=== PATIENT | male | born 1965 | race Caucasian/White ===

== ENCOUNTER → 2020-04-15 09:39 | Outpatient (BNVA) | payer MEDICARE, MEDICAID, SELFPAY | PROVIDERS: PCP Internal Medicine; Visit Provider Surgery | DX: K40.20 Bilateral inguinal hernia, without obstruction or gangrene, not specified as recurrent (principal) | CPT/HCPCS: 99203; 99214 ==

== ENCOUNTER → 2020-04-29 09:38 | Outpatient (BNVA) | payer MEDICARE, MEDICAID, SELFPAY | PROVIDERS: PCP Internal Medicine; Referring Provider Internal Medicine; Visit Provider Internal Medicine Endocrinology, Diabetes & Metabolism | DX: K90.0 Celiac disease (principal); E11.21 Type 2 diabetes mellitus with diabetic nephropathy; E11.40 Type 2 diabetes mellitus with diabetic neuropathy, unspecified; E11.65 Type 2 diabetes mellitus with hyperglycemia; E11.3299 Type 2 diabetes mellitus with mild nonproliferative diabetic retinopathy without macular edema, unspecified eye; E11.22 Type 2 diabetes mellitus with diabetic chronic kidney disease; I12.9 Hypertensive chronic kidney disease with stage 1 through stage 4 chronic kidney disease, or unspecified chronic kidney disease; N18.30 Chronic kidney disease, stage 3 unspecified; K31.84 Gastroparesis; E66.01 Morbid (severe) obesity due to excess calories; E78.00 Pure hypercholesterolemia, unspecified; E04.2 Nontoxic multinodular goiter; Z88.1 Allergy status to other antibiotic agents; Z89.519 Acquired absence of unspecified leg below knee; Z79.4 Long term (current) use of insulin; Z79.899 Other long term (current) drug therapy | CPT/HCPCS: 99212 ==

== ENCOUNTER 2020-05-31 11:29 | Emergency (ER) | payer MEDICARE, MEDICAID, SELFPAY ==
[2020-05-31 11:45] VITALS: BP 180/93; PULSE 115; RESP 22; TEMP 39.1; O2SAT 97; BMI 49.3
[2020-05-31 11:50] VITALS: PULSE 115; RESP 22
[2020-05-31 12:26] VITALS: BP 185/95; PULSE 114; RESP 26; O2SAT 96
--- NOTE | 2020-05-31 12:30 | ECG_ITS ---
Test Reason : [id number] Blood Pressure : / mmHG Vent. Rate : 105 BPM Atrial Rate : 105 BPM P-R Int : 194 ms QRS Dur : 086 ms QT Int : 342 ms P-R-T Axes : 036 -26 045 degrees QTc Int : 452 ms Sinus tachycardia Minimal voltage criteria for LVH, may be normal variant Borderline ECG When compared with ECG of 25-MAR-2020 04:51, No significant change was found Referred By: Emerald Ricardo Electronically Signed By:FRANCISCA MOSS MD
--- NOTE | 2020-05-31 12:30 | XR_ITS ---
EXAMINATION: XR CHEST CLINICAL INFORMATION: Shortness of breath COMPARISON: Chest x-ray 03/16/2018 TECHNIQUE: Frontal view of the chest was obtained. FINDINGS: Cardiac silhouette is normal in size. The lungs are well aerated. There is no lobar consolidation. No pleural effusion or pneumothorax. XR/XR chest 1V IMPRESSION: No acute pulmonary pathology.
--- NOTE | 2020-05-31 12:45 | ED.GENADULT ---
HPI - General Adult General Chief complaint: General Medical Stated complaint: fever Time Seen by Provider: 05/31/20 12:02 Source: patient Mode of arrival: ambulatory Limitations: no limitations History of Present Illness HPI narrative: 55-year-old male with a past medical history of insulin-dependent diabetes, diabetic gastroparesis, morbid obesity, , hyperlipidemia, peripheral vascular disease, renal calculi, celiac disease, left BKA here with complaints of fevers, chills, generalized weakness, nausea, vomiting, nonproductive cough, body ache and shortness of breath since yesterday. No chest pain, abdominal pain, diarrhea. Onset (ago): day(s) Radiation: non-radiation Severity: mild Pain Consistency: intermittent Relieving factors: none Exacerbating factors: none Associated symptoms: cough, fever/chills, headaches, malaise, nausea/vomiting, shortness of breath and weakness Treatments prior to arrival: none Related Data Home Medications Medication Instructions Recorded Confirmed cholecalciferol (vitamin D3) 50 50 mcg PO DAILY 04/15/20 04/29/20 mcg (2,000 unit) capsule gabapentin 600 mg tablet 1,200 mg PO BID 04/15/20 04/29/20 lisinopril 10 mg tablet 15 mg PO BEDTIME 04/15/20 04/29/20 allopurinol 100 mg tablet 100 mg PO DAILY 04/29/20 04/29/20 blood sugar diagnostic #10 ea 04/29/20 04/29/20 metoclopramide HCl 5 mg tablet 5 mg PO QIDACHS 04/30/20 Previous Rx's Medication Instructions Recorded insulin regular hum U-500 conc See Rx Instructions SUBCUT .3 04/29/20 times a day 30 Days #9 ml metoclopramide HCl 5 mg tablet 5 mg PO BID PRN #60 tab 04/30/20 amlodipine 10 mg tablet 10 mg PO DAILY #30 tab 05/26/20 omeprazole 40 mg capsule,delayed 40 mg PO QAM #30 cap 05/26/20 release Allergies Allergy/AdvReac Type Severity Reaction Status Date / Time cephalexin [CEPHALEXIN] Allergy Intermediate UNABLE TO Verified 05/31/20 11:45 MOVE ENTIRE BODY, chills and fever, nausea, chills, fever, and nausea vancomycin [VANCOMYCIN] Allergy Intermediate ITCHY,HIVES, Verified 05/31/20 11:45 nausea and vomiting metformin [METFORMIN] AdvReac Intermediate ADVISED Verified 05/31/20 11:45 NOT TO TAKE ANYMORE,SHAKEY,STOMACH PAINS, stomach upset, stomach upset Review of Systems Review of Systems: Yes all other systems are reviewed and are negative Constitutional: Constitutional: Reports no additional constitutional complaints, Reports body ache(s), Denies chills, Reports fatigue, Reports fever(s), Reports headache(s), Reports malaise and Reports weakness Eyes: Eyes: Reports no additional eye complaints and Denies change in vision ENT: Reports system reviewed and no additional complaints, except as documented, Denies dizziness, Reports headache(s), Denies nasal congestion, Denies nasal discharge and Denies neck pain Cardiovascular: Cardiovascular: Reports no additional cardiovascular complaints, Denies chest pain, Denies leg edema and Reports dyspnea Respiratory: Respiratory: Reports no additional respiratory complaints, Reports cough and Reports dyspnea Gastrointestinal: Gastrointestinal: Reports no additional gastrointestinal complaints, Denies abdominal pain, Denies diarrhea, Reports nausea and Reports vomiting Genitourinary: Genitourinary: Denies urinary incontinence Musculoskeletal: Musculoskeletal: Reports no additional musculoskeletal complaints, Denies back pain, Denies arthralgias, Denies joint swelling, Denies neck pain, Denies numbness and Denies tingling Integumentary/Breasts: Skin/Breast: Reports system reviewed and no additional complaints, except as docu and Denies rash Neurologic: Reports system reviewed and no additional complaints, except as documented, Denies Abnormal speech present, Denies dizziness, Reports headache(s), Denies numbness, Denies tingling and Reports weakness Endocrine: Endocrine: Reports fatigue PMFSH Past Medical History Attestation statement: The following information was validated with the patient. 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 Social History Social History Alcohol intake: never Smoking Status: Never smoker Use of substances other than those prescribed or required for medical reasons: No Advance Directives: No Advance Directives Information Provided: No Physical Exam Vital Signs: Vital Signs: Last Vital Signs Temp 99.5 F 05/31/20 16:00 Pulse 101 H 05/31/20 16:00 Resp 18 05/31/20 16:00 BP 152/83 H 05/31/20 16:00 Pulse Ox 98 05/31/20 16:00 Body Mass Index 49.3 Const: General: cooperative, healthy appearing, comfortable and no acute distress Orientation/consciousness: patient oriented x3 Limitations: no limitations HENMT: Head: Yes normal to inspection Ears: hearing grossly normal bilaterally General nose exam: Normal external nose present Face and sinus: Yes normal facial exam Mouth: Normal oral and palatal mucosa present Throat: Yes posterior oropharynx normal Eyes: General: appearance normal, both eyes and all related structures Pupils: Equal, round and reactive pupils present Neck: Neck: Yes normal visual inspection Chest: Chest palpation & inspection: normal inspection of the chest Resp: Effort & Inspection: normal respiratory effort Auscultation: clear to auscultation bilaterally Cardio: Rate: regular rate Rhythm: regular rhythm Peripheral pulses: Peripheral pulses 2+ throughout GI: Inspection: Yes normal to inspection Palpation (GI): Soft to palpation and nontender Auscultation: normal bowel sounds Back/Spine/Pelvis: Thoracic/Lumbar Spine: thoracic and lumbar spine normal to inspection Skin: General skin exam: no rashes or lesions noted Neuro: General: patient oriented x3, no focal motor deficits and normal sensation to monofilament Cranial nerves: Yes Equal, round and reactive pupils present Cognition (Neuro): normal cognition Speech: No Abnormal speech present Gait exam (Neuro): Normal gait present Motor exam (neuro): 5/5 motor strength present throughout Extrem: General: Yes normal to inspection Course Course Course Narrative: 55-year-old male here with complaints of fevers, chills, nausea, vomiting, myalgias, fatigue, headache, cough, shortness of breath since yesterday. On arrival the patient is febrile and tachycardic. Will need labs including blood cultures and lactic acid, chest x-ray, EKG, COVID testing. Will place PIV and give normal saline bolus and antipyretic. 1521-patient has a leukocytosis. Acute on chronic renal failure. He has some mild hyponatremia. This may be from GI losses. Elevated LDH and ferritin likely secondary to inflammatory response with COVID and flu negative here which is surprising. CXR unremarkable. UA negative. At this time fever and leukocytosis from viral source. Additional imaging pending. 1750-CT abd/pelvis, Ct chest negative. UA negative. I discussed with the patient that at this time I cannot rule out an underlying bacterial process or additional viral processes. I would like to give him broad spectrum antibiotics and admit into the hospital for additional testing and evaluation. I would also like to treat his VERONICA and hyponatremia with IV fluids. Patient declined this. I would also like to trend the patient's troponin and repeat his EKG. He refused this. I did explain to him that I do not know the source for his fever and that additional testing would be warranted. I explained him that if he goes home he could get much worse and end up with bacteremia. He was also made aware that worsening hyponatremia could lead to neurologic changes, seizure and . Worsening renal function may cause additional damage to his kidneys if left untreated. Also elevated troponin may be indicative of a nstemi and should be trended. Patient is aware of this. He chose to sign out against medical advice. He deferred antibiotics. He was welcomed to return at any time. Medical Decision Making MDM Narrative Medical decision making narrative: COVID-19 infection, viral infection, underlying pneumonia, UTI Medical Records Medical records reviewed: Yes I reviewed the patient's medical records. Lab Data Lab results reviewed: Yes I reviewed the patient's lab results. Result diagrams: 05/31/20 12:40 05/31/20 12:40 Labs: Lab Results 05/31/20 05/31/20 05/31/20 Range/Units 12:40 12:40 12:40 WBC 23.4 H (4.8-10.8) X10*3/uL RBC 4.16 L (4.60-5.80) X10*6/uL Hgb 12.1 L (14.0-18.0) g/dl Hct 35.5 L (42-52) % MCV 85.3 (80-98) fL MCH 29.1 (27.0-33.0) pg MCHC 34.1 (31.0-36.0) g/dl RDW 13.9 (11.0-16.0) % Plt Count 215 (160-400) X10*3/uL MPV 11.2 (9.4-12.4) fL Immature Gran % (Auto) 0.9 H (0.0-0.4) % Neut % (Auto) 93.2 H (45-73) % Lymph % (Auto) 1.8 L (20-40) % [place] % (Auto) 3.9 (2-11) % Eos % (Auto) 0.0 (0-4) % Baso % (Auto) 0.2 (0-2) % Lymph # (Auto) 0.4 L (1.2-4.9) X10*3/uL [place]eline # (Auto) 0.9 (0.1-1.2) X10*3/uL Eos # (Auto) 0.0 (0.0-0.4) X10*3/uL Baso # (Auto) 0.0 (0.0-0.2) X10*3/uL Abs Immat Gran (auto) 0.22 H (0.00-0.03) X10*3/uL Absolute Neuts (auto) 21.8 H (2.0-8.3) X10*3/uL Absolute Nucleated RBC 0.000 (0.0-0.012) X10*3/uL Nucleated RBC % (auto) 0.0 (0.0-0.2) /100WBC Smear Tech's Comments VERIFIED PT 14.1 H (10.8-13.0) SEC INR 1.2 H (0.9-1.1) Sodium 126 L (135-145) mmol/L Potassium 5.0 (3.3-5.1) mmol/l Chloride 96 (96-108) mmol/L Carbon Dioxide 17 L (22-29) mmol/L Anion Gap 18 (12-20) BUN 36 H (9-16) mg/dL Creatinine 2.22 H (0.5-1.4) mg/dL Estim Creat Clear Calc 59.5 Estimated GFR 31 Random Glucose 313 H (60-115) mg/dL Lactic Acid (0.5-2.0) mmol/L Calcium 8.7 (8.4-10.2) mg/dL Magnesium 1.6 (1.6-2.6) mg/dL Ferritin 802 H (20-250) ng/mL Total Bilirubin 0.7 (0.0-1.0) mg/dL Direct Bilirubin 0.2 (0.0-0.5) mg/dL AST 23 (5-37) U/L ALT 33 (0-40) U/L Alkaline Phosphatase 105 (39-117) U/L Lactate Dehydrogenase 416 H (118-273) U/L Troponin I High Sens (<3.5-35.0) ng/L Total Protein 7.8 (6.5-8.0) g/dL Albumin 3.8 (3.5-5.0) g/dL Procalcitonin ng/mL Urine Color Urine Appearance Urine pH (5.0-8.0) Ur Specific [place] (1.005-1.025) Urine Protein (NEG-TRACE) MG/DL Urine Glucose (UA) (NEG) MG/DL Urine Ketones (NEG) MG/DL Urine Blood (NEG) Urine Nitrite (NEG) Ur Leukocyte Esterase (NEG) Urine RBC (0) /HPF Urine WBC (0-4) /HPF Ur Squamous Epith Cells /LPF Urine Bacteria /LPF Coronavirus (PCR) (Negative) Influenza Type A (PCR) (Negative) Influenza Type B (PCR) (Negative) RSV RNA Qual (PCR) (Negative) 05/31/20 05/31/20 05/31/20 Range/Units 12:40 12:40 12:40 WBC (4.8-10.8) X10*3/uL RBC (4.60-5.80) X10*6/uL Hgb (14.0-18.0) g/dl Hct (42-52) % MCV (80-98) fL MCH (27.0-33.0) pg MCHC (31.0-36.0) g/dl RDW (11.0-16.0) % Plt Count (160-400) X10*3/uL MPV (9.4-12.4) fL Immature Gran % (Auto) (0.0-0.4) % Neut % (Auto) (45-73) % Lymph % (Auto) (20-40) % Ev[place]eline % (Auto) (2-11) % Eos % (Auto) (0-4) % Baso % (Auto) (0-2) % Lymph # (Auto) (1.2-4.9) X10*3/uL [place] # (Auto) (0.1-1.2) X10*3/uL Eos # (Auto) (0.0-0.4) X10*3/uL Baso # (Auto) (0.0-0.2) X10*3/uL Abs Immat Gran (auto) (0.00-0.03) X10*3/uL Absolute Neuts (auto) (2.0-8.3) X10*3/uL Absolute Nucleated RBC (0.0-0.012) X10*3/uL Nucleated RBC % (auto) (0.0-0.2) /100WBC Smear Tech's Comments PT (10.8-13.0) SEC INR (0.9-1.1) Sodium (135-145) mmol/L Potassium (3.3-5.1) mmol/l Chloride (96-108) mmol/L Carbon Dioxide (22-29) mmol/L Anion Gap (12-20) BUN (9-16) mg/dL Creatinine (0.5-1.4) mg/dL Estim Creat Clear Calc Estimated GFR Random Glucose (60-115) mg/dL Lactic Acid 1.3 (0.5-2.0) mmol/L Calcium (8.4-10.2) mg/dL Magnesium (1.6-2.6) mg/dL Ferritin (20-250) ng/mL Total Bilirubin (0.0-1.0) mg/dL Direct Bilirubin (0.0-0.5) mg/dL AST (5-37) U/L ALT (0-40) U/L Alkaline Phosphatase (39-117) U/L Lactate Dehydrogenase (118-273) U/L Troponin I High Sens 18.1 (<3.5-35.0) ng/L Total Protein (6.5-8.0) g/dL Albumin (3.5-5.0) g/dL Procalcitonin 0.80 ng/mL Urine Color Urine Appearance Urine pH (5.0-8.0) Ur Specific [place] (1.005-1.025) Urine Protein (NEG-TRACE) MG/DL Urine Glucose (UA) (NEG) MG/DL Urine Ketones (NEG) MG/DL Urine Blood (NEG) Urine Nitrite (NEG) Ur Leukocyte Esterase (NEG) Urine RBC (0) /HPF Urine WBC (0-4) /HPF Ur Squamous Epith Cells /LPF Urine Bacteria /LPF Coronavirus (PCR) (Negative) Influenza Type A (PCR) (Negative) Influenza Type B (PCR) (Negative) RSV RNA Qual (PCR) (Negative) 05/31/20 05/31/20 Range/Units 12:44 15:46 WBC (4.8-10.8) X10*3/uL RBC (4.60-5.80) X10*6/uL Hgb (14.0-18.0) g/dl Hct (42-52) % MCV (80-98) fL MCH (27.0-33.0) pg MCHC (31.0-36.0) g/dl RDW (11.0-16.0) % Plt Count (160-400) X10*3/uL MPV (9.4-12.4) fL Immature Gran % (Auto) (0.0-0.4) % Neut % (Auto) (45-73) % Lymph % (Auto) (20-40) % Evangeline % (Auto) (2-11) % Eos % (Auto) (0-4) % Baso % (Auto) (0-2) % Lymph # (Auto) (1.2-4.9) X10*3/uL [place] # (Auto) (0.1-1.2) X10*3/uL Eos # (Auto) (0.0-0.4) X10*3/uL Baso # (Auto) (0.0-0.2) X10*3/uL Abs Immat Gran (auto) (0.00-0.03) X10*3/uL Absolute Neuts (auto) (2.0-8.3) X10*3/uL Absolute Nucleated RBC (0.0-0.012) X10*3/uL Nucleated RBC % (auto) (0.0-0.2) /100WBC Smear Tech's Comments PT (10.8-13.0) SEC INR (0.9-1.1) Sodium (135-145) mmol/L Potassium (3.3-5.1) mmol/l Chloride (96-108) mmol/L Carbon Dioxide (22-29) mmol/L Anion Gap (12-20) BUN (9-16) mg/dL Creatinine (0.5-1.4) mg/dL Estim Creat Clear Calc Estimated GFR Random Glucose (60-115) mg/dL Lactic Acid (0.5-2.0) mmol/L Calcium (8.4-10.2) mg/dL Magnesium (1.6-2.6) mg/dL Ferritin (20-250) ng/mL Total Bilirubin (0.0-1.0) mg/dL Direct Bilirubin (0.0-0.5) mg/dL AST (5-37) U/L ALT (0-40) U/L Alkaline Phosphatase (39-117) U/L Lactate Dehydrogenase (118-273) U/L Troponin I High Sens (<3.5-35.0) ng/L Total Protein (6.5-8.0) g/dL Albumin (3.5-5.0) g/dL Procalcitonin ng/mL Urine Color YELLOW Urine Appearance CLEAR Urine pH 6.0 (5.0-8.0) Ur Specific [place] 1.020 (1.005-1.025) Urine Protein 3+ H (NEG-TRACE) MG/DL Urine Glucose (UA) 250 H (NEG) MG/DL Urine Ketones NEG (NEG) MG/DL Urine Blood 2+ H (NEG) Urine Nitrite NEG (NEG) Ur Leukocyte Esterase NEG (NEG) Urine RBC 15-29 H (0) /HPF Urine WBC 0-2 (0-4) /HPF Ur Squamous Epith Cells TRACE /LPF Urine Bacteria NONE /LPF Coronavirus (PCR) NEGATIVE (Negative) Influenza Type A (PCR) NEGATIVE (Negative) Influenza Type B (PCR) NEGATIVE (Negative) RSV RNA Qual (PCR) NEGATIVE (Negative) Imaging Data Ct scan/chest/abdomen: Attestation: I personally reviewed and interpreted this imaging study as follows: Radiologist's impression: CT/CT chest wo con IMPRESSION: 1. Mildly to moderately prominent right inguinal and iliac chain lymphadenopathy has increased compared to 03/25/2020. Otherwise, no demonstrated acute infectious process within the chest, abdomen, or pelvis. Moderate cutaneous thickening and mild subcutaneous edema within the lower anterior abdominal wall and visualized portions of the bilateral upper extremities. 2. Hepatomegaly with hepatic steatosis. Nonspecific splenomegaly. Chest x-ray: Attestation: I personally reviewed and interpreted this imaging study as follows: Radiologist's impression: EXAMINATION: XR CHEST CLINICAL INFORMATION: Shortness of breath COMPARISON: Chest x-ray 03/16/2018 TECHNIQUE: Frontal view of the chest was obtained. FINDINGS: Cardiac silhouette is normal in size. The lungs are well aerated. There is no lobar consolidation. No pleural effusion or pneumothorax. XR/XR chest 1V IMPRESSION: No acute pulmonary pathology. Discharge Plan Discharge Clinical Impression: Fever of unknown origin, Acute hyponatremia, Leukocytosis, VERONICA (acute kidney injury), Elevated troponin Patient Disposition: Left Against Medical Advice Instructions: Against Medical Advice (ED) Additional Instructions: You have a fever and we do not know the cause of it. It was recommended that you stay in the hospital for additional testing and to receive IV antibiotics. You declined this. You are welcome to return at any time. Prescriptions: No Action metoclopramide HCl [Reglan] 5 mg tablet 5 mg PO QIDACHS RF: 0 metoclopramide HCl 5 mg tablet 5 mg PO BID PRN (Reason: nausea and vomiting) Qty: 60 RF: 0 amlodipine 10 mg tablet 10 mg PO DAILY Qty: 30 RF: 5 omeprazole 40 mg capsule,delayed release(DR/EC) 40 mg PO QAM Qty: 30 RF: 4 gabapentin 600 mg tablet 1,200 mg PO BID RF: 0 cholecalciferol (vitamin D3) 50 mcg (2,000 unit) capsule 50 mcg PO DAILY RF: 0 lisinopril 10 mg tablet 15 mg PO BEDTIME RF: 0 allopurinol 100 mg tablet 100 mg PO DAILY RF: 0 (DME) FreeStyle Lite Strips Strip See Rx Instructions ea Not Applicable .MEDSUPPLY Qty: 10 RF: 0 insulin regular hum U-500 conc 500 unit/mL (3 mL) insulin pen See Rx Instructions subcut .3 times a day 30 Days Qty: 9 RF: 6 Referrals: Shereen Cortes MD [Primary Care Provider] - 2 days Interventions: ED Discharge Assessment Last Done: 05/31/20 17:57 Discharge Date/Time: 05/31/20 17:59
[2020-05-31] MEDS: Acetaminophen 325 MG TABLET 975 MG PO (12:56)
[2020-05-31] MEDS: 0.9 % Sodium Chloride 1,000 ML 999 ML IV (12:57)
--- NOTE | 2020-05-31 12:59 | PC.NURSE ---
iv inserted, labs, drawn, criminal researcher applied sinus tach 115, medicated per order, covid swab performed, will continue to monitor.
[2020-05-31 13:07] LABS: Basophils Percent Auto 0.2 % (0-2); Hematocrit 35.5 % (42-52); Hemoglobin 12.1 g/dl (14.0-18.0); Imm Gran Abs Auto 0.22 X10*3/uL (0.00-0.03); Imm Gran Pct Auto 0.9 % (0.0-0.4); Lymphocytes Absolute Auto 0.4 X10*3/uL (1.2-4.9); Lymphocytes Percent Auto 1.8 % (20-40); MANUAL DIFF FLAG SCAN; Mean Corpuscular HGB Conc 34.1 g/dl (31.0-36.0); Mean Corpuscular Hemoglobin 29.1 pg (27.0-33.0); Mean Corpuscular Volume 85.3 fL (80-98); Mean Platelet Volume 11.2 fL (9.4-12.4); Monocytes Absolute Auto 0.9 X10*3/uL (0.1-1.2); Monocytes Percent Auto 3.9 % (2-11); Neutrophils Absolute Auto 21.8 X10*3/uL (2.0-8.3); Neutrophils Percent Auto 93.2 % (45-73); Platelet Count 215 X10*3/uL (160-400); Red Blood Count 4.16 X10*6/uL (4.60-5.80); Red Cell Distribution Width 13.9 % (11.0-16.0); SCAN SMEAR FLAG 1; White Blood Count 23.4 X10*3/uL (4.8-10.8)
[2020-05-31 13:13] LABS: INTERNATIONAL NORM RATIO 1.2 (0.9-1.1); Prothrombin Time 14.1 SEC (10.8-13.0)
[2020-05-31 13:27] LABS: SLIDE REVIEW VERIFIED
[2020-05-31 13:36] LABS: Troponin-I High Sensitivity 18.1 ng/L (<3.5-35.0)
[2020-05-31 13:37] LABS: Alanine Aminotransferase 33 U/L (0-40); Albumin Level 3.8 g/dL (3.5-5.0); Alkaline Phosphatase 105 U/L (39-117); Anion Gap 18 (12-20); Aspartate Amino Transferase 23 U/L (5-37); Bilirubin Direct 0.2 mg/dL (0.0-0.5); Bilirubin Total 0.7 mg/dL (0.0-1.0); Blood Urea Nitrogen 36 mg/dL (9-16); Calcium 8.7 mg/dL (8.4-10.2); Carbon Dioxide 17 mmol/L (22-29); Chloride 96 mmol/L (96-108); Creatinine Clr Calc Pharmacy 59.5; Estimated Glomerular Filt Rate 31; Glucose Random 313 mg/dL (60-115); Lactate Dehydrogenase 416 U/L (118-273); Magnesium 1.6 mg/dL (1.6-2.6); Sodium 126 mmol/L (135-145); Total Protein 7.8 g/dL (6.5-8.0)
[2020-05-31 13:42] LABS: Lactic Acid 1.3 mmol/L (0.5-2.0)
[2020-05-31 13:54] LABS: Ferritin 802 ng/mL (20-250)
[2020-05-31 14:04] VITALS: BP 124/66; PULSE 109; RESP 20; TEMP 37.7; O2SAT 94
--- NOTE | 2020-05-31 14:07 | PC.NURSE ---
patient a&ox2, cardiac technician sinus tach 108, vss, will continue to monitor.
[2020-05-31 14:25] LABS: Influenza A PCR NEGATIVE (Negative); Influenza B PCR NEGATIVE (Negative); Resp Syncy Virus RNA Qual PCR NEGATIVE (Negative); SARS COV2 PCR INHOUSE NEGATIVE (Negative)
[2020-05-31 14:45] VITALS: BP 129/83; PULSE 104; RESP 14; TEMP 38; O2SAT 96
--- NOTE | 2020-05-31 15:21 | CT_ITS ---
EXAMINATION: CT CHEST, ABDOMEN, AND PELVIS WITHOUT CONTRAST CLINICAL INFORMATION: Fever, cough. Shortness of breath. Vomiting. Elevated white blood cell count. COMPARISON: Chest radiograph from 05/31/2020. CT abdomen and pelvis from 03/25/2020. CTA chest from 06/22/2016. TECHNIQUE: Multidetector volumetric imaging was performed from the thoracic inlet to the pubic symphysis without intravenous contrast. Sagittal and coronal reformatted images were obtained on the technologist workstation. This CT examination was performed using dose optimization techniques as appropriate, variously including the following: *Automated exposure control. *Adjustment of mA and/or kV according to patient size (this includes techniques or standardized protocols for targeted exams where dose is matched to indication/reason for exam; i.e. extremities or head). *Use of iterative reconstruction technique. DLP: 2258 mGy-cm FINDINGS: CHEST: Lungs: Scattered 0.2 to 0.3 cm calcified granulomas throughout the lungs. Mild bilateral dependent atelectasis. Otherwise, no diffuse or focal lung parenchymal abnormalities. No pleural effusion or pneumothorax. The airways remain patent. Mediastinum: Coronary artery calcifications. The cardiac structures are normal in appearance. No mediastinal free fluid or gas. No pericardial effusion. No hilar, mediastinal, or axillary lymphadenopathy. ABDOMEN/PELVIS: Liver, Biliary Ducts, and Gallbladder: The liver is enlarged (21 cm in sagittal dimension) and decrease in attenuation (-14 Hounsfield units). No demonstrated focal hepatic lesions. No biliary ductal dilatation. The gallbladder is decompressed without radiopaque gallstones. No pericholecystic fluid. Pancreas: The pancreas is normal in appearance. Adrenal Glands: The adrenal glands are normal in appearance. Spleen: The spleen is enlarged measuring up to 14 cm in long axis. No focal splenic lesions demonstrated. Kidneys and Ureters: The kidneys demonstrate symmetric nephrograms without evidence of nephrolithiasis or hydronephrosis. No ureterolithiasis or hydroureter. Mild bilateral perinephric fat stranding without discrete fluid collection. Urinary Bladder: The urinary bladder is partially distended without focal wall thickening. No bladder calculi are demonstrated. Gastrointestinal System: The stomach is decompressed and therefore not well evaluated on this exam. The small bowel is of normal caliber without regions of abnormal wall enhancement. The colon is normal in appearance without focal wall thickening or pericolonic inflammatory change. Normal appendix. Genitourinary: The prostate gland and seminal vesicles are normal in appearance. Intra-abdominal and Retroperitoneal Spaces: No intra-abdominal free fluid collections or gas. Right inguinal and iliac chain lymphadenopathy has mildly increased in prominence compared to 03/25/2020, measuring up to 1.7 cm in short axis. No mesenteric or additional retroperitoneal lymphadenopathy. VASCULATURE: The aorta is of normal contour and caliber. MUSCULOSKELETAL: Moderate multilevel degenerative changes of the spine. Chronic healed fracture of the posterior right 6th rib. No lytic or sclerotic osseous lesions demonstrated. No soft tissue masses demonstrated. Moderate bilateral fat-containing inguinal hernias. Mild to moderate subcutaneous edema of the lower abdomen and visualized upper extremities. Moderate cutaneous thickening of the anterior abdominal wall. CT/CT abdomen pelvis wo con IMPRESSION: 1. Mildly to moderately prominent right inguinal and iliac chain lymphadenopathy has increased compared to 03/25/2020. Otherwise, no demonstrated acute infectious process within the chest, abdomen, or pelvis. Moderate cutaneous thickening and mild subcutaneous edema within the lower anterior abdominal wall and visualized portions of the bilateral upper extremities. 2. Hepatomegaly with hepatic steatosis. Nonspecific splenomegaly.
[2020-05-31 16:00] VITALS: BP 152/83; PULSE 101; RESP 18; TEMP 37.5; O2SAT 98
[2020-05-31 16:21] LABS: Glucose Urine UA 250 MG/DL (NEG); Leukocyte Esterase Urine NEG (NEG); Nitrite Urine NEG (NEG); Urine Blood 2+ (NEG); Urine Ketones NEG (NEG); Urine Protein 3+ MG/DL (NEG-TRACE)
[2020-05-31 16:23] LABS: Appearance Urine CLEAR; Color Urine YELLOW
[2020-05-31 16:28] LABS: Squamous Epithelial Cell Urine TRACE /LPF; WBC Urine 0-2 /HPF (0-4)
== END 2020-05-31 17:59 | disposition left against medical advice (07) ==
PROVIDERS: Nurse Practitioner Family; Emergency Provider Emergency Medicine Emergency Medical Services; PCP Internal Medicine
DX: R50.9 Fever, unspecified (principal); Z20.828 Contact with and (suspected) exposure to other viral communicable diseases; E87.1 Hypo-osmolality and hyponatremia; D72.829 Elevated white blood cell count, unspecified; N17.9 Acute kidney failure, unspecified; R77.8 Other specified abnormalities of plasma proteins; E11.9 Type 2 diabetes mellitus without complications; I10 Essential (primary) hypertension; E78.00 Pure hypercholesterolemia, unspecified; Z79.4 Long term (current) use of insulin; Z89.519 Acquired absence of unspecified leg below knee
CPT/HCPCS: 0241U; 36415; 71045; 71250; 74176; 80048; 80076; 81001; 82728; 83605; 83615; 83735; 84145; 84484; 85025; 85610; 87040; 93005; 96360; 99284

== ENCOUNTER 2020-06-17 10:18 | Emergency (ER) | payer MEDICARE, MEDICAID, SELFPAY ==
[2020-06-17 10:35] VITALS: BP 148/87; PULSE 97; RESP 16; TEMP 36.7; O2SAT 97; BMI 47.1
--- NOTE | 2020-06-17 10:45 | US_ITS ---
EXAMINATION: US VENOUS ULTRASOUND WITH DOPPLER LOWER EXTREMITY, RIGHT CLINICAL INFORMATION: Swelling and pain. COMPARISON: None TECHNIQUE: Ultrasound of the deep veins is performed from the hip to the calf with compression sonography and color and pulse Doppler assessment. Spectral analysis with color-flow imaging is performed. FINDINGS: There is normal venous compression and respiratory variation and augmented flow. The visualized common femoral vein, superficial femoral vein, profunda femoral vein, popliteal vein, and the trifurcation region shows no evidence of deep venous thrombosis. There is no significant popliteal fossa cyst. There is small lobulated lymph node in the right groin measuring 2.6 cm in short axis. If the patient's symptoms persist, followup ultrasound in 5 days 7 days might be of value to exclude proximal propagation from a non-visualized calf vein. US/US venous duplex LE RT IMPRESSION: No DVT demonstrated in the right lower extremity. Small right groin lymph node with a short axis measurements of 3.6 cm. Echogenic medulla is not visualized.
--- NOTE | 2020-06-17 10:52 | ECG_ITS ---
Test Reason : LEG PAIN Blood Pressure : / mmHG Vent. Rate : 091 BPM Atrial Rate : 091 BPM P-R Int : 204 ms QRS Dur : 084 ms QT Int : 356 ms P-R-T Axes : 038 -26 025 degrees QTc Int : 437 ms Normal sinus rhythm Moderate voltage criteria for LVH, may be normal variant Borderline ECG When compared with ECG of 31-MAY-2020 14:49, No significant change was found Referred By: Sharri Faith Electronically Signed By:FRANCISCA MOSS MD
--- NOTE | 2020-06-17 10:52 | PC.NURSE ---
+pp via doppler, ,mlp (avery) aware.
--- NOTE | 2020-06-17 10:54 | ED_ITS ---
HPI - General Adult General Chief complaint: General Medical Stated complaint: swollen rt leg Time Seen by Provider: 06/17/20 10:40 Source: patient Mode of arrival: ambulatory Limitations: no limitations History of Present Illness HPI narrative: 55 y/o male with history of poorly controlled DM on insulin, PVD s/p left BKA, morbid obesity, celiac disease who presents with worsening right lower leg pain swelling and pain for the last 2-3 weeks. He states it is very positional and cramp like. He reports his leg is warm. Pain can be worse with walking and movement. No fever or chills. Episode of chest pain last night at rest that lasted a few minutes which was not alarming to him because it happens from time to time. MD complaint: right leg pain Onset (ago): week(s) (3) Location: right and lower extremity Radiation: non-radiation Severity scale (1-10): 6 Quality: aching and sharp Pain Consistency: constant Relieving factors: immobilization Exacerbating factors: movement Associated symptoms: chest pain Treatments prior to arrival: none Related Data Home Medications Medication Instructions Recorded Confirmed cholecalciferol (vitamin D3) 50 50 mcg PO DAILY 04/15/20 04/29/20 mcg (2,000 unit) capsule gabapentin 600 mg tablet 1,200 mg PO BID 04/15/20 04/29/20 lisinopril 10 mg tablet 15 mg PO BEDTIME 04/15/20 04/29/20 allopurinol 100 mg tablet 100 mg PO DAILY 04/29/20 04/29/20 blood sugar diagnostic #10 ea 04/29/20 04/29/20 metoclopramide HCl 5 mg tablet 5 mg PO QIDACHS 04/30/20 Previous Rx's Medication Instructions Recorded insulin regular hum U-500 conc See Rx Instructions SUBCUT .3 04/29/20 times a day 30 Days #9 ml amlodipine 10 mg tablet 10 mg PO DAILY #30 tab 05/26/20 omeprazole 40 mg capsule,delayed 40 mg PO QAM #30 cap 05/26/20 release metoclopramide HCl 5 mg tablet 5 mg PO BID PRN #60 tab 06/02/20 power wheellchair #1 ea 06/11/20 doxycycline monohydrate 100 mg PO BID #14 cap 06/17/20 Allergies Allergy/AdvReac Type Severity Reaction Status Date / Time cephalexin [CEPHALEXIN] Allergy Intermediate UNABLE TO Verified 05/31/20 11:45 MOVE ENTIRE BODY, chills and fever, nausea, chills, fever, and nausea vancomycin [VANCOMYCIN] Allergy Intermediate ITCHY,HIVES, Verified 05/31/20 11:45 nausea and vomiting metformin [METFORMIN] AdvReac Intermediate ADVISED Verified 05/31/20 11:45 NOT TO TAKE ANYMORE,SHAKEY,STOMACH PAINS, stomach upset, stomach upset Review of Systems Review of Systems: Constitutional: No Fever, No Chills ENT/Mouth: No sore throat, No Rhinorrhea, No Swallowing Difficulty Eyes: No Eye Pain, No Swelling, No Redness Cardiovascular: + Chest Pain, No SOB, No Orthopnea, + Edema Respiratory: No Cough, No Sputum, No Wheezing, No dyspnea Gastrointestinal: No Nausea, No Vomiting, No Diarrhea, No abdominal Pain Genitourinary: No Dysuria, No Urinary Frequency, No Hematuria Musculoskeletal: + joint pain, + Myalgias Skin: No Skin Lesions, No rash Neuro: No Weakness, No Numbness, No Dizziness, No Headache Psych: No Anxiety/Panic, No Depression Heme/Lymph: No Bruising, No Lymphadenopathy Endocrine: No Polyuria, No Polydipsia PMFSH Past Medical History Attestation statement: The following information was validated with the patient. Medical History Celiac disease Diabetes mellitus Diabetes type 2, uncontrolled Diabetic gastroparesis associated with type 2 diabetes mellitus Diabetic nephropathy associated with type 2 diabetes mellitus Diabetic neuropathy associated with type 2 diabetes mellitus Gastroparesis Hypercholesterolemia Hypertension residential (current) use of insulin Morbid obesity Non-proliferative diabetic retinopathy Non-toxic multinodular goiter Peripheral vascular disease Renal calculi Surgical History (Updated 06/17/20 @ 10:00 by Monique Gil NP) History of below-knee amputation (~06/28/17) History of esophagogastroduodenoscopy (EGD) (~09/26/13) History of lobectomy of thyroid (~03/25/15) History of repair of ACL (~2004) History of skin graft (~1993) S/P BKA (below knee amputation) bilateral Family History Family History Father Hypertension Diabetes Mother No problems noted. Social History Social History Alcohol intake: never Smoking Status: Never smoker Physical Exam Vital Signs: Vital Signs: Last Vital Signs Temp 98.0 F 06/17/20 10:35 Pulse 92 06/17/20 12:00 Resp 18 06/17/20 12:00 BP 148/87 H 06/17/20 10:35 Pulse Ox 95 06/17/20 12:00 Body Mass Index 47.1 Appearance: Alert. Oriented X3. No acute distress. HEENT: normal inspection CVS: Normal heart rate and rhythm. Pulses normal. Respiratory: No respiratory distress. Skin: Skin warm and dry. Normal skin color. Normal skin turgor. No rashes. Extremities: s/p left BKA, right lower extremity warm with chronic venous stasis changes, mild blistering, 2+ edema. 1+ dp pulse palpable and dopplerable Neuro: Oriented X 3. No motor deficit. No sensory deficit. Course Course Course Narrative: 55 y/o male with poorly controlled DM, PVD s/p BKA presenting with painful swollen RLE. Doubt arterial occlusion given leg is warm and palpable pulse. Concern for DVT, LE U/S pending. He wears a compression stocking but does not sit with his leg elevated. Possible venous insufficiency. Reevaluation(s) Reevaluation #1: US negative for DVT. No leukocytosis. Edema and pain likely related to venous insufficiency - recommend f/u with Dr. Ahmadi. Will treat for possible mild superimposed cellulitis with plan to f/u with PCP to ensure resolution. Stable for d/c. Medical Decision Making Lab Data Result diagrams: 06/17/20 12:54 06/17/20 11:03 Labs: Lab Results 06/17/20 06/17/20 06/17/20 Range/Units 11:03 11:03 11:03 WBC (4.8-10.8) X10*3/uL RBC (4.60-5.80) X10*6/uL Hgb (14.0-18.0) g/dl Hct (42-52) % MCV (80-98) fL MCH (27.0-33.0) pg MCHC (31.0-36.0) g/dl RDW (11.0-16.0) % Plt Count (160-400) X10*3/uL MPV (9.4-12.4) fL Immature Gran % (Auto) (0.0-0.4) % Neut % (Auto) (45-73) % Lymph % (Auto) (20-40) % [place] % (Auto) (2-11) % Eos % (Auto) (0-4) % Baso % (Auto) (0-2) % Lymph # (Auto) (1.2-4.9) X10*3/uL [place] # (Auto) (0.1-1.2) X10*3/uL Eos # (Auto) (0.0-0.4) X10*3/uL Baso # (Auto) (0.0-0.2) X10*3/uL Abs Immat Gran (auto) (0.00-0.03) X10*3/uL Absolute Neuts (auto) (2.0-8.3) X10*3/uL Absolute Nucleated RBC (0.0-0.012) X10*3/uL Nucleated RBC % (auto) (0.0-0.2) /100WBC PT 13.0 (10.8-13.0) SEC INR 1.1 (0.9-1.1) APTT 36.3 (24.1-38.0) SEC Sodium 131 L (135-145) mmol/L Potassium 5.3 H (3.3-5.1) mmol/l Chloride 101 (96-108) mmol/L Carbon Dioxide 23 (22-29) mmol/L Anion Gap 12 (12-20) BUN 41 H (9-16) mg/dL Creatinine 2.08 H (0.5-1.4) mg/dL Estim Creat Clear Calc 61.8 Estimated GFR 34 Random Glucose 383 H* (60-115) mg/dL Calcium 8.4 (8.4-10.2) mg/dL B-Natriuretic Peptide 29 (<100) pg/mL 06/17/20 Range/Units 12:54 WBC 8.3 (4.8-10.8) X10*3/uL RBC 3.79 L (4.60-5.80) X10*6/uL Hgb 10.9 L (14.0-18.0) g/dl Hct 32.7 L (42-52) % MCV 86.3 (80-98) fL MCH 28.8 (27.0-33.0) pg MCHC 33.3 (31.0-36.0) g/dl RDW 13.7 (11.0-16.0) % Plt Count 297 D (160-400) X10*3/uL MPV 10.0 (9.4-12.4) fL Immature Gran % (Auto) 0.7 H (0.0-0.4) % Neut % (Auto) 72.4 (45-73) % Lymph % (Auto) 18.2 L (20-40) % [place] % (Auto) 7.8 (2-11) % Eos % (Auto) 0.5 (0-4) % Baso % (Auto) 0.4 (0-2) % Lymph # (Auto) 1.5 (1.2-4.9) X10*3/uL [place] # (Auto) 0.7 (0.1-1.2) X10*3/uL Eos # (Auto) 0.0 (0.0-0.4) X10*3/uL Baso # (Auto) 0.0 (0.0-0.2) X10*3/uL Abs Immat Gran (auto) 0.06 H (0.00-0.03) X10*3/uL Absolute Neuts (auto) 6.0 (2.0-8.3) X10*3/uL Absolute Nucleated RBC 0.000 (0.0-0.012) X10*3/uL Nucleated RBC % (auto) 0.0 (0.0-0.2) /100WBC PT (10.8-13.0) SEC INR (0.9-1.1) APTT (24.1-38.0) SEC Sodium (135-145) mmol/L Potassium (3.3-5.1) mmol/l Chloride (96-108) mmol/L Carbon Dioxide (22-29) mmol/L Anion Gap (12-20) BUN (9-16) mg/dL Creatinine (0.5-1.4) mg/dL Estim Creat Clear Calc Estimated GFR Random Glucose (60-115) mg/dL Calcium (8.4-10.2) mg/dL B-Natriuretic Peptide (<100) pg/mL ECG Data Attestation: I personally reviewed and interpreted this ECG as follows: Interpretation: normal sinus rhythm, HR 91, normal QTc, increased voltage consistent with LVH. no ischemic changes. Scores Wells DVT Unilateral pitting edema: 1 Score: 1 2-tier Risk: unlikely risk (5%) 3-tier Risk: moderate risk (17%) Critical Care Time Critical Care Time Critical Care Time: No Discharge Plan Discharge Clinical Impression: Chronic venous insufficiency Cellulitis Qualifiers: Site of cellulitis: extremity Site of cellulitis of extremity: lower extremity Laterality: right Qualified Code(s): L03.115 - Cellulitis of right lower limb Patient Disposition: Home, Self-Care Instructions: Cellulitis (ED), Leg Edema (ED), Venous Insufficiency (DC) Additional Instructions: Your ultrasound today did not show any evidence of blood clot. Your swelling and pain is likely due to poor vein function in your leg. Recommend following up with Vascular - Dr. Ahmadi. Elevate your leg whenever possible. Recommend changing to a thigh-high compression stocking. There is very mild skin infection of the lower leg so you are being started on antibiotics for this. Recommend follow up with your doctor in 2 days for re-evaluation. If you develop worsening pain, fevers, or worsening redness of the leg come back to the ER for further evaluation. Prescriptions: New doxycycline monohydrate 100 mg capsule 100 mg PO BID Qty: 14 RF: 0 No Action metoclopramide HCl [Reglan] 5 mg tablet 5 mg PO QIDACHS RF: 0 amlodipine 10 mg tablet 10 mg PO DAILY Qty: 30 RF: 5 omeprazole 40 mg capsule,delayed release(DR/EC) 40 mg PO QAM Qty: 30 RF: 4 metoclopramide HCl 5 mg tablet 5 mg PO BID PRN (Reason: for nausea/vomiting) Qty: 60 RF: 0 (DME) power wheellchair See Rx Instructions .Route .MEDSUPPLY Qty: 1 RF: 0 gabapentin 600 mg tablet 1,200 mg PO BID RF: 0 cholecalciferol (vitamin D3) 50 mcg (2,000 unit) capsule 50 mcg PO DAILY RF: 0 lisinopril 10 mg tablet 15 mg PO BEDTIME RF: 0 allopurinol 100 mg tablet 100 mg PO DAILY RF: 0 (DME) FreeStyle Lite Strips Strip See Rx Instructions ea Not Applicable .MEDSUPPLY Qty: 10 RF: 0 insulin regular hum U-500 conc 500 unit/mL (3 mL) insulin pen See Rx Instructions subcut .3 times a day 30 Days Qty: 9 RF: 6 Referrals: Geremias Ahmadi MD [Physician] - 2 days (PVD) Yuni Aguilar MD [Physician] - 2 days Interventions: ED Discharge Assessment Last Done: 06/17/20 13:31 Discharge Date/Time: 06/17/20 13:32
[2020-06-17 11:24] LABS: INTERNATIONAL NORM RATIO 1.1 (0.9-1.1)
[2020-06-17 11:27] LABS: Partial Thromboplastin Time 36.3 SEC (24.1-38.0)
[2020-06-17 11:43] LABS: B Type Natriuretic Peptide 29 pg/mL (<100)
[2020-06-17 11:55] LABS: Anion Gap 12 (12-20); Blood Urea Nitrogen 41 mg/dL (9-16); Calcium 8.4 mg/dL (8.4-10.2); Carbon Dioxide 23 mmol/L (22-29); Chloride 101 mmol/L (96-108); Creatinine Clr Calc Pharmacy 61.8; Estimated Glomerular Filt Rate 34; Glucose Random 383 mg/dL (60-115); Potassium 5.3 mmol/l (3.3-5.1); Sodium 131 mmol/L (135-145)
[2020-06-17 12:00] VITALS: PULSE 92; RESP 18; O2SAT 95
[2020-06-17 13:08] LABS: Basophils Percent Auto 0.4 % (0-2); Eosinophils Percent Auto 0.5 % (0-4); Hematocrit 32.7 % (42-52); Hemoglobin 10.9 g/dl (14.0-18.0); Imm Gran Abs Auto 0.06 X10*3/uL (0.00-0.03); Imm Gran Pct Auto 0.7 % (0.0-0.4); Lymphocytes Absolute Auto 1.5 X10*3/uL (1.2-4.9); Lymphocytes Percent Auto 18.2 % (20-40); MANUAL DIFF FLAG NO; Mean Corpuscular HGB Conc 33.3 g/dl (31.0-36.0); Mean Corpuscular Hemoglobin 28.8 pg (27.0-33.0); Mean Corpuscular Volume 86.3 fL (80-98); Monocytes Absolute Auto 0.7 X10*3/uL (0.1-1.2); Monocytes Percent Auto 7.8 % (2-11); Neutrophils Percent Auto 72.4 % (45-73); Platelet Count 297 X10*3/uL (160-400); Red Blood Count 3.79 X10*6/uL (4.60-5.80); Red Cell Distribution Width 13.7 % (11.0-16.0); White Blood Count 8.3 X10*3/uL (4.8-10.8)
== END 2020-06-17 13:32 | disposition home or self-care (01) ==
PROVIDERS: Physician Assistant; Emergency Provider Emergency Medicine; PCP Internal Medicine
DX: L03.115 Cellulitis of right lower limb (principal); I87.2 Venous insufficiency (chronic) (peripheral); R60.0 Localized edema; M79.661 Pain in right lower leg; I10 Essential (primary) hypertension; Z79.899 Other long term (current) drug therapy
CPT/HCPCS: 36415; 80048; 83880; 85025; 85610; 85730; 93005; 93971; 96374; 99284

== ENCOUNTER → 2020-06-19 13:48 | Outpatient (BNVA) | payer MEDICARE, MEDICAID, SELFPAY | PROVIDERS: PCP Internal Medicine; Visit Provider Surgery Vascular Surgery | DX: I73.9 Peripheral vascular disease, unspecified (principal) | CPT/HCPCS: 99212 ==

== ENCOUNTER 2020-07-08 09:50 | Outpatient (REF) | payer MEDICARE, MEDICAID, SELFPAY ==
--- NOTE | 2020-07-08 | US_ITS ---
EXAMINATION: COLOR-FLOW DUPLEX IMAGING OF THE UNILATERAL RIGHT LOWER EXTREMITY ARTERIAL SYSTEM. VELOCITY MEASUREMENTS THROUGHOUT THE FEMORAL ARTERIES WITH ANKLE-BRACHIAL INDICES. CLINICAL INFORMATION: This is a 55-year-old male with right leg peripheral arterial disease. Interventional Radiologist: Jayme Dalal M.D., F.S.I.R., F.A.C.R. RIGHT FEMORAL RUNOFF VELOCITIES: The right common femoral artery measures 108 cm/s and triphasic. The right profunda femoral artery is 59 cm/s and is biphasic. Right proximal superficial femoral artery measures 117 cm/s and triphasic. Mid superficial femoral artery is 102 cm/s and triphasic. Distal right superficial femoral artery measures 139 cm/s and is triphasic. Right popliteal velocity measures 116 cm/s and is monophasic. The posterior tibial artery velocity measures 52 cm/s and was monophasic. The right ankle brachial index is 1.25. US/US MIESHA complete IMPRESSION: 1. Although there is scattered mild atherosclerotic disease present, there is no hemodynamically significant stenosis within the right lower extremity runoff
--- NOTE | 2020-07-08 09:56 | US_ITS ---
EXAMINATION: COLOR-FLOW DUPLEX IMAGING OF THE UNILATERAL RIGHT LOWER EXTREMITY ARTERIAL SYSTEM. VELOCITY MEASUREMENTS THROUGHOUT THE FEMORAL ARTERIES WITH ANKLE-BRACHIAL INDICES. CLINICAL INFORMATION: This is a 55-year-old male with right leg peripheral arterial disease. Interventional Radiologist: Jayme Dalal M.D., F.S.I.R., F.A.C.R. RIGHT FEMORAL RUNOFF VELOCITIES: The right common femoral artery measures 108 cm/s and triphasic. The right profunda femoral artery is 59 cm/s and is biphasic. Right proximal superficial femoral artery measures 117 cm/s and triphasic. Mid superficial femoral artery is 102 cm/s and triphasic. Distal right superficial femoral artery measures 139 cm/s and is triphasic. Right popliteal velocity measures 116 cm/s and is monophasic. The posterior tibial artery velocity measures 52 cm/s and was monophasic. The right ankle brachial index is 1.25. US/US arterial duplex LE RT IMPRESSION: 1. Although there is scattered mild atherosclerotic disease present, there is no hemodynamically significant stenosis within the right lower extremity runoff
== END 2020-07-08 09:51 | disposition home or self-care (01) ==
LOC: HO.US 09:50
PROVIDERS: Visit Provider Surgery Vascular Surgery
DX: I73.9 Peripheral vascular disease, unspecified (principal)
CPT/HCPCS: 93923; 93926

== ENCOUNTER 2020-07-15 10:10 | Outpatient (REF) | payer MEDICARE, MEDICAID, SELFPAY ==
[2020-07-15 15:26] LABS: Anion Gap 16 (12-20); Blood Urea Nitrogen 47 mg/dL (9-16); Calcium 8.4 mg/dL (8.4-10.2); Carbon Dioxide 18 mmol/L (22-29); Chloride 101 mmol/L (96-108); Estimated Glomerular Filt Rate 30; Glucose Random 490 mg/dL (60-115); Phosphorus 3.2 mg/dL (2.7-4.5); Sodium 129 mmol/L (135-145)
[2020-07-15 16:15] LABS: Renal w Reflex Lab Use Only Order verified
== END 2020-07-15 10:11 | disposition home or self-care (01) ==
LOC: HO.HMGCLDS 10:10
PROVIDERS: PCP Internal Medicine; Visit Provider Internal Medicine Nephrology
DX: I12.9 Hypertensive chronic kidney disease with stage 1 through stage 4 chronic kidney disease, or unspecified chronic kidney disease (principal); N18.30 Chronic kidney disease, stage 3 unspecified; N20.0 Calculus of kidney
CPT/HCPCS: 36415; 80051; 82310; 82550; 82565; 82947; 84100; 84520

== ENCOUNTER → 2020-07-22 14:32 | Outpatient (BNVA) | payer MEDICARE, MEDICAID, SELFPAY | PROVIDERS: PCP Internal Medicine; Visit Provider Surgery Vascular Surgery | DX: I89.0 Lymphedema, not elsewhere classified (principal) | CPT/HCPCS: 99212 ==

== ENCOUNTER 2020-09-30 13:26 | Outpatient (REF) | payer MEDICARE, MEDICAID, SELFPAY ==
[2020-09-30 16:54] LABS: Alanine Aminotransferase 30 U/L (0-40); Albumin Level 3.4 g/dL (3.5-5.0); Alkaline Phosphatase 96 U/L (39-117); Anion Gap 15 (12-20); Aspartate Amino Transferase 16 U/L (5-37); Bilirubin Total 0.4 mg/dL (0.0-1.0); Blood Urea Nitrogen 47 mg/dL (9-16); Calcium 8.4 mg/dL (8.4-10.2); Carbon Dioxide 23 mmol/L (22-29); Chloride 106 mmol/L (96-108); Estimated Glomerular Filt Rate 35; Glucose Random 158 mg/dL (60-115); Potassium 4.7 mmol/L (3.3-5.1); Sodium 139 mmol/L (135-145); Total Protein 6.5 g/dL (6.5-8.0)
== END 2020-09-30 13:27 | disposition home or self-care (01) ==
LOC: CF 13:26
PROVIDERS: PCP Internal Medicine; Visit Provider Internal Medicine Endocrinology, Diabetes & Metabolism
DX: I89.0 Lymphedema, not elsewhere classified (principal); E11.21 Type 2 diabetes mellitus with diabetic nephropathy; E11.65 Type 2 diabetes mellitus with hyperglycemia; E11.40 Type 2 diabetes mellitus with diabetic neuropathy, unspecified; K31.84 Gastroparesis; E11.3299 Type 2 diabetes mellitus with mild nonproliferative diabetic retinopathy without macular edema, unspecified eye; E11.43 Type 2 diabetes mellitus with diabetic autonomic (poly)neuropathy; M79.89 Other specified soft tissue disorders; E78.00 Pure hypercholesterolemia, unspecified; I10 Essential (primary) hypertension; E04.2 Nontoxic multinodular goiter; E66.01 Morbid (severe) obesity due to excess calories; Z89.512 Acquired absence of left leg below knee; Z79.4 Long term (current) use of insulin
CPT/HCPCS: 36415; 80053; 82947; 99212

== ENCOUNTER 2020-09-30 14:18 | Outpatient (REF) | payer MEDICARE, MEDICAID, SELFPAY | END 2020-09-30 14:19 | disposition home or self-care (01) | LOC: HO.HMGCLDS 14:18 | PROVIDERS: PCP Internal Medicine; Visit Provider Internal Medicine Endocrinology, Diabetes & Metabolism | DX: Z13.89 Encounter for screening for other disorder (principal) ==

== ENCOUNTER 2020-10-24 09:39 | Outpatient (REF) | payer MEDICARE, MEDICAID, SELFPAY ==
[2020-10-24 11:46] LABS: Hematocrit 38.2 % (42-52); Hemoglobin 12.9 g/dl (14.0-18.0); Mean Corpuscular HGB Conc 33.8 g/dl (31.0-36.0); Mean Corpuscular Hemoglobin 28.7 pg (27.0-33.0); Mean Corpuscular Volume 84.9 fL (80-98); Mean Platelet Volume 11.7 fL (9.4-12.4); Platelet Count 259 X10*3/uL (160-400); Red Cell Distribution Width 14.6 % (11.0-16.0); White Blood Count 11.3 X10*3/uL (4.8-10.8)
[2020-10-24 12:51] LABS: Anion Gap 16 (12-20); Blood Urea Nitrogen 36 mg/dL (9-16); Calcium 8.5 mg/dL (8.4-10.2); Carbon Dioxide 19 mmol/L (22-29); Chloride 108 mmol/L (96-108); Estimated Glomerular Filt Rate 34; Potassium 4.8 mmol/L (3.3-5.1); Sodium 138 mmol/L (135-145)
== END 2020-10-24 09:40 | disposition home or self-care (01) ==
LOC: HO.HMGCLDS 09:39
PROVIDERS: PCP Internal Medicine; Visit Provider Internal Medicine Nephrology
DX: I12.9 Hypertensive chronic kidney disease with stage 1 through stage 4 chronic kidney disease, or unspecified chronic kidney disease (principal); N20.0 Calculus of kidney; E87.5 Hyperkalemia; N18.31 Chronic kidney disease, stage 3a
CPT/HCPCS: 36415; 80051; 82310; 82565; 84520; 85027

== ENCOUNTER 2020-11-14 10:20 | Outpatient (REF) | payer MEDICARE, MEDICAID, SELFPAY ==
--- NOTE | ~2020-11-14 | XR_ITS ---
EXAMINATION: XR HIP, LEFT CLINICAL INFORMATION: Unilateral primary osteoarthritis left hip. COMPARISON: None TECHNIQUE: Two views of the left hip. FINDINGS: There is minimal loss of left hip joint space. No bony erosive changes, fracture or dislocation. The soft tissues are normal. XR/XR hip LT min 2V IMPRESSION: Loss of left hip joint space likely early degenerative changes. No acute fracture or dislocation seen.
== END 2020-11-14 10:21 | disposition home or self-care (01) ==
LOC: HO.HMGCX 10:20
PROVIDERS: PCP Internal Medicine; Visit Provider Internal Medicine
DX: M16.12 Unilateral primary osteoarthritis, left hip (principal)
CPT/HCPCS: 73502

== ENCOUNTER 2020-12-23 10:15 | Outpatient (REF) | payer MEDICARE, MEDICAID, SELFPAY ==
--- NOTE | ~2020-12-23 | XR_ITS ---
EXAMINATION: XR KNEE, LEFT CLINICAL INFORMATION: Infection of the amputation stump COMPARISON: None TECHNIQUE: Four views of the left knee. FINDINGS: There is a below knee amputation. No bone destruction or periosteal reaction or osteopenia suggest osteomyelitis is seen. There is overlying soft tissue swelling. No air in the soft tissues is seen. There is evidence of atherosclerotic disease. The joint spaces are unremarkable. There is a small joint effusion. XR/XR knee LT 4V IMPRESSION: Below knee amputation. No x-ray evidence of osteomyelitis.
== END 2020-12-23 10:16 | disposition home or self-care (01) ==
LOC: HO.HMGCX 10:15
PROVIDERS: PCP Internal Medicine; Visit Provider Nurse Practitioner Family
DX: T87.44 Infection of amputation stump, left lower extremity (principal)
CPT/HCPCS: 73564

== ENCOUNTER → 2020-12-30 13:22 | Outpatient (BNVA) | payer MEDICARE, MEDICAID, SELFPAY | PROVIDERS: PCP Internal Medicine; Visit Provider Internal Medicine Endocrinology, Diabetes & Metabolism | DX: E11.65 Type 2 diabetes mellitus with hyperglycemia (principal); E11.21 Type 2 diabetes mellitus with diabetic nephropathy; E11.42 Type 2 diabetes mellitus with diabetic polyneuropathy; E11.3299 Type 2 diabetes mellitus with mild nonproliferative diabetic retinopathy without macular edema, unspecified eye; E11.43 Type 2 diabetes mellitus with diabetic autonomic (poly)neuropathy; E04.2 Nontoxic multinodular goiter; E66.01 Morbid (severe) obesity due to excess calories; K31.84 Gastroparesis; Z79.4 Long term (current) use of insulin; Z68.42 Body mass index [BMI] 45.0-49.9, adult | CPT/HCPCS: 82947; 99212 ==

== ENCOUNTER 2021-01-07 08:42 | Outpatient (REF) | payer MEDICARE, MEDICAID, SELFPAY ==
[2021-01-07 12:20] LABS: Alanine Aminotransferase 16 U/L (0-40); Aspartate Amino Transferase 15 U/L (5-37); Cholesterol 154 mg/dL; HDL Cholesterol 42 mg/dL; LDL Cholesterol Calculated 86 mg/dl; Triglycerides 130 mg/dL
[2021-01-07 12:23] LABS: Free T4 (Free Thyroxine) 0.88 ng/dL (0.71-1.85)
[2021-01-07 12:28] LABS: Thyroid Stimulating Hormone 2.56 uIU/mL (0.32-4.0)
== END 2021-01-07 08:43 | disposition home or self-care (01) ==
LOC: HO.HMGCLDS 08:42
PROVIDERS: PCP Internal Medicine; Visit Provider Internal Medicine Endocrinology, Diabetes & Metabolism
DX: E78.5 Hyperlipidemia, unspecified (principal); E04.2 Nontoxic multinodular goiter
CPT/HCPCS: 36415; 80061; 84439; 84443; 84450; 84460

== ENCOUNTER 2021-02-14 09:30 | Outpatient (REF) | payer MEDICARE, MEDICAID, SELFPAY ==
[2021-02-14 11:11] LABS: MANUAL DIFF FLAG NO
[2021-02-14 11:32] LABS: Basophils Percent Auto 0.3 % (0-2); Eosinophils Absolute Auto 0.1 X10*3/uL (0.0-0.4); Hematocrit 38.7 % (42-52); Hemoglobin 12.8 g/dl (14.0-18.0); Imm Gran Abs Auto 0.03 X10*3/uL (0.00-0.03); Imm Gran Pct Auto 0.4 % (0.0-0.4); Lymphocytes Absolute Auto 1.4 X10*3/uL (1.2-4.9); Lymphocytes Percent Auto 19.9 % (20-40); Mean Corpuscular HGB Conc 33.1 g/dl (31.0-36.0); Mean Corpuscular Volume 84.7 fL (80-98); Mean Platelet Volume 12.3 fL (9.4-12.4); Monocytes Absolute Auto 0.7 X10*3/uL (0.1-1.2); Monocytes Percent Auto 9.7 % (2-11); Neutrophils Absolute Auto 4.7 X10*3/uL (2.0-8.3); Neutrophils Percent Auto 67.7 % (45-73); Platelet Count 228 X10*3/uL (160-400); Red Blood Count 4.57 X10*6/uL (4.60-5.80)
[2021-02-14 12:08] LABS: Alanine Aminotransferase 28 U/L (0-40); Anion Gap 18 (12-20); Aspartate Amino Transferase 13 U/L (5-37); Blood Urea Nitrogen 40 mg/dL (9-16); Calcium 9.2 mg/dL (8.4-10.2); Carbon Dioxide 25 mmol/L (22-29); Chloride 104 mmol/L (96-108); Cholesterol 142 mg/dL; Estimated Glomerular Filt Rate 24; Glucose Fasting 246 mg/dL (60-99); HDL Cholesterol 38 mg/dL; LDL Cholesterol Calculated 76 mg/dl; Potassium 4.5 mmol/L (3.3-5.1); Sodium 142 mmol/L (135-145); Triglycerides 141 mg/dL
[2021-02-14 12:09] LABS: Estimated Average Glucose 154 mg/dL
== END 2021-02-14 09:31 | disposition home or self-care (01) ==
LOC: HO.HMGCLDS 09:30
PROVIDERS: PCP Internal Medicine; Visit Provider Internal Medicine
DX: E11.21 Type 2 diabetes mellitus with diabetic nephropathy (principal); E11.43 Type 2 diabetes mellitus with diabetic autonomic (poly)neuropathy; K31.84 Gastroparesis; Z79.4 Long term (current) use of insulin; E78.5 Hyperlipidemia, unspecified; E66.01 Morbid (severe) obesity due to excess calories; I10 Essential (primary) hypertension
CPT/HCPCS: 36415; 80048; 80061; 83036; 84450; 84460; 85025

== ENCOUNTER → 2021-04-27 08:47 | Outpatient (BNVA) | payer MEDICARE, MEDICAID, SELFPAY | PROVIDERS: PCP Internal Medicine; Visit Provider Orthopaedic Surgery | DX: M54.16 Radiculopathy, lumbar region (principal); E66.01 Morbid (severe) obesity due to excess calories; Z89.512 Acquired absence of left leg below knee | CPT/HCPCS: 99202 ==

== ENCOUNTER 2021-05-06 13:00 | Outpatient (RCR) | payer MEDICARE, MEDICAID, SELFPAY ==
--- NOTE | 2021-04-30 19:37 | MHC.PT.EP ---
[facility] [place] [facility] [place] [facility] [place] Office [address] Dennis Hadley [address] [phone] F: [phone] F: [phone] F: [phone] F: [phone] Physical Therapy Plan of Care Date of Evaluation: Date of Surgery: Diagnosis: Radiculopathy, lumbar. Assessment: Pt is a 56 y/o male with L BKA referred to PT for lumbar radiculopathy resulting in decreased tolerance for lifting objects from the ground, ambulating, sitting even for short duration, negotiating stairs, and performing heavy HH chores secondary to decreased L LE strength, decreased core strength, L sided lumbar radicular symptoms, body habitus, and pain. Pt is deemed an appropriate candidate to receive skilled PT in order to address his physical limitations to improve his functional ability. Frequency and Duration: The patient will be seen 2 x / wk x 5 wks. Short Term Goals: In 3 weeks: abolish LE radicular Sx. initiate HEP. Usp Goals: I with HEP. In 5 weeks: Pt will report his pain is mild and comes and goes; initial: the pain is severe and comes and goes (Alec). In 5 weeks: Pt will be able to sit as long as he'd like with managed Sx; initial: < 30 min. Treatment Plan: Modalities to reduce pain, spasms and effusion. Manual therapy to restore motion and function. Therapeutic exercise to improve strength and flexibility. Neuromuscular re-education for posture and balance. Therapeutic activities to return to functional activities of daily living. Electronically signed by: Virgil Santillan PT. Please sign and return to therapist. Thank you for your referral.
--- NOTE | 2021-11-02 11:59 | MHC.PT.DC ---
[facility] [place] [facility] [place] Office [address] Dennis [place] [address] [phone] F: [phone] F: [phone] F: [phone] F: [phone] Physical Therapy Discharge Report Diagnosis: Radiculopathy, lumbar. Date of Surgery: Date of Evaluation: 04/30/21 Date of Discharge: 06/11/21 Treatments to Date: 4 Cancellations to Date: No Shows to Date: 1 Discharge Status: Patient Elected to Stop Visit Non-compliance Discharge Summary: 06/01: no showed Good overall tanner for activities. no adverse effects. progressed to squatting and core strengthening. Pt will modify sitting on sofa to decrease sacral sitting. Electronically signed by: Moustapha Ewing, PT Please sign and return to therapist. Thank you for your referral.
== END 2021-11-02 12:00 | disposition home or self-care (01) ==
LOC: HO.PTCHIC 13:00
PROVIDERS: PCP Internal Medicine; Visit Provider Orthopaedic Surgery
DX: M54.16 Radiculopathy, lumbar region (principal); E66.01 Morbid (severe) obesity due to excess calories; Z89.512 Acquired absence of left leg below knee
CPT/HCPCS: 97014; 97110; 97140; 97162

== ENCOUNTER → 2021-06-12 14:40 | Outpatient (BNVA) | payer MEDICARE, MEDICAID, SELFPAY | PROVIDERS: PCP Internal Medicine; Visit Provider Nurse Practitioner Family | DX: M54.16 Radiculopathy, lumbar region (principal); M25.562 Pain in left knee; M16.12 Unilateral primary osteoarthritis, left hip; M53.3 Sacrococcygeal disorders, not elsewhere classified; G54.6 Phantom limb syndrome with pain; Z89.512 Acquired absence of left leg below knee | CPT/HCPCS: 99202 ==

== ENCOUNTER 2021-06-22 10:02 | Outpatient (REF) | payer MEDICARE, MEDICAID, SELFPAY ==
--- NOTE | ~2021-06-22 | MR_ITS ---
MR LUMBAR SPINE WITHOUT CONTRAST CLINICAL INFORMATION: Lumbar region radiculopathy. Low back pain. COMPARISON: None available. TECHNIQUE: MRI of the lumbar spine was obtained using routine sequences without contrast. FINDINGS: There are T2 signal changes involving the L2 and L3 vertebral bodies as well as the L2-L3 intervertebral disc eccentric to the right side with associated opposing endplate erosion, findings most concerning for L2-L3 osteomyelitis discitis. There is myositis within the adjacent right psoas muscle without a definite discrete drainable abscess. No epidural abscess. Grade 1 retrolisthesis of L2 on L3. Multilevel endplate osteophytes. Conus terminates at the L1-L2 level. Small left renal cysts. T12-L1: There is a right paracentral disc protrusion that mildly indents the ventral thecal sac. L1-L2: Far right lateral disc bulging disc osteophyte complex. There is a small superiorly migrating left paracentral disc extrusion that mildly indents the left ventral thecal sac. L2-L3: There is a inferiorly migrating central disc extrusion that compresses the traversing L3 nerve roots within the L3 lateral recesses bilaterally. There is moderate bilateral facet arthropathy and ligamentum flavum thickening. Findings in concert result in moderate to severe central canal stenosis. Large right lateral disc osteophyte protrusion compresses the extraforaminal right L2 nerve root. L3-L4: Diffuse annular disc bulge and severe bilateral facet arthropathy and ligamentum flavum thickening. Prominent dorsal epidural fat. Moderate central canal stenosis. Moderate bilateral foraminal stenosis with mild mass effect on the exiting L3 nerve roots bilaterally L4-L5: Diffuse annular disc bulges in part disc osteophyte and bilateral hypertrophic facet arthropathy and ligamentum flavum thickening. Moderate bilateral foraminal stenosis with mass effect on the exiting L4 nerve roots bilaterally. No central canal stenosis. L5-S1: Diffuse annular disc bulge and severe bilateral facet arthropathy. Disc osteophyte and facet arthropathy result in mild bilateral foraminal encroachment. MR/MR lumbar spine wo con IMPRESSION: - There are T2 signal changes involving the L2 and L3 vertebral bodies as well as the L2-L3 intervertebral disc eccentric to the right side with associated opposing endplate erosion, findings most concerning for L2-L3 osteomyelitis discitis. There is myositis within the adjacent right psoas muscle without a definite discrete drainable abscess. No definite significant epidural abscess on this noncontrast study. - At L2-L3, an inferiorly migrating central disc extrusion the traversing L3 nerve roots within the L3 lateral recesses bilaterally and along with additional multifactorial degenerative changes result in moderate to severe central canal stenosis. A right lateral disc osteophyte protrusion at L2-L3 compresses the extra foraminal right L2 nerve root. - At L3-L4, multifactorial degenerative changes result in moderate central canal stenosis and moderate bilateral foraminal stenosis with mild mass effect on the exiting L3 nerve roots bilaterally. - At L4-L5, multifactorial degenerative changes result in moderate bilateral foraminal stenosis with mass effect on the exiting L4 nerve roots bilaterally. Covering provider paged with these findings at 3:31 PM on 06/29/2021.
== END 2021-06-22 10:03 | disposition home or self-care (01) ==
LOC: HO.MRI 10:02
PROVIDERS: Visit Provider Nurse Practitioner Family
DX: M54.16 Radiculopathy, lumbar region (principal)
CPT/HCPCS: 72148

== ENCOUNTER 2021-06-30 06:09 | Outpatient (REF) | payer MEDICARE, MEDICAID, SELFPAY | END 2021-06-30 06:10 | disposition home or self-care (01) | LOC: HO.RADIR 06:09 | PROVIDERS: Visit Provider Anesthesiology | DX: Z13.89 Encounter for screening for other disorder (principal) | CPT/HCPCS: J3300 ==

== ENCOUNTER → 2021-07-03 14:55 | Outpatient (BNVA) | payer MEDICARE, MEDICAID, SELFPAY | PROVIDERS: PCP Internal Medicine; Visit Provider Internal Medicine | DX: Z13.89 Encounter for screening for other disorder (principal) | CPT/HCPCS: 99202 ==

== ENCOUNTER 2021-07-06 08:17 | Inpatient (IN) | payer MEDICARE, MEDICAID, SELFPAY ==
--- NOTE | ~2021-07-06 | IR_ITS ---
PROCEDURE: IR INSERTION OF TUNNEL CATHETER IR ULTRASOUND-GUIDED VENOUS ACCESS CLINICAL INFORMATION: Needs Pro-Line central venous catheter for IV antibiotics. COMPARISON: None TECHNIQUE: Ultrasound and fluoroscopic-guided placement of right internal jugular central venous catheter which is a tunneled Pro-Line. All elements of maximal sterile barrier technique followed including use of cap, mask, sterile gown, sterile gloves, a sterile full body drape and hand hygiene. Also followed skin preparation with 2% chlorhexidine for cutaneous antisepsis, and sterile ultrasound preparation with sterile gel and probe cover when applicable. FINDINGS: Ultrasound of the neck was performed demonstrating that the right jugular vein is patent for access. Informed consent was obtained from the patient prior to the procedure. During this process, the procedure and potential alternatives were explained, along with the intended outcome and benefits. The risks of the procedure, as well as the risk of not doing the procedure, were discussed. The patient was given the opportunity to ask questions regarding the procedure and appeared competent to make medical decisions. A signed consent form which documents this discussion was placed in the medical record. Using sterile technique and ultrasound guidance, a needle was placed into the right jugular vein and 0.018 inch guidewire directed down into the right atrium. Over the wire, a 5-[place] introducer was placed. Attention was then made to creating a tunnel about the superior anterior right chest wall up to the puncture site. A 5-[place] Pro-Line catheter was then tunneled to the internal jugular puncture site. A peel-away sheath was placed over the wire and through the peel-away sheath, the 5-[place] catheter was placed with its tip at the cavoatrial junction. The internal jugular skin puncture site was then closed with tissue adhesive. A StatLock was placed about the right upper chest wall with an antimicrobial disc placed at the exit site. Patient tolerated procedure without difficulty. IR/IR cvc insert central tunnel IMPRESSION: Placement of tunneled Pro-Line central venous catheter via the right internal jugular approach. Catheter is 31 cm in length. Fluoroscopy time: 0.9 minutes.
--- NOTE | ~2021-07-06 | CT_ITS ---
EXAMINATION: CT LUMBAR SPINE WITHOUT CONTRAST CLINICAL INFORMATION: Osteomyelitis on MRI. COMPARISON: None TECHNIQUE: 2 mm thin axial and reformatted 2 mm thin sagittal and coronal images of lumbar spine were obtained. This CT examination was performed using dose optimization techniques as appropriate, variously including the following: *Automated exposure control *Adjustment of mA and/or kV according to patient size (this includes techniques or standardized protocols for targeted exams where dose is matched to indication/reason for exam; i.e. extremities or head) *Use of iterative reconstruction technique DLP; 1194 mGy-cm FINDINGS: There is normal lumbar lordosis. The vertebral alignment is normal. There is loss of L2-L3, L1-L2, T12/L1 and T11-T12 disc heights with moderate ventral spondylosis. There is no visible acute fracture, dislocation or subluxation seen. There is no evidence of disc bulge, herniation or spinal stenosis at any of the disc levels. There is posterior spondylosis/bulge complex at T12-L1 disc level without spinal canal stenosis. The neural foramina are patent bilaterally. The L1-L2, L2-L3, L3-L4 disc levels appear unremarkable. There is no spinal canal stenosis. Mild narrowing of L2-L3 and L3-L4 neural foramina is noted from facet joint and ligament flavum hypertrophy. At L4-L5 disc level there is minimal bulge without spinal canal stenosis. The neural foramina are patent bilaterally. At L5-S1 disc level there is no significant disc bulge, herniation or spinal canal stenosis. There is partial ankylosis of the right SI joint.. The prevertebral and paravertebral soft tissues appear unremarkable. CT/CT lumbar spine wo con IMPRESSION: There are endplate sclerosis at L2-L3 disc level. There are subchondral cystic changes along the endplates of L2 and L3 vertebra. There is no lytic process seen to suspect any active osteomyelitis at this time. There is no abnormal paravertebral soft tissue swelling seen. There are degenerative disc changes with vacuum disc phenomena at L3-L4 and L4-L5 disc levels with mild bilateral narrowing of neural foramina.
--- NOTE | ~2021-07-06 | IR_ITS ---
PROCEDURE: IR INSERTION OF TUNNEL CATHETER IR ULTRASOUND-GUIDED VENOUS ACCESS CLINICAL INFORMATION: Needs Pro-Line central venous catheter for IV antibiotics. COMPARISON: None TECHNIQUE: Ultrasound and fluoroscopic-guided placement of right internal jugular central venous catheter which is a tunneled Pro-Line. All elements of maximal sterile barrier technique followed including use of cap, mask, sterile gown, sterile gloves, a sterile full body drape and hand hygiene. Also followed skin preparation with 2% chlorhexidine for cutaneous antisepsis, and sterile ultrasound preparation with sterile gel and probe cover when applicable. FINDINGS: Ultrasound of the neck was performed demonstrating that the right jugular vein is patent for access. Informed consent was obtained from the patient prior to the procedure. During this process, the procedure and potential alternatives were explained, along with the intended outcome and benefits. The risks of the procedure, as well as the risk of not doing the procedure, were discussed. The patient was given the opportunity to ask questions regarding the procedure and appeared competent to make medical decisions. A signed consent form which documents this discussion was placed in the medical record. Using sterile technique and ultrasound guidance, a needle was placed into the right jugular vein and 0.018 inch guidewire directed down into the right atrium. Over the wire, a 5-[place] introducer was placed. Attention was then made to creating a tunnel about the superior anterior right chest wall up to the puncture site. A 5-[place] Pro-Line catheter was then tunneled to the internal jugular puncture site. A peel-away sheath was placed over the wire and through the peel-away sheath, the 5-[place] catheter was placed with its tip at the cavoatrial junction. The internal jugular skin puncture site was then closed with tissue adhesive. A StatLock was placed about the right upper chest wall with an antimicrobial disc placed at the exit site. Patient tolerated procedure without difficulty. IR/IR us guide venous access IMPRESSION: Placement of tunneled Pro-Line central venous catheter via the right internal jugular approach. Catheter is 31 cm in length. Fluoroscopy time: 0.9 minutes.
--- NOTE | ~2021-07-06 | MR_ITS ---
MR LUMBAR SPINE WITHOUT AND WITH CONTRAST CLINICAL INFORMATION: Osteomyelitis. COMPARISON: Lumbar spine MRI 06/22/[address] 07/06/2021. TECHNIQUE: MRI of the lumbar spine was obtained using routine sequences with and without contrast. Intravenous contrast: Gadavist 10 mL FINDINGS: Redemonstrated T2 signal changes and enhancement throughout the L2 and L3 vertebral bodies and the L2-L3 intervertebral disc in keeping with known ostium myelitis discitis at this level. The pattern of marrow signal abnormality is similar to the previous examination. Combination of disc herniation and enhancing epidural phlegmon anteriorly at L2-L3 results in similar moderate to severe central canal stenosis and compression of the traversing L3 nerve roots bilaterally at the L2-L3 level. Similar enhancing T2 signal changes within the right paraspinal musculature at and below the L2-L3 level suggesting myositis. No discrete drainable psoas abscess is identified. Opposing endplate erosion at L2-L3 is again noted. The conus terminates at the L1 level. Bilateral perinephric stranding. T12-L1: There is a right paracentral disc protrusion that mildly indents the ventral thecal sac. Findings unchanged L1-L2: Far right lateral disc bulging disc osteophyte complex. There is a small superiorly migrating left paracentral disc extrusion that mildly indents the left ventral thecal sac. Findings unchanged. L2-L3: There is a similar inferiorly migrating disc extrusion at L2-L3 that along with enhancing epidural phlegmon results in unchanged moderate to severe central canal stenosis and compression of the traversing L3 nerve roots bilaterally at L2-L3. Also at L2-L3, a right lateral disc osteophyte protrusion results in similar compression of the extraforaminal right L2 nerve root. L3-L4: Diffuse annular disc bulge and severe bilateral facet arthropathy and ligamentum flavum thickening. Prominent dorsal epidural fat. Moderate central canal stenosis. Moderate bilateral foraminal stenosis with mild mass effect on the exiting L3 nerve roots bilaterally. Findings unchanged. L4-L5: Diffuse annular disc bulges in part disc osteophyte and bilateral hypertrophic facet arthropathy and ligamentum flavum thickening. Moderate bilateral foraminal stenosis with mass effect on the exiting L4 nerve roots bilaterally. No central canal stenosis. Findings unchanged. L5-S1: Diffuse annular disc bulge and severe bilateral facet arthropathy. Disc osteophyte and facet arthropathy result in mild bilateral foraminal encroachment. Findings unchanged. MR/MR lumbar spine wo/w con IMPRESSION: - Redemonstrated osteomyelitis discitis at L2-L3 that appears similar to the 07/07/2021 lumbar spine MRI. There is a similar inferiorly migrating disc extrusion at L2-L3 that along with enhancing epidural phlegmon results in unchanged moderate to severe central canal stenosis and compression of the traversing L3 nerve roots bilaterally at L2-L3. Similar enhancing T2 signal changes within the right paraspinal musculature at and below the L2-L3 level suggesting myositis. No discrete drainable psoas abscess is identified. - Also at L2-L3, a right lateral disc osteophyte protrusion results in similar compression of the extraforaminal right L2 nerve root. Additional stable spondylitic changes throughout the lumbar spine as described.
[2021-07-06 08:33] VITALS: BP 167/94; PULSE 88; RESP 19; TEMP 36.6; O2SAT 99; BMI 39.7
[2021-07-06 12:56] LABS: COVID-19 Test Negative (Negative)
[2021-07-06 13:07] LABS: MANUAL DIFF FLAG NO
[2021-07-06 13:09] LABS: Basophils Percent Auto 0.4 % (0-2); Eosinophils Absolute Auto 0.2 X10*3/uL (0.0-0.4); Eosinophils Percent Auto 2.2 % (0-4); Hematocrit 35.8 % (42.0-52.0); Imm Gran Abs Auto 0.03 X10*3/uL (0.00-0.03); Imm Gran Pct Auto 0.3 % (0.0-0.4); Lymphocytes Absolute Auto 1.9 X10*3/uL (1.2-4.9); Mean Corpuscular HGB Conc 33.5 g/dl (31.0-36.0); Mean Corpuscular Hemoglobin 29.5 pg (27.0-33.0); Mean Platelet Volume 10.2 fL (9.4-12.4); Monocytes Absolute Auto 0.8 X10*3/uL (0.1-1.2); Monocytes Percent Auto 9.1 % (2-11); Neutrophils Absolute Auto 6.3 x10*3/uL (2.0-8.3); Platelet Count 261 X10*3/uL (160-400); Red Blood Count 4.07 X10*6/uL (4.60-5.80); Red Cell Distribution Width 14.4 % (11.0-16.0); White Blood Count 9.3 X10*3/uL (4.8-10.8)
[2021-07-06 13:27] LABS: Lactic Acid 1.5 mmol/L (0.5-2.0)
[2021-07-06 13:32] LABS: Alanine Aminotransferase 13 U/L (0-40); Albumin Level 3.8 g/dL (3.5-5.0); Alkaline Phosphatase 94 U/L (39-117); Anion Gap 12 (12-20); Aspartate Amino Transferase 10 U/L (5-37); Bilirubin Direct 0.2 mg/dL (0.0-0.5); Bilirubin Total 0.5 mg/dL (0.0-1.0); Blood Urea Nitrogen 53 mg/dL (9-16); C Reactive Protein 2.08 mg/dL (< or = 0.50); Calcium 9.4 mg/dL (8.4-10.2); Carbon Dioxide 24 mmol/L (22-29); Chloride 107 mmol/L (96-108); Creatinine Clr Calc Pharmacy 44.3; Estimated Glomerular Filt Rate 26; Glucose Random 86 mg/dL (60-115); Potassium 4.5 mmol/L (3.3-5.1); Sodium 138 mmol/L (135-145); Total Protein 7.1 g/dL (6.5-8.0)
[2021-07-06 14:00] LABS: Erythrocyte Sedimentation Rate 87 MM/HR (0-15)
[2021-07-06 19:57] VITALS: BP 169/89; PULSE 95; RESP 20; TEMP 35.9; O2SAT 99
[2021-07-06 20:00] VITALS: BP 188/111; PULSE 96; RESP 18; TEMP 36.5; O2SAT 98
--- NOTE | 2021-07-06 20:38 | ED_ITS ---
HPI - General Adult General Chief complaint: General Medical Stated complaint: back infection PCP referral Time Seen by Provider: 07/06/21 11:06 Source: patient Mode of arrival: ambulatory Limitations: no limitations History of Present Illness HPI narrative: 56-year-old male presents for osteomyelitis of the spine which was discovered on MRI. MRI was taken on 06/22/2021. Presents to the emergency department per Dr. Garrido referral. Onset (ago): week(s) Location: back Radiation: non-radiation Severity: moderate Quality: aching Pain Consistency: constant Relieving factors: none Exacerbating factors: movement Associated symptoms: denies other symptoms Treatments prior to arrival: none Related Data Home Medications Medication Instructions Recorded Confirmed allopurinol 100 mg tablet 100 mg PO DAILY 04/29/20 06/14/21 blood sugar diagnostic #10 ea 04/29/20 06/14/21 ferrous sulfate 324 mg (65 mg 324 mg PO DAILY 10/08/20 06/14/21 iron) tablet,delayed release cholecalciferol (vitamin D3) 50 50 mcg PO DAILY 02/16/21 06/14/21 mcg (2,000 unit) capsule insulin lispro 200 unit/mL (3 mL) unit SUBCUT 04/16/21 06/14/21 subcutaneous pen (Humalog KwikPen U-200 Insulin) Previous Rx's Medication Instructions Recorded power wheellchair #1 ea 06/11/20 gabapentin 600 mg tablet 1,200 mg PO BID #60 tab 07/08/20 amlodipine 10 mg tablet 10 mg PO DAILY #30 tab 01/26/21 atorvastatin 10 mg tablet 10 mg PO DAILY #30 tab 01/26/21 omeprazole 40 mg capsule,delayed 40 mg PO QAM #30 cap 01/26/21 release sildenafil 100 mg tablet 100 mg PO DAILY PRN #10 tab 03/03/21 flash glucose sensor (FreeStyle #2 ea 04/24/21 Juanito 14 Day Sensor) oxycodone-acetaminophen 5 mg-325 1 tab PO .q12 PRN #20 tab 05/29/21 mg tablet (Percocet) tizanidine 2 mg tablet 2 mg PO TID PRN #90 tab 06/12/21 metoclopramide HCl 5 mg tablet 5 mg PO DAILY #30 tab 06/22/21 Allergies Allergy/AdvReac Type Severity Reaction Status Date / Time cephalexin [CEPHALEXIN] Allergy Intermediate UNABLE TO Verified 06/14/21 19:56 MOVE ENTIRE BODY, chills and fever, nausea, chills, fever, and nausea vancomycin [VANCOMYCIN] Allergy Intermediate ITCHY,HIVES, Verified 06/14/21 19: 56 nausea and vomiting metformin [METFORMIN] AdvReac Intermediate ADVISED Verified 06/14/21 19:56 NOT TO TAKE ANYMORE,SHAKEY,STOMACH PAINS, stomach upset, stomach upset Review of Systems Review of Systems: Constitutional: No Fever, No Chills ENT/Mouth: No Ear Pain, No Hoarseness, No sore throat Eyes: No Eye Pain, No Swelling, No Redness, No Foreign Body Cardiovascular: No Chest Pain, No SOB Respiratory: No Cough, No Dyspnea Gastrointestinal: No Nausea, No Vomiting, No Diarrhea, No abdominal Pain Genitourinary: No Dysuria, No Hematuria Musculoskeletal: positive back pain, No Myalgias, No Joint Swelling Skin: No Skin lacerations, No rash Neuro: No Weakness, No Numbness, No Paresthesias, No Loss of Consciousness, No Dizziness, No Headache Psych: No Anxiety/Panic, No Depression Heme/Lymph: no easy bruising, no Lymphadenopathy Endocrine: No Polyuria, No Polydipsia Yes all other systems are reviewed and are negative PMFSH Past Medical History Attestation statement: The following information was validated with the patient. Source: old records reviewed Medical History Celiac disease Diabetes mellitus with diabetic nephropathy, with long-term current use of insulin Diabetes mellitus with retinopathy Diabetic gastroparesis associated with type 2 diabetes mellitus Diabetic neuropathy associated with type 2 diabetes mellitus Dyslipidemia Gastroparesis Hypercholesterolemia Hypertension Major depressive disorder Morbid obesity Non-toxic multinodular goiter Peripheral vascular disease Renal calculi Surgical History History of below-knee amputation (~06/28/17) History of esophagogastroduodenoscopy (EGD) (~09/26/13) History of lobectomy of thyroid (~03/25/15) History of repair of ACL (~2004) History of skin graft (~1993) Hx of colonoscopy S/P laparoscopic sleeve gastrectomy Family History Family History Father Hypertension Diabetes Mother No problems noted. Sister Mental health disorder Social History Social History Housing: House Alcohol intake: never Patient Tobacco Use Status: Never used Tobacco Use of substances other than those prescribed or required for medical reasons: No Advance Directives: No Advance Directives Information Provided: No service: No Current occupational status: disabled Physical Exam Vital Signs: Vital Signs: Last Vital Signs Temp 97.7 F 07/06/21 22:00 Pulse 94 07/06/21 22:00 Resp 18 07/06/21 22:00 BP 145/90 H 07/06/21 22:00 Pulse Ox 94 07/06/21 22:00 BMI result Body Mass Index 39.7 Appearance: Alert. Oriented X3. No acute distress. Eyes: Pupils equal, round and reactive to light. EOMI. Sclera nonicteric. ENT: Pharynx normal. Moist mucous membranes. Neck: Normal inspection. Neck supple. No JVD. CVS: Normal heart rate and rhythm. Pulses normal. Respiratory: No respiratory distress. Breath sounds normal. Abdomen: Soft and nontender. Skin: Skin warm and dry. Normal skin color. Normal skin turgor. Extremities: Left BKA with prosthesis. Gait balanced and coordinated. Neuro: No motor deficit. No sensory deficit. Cranial nerves 2-12 intact. Course Course Course Narrative: 56-year-old male presents from Dr Maldonado office for MRI that indicated osteomyelitis of the spine on 06/22/2021. Presents for IV antibiotics and admission. He does not report any fevers, chills, dizziness, loss of sensation to lower extremities, bowel and bladder incontinence, or any other concerning symptoms. He is neurovascularly intact, gait well-balanced well coordinated, no indication of cauda equina. Patient appears stable and nontoxic. Vital signs indicate hypertension however afebrile with a normal heart rate even unlabored respirations and O2 sat 99% on room air. Patient has been in the waiting room for 12 hours. Labs were drawn while he was in the waiting room. H&H indicates levels of 12.0/35.8 which is consistent with prior values, BUN elevated at 53 which is at least 10 points higher than prior values, creatinine is 2.61 which is consistent with prior values. COVID test is neg ative. Will resuscitate with 1 L of fluid at this time for VERONICA. Morphine and oxycodone for pain management. 8:50 p.m. I did discuss this case in detail with Dr. Garrido, plan is for daptomycin and Levaquin with plan for admission with MRI for tomorrow. Discussion with hospitalist, would like CT scan to rule out abscess. 10:30 p.m. discussion with hospitalist, plan of care is to admit for oste omyelitis and VERONICA Consultations Consultation #1: Radhika Time: 20:50 Consultation #2: Justina Time: 21:00 Medical Decision Making Differential Diagnosis Differential Diagnosis: Osteomyelitis, abscess, sepsis Medical Records Medical records reviewed: Yes I reviewed the patient's medical records. Lab Data Lab results reviewed: Yes I reviewed the patient's lab results. Result diagrams: 07/06/21 12:57 07/06/21 12:56 Labs: Lab Results 07/06/21 07/06/21 07/06/21 Range/Units 12:30 12:56 12:57 WBC 9.3 (4.8-10.8) X10*3/uL RBC 4.07 L (4.60-5.80) X10*6/uL Hgb 12.0 L (14.0-18.0) g/dl Hct 35.8 L (42.0-52.0) % MCV 88.0 (80.0-98.0) fL MCH 29.5 (27.0-33.0) pg MCHC 33.5 (31.0-36.0) g/dl RDW 14.4 (11.0-16.0) % Plt Count 261 (160-400) X10*3/uL MPV 10.2 (9.4-12.4) fL Immature Gran % (Auto) 0.3 (0.0-0.4) % Neut % (Auto) 68.0 (45-73) % Lymph % (Auto) 20.0 (20-40) % Jefferson % (Auto) 9.1 (2-11) % Eos % (Auto) 2.2 (0-4) % Baso % (Auto) 0.4 (0-2) % Lymph # (Auto) 1.9 (1.2-4.9) X10*3/uL Jefferson # (Auto) 0.8 (0.1-1.2) X10*3/uL Eos # (Auto) 0.2 (0.0-0.4) X10*3/uL Baso # (Auto) 0.0 (0.0-0.2) X10*3/uL Abs Immat Gran (auto) 0.03 (0.00-0.03) X10*3/uL Absolute Neuts (auto) 6.3 (2.0-8.3) x10*3/uL Absolute Nucleated RBC 0.000 (0.0-0.012) X10*3/uL Nucleated RBC % (auto) 0.0 (0.0-0.2) /100WBC ESR (0-15) MM/HR Sodium 138 (135-145) mmol/L Potassium 4.5 (3.3-5.1) mmol/L Chloride 107 (96-108) mmol/L Carbon Dioxide 24 (22-29) mmol/L Anion Gap 12 (12-20) BUN 53 H (9-16) mg/dL Creatinine 2.61 H (0.5-1.4) mg/dL Estim Creat Clear Calc 44.3 Estimated GFR 26 Random Glucose 86 D (60-115) mg/dL Lactic Acid (0.5-2.0) mmol/L Calcium 9.4 (8.4-10.2) mg/dL Magnesium 2.0 (1.6-2.6) mg/dL Total Bilirubin 0.5 (0.0-1.0) mg/dL Direct Bilirubin 0.2 (0.0-0.5) mg/dL AST 10 (5-37) U/L ALT 13 (0-40) U/L Alkaline Phosphatase 94 (39-117) U/L C-Reactive Protein 2.08 H (< or = 0.50) mg/dL Total Protein 7.1 (6.5-8.0) g/dL Albumin 3.8 (3.5-5.0) g/dL COVID-19 (JOSHUA) Negative (Negative) COVID-19 Clin Com See Note 07/06/21 07/06/21 Range/Units 12:57 12:57 WBC (4.8-10.8) X10*3/uL RBC (4.60-5.80) X10*6/uL Hgb (14.0-18.0) g/dl Hct (42.0-52.0) % MCV (80.0-98.0) fL MCH (27.0-33.0) pg MCHC (31.0-36.0) g/dl RDW (11.0-16.0) % Plt Count (160-400) X10*3/uL MPV (9.4-12.4) fL Immature Gran % (Auto) (0.0-0.4) % Neut % (Auto) (45-73) % Lymph % (Auto) (20-40) % Jefferson % (Auto) (2-11) % Eos % (Auto) (0-4) % Baso % (Auto) (0-2) % Lymph # (Auto) (1.2-4.9) X10*3/uL Jefferson # (Auto) (0.1-1.2) X10*3/uL Eos # (Auto) (0.0-0.4) X10*3/uL Baso # (Auto) (0.0-0.2) X10*3/uL Abs Immat Gran (auto) (0.00-0.03) X10*3/uL Absolute Neuts (auto) (2.0-8.3) x10*3/uL Absolute Nucleated RBC (0.0-0.012) X10*3/uL Nucleated RBC % (auto) (0.0-0.2) /100WBC ESR 87 H (0-15) MM/HR Sodium (135-145) mmol/L Potassium (3.3-5.1) mmol/L Chloride (96-108) mmol/L Carbon Dioxide (22-29) mmol/L Anion Gap (12-20) BUN (9-16) mg/dL Creatinine (0.5-1.4) mg/dL Estim Creat Clear Calc Estimated GFR Random Glucose (60-115) mg/dL Lactic Acid 1.5 (0.5-2.0) mmol/L Calcium (8.4-10.2) mg/dL Magnesium (1.6-2.6) mg/dL Total Bilirubin (0.0-1.0) mg/dL Direct Bilirubin (0.0-0.5) mg/dL AST (5-37) U/L ALT (0-40) U/L Alkaline Phosphatase (39-117) U/L C-Reactive Protein (< or = 0.50) mg/dL Total Protein (6.5-8.0) g/dL Albumin (3.5-5.0) g/dL COVID-19 (JOSHUA) (Negative) COVID-19 Clin Com Imaging Data CT lumbar spine: Attestation: I personally reviewed and interpreted this imaging study as follows: Radiologist's impression: EXAMINATION: CT LUMBAR SPINE WITHOUT CONTRAST CLINICAL INFORMATION: Osteomyelitis on MRI.? COMPARISON: None? TECHNIQUE: 2 mm thin axial and reformatted 2 mm thin sagittal and coronal images of lumbar spine were obtained. This CT examination was performed using dose optimization techniques as appropriate, variously including the following: *Automated exposure control *Adjustment of mA and/or kV according to patient size (this includes techniques or standardized protocols for targeted exams where dose is matched to indication/reason for exam; i.e. extremities or head) *Use of iterative reconstruction technique DLP; 1194 mGy-cm FINDINGS: There is normal lumbar lordosis. The vertebral alignment is normal. There is loss of L2-L3, L1-L2, T12/L1 and T11-T12 disc heights with moderate ventral spondylosis. There is no visible acute fracture, dislocation or subluxation seen. There is no evidence of disc bulge, herniation or spinal stenosis at any of the disc levels. There is posterior spondylosis/bulge complex at T12-L1 disc level without spinal canal stenosis. The neural foramina are patent bilaterally. The L1-L2, L2-L3, L3-L4 disc levels appear unremarkable. There is no spinal canal stenosis. Mild narrowing of L2-L3 and L3-L4 neural foramina is noted from facet joint and ligament flavum hypertrophy. At L4-L5 disc level there is minimal bulge without spinal canal stenosis. The neural foramina are patent bilaterally. At L5-S1 disc level there is no significant disc bulge, herniation or spinal canal stenosis. There is partial ankylosis of the right SI joint.. The prevertebral and paravertebral soft tissues appear unremarkable. CT/CT lumbar spine wo con IMPRESSION: There are endplate sclerosis at L2-L3 disc level. There are subchondral cystic changes along the endplates of L2 and L3 vertebra. There is no lytic process seen to suspect any active osteomyelitis at this time. There is no abnormal paravertebral soft tissue swelling? seen. ? There are degenerative disc changes with vacuum disc phenomena at L3-L4 and L4-L5 disc levels with mild bilateral narrowing of neural foramina. MRI lumbar spine 06/22/2021: Attestation: I personally reviewed and interpreted this imaging study as follows: Radiologist's impression: MR LUMBAR SPINE WITHOUT CONTRAST CLINICAL INFORMATION: Lumbar region radiculopathy. Low back pain. COMPARISON: None available. TECHNIQUE: MRI of the lumbar spine was obtained using routine sequences without contrast. FINDINGS: There are T2 signal changes involving the L2 and L3 vertebral bodies as well as the L2-L3 intervertebral disc eccentric to the right side with associated opposing endplate erosion, findings most concerning for L2-L3 osteomyelitis discitis. There is myositis within the adjacent right psoas muscle without a definite discrete drainable abscess. No epidural abscess. Grade 1 retrolisthesis of L2 on L3. Multilevel endplate osteophytes. Conus terminates at the L1-L2 level. Small left renal cysts. T12-L1: There is a right paracentral disc protrusion that mildly indents the ventral thecal sac. L1-L2: Far right lateral disc bulging disc osteophyte complex. There is a small superiorly migrating left paracentral disc extrusion that mildly indents the left ventral thecal sac. L2-L3: There is a inferiorly migrating central disc extrusion that compresses the traversing L3 nerve roots within the L3 lateral recesses bilaterally. There is moderate bilateral facet arthropathy and ligamentum flavum thickening. Findings in concert result in moderate to severe central canal stenosis. Large right lateral disc osteophyte protrusion compresses the extraforaminal right L2 nerve root. L3-L4: Diffuse annular disc bulge and severe bilateral facet arthropathy and ligamentum flavum thickening. Prominent dorsal epidural fat. Moderate central canal stenosis. Moderate bilateral foraminal stenosis with mild mass effect on the exiting L3 nerve roots bilaterally L4-L5: Diffuse annular disc bulges in part disc osteophyte and bilateral hypertrophic facet arthropathy and ligamentum flavum thickening. Moderate bilateral foraminal stenosis with mass effect on the exiting L4 nerve roots bilaterally. No central canal stenosis. L5-S1: Diffuse annular disc bulge and severe bilateral facet arthropathy. Disc osteophyte and facet arthropathy result in mild bilateral foraminal encroachment. MR/MR lumbar spine wo con IMPRESSION: - There are T2 signal changes involving the L2 and L3 vertebral bodies as well as the L2-L3 intervertebral disc eccentric to the right side with associated opposing endplate erosion, findings most concerning for L2-L3 osteomyelitis discitis. There is myositis within the adjacent right psoas muscle without a definite discrete drainable abscess. No definite significant epidural abscess on this noncontrast study. ? - At L2-L3, an inferiorly migrating central disc extrusion the traversing L3 nerve roots within the L3 lateral recesses bilaterally and along with additional multifactorial degenerative changes result in moderate to severe central canal stenosis. A right lateral disc osteophyte protrusion at L2-L3 compresses the extra foraminal right L2 nerve root. ? - At L3-L4, multifactorial degenerative changes result in moderate central canal stenosis and moderate bilateral foraminal stenosis with mild mass effect on the exiting L3 nerve roots bilaterally. ? - At L4-L5, multifactorial degenerative changes result in moderate bilateral foraminal stenosis with mass effect on the exiting L4 nerve roots bilaterally. ? Covering provider paged with these findings at 3:31 PM on 06/29/2021. Critical Care Time Critical Care Time Critical Care Time: Yes Total Critical Care Time: 45 Attestation: I have personally provided critical care time exclusive of time spent on separately billable procedures. Time includes review of laboratory data, radiology results, discussion with consultants, and monitoring for potential decompensation. Interventions were performed as documented. Discharge Plan Discharge Clinical Impression: Osteomyelitis of lumbar spine, VERONICA (acute kidney injury) Patient Disposition: Admitted As Inpatient
--- NOTE | 2021-07-06 20:42 | PC.NURSE ---
patient a&ox3, pt c/o low back pain radiating down left leg. pt also noted to be hypertensive on vitals 188/111- pt states he does take bp meds and took them today. pt awaiting to be seen by provider, will continue to monitor.
[2021-07-06 21:02] VITALS: BP 137/96; PULSE 88; RESP 18; TEMP 36.4; O2SAT 97
--- NOTE | 2021-07-06 21:54 | HE.PHANOTE ---
Addendum entered by Robyn Daly [facility] 07/06/21 22:06: DOse changed to reflect adjusted bw: 96.89kg x 10mg/kg = 968.[address] Garrido approved, dose change okay per Ana [employer] Original Note: RE DAPTOMYCIN Approved by Dr Garrido at 10mg/kg for oseto
[2021-07-06] MEDS: oxyCODONE HCl Immed Release 5 MG TABLET PO (21:55)
[2021-07-06] MEDS: Morphine Sulfate 4 MG/ML CARTRIDGE IVPUSH (21:55)
[2021-07-06 22:00] VITALS: BP 145/90; PULSE 94; RESP 18; TEMP 36.5; O2SAT 94
[2021-07-06] MEDS: 0.9 % Sodium Chloride 1,000 ML 999 ML IVCONT (22:00)
[2021-07-06] MEDS: levoFLOXacin/D5W 750 MG/150 ML PIGGYBACK 100 MG IV (22:19)
--- NOTE | 2021-07-06 22:19 | PC.NURSE ---
iv inserted by ultrasound, pt medicated for pain, iv antibiotics and iv fluids running per order, will continue to monitor
--- NOTE | 2021-07-06 22:55 | PM.IMHP ---
History of Present Illness Date of Service: 07/06/21 Chief Complaint: spine osteomyelitis 56-year-old male with past medical history of diabetes, celiac disease, CKD, hyperlipidemia, gastroparesis, history of osteomyelitis with below-knee amputation, hypertension, depression, morbid obesity, peripheral vascular disease, presents to the hospital after being sent by ID for IV antibiotics. Patient was diagnosed with osteomyelitis of the lumbar spine in May, he was seen by infectious disease last week and was asked to come to the hospital for IV antibiotic but patient had a wedding to attend and therefore did not, until today. Patient reports back pain, radiating to the left leg, he denies any numbness or tingling, he is having difficulty ambulating due to the pain but denies any weakness. He reports no fever or chills, no chest pain, no shortness of breath, no abdominal pain nausea or vomiting, no diarrhea constipation, no urinary symptoms no lower extremity edema. On arrival to the ED patient hemodynamically stable with no significant abnormal vitals except for a slightly elevated blood pressure Labs are significant for WBC count of 9.3, hemoglobin of 12, ESR of 87, BUN of 53, creatinine of 2.6 with a baseline around 2.04, CRP of 2.08, lumbar spine CT shows no evidence of epidural abscess, it shows endplate sclerosis at L3-L4 disc level, there are subchondral cystic changes along the endplate of L2-L3 vertebrae, no lytic process seen to suspect any active osteomyelitis at this time. Dr. Garrido would like pt admitted and treated with Dapto and levoquin with assessment in AM Review of Systems Review of Systems: Yes all other systems are reviewed and are negative [facility] Medical History Celiac disease Diabetes mellitus with diabetic nephropathy, with long-term current use of insulin Diabetes mellitus with retinopathy Diabetic gastroparesis associated with type 2 diabetes mellitus Diabetic neuropathy associated with type 2 diabetes mellitus Dyslipidemia Gastroparesis Hypercholesterolemia Hypertension Major depressive disorder Morbid obesity Non-toxic multinodular goiter Peripheral vascular disease Renal calculi Family History Father Hypertension Diabetes Mother No problems noted. Sister Mental health disorder Surgical History History of below-knee amputation (~06/28/17) History of esophagogastroduodenoscopy (EGD) (~09/26/13) History of lobectomy of thyroid (~03/25/15) History of repair of ACL (~2004) History of skin graft (~1993) Hx of colonoscopy S/P laparoscopic sleeve gastrectomy Social History Housing: House Alcohol intake: never Patient Tobacco Use Status: Never used Tobacco Use of substances other than those prescribed or required for medical reasons: No Advance Directives: No Advance Directives Information Provided: No service: No Current occupational status: disabled Meds Allergies Allergy/AdvReac Type Severity Reaction Status Date / Time cephalexin [CEPHALEXIN] Allergy Intermediate UNABLE TO Verified 06/14/21 19:56 MOVE ENTIRE BODY, chills and fever, nausea, chills, fever, and nausea vancomycin [VANCOMYCIN] Allergy Intermediate ITCHY,HIVES, Verified 06/14/21 19:56 nausea and vomiting metformin [METFORMIN] AdvReac Intermediate ADVISED Verified 06/14/21 19:56 NOT TO TAKE ANYMORE,SHAKEY,STOMACH PAINS, stomach upset, stomach upset Active Medications: Current Medications Levofloxacin (Levaquin) 750 mg in 150 mls @ 100 mls/hr IV Q48H SUSANNA Last Admin: 07/06/21 22:19 Dose: 100 mls/hr Documented by: Home Medications Medication Instructions Recorded Confirmed Last Taken Type allopurinol 100 mg tablet 100 mg PO DAILY 04/29/20 06/14/21 Unknown History blood sugar diagnostic #10 ea 04/29/20 06/14/21 Unknown History ferrous sulfate 324 mg (65 mg 324 mg PO DAILY 10/08/20 06/14/21 Unknown History iron) tablet,delayed release cholecalciferol (vitamin D3) 50 50 mcg PO DAILY 02/16/21 06/14/21 Unknown History mcg (2,000 unit) capsule insulin lispro 200 unit/mL (3 mL) unit SUBCUT 04/16/21 06/14/21 Unknown History subcutaneous pen (Humalog KwikPen U-200 Insulin) Physical Exam Vital Signs and Narrative: Vital Signs: Last Vital Signs Temp 97.7 F 07/06/21 22:00 Pulse 94 07/06/21 22:00 Resp 18 07/06/21 22:00 BP 145/90 H 07/06/21 22:00 Pulse Ox 94 07/06/21 22:00 BMI result Body Mass Index 39.7 Const: General: cooperative and no acute distress Orientation/consciousness: patient oriented x3 Eyes: General: appearance normal, both eyes and all related structures Resp: Effort & Inspection: normal respiratory effort Auscultation: clear to auscultation bilaterally Cardio: Rate: regular rate Rhythm: regular rhythm GI: Palpation (GI): Soft to palpation Auscultation: normal bowel sounds Skin: General skin exam: no rashes or lesions noted Neuro: General: patient oriented x3 Cognition (Neuro): normal cognition Extrem: Other: right below-knee amputation General: Yes normal to inspection and Yes no pedal edema Results Labs CBC and Chem 7: 07/06/21 12:57 07/06/21 12:56 Labs: Laboratory Results - last 24 hr 07/06/21 07/06/21 07/06/21 12:30 12:56 12:57 MCV 88.0 MCH 29.5 MCHC 33.5 RDW 14.4 Plt Count 261 MPV 10.2 Immature Gran % (Auto) 0.3 Neut % (Auto) 68.0 Lymph % (Auto) 20.0 [place] % (Auto) 9.1 Eos % (Auto) 2.2 Baso % (Auto) 0.4 Lymph # (Auto) 1.9 [place] # (Auto) 0.8 Eos # (Auto) 0.2 Baso # (Auto) 0.0 Abs Immat Gran (auto) 0.03 Absolute Neuts (auto) 6.3 Absolute Nucleated RBC 0.000 Nucleated RBC % (auto) 0.0 ESR Anion Gap 12 Estim Creat Clear Calc 44.3 Estimated GFR 26 Random Glucose 86 D Lactic Acid Calcium 9.4 Magnesium 2.0 Total Bilirubin 0.5 Direct Bilirubin 0.2 AST 10 ALT 13 Alkaline Phosphatase 94 C-Reactive Protein 2.08 H Total Protein 7.1 Albumin 3.8 COVID-19 (JOSHUA) Negative COVID-19 Clin Com See Note 07/06/21 07/06/21 12:57 12:57 MCV MCH MCHC RDW Plt Count MPV Immature Gran % (Auto) Neut % (Auto) Lymph % (Auto) [place] % (Auto) Eos % (Auto) Baso % (Auto) Lymph # (Auto) [place] # (Auto) Eos # (Auto) Baso # (Auto) Abs Immat Gran (auto) Absolute Neuts (auto) Absolute Nucleated RBC Nucleated RBC % (auto) ESR 87 H Anion Gap Estim Creat Clear Calc Estimated GFR Random Glucose Lactic Acid 1.5 Calcium Magnesium Total Bilirubin Direct Bilirubin AST ALT Alkaline Phosphatase C-Reactive Protein Total Protein Albumin COVID-19 (JOSHUA) COVID-19 Clin Com Imaging Radiologist's Impressions: Impressions Lumbar Spine CT 07/06/21 21:52 IMPRESSION: There are endplate sclerosis at L2-L3 disc level. There are subchondral cystic changes along the endplates of L2 and L3 vertebra. There is no lytic process seen to suspect any active osteomyelitis at this time. There is no abnormal paravertebral soft tissue swelling seen. There are degenerative disc changes with vacuum disc phenomena at L3-L4 and L4-L5 disc levels with mild bilateral narrowing of neural foramina. Assessment and Plan (1) Osteomyelitis of lumbar spine: Status: Acute (2) Acute kidney injury superimposed on CKD: Status: Acute 56-year-old male with multiple past medical history is including diabetes who presents to the hospital with osteomyelitis of the lumbar spine sent by Infectious to # lumbar spine osteomyelitis - acute versus chronic - seen by infectious disease last week with MRI showing osteomyelitis of the lumbar spine, recommended to be admitted for IV antibiotics by Infectious disease - daptomycin and levofloxacin ordered - infectious disease consulted - follow culture - no evidence of neurological deficit # VERONICA and CKD - last creatinine was 2.8 from January but 2.02 prior, today's creatinine is 2.6 - will start him on mild fluid - follow BMP # diabetes - low-dose sliding scale insulin, continue home insulin, diabetic diet # Htn - elevated - continue home medication # hyperlipidemia - continue statin DVT prophylaxis: Heparin subQ Quality Stroke Does the patient have a stroke diagnosis?: No VTE Prior VTE?: No VTE Risk Level:: Medical - moderate - high VTE Device Contraindication: Treatment Not Indicated VTE Drug Contraindication: N/A - Med Ordered
[2021-07-07] VITALS (7 sets, daily range): BP systolic 155–177; BP diastolic 92–104; PULSE 79–98; RESP 16–20; TEMP 36.2–37.1; O2SAT 96–99
[2021-07-07] MEDS: Heparin Sodium,Porcine 5,000 UNIT/ML VIAL 5000 UNIT SUBCUT ×3 (00:13→22:18)
--- NOTE | 2021-07-07 03:57 | PC.NURSE ---
Pt resting on stretcher in NAD, breathing with ease on RA, VSS. Pt aaox4, reports L thigh/groin pain, states I think it's from the back but it's the pain I always have. It's like an aching pain. Pt agreeable to tylenol for pain control at this time. This RN will medicate with PRN tylenol per AUG. Pt offers no additional complaints/concerns. Pt aware of need for urine sample, provided urinal to use and aware to notify staff when sample is available. Stretcher in low locked position, rail raised, call nolen within reach.
[2021-07-07] MEDS: Acetaminophen 325 MG TABLET 650 MG PO (04:06)
[2021-07-07 06:37] LABS: MANUAL DIFF FLAG NO
[2021-07-07 06:41] LABS: Basophils Percent Auto 0.4 % (0-2); Eosinophils Absolute Auto 0.2 X10*3/uL (0.0-0.4); Eosinophils Percent Auto 3.1 % (0-4); Hematocrit 37.7 % (42.0-52.0); Hemoglobin 12.4 g/dl (14.0-18.0); Imm Gran Abs Auto 0.03 X10*3/uL (0.00-0.03); Imm Gran Pct Auto 0.4 % (0.0-0.4); Lymphocytes Absolute Auto 1.4 X10*3/uL (1.2-4.9); Lymphocytes Percent Auto 18.6 % (20-40); Mean Corpuscular HGB Conc 32.9 g/dl (31.0-36.0); Mean Corpuscular Hemoglobin 29.1 pg (27.0-33.0); Mean Corpuscular Volume 88.5 fL (80.0-98.0); Monocytes Absolute Auto 0.6 X10*3/uL (0.1-1.2); Monocytes Percent Auto 7.7 % (2-11); Neutrophils Absolute Auto 5.3 x10*3/uL (2.0-8.3); Neutrophils Percent Auto 69.8 % (45-73); Platelet Count 196 X10*3/uL (160-400); Red Blood Count 4.26 X10*6/uL (4.60-5.80); Red Cell Distribution Width 14.6 % (11.0-16.0); White Blood Count 7.5 X10*3/uL (4.8-10.8)
[2021-07-07 06:57] LABS: Anion Gap 13 (12-20); Blood Urea Nitrogen 41 mg/dL (9-16); Calcium 8.9 mg/dL (8.4-10.2); Carbon Dioxide 20 mmol/L (22-29); Chloride 109 mmol/L (96-108); Creatinine Clr Calc Pharmacy 56.4; Estimated Glomerular Filt Rate 34; Glucose Random 160 mg/dL (60-115); Potassium 4.3 mmol/L (3.3-5.1); Sodium 138 mmol/L (135-145)
[2021-07-07 07:26] LABS: Glucose, Whole Blood 153 mg/dL (60-115)
[2021-07-07 07:54] LABS: Appearance Urine CLEAR; Color Urine STRAW; Glucose Urine UA 100 MG/DL (NEG); Leukocyte Esterase Urine NEG (NEG); Nitrite Urine NEG (NEG); PH 5.5 (5.0-8.0); UACC Culture Trigger NO; Urine Blood TRACE (NEG); Urine Ketones NEG (NEG); Urine Protein 2+ MG/DL (NEG-TRACE)
[2021-07-07 08:02] LABS: Amorphous Sediment Urine TRACE /LPF; RBC Urine 0 /HPF (0); WBC Urine 0-2 /HPF (0-4)
--- NOTE | 2021-07-07 09:00 | PC.NURSE ---
late entry 7am. pt resting comfortably. aware of plan for MRI.
[2021-07-07] MEDS: Insulin Lispro 100 UNIT/ML 3 ML VIAL SUBCUT ×2 (09:08→21:22)
[2021-07-07] MEDS: Morphine Sulfate 4 MG/ML CARTRIDGE IVPUSH (09:13)
--- NOTE | 2021-07-07 09:46 | PC.NURSE ---
RN to RN with Sasha on med surg.
--- NOTE | 2021-07-07 09:54 | PHA.MEDREC ---
Pharmacy Consult ? Medication Reconciliation Pharmacy has completed the medication reconciliation. There are no remarkable issues for provider's attention. Renay Graff, BenD
--- NOTE | 2021-07-07 10:10 | MHC.CM.PN ---
CM ATTEMPTED TO MEET WITH PT IN ED07. PT APPEARS TO BE OFF UNIT. CM WILL REVISIT
[2021-07-07 11:58] LABS: Glucose, Whole Blood 190 mg/dL (60-115)
--- NOTE | 2021-07-07 16:00 | P.CNID_ITS ---
History of Present Illness Data of Consult Service Date: 07/07/21 Requesting physician: Lisa Hoskins Primary Care Provider: Shereen Cortes MD [facility] Reason for consult: osteomyelitis spine He presents with back pain,02/03. He has had this for several months and had worsening with fever and came to ER last month,but persisted somewhat. He has seen PT with not much improvement. He came to attention of Nurse Practitioner,Zahida Romo, and she ordered MRI The MRI showed L2-L3 osteomyelitis and he saw me in office. He continued to feel ill and had bilateral leg pain,01/03 as well He was advised to come to ER since he likely would need further workup NANCY for osteomyelitis Review of Systems Verdana 4l Review of Systems: Yes all other systems are reviewed and Verdana 4d are negative PMFSH Past Medical History Medical History Celiac disease Diabetes mellitus with diabetic nephropathy, with long-term current use of insulin Diabetes mellitus with retinopathy Diabetic gastroparesis associated with type 2 diabetes mellitus Diabetic neuropathy associated with type 2 diabetes mellitus Dyslipidemia Gastroparesis Hypercholesterolemia Hypertension Major depressive disorder Morbid obesity Non-toxic multinodular goiter Peripheral vascular disease Renal calculi Family History Family History Father Hypertension Diabetes Mother No problems noted. Sister Mental health disorder Family history: reviewed and not pertinent Surgical History Surgical History History of below-knee amputation (~06/28/17) History of esophagogastroduodenoscopy (EGD) (~09/26/13) History of lobectomy of thyroid (~03/25/15) History of repair of ACL (~2004) History of skin graft (~1993) Hx of colonoscopy S/P laparoscopic sleeve gastrectomy Social History Social History Household Members: Spouse Housing: Apartment Do you presently have visiting nurse or other home services: No Alcohol intake: never Patient Tobacco Use Status: Never used Tobacco e-Cigarette/Vaping Use: Never Used service: No Current occupational status: disabled Meds Allergies Allergy/AdvReac Type Severity Reaction Status Date / Time cephalexin Allergy Intermediate UNABLE TO Verified 07/14/21 11:37 [CEPHALEXIN] MOVE ENTIRE BODY, chills and fever, nausea, chills, fever, and nausea vancomycin Allergy Intermediate ITCHY,HIVES, Verified 07/14/21 11:37 [VANCOMYCIN] nausea and vomiting metformin AdvReac Intermediate ADVISED Verified 07/14/21 11:37 [METFORMIN] NOT TO TAKE ANYMORE,SHAKEY ,STOMACH PAINS, stomach upset, stomach upset Active Medications: Current Medications Acetaminophen (Acetaminophen 325 Mg Tablet) 650 mg PO Q6H PRN PRN Reason: Pain, Mild (Pain Scale 1-3) Last Admin: 07/07/21 04:06 Dose: 650 mg Documented by: Dextrose (Dextrose 50 % 25 Gm/50 Ml Vial) 25 gm IVPUSH Q15M PRN; Protocol PRN Reason: per Hypoglycemia Standing Ord. Docusate Sodium (Docusate Sodium 100 Mg Capsule) 100 mg PO DAILY PRN PRN Reason: Constipation Glucose (Glucose Gel 15 Gm Gel..Gram.) 15 gm PO Q15M PRN; Protocol PRN Reason: per Hypoglycemia Standing Ord. Heparin Sodium (Porcine) (Heparin Sodium,Porcine 5,000 Unit/Ml Vial) 5,000 unit SUBCUT Q12H [facility] Last Admin: 07/07/21 13:18 Dose: 5,000 unit Documented by: Levofloxacin (Levaquin) 750 mg in 150 mls @ 100 mls/hr IV Q48H [facility] Last Infusion: 07/07/21 00:06 Dose: Infused Documented by: Daptomycin 970 mg/ Sodium (Chloride) 69.4 mls @ 100 mls/hr IV Q24H [facility] Insulin Human Lispro (Insulin Lispro 100 Unit/Ml 3 Ml Vial) 0 unit SUBCUT QIDACHS [facility]; Protocol Last Admin: 07/07/21 12:51 Dose: Not Given Documented by: Morphine Sulfate (Morphine Sulfate 4 Mg/Ml Cartridge) 4 mg IVPUSH Q4H PRN; Protocol PRN Reason: Pain, Severe (Pain Scale 7-10) Last Admin: 07/07/21 09:13 Dose: 4 mg Documented by: Ondansetron HCl (Ondansetron Hcl 4 Mg/2 Ml Vial) 4 mg IVPUSH Q8H PRN PRN Reason: Nausea and Vomiting Sodium Chloride (0.9 % Sodium Chloride Flush 3 Ml Syringe) 3 ml IVFLUSH QSHIFT [facility] Last Admin: 07/07/21 09:01 Dose: Not Given Documented by: Home Medications Medication Instructions Recorded Confirmed Last Taken Type allopurinol 100 100 mg PO DAILY 04/29/20 07/07/21 Unknown History mg tablet blood sugar #10 ea 04/29/20 06/14/21 Unknown History diagnostic ferrous sulfate 324 mg PO DAILY 10/08/20 07/07/21 Unknown History 324 mg (65 mg iron) tablet,delayed release cholecalciferol 50 mcg PO DAILY 02/16/21 07/07/21 Unknown History (vitamin D3) 50 mcg (2,000 unit) capsule insulin lispro See Protocol 04/16/21 07/07/21 Unknown History 200 unit/mL (3 SUBCUT TIDAC mL) subcutaneous pen (Humalog KwikPen U-200 Insulin) Physical Exam Verdana 4l Vital Signs: Verdana 4d Verdana 4d Vital Signs: Verdana 4d Verdana 4Bd Last Vital Signs Verdana 4d Operations Leader New 4d Operations Leader New 4d Temp 98.6 F 07/07/21 15:21 Operations Leader New 4d Pulse 81 07/07/21 15:21 Operations Leader New 4d Resp 17 07/07/21 15:21 BP 171/99 H 07/07/21 15:21 Pulse Ox 97 07/07/21 15:21 BMI result Body Mass Index 39.7 Const: General: cooperative Orientation/consciousness: patient oriented x3 Eyes: General: appearance normal, both eyes and all related structures Pupils: Equal, round and reactive pupils present Resp: Effort & Inspection: normal respiratory effort Cardio: Rate: regular rate Rhythm: regular rhythm GI: Palpation (GI): Soft to palpation and nontender Back/Spine/Pelvis: Cervical Spine: normal cervical lordosis Pelvis: no pain with lateral compression Sacroiliac joints: bilaterally Neuro: Other: pain lower back General: patient oriented x3 and CN's II-XI intact bilaterally Cranial nerves: Yes Equal, round and reactive pupils present Results Labs CBC & Chem 7: 07/09/21 09:42 07/10/21 14:44 Labs: Short CBC 07/07/21 Range/Units 06:13 WBC 7.5 (4.8-10.8) X10*3/uL Hgb 12.4 L (14.0-18.0) g/dl Hct 37.7 L (42.0-52.0) % Plt Count 196 (160-400) X10*3/uL BMP 07/07/21 06:13 Sodium 138 Potassium 4.3 Chloride 109 H Carbon Dioxide 20 L BUN 41 H Creatinine 2.05 H Calcium 8.9 Urine 07/07/21 Range/Units 07:23 Urine Color STRAW Urine Appearance CLEAR Urine pH 5.5 (5.0-8.0) Ur Specific [place] 1.020 (1.005-1.025) Urine Protein 2+ H (NEG-TRACE) MG/DL Urine Glucose (UA) 100 H (NEG) MG/DL Microbiology Microbiology Results: Microbiology 07/06/21 12:56 Blood - Venous Blood Culture - Preliminary No growth after 24 hours. 07/06/21 12:56 Blood - Venous Blood Culture - Preliminary No growth after 24 hours. Assessment and Plan (1) Osteomyelitis of lumbar spine: Status: Acute The organism is unknown He may have staph or strep (2) Acute kidney injury superimposed on CKD: Status: Resolved Plan Would give Daptomycin and possible po Levaquin as well due to allergies Needs line,6 week IV Weekly CPK,creatinine,cbc
[2021-07-07 16:03] LABS: Glucose, Whole Blood 149 mg/dL (60-115)
[2021-07-07] MEDS: 0.9 % Sodium Chloride Flush 3 ML SYRINGE IVFLUSH (16:42)
--- NOTE | 2021-07-07 16:56 | P.PNIM_ITS ---
Subjective Subjective Date of Service: 07/07/21 Interval History: spinal osteomyelitis Review of Systems says still has back pain but slightly better than yesterday. Denies any new leg weakness or numbness feel generally weak Physical Exam Vital Signs: Vital Signs: Last Vital Signs Temp 98.6 F 07/07/21 15:21 Pulse 81 07/07/21 15:21 Resp 17 07/07/21 15:21 BP 171/99 H 07/07/21 15:21 Pulse Ox 97 07/07/21 15:21 BMI result Body Mass Index 39.7 physical exam: Appearance: Alert.? Oriented X3.? not in distress.? Eyes: Pupils equal, round and reactive to light.? Sclera nonicteric.? cvs: rrr, [id number] , no murmur res: clear to auscultation ,no rhonchii or wheezing abd: no rebound or guarding ,nt, bs present. ext pulses present , no cyanosis , right bka . neuro: axo3 , nonfocal. Objective Data Active Medications Acetaminophen (Acetaminophen 325 Mg Tablet) 650 mg PO Q6H PRN PRN Reason: Pain, Mild (Pain Scale 1-3) Last Admin: 07/07/21 04:06 Dose: 650 mg Documented by: SCARLET Dextrose (Dextrose 50 % 25 Gm/50 Ml Vial) 25 gm IVPUSH Q15M PRN; Protocol PRN Reason: per Hypoglycemia Standing Ord. Docusate Sodium (Docusate Sodium 100 Mg Capsule) 100 mg PO DAILY PRN PRN Reason: Constipation Glucose (Glucose Gel 15 Gm Gel..Gram.) 15 gm PO Q15M PRN; Protocol PRN Reason: per Hypoglycemia Standing Ord. Heparin Sodium (Porcine) (Heparin Sodium,Porcine 5,000 Unit/Ml Vial) 5,000 unit SUBCUT Q12H [facility] Last Admin: 07/07/21 13:18 Dose: 5,000 unit Documented by: BRUNA Levofloxacin (Levaquin) 750 mg in 150 mls @ 100 mls/hr IV Q48H [facility] Last Infusion: 07/07/21 00:06 Dose: 0 mls/hr Documented by: FEROZ Daptomycin 970 mg/ Sodium (Chloride) 69.4 mls @ 100 mls/hr IV Q24H [facility] Insulin Human Lispro (Insulin Lispro 100 Unit/Ml 3 Ml Vial) 0 unit SUBCUT QIDACHS [facility]; Protocol Last Admin: 07/07/21 16:38 Dose: Not Given Documented by: TATYANA Non-Admin Reason: No Insulin Coverage Morphine Sulfate (Morphine Sulfate 4 Mg/Ml Cartridge) 4 mg IVPUSH Q4H PRN; Protocol PRN Reason: Pain, Severe (Pain Scale 7-10) Last Admin: 07/07/21 09:13 Dose: 4 mg Documented by: RICARDA Ondansetron HCl (Ondansetron Hcl 4 Mg/2 Ml Vial) 4 mg IVPUSH Q8H PRN PRN Reason: Nausea and Vomiting Sodium Chloride (0.9 % Sodium Chloride Flush 3 Ml Syringe) 3 ml IVFLUSH [facility] Last Admin: 07/07/21 16:42 Dose: 3 ml Documented by: TATYANA Labs CBC & Chem 7: 07/07/21 06:13 07/07/21 06:13 Labs: Laboratory Results - last 24 hr 07/07/21 07/07/21 07/07/21 06:13 06:13 07:15 MCV 88.5 MCH 29.1 MCHC 32.9 RDW 14.6 Plt Count 196 MPV 11.0 Immature Gran % (Auto) 0.4 Neut % (Auto) 69.8 Lymph % (Auto) 18.6 L [place] % (Auto) 7.7 Eos % (Auto) 3.1 Baso % (Auto) 0.4 Lymph # (Auto) 1.4 [place] # (Auto) 0.6 Eos # (Auto) 0.2 Baso # (Auto) 0.0 Abs Immat Gran (auto) 0.03 Absolute Neuts (auto) 5.3 Absolute Nucleated RBC 0.000 Nucleated RBC % (auto) 0.0 Anion Gap 13 Estim Creat Clear Calc 56.4 Estimated GFR 34 POC Glucose 153 H Random Glucose 160 H D Calcium 8.9 Urine Color Urine Appearance Urine pH Ur Specific [place] Urine Protein Urine Glucose (UA) Urine Ketones Urine Blood Urine Nitrite Ur Leukocyte Esterase Urine RBC Urine WBC Ur Squamous Epith Cells Amorphous Sediment Urine Bacteria 07/07/21 07/07/21 07/07/21 07:23 11:43 15:29 MCV MCH MCHC RDW Plt Count MPV Immature Gran % (Auto) Neut % (Auto) Lymph % (Auto) [place] % (Auto) Eos % (Auto) Baso % (Auto) Lymph # (Auto) [place] # (Auto) Eos # (Auto) Baso # (Auto) Abs Immat Gran (auto) Absolute Neuts (auto) Absolute Nucleated RBC Nucleated RBC % (auto) Anion Gap Estim Creat Clear Calc Estimated GFR POC Glucose 190 H 149 H Random Glucose Calcium Urine Color STRAW Urine Appearance CLEAR Urine pH 5.5 Ur Specific [place] 1.020 Urine Protein 2+ H Urine Glucose (UA) 100 H Urine Ketones NEG Urine Blood TRACE Urine Nitrite NEG Ur Leukocyte Esterase NEG Urine RBC 0 Urine WBC 0-2 Ur Squamous Epith Cells NONE Amorphous Sediment TRACE Urine Bacteria NONE Microbiology Microbiology Results: Microbiology 07/06/21 12:56 Blood Culture - Preliminary Blood - Venous No growth after 24 hours. 07/06/21 12:56 Blood Culture - Preliminary Blood - Venous No growth after 24 hours. Assessment and Plan (1) Acute kidney injury superimposed on CKD: Status: Acute (2) Osteomyelitis of lumbar spine: Status: Acute Assessment and Plan: 56-year-old male with multiple? past medical history is including diabetes who presents to the hospital with osteomyelitis of the lumbar spine sent by Infectious to 1.lumbar spine osteomyelitis-? acute versus chronic: ? seen by infectious disease last week with MRI showing osteomyelitis of the lumbar spine, recommended to be admitted for IV antibiotics by Infectious? disease. no evidence of neurological deficit continue ? daptomycin and levofloxacin ordered, culture pending 2. VREONICA and CKD:- ? last? creatinine was 2.8 from January but 2.02 prior, today's creatinine is 2.6 -? will start him on mild fluid -? follow BMP 3.? diabetes: fs flactauating -? low-dose? sliding scale insulin, continue home? insulin, diabetic diet 4. Htn -? elevated started home medication 5. hyperlipidemia -? continue statin ?DVT prophylaxis:? Heparin subQ Quality Stroke Does the patient have a stroke diagnosis?: No VTE Prior VTE?: No VTE Risk Level:: Medical - moderate - high VTE Device Contraindication: Treatment Not Indicated VTE Drug Contraindication: N/A - Med Ordered
[2021-07-07] MEDS: Ferrous Sulfate 324 MG TABLET.DR PO (18:40)
[2021-07-07] MEDS: Cholecalciferol (Vitamin D3) 25 MCG TABLET 50 MCG PO (18:40)
[2021-07-07] MEDS: amLODIPine Besylate 10 MG TABLET PO (18:40)
[2021-07-07] MEDS: Atorvastatin Calcium 10 MG TABLET PO (18:41)
[2021-07-07 19:31] LABS: Glucose, Whole Blood 205 mg/dL (60-115)
[2021-07-07] MEDS: Gabapentin 600 MG TABLET 1200 MG PO (21:22)
[2021-07-08] VITALS (7 sets, daily range): BP systolic 144–182; BP diastolic 86–96; PULSE 86–97; RESP 16–20; TEMP 36.3–37.5; O2SAT 94–100
[2021-07-08] MEDS: 0.9 % Sodium Chloride Flush 3 ML SYRINGE IVFLUSH ×4 (00:11→23:50)
[2021-07-08] MEDS: Morphine Sulfate 4 MG/ML CARTRIDGE IVPUSH ×2 (05:37→20:53)
[2021-07-08] MEDS: Omeprazole 40 MG CAPSULE.DR PO (05:37)
[2021-07-08 07:25] LABS: Glucose, Whole Blood 160 mg/dL (60-115)
[2021-07-08] MEDS: Insulin Lispro 100 UNIT/ML 3 ML VIAL SUBCUT ×4 (07:30→20:55)
[2021-07-08] MEDS: amLODIPine Besylate 10 MG TABLET PO (07:30)
[2021-07-08] MEDS: Gabapentin 600 MG TABLET 1200 MG PO ×2 (07:33→20:55)
[2021-07-08] MEDS: Cholecalciferol (Vitamin D3) 25 MCG TABLET 50 MCG PO (07:33)
[2021-07-08] MEDS: Ferrous Sulfate 324 MG TABLET.DR PO (07:33)
[2021-07-08] MEDS: Atorvastatin Calcium 10 MG TABLET PO (07:33)
[2021-07-08] MEDS: allopurinoL 100 MG TABLET PO (07:33)
--- NOTE | 2021-07-08 08:13 | HO.PM.IMPN ---
Subjective Subjective Date of Service: 07/09/21 Interval History: spinal osteomyelitis Review of Systems patient said back pain is improving, denies any new symptoms. Denies any chest pain or shortness of breath. Physical Exam Vital Signs: Vital Signs: Last Vital Signs Temp 98.0 F 07/08/21 07:21 Pulse 87 07/08/21 07:21 Resp 16 07/08/21 07:21 BP 182/92 H 07/08/21 07:21 Pulse Ox 97 07/08/21 07:21 BMI result Body Mass Index 39.7 Appearance: Alert.? Oriented X3.? not in distress.? Eyes: Pupils equal, round and reactive to light.? Sclera nonicteric.? cvs: rrr, [id number] , no murmur res: clear to auscultation ,no rhonchii or wheezing abd: no rebound or guarding ,nt, bs present. ext pulses present , no cyanosis , right bka . back pain seems improving significantly neuro: axo3 , nonfocal Objective Data Active Medications Acetaminophen (Acetaminophen 325 Mg Tablet) 650 mg PO Q6H PRN PRN Reason: Pain, Mild (Pain Scale 1-3) Last Admin: 07/07/21 04:06 Dose: 650 mg Documented by: SCARLET Allopurinol (Allopurinol 100 Mg Tablet) 100 mg PO DAILY [facility] Last Admin: 07/08/21 07:33 Dose: 100 mg Documented by: ALBERT Amlodipine Besylate (Amlodipine Besylate 10 Mg Tablet) 10 mg PO DAILY [facility]; Protocol Last Admin: 07/07/21 18:40 Dose: 10 mg Documented by: TATYANA Atorvastatin Calcium (Atorvastatin Calcium 10 Mg Tablet) 10 mg PO DAILY [facility] Last Admin: 07/08/21 07:33 Dose: 10 mg Documented by: ALBERT Cyclobenzaprine HCl (Cyclobenzaprine Hcl 5 Mg Tablet) 5 mg PO BID PRN PRN Reason: back pain Dextrose (Dextrose 50 % 25 Gm/50 Ml Vial) 25 gm IVPUSH Q15M PRN; Protocol PRN Reason: per Hypoglycemia Standing Ord. Docusate Sodium (Docusate Sodium 100 Mg Capsule) 100 mg PO DAILY PRN PRN Reason: Constipation Ferrous Sulfate (Ferrous Sulfate 324 Mg Tablet.) 324 mg PO DAILY [facility] Last Admin: 07/08/21 07:33 Dose: 324 mg Documented by: ALBERT Gabapentin (Gabapentin 600 Mg Tablet) 1,200 mg PO BID [facility] Last Admin: 07/08/21 07:33 Dose: 1,200 mg Documented by: ALBERT Glucose (Glucose Gel 15 Gm Gel..Gram.) 15 gm PO Q15M PRN; Protocol PRN Reason: per Hypoglycemia Standing Ord. Heparin Sodium (Porcine) (Heparin Sodium,Porcine 5,000 Unit/Ml Vial) 5,000 unit SUBCUT Q12H [facility] Last Admin: 07/07/21 22:18 Dose: 5,000 unit Documented by: TATYANA Levofloxacin (Levaquin) 750 mg in 150 mls @ 100 mls/hr IV Q48H [facility] Last Infusion: 07/07/21 00:06 Dose: 0 mls/hr Documented by: FEROZ Daptomycin 970 mg/ Sodium (Chloride) 69.4 mls @ 100 mls/hr IV Q24H [facility] Last Infusion: 07/07/21 22:08 Dose: 0 mls/hr Documented by: TATYANA Insulin Human Lispro (Insulin Lispro 100 Unit/Ml 3 Ml Vial) 0 unit SUBCUT QIDACHS [facility]; Protocol Last Admin: 07/07/21 21:22 Dose: 4 unit Documented by: TATYANA Morphine Sulfate (Morphine Sulfate 4 Mg/Ml Cartridge) 4 mg IVPUSH Q4H PRN; Protocol PRN Reason: Pain, Severe (Pain Scale 7-10) Last Admin: 07/08/21 05:37 Dose: 4 mg Documented by: SILVIA Omeprazole (Omeprazole 40 Mg John.) 40 mg PO DAILY@0630 [facility] Last Admin: 07/08/21 05:37 Dose: 40 mg Documented by: SILVIA Ondansetron HCl (Ondansetron Hcl 4 Mg/2 Ml Vial) 4 mg IVPUSH Q8H PRN PRN Reason: Nausea and Vomiting Sodium Chloride (0.9 % Sodium Chloride Flush 3 Ml Syringe) 3 ml IVFLUSH QSHIFT [facility] Last Admin: 07/08/21 00:11 Dose: 3 ml Documented by: SILVIA Tizanidine HCl (Tizanidine Hcl 4 Mg Tablet) 2 mg PO TID PRN PRN Reason: muscle spasticity Vitamin D (Cholecalciferol (Vitamin D3) 25 Mcg Tablet) 50 mcg PO DAILY [facility] Last Admin: 07/08/21 07:33 Dose: 50 mcg Documented by: ALBERT Labs CBC & Chem 7: 07/09/21 09:42 07/09/21 09:42 Labs: Laboratory Results - last 24 hr 07/07/21 07/07/21 07/07/21 11:43 15:29 19:25 POC Glucose 190 H 149 H 205 H 07/08/21 07:19 POC Glucose 160 H Microbiology Microbiology Results: Microbiology 07/06/21 12:56 Blood Culture - Preliminary Blood - Venous No growth after 24 hours. 07/06/21 12:56 Blood Culture - Preliminary Blood - Venous No growth after 24 hours. Assessment and Plan (1) VERONICA (acute kidney injury): Status: Acute (2) Osteomyelitis of lumbar spine: Status: Acute Assessment and Plan: 56-year-old male with multiple? past medical history is including diabetes who presents to the hospital with osteomyelitis of the lumbar spine sent by Infectious to 1.lumbar spine osteomyelitis-? acute versus chronic: ? seen by infectious disease last week with MRI showing osteomyelitis of the lumbar spine, recommended to be admitted for IV antibiotics by Infectious? disease. no evidence of neurological deficit continue ? daptomycin and levofloxacin ordered, culture pending discussed with ID blood culture preliminary negative at 24 hours, id recommended 6 weeks of IV daptomycin/Levaquin, IR consult was placed for PICC line placement which required Nephro clearance so Nephro evaluation added. 2. VERONICA on ckd stage 3. improved to baseline. Off IV fluids 3.? diabetes: fs flactauating -? low-dose? sliding scale insulin, continue home? insulin, diabetic diet 4. Htn -? elevated started home? medication 5. hyperlipidemia -? continue statin ?DVT prophylaxis:? Heparin subQ Quality Stroke Does the patient have a stroke diagnosis?: No VTE Prior VTE?: No VTE Risk Level:: Medical - moderate - high VTE Device Contraindication: Treatment Not Indicated VTE Drug Contraindication: N/A - Med Ordered
[2021-07-08 10:17] LABS: INTERNATIONAL NORM RATIO 1.1 (0.9-1.1); Prothrombin Time 12.5 SEC (9.9-13.0)
[2021-07-08 10:19] LABS: Partial Thromboplastin Time 40.6 SEC (24.1-38.0)
--- NOTE | 2021-07-08 11:11 | MHC.CLN ---
NUTRITION PATIENT REPORTS GOOD APPETITE. ADDING HIGH ENSURE MAX PROTEIN BID DUE TO GASTRIC SLEEVE SURGERY 01/14. STATED THAT MISDIAGNOSED WITH CELIAC DISEASE YEARS AGO AND DOES NOT FOLLOW A GLUTEN FREE DIET.
[2021-07-08 11:25] LABS: Glucose, Whole Blood 173 mg/dL (60-115)
[2021-07-08] MEDS: Heparin Sodium,Porcine 5,000 UNIT/ML VIAL 5000 UNIT SUBCUT ×2 (11:31→22:59)
--- NOTE | 2021-07-08 12:20 | P.CDIC_ITS ---
CDI Concurrent Query Documentation Clarification: PHYSICIAN'S DOCUMENTATION REQUEST Date of Query: 07/08/21 1220 Patient Name: Moustapha Ruiz Admit Date: 07/06/21 Dear Doctor, A review of the medical record indicates additional documentation may be needed. Please review below and update the documentation accordingly. Clinical Indicators: The following clinical information was noted in the record: Risk Factors/Clinical Indicators/Treatments MD progress note 07/07/21: VERONICA and CKD:- ? last? creatinine was 2.8 from January but 2.02 prior, today's creatinine is 2.6 -? will start him on mild fluid -? follow BMP Please clarify which of the following accurately represents the patient's renal status: * CKD, please provide stage - see criteria * Other (please specify) * Unable to determine Criteria for VERONICA* Stages of Chronic Kidney Disease* 1. Increase in serum creatinine by ? 0.3 mg/dL Level Description GFR (?26.5 micromol/L) within 48 hours, or G1 Normal or High > 90 2. Increase in serum creatinine to ?1.5 times baseline, G2 Mildly decreased 60 ? 89 which is known or presumed to have occurred within 7 days, or G3a Mildly to moderately decreased 45 ? 59 3. Urine volume <0.5 mL/kg/hour for six hours G3b Moderately to severely decreased 30 - 44 G4 Severely decreased 15 ? 29 G5 Kidney failure < 15 *Source: Kidney Disease: Improving Global Outcomes (KDIGO) 2012 Use of terms such as suspected, likely, concern for, or probable (associated with a specific diagnosis that is being evaluated, monitored, or treated as if it exists) are acceptable and can be coded in the inpatient setting, when documented at the time of discharge. Thank you, Kya Goldman RN Extension: [phone] Please use your independent medical judgment in providing your response. THIS QUERY IS PART OF THE PERMANENT MEDICAL RECORD Provider Response: Other Other Diagnosis: veronica on ckd stage3.
--- NOTE | 2021-07-08 15:48 | PM.PNNEP ---
Subjective Subjective Date of Service: 07/10/21 Interval history: spinal osteomyelitis Physical Exam Vital Signs: Vital Signs: Last Vital Signs Temp 98 F 07/08/21 11:20 Pulse 86 07/08/21 15:40 Resp 18 07/08/21 15:40 BP 144/86 H 07/08/21 15:40 Pulse Ox 99 07/08/21 15:40 BMI result Body Mass Index 39.7 Objective Data Labs CBC & Chem 7: 07/09/21 09:42 07/09/21 09:42 Labs: Laboratory Results - last 24 hr 07/07/21 07/07/21 07/08/21 15:29 19:25 07:19 PT INR APTT POC Glucose 149 H 205 H 160 H Total Creatine Kinase 07/08/21 07/08/21 07/08/21 09:33 09:33 11:17 PT 12.5 INR 1.1 APTT 40.6 H POC Glucose 173 H Total Creatine Kinase 89 D Microbiology Microbiology Results: Microbiology 07/06/21 12:56 Blood - Venous Blood Culture - Preliminary No growth after 48 hours. 07/06/21 12:56 Blood - Venous Blood Culture - Preliminary No growth after 48 hours. Procedures Date of Service Date of Service: 07/08/21 Assessment & Plan Assessment and plan (1) VERONICA (acute kidney injury): Status: Acute Assessment and Plan: Chart reviewed. 56 yo man with CKD3 with superimposed VERONICA At risk for progression to ESRD Prefer to avoid PICC line unless it is a life saving measure Consider alternatives like Alexander etc Full consult to follow Time Spent With Patient Time: Total time spent is greater than 50% in coordination of care (as documented) at patient's floor/unit and/or counseling patient: Time with patient: 15 - 24 minutes Progress Note: Quality Stroke Does the patient have a stroke diagnosis?: No
[2021-07-08 16:38] LABS: Glucose, Whole Blood 167 mg/dL (60-115)
[2021-07-08 20:38] LABS: Glucose, Whole Blood 208 mg/dL (60-115)
[2021-07-08] MEDS: levoFLOXacin/D5W 750 MG/150 ML PIGGYBACK 100 MG IV (20:57)
[2021-07-09] VITALS (9 sets, daily range): BP systolic 135–176; BP diastolic 83–98; PULSE 81–97; RESP 16–18; TEMP 36.1–36.8; O2SAT 94–99
[2021-07-09] MEDS: Omeprazole 40 MG CAPSULE.DR PO (06:19)
[2021-07-09 07:35] LABS: Glucose, Whole Blood 153 mg/dL (60-115)
[2021-07-09] MEDS: 0.9 % Sodium Chloride Flush 3 ML SYRINGE IVFLUSH ×3 (07:37→20:29)
[2021-07-09] MEDS: Atorvastatin Calcium 10 MG TABLET PO (07:37)
[2021-07-09] MEDS: Insulin Lispro 100 UNIT/ML 3 ML VIAL SUBCUT ×2 (07:37→20:35)
[2021-07-09] MEDS: amLODIPine Besylate 10 MG TABLET PO (07:37)
[2021-07-09] MEDS: Cholecalciferol (Vitamin D3) 25 MCG TABLET 50 MCG PO (07:37)
[2021-07-09] MEDS: allopurinoL 100 MG TABLET PO (07:37)
[2021-07-09] MEDS: Gabapentin 600 MG TABLET 1200 MG PO ×2 (07:38→20:29)
[2021-07-09] MEDS: Ferrous Sulfate 324 MG TABLET.DR PO (07:38)
[2021-07-09 09:55] LABS: Hematocrit 36.4 % (42.0-52.0); Hemoglobin 12.1 g/dl (14.0-18.0); Mean Corpuscular HGB Conc 33.2 g/dl (31.0-36.0); Mean Corpuscular Hemoglobin 29.6 pg (27.0-33.0); Platelet Count 256 X10*3/uL (160-400); Red Blood Count 4.09 X10*6/uL (4.60-5.80); Red Cell Distribution Width 14.4 % (11.0-16.0); White Blood Count 9.1 X10*3/uL (4.8-10.8)
--- NOTE | 2021-07-09 10:01 | MHC.CM.PN ---
PER REVIEW OF NOTES, [facility] IS RECOMMENDING A DENSON AND NOT A PICC. NO DC TODAY [facility] UPDATED
[2021-07-09 10:09] LABS: Anion Gap 13 (12-20); Blood Urea Nitrogen 40 mg/dL (9-16); Calcium 9.3 mg/dL (8.4-10.2); Carbon Dioxide 23 mmol/L (22-29); Chloride 106 mmol/L (96-108); Creatinine Clr Calc Pharmacy 47.8; Estimated Glomerular Filt Rate 28; Glucose Random 216 mg/dL (60-115); Potassium 4.9 mmol/L (3.3-5.1); Sodium 137 mmol/L (135-145)
--- NOTE | 2021-07-09 10:19 | P.CONNP_ITS ---
History of Present Illness Reason for Consult Consult date: 07/09/21 Chief Complaint Chief complaint: Osteomyelitis History of Present Illness Narrative: ?56-year-old male with a history of? diabetes, celiac disease, CKD, hyperlipidemia, gastroparesis, history of osteomyelitis with below-knee amputation, hypertension, depression, morbid obesity, peripheral vascular disease, presents to the hospital after being sent by ID for IV antibiotics.? Patient was diagnosed with osteomyelitis of the lumbar spine in May, he was seen by infectious disease last week? and was asked to come to the hospital for IV antibiotic but patient had a wedding ? to attend and therefore did not, until today.? Patient reports back pain, radiating to the left leg, he denies any numbness or tingling, he is having difficulty ambulating due to the pain but denies any weakness.? He reports no fever or chills, no chest pain, no shortness of breath, no abdominal pain nausea or vomiting, no diarrhea constipation, no urinary symptoms no lower extremity edema. Cr 2.9 on admission Down to 2.4 Baseline of 2.4 ? Review of Systems Review of Systems Yes all other systems are reviewed and are negative PMFSH Past Medical History Medical History Celiac disease Diabetes mellitus with diabetic nephropathy, with long-term current use of insulin Diabetes mellitus with retinopathy Diabetic gastroparesis associated with type 2 diabetes mellitus Diabetic neuropathy associated with type 2 diabetes mellitus Dyslipidemia Gastroparesis Hypercholesterolemia Hypertension Major depressive disorder Morbid obesity Non-toxic multinodular goiter Peripheral vascular disease Renal calculi Family History Family History Father Hypertension Diabetes Mother No problems noted. Sister Mental health disorder Family history: reviewed and not pertinent Surgical History Surgical History History of below-knee amputation (~06/28/17) History of esophagogastroduodenoscopy (EGD) (~09/26/13) History of lobectomy of thyroid (~03/25/15) History of repair of ACL (~2004) History of skin graft (~1993) Hx of colonoscopy S/P laparoscopic sleeve gastrectomy Social History Social History Household Members: Spouse Housing: Apartment Do you presently have visiting nurse or other home services: No Alcohol intake: never Patient Tobacco Use Status: Never used Tobacco service: No Current occupational status: disabled Meds Allergies Allergy/AdvReac Type Severity Reaction Status Date / Time cephalexin [CEPHALEXIN] Allergy Intermediate UNABLE TO Verified 06/14/21 19:56 MOVE ENTIRE BODY, chills and fever, nausea, chills, fever, and nausea vancomycin [VANCOMYCIN] Allergy Intermediate ITCHY,HIVES, Verified 06/14/21 19:56 nausea and vomiting metformin [METFORMIN] AdvReac Intermediate ADVISED Verified 06/14/21 19:56 NOT TO TAKE ANYMORE,SHAKEY,STOMACH PAINS, stomach upset, stomach upset Active Medications: Current Medications Acetaminophen (Acetaminophen 325 Mg Tablet) 650 mg PO Q6H PRN PRN Reason: Pain, Mild (Pain Scale 1-3) Last Admin: 07/07/21 04:06 Dose: 650 mg Documented by: Allopurinol (Allopurinol 100 Mg Tablet) 100 mg PO DAILY [facility] Last Admin: 07/09/21 07:37 Dose: 100 mg Documented by: Amlodipine Besylate (Amlodipine Besylate 10 Mg Tablet) 10 mg PO DAILY [facility]; Protocol Last Admin: 07/09/21 07:37 Dose: 10 mg Documented by: Atorvastatin Calcium (Atorvastatin Calcium 10 Mg Tablet) 10 mg PO DAILY [facility] Last Admin: 07/09/21 07:37 Dose: 10 mg Documented by: Cyclobenzaprine HCl (Cyclobenzaprine Hcl 5 Mg Tablet) 5 mg PO BID PRN PRN Reason: back pain Dextrose (Dextrose 50 % 25 Gm/50 Ml Vial) 25 gm IVPUSH Q15M PRN; Protocol PRN Reason: per Hypoglycemia Standing Ord. Docusate Sodium (Docusate Sodium 100 Mg Capsule) 100 mg PO DAILY PRN PRN Reason: Constipation Ferrous Sulfate (Ferrous Sulfate 324 Mg Tablet.) 324 mg PO DAILY [facility] Last Admin: 07/09/21 07:38 Dose: 324 mg Documented by: Gabapentin (Gabapentin 600 Mg Tablet) 1,200 mg PO BID [facility] Last Admin: 07/09/21 07:38 Dose: 1,200 mg Documented by: Glucose (Glucose Gel 15 Gm Gel..Gram.) 15 gm PO Q15M PRN; Protocol PRN Reason: per Hypoglycemia Standing Ord. Heparin Sodium (Porcine) (Heparin Sodium,Porcine 5,000 Unit/Ml Vial) 5,000 unit SUBCUT Q12H [facility] Last Admin: 07/08/21 22:59 Dose: 5,000 unit Documented by: Levofloxacin (Levaquin) 750 mg in 150 mls @ 100 mls/hr IV Q48H [facility] Last Infusion: 07/08/21 22:59 Dose: Infused Documented by: Daptomycin 970 mg/ Sodium (Chloride) 69.4 mls @ 100 mls/hr IV Q24H [facility] Last Infusion: 07/08/21 23:52 Dose: Infused Documented by: Insulin Human Lispro (Insulin Lispro 100 Unit/Ml 3 Ml Vial) 0 unit SUBCUT QIDACHS [facility]; Protocol Last Admin: 07/09/21 07:37 Dose: 2 unit Documented by: Morphine Sulfate (Morphine Sulfate 4 Mg/Ml Cartridge) 4 mg IVPUSH Q4H PRN; Protocol PRN Reason: Pain, Severe (Pain Scale 7-10) Last Admin: 07/08/21 20:53 Dose: 4 mg Documented by: Omeprazole (Omeprazole 40 Mg Capsule.Dr) 40 mg PO DAILY@0630 [facility] Last Admin: 07/09/21 06:19 Dose: 40 mg Documented by: Ondansetron HCl (Ondansetron Hcl 4 Mg/2 Ml Vial) 4 mg IVPUSH Q8H PRN PRN Reason: Nausea and Vomiting Sodium Chloride (0.9 % Sodium Chloride Flush 3 Ml Syringe) 3 ml IVFLUSH QSHIFT [facility] Last Admin: 07/09/21 07:37 Dose: 3 ml Documented by: Tizanidine HCl (Tizanidine Hcl 4 Mg Tablet) 2 mg PO TID PRN PRN Reason: muscle spasticity Vitamin D (Cholecalciferol (Vitamin D3) 25 Mcg Tablet) 50 mcg PO DAILY [facility] Last Admin: 07/09/21 07:37 Dose: 50 mcg Documented by: Home Medications Medication Instructions Recorded Confirmed Last Taken Type allopurinol 100 mg tablet 100 mg PO DAILY 04/29/20 07/07/21 Unknown History blood sugar diagnostic #10 ea 04/29/20 06/14/21 Unknown History ferrous sulfate 324 mg (65 mg 324 mg PO DAILY 10/08/20 07/07/21 Unknown History iron) tablet,delayed release cholecalciferol (vitamin D3) 50 50 mcg PO DAILY 02/16/21 07/07/21 Unknown History mcg (2,000 unit) capsule insulin lispro 200 unit/mL (3 mL) See Protocol SUBCUT TIDAC 04/16/21 07/07/21 Unknown History subcutaneous pen (Humalog KwikPen U-200 Insulin) Physical Exam Vital Signs: Last Vital Signs Temp 98.2 F 07/09/21 07:35 Pulse 81 07/09/21 07:35 Resp 17 07/09/21 07:35 BP 157/92 H 07/09/21 07:35 Pulse Ox 99 07/09/21 07:35 BMI result Body Mass Index 39.7 Const General: cooperative and no acute distress Orientation/consciousness: patient oriented x3 Eyes General: appearance normal, both eyes and all related structures Pupils: Equal, round and reactive pupils present Resp Effort & Inspection: normal respiratory effort Auscultation: clear to auscultation bilaterally Cardio Rate: regular rate Rhythm: regular rhythm GI Palpation (GI): Soft to palpation and nontender Auscultation: normal bowel sounds Back/Spine/Pelvis Cervical Spine: normal cervical lordosis Pelvis: no pain with lateral compression Sacroiliac joints: bilaterally Skin General skin exam: no rashes or lesions noted Neuro Other: pain lower back General: patient oriented x3 and CN's II-XI intact bilaterally Cranial nerves: Yes Equal, round and reactive pupils present Cognition (Neuro): normal cognition Extrem Other: right below-knee amputation General: Yes normal to inspection and Yes no pedal edema Results Lab Results Result Diagrams: 07/09/21 09:42 07/09/21 09:42 Lab results: Chemistry 07/06/21 07/07/21 07/09/21 12:56 06:13 09:42 Sodium 138 138 137 Potassium 4.5 4.3 4.9 Carbon Dioxide 24 20 L 23 BUN 53 H 41 H 40 H Creatinine 2.61 H 2.05 H 2.42 H Calcium 9.4 8.9 9.3 Hematology 07/06/21 07/07/21 07/09/21 12:57 06:13 09:42 WBC 9.3 7.5 9.1 Hgb 12.0 L 12.4 L 12.1 L Plt Count 261 196 256 D Urinalysis 07/07/21 07:23 Urine Color STRAW Urine Appearance CLEAR Urine pH 5.5 Ur Specific [place] 1.020 Urine Protein 2+ H Urine Glucose (UA) 100 H Urine Ketones NEG Urine Blood TRACE Urine Nitrite NEG Ur Leukocyte Esterase NEG Urine RBC 0 Urine WBC 0-2 Ur Squamous Epith Cells NONE Assessment and Plan (1) Acute kidney injury superimposed on CKD: Status: Acute (2) Osteomyelitis of lumbar spine: Status: Acute 56 yo man with CKD3 with superimposed VERONICA VERONICA has resolved Creatinine close to baseline At risk for progression to ESRD Prefer to avoid PICC line unless it is a life saving measure Consider alternatives like Alexander etc Optimize Blood Pressure Adjust all medications to GFR of 50 Avoid nephrotoxins Procedures Date of Service Date of Service: 07/09/21
[2021-07-09 11:29] LABS: Glucose, Whole Blood 166 mg/dL (60-115)
--- NOTE | 2021-07-09 13:01 | PM.DS ---
DS: Providers Provider Date of Service: 07/10/21 Date of admission: 07/06/21 22:53 Primary care physician: Shereen Cortes MD Consults: 07/06/21 21:13 Consult to Infectious Diseases Routine Consulting Provider: Leslie Garrido Reason for consultation: Osteomyelitis Has provider been notified: Yes 07/06/21 22:52 Consult to Infectious Diseases Routine Consulting Provider: Leslie Garrido Reason for consultation: osteomyelitis Has provider been notified: No 07/08/21 11:52 Consult to Nephrology Routine Consulting Provider: Felipe Jennings Reason for consultation: patient has ckd -need nephro clearnce for picc line for antibiotics Has provider been notified: No DS: Diagnosis Discharge Diagnosis (1) VERONICA (acute kidney injury): Status: Acute (2) Osteomyelitis of lumbar spine: Status: Acute DS: Summary Hospital Course Hospital Course: Date of service and discharge:07/10/21: 56-year-old male with past medical history of? diabetes, celiac disease, CKD, hyperlipidemia, gastroparesis, history of osteomyelitis with below-knee amputation, hypertension, depression, morbid obesity, peripheral vascular disease, presents to the hospital after being sent by ID for IV antibiotics.? Patient was diagnosed with osteomyelitis of the lumbar spine in May, he was seen by infectious disease last week? and was asked to come to the hospital for IV antibiotic but patient had a wedding ? to attend and therefore did not, until today.? Patient reports back pain, radiating to the left leg, he denies any numbness or tingling, he is having difficulty ambulating due to the pain but denies any weakness.? He reports no fever or chills, no chest pain, no shortness of breath, no abdominal pain nausea or vomiting, no diarrhea constipation, no urinary symptoms no lower extremity edema.? On arrival to the ED patient hemodynamically stable with no significant abnormal vitals except for a slightly elevated blood pressure Labs are significant for WBC count of 9.3, hemoglobin of 12, ESR of 87, BUN of 53, creatinine of 2.6 with a baseline? around 2.04, CRP of 2.08, ?lumbar spine CT shows no evidence of epidural abscess, it shows endplate sclerosis at L3-L4 disc level, there are subchondral cystic changes along the endplate of L2-L3 vertebrae, no lytic process seen to suspect any active osteomyelitis at this time. ? Dr. Garrido would like pt admitted and treated with Dapto and levoquin with assessment in AM. Hopsital course: Patient came to the hospital because of spinal osteomyelitis- MRI done and seen by infectious disease: Patient was started on IV antibiotics seems improving- says his back pain seems improving- infectious Disease recommended 6 weeks of IV antibiotics- further management outpatient as per PCP and ID. Patient is to follow-up CBC, CPK, renal function and electrolytes Q weekly while on antibiotics. patient had mild VERONICA on CKD stage 3 which improved with hydration. Patient was advised to hydrate well. ckd: His creatinine is fluctuating between 2-2.4 range- discussed with Nephrology monitor about patient BMP, also outpatient Nephro follow-up. Above management discussed with the patient in detail length he understand and in agreement with the above plan, time spent 50 minutes and 50% time spent on counseling. Significant findings: As above. Procedures performed: None. Treatment and response: As above. Complications: None. Time Spent with Patient Time attestation: Total time spent providing and/or coordinating discharge services: Discharge coordination time: Greater than 30 minutes Quality: Stroke Does the patient have a stroke diagnosis?: No Physical Exam Vital Signs: Vital Signs: Last Vital Signs Temp 97.8 F 07/09/21 11:25 Pulse 87 07/09/21 11:25 Resp 16 07/09/21 11:25 BP 138/88 07/09/21 11:25 Pulse Ox 95 07/09/21 11:25 BMI result Body Mass Index 39.7 ?Alert.? Oriented X3.? not in distress.? Eyes: Pupils equal, round and reactive to light.? Sclera nonicteric.? cvs: rrr, [id number] , no murmur res: clear to auscultation ,no rhonchii or wheezing abd: no rebound or guarding ,nt, bs present. ext pulses present , no cyanosis , right bka . back pain seems improved significantly neuro: axo3 , nonfoca DS: Data Data Completed and Pending Labs on day of discharge: Laboratory Results - last 24 hr 07/08/21 07/08/21 07/09/21 15:43 19:52 07:26 WBC RBC Hgb Hct MCV MCH MCHC RDW Plt Count MPV Absolute Nucleated RBC Nucleated RBC % (auto) Sodium Potassium Chloride Carbon Dioxide Anion Gap BUN Creatinine Estim Creat Clear Calc Estimated GFR POC Glucose 167 H 208 H 153 H Random Glucose Calcium 07/09/21 07/09/21 07/09/21 09:42 09:42 11:20 WBC 9.1 RBC 4.09 L Hgb 12.1 L Hct 36.4 L MCV 89.0 MCH 29.6 MCHC 33.2 RDW 14.4 Plt Count 256 D MPV 10.0 Absolute Nucleated RBC 0.000 Nucleated RBC % (auto) 0.0 Sodium 137 Potassium 4.9 Chloride 106 Carbon Dioxide 23 Anion Gap 13 BUN 40 H Creatinine 2.42 H Estim Creat Clear Calc 47.8 Estimated GFR 28 POC Glucose 166 H Random Glucose 216 H Calcium 9.3 Preliminary micro results at discharge 07/06/21 12:56 Blood Culture - Preliminary Blood - Venous No growth after 48 hours. 07/06/21 12:56 Blood Culture - Preliminary Blood - Venous No growth after 48 hours. Discharge Plan Discharge Patient Disposition: Home Health Service Discharge Diagnosis: Osteomyelitis of spine. Referrals: Shereen Cortes MD [Primary Care Provider] - 1 Week Leslie Garrido MD [Physician] - 1 Week (follow up Out patiently.) Felipe Jennings MD [Physician] - 1 Week ( Follow up outpatient.) Discharge Medications: New daptomycin 500 mg Recon Soln 970 mg IV Q24H Qty: 39 RF: 0 levofloxacin 750 mg tablet 750 mg PO Q48H Qty: 22 RF: 0 Continued (DME) power wheellchair See Rx Instructions .Route .MEDSUPPLY Qty: 1 RF: 0 gabapentin 600 mg tablet 1,200 mg PO BID Qty: 60 RF: 0 amlodipine 10 mg tablet 10 mg PO DAILY Qty: 30 RF: 3 omeprazole 40 mg capsule,delayed release(DR/EC) 40 mg PO QAM Qty: 30 RF: 4 atorvastatin 10 mg tablet 10 mg PO DAILY Qty: 30 RF: 5 (DME) FreeStyle Juanito 14 Day Sensor Kit See Rx Instructions .Route Qty: 2 RF: 0 ferrous sulfate 324 mg (65 mg iron) tablet,delayed release (DR/EC) 324 mg PO DAILY RF: 0 cholecalciferol (vitamin D3) 50 mcg (2,000 unit) capsule 50 mcg PO DAILY RF: 0 Humalog KwikPen Insulin 200 unit/mL (3 mL) insulin pen See Protocol unit subcut TIDAC RF: 0 allopurinol 100 mg tablet 100 mg PO DAILY RF: 0 (DME) FreeStyle Lite Strips Strip See Rx Instructions ea Not Applicable .MEDSUPPLY Qty: 10 RF: 0 tizanidine 2 mg tablet 2 mg PO TID PRN (Reason: muscle spasticity) Qty: 90 RF: 0 Discharge Orders: Discharge Order (Routine); Ordered 07/09/21 Ordered By: Lisa Hoskins Diet: advance to usual diet Activity on Discharge: As tolerated Stand Alone Forms: Patient Portal Discharge page Other Ambulatory Orders: Basic Metabolic Panel Fasting (Routine) Timeframe: 1 Week Facility: [facility] - Location: Laboratory Ordered By: Lisa Hoskins Complete Blood Count no Diff (Routine) Timeframe: 1 Week Facility: [facility] - Location: Laboratory Ordered By: Lisa Hoskins Creatine Kinase Total (Routine) Timeframe: 1 Week Facility: [facility] - Location: Laboratory Ordered By: Lisa Hoskins Care Plan Goals: Patient came to the hospital because of spinal osteomyelitis- MRI done and seen by infectious disease: Patient was started on IV antibiotics seems improving- says his back pain seems improving- infectious Disease recommended 6 weeks of IV antibiotics- further management outpatient as per PCP and ID. Patient is to follow-up CBC, CPK, renal function and electrolytes Q weekly while on antibiotics. patient had mild VERONICA on CKD stage 3 which improved with hydration. Patient was advised to hydrate well. Health Concerns: As above. Plan of Treatment: As above. Assessment: As above.
--- NOTE | 2021-07-09 13:06 | HO.PM.IMPN ---
Subjective Subjective Date of Service: 07/09/21 Interval History: spine osteomyelitis Review of Systems back pain seems to be improved significantly denies any chest pain or shortness breath or abdominal pain or chills or phlegm. Physical Exam Vital Signs: Vital Signs: Last Vital Signs Temp 97.8 F 07/09/21 11:25 Pulse 87 07/09/21 11:25 Resp 16 07/09/21 11:25 BP 138/88 07/09/21 11:25 Pulse Ox 95 07/09/21 11:25 BMI result Body Mass Index 39.7 Appearance: Alert.? Oriented X3.? not in distress.? Eyes: Pupils equal, round and reactive to light.? Sclera nonicteric.? cvs: rrr, [id number] , no murmur res: clear to auscultation ,no rhonchii or wheezing abd: no rebound or guarding ,nt, bs present. ext pulses present , no cyanosis , right bka . back pain seems improving significantly neuro: axo3 , nonfocal Objective Data Active Medications Acetaminophen (Acetaminophen 325 Mg Tablet) 650 mg PO Q6H PRN PRN Reason: Pain, Mild (Pain Scale 1-3) Last Admin: 07/07/21 04:06 Dose: 650 mg Documented by: SCARLET Allopurinol (Allopurinol 100 Mg Tablet) 100 mg PO DAILY [facility] Last Admin: 07/09/21 07:37 Dose: 100 mg Documented by: NICKY Amlodipine Besylate (Amlodipine Besylate 10 Mg Tablet) 10 mg PO DAILY [facility]; Protocol Last Admin: 07/09/21 07:37 Dose: 10 mg Documented by: NICKY Atorvastatin Calcium (Atorvastatin Calcium 10 Mg Tablet) 10 mg PO DAILY [facility] Last Admin: 07/09/21 07:37 Dose: 10 mg Documented by: NICKY Cyclobenzaprine HCl (Cyclobenzaprine Hcl 5 Mg Tablet) 5 mg PO BID PRN PRN Reason: back pain Dextrose (Dextrose 50 % 25 Gm/50 Ml Vial) 25 gm IVPUSH Q15M PRN; Protocol PRN Reason: per Hypoglycemia Standing Ord. Docusate Sodium (Docusate Sodium 100 Mg Capsule) 100 mg PO DAILY PRN PRN Reason: Constipation Ferrous Sulfate (Ferrous Sulfate 324 Mg Tablet.) 324 mg PO DAILY [facility] Last Admin: 07/09/21 07:38 Dose: 324 mg Documented by: NICKY Gabapentin (Gabapentin 600 Mg Tablet) 1,200 mg PO BID [facility] Last Admin: 07/09/21 07:38 Dose: 1,200 mg Documented by: NICKY Glucose (Glucose Gel 15 Gm Gel..Gram.) 15 gm PO Q15M PRN; Protocol PRN Reason: per Hypoglycemia Standing Ord. Heparin Sodium (Porcine) (Heparin Sodium,Porcine 5,000 Unit/Ml Vial) 5,000 unit SUBCUT Q12H [facility] Last Admin: 07/09/21 11:54 Dose: Not Given Documented by: NICKY Non-Admin Reason: Physician Held Med Levofloxacin (Levaquin) 750 mg in 150 mls @ 100 mls/hr IV Q48H [facility] Last Infusion: 07/08/21 22:59 Dose: 0 mls/hr Documented by: TATYANA Daptomycin 970 mg/ Sodium (Chloride) 69.4 mls @ 100 mls/hr IV Q24H [facility] Last Infusion: 07/08/21 23:52 Dose: 0 mls/hr Documented by: SILVIA Insulin Human Lispro (Insulin Lispro 100 Unit/Ml 3 Ml Vial) 0 unit SUBCUT QIDACHS [facility]; Protocol Last Admin: 07/09/21 11:55 Dose: Not Given Documented by: NICKY Non-Admin Reason: NPO Morphine Sulfate (Morphine Sulfate 4 Mg/Ml Cartridge) 4 mg IVPUSH Q4H PRN; Protocol PRN Reason: Pain, Severe (Pain Scale 7-10) Last Admin: 07/08/21 20:53 Dose: 4 mg Documented by: TATYANA Omeprazole (Omeprazole 40 Mg Capsule.Dr) 40 mg PO DAILY@0630 [facility] Last Admin: 07/09/21 06:19 Dose: 40 mg Documented by: SILVIA Ondansetron HCl (Ondansetron Hcl 4 Mg/2 Ml Vial) 4 mg IVPUSH Q8H PRN PRN Reason: Nausea and Vomiting Sodium Chloride (0.9 % Sodium Chloride Flush 3 Ml Syringe) 3 ml IVFLUSH QSHIFT [facility] Last Admin: 07/09/21 07:37 Dose: 3 ml Documented by: NICKY Tizanidine HCl (Tizanidine Hcl 4 Mg Tablet) 2 mg PO TID PRN PRN Reason: muscle spasticity Vitamin D (Cholecalciferol (Vitamin D3) 25 Mcg Tablet) 50 mcg PO DAILY [facility] Last Admin: 07/09/21 07:37 Dose: 50 mcg Documented by: NICKY Labs CBC & Chem 7: 07/09/21 09:42 07/09/21 09:42 Labs: Laboratory Results - last 24 hr 07/08/21 07/08/21 07/09/21 15:43 19:52 07:26 MCV MCH MCHC RDW Plt Count MPV Absolute Nucleated RBC Nucleated RBC % (auto) Anion Gap Estim Creat Clear Calc Estimated GFR POC Glucose 167 H 208 H 153 H Random Glucose Calcium 07/09/21 07/09/21 07/09/21 09:42 09:42 11:20 MCV 89.0 MCH 29.6 MCHC 33.2 RDW 14.4 Plt Count 256 D MPV 10.0 Absolute Nucleated RBC 0.000 Nucleated RBC % (auto) 0.0 Anion Gap 13 Estim Creat Clear Calc 47.8 Estimated GFR 28 POC Glucose 166 H Random Glucose 216 H Calcium 9.3 Microbiology Microbiology Results: Microbiology 07/06/21 12:56 Blood Culture - Preliminary Blood - Venous No growth after 48 hours. 07/06/21 12:56 Blood Culture - Preliminary Blood - Venous No growth after 48 hours. Assessment and Plan (1) VERONICA (acute kidney injury): Status: Acute (2) Osteomyelitis of lumbar spine: Status: Acute Assessment and Plan: 56-year-old male with multiple? past medical history is including diabetes who presents to the hospital with osteomyelitis of the lumbar spine sent by Infectious to 1.lumbar spine osteomyelitis-? acute versus chronic: ? seen by infectious disease last week with MRI showing osteomyelitis of the lumbar spine, recommended to be admitted for IV antibiotics by Infectious? disease. no evidence of neurological deficit continue ? daptomycin and levofloxacin ordered, culture pending ?discussed with ID blood culture preliminary negative at 24 hours, id recommended 6 weeks of IV? daptomycin/Levaquin, After discussion with the Nephro and IR - recommended for Alexander catheter, 2. VERONICA on ckd stage 3. ?improved to baseline. ? Off IV fluids 3.? diabetes: fs flactauating -? low-dose? sliding scale insulin, continue home? insulin, diabetic diet 4. Htn -? elevated started home? medication 5. hyperlipidemia -? continue statin patient's VNA / medication needs to be arranged for discharge is pending . ?DVT prophylaxis:? Heparin subQ Quality Stroke Does the patient have a stroke diagnosis?: No VTE Prior VTE?: No VTE Risk Level:: Medical - moderate - high VTE Device Contraindication: Treatment Not Indicated VTE Drug Contraindication: N/A - Med Ordered
--- NOTE | 2021-07-09 14:35 | MHC.CM.PN ---
[facility]ON ([phone]) AWARE OF DISCHARGE PLAN. [facility] WILL START SERVICE ON Tuesday07/11/2021 @ 1300. PATIENT'S MEDICATION WILL BE DELIVERED BY TUESDAY [facility].
[2021-07-09] MEDS: Lidocaine HCl 1 % 20 ML VIAL 5 ML INFILTRATI (15:00)
[2021-07-09 16:25] LABS: Glucose, Whole Blood 136 mg/dL (60-115)
[2021-07-09 20:00] LABS: Glucose, Whole Blood 208 mg/dL (60-115)
[2021-07-09] MEDS: Morphine Sulfate 4 MG/ML CARTRIDGE IVPUSH (20:28)
[2021-07-09] MEDS: Heparin Sodium,Porcine 5,000 UNIT/ML VIAL 5000 UNIT SUBCUT (22:51)
[2021-07-10] VITALS: BP 140/91; PULSE 82; RESP 17; TEMP 36.9; O2SAT 95
[2021-07-10 04:00] VITALS: BP 112/60; PULSE 85; RESP 17; TEMP 36.9; O2SAT 94
[2021-07-10] MEDS: Omeprazole 40 MG CAPSULE.DR PO (05:23)
[2021-07-10 07:54] LABS: Glucose, Whole Blood 147 mg/dL (60-115)
[2021-07-10 08:00] VITALS: BP 159/87; PULSE 82; RESP 20; TEMP 36.8; O2SAT 97
[2021-07-10] MEDS: Ferrous Sulfate 324 MG TABLET.DR PO (09:00)
[2021-07-10] MEDS: Cholecalciferol (Vitamin D3) 25 MCG TABLET 50 MCG PO (09:00)
[2021-07-10] MEDS: amLODIPine Besylate 10 MG TABLET PO (09:00)
[2021-07-10] MEDS: Gabapentin 600 MG TABLET 1200 MG PO (09:01)
[2021-07-10] MEDS: allopurinoL 100 MG TABLET PO (09:01)
[2021-07-10] MEDS: Atorvastatin Calcium 10 MG TABLET PO (09:01)
[2021-07-10] MEDS: 0.9 % Sodium Chloride Flush 3 ML SYRINGE IVFLUSH (09:02)
[2021-07-10] MEDS: Lactated Ringers 1,000 ML 100 ML IVCONT (09:02)
--- NOTE | 2021-07-10 11:15 | P.PNNP_ITS ---
Subjective Subjective Date of Service: 07/10/21 Interval history: s/p Alexander Physical Exam Vital Signs: Vital Signs: Last Vital Signs Temp 98.2 F 07/10/21 08:00 Pulse 82 07/10/21 08:00 Resp 20 07/10/21 08:00 BP 159/87 H 07/10/21 08:00 Pulse Ox 97 07/10/21 08:00 BMI result Body Mass Index 39.7 Const: General: cooperative and no acute distress Orientation/co nsciousness: patient oriented x3 Eyes: General: appearance normal, both eyes and all related structures Pupils: Equal, round and reactive pupils present Resp: Effort & Inspection: normal respiratory effort Auscultation: clear to auscultation bilaterally Cardio: Rate: regular rate Rhythm: regular rhythm GI: Palpation (GI): Soft to palpation and nontender Auscultation: normal bowel sounds Back/Spine/Pelvis: Cervical Spine: normal cervical lordosis Pelvis: no pain with lateral compression Sacroiliac joints: bilaterally Skin: General skin exam: no rashes or lesions noted Neuro: Other: pain lower back General: patient oriented x3 and CN's II-XI intact bilaterally Cranial nerves: Yes Equal, round and reactive pupils present Cognition (Neuro): normal cognition Extrem: Other: right below-knee amputation General: Yes normal to inspection and Yes no pedal edema Objective Data Labs CBC & Chem 7: 07/09/21 09:42 07/09/21 09:42 Labs: Laboratory Results - last 24 hr 07/09/21 07/09/21 07/09/21 11:20 16:19 19:55 POC Glucose 166 H 136 H 208 H 07/10/21 07:34 POC Glucose 147 H Microbiology Microbiology Results: Microbiology 07/06/21 12:56 Blood - Venous Blood Culture - Preliminary No growth after 48 hours. 07/06/21 12:56 Blood - Venous Blood Culture - Preliminary No growth after 48 hours. Procedures Date of Service Date of Service: 07/10/21 Assessment & Plan Assessment and plan (1) Acute kidney injury superimposed on CKD: Status: Acute (2) Osteomyelitis of lumbar spine: Status: Acute Assessment and Plan: 56 yo man with CKD3 with superimposed VERONICA VERONICA has resolved Creatinine fluctuates KeepI > O At risk for progression to ESRD avoid PICC line unless it is a life saving measure OK with Alexander Optimize Blood Pressure Adjust all medications to GFR of 50 Avoid nephrotoxins DC planning Will arange for f/u with Time Spent With Patient Time: Total time spent is greater than 50% in coordination of care (as documented) at patient's floor/unit and/or counseling patient: Time with patient: 15 - 24 minutes Progress Note: Quality Stroke Does the patient have a stroke diagnosis?: No
[2021-07-10 11:29] LABS: Glucose, Whole Blood 223 mg/dL (60-115)
--- NOTE | 2021-07-10 11:45 | W.MHC.F2F ---
Service Date Service Date: 07/10/21 Encounter Date of encounter: 07/10/21 Encounter: Spinal osteomyelitis, CKD Reasons for Services Signs and symptoms assessed: back pain, CKD Reason for halfway: administration of IV, SQ, or IM injection, medication management, medication treatment and teach disease management MD Overseeing Care: Shereen Cortes Homebound: Leaving the home is medically contraindicated at this time without the asist of a device and/or another person due th the listed conditions above and below. Reason homebound: weakness related to hospital stay Homebound supporting statement: patient has multiple comorbidities including CKD, also has spinal osteomyelitis - need help with IV infusion of antibiotic as well as labs monitoring. Certification: Based on the above findings, I certify that this patient is confined to the home and needs intermittent halfway care, physical therapy and/or speech therapy, or continues to need occupational therapy. The patient is under my care, and I have initiated the establishment of the plan of care. The patient will be followed by a physician who will periodically review the plan of care.
[2021-07-10] MEDS: Insulin Lispro 100 UNIT/ML 3 ML VIAL SUBCUT ×2 (11:46→16:52)
[2021-07-10] MEDS: Heparin Sodium,Porcine 5,000 UNIT/ML VIAL 5000 UNIT SUBCUT (11:49)
[2021-07-10 12:00] VITALS: BP 173/92; PULSE 93; RESP 20; TEMP 36.7; O2SAT 97
--- NOTE | 2021-07-10 12:39 | MHC.CM.PN ---
PATIENT TO RETURN HOME TONIGHT WITH [facility]. IMM 07/08 IN CHART TO PROVIDE TRANSPORT AFTER HIS ABX DOSE IS INFUSED
[2021-07-10 15:16] LABS: Anion Gap 16 (12-20); Blood Urea Nitrogen 44 mg/dL (9-16); Calcium 8.9 mg/dL (8.4-10.2); Carbon Dioxide 17 mmol/L (22-29); Chloride 109 mmol/L (96-108); Creatinine Clr Calc Pharmacy 47.6; Estimated Glomerular Filt Rate 28; Glucose Random 192 mg/dL (60-115); Potassium 4.8 mmol/L (3.3-5.1); Sodium 137 mmol/L (135-145)
[2021-07-10 15:45] VITALS: BP 179/95; PULSE 87; RESP 18; TEMP 37.1; O2SAT 99
[2021-07-10 16:36] LABS: Glucose, Whole Blood 166 mg/dL (60-115)
--- NOTE | 2021-07-11 15:09 | MHC.CM.PN ---
CM RECEIVED A CALL FROM PT'S SHON WHO REPORTED [facility] HADN'T SHOWN UP AND WERE CLAIMING THEY DID NOT HAVE A REFERRLA FOR PT, WHILE DARRYL WAS ON PHONE W/SHON SHE REPORTED [facility] WAS CALLING HER BACK AND HUNG UP TO SPEAK WITH THEM, CM SPOKE W/PREVIOUS CM WHO REPORTED PT WAS HELD AN ADDITIONAL DAY D/T [facility] NOT BEING ABLE TO SEE PT UNTIL 1PM TODAY, DARRYL CALLED PT'S BACK SHON [phone] AT 3:18PM AND PER A NURSE FROM [facility] DID WALK [facility] AND WILL BE ABLE TO DO SOC TOMORROW 07/12/21. SHON HAS CM CONTACT INFO IF THEY HAVE ANY OTHER ISSUES.
== END 2021-07-10 17:30 | disposition home health service (06) | DRG 638 ==
LOC: HO.ED 22:33 → HO.EDOVER 23:01 → HO.S3 07-07 08:53
PROVIDERS: Physician Assistant; Radiology Diagnostic Radiology; Admitting Provider Internal Medicine; Emergency Provider Internal Medicine; PCP Internal Medicine; Visit Provider Internal Medicine
PROC: 0JH63XZ Insertion of Tunneled Vascular Access Device into Chest Subcutaneous Tissue and Fascia, Percutaneous Approach (ICD-10-PCS; principal; 2021-07-09 14:00)
DX: E11.69 Type 2 diabetes mellitus with other specified complication (principal); M46.26 Osteomyelitis of vertebra, lumbar region; N17.9 Acute kidney failure, unspecified; K90.0 Celiac disease; I12.9 Hypertensive chronic kidney disease with stage 1 through stage 4 chronic kidney disease, or unspecified chronic kidney disease; E11.22 Type 2 diabetes mellitus with diabetic chronic kidney disease; E78.5 Hyperlipidemia, unspecified; N18.30 Chronic kidney disease, stage 3 unspecified; E11.40 Type 2 diabetes mellitus with diabetic neuropathy, unspecified; E66.01 Morbid (severe) obesity due to excess calories; Z68.39 Body mass index [BMI] 39.0-39.9, adult; Z20.822 Contact with and (suspected) exposure to COVID-19; Z79.4 Long term (current) use of insulin; Z79.899 Other long term (current) drug therapy
CPT/HCPCS: 36415; 36558; 72131; 72158; 76937; 80048; 80076; 81001; 82550; 82947; 83605; 83735; 85025; 85027; 85610; 85652; 85730; 86140; 87040; 87635; 99152; 99153; 99202; 99285; A9585; C1751; C1769; J0878; J1956; J2270

== ENCOUNTER → 2021-07-14 11:25 | Outpatient (BNVA) | payer MEDICARE, MEDICAID, SELFPAY | PROVIDERS: PCP Internal Medicine; Visit Provider Internal Medicine | DX: M46.26 Osteomyelitis of vertebra, lumbar region (principal) | CPT/HCPCS: 99212 ==

== ENCOUNTER 2021-07-21 12:46 | Outpatient (REF) | payer MEDICARE, MEDICAID, SELFPAY ==
--- NOTE | ~2021-07-21 | XR_ITS ---
EXAMINATION: XR HIP, LEFT CLINICAL INFORMATION: Fall COMPARISON: None TECHNIQUE: Two views of the left hip. FINDINGS: Bones and soft tissues are normal. No fracture. Alignment is anatomic. Hip joint space is maintained. XR/XR hip LT min 2V IMPRESSION: Normal left hip.
== END 2021-07-21 12:47 | disposition home or self-care (01) ==
LOC: HO.HMGCX 12:46
PROVIDERS: PCP Internal Medicine; Visit Provider Internal Medicine
DX: M25.552 Pain in left hip (principal); Z91.81 History of falling
CPT/HCPCS: 73502

== ENCOUNTER → 2021-08-04 11:56 | Outpatient (BNVA) | payer MEDICARE, MEDICAID, SELFPAY | PROVIDERS: PCP Internal Medicine; Visit Provider Internal Medicine | DX: M46.26 Osteomyelitis of vertebra, lumbar region (principal) | CPT/HCPCS: 99212 ==

== ENCOUNTER 2021-08-05 08:18 | Outpatient (REF) | payer MEDICARE, MEDICAID, SELFPAY ==
[2021-08-05 11:27] LABS: Hematocrit 37.8 % (42.0-52.0); Hemoglobin 12.5 g/dl (14.0-18.0); Mean Corpuscular HGB Conc 33.1 g/dl (31.0-36.0); Mean Corpuscular Hemoglobin 29.1 pg (27.0-33.0); Mean Corpuscular Volume 88.1 fL (80.0-98.0); Mean Platelet Volume 11.1 fL (9.4-12.4); Platelet Count 255 X10*3/uL (160-400); Red Blood Count 4.29 X10*6/uL (4.60-5.80); Red Cell Distribution Width 13.6 % (11.0-16.0); White Blood Count 9.5 X10*3/uL (4.8-10.8)
[2021-08-05 13:18] LABS: Anion Gap 14 (12-20); Carbon Dioxide 23 mmol/L (22-29); Chloride 107 mmol/L (96-108); Estimated Glomerular Filt Rate 23; Potassium 5.1 mmol/L (3.3-5.1); Sodium 139 mmol/L (135-145)
[2021-08-05 13:27] LABS: Alanine Aminotransferase 23 U/L (0-40); Anion Gap 15 (12-20); Aspartate Amino Transferase 33 U/L (5-37); Carbon Dioxide 22 mmol/L (22-29); Chloride 107 mmol/L (96-108); Cholesterol 279 mg/dL; Estimated Glomerular Filt Rate 23; Glucose Fasting 94 mg/dL (60-99); HDL Cholesterol 46 mg/dL; LDL Cholesterol Calculated 209 mg/dl; Sodium 139 mmol/L (135-145); Triglycerides 123 mg/dL
[2021-08-05 15:31] LABS: Blood Urea Nitrogen 56 mg/dL (9-16); Calcium 9.8 mg/dL (8.4-10.2)
[2021-08-05 15:33] LABS: Blood Urea Nitrogen 56 mg/dL (9-16); Calcium 9.7 mg/dL (8.4-10.2)
== END 2021-08-05 08:19 | disposition home or self-care (01) ==
LOC: HO.HMGCLDS 08:18
PROVIDERS: Internal Medicine; Absent Provider Internal Medicine; PCP Internal Medicine; Visit Provider Internal Medicine Nephrology
DX: N20.0 Calculus of kidney (principal); E78.5 Hyperlipidemia, unspecified; N17.9 Acute kidney failure, unspecified; N18.31 Chronic kidney disease, stage 3a; M46.26 Osteomyelitis of vertebra, lumbar region
CPT/HCPCS: 36415; 80048; 80051; 80061; 82310; 82550; 82565; 84450; 84460; 84520; 85027

== ENCOUNTER 2021-08-06 15:01 | Inpatient (IN) | payer MEDICARE, MEDICAID, SELFPAY ==
--- NOTE | ~2021-08-06 | CT_ITS ---
EXAMINATION: CT ABDOMEN AND PELVIS WITHOUT CONTRAST CLINICAL INFORMATION: New onset urinary retention COMPARISON: 05/31/2020 TECHNIQUE: Multidetector volumetric imaging was performed from the superior aspect of the liver through the pubic symphysis. Sagittal and coronal reformatted images were obtained on the technologist's workstation. This CT examination was performed using dose optimization techniques as appropriate, variously including the following: *Automated exposure control *Adjustment of mA and/or kV according to patient size (this includes techniques or standardized protocols for targeted exams where dose is matched to indication/reason for exam; i.e. extremities or head) *Use of iterative reconstruction technique DLP: 1184 mGy-cm FINDINGS: LUNG BASES: Mild bibasilar atelectasis. LIVER, GALLBLADDER, AND BILIARY TREE: The liver is normal in size, shape, and attenuation. No focal hepatic lesion or biliary ductal dilatation is present. The gallbladder is unremarkable with no evidence of radiopaque gallstones, gallbladder wall thickening, or obvious pericholecystic inflammatory changes. PANCREAS: Unremarkable. SPLEEN: Unremarkable. ADRENAL GLANDS: Unremarkable. KIDNEYS AND URETERS: No hydronephrosis or obstructing calculus bilaterally. Nonspecific bilateral perinephric stranding is similar to prior. Tiny hypodensity off the lower left kidney favors a cyst; no follow-up recommended. BLADDER: Decompressed with a Flores catheter. GASTROINTESTINAL TRACT: Suture line is present along the stomach. No evidence of bowel obstruction or significant wall thickening. The appendix is unremarkable. No free fluid or free air is seen. ABDOMINAL WALL: Bilateral fat-containing inguinal hernias. LYMPH NODES: Normal. VASCULAR: Mild scattered atherosclerotic calcifications. PELVIC VISCERA: Unremarkable. OSSEOUS STRUCTURES: Degenerative changes are noted in the spine. CT/CT abdomen pelvis wo con IMPRESSION: No acute findings identified in the abdomen/pelvis. Fleischner guidelines were followed.
--- NOTE | ~2021-08-06 | IR_ITS ---
PROCEDURE: IR INSERTION OF LEFT TUNNEL CATHETER REMOVAL OF RIGHT TUNNELED CATHETER CLINICAL INFORMATION: Osteomyelitis. Nonfunctioning right tunneled catheter. COMPARISON: None TECHNIQUE: Following explaining removal of right tunneled catheter and ultrasound and fluoroscopy-guided placement of new left tunneled catheter under fluoroscopy and ultrasound guidance procedure, benefits and risk, a written consent was obtained. Patient was placed supine on angiography table and preliminary ultrasound imaging was obtained to the left neck. An optimal site was selected and marked on the skin. The marked site including the entire left neck was cleaned and draped in usual sterile manner with 2% chlorhexidine solution. At the marked site 1% lidocaine was injected. Under sterile ultrasound guidance a single wall needle was advanced and right jugular vein was punctured. After obtaining venous return, a thin guidewire was advanced through the needle and needle withdrawn. A 5 Cymraes dilator sheath was placed over the guidewire and anchored to the drape. Approximately 1 gauze length from the left neck incision along the left anterior chest wall 1% lidocaine was infiltrated in the skin. A small skin incision was performed. A tunneler attached to the Alexander catheter was then tunneled from the anterior chest wall lesion to the left neck incision and the entire tunneler and the catheter were pulled. The cuff of the catheter now lies inside the tunnel. The catheter was sized. The guidewire and the dilator of the neck placement was removed and a 0.035 long J-wire was advanced from the neck incision and into the IVC under fluoroscopy guidance. The dilator was removed and a 6.6 Cymraes dilator sheath was advanced over the guidewire. The dilator and the guidewire were removed and pre sized tunnel catheter was then inserted through the peel-away sheath. The peel-away sheath was removed as the catheter was held in position. A single image was obtained documenting the position of the catheter following removal of the sheath. The catheter was flushed with saline followed by heparin. Dermabond and was placed on the suture sites for healing. The right anterior chest wall insertion site of the Alexander catheter was infiltrated 1% lidocaine following sterile cleaned and draped. Dissection was performed through this incision site and the cuff was loosened. The entire catheter with the cuff was then pulled out with no hemorrhage visualized. Dermabond was placed along the skin site for healing. All elements of maximal sterile barrier technique followed including use of cap, mask, sterile gown, sterile gloves, a sterile full body drape and hand hygiene. Also followed skin preparation with 2% chlorhexidine for cutaneous antisepsis, and sterile ultrasound preparation with sterile gel and probe cover when applicable. No conscious sedation was utilized due to the recent ingestion of food. The entire procedure was performed under copious amounts of 1% local Xylocaine. FINDINGS: On preliminary left neck ultrasound imaging, there is widely patent jugular vein. Approximately 37 cm long left tunneled Alexander catheter placement with its tip in distal SVC/caval junction. Successful removal of nonfunctioning right Alexander catheter. IR/IR cvc insert central tunnel IMPRESSION: Successful ultrasound fluoroscopy-guided 37 cm long tunneled Alexander/ProLine catheter with its tip at the atrial-caval junction. Successful removal of nonfunctioning right Alexander catheter. Fluoroscopy time: 1.7 minutes. Dose area product: 1072 cGy.cm2.
--- NOTE | ~2021-08-06 | MR_ITS ---
EXAMINATION: MR LUMBAR SPINE WITHOUT AND WITH CONTRAST CLINICAL INFORMATION: Lumbar osteomyelitis. Now with urinary retention. COMPARISON: Lumbar spine MRI 07/07/2021. TECHNIQUE: MRI of the lumbar spine was obtained using routine sequences without and with intravenous contrast. A total of 10 mL Gadavist was intravenously administered. FINDINGS: Evolving discitis osteomyelitis is again demonstrated at the L2-L3 level with subchondral erosive changes and diffuse marrow edema and enhancement seen throughout the L2 and L3 vertebral bodies. The destructive endplate changes appear similar compared with 07/07/2021. Epidural phlegmon is seen along the posterior aspect of the L3 vertebral body extending to the L2-L3 disc level without significant change from prior. The phlegmon deforms the ventral thecal sac causing moderate spinal canal stenosis with ventral thecal sac compression which appears stable compared with prior. No epidural abscess is seen. Edema within the right L2 and L3 pedicles stable from prior. Mild edema and enhancement about the facet joints is also stable. Edema and enhancement is seen within the right psoas muscle compatible with phlegmon/inflammation. No drainable psoas collection is seen. Spondylotic changes lumbar spine are again demonstrated without interval progression compared with the recent prior. Disc bulging at L2-L3 with inferiorly migrated extrusion component also contributes to the overall degree of spinal canal stenosis at this level. No further high-grade narrowing of the spinal canal is seen. MR/MR lumbar spine wo/w con IMPRESSION: Redemonstration of discitis osteomyelitis centered at the L2-L3 level. No definite progression compared with 07/07/2021. Epidural phlegmon at the L3 level appears stable from prior and results in moderate spinal canal stenosis with compression of the ventral thecal sac. No drainable epidural collection is seen. Edema and enhancement within the right psoas muscle is again demonstrated without drainable collection.
[2021-08-06 16:01] VITALS: BP 120/77; PULSE 84; RESP 18; TEMP 36.7; O2SAT 97; BMI 39.0
--- NOTE | 2021-08-06 16:22 | ED.GENADULT ---
HPI - General Adult General Chief complaint: Nausea/Vomiting/Diarrhea Stated complaint: dehydration,n +v Time Seen by Provider: 08/06/21 16:11 Source: patient Mode of arrival: ambulatory Limitations: no limitations History of Present Illness HPI narrative: 56-year-old male with past medical history of poorly controlled diabetes on inuling, PVD s/p left BKA ,celiac, morbid obesity, diabetic gastroparesis, HTN, HLD, presents to the emergency department with inability to flush port, urinary retention and nausea and vomiting since this AM. Patient is being treated for osteomyelitis of the spine by Dr. Garrido, he is receiving daptomycin and Levaquin . He tells me any time he tries to eat something or drink a protein shake that he immediately vomits. He reports diffuse abdominal discomfort. Patient denies fevers, chills, chest pain, shortness of breath, back pain, paresthesis, numbness, rash, back pain, IVDA. Onset (ago): day(s) (1) Location: chest, abdomen and right Radiation: non-radiation Severity: moderate Quality: constant Pain Consistency: constant Relieving factors: none Exacerbating factors: other (eating ) Associated symptoms: nausea/vomiting Treatments prior to arrival: none Related Data Home Medications Medication Instructions Recorded Confirmed allopurinol 100 mg tablet 100 mg PO DAILY 04/29/20 07/07/21 blood sugar diagnostic #10 ea 04/29/20 06/14/21 ferrous sulfate 324 mg (65 mg 324 mg PO DAILY 10/08/20 07/07/21 iron) tablet,delayed release cholecalciferol (vitamin D3) 50 50 mcg PO DAILY 02/16/21 07/07/21 mcg (2,000 unit) capsule insulin lispro 200 unit/mL (3 mL) See Protocol SUBCUT TIDAC 04/16/21 07/07/21 subcutaneous pen (Humalog KwikPen U-200 Insulin) Previous Rx's Medication Instructions Recorded gabapentin 600 mg tablet 1,200 mg PO BID #60 tab 07/08/20 amlodipine 10 mg tablet 10 mg PO DAILY #30 tab 01/26/21 flash glucose sensor (FreeStyle #2 ea 04/24/21 Juanito 14 Day Sensor) daptomycin 500 mg intravenous 970 mg IV Q24H #39 ea 07/09/21 solution levofloxacin 750 mg tablet 750 mg PO Q48H #22 tab 07/09/21 omeprazole 40 mg capsule,delayed 40 mg PO QAM #90 cap 07/21/21 release atorvastatin 10 mg tablet 10 mg PO DAILY #30 tab 07/28/21 oxycodone 5 mg tablet 5 mg PO BID PRN #14 tab 08/05/21 Allergies Allergy/AdvReac Type Severity Reaction Status Date / Time cephalexin [CEPHALEXIN] Allergy Intermediate UNABLE TO Verified 08/06/21 13:54 MOVE ENTIRE BODY, chills and fever, nausea, chills, fever, and nausea vancomycin [VANCOMYCIN] Allergy Intermediate ITCHY,HIVES, Verified 08/06/21 13:54 nausea and vomiting metformin [METFORMIN] AdvReac Intermediate ADVISED Verified 08/06/21 13:54 NOT TO TAKE ANYMORE,SHAKEY,STOMACH PAINS, stomach upset, stomach upset Review of Systems Review of Systems: Constitutional : No Weight loss, No Fever, No Chills, No Fatigue, No Malaise ENT/Mouth : No sore throat, No Rhinorrhea Eyes: No Eye Pain, No Swelling, No Redness Cardiovascular : No Chest Pain, No SOB, No Dyspnea on Exertion, No Orthopnea, No Edema, No Palpitations Respiratory : No Cough, No Sputum, No Wheezing Gastrointestinal : + Nausea, + Vomiting, No Diarrhea, No Constipation, + abdominal Pain, No Hematochezia, No Melena Genitourinary : No Dysuria, No Urinary Frequency, No Hematuria, + inability to void Musculoskeletal : No joint pain, No Myalgias, No Joint Swelling Skin : No Skin Lesions, No rash Neuro : No Weakness, No Numbness, No Dizziness, No Headache All other systems reviewed and are negative Yes all other systems are reviewed and are negative [facility] Past Medical History Attestation statement: The following information was validated with the patient. Source: old records reviewed and nursing notes reviewed Medical History Celiac disease Diabetes mellitus with diabetic nephropathy, with long-term current use of insulin Diabetes mellitus with retinopathy Diabetic gastroparesis associated with type 2 diabetes mellitus Diabetic neuropathy associated with type 2 diabetes mellitus Dyslipidemia Gastroparesis Hypercholesterolemia Hypertension Major depressive disorder Morbid obesity Non-toxic multinodular goiter Peripheral vascular disease Renal calculi Surgical History History of below-knee amputation (~06/28/17) History of esophagogastroduodenoscopy (EGD) (~09/26/13) History of lobectomy of thyroid (~03/25/15) History of repair of ACL (~2004) History of skin graft (~1993) Hx of colonoscopy S/P laparoscopic sleeve gastrectomy Family History Family History Father Hypertension Diabetes Mother No problems noted. Sister Mental health disorder Social History Social History Household Members: Spouse Housing: Apartment Do you presently have visiting nurse or other home services: No Alcohol intake: never Patient Tobacco Use Status: Never used Tobacco e-Cigarette/Vaping Use: Never Used Advance Directives: No Advance Directives Information Provided: No service: No Current occupational status: disabled Physical Exam Vital Signs: Vital Signs: Last Vital Signs Temp 97.5 F 08/06/21 19:40 Pulse 78 08/06/21 19:40 Resp 17 08/06/21 20:30 BP 136/81 08/06/21 19:40 Pulse Ox 97 08/06/21 19:40 BMI result Body Mass Index 39.0 VSS Appearance: Alert.? Oriented X3.? No acute distress.? Head: Normocephalic, atraumatic, no step-offs or deformities Eyes: Pupils equal, round and reactive to light.? ENT: Pharynx normal.? Neck: Normal inspection.? Neck supple.? CVS: Normal heart rate and rhythm.? Pulses normal.? Respiratory: No respiratory distress.? Breath sounds normal.? Abdomen: Soft and nontender.? Skin: Skin warm and dry.? Normal skin color.? Normal skin turgor.?+ Pro-line central venous cath in place, not working, leaking around sides. No erythema or warmth surrounding it. Extremities: No lower extremity edema.? No calf ttp. 5/5 strength to bilateral upper and lower extremities Back: No midline tenderness, no C-spine tenderness, full range of motion, no CVA tenderness bilaterally Neuro: Oriented X 3.? No motor deficit.? No sensory deficit. No saddle paresthesia. R patellar reflex 2+. Patient has a BKA on left cant access. Course Reevaluation(s) Reevaluation #1: Bladder scan 730- will put in a rob. 1000 drained from rob. Time: 18:49 Reevaluation #2: Delay in giving patient his antibiotics for osteomyelitis of the spine due to patient being very tough access. Initially I placed a 20 gauge IV in his left AC which infiltrated, I then placed a new 20 gauge IV in his left AC. now woking. Time: 21:56 Reevaluation #3: CBC at baseline. Patient noted to be in VERONICA. Patient's inflammatory markers appear to be at his baseline, no increase in inflammatory markers unlikely that this is cauda equina. Fluids have been given to the patient for his VERONICA. He will be admitted into the hospital for VERONICA, and for Interventional Radiology to see the patient tomorrow morning to address the issue with his port. Patient reports nausea and vomiting subsided. Time: 00:48 Additional Reevaluation(s): will admit patient. Medical Decision Making MDM Narrative Medical decision making narrative: 1630 56 yo M pmhx poorly controlled DM on in, PVD s/p left BKA ,celiac, morbid obesity, gastroparesis, HTN, HLD, presents w/ inability to flush port, urinary retention generlized abdominal pain and nausea and vomiting since this AM. Receiving Levaquin a daptomycin for osteomyeltis of the spine followed by Dr. Garrido. It appears as though patient has a tunneled pro-line central venous catheter via the right internal jugular approach, put in on 07/09/2021 here at [facility] by Dr. Abdirizak Reynaga. PE significant for distended abdomen, soft non tender w/ normoactive bowel sounds. L, BKA. Neuro nonfocal. Sensory and motor intact. No saddle paresthesias Hx and PE with low suspicion of epidural abscess and cauda equina. Plan- labs, bladder scan, UA. Will reach out to Dr. Garrido to see if its ok to give patient dose of atbx via peripheral line and reach out to Dr. Reynaga to see if he can take a look at CVC. IR can not come to evaluate port at this time. Medical Records Medical records reviewed: Yes I reviewed the patient's medical records. Lab Data Lab results reviewed: Yes I reviewed the patient's lab results. Result diagrams: 08/06/21 17:13 08/06/21 19:10 Labs: Lab Results 08/06/21 08/06/21 08/06/21 Range/Units 16:10 17:13 17:13 WBC 10.1 (4.8-10.8) X10*3/uL RBC 4.11 L (4.60-5.80) X10*6/uL Hgb 12.0 L (14.0-18.0) g/dl Hct 36.9 L (42.0-52.0) % MCV 89.8 (80.0-98.0) fL MCH 29.2 (27.0-33.0) pg MCHC 32.5 (31.0-36.0) g/dl RDW 13.9 (11.0-16.0) % Plt Count 247 (160-400) X10*3/uL MPV 10.2 (9.4-12.4) fL Immature Gran % (Auto) 0.5 H (0.0-0.4) % Neut % (Auto) 81.4 H (45-73) % Lymph % (Auto) 10.1 L (20-40) % Hampton % (Auto) 6.6 (2-11) % Eos % (Auto) 0.9 (0-4) % Baso % (Auto) 0.5 (0-2) % Lymph # (Auto) 1.0 L (1.2-4.9) X10*3/uL Hampton # (Auto) 0.7 (0.1-1.2) X10*3/uL Eos # (Auto) 0.1 (0.0-0.4) X10*3/uL Baso # (Auto) 0.1 (0.0-0.2) X10*3/uL Abs Immat Gran (auto) 0.05 H (0.00-0.03) X10*3/uL Absolute Neuts (auto) 8.3 (2.0-8.3) x10*3/uL Absolute Nucleated RBC 0.000 (0.0-0.012) X10*3/uL Nucleated RBC % (auto) 0.0 (0.0-0.2) /100WBC ESR (0-15) MM/HR Sodium Cancelled Potassium Cancelled Chloride Cancelled Carbon Dioxide Cancelled Anion Gap Cancelled BUN Cancelled Creatinine Cancelled Estim Creat Clear Calc Cancelled Estimated GFR Cancelled Random Glucose Cancelled Calcium Cancelled Magnesium Cancelled Total Bilirubin Cancelled AST Cancelled ALT Cancelled Alkaline Phosphatase Cancelled C-Reactive Protein Cancelled Total Protein Cancelled Albumin Cancelled COVID-19 (JOSHUA) Negative (Negative) COVID-19 Clin Com See Note 08/06/21 08/06/21 Range/Units 19:10 19:10 WBC (4.8-10.8) X10*3/uL RBC (4.60-5.80) X10*6/uL Hgb (14.0-18.0) g/dl Hct (42.0-52.0) % MCV (80.0-98.0) fL MCH (27.0-33.0) pg MCHC (31.0-36.0) g/dl RDW (11.0-16.0) % Plt Count (160-400) X10*3/uL MPV (9.4-12.4) fL Immature Gran % (Auto) (0.0-0.4) % Neut % (Auto) (45-73) % Lymph % (Auto) (20-40) % Hampton % (Auto) (2-11) % Eos % (Auto) (0-4) % Baso % (Auto) (0-2) % Lymph # (Auto) (1.2-4.9) X10*3/uL Hampton # (Auto) (0.1-1.2) X10*3/uL Eos # (Auto) (0.0-0.4) X10*3/uL Baso # (Auto) (0.0-0.2) X10*3/uL Abs Immat Gran (auto) (0.00-0.03) X10*3/uL Absolute Neuts (auto) (2.0-8.3) x10*3/uL Absolute Nucleated RBC (0.0-0.012) X10*3/uL Nucleated RBC % (auto) (0.0-0.2) /100WBC ESR 86 H (0-15) MM/HR Sodium 139 Potassium 5.0 Chloride 106 Carbon Dioxide 23 Anion Gap 15 BUN 53 H Creatinine 3.16 H Estim Creat Clear Calc 36.2 Estimated GFR 21 Random Glucose 132 H Calcium 9.4 Magnesium 2.1 Total Bilirubin 0.3 AST 28 ALT 23 Alkaline Phosphatase 86 C-Reactive Protein 1.74 H Total Protein 7.0 Albumin 3.7 COVID-19 (JOSHUA) (Negative) COVID-19 Clin Com Critical Care Time Critical Care Time Critical Care Time: Yes Total Critical Care Time: 45 Attestation: Obtaining history, physical examination, reviewing imaging, starting an ultrasound-guided line multiple times, reaching out to Interventional Radiology and Infectious Disease. Discharge Plan Discharge Clinical Impression: VERONICA (acute kidney injury), Nausea & vomiting Patient Disposition: Still a Patient Prescriptions: No Action gabapentin 600 mg tablet 1,200 mg PO BID Qty: 60 0RF amlodipine 10 mg tablet 10 mg PO DAILY Qty: 30 3RF (DME) FreeStyle Juanito 14 Day Sensor Kit See Rx Instructions .Route Qty: 2 0RF Rx Instructions: As directed omeprazole 40 mg capsule,delayed release(DR/EC) 40 mg PO QAM Qty: 90 1RF atorvastatin 10 mg tablet 10 mg PO DAILY Qty: 30 5RF oxycodone 5 mg tablet 5 mg PO BID PRN (Reason: pain) Qty: 14 0RF daptomycin 500 mg Recon Soln 970 mg IV Q24H Qty: 39 0RF levofloxacin 750 mg tablet 750 mg PO Q48H Qty: 22 0RF Rx Instructions: stop date 08/16/21. ferrous sulfate 324 mg (65 mg iron) tablet,delayed release (DR/EC) 324 mg PO DAILY 0RF cholecalciferol (vitamin D3) 50 mcg (2,000 unit) capsule 50 mcg PO DAILY 0RF Humalog KwikPen Insulin 200 unit/mL (3 mL) insulin pen See Protocol unit subcut TIDAC 0RF Protocol: Insulin Correction Scale Less than or equal to 110 ---- Give (units): 0 111 to 150 Give (units): 0 151 to 200 Give (units): 2 201 to 250 Give (units): 4 251 to 300 Give (units): 6 301 to 350 Give (units): 8 Greater than 350 Give (units): 10 Call MD if Blood Glucose > : 350 allopurinol 100 mg tablet 100 mg PO DAILY 0RF (DME) blood sugar diagnostic Strip See Rx Instructions ea Not Applicable .MEDSULY Qty: 10 0RF Rx Instructions: As directed
[2021-08-06 16:39] LABS: COVID-19 Test Negative (Negative); IDNOW Serial# 9DD0AD1C
[2021-08-06 17:18] LABS: MANUAL DIFF FLAG NO
[2021-08-06 17:24] LABS: Basophils Absolute Auto 0.1 X10*3/uL (0.0-0.2); Basophils Percent Auto 0.5 % (0-2); Eosinophils Absolute Auto 0.1 X10*3/uL (0.0-0.4); Eosinophils Percent Auto 0.9 % (0-4); Hematocrit 36.9 % (42.0-52.0); Imm Gran Abs Auto 0.05 X10*3/uL (0.00-0.03); Imm Gran Pct Auto 0.5 % (0.0-0.4); Lymphocytes Percent Auto 10.1 % (20-40); Mean Corpuscular HGB Conc 32.5 g/dl (31.0-36.0); Mean Corpuscular Hemoglobin 29.2 pg (27.0-33.0); Mean Corpuscular Volume 89.8 fL (80.0-98.0); Mean Platelet Volume 10.2 fL (9.4-12.4); Monocytes Absolute Auto 0.7 X10*3/uL (0.1-1.2); Monocytes Percent Auto 6.6 % (2-11); Neutrophils Absolute Auto 8.3 x10*3/uL (2.0-8.3); Neutrophils Percent Auto 81.4 % (45-73); Platelet Count 247 X10*3/uL (160-400); Red Blood Count 4.11 X10*6/uL (4.60-5.80); Red Cell Distribution Width 13.9 % (11.0-16.0); White Blood Count 10.1 X10*3/uL (4.8-10.8)
[2021-08-06 19:39] LABS: Alanine Aminotransferase 23 U/L (0-40); Albumin Level 3.7 g/dL (3.5-5.0); Alkaline Phosphatase 86 U/L (39-117); Anion Gap 15 (12-20); Aspartate Amino Transferase 28 U/L (5-37); Bilirubin Total 0.3 mg/dL (0.0-1.0); Blood Urea Nitrogen 53 mg/dL (9-16); C Reactive Protein 1.74 mg/dL (< or = 0.50); Calcium 9.4 mg/dL (8.4-10.2); Carbon Dioxide 23 mmol/L (22-29); Chloride 106 mmol/L (96-108); Creatinine Clr Calc Pharmacy 36.2; Estimated Glomerular Filt Rate 21; Glucose Random 132 mg/dL (60-115); Sodium 139 mmol/L (135-145)
[2021-08-06 19:40] VITALS: BP 136/81; PULSE 78; RESP 17; TEMP 36.4; O2SAT 97
[2021-08-06] MEDS: oxyCODONE HCl Immed Release 5 MG TABLET PO (19:42)
[2021-08-06] MEDS: ondansetron HCL 4 MG/2 ML VIAL IVPUSH (19:43)
[2021-08-06 19:51] LABS: Magnesium 2.1 mg/dL (1.6-2.6)
[2021-08-06 20:26] LABS: Erythrocyte Sedimentation Rate 86 MM/HR (0-15)
--- NOTE | 2021-08-06 20:27 | PC.NURSE ---
IV INFILTRATED AFTER [facility]. LENNIE BULLARD CAME BUT WAS UNABLE TO START NEW IV. RUFUS HINTON AWARE. WAITING FOR IV ACCESS.
[2021-08-06 20:30] VITALS: RESP 17
--- NOTE | 2021-08-06 21:07 | PC.NURSE ---
NO IV ACCESS. WAITING FOR ULTRASOUND GUIDE INSERTION BY RUFUS HINTON.
[2021-08-07] VITALS (7 sets, daily range): BP systolic 152–174; BP diastolic 86–95; PULSE 80–88; RESP 14–18; TEMP 36.5–37; O2SAT 93–99
[2021-08-07] MEDS: 0.9 % Sodium Chloride 1,000 ML 999 ML IV ×3 (00:13→02:56)
--- NOTE | 2021-08-07 01:16 | PC.NURSE ---
report given to siva wiley in over flow unit. pt waiting transport after admitted.
--- NOTE | 2021-08-07 01:17 | PC.NURSE ---
report given to mia wiley .
[2021-08-07 01:51] LABS: Appearance Urine HAZY; Color Urine STRAW; Glucose Urine UA 100 MG/DL (NEG); Leukocyte Esterase Urine NEG (NEG); Nitrite Urine NEG (NEG); UACC Culture Trigger NO; Urine Blood 3+ (NEG); Urine Ketones NEG (NEG); Urine Protein 3+ MG/DL (NEG-TRACE)
[2021-08-07 02:01] LABS: RBC Urine 30-49 /HPF (0)
[2021-08-07 02:02] LABS: Bacteria Urine TRACE /LPF; Mucus Urine TRACE /LPF
--- NOTE | 2021-08-07 02:30 | PC.NURSE ---
RECEIVED FROM MAIN ED.A+O.LUNGS DIM LEFT BASE.NO SOB,ST 96% ON ROOM AIR.DENIES PAIN.HAS F/C INTACT DRAINING YELLOW URINE.DENSON PORT PRESENT TO RIGHT CHEST.PT STATES UNABLE TO FLUSH.TO BE SEEN BY IR IN AM.RECEIVING FLUID BOLUSES ORDERED.IV PATENT TO LEFT AC.HAS LEFT BKA,PROSTHESIS IN PLACE.MADE COMF.
[2021-08-07] MEDS: Lactated Ringers 1,000 ML 100 ML IVCONT ×2 (06:04→20:51)
[2021-08-07] MEDS: Omeprazole 40 MG CAPSULE.DR PO (06:08)
[2021-08-07 06:19] LABS: MANUAL DIFF FLAG NO
[2021-08-07 06:21] LABS: Basophils Percent Auto 0.3 % (0-2); Eosinophils Absolute Auto 0.3 X10*3/uL (0.0-0.4); Eosinophils Percent Auto 3.6 % (0-4); Hematocrit 34.5 % (42.0-52.0); Hemoglobin 11.2 g/dl (14.0-18.0); Imm Gran Abs Auto 0.03 X10*3/uL (0.00-0.03); Imm Gran Pct Auto 0.3 % (0.0-0.4); Lymphocytes Absolute Auto 1.6 X10*3/uL (1.2-4.9); Lymphocytes Percent Auto 17.7 % (20-40); Mean Corpuscular HGB Conc 32.5 g/dl (31.0-36.0); Mean Corpuscular Hemoglobin 29.3 pg (27.0-33.0); Mean Corpuscular Volume 90.3 fL (80.0-98.0); Mean Platelet Volume 10.4 fL (9.4-12.4); Monocytes Absolute Auto 0.6 X10*3/uL (0.1-1.2); Monocytes Percent Auto 7.1 % (2-11); Neutrophils Absolute Auto 6.4 x10*3/uL (2.0-8.3); Platelet Count 212 X10*3/uL (160-400); Red Blood Count 3.82 X10*6/uL (4.60-5.80); Red Cell Distribution Width 13.8 % (11.0-16.0)
[2021-08-07] MEDS: levoFLOXacin 750 MG TABLET PO (06:22)
[2021-08-07 06:34] LABS: Anion Gap 12 (12-20); Blood Urea Nitrogen 47 mg/dL (9-16); Calcium 8.6 mg/dL (8.4-10.2); Carbon Dioxide 23 mmol/L (22-29); Chloride 109 mmol/L (96-108); Creatinine Clr Calc Pharmacy 43.7; Estimated Glomerular Filt Rate 26; Glucose Random 109 mg/dL (60-115); Potassium 4.8 mmol/L (3.3-5.1); Sodium 139 mmol/L (135-145)
[2021-08-07 06:35] LABS: Lipase 16 U/L (8-78)
--- NOTE | 2021-08-07 07:09 | P.HPHOSP_ITS ---
History of Present Illness Date of Service: 08/07/21 Chief Complaint: nausea and vomiting and urinary retention this is a 56-year-old male with past medical history of diabetes on insulin, peripheral vascular disease status post left BKA, celiac disease, morbid obesity, diabetic gastroparesis, hypertension, hyperlipidemia, osteomyelitis of the spine currently being treated with IV antibiotics as well as Levaquin p.o. by Dr. Marco weston presents to the hospital with complaints of nausea and vomiting as well as urinary retention. Patient reports his symptoms started this a.m., his for was working yesterday, he did not try it since but when the port was accessed in the ED it was leaking. He reports that his abdominal pain has now resolved, he has no nausea or vomiting at this time. He denies any fever or chills. He denies any urinary symptoms including no urinary frequency or urgency but reports that he was not able to pee and does had trickles. He denies any chest pain, no shortness of breath, no dizziness, headache or change in vision. denies any new numbness or tingling, no difficulty in ambulating. uses a prosthetic leg on the left. On arrival to the ED patient hemodynamically stable 10 significant abnormal vitals Labs are significant for WBC count of 9.0, BUN of 47, creatinine of 3.16 with a baseline around 2.05 from July 07 but seems to be worsening since. CRP of 1.74, lipase of 16, UA negative, abdominal pelvic CT shows No acute findings Review of Systems Review of Systems: Yes all other systems are reviewed and are negative [facility] Medical History Celiac disease Diabetes mellitus with diabetic nephropathy, with long-term current use of insulin Diabetes mellitus with retinopathy Diabetic gastroparesis associated with type 2 diabetes mellitus Diabetic neuropathy associated with type 2 diabetes mellitus Dyslipidemia Gastroparesis Hypercholesterolemia Hypertension Major depressive disorder Morbid obesity Non-toxic multinodular goiter Peripheral vascular disease Renal calculi Family History Father Hypertension Diabetes Mother No problems noted. Sister Mental health disorder Surgical History History of below-knee amputation (~06/28/17) History of esophagogastroduodenoscopy (EGD) (~09/26/13) History of lobectomy of thyroid (~03/25/15) History of repair of ACL (~2004) History of skin graft (~1993) Hx of colonoscopy S/P laparoscopic sleeve gastrectomy Social History Household Members: Spouse Housing: Apartment Do you presently have visiting nurse or other home services: No Alcohol intake: never Patient Tobacco Use Status: Never used Tobacco e-Cigarette/Vaping Use: Never Used Advance Directives: No Advance Directives Information Provided: No service: No Current occupational status: disabled Meds Allergies Allergy/AdvReac Type Severity Reaction Status Date / Time cephalexin [CEPHALEXIN] Allergy Intermediate UNABLE TO Verified 08/06/21 13:54 MOVE ENTIRE BODY, chills and fever, nausea, chills, fever, and nausea vancomycin [VANCOMYCIN] Allergy Intermediate ITCHY,HIVES, Verified 08/06/21 13:54 nausea and vomiting metformin [METFORMIN] AdvReac Intermediate ADVISED Verified 08/06/21 13:54 NOT TO TAKE ANYMORE,SHAKEY,STOMACH PAINS, stomach upset, stomach upset Active Medications: Current Medications Acetaminophen (Acetaminophen 325 Mg Tablet) 650 mg PO Q6H PRN PRN Reason: Pain, Mild (Pain Scale 1-3) Amlodipine Besylate (Amlodipine Besylate 10 Mg Tablet) 10 mg PO DAILY [facility]; Protocol Atorvastatin Calcium (Atorvastatin Calcium 10 Mg Tablet) 10 mg PO DAILY [facility] Dextrose (Dextrose 50 % 25 Gm/50 Ml Syringe) 25 gm IVPUSH Q15M PRN; Protocol PRN Reason: per Hypoglycemia Standing Ord. Ferrous Sulfate (Ferrous Sulfate 324 Mg Tablet.Dr) 324 mg PO DAILY [facility] Gabapentin (Gabapentin 600 Mg Tablet) 1,200 mg PO BID [facility] Glucose (Glucose Gel 15 Gm Gel..Gram.) 15 gm PO Q15M PRN; Protocol PRN Reason: per Hypoglycemia Standing Ord. Heparin Sodium (Porcine) (Heparin Sodium,Porcine 5,000 Unit/Ml Vial) 5,000 unit SUBCUT Q12H [facility] Lactated Ringer's (Lr) 1,000 mls @ 100 mls/hr IVCONT .Q10H [facility] Last Admin: 08/07/21 06:04 Dose: 100 mls/hr Documented by: Daptomycin 970 mg/ Sodium (Chloride) 69.4 mls @ 100 mls/hr IV Q24H [facility] Insulin Human Lispro (Insulin Lispro 100 Unit/Ml 3 Ml Vial) 0 unit SUBCUT QIDACHS [facility]; Protocol Last Admin: 08/07/21 07:04 Dose: Not Given Documented by: Levofloxacin (Levofloxacin 750 Mg Tablet) 750 mg PO Q48H [facility] Stop: 08/16/21 05:59 Last Admin: 08/07/21 06:22 Dose: 750 mg Documented by: Omeprazole (Omeprazole 40 Mg Capsule.) 40 mg PO DAILY@0630 [facility] Last Admin: 08/07/21 06:08 Dose: 40 mg Documented by: Ondansetron HCl (Ondansetron Hcl 4 Mg/2 Ml Vial) 4 mg IVPUSH Q8H PRN PRN Reason: Nausea and Vomiting Sodium Chloride (0.9 % Sodium Chloride Flush 3 Ml Syringe) 3 ml IVFLUSH QSHIFT [facility] Home Medications Medication Instructions Recorded Confirmed Last Taken Type allopurinol 100 mg tablet 100 mg PO DAILY 04/29/20 08/07/21 08/06/21 09:00 History blood sugar diagnostic #10 ea 04/29/20 06/14/21 Unknown History ferrous sulfate 324 mg (65 mg 324 mg PO DAILY 10/08/20 08/07/21 08/06/21 History iron) tablet,delayed release cholecalciferol (vitamin D3) 50 50 mcg PO DAILY 02/16/21 07/07/21 08/06/21 History mcg (2,000 unit) capsule insulin lispro 200 unit/mL (3 mL) See Protocol SUBCUT TIDAC 04/16/21 08/07/21 Unknown History subcutaneous pen (Humalog KwikPen U-200 Insulin) Physical Exam Vital Signs and Narrative: Vital Signs: Last Vital Signs Temp 98 F 08/07/21 04:00 Pulse 80 08/07/21 04:00 Resp 18 08/07/21 04:00 BP 174/94 H 08/07/21 04:00 Pulse Ox 96 08/07/21 04:00 BMI result Body Mass Index 39.0 Const: General: cooperative and no acute distress Orientation/consciousness: patient oriented x3 Eyes: General: appearance normal, both eyes and all related structures Pupils: Equal, round and reactive pupils present Resp: Effort & Inspection: normal respiratory effort Auscultation: clear to auscultation bilaterally Cardio: Rate: regular rate Rhythm: regular rhythm GI: Palpation (GI): Soft to palpation Auscultation: normal bowel sounds Skin: General skin exam: no rashes or lesions noted Neuro: General: patient oriented x3 Cranial nerves: Yes Equal, round and reactive pupils present Cognition (Neuro): normal cognition Results Labs CBC and Chem 7: 08/07/21 05:47 08/07/21 05:47 Labs: Laboratory Results - last 24 hr 08/06/21 08/06/21 08/06/21 16:10 17:13 17:13 MCV 89.8 MCH 29.2 MCHC 32.5 RDW 13.9 Plt Count 247 MPV 10.2 Immature Gran % (Auto) 0.5 H Neut % (Auto) 81.4 H Lymph % (Auto) 10.1 L [place] % (Auto) 6.6 Eos % (Auto) 0.9 Baso % (Auto) 0.5 Lymph # (Auto) 1.0 L [place] # (Auto) 0.7 Eos # (Auto) 0.1 Baso # (Auto) 0.1 Abs Immat Gran (auto) 0.05 H Absolute Neuts (auto) 8.3 Absolute Nucleated RBC 0.000 Nucleated RBC % (auto) 0.0 ESR Anion Gap Cancelled Estim Creat Clear Calc Cancelled Estimated GFR Cancelled Random Glucose Cancelled Calcium Cancelled Magnesium Cancelled Total Bilirubin Cancelled AST Cancelled ALT Cancelled Alkaline Phosphatase Cancelled C-Reactive Protein Cancelled Total Protein Cancelled Albumin Cancelled Lipase Urine Color Urine Appearance Urine pH Ur Specific [place] Urine Protein Urine Glucose (UA) Urine Ketones Urine Blood Urine Nitrite Ur Leukocyte Esterase Urine RBC Urine WBC Ur Squamous Epith Cells Urine Bacteria Urine Mucus COVID-19 ([facility]) Negative COVID-19 Clin Com See Note 08/06/21 08/06/21 08/07/21 19:10 19:10 01:42 MCV MCH MCHC RDW Plt Count MPV Immature Gran % (Auto) Neut % (Auto) Lymph % (Auto) [place] % (Auto) Eos % (Auto) Baso % (Auto) Lymph # (Auto) Placer # (Auto) Eos # (Auto) Baso # (Auto) Abs Immat Gran (auto) Absolute Neuts (auto) Absolute Nucleated RBC Nucleated RBC % (auto) ESR 86 H Anion Gap 15 Estim Creat Clear Calc 36.2 Estimated GFR 21 Random Glucose 132 H Calcium 9.4 Magnesium 2.1 Total Bilirubin 0.3 AST 28 ALT 23 Alkaline Phosphatase 86 C-Reactive Protein 1.74 H Total Protein 7.0 Albumin 3.7 Lipase Urine Color STRAW Urine Appearance HAZY Urine pH 6.0 Ur Specific [place] 1.020 Urine Protein 3+ H Urine Glucose (UA) 100 H Urine Ketones NEG Urine Blood 3+ H Urine Nitrite NEG Ur Leukocyte Esterase NEG Urine RBC 30-49 H Urine WBC 1-4 Ur Squamous Epith Cells NONE Urine Bacteria TRACE Urine Mucus TRACE COVID-19 ([facility]UA) COVID-19 [employer] Com 08/07/21 08/07/21 08/07/21 05:47 05:47 05:47 MCV 90.3 MCH 29.3 MCHC 32.5 RDW 13.8 Plt Count 212 MPV 10.4 Immature Gran % (Auto) 0.3 Neut % (Auto) 71.0 Lymph % (Auto) 17.7 L [place] % (Auto) 7.1 Eos % (Auto) 3.6 Baso % (Auto) 0.3 Lymph # (Auto) 1.6 Placer # (Auto) 0.6 Eos # (Auto) 0.3 Baso # (Auto) 0.0 Abs Immat Gran (auto) 0.03 Absolute Neuts (auto) 6.4 Absolute Nucleated RBC 0.000 Nucleated RBC % (auto) 0.0 ESR Anion Gap 12 Estim Creat Clear Calc 43.7 Estimated GFR 26 Random Glucose 109 Calcium 8.6 D Magnesium Total Bilirubin AST ALT Alkaline Phosphatase C-Reactive Protein Total Protein Albumin Lipase 16 Urine Color Urine Appearance Urine pH Ur Specific [place] Urine Protein Urine Glucose (UA) Urine Ketones Urine Blood Urine Nitrite Ur Leukocyte Esterase Urine RBC Urine WBC Ur Squamous Epith Cells Urine Bacteria Urine Mucus COVID-19 ([facility]UA) COVID-19 Clin Com Imaging Radiologist's Impressions: Impressions Abdomen/Pelvis CT 08/07/21 01:40 IMPRESSION: No acute findings identified in the abdomen/pelvis. Fleischner guidelines were followed. Assessment and Plan (1) VERONICA (acute kidney injury): Status: Acute (2) Nausea & vomiting: Status: Acute (3) Urinary retention: Status: Acute (4) Osteomyelitis of lumbar spine: Status: Acute (5) Diabetic gastroparesis associated with type 2 diabetes mellitus: Status: Acute Plan 56 year old male with past medical history of diabetes who presents to the hospital with nausea vomiting, abdominal pain, found to have VERONICA and nonfunctioning port # # N/v - likely 2/2 gastroparesis - conservative management, antiemetics, IV fluids # VERONICA - likely secondary to dehydration - start him on IV fluids - follow BMP # urinary retention - unclear etiology - possibly secondary to his lumbar osteomyelitis - will insert rob - obtain MRI of the lumbar region - no new neurological deficits # Osteomyelitis of the lumbar - Pt on dapto IV and Levoquin PO - tunneled port-a-cath leaking - will obtain IR consult for evaluation - continue medications - ID consulted # DM - will continue low-dose sliding scale insulin - diabetic diet DVT prophylaxis: Heparin subQ Quality Stroke Does the patient have a stroke diagnosis?: No VTE Prior VTE?: No VTE Risk Level:: Medical - moderate - high VTE Device Contraindication: Treatment Not Indicated VTE Drug Contraindication: N/A - Med Ordered
[2021-08-07 07:18] LABS: Glucose, Whole Blood 112 mg/dL (60-115)
[2021-08-07] MEDS: Gabapentin 600 MG TABLET 1200 MG PO ×2 (08:33→20:50)
[2021-08-07] MEDS: Ferrous Sulfate 324 MG TABLET.DR PO (08:33)
[2021-08-07] MEDS: amLODIPine Besylate 10 MG TABLET PO (08:33)
[2021-08-07] MEDS: Atorvastatin Calcium 10 MG TABLET PO (08:33)
--- NOTE | 2021-08-07 09:16 | PC.NURSE ---
PT AWAKE ATE BREAKFAST WAS MEDICATED CHARTED AWAITING MRI, SCREENING TOOL COMPLETED, OFFERS NO ACUTE COMPLAINTS
[2021-08-07 12:04] LABS: Glucose, Whole Blood 146 mg/dL (60-115)
--- NOTE | 2021-08-07 13:54 | PC.NURSE ---
PT HAD MRI AND OFFERS NO COMPLAINTS UPON RETURN. HE HAS IV FLUIDS INFUSING ATE LUNCH, REQUIRED NO INSULIN COVERAGE
--- NOTE | 2021-08-07 14:40 | MHC.CM.PN ---
PT REPORTS HE LIVES AT HOME WITH HIS AND IS INDEPENDENT WITH SELF CARE PT REPORTS HE USES A [facility] AND NO OTHER DME PT WAS DISCHARGED IN JUNE WITH [facility] AND [facility] FOR IV ABX, HE REPORTS HE IS STILL ACTIVE WITH BOTH. PT CONFIRMS HIS PCP IS BRITTNEY FROST PT BELIEVES HE HAS A HCP, COPY REQUESTED. IMM DELIVERED, ORIGINAL AT BEDSIDE, COPY SENT TO [facility] CURRENT DC PLAN IS HOME WITH RESUMPTION OF SERVICES TO TRANSPORT
--- NOTE | 2021-08-07 15:40 | PC.NURSE ---
TO IR FOR CENTRAL VENOUS CATH REPLACEMENT
--- NOTE | 2021-08-07 15:46 | PM.EVENT ---
Event Note Date of Service: 08/07/21 Event Note: Pt seen/examined. Chart reviewed; exam unchanged from am. Likely gastroengeritis that has improved. Complained of Alexander leaking with flush. Seen [place] IR...new Alexander to be done today. Will follow up in am
--- NOTE | 2021-08-07 16:55 | W.PM.IDCN ---
History of Present Illness Data of Consult Service Date: 08/07/21 Requesting physician: Eleuterio Lopez Primary Care Provider: Shereen Cortes MD HPI Reason for consult: osteomyelitis spine,L2-L3 He presents with inability to flush line or urinate over last day He has no nausea or vomiting or fever I had seen him earlier and he is receiving IV Daptomycin and po Levaquin to finish 08/17/2021 Review of Systems Review of Systems: Yes all other systems are reviewed and are negative PMFSH Past Medical History Medical History Celiac disease Diabetes mellitus with diabetic nephropathy, with long-term current use of insulin Diabetes mellitus with retinopathy Diabetic gastroparesis associated with type 2 diabetes mellitus Diabetic neuropathy associated with type 2 diabetes mellitus Dyslipidemia Gastroparesis Hypercholesterolemia Hypertension Major depressive disorder Morbid obesity Non-toxic multinodular goiter Peripheral vascular disease Renal calculi Family History Family History Father Hypertension Diabetes Mother No problems noted. Sister Mental health disorder Family history: reviewed and not pertinent Surgical History Surgical History History of below-knee amputation (~06/28/17) History of esophagogastroduodenoscopy (EGD) (~09/26/13) History of lobectomy of thyroid (~03/25/15) History of repair of ACL (~2004) History of skin graft (~1993) Hx of colonoscopy S/P laparoscopic sleeve gastrectomy Social History Social History Household Members: Spouse Housing: Apartment Do you presently have visiting nurse or other home services: No Alcohol intake: never Patient Tobacco Use Status: Never used Tobacco e-Cigarette/Vaping Use: Never Used service: No Current occupational status: disabled Meds Allergies Allergy/AdvReac Type Severity Reaction Status Date / Time cephalexin [CEPHALEXIN] Allergy Intermediate UNABLE TO Verified 08/09/21 18:44 MOVE ENTIRE BODY, chills and fever, nausea, chills, fever, and nausea vancomycin [VANCOMYCIN] Allergy Intermediate ITCHY,HIVES, Verified 08/09/21 18:44 nausea and vomiting metformin [METFORMIN] AdvReac Intermediate ADVISED Verified 08/09/21 18:44 NOT TO TAKE ANYMORE,SHAKEY,STOMACH PAINS, stomach upset, stomach upset Active Medications: Current Medications Acetaminophen (Acetaminophen 325 Mg Tablet) 650 mg PO Q6H PRN PRN Reason: Pain, Mild (Pain Scale 1-3) Amlodipine Besylate (Amlodipine Besylate 10 Mg Tablet) 10 mg PO DAILY [facility]; Protocol Last Admin: 08/07/21 08:33 Dose: 10 mg Documented by: Atorvastatin Calcium (Atorvastatin Calcium 10 Mg Tablet) 10 mg PO DAILY [facility] Last Admin: 08/07/21 08:33 Dose: 10 mg Documented by: Dextrose (Dextrose 50 % 25 Gm/50 Ml Syringe) 25 gm IVPUSH Q15M PRN; Protocol PRN Reason: per Hypoglycemia Standing Ord. Ferrous Sulfate (Ferrous Sulfate 324 Mg Tablet.) 324 mg PO DAILY [facility] Last Admin: 08/07/21 08:33 Dose: 324 mg Documented by: Gabapentin (Gabapentin 600 Mg Tablet) 1,200 mg PO BID [facility] Last Admin: 08/07/21 08:33 Dose: 1,200 mg Documented by: Glucose (Glucose Gel 15 Gm Gel..Gram.) 15 gm PO Q15M PRN; Protocol PRN Reason: per Hypoglycemia Standing Ord. Heparin Sodium (Porcine) (Heparin Sodium,Porcine 5,000 Unit/Ml Vial) 5,000 unit SUBCUT Q12H [facility] Lactated Ringer's (Lr) 1,000 mls @ 100 mls/hr IVCONT .Q10H [facility] Last Admin: 08/07/21 06:04 Dose: 100 mls/hr Documented by: Daptomycin 970 mg/ Sodium (Chloride) 69.4 mls @ 100 mls/hr IV Q24H [facility] Insulin Human Lispro (Insulin Lispro 100 Unit/Ml 3 Ml Vial) 0 unit SUBCUT QIDACHS [facility]; Protocol Last Admin: 08/07/21 12:06 Dose: Not Given Documented by: Levofloxacin (Levofloxacin 750 Mg Tablet) 750 mg PO Q48H [facility] Stop: 08/16/21 05:59 Last Admin: 08/07/21 06:22 Dose: 750 mg Documented by: Omeprazole (Omeprazole 40 Mg Capsule.) 40 mg PO DAILY@0630 [facility] Last Admin: 08/07/21 06:08 Dose: 40 mg Documented by: Ondansetron HCl (Ondansetron Hcl 4 Mg/2 Ml Vial) 4 mg IVPUSH Q8H PRN PRN Reason: Nausea and Vomiting Sodium Chloride (0.9 % Sodium Chloride Flush 3 Ml Syringe) 3 ml IVFLUSH QSHIFT [facility] Last Admin: 08/07/21 15:38 Dose: Not Given Documented by: Home Medications Medication Instructions Recorded Confirmed Last Taken Type allopurinol 100 mg tablet 100 mg PO DAILY 04/29/20 08/07/21 08/06/21 09:00 History blood sugar diagnostic #10 ea 04/29/20 06/14/21 Unknown History ferrous sulfate 324 mg (65 mg 324 mg PO DAILY 10/08/20 08/07/21 08/06/21 History iron) tablet,delayed release cholecalciferol (vitamin D3) 50 50 mcg PO DAILY 02/16/21 08/07/21 08/06/21 History mcg (2,000 unit) capsule insulin lispro 200 unit/mL (3 mL) See Protocol SUBCUT TIDAC 04/16/21 08/07/21 Unknown History subcutaneous pen (Humalog KwikPen U-200 Insulin) Physical Exam Vital Signs: Vital Signs: Last Vital Signs Temp 98 F 08/07/21 07:19 Pulse 88 08/07/21 12:03 Resp 16 08/07/21 12:03 BP 161/90 H 08/07/21 12:03 Pulse Ox 93 08/07/21 12:03 BMI result Body Mass Index 39.0 Const: General: cooperative Orientation/consciousness: patient oriented x3 Eyes: General: appearance normal, both eyes and all related structures Pupils: Equal, round and reactive pupils present Resp: Effort & Inspection: normal respiratory effort Cardio: Rate: regular rate Rhythm: regular rhythm GI: Palpation (GI): Soft to palpation and nontender Neuro: General: patient oriented x3, moves all extremities, no focal motor deficits and CN's II-XI intact bilaterally Cranial nerves: Yes Equal, round and reactive pupils present Results Labs CBC & Chem 7: 08/08/21 07:38 08/08/21 07:38 Labs: Short CBC 08/06/21 08/07/21 Range/Units 17:13 05:47 WBC 10.1 9.0 (4.8-10.8) X10*3/uL Hgb 12.0 L 11.2 L (14.0-18.0) g/dl Hct 36.9 L 34.5 L (42.0-52.0) % Plt Count 247 212 (160-400) X10*3/uL BMP 08/06/21 08/06/21 08/07/21 17:13 19:10 05:47 Sodium Cancelled 139 139 Potassium Cancelled 5.0 4.8 Chloride Cancelled 106 109 H Carbon Dioxide Cancelled 23 23 BUN Cancelled 53 H 47 H Creatinine Cancelled 3.16 H 2.62 H Calcium Cancelled 9.4 8.6 D Liver Function 08/06/21 08/06/21 Range/Units 17:13 19:10 Total Bilirubin Cancelled 0.3 AST Cancelled 28 ALT Cancelled 23 Alkaline Phosphatase Cancelled 86 Albumin Cancelled 3.7 Urine 08/07/21 Range/Units 01:42 Urine Color STRAW Urine Appearance HAZY Urine pH 6.0 (5.0-8.0) Ur Specific [place] 1.020 (1.005-1.025) Urine Protein 3+ H (NEG-TRACE) MG/DL Urine Glucose (UA) 100 H (NEG) MG/DL Assessment and Plan (1) Urinary retention: Status: Resolved (2) Osteomyelitis of lumbar spine: Status: Acute He has osteomyelitis and is due to finish therapy in ten days, on 08/17 He has no signs of neurologic compromise to explain urinary retention and has MRI similar These are unusual antibiotic effects Possibly he has UTI Plan Continue with [facility] and Urology evaluation Consider Neurology evaluation due to amount of pain in area and see if neurologic dysfunction related
[2021-08-07] MEDS: Lidocaine HCl 1 % MPF 5 ML VIAL INFILTRATI (17:14)
[2021-08-07 18:11] LABS: Glucose, Whole Blood 136 mg/dL (60-115)
[2021-08-07] MEDS: Acetaminophen 325 MG TABLET 650 MG PO (18:58)
[2021-08-07] MEDS: oxyCODONE HCl Immed Release 5 MG TABLET PO (18:59)
--- NOTE | 2021-08-07 19:44 | PC.NURSE ---
Report taken from Doug, pt resting in bed, reports minimal pain @ this time. IVFs restarted per AUG. Pt aware of plan for medication @ 2029. Continue to monitor.
[2021-08-07 20:47] LABS: Glucose, Whole Blood 192 mg/dL (60-115)
[2021-08-07] MEDS: Insulin Lispro 100 UNIT/ML 3 ML VIAL SUBCUT (20:51)
[2021-08-07] MEDS: Heparin Sodium,Porcine 5,000 UNIT/ML VIAL 5000 UNIT SUBCUT (20:51)
[2021-08-08 01:25] VITALS: RESP 16
[2021-08-08 01:32] VITALS: BP 148/80
[2021-08-08 05:42] VITALS: RESP 16
[2021-08-08] MEDS: Omeprazole 40 MG CAPSULE.DR PO (05:44)
[2021-08-08] MEDS: Lactated Ringers 1,000 ML 100 ML IVCONT (06:11)
[2021-08-08] MEDS: Atorvastatin Calcium 10 MG TABLET PO (07:50)
[2021-08-08] MEDS: Gabapentin 600 MG TABLET 1200 MG PO (07:50)
[2021-08-08] MEDS: amLODIPine Besylate 10 MG TABLET PO (07:50)
[2021-08-08] MEDS: Heparin Sodium,Porcine 5,000 UNIT/ML VIAL 5000 UNIT SUBCUT (07:51)
[2021-08-08] MEDS: Ferrous Sulfate 324 MG TABLET.DR PO (07:51)
[2021-08-08 07:58] LABS: Glucose, Whole Blood 128 mg/dL (60-115)
--- NOTE | 2021-08-08 07:58 | PC.NURSE ---
pt alert and oriented, vss. reports chronic 5/10 pain. fluids running and meds given as documented. no complaints. will continue to monitor.
[2021-08-08 08:09] LABS: MANUAL DIFF FLAG NO
[2021-08-08 08:23] LABS: Basophils Percent Auto 0.4 % (0-2); Eosinophils Absolute Auto 0.3 X10*3/uL (0.0-0.4); Eosinophils Percent Auto 3.2 % (0-4); Hematocrit 37.1 % (42.0-52.0); Hemoglobin 12.4 g/dl (14.0-18.0); Imm Gran Abs Auto 0.02 X10*3/uL (0.00-0.03); Imm Gran Pct Auto 0.2 % (0.0-0.4); Lymphocytes Absolute Auto 1.3 X10*3/uL (1.2-4.9); Lymphocytes Percent Auto 15.9 % (20-40); Mean Corpuscular HGB Conc 33.4 g/dl (31.0-36.0); Mean Corpuscular Hemoglobin 29.4 pg (27.0-33.0); Mean Corpuscular Volume 87.9 fL (80.0-98.0); Mean Platelet Volume 10.5 fL (9.4-12.4); Monocytes Absolute Auto 0.5 X10*3/uL (0.1-1.2); Monocytes Percent Auto 6.5 % (2-11); Neutrophils Percent Auto 73.8 % (45-73); Platelet Count 195 X10*3/uL (160-400); Red Blood Count 4.22 X10*6/uL (4.60-5.80); Red Cell Distribution Width 13.5 % (11.0-16.0); White Blood Count 8.1 X10*3/uL (4.8-10.8)
--- NOTE | 2021-08-08 08:29 | PC.NURSE ---
0900 meds given early due to pt's request.
[2021-08-08 08:40] LABS: Alanine Aminotransferase 18 U/L (0-40); Albumin Level 3.3 g/dL (3.5-5.0); Alkaline Phosphatase 86 U/L (39-117); Anion Gap 14 (12-20); Aspartate Amino Transferase 24 U/L (5-37); Bilirubin Total 0.4 mg/dL (0.0-1.0); Blood Urea Nitrogen 36 mg/dL (9-16); Carbon Dioxide 21 mmol/L (22-29); Chloride 108 mmol/L (96-108); Creatinine Clr Calc Pharmacy 48.1; Estimated Glomerular Filt Rate 29; Glucose Fasting 122 mg/dL (60-99); Potassium 4.7 mmol/L (3.3-5.1); Sodium 138 mmol/L (135-145); Total Protein 6.6 g/dL (6.5-8.0)
[2021-08-08 09:06] VITALS: BP 174/93; PULSE 82; RESP 16; TEMP 36.4; O2SAT 98
--- NOTE | 2021-08-08 12:13 | PM.DS ---
DS: Providers Provider Date of Service: 08/08/21 Date of admission: 08/07/21 05:08 Date of discharge: 08/08/21 Primary care physician: Shereen Cortes MD Consults: 08/06/21 17:26 Consult to Infectious Diseases Routine Consulting Provider: Leslie Garrido Reason for consultation: One time dose of ATBX 08/07/21 05:10 Consult to Infectious Diseases Routine Consulting Provider: Leslie Garrido Reason for consultation: Osteo, port not working Has provider been notified: No DS: Diagnosis Discharge Diagnosis (1) Urinary retention: Status: Acute (2) Osteomyelitis of lumbar spine: Status: Acute DS: Summary Hospital Course Hospital Course: 56-year-old male with past medical history of diabetes on insulin, peripheral vascular disease status post left BKA, celiac disease, morbid obesity, diabetic gastroparesis, hypertension, hyperlipidemia, osteomyelitis of the spine currently being treated with IV antibiotics as well as Levaquin p.o. by Dr. Marco weston presents to the hospital with complaints of nausea and vomiting as well as urinary retention.? Patient reports his symptoms started this a.m., his for was working yesterday, he did not try it since but when the port was accessed in the ED it was leaking.? He reports that his abdominal pain has now resolved, he has no nausea or vomiting at this time.? He denies any fever or chills.? He denies any urinary symptoms including no urinary frequency or urgency but reports that he was not able to pee and does had trickles.? He denies any chest pain, no shortness of breath, no dizziness, headache or change in vision. ? denies any new numbness or tingling, no difficulty in ambulating.? uses a prosthetic leg on the left. Hospital Course Admitted/IVF's; Alexander found to be leaking...Replaced by IR. Rob placed without issue; states has not taken Opiates for back pain for some time...recently started. Symptoms shortly there after. On the day of D/C, rob removed and pt able to void. Home to f/up with ID/PCP as scheduled Time Spent with Patient Time attestation: Total time spent providing and/or coordinating discharge services: Discharge coordination time: Greater than 30 minutes Quality: Stroke Does the patient have a stroke diagnosis?: No Physical Exam Vital Signs: Vital Signs: Last Vital Signs Temp 97.5 F 08/08/21 09:06 Pulse 82 08/08/21 09:06 Resp 16 08/08/21 09:06 BP 174/93 H 08/08/21 09:06 Pulse Ox 98 08/08/21 09:06 BMI result Body Mass Index 39.0 Const: Other: no acute distress Chest: Other: Alexander site C/D/I Resp: Other: clear A/P Cardio: Other: -S4 +S1/S2 -S3 MRG GI: Other: soft NT/ND +NABS x 4 quads Extrem: Other: no edema DS: Data Data Completed and Pending Completed studies during hospitalization [Text1]: Procedures Insertion of Infusion Device into Superior Vena Cava, Percutaneous Approach (07/06/21) Insertion of Tunneled Vascular Access Device into Chest Subcutaneous Tissue and Fascia, Percutaneous Approach (07/06/21) Labs on day of discharge: Laboratory Results - last 24 hr 08/07/21 08/07/21 08/08/21 17:46 20:43 07:33 WBC RBC Hgb Hct MCV MCH MCHC RDW Plt Count MPV Immature Gran % (Auto) Neut % (Auto) Lymph % (Auto) [place] % (Auto) Eos % (Auto) Baso % (Auto) Lymph # (Auto) [place] # (Auto) Eos # (Auto) Baso # (Auto) Abs Immat Gran (auto) Absolute Neuts (auto) Absolute Nucleated RBC Nucleated RBC % (auto) Sodium Potassium Chloride Carbon Dioxide Anion Gap BUN Creatinine Estim Creat Clear Calc Estimated GFR POC Glucose 136 H 192 H 128 H Fasting Glucose Calcium Total Bilirubin AST ALT Alkaline Phosphatase Total Protein Albumin 08/08/21 08/08/21 07:38 07:38 WBC 8.1 RBC 4.22 L Hgb 12.4 L Hct 37.1 L MCV 87.9 MCH 29.4 MCHC 33.4 RDW 13.5 Plt Count 195 MPV 10.5 Immature Gran % (Auto) 0.2 Neut % (Auto) 73.8 H Lymph % (Auto) 15.9 L [place] % (Auto) 6.5 Eos % (Auto) 3.2 Baso % (Auto) 0.4 Lymph # (Auto) 1.3 [place] # (Auto) 0.5 Eos # (Auto) 0.3 Baso # (Auto) 0.0 Abs Immat Gran (auto) 0.02 Absolute Neuts (auto) 6.0 Absolute Nucleated RBC 0.000 Nucleated RBC % (auto) 0.0 Sodium 138 Potassium 4.7 Chloride 108 Carbon Dioxide 21 L Anion Gap 14 BUN 36 H Creatinine 2.38 H Estim Creat Clear Calc 48.1 Estimated GFR 29 POC Glucose Fasting Glucose 122 H Calcium 9.0 Total Bilirubin 0.4 AST 24 ALT 18 Alkaline Phosphatase 86 Total Protein 6.6 Albumin 3.3 L Discharge Plan Discharge Patient Disposition: Home, Self-Care Discharge Diagnosis: Gastroenteritis Referrals: Shereen Cortes MD [Primary Care Provider] - 1 Week Discharge Medications: Continued gabapentin 600 mg tablet 1,200 mg PO BID Qty: 60 0RF amlodipine 10 mg tablet 10 mg PO DAILY Qty: 30 3RF (DME) FreeStyle Juanito 14 Day Sensor Kit See Rx Instructions .Route Qty: 2 0RF Rx Instructions: As directed omeprazole 40 mg capsule,delayed release(DR/EC) 40 mg PO QAM Qty: 90 1RF atorvastatin 10 mg tablet 10 mg PO DAILY Qty: 30 5RF oxycodone 5 mg tablet 5 mg PO BID PRN (Reason: pain) Qty: 14 0RF daptomycin 500 mg Recon Soln 970 mg IV Q24H Qty: 39 0RF levofloxacin 750 mg tablet 750 mg PO Q48H Qty: 22 0RF Rx Instructions: stop date 08/16/21. ferrous sulfate 324 mg (65 mg iron) tablet,delayed release (DR/EC) 324 mg PO DAILY 0RF cholecalciferol (vitamin D3) 50 mcg (2,000 unit) capsule 50 mcg PO DAILY 0RF Humalog KwikPen Insulin 200 unit/mL (3 mL) insulin pen See Protocol unit subcut TIDAC 0RF Protocol: Insulin Correction Scale Less than or equal to 110 ---- Give (units): 0 111 to 150 Give (units): 0 151 to 200 Give (units): 2 201 to 250 Give (units): 4 251 to 300 Give (units): 6 301 to 350 Give (units): 8 Greater than 350 Give (units): 10 Call MD if Blood Glucose > : 350 allopurinol 100 mg tablet 100 mg PO DAILY 0RF (DME) blood sugar diagnostic Strip See Rx Instructions ea Not Applicable .MEDSUPPLY Qty: 10 0RF Rx Instructions: As directed Discharge Orders: Discharge Order (Routine); Ordered 08/08/21 Ordered By: Eleuterio Lopez Diet: advance to usual diet Activity on Discharge: As tolerated Stand Alone Forms: Patient Portal Discharge page Care Plan Goals: Continue Daptomycin/Levaquin as per Dr Garrido Health Concerns: F/up as scheduled Plan of Treatment: Ongoing with ID. Follow up with PCP as scheduled Assessment: see D/C summary
[2021-08-08] MEDS: Insulin Lispro 100 UNIT/ML 3 ML VIAL SUBCUT (13:02)
[2021-08-08 13:58] LABS: Glucose, Whole Blood 185 mg/dL (60-115)
== END 2021-08-08 13:30 | disposition home or self-care (01) | DRG 271 ==
LOC: HO.ED 08-07 01:39 → HO.EDOVER 08-07 05:18
PROVIDERS: Physician Assistant; Radiology Diagnostic Radiology; Admitting Provider Internal Medicine; Emergency Provider Emergency Medicine Emergency Medical Services; PCP Internal Medicine; Visit Provider Hospitalist
PROC: 02PY03Z Removal of Infusion Device from Great Vessel, Open Approach (ICD-10-PCS; principal; 2021-08-07 15:30)
DX: T82.534A Leakage of infusion catheter, initial encounter (principal); N17.9 Acute kidney failure, unspecified; M46.26 Osteomyelitis of vertebra, lumbar region; K52.9 Noninfective gastroenteritis and colitis, unspecified; K90.0 Celiac disease; E11.65 Type 2 diabetes mellitus with hyperglycemia; Z89.512 Acquired absence of left leg below knee; E66.01 Morbid (severe) obesity due to excess calories; Z68.39 Body mass index [BMI] 39.0-39.9, adult; Z20.822 Contact with and (suspected) exposure to COVID-19; E11.43 Type 2 diabetes mellitus with diabetic autonomic (poly)neuropathy; R33.9 Retention of urine, unspecified; K31.84 Gastroparesis; E11.69 Type 2 diabetes mellitus with other specified complication; E86.0 Dehydration; E11.51 Type 2 diabetes mellitus with diabetic peripheral angiopathy without gangrene; Z79.4 Long term (current) use of insulin; Z79.899 Other long term (current) drug therapy
CPT/HCPCS: 36415; 36558; 51798; 72158; 74176; 76937; 80048; 80053; 81001; 82947; 83690; 83735; 85025; 85652; 86140; 87635; 96361; 96365; 96375; 99285; 99291; A9585; C1751; C1769; J0878; J2405

== ENCOUNTER 2021-08-20 | Outpatient (REF) | payer MEDICARE, MEDICAID, SELFPAY ==
--- NOTE | ~2021-08-20 | IR_ITS ---
EXAMINATION: REMOVAL OF LEFT DENSON CATHETER. CLINICAL INFORMATION: Osteomyelitis of vertebra. A catheter is not needed. COMPARISON: None TECHNIQUE: The area around the right Denson catheter was cleaned in usual sterile manner. The previous dressing was removed. The skin incision was widened and the Denson catheter was slowly pulled with minimal force. The entire catheter came out without bleeding. The wound was then cleaned in a sterile fashion a simple dressing was applied postprocedure. Patient tolerated procedure extremely well. IR/IR cvc remov tunnel wo prt/soloist dancer FINDINGS/IMPRESSION: Successful removal of left Denson catheter without bleeding.
== END 2021-08-20 00:01 ==
LOC: HO.RADIR
PROVIDERS: PCP Internal Medicine; Visit Provider Internal Medicine
DX: M46.26 Osteomyelitis of vertebra, lumbar region (principal)
CPT/HCPCS: 36589

== ENCOUNTER → 2021-09-29 11:06 | Outpatient (BNVA) | payer MEDICARE, MEDICAID, SELFPAY | PROVIDERS: PCP Internal Medicine; Visit Provider Internal Medicine | DX: M46.26 Osteomyelitis of vertebra, lumbar region (principal) | CPT/HCPCS: 99212 ==

== ENCOUNTER 2021-11-13 08:55 | Outpatient (REF) | payer MEDICARE, MEDICAID, SELFPAY ==
[2021-11-13 11:40] LABS: Anion Gap 14 (12-20); Blood Urea Nitrogen 45 mg/dL (9-16); Calcium 9.2 mg/dL (8.4-10.2); Carbon Dioxide 20 mmol/L (22-29); Chloride 108 mmol/L (96-108); Cholesterol 175 mg/dL; Estimated Glomerular Filt Rate 25; Glucose Fasting 169 mg/dL (60-99); HDL Cholesterol 48 mg/dL; LDL Cholesterol Calculated 104 mg/dl; Potassium 5.2 mmol/L (3.3-5.1); Sodium 137 mmol/L (135-145); Triglycerides 117 mg/dL
[2021-11-13 11:46] LABS: PSA,Total (Free>4and<10) 1.13 ng/mL (0.00-4.00); TSH reflex Free T4 2.67 uIU/mL (0.32-4.0)
== END 2021-11-13 08:56 | disposition home or self-care (01) ==
LOC: HO.HMGCLDS 08:55
PROVIDERS: Visit Provider Internal Medicine
DX: Z00.01 Encounter for general adult medical examination with abnormal findings (principal); Z12.5 Encounter for screening for malignant neoplasm of prostate; E04.2 Nontoxic multinodular goiter; E11.21 Type 2 diabetes mellitus with diabetic nephropathy; E11.319 Type 2 diabetes mellitus with unspecified diabetic retinopathy without macular edema; E11.43 Type 2 diabetes mellitus with diabetic autonomic (poly)neuropathy; K31.84 Gastroparesis; I10 Essential (primary) hypertension; Z79.4 Long term (current) use of insulin
CPT/HCPCS: 36415; 80048; 80061; 84153; 84443

== ENCOUNTER 2022-04-21 11:24 | Emergency (ER) | payer OTHER, SELFPAY ==
--- NOTE | ~2022-04-21 | US_ITS ---
EXAMINATION: US VENOUS ULTRASOUND WITH DOPPLER LOWER EXTREMITY, RIGHT CLINICAL INFORMATION: Right lower extremity swelling. COMPARISON: 06/17/2020 TECHNIQUE: Ultrasound of the deep veins is performed from the hip to the calf with compression sonography and color and pulse Doppler assessment. Spectral analysis with color-flow imaging is performed. FINDINGS: There is normal venous compression and respiratory variation and augmented flow. The visualized common femoral vein, superficial femoral vein, profunda femoral vein, popliteal vein,, trifurcation and calf veins show no evidence of deep venous thrombosis. Left common femoral vein was scanned for comparison and was unremarkable. No Franz's cyst. If the patient's symptoms persist, followup ultrasound in 5 days 7 days might be of value to exclude proximal propagation from a non-visualized calf vein. US/US venous duplex LE RT IMPRESSION: No DVT demonstrated in the right lower extremity.
[2022-04-21 12:13] VITALS: BP 167/91; PULSE 84; RESP 18; TEMP 36.6; O2SAT 97; BMI 40.4
[2022-04-21 14:49] LABS: MANUAL DIFF FLAG NO
[2022-04-21 14:50] LABS: Basophils Percent Auto 0.3 % (0-2); Eosinophils Absolute Auto 0.2 X10*3/uL (0.0-0.4); Eosinophils Percent Auto 2.1 % (0-4); Hematocrit 34.9 % (42.0-52.0); Hemoglobin 11.5 g/dl (14.0-18.0); Imm Gran Abs Auto 0.04 X10*3/uL (0.00-0.03); Imm Gran Pct Auto 0.4 % (0.0-0.4); Lymphocytes Absolute Auto 1.9 X10*3/uL (1.2-4.9); Lymphocytes Percent Auto 19.2 % (20-40); Mean Corpuscular Hemoglobin 28.8 pg (27.0-33.0); Mean Corpuscular Volume 87.3 fL (80.0-98.0); Mean Platelet Volume 9.7 fL (9.4-12.4); Monocytes Absolute Auto 0.8 X10*3/uL (0.1-1.2); Monocytes Percent Auto 7.7 % (2-11); Neutrophils Absolute Auto 6.9 x10*3/uL (2.0-8.3); Neutrophils Percent Auto 70.3 % (45-73); Platelet Count 211 X10*3/uL (160-400); Red Cell Distribution Width 14.1 % (11.0-16.0); White Blood Count 9.8 X10*3/uL (4.8-10.8)
[2022-04-21 15:31] LABS: Anion Gap 19 (12-20); Blood Urea Nitrogen 52 mg/dL (9-16); Calcium 8.4 mg/dL (8.4-10.2); Carbon Dioxide 18 mmol/L (22-29); Chloride 108 mmol/L (96-108); Creatinine Clr Calc Pharmacy 28.3; Estimated Glomerular Filt Rate 15; Glucose Random 207 mg/dL (60-115); Potassium 4.9 mmol/L (3.3-5.1); Sodium 140 mmol/L (135-145)
[2022-04-21 17:58] LABS: Alanine Aminotransferase 12 U/L (0-40); Albumin Level 3.7 g/dL (3.5-5.0); Alkaline Phosphatase 104 U/L (39-117); Aspartate Amino Transferase 14 U/L (5-37); Bilirubin Direct < 0.2 mg/dL (0.0-0.5); Bilirubin Total 0.2 mg/dL (0.0-1.0); Magnesium 2.1 mg/dL (1.6-2.6)
[2022-04-21 18:08] LABS: B Type Natriuretic Peptide 67 pg/mL (<100)
== END 2022-04-21 19:59 | disposition left against medical advice (07) ==
PROVIDERS: Emergency Medicine Emergency Medical Services; Physician Assistant; Emergency Provider Emergency Medicine; PCP Internal Medicine
DX: R22.41 Localized swelling, mass and lump, right lower limb (principal); R53.1 Weakness; E11.9 Type 2 diabetes mellitus without complications; I10 Essential (primary) hypertension; E78.00 Pure hypercholesterolemia, unspecified; I73.9 Peripheral vascular disease, unspecified; Z89.512 Acquired absence of left leg below knee
CPT/HCPCS: 36415; 80048; 80076; 83735; 83880; 85025; 93971; 99281; 99284

== ENCOUNTER 2022-10-14 07:58 | Outpatient (REF) | payer OTHER, MEDICAID, SELFPAY ==
--- NOTE | ~2022-10-14 | XR_ITS ---
EXAMINATION: XR LUMBOSACRAL SPINE WITH OBLIQUES CLINICAL INFORMATION: M54.50 - Low back pain, unspecified COMPARISON: MR lumbar spine 08/07/2021, CT abdomen and pelvis 08/07/2021, lumbar radiographs 04/02/2019 TECHNIQUE: Lumbar spine is imaged in 5 views including oblique projections. FINDINGS: There is normal lumbar segmentation with 5 nonrib-bearing lumbar vertebrae of normal height and normal lumbar lordosis. There is no lumbar vertebral compression, spondylolisthesis, spondylolysis, or destructive process. Again, there are degenerative disc changes lower thoracic and upper to mid lumbar spine, greatest at L2-L3 with disc narrowing and endplate sclerosis and vacuum disc. There are scattered bulky lateral and anterior bridging osteophytes lower thoracic and upper lumbar spine. The SI joints and visualized sacrum are unremarkable. XR/XR lumbar spine 4V min IMPRESSION: -Degenerative disc changes lower thoracic and upper to mid lumbar spine. -No vertebral compression, spondylolisthesis, spondylolysis.
== END 2022-10-14 07:59 | disposition home or self-care (01) ==
LOC: HO.HMGCX 07:58
PROVIDERS: PCP Internal Medicine; Visit Provider Internal Medicine
DX: M54.50 Low back pain, unspecified (principal); G89.29 Other chronic pain
CPT/HCPCS: 72110

== ENCOUNTER → 2022-10-26 10:27 | Outpatient (BNVA) | payer OTHER, MEDICAID, SELFPAY | PROVIDERS: PCP Internal Medicine; Visit Provider Nurse Practitioner Family | DX: M54.50 Low back pain, unspecified (principal); M51.36 Other intervertebral disc degeneration, lumbar region; M54.16 Radiculopathy, lumbar region; G89.29 Other chronic pain; Z98.890 Other specified postprocedural states; Z87.39 Personal history of other diseases of the musculoskeletal system and connective tissue | CPT/HCPCS: 99212 ==

== ENCOUNTER 2023-02-03 07:24 | Outpatient (REF) | payer OTHER, MEDICAID, SELFPAY ==
--- NOTE | ~2023-02-03 | MR_ITS ---
EXAMINATION: MR LUMBAR SPINE WITHOUT CONTRAST CLINICAL INFORMATION: Low back pain. History of osteomyelitis. Kidney disease. COMPARISON: Lumbar spine MRI 08/07/2021. TECHNIQUE: MRI of the lumbar spine was obtained using routine sequences without contrast. FINDINGS: There is slight grade 1 retrolisthesis of L2 on L3. Alignment is otherwise normal. Vertebral heights are preserved. There are mixed predominantly type II and type III degenerative endplate changes at L2-L3 and L3-L4. Minimal type II degenerative endplate changes at L1-L2. There is loss of intervertebral disc height and T2 signal intensity at multiple levels related to disc degeneration. The tip of the conus medullaris is located at L1-L2. No mass effect on the conus. Visualized distal cord signal intensity is normal. At T12-L1 there is a right central protrusion. No canal stenosis. No mass effect on the traversing or foraminal nerve roots. At L1-L2 there is a tiny left central protrusion superimposed upon a slightly bulging disc. No canal stenosis. No mass effect on the traversing or foraminal nerve roots. At L2-L3 there is a diffusely bulging disc. Advanced bilateral facet degenerative change. Mild to moderate canal stenosis. Mild mass effect on the foraminal/extraforaminal segment of the right L2 nerve root. At L3-L4 there is a diffusely bulging disc. Bilateral facet degenerative change. Mild to moderate canal stenosis. Partial effacement of the perineural fat with mild mass effect on the left L3 foraminal nerve roots. At L4-L5 there is a slightly bulging disc. Bilateral facet degenerative change. No canal stenosis. Mild mass effect on both L4 foraminal nerve roots. At L5-S1 there is a slightly bulging disc. Bilateral facet degenerative change. No canal stenosis. No mass effect on the traversing or foraminal nerve roots. Limited visualization of the retroperitoneal anatomy reveals a few well marginated benign-appearing cystic lesions within the left kidney. Psoas and paraspinal muscle groups are symmetric. MR/MR lumbar spine wo con IMPRESSION: There is multilevel degenerative spondylosis of the lumbar spine with slight grade 1 retrolisthesis of L2 on L3. Mild to moderate canal stenosis at L2-L3 and L3-L4. There is mild mass effect on the foraminal segments the nerve roots at multiple levels as described above. Although this examination is limited due to the absence of intravenous contrast there is no worrisome bone marrow edema and no discrete drainable fluid collection to suggest active infection at this time.
== END 2023-02-03 07:25 | disposition home or self-care (01) ==
LOC: HO.MRI 07:24
PROVIDERS: PCP Internal Medicine; Visit Provider Nurse Practitioner Family
DX: G89.29 Other chronic pain (principal); M51.36 Other intervertebral disc degeneration, lumbar region; M54.50 Low back pain, unspecified; Z98.890 Other specified postprocedural states
CPT/HCPCS: 72148

== ENCOUNTER 2023-03-29 11:22 | Outpatient (AMB) | payer OTHER, MEDICAID, SELFPAY ==
[2023-03-29 11:56] VITALS: BP 128/72; PULSE 77; O2SAT 99; BMI 37.4
--- NOTE | 2023-03-29 11:56 | MHC.PC.OV ---
Vital Signs 03/29/23 11:56 Height 5 ft 11 in Weight 268 lb BMI 37.4 BP 128/72 Blood Pressure Location Rt brachial Position Sitting Pulse 77 Pulse Source Pulse Oximeter Pulse Oximetry (%) 99 Oxygen Delivery Method Room Air Intake Visit Reasons: follow up appt Intake Note: patent is here today for his f/u lazarus Allergies cephalexin [CEPHALEXIN] Allergy (Intermediate, Verified 03/31/23 08:28) UNABLE TO MOVE ENTIRE BODY, chills and fever, nausea, chills, fever, and nausea metformin [METFORMIN] Adverse Reaction (Intermediate, Verified 03/31/23 08:28) ADVISED NOT TO TAKE ANYMORE,SHAKEY,STOMACH PAINS, stomach upset, stomach upset Medication List - Last Reconciled 03/29/23 by Shereen Cortes MD allopurinol 100 mg PO DAILY amlodipine 10 mg PO DAILY atorvastatin 10 mg PO DAILY blood sugar diagnostic As directed bumetanide 1 mg PO BID carvedilol 6.25 mg PO Q12H flash glucose sensor (FreeStyle Juanito 14 Day Sensor kit) As directed gabapentin 300 mg PO DAILY insulin aspart U-100 (Novolog FlexPen U-100 Insulin aspart) subcut insulin glargine U-300 conc (Toujeo SoloStar U-300 Insulin) 6 units subcut BEDTIME [Left ocwnj-uyu-vpnb prosthetic As directed NS] pen needle, diabetic (BD Ultra-Fine Short Pen Needle) As directed sevelamer carbonate 800 mg PO TID Tobacco use date assessed: 03/29/23 Dental Screening Dental Screen Date: 03/29/23 Did you have a dental visit in the last 12 months?: No Did you have a dental problem in the last 6 months where you did not have access to dental care?: No Was dental information given to patient?: No HPI follow up appt HPI Details 57year old Male with chronic kidney disease stage 5, morbid obesity status post gastric sleeve in 2020, type 2 diabetes mellitus currently on insulin, benign prostatic hyperplasia, hyperlipidemia, hypertension, peripheral vascular disease status post BKA left and s/p right 4th toe amputation, multinodular goiter, who is here today for follow-up after recent admission at [facility] complaining of shortness of breath for the last several days with bilateral leg swelling. This started after he had his AV fistula in his left wrist done in preparation to starting dialysis. At the ER his blood pressure was 202/100 and was treated for fluid overload. Chest x-ray was done which showed presence of pulmonary vascular congestion with small left pleural effusion, EKG showed normal sinus rhythm with nonspecific ST-T abnormalities. Nephrology was consulted and he was seen during his admission, started on IV , PermCath placed as his AV fistula was not mature yet and hemodialysis initiated, with marked improvement of symptoms. He is now going to outpatient dialysis at [facility] and continue on a renal diet. He was discharged on Bumex 1 mg twice a day, carvedilol 6.25 mg twice a day, amlodipine 10 mg daily. With regards to his diabetes mellitus, he was continued on his home insulin regimen, continued on tamsulosin for his BPH and continue on Lipitor 10 mg daily for Hyperlipidemia. He needs a new left BKA prosthesis, as he has lost a significant amount of weight and his left stump is not fitting well and is chafing when he wears his old left BKA prosthesis. . [facility] Medical History (Updated 03/31/23 @ 17:15 by Shereen Cortes MD) Vitamin D deficiency Osteomyelitis of toe of right foot Chronic kidney disease, stage 5 Chronic low back pain Pericardial effusion Cellulitis of right lower leg Major depressive disorder Diabetes mellitus with retinopathy Diabetes mellitus with diabetic nephropathy, with long-term current use of insulin Dyslipidemia Diabetic gastroparesis associated with type 2 diabetes mellitus Morbid obesity Celiac disease Diabetic neuropathy associated with type 2 diabetes mellitus Non-toxic multinodular goiter Hypertension Renal calculi Gastroparesis Hypercholesterolemia Peripheral vascular disease Surgical History Status post amputation of lesser toe of right foot S/P laparoscopic sleeve gastrectomy Hx of colonoscopy History of below-knee amputation (~06/28/17) History of lobectomy of thyroid (~03/25/15) History of esophagogastroduodenoscopy (EGD) (~09/26/13) History of repair of ACL (~2004) History of skin graft (~1993) Family History Father Hypertension Diabetes Mother No problems noted. Sister Mental health disorder Social History Household Members: Spouse Housing: Apartment Do you presently have visiting nurse or other home services: No Alcohol intake: never Patient Tobacco Use Status: Never used Tobacco e-Cigarette/Vaping Use: Never Used service: No Current occupational status: disabled Cognitive needs: No Hearing needs: No Vision needs: No Questionnaire Thrive Questionnaire Date Thrive assessed: 11/11/21 AUDIT C Alcohol Use Questionnaire (AUDIT-C) 1. How often do you have a drink containing alcohol?: Never Total Score: 0 SALUD-7 AMB Questionnaire SALUD-7 Date SALUD - 7 assessed: 07/15/22 Source: Developed by Drs. Donte Pope, Holly Wu, Gama So and colleagues, with an educational easton from [employer]. Review of Systems Const Denies fever(s), Denies headache(s) and Denies weakness Eyes Denies change in vision ENT Denies headache(s) Card Denies chest pain, Denies irregular heart rhythm, Denies lightheadedness, Denies palpitations and Denies dyspnea Resp Denies chest congestion, Denies cough and Denies dyspnea GI Denies abdominal pain, Denies change in bowel habits and Denies heartburn Denies hematuria, Denies difficulty urinating, Denies dysuria, Denies urinary frequency and Denies urinary urgency Musc Details: Chafed skin on left BKA stump reported after wearing old prosthesis Skin/Breast Denies rash Neuro Denies headache(s) and Denies weakness Psych Reports no additional complaints Endo Denies polydipsia, Denies polyuria and Denies palpitations Flakito/Lymph Reports as per HPI, Denies easy bleeding and Denies easy bruising Aller/Immun Denies seasonal rhinorrhea Physical exam (Primary Care) Vital Signs: Last Vital Signs Pulse 77 03/29/23 11:56 BP 128/72 03/29/23 11:56 Pulse Ox 99 03/29/23 11:56 Oxygen Delivery Method Room Air 03/29/23 11:56 BMI result Body Mass Index 37.4 Tobacco/Smoking Status: Tobacco use Status Tobacco use date assessed 03/29/23 03/29/23 12:00 Patient Tobacco Use Status Never used Tobacco 03/29/23 11:57 e-Cigarette/Vaping Use Never Used 03/29/23 11:57 Thrive Assessment: Date of Thrive Assessment Date Thrive assessed 11/11/21 03/29/23 11:57 Const General: cooperative, comfortable and alert Nutritional Appearance: obese morbidly obese Orientation/consciousness: patient oriented x3 HENMT Other: Ambulatory with assistance of his left leg prosthesis, in no acute distress, accompanying patient Ears: external ears normal General nose exam: Normal external nose present Face and sinus: Yes face symmetric Mouth: Normal oral and palatal mucosa present and moist mucous membranes Eyes General: appearance normal, both eyes and all related structures Neck Neck: Yes full ROM, Yes no lymphadenopathy and Yes supple Resp Effort & Inspection: normal respiratory effort and able to speak in complete sentences Auscultation: clear to auscultation bilaterally Cardio Rate: regular rate Rhythm: regular rhythm Heart sounds: S1 normal heart sound present and S2 normal heart sound present GI Inspection: Yes obesity Palpation (GI): Soft to palpation, nontender, no guarding and no masses Auscultation: normal bowel sounds General: Yes no CVA tenderness Back/Spine/Pelvis Back: no CVA tenderness Skin Other: erythematous patch on left BKA stump Neuro General: patient oriented x3, tone normal, moves all extremities, Normal light touch and pain sensation and no focal motor deficits Extrem Other: Left leg prosthesis intact Results AMB Hemoglobin A1c AMB Hemoglobin A1c 6.0 % Last Edit by Elizabeth Hill CMA on 03/29/23 13:09 Results Reviewed Results Reviewed: Laboratory Last Values Hgb A1c (Clinic) 6.0 % (4.0-6.0) 03/29/23 13:07 ENTERED: 03/29/23-[address]: ORDERED: AST, ALT, Lipid Panel, Vitamin D 25-OH Test Result Flag Reference Site AST (GOT) 13 5-37 U/L ALT (GPT) 11 0-40 U/L Triglyceride 81 <150 mg/dL Desirable Triglyceride: less than 150 mg/dL Borderline High Triglyceride 150-199 mg/dL High Triglyceride: 200-499 mg/dL Very High Triglyceride: greater than or equal to 5OO mg/dL Cholesterol 136 <200 mg/dL Desirable Cholesterol: less than 200 mg/dL Borderline High Cholesterol: 200-239 mg/dL High Cholesterol: greater than 239 mg/dL LDL Calculated 69 <100 mg/dL Desirable LDL: less than 100 mg/dL Near Optimal/Above Optimal LDL: 110-129 mg/dL Borderline High LDL: 130-159 mg/dL High LDL: 160-189 mg/dL Very High LDL: greater than or equal to 190 mg/dL HDL 51 >40 mg/dL Desirable HDL: greater than 40 mg/dL Note: This HDL assay may give artificially low results in patients with liver disease. Vit D 25-OH Tot 25.5 >30 ng/mL Health Based Reference Values* < 20 ng/mL Deficient 20-30 ng/mL Insufficient > 30 ng/mL Sufficient Assessment and Plan Assessment & Plan (1) Diabetes mellitus with diabetic nephropathy, with long-term current use of insulin: Comment: now sees Dr Raya at [facility] Code(s): E11.21 - Type 2 diabetes mellitus with diabetic nephropathy; Z79.4 - [facility] (current) use of insulin Plan: Currently using freestyle Juanito to monitor blood sugars, currently on Toujeo 6 units at night. Followed at [place] [facility], sees Dr. Raya (2) Hx of BKA: Code(s): Z89.519 - Acquired absence of unspecified leg below knee Qualifiers: Laterality: left Qualified Code(s): Z89.512 - Acquired absence of left leg below knee Plan: Needs a new left leg prosthesis as he has lost weight and left BKA stump is not fitting well with old prosthesis (3) PAD (peripheral artery disease): Code(s): I73.9 - Peripheral vascular disease, unspecified Plan: Stressed importance of getting diabetes, hypertension, cholesterol levels under good control (4) Chronic kidney disease, stage 5: Comment: Followed by Dr. Catalino Mancia Code(s): N18.5 - Chronic kidney disease, stage 5 Plan: Followed by Nephrology, currently undergoing hemodialysis (5) Dyslipidemia: Code(s): E78.5 - Hyperlipidemia, unspecified Plan: Continue atorvastatin 10 mg daily, and reminded about adherence to low-cholesterol diet and staying active fasting lipids ordered today showed LDL cholesterol at 69 mg/dL , triglycerides 81 and HDL 51 mg/dL. (6) Vitamin D deficiency: Code(s): E55.9 - Vitamin D deficiency, unspecified Plan: Vitamin-D level is at 25. Prescription was [place] 3 [place] [address] units per capsule to take once a week for the next 3 months. 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
== END 2023-03-29 13:11 | disposition home or self-care (01) ==
PROVIDERS: PCP Internal Medicine; Visit Provider Internal Medicine
DX: E11.21 Type 2 diabetes mellitus with diabetic nephropathy (principal); Z79.4 Long term (current) use of insulin
CPT/HCPCS: 83036; 99214

== ENCOUNTER 2023-03-29 13:04 | Outpatient (REF) | payer OTHER, MEDICAID, SELFPAY ==
[2023-03-29 16:36] LABS: Alanine Aminotransferase 11 U/L (0-40); Aspartate Amino Transferase 13 U/L (5-37); Cholesterol 136 mg/dL (<200); HDL Cholesterol 51 mg/dL (>40); LDL Cholesterol Calculated 69 mg/dL (<100); Triglycerides 81 mg/dL (<150)
[2023-03-29 16:44] LABS: Vitamin D 25-OH Total 25.5 ng/mL (>30)
== END 2023-03-29 13:05 | disposition home or self-care (01) ==
LOC: HO.HMGCLDS 13:04
PROVIDERS: PCP Internal Medicine; Visit Provider Internal Medicine
DX: E11.21 Type 2 diabetes mellitus with diabetic nephropathy (principal); Z79.4 Long term (current) use of insulin; E66.01 Morbid (severe) obesity due to excess calories; I10 Essential (primary) hypertension; E78.5 Hyperlipidemia, unspecified; F32.9 Major depressive disorder, single episode, unspecified
CPT/HCPCS: 36415; 80061; 82306; 84450; 84460

== ENCOUNTER 2023-08-24 11:30 | Outpatient (AMB) | payer OTHER, SELFPAY ==
[2023-08-24 12:04] VITALS: BP 126/74; PULSE 82; O2SAT 95; BMI 41.3
--- NOTE | 2023-08-24 12:04 | MHC.PC.OV ---
Vital Signs 08/24/23 12:04 Height 5 ft 11 in Weight 296 lb 4 oz BMI 41.3 BP 126/74 Blood Pressure Location Lt brachial Position Sitting Pulse 82 Pulse Source Pulse Oximeter Pulse Oximetry (%) 95 Oxygen Delivery Method Room Air Intake Visit Reasons: Back Pain Intake Note: Pt is here today for back and shoulder pain. Pt states due to arthritis. Pain started 2wks ago. Allergies cephalexin [CEPHALEXIN] Allergy (Intermediate, Verified 08/28/23 00:14) UNABLE TO MOVE ENTIRE BODY, chills and fever, nausea, chills, fever, and nausea metformin [METFORMIN] Adverse Reaction (Intermediate, Verified 08/28/23 00:14) ADVISED NOT TO TAKE ANYMORE,SHAKEY,STOMACH PAINS, stomach upset, stomach upset Medication List - Last Reconciled 08/28/23 by Shereen Cortes MD allopurinol 100 mg PO DAILY amlodipine 10 mg PO DAILY atorvastatin 10 mg PO DAILY blood sugar diagnostic As directed bumetanide 1 mg PO BID carvedilol 6.25 mg PO Q12H cholecalciferol (vitamin D3) 1,250 mcg PO QWEEK 3 months flash glucose sensor (FreeStyle Juanito 14 Day Sensor kit) As directed gabapentin 300 mg PO DAILY insulin aspart U-100 (Novolog FlexPen U-100 Insulin aspart) subcut insulin glargine U-300 conc (Toujeo SoloStar U-300 Insulin) 6 units subcut BEDTIME [Left [id number]-[id number]-ebbq prosthetic As directed NS] pen needle, diabetic (BD Ultra-Fine Short Pen Needle) As directed sevelamer carbonate 800 mg PO TID Tobacco use date assessed: 08/24/23 Dental Screening Dental Screen Date: 08/24/23 Did you have a dental visit in the last 12 months?: No Did you have a dental problem in the last 6 months where you did not have access to dental care?: No Was dental information given to patient?: Patient has dentist HPI Back Pain HPI Details 58 year old male with chronic kidney disease stage 5 currently on peritoneal dialysis, morbid obesity status post gastric sleeve in 2020, type 2 diabetes mellitus currently on insulin, benign prostatic hyperplasia, hyperlipidemia, hypertension, peripheral vascular disease status post BKA left and s/p right 4th toe amputation, multinodular goiter, presenting today complaining of a 2 week history of progressive pain across lower back radiating down both lower extremities as well as chronic pain in his right shoulder joint present now for the last several months, not improving. He has history of lumbar disc herniation and septic diskitis of lumbar region last 2021 status post left L2-3 diskectomy on 10/05/[address] Burgess. He denies any recent fall, no injury. Pain unrelieved with taking tramadol or Tylenol. Unable to walk or stand for prolonged periods of time due to pain. He had an MRI of his lumbar sacral spine done in January 2023 which showed multilevel disc disease with spinal stenosis and some impingement on nerve roots already seen. Unable to take gabapentin as he started developing head tremors. [facility] Medical History (Updated 08/24/23 @ 13:01 by Shereen Cortes MD) Chronic right shoulder pain Spinal stenosis of lumbosacral region with radiculopathy Vitamin D deficiency Osteomyelitis of toe of right foot Chronic kidney disease, stage 5 Chronic low back pain Pericardial effusion Cellulitis of right lower leg Major depressive disorder Diabetes mellitus with retinopathy Diabetes mellitus with diabetic nephropathy, with long-term current use of insulin Dyslipidemia Diabetic gastroparesis associated with type 2 diabetes mellitus Morbid obesity Celiac disease Diabetic neuropathy associated with type 2 diabetes mellitus Non-toxic multinodular goiter Hypertension Renal calculi Gastroparesis Hypercholesterolemia Peripheral vascular disease Surgical History Status post amputation of lesser toe of right foot S/P laparoscopic sleeve gastrectomy Hx of colonoscopy History of below-knee amputation (~06/28/17) History of lobectomy of thyroid (~03/25/15) History of esophagogastroduodenoscopy (EGD) (~09/26/13) History of repair of ACL (~2004) History of skin graft (~1993) Family History Father Hypertension Diabetes Mother No problems noted. Sister Mental health disorder Social History Household Members: Spouse Housing: Apartment Do you presently have visiting nurse or other home services: No Alcohol intake: never Comment: refuses alarm Patient Tobacco Use Status: Never used Tobacco e-Cigarette/Vaping Use: Never Used service: No Current occupational status: disabled Cognitive needs: No Hearing needs: No Vision needs: No Questionnaire Thrive Questionnaire Date Thrive assessed: 11/11/21 AUDIT C Alcohol Use Questionnaire (AUDIT-C) 1. How often do you have a drink containing alcohol?: Never 3. How often do you have six or more drinks on one occasion?: Never Total Score: 0 Score Reviewed/Action Taken: Yes SALUD-7 AMB Questionnaire SALUD-7 Date SALUD - 7 assessed: 07/15/22 Source: Developed by Drs. Donte Pope, Holly Wu, Gama So and colleagues, with an educational easton from [employer]. Review of Systems Const Denies chills, Denies fever(s) and Reports malaise Eyes Denies change in vision ENT Reports no additional complaints Card Denies chest pain, Denies irregular heart rhythm, Denies lightheadedness, Denies palpitations and Denies dyspnea Resp Denies chest congestion, Denies cough and Denies dyspnea GI Denies abdominal pain, Denies change in bowel habits, Denies change in stool character and Denies heartburn Reports no additional complaints and Denies urinary urgency Musc Reports as per HPI Neuro Reports no additional complaints Endo Denies polydipsia and Denies palpitations Flakito/Lymph Reports as per HPI, Denies easy bleeding and Denies easy bruising Aller/Immun Denies seasonal rhinorrhea Physical exam (Primary Care) Vital Signs: Last Vital Signs Pulse 82 08/24/23 12:04 BP 126/74 08/24/23 12:04 Pulse Ox 95 08/24/23 12:04 Oxygen Delivery Method Room Air 08/24/23 12:04 BMI result Body Mass Index 41.3 Tobacco/Smoking Status: Tobacco use Status Tobacco use date assessed 08/24/23 08/24/23 12:09 Patient Tobacco Use Status Never used Tobacco 08/24/23 12:09 e-Cigarette/Vaping Use Never Used 08/24/23 12:09 Thrive Assessment: Date of Thrive Assessment Date Thrive assessed 11/11/21 08/24/23 12:09 Const General: comfortable and alert Nutritional Appearance: obese morbidly obese Orientation/consciousness: patient oriented x3 HENMT Other: Ambulatory with assistance of his left leg prosthesis, in no acute distress, accompanying patient Ears: external ears normal General nose exam: Normal external nose present Face and sinus: Yes face symmetric Mouth: Normal oral and palatal mucosa present and moist mucous membranes Eyes General: appearance normal, both eyes and all related structures Neck Neck: Yes full ROM, Yes no lymphadenopathy and Yes supple Resp Effort & Inspection: normal respiratory effort and able to speak in complete sentences Auscultation: clear to auscultation bilaterally Cardio Rate: regular rate Rhythm: regular rhythm Heart sounds: S1 normal heart sound present and S2 normal heart sound present GI Inspection: Yes obesity Palpation (GI): Soft to palpation, nontender, no guarding and no masses Auscultation: normal bowel sounds Back/Spine/Pelvis Thoracic/Lumbar Spine: pain with thoraco-lumbar ROM and paraspinal muscle tenderness Skin Other: erythematous patch on left BKA stump Neuro General: patient oriented x3, tone normal, moves all extremities, Normal light touch and pain sensation and no focal motor deficits Extrem Other: Left leg prosthesis intact Assessment and Plan Assessment & Plan (1) Lumbar degenerative disc disease: Code(s): M51.36 - Other intervertebral disc degeneration, lumbar region Plan: Referred back to Dr. Elly Burgess for further evaluation and management. Patient had lumbar MRI done January 2023 which showed multilevel disc disease with spinal stenosis and some impingement on nerve roots already seen. Unable to take gabapentin as he started developing head tremors (2) Spinal stenosis of lumbosacral region with radiculopathy: Code(s): M48.07 - Spinal stenosis, lumbosacral region; M54.17 - Radiculopathy, lumbosacral region Plan: Referred back to Dr. Burgess his neurosurgeon for further evaluation management, unable to take NSAIDs, due to s= severe CKD, only taking Tylenol as needed which affords only mineral please (3) Chronic right shoulder pain: Code(s): M25.511 - Pain in right shoulder; G89.29 - Other chronic pain Plan: MRI of right shoulder without contrast ordered Orders: Orders MR shoulder RT wo con 08/24/23 G89.29 - Other chronic pain, M25.511 - Pain in right shoulder Referrals Neurosurgery Referral M48.00 - Spinal stenosis, site unspecified, M48.07 - Spinal stenosis, lumbosacral region, M51.36 - Other intervertebral disc degeneration, lumbar region, M54.17 - Radiculopathy, lumbosacral region, Z98.890 - Other specified postprocedural states Coding Level of Care Code Est Pt Level 3 (80805) Diagnoses Lumbar degenerative disc disease M51.36 Spinal stenosis of lumbosacral region with radiculopathy M48.07; M54.17 Chronic right shoulder pain M25.511; G89.29
== END 2023-08-24 15:36 | disposition home or self-care (01) ==
PROVIDERS: PCP Internal Medicine; Visit Provider Internal Medicine
DX: M51.36 Other intervertebral disc degeneration, lumbar region (principal); M48.07 Spinal stenosis, lumbosacral region; M54.17 Radiculopathy, lumbosacral region; M25.511 Pain in right shoulder; G89.29 Other chronic pain
CPT/HCPCS: 99213

== ENCOUNTER 2023-11-30 11:27 | Outpatient (AMB) | payer OTHER, SELFPAY ==
--- NOTE | 2023-11-30 11:58 | A.OFFPC_ITS ---
Vital Signs 11/30/23 11:59 Height 5 ft 11 in Weight 275 lb BMI 38.4 BP 108/70 Blood Pressure Location Rt brachial Position Sitting Pulse 87 Pulse Source Pulse Oximeter Pulse Oximetry (%) 97 Oxygen Delivery Method Room Air Intake Visit Reasons: Concern Lump on Chest Intake Note: Pt is here today concerns of a lump on mid upper chest Allergies cephalexin [CEPHALEXIN] Allergy (Intermediate, Verified 11/30/23 12:05) UNABLE TO MOVE ENTIRE BODY, chills and fever, nausea, chills, fever, and nausea metformin [METFORMIN] Adverse Reaction (Intermediate, Verified 11/30/23 12:05) ADVISED NOT TO TAKE ANYMORE,SHAKEY,STOMACH PAINS, stomach upset, stomach upset Medication List - Last Reconciled 11/30/23 by Shereen Cortes MD allopurinol 100 mg PO DAILY amlodipine 10 mg PO DAILY atorvastatin 10 mg PO DAILY blood sugar diagnostic As directed bumetanide 1 mg PO BID carvedilol 6.25 mg PO Q12H cholecalciferol (vitamin D3) 1,250 mcg PO QWEEK 3 months flash glucose sensor (FreeStyle Juanito 14 Day Sensor kit) As directed insulin aspart U-100 (Novolog FlexPen U-100 Insulin aspart) subcut insulin glargine U-300 conc (Toujeo SoloStar U-300 Insulin) 6 units subcut BEDTIME [Left fhqos-vil-ucxc prosthetic As directed NS] pen needle, diabetic (BD Ultra-Fine Short Pen Needle) As directed sevelamer carbonate 800 mg PO TID Tobacco use date assessed: 11/30/23 Dental Screening Dental Screen Date: 11/30/23 Did you have a dental visit in the last 12 months?: Yes Did you have a dental problem in the last 6 months where you did not have access to dental care?: Yes Was dental information given to patient?: Patient has dentist HPI Concern Lump on Chest HPI Details 68-year-old male here today wanting to h ave a mass on the middle of his chest checked. This just appeared several days ago, not painful, with no discharge. He also has been having difficulty swallowing, and gets severe pains in epigastric area when he eats.. This has been present now for the last several weeks and progressively getting worse. Even finds it difficult to drink water, and would throw up after eating. He has history of diabetic gastroparesis. [facility] Medical History (Updated 11/30/23 @ 12:12 by Shereen Cortes MD) Difficulty swallowing Epigastric pain syndrome Chronic right shoulder pain Spinal stenosis of lumbosacral region with radiculopathy Vitamin D deficiency Osteomyelitis of toe of right foot Chronic kidney disease, stage 5 Chronic low back pain Pericardial effusion Cellulitis of right lower leg Major depressive disorder Diabetes mellitus with retinopathy Diabetes mellitus with diabetic nephropathy, with long-term current use of insulin Dyslipidemia Diabetic gastroparesis associated with type 2 diabetes mellitus Morbid obesity Celiac disease Diabetic neuropathy associated with type 2 diabetes mellitus Non-toxic multinodular goiter Hypertension Renal calculi Gastroparesis Hypercholesterolemia Peripheral vascular disease Surgical History Status post amputation of lesser toe of right foot S/P laparoscopic sleeve gastrectomy Hx of colonoscopy History of below-knee amputation (~06/28/17) History of lobectomy of thyroid (~03/25/15) History of esophagogastroduodenoscopy (EGD) (~09/26/13) History of repair of ACL (~2004) History of skin graft (~1993) Family History Father Hypertension Diabetes Mother No problems noted. Sister Mental health disorder Social History Household Members: Spouse Housing: Apartment Do you presently have visiting nurse or other home services: No Alcohol intake: never Comment: refuses alarm Patient Tobacco Use Status: Never used Tobacco e-Cigarette/Vaping Use: Never Used service: No Current occupational status: disabled Cognitive needs: No Hearing needs: No Vision needs: No Questionnaire PHQ-9 Over the last 2 weeks, how often have you been bothered by any of the following problems? 1. Little interest or pleasure in doing things: not at all 2. Feeling down, depressed, or hopeless: not at all 3. Trouble falling or staying asleep, or sleeping too much: not at all 4. Feeling tired or having little energy: not at all 5. Poor appetite or overeating: not at all 6. Feeling bad about yourself - or that you are a failure or have let yourself or your family down: not at all 7. Trouble concentrating on things, such as reading the newspaper or watching television: not at all 8. Moving or speaking so slowly that other people could have noticed. Or the opposite - being so fidgety or restless that you have been moving around a lot more than usual: not at all 9. Thoughts that you would be better off or of hurting yourself in some way: not at all Total score: 0 Depression Screening Interpretation: Negative Depression Screening Done: Yes 07820 - PHQ-9 Billing: Yes Source: Developed by Drs. Donte Pope, Holly Wu, Gama So and colleagues, with an educational easton from [employer]. Thrive Questionnaire Date Thrive assessed: 11/30/23 I am a: Patient What is your living situation today?: I have a steady place to live Within the past 12 months, did the food you bought not last and you didn't have the money to get more?: Never true Within the past 12 months, did you worry whether your food would run out before you got money to buy more?: Never true Do you have trouble paying for medicines?: No Do you have trouble getting transportation to medical appointments?: No Do you have trouble paying your heating and electricity bill?: No Do you have trouble taking care of your child, family member or friend?: No Do you have trouble with day-to-day activities such as bathing, preparing meals, shopping, managing finances, etc.?: No Are you currently unemployed and looking for a job?: No Are you interested in more education?: No THRIVE Score: 0 AUDIT C Alcohol Use Questionnaire (AUDIT-C) 1. How often do you have a drink containing alcohol?: Never Total Score: 0 SALUD-7 AMB Questionnaire SALUD-7 Date SALUD - 7 assessed: 11/30/23 Feeling nervous, anxious, or on edge: 3 = Nearly every day Not being able to stop or control worryin = Several days Worrying too much about different things: 1 = Several days Trouble relaxin = Several days Being so restless that it is hard to sit still: 1 = Several days Becoming easily annoyed or irritable: 3 = Nearly every day Feeling afraid as if something awful might happen: 1 = Several days Total SALUD-7 score (0-4 normal; 5-9 mild; 10-14 moderate; 15-21 severe): 11 Source: Developed by Drs. Donte Pope, Holly Wu, Gama So and colleagues, with an educational easton from [employer]. SALUD-7 Assessment Billing SALUD-7 Assessment Tool: SALUD-7 Assessment 74360 Review of Systems Const Reports as per HPI Physical exam (Primary Care) Vital Signs: Last Vital Signs Pulse 87 11/30/23 11:59 BP 108/70 11/30/23 11:59 Pulse Ox 97 11/30/23 11:59 Oxygen Delivery Method Room Air 11/30/23 11:59 BMI result Body Mass Index 38.4 Tobacco/Smoking Status: Tobacco use Status Tobacco use date assessed 11/30/23 11/30/23 12:03 Patient Tobacco Use Status Never used Tobacco 11/30/23 12:03 e-Cigarette/Vaping Use Never Used 11/30/23 12:03 PHQ-9: PHQ-9 Score PHQ-9: Total score 0 11/30/23 12:30 Depression Screening Interpretation: Negative Thrive Assessment: Date of Thrive Assessment Date Thrive assessed 11/30/23 11/30/23 12:05 Const General: alert Nutritional Appearance: obese morbidly obese ALAN Other: Ambulatory with assistance of his left leg prosthesis, in no acute distress, accompanying patient General nose exam: Normal external nose present Face and sinus: Yes face symmetric Mouth: Normal oral and palatal mucosa present and moist mucous membranes Neck Neck: Yes full ROM, Yes no lymphadenopathy and Yes supple Chest Other: Raised slightly erythematous mass on lower part of sternum, nontender to palpation Resp Effort & Inspection: normal respiratory effort and able to speak in complete sentences Auscultation: clear to auscultation bilaterally Cardio Rate: regular rate Rhythm: regular rhythm Heart sounds: S1 normal heart sound present and S2 normal heart sound present GI Inspection: Yes obesity Palpation (GI): Soft to palpation, Tenderness to palpation present (GI) in the epigastrum, no guarding and no masses Auscultation: normal bowel sounds Extrem Other: Left leg prosthesis intact Assessment and Plan Assessment & Plan (1) Mass of skin of chest: Code(s): R22.2 - Localized swelling, mass and lump, trunk Plan: Referred to general surgery for further evaluation management. (2) Epigastric pain syndrome: Code(s): R10.13 - Epigastric pain Plan: Upper GI series ordered, referred to GI Clinic for further evaluation management, prescription sent for omeprazole 40 mg per capsule to take once a day an hour before eating. If symptoms worsens, unable to eat or drink, advised to go to the ER (3) Difficulty swallowing: Code(s): R13.10 - Dysphagia, unspecified Plan: Upper GI series ordered, referred to GI Clinic for further evaluation management Orders: Orders [place] upper GI series 11/30/23 R10.13 - Epigastric pain, R13.10 - Dysphagia, unspecified Referrals General Surgery Referral R22.2 - Localized swelling, mass and lump, trunk Gastroenterology Referral R10.13 - Epigastric pain, R13.10 - Dysphagia, unspecified Medications: New omeprazole Take an hour before eating once a day 40 mg PO DAILY 30 caps 2RF Coding Level of Care Code Est Pt Level 4 (48822) Diagnoses Mass of skin of chest R22.2 Epigastric pain syndrome R10.13 Difficulty swallowing R13.10 Additional Codes SALUD-7 Assessment Billing - SALUD-7 Assessment Tool: SALUD-7 Assessment 91172 ([id number])
[2023-11-30 11:59] VITALS: BP 108/70; PULSE 87; O2SAT 97; BMI 38.4
== END 2023-11-30 12:51 | disposition home or self-care (01) ==
PROVIDERS: PCP Internal Medicine; Visit Provider Internal Medicine
DX: R22.2 Localized swelling, mass and lump, trunk (principal); R10.13 Epigastric pain; R13.10 Dysphagia, unspecified
CPT/HCPCS: 99214

== ENCOUNTER 2023-12-16 19:10 | Emergency (ER) | payer OTHER, SELFPAY ==
--- NOTE | ~2023-12-16 | XR_ITS ---
EXAMINATION: XR CHEST CLINICAL INFORMATION: Fever and cough COMPARISON: Chest x-ray May 31, 2020 TECHNIQUE: Frontal portable view of the chest was obtained. 2045 hours FINDINGS: No significant abnormality is noted involving the heart, lungs, mediastinum, bony thorax or soft tissues. XR/XR chest 1V IMPRESSION: Unremarkable examination.
--- NOTE | ~2023-12-16 | US_ITS ---
EXAMINATION: US VENOUS ULTRASOUND WITH DOPPLER LOWER EXTREMITY, RIGHT CLINICAL INFORMATION: Pain and swelling. Tenderness right lower leg. COMPARISON: Previous duplex ultrasound exam right lower extremity April 21, 2022 TECHNIQUE: Ultrasound of the deep veins is performed from the hip to the calf with compression sonography and color and pulse Doppler assessment. Spectral analysis with color-flow imaging is performed. FINDINGS: There is normal venous compression and respiratory variation and augmented flow. The visualized common femoral vein, superficial femoral vein, profunda femoral vein, popliteal vein, and the trifurcation region shows no evidence of deep venous thrombosis. There is no significant popliteal fossa cyst. Lymph node in the right groin with normal morphology. Short axis diameter 1.5 cm. If the patient's symptoms persist, followup ultrasound in 5 days 7 days might be of value to exclude proximal propagation from a non-visualized calf vein. US/US venous duplex LE RT IMPRESSION: No DVT demonstrated in the right lower extremity.
[2023-12-16 19:13] VITALS: BP 139/68; PULSE 86; RESP 18; TEMP 37.9; O2SAT 98; BMI 30.5
--- NOTE | 2023-12-16 19:14 | ED.GENADULT ---
HPI - General Adult General Chief complaint: General Medical Stated complaint: ?sepsis Time Seen by Provider: 12/16/23 19:43 History of Present Illness ED Provider: Shivani CEE narrative: The patient is a 58-year-old male with multiple medical problems including diabetes with complications including a left lmynw-elf-ojgi amputation. Also he has renal failure on peritoneal dialysis. He is and lives with his . The patient has felt unwell for the last 2 days. He has had fevers at home. His highest fever at home was 103. He was seen at [facility] yesterday and was felt to have a viral syndrome and was discharged. He says that he had some mild right lower leg pain yesterday but since leaving [facility] he has had increasing pain in the right lower leg. His read through the discharge paperwork from [facility] where she felt it implied that he had sepsis and she brought him to the emergency room here because she was concerned that he seemed to be worse today. He denies any abdominal pain. He denies any chest pain. He has had an occasional cough. Related Data Home Medications ?Medication ?Instructions ?Recorded ?Confirmed allopurinol 100 mg tablet 100 mg PO DAILY 04/29/20 03/29/23 blood sugar diagnostic #10 ea 04/29/20 03/29/23 pen needle, diabetic 31 gauge x #1,200 ea 11/11/21 03/29/2311/09 (BD Ultra-Fine Short Pen Needle) insulin glargine U-300 conc 300 6 unit subcut BEDTIME 08/26/22 03/29/23 unit/mL (1.5 mL) subcutaneous pen (Toujeo SoloStar U-300 Insulin) insulin aspart U-100 100 unit/mL subcut 10/26/22 03/29/23 (3 mL) subcutaneous pen (Novolog FlexPen U-100 Insulin aspart) sevelamer carbonate 800 mg tablet 800 mg PO TID 12/09/22 03/29/23 bumetanide 1 mg tablet 1 mg PO BID 03/29/23 03/29/23 Previous Rx's ?Medication ?Instructions ?Recorded flash glucose sensor (FreeStyle #2 ea 04/24/21 Juanito 14 Day Sensor kit) amlodipine 10 mg tablet 10 mg PO DAILY #30 tabs 12/09/22 carvedilol 6.25 mg tablet 6.25 mg PO Q12H #60 tabs 12/09/22 Left sycsg-oso-mely prosthetic #1 ea 03/29/23 cholecalciferol (vitamin D3) 1,250 1,250 mcg PO QWEEK 3 months #13 09/25/23 mcg (50,000 unit) capsule caps omeprazole 40 mg capsule,delayed 40 mg PO DAILY #30 caps 11/30/23 release atorvastatin 10 mg tablet 10 mg PO DAILY #90 tabs 12/12/23 Allergies Allergy/AdvReac Type Severity Reaction Status Date / Time cephalexin [CEPHALEXIN] Allergy Intermediate UNABLE TO Verified 12/16/23 19:19 MOVE ENTIRE BODY, chills and fever, nausea, chills, fever, and nausea metformin [METFORMIN] AdvReac Intermediate ADVISED Verified 12/16/23 19:19 NOT TO TAKE ANYMORE,SHAKEY,STOMACH PAINS, stomach upset, stomach upset Review of Systems Review of Systems: Yes all other systems are reviewed and are negative PMFSH Past Medical History Medical History (Updated 12/17/23 @ 02:18 by Sukhi Parrish MD) Difficulty swallowing Epigastric pain syndrome Chronic right shoulder pain Spinal stenosis of lumbosacral region with radiculopathy Vitamin D deficiency Osteomyelitis of toe of right foot Chronic kidney disease, stage 5 Chronic low back pain Pericardial effusion Cellulitis of right lower leg Major depressive disorder Diabetes mellitus with retinopathy Diabetes mellitus with diabetic nephropathy, with long-term current use of insulin Dyslipidemia Diabetic gastroparesis associated with type 2 diabetes mellitus Morbid obesity Celiac disease Diabetic neuropathy associated with type 2 diabetes mellitus Non-toxic multinodular goiter Hypertension Renal calculi Gastroparesis Hypercholesterolemia Peripheral vascular disease Surgical History Status post amputation of lesser toe of right foot S/P laparoscopic sleeve gastrectomy Hx of colonoscopy History of below-knee amputation (~06/28/17) History of lobectomy of thyroid (~03/25/15) History of esophagogastroduodenoscopy (EGD) (~09/26/13) History of repair of ACL (~2004) History of skin graft (~1993) Family History Family History Father Hypertension Diabetes Mother No problems noted. Sister Mental health disorder Social History Social History Household Members: Spouse Housing: Apartment Do you presently have visiting nurse or other home services: No Alcohol intake: never Comment: refuses alarm Patient Tobacco Use Status: Never used Tobacco Smoked in Last 30 Days: No e-Cigarette/Vaping Use: Never Used Advance Directives: No Advance Directives Information Provided: No Do you have a plan to hurt others: No Plan service: No Current occupational status: disabled Cognitive needs: No Hearing needs: No Vision needs: No Physical Exam ED Vital Signs: Vital Signs - 24 hr 12/16/23 19:13 12/16/23 21:27 12/16/23 23:57 Temperature 100.3 F 99.7 F 98.5 F Pulse Rate 86 86 74 Respiratory Rate 18 16 16 Blood Pressure 139/68 135/78 133/66 Pulse Oximetry 98 97 98 Oxygen Delivery Method Room Air Room Air Room Air BMI result Body Mass Index 30.5 Const Other: The patient is a chronically ill-appearing, obese 58-year-old who was awake and alert with a normal mental status. He looked unwell but not frankly toxic. HENMT Other: Face is symmetrical. Mucous membranes moist. Eyes Other: Pupils are round equal, conjunctivae are clear Neck Other: Moving his neck easily, neck is supple. Resp Effort & Inspection: normal respiratory effort Auscultation: clear to auscultation bilaterally Cardio Rate: regular rate Rhythm: regular rhythm Heart sounds: S1 normal heart sound present and S2 normal heart sound present GI Other: The patient has a peritoneal dialysis catheter on his abdomen. The abdomen is soft and nontender. Skin Other: The skin of the right lower leg is red and warm. There are several scabs on the lower leg as well. Neuro Other: The patient is awake and alert. He seems fatigued but is appropriately oriented and alert. Cranial nerves 2-12 are intact. He moves his upper extremities and his right leg normally. He was able to walk with his prosthetic leg. He seems grossly neurologically intact. Extrem Other: The patient has a left hwtgd-qdz-ozii amputation. The right leg has redness and warmth than scabs. There is a good dorsalis pedis pulse in the right foot. The right calf feels full and tender. He has not exquisitely tender however. He can move the knee and the foot. He has had an amputation of the 4th toe of the right foot. Course Course Course Narrative: RME performed by Marcela Saenz PA-C. Patient is a 58 year old assigned male at presenting to the emergency department with right leg swelling. Patient has a history of kidney failure and is on the transplant. Patient was seen in [facility] ED for similar symptoms and discharged as a viral illness but his MyChart has concerns of sepsis documented. Detailed physical exam and review of systems are deferred to the health clinician. Labs and swabs ordered. Patient placed back in the waiting room pending room availability and results. Medications Administered Discontinued Medications Generic Name Dose Route Start Last Admin Trade Name Freq PRN Reason Stop Dose Admin Acetaminophen 975 mg 12/16/23 21:44 12/16/23 21:51 Acetaminophen 325 Mg Tablet PO 12/16/23 21:45 975 mg ONCE ONE Administration Droperidol 1.25 mg 12/16/23 21:56 12/16/23 22:01 Droperidol 5 Mg/2 Ml Vial IVPUSH 12/16/23 21:57 1.25 mg ONCE ONE Administration Piperacillin Sod/Tazobactam 100 mls @ 200 mls/hr 12/16/23 21:01 12/16/23 21:49 Sod 4.5 gm/ Sodium Chloride IV 12/16/23 21:30 Infused ONCE ONE Infusion Vancomycin HCl 2,000 mg in 500 mls @ 250 mls/hr 12/16/23 21:03 12/17/23 00:00 Vancomycin/Ns IV 12/16/23 23:02 Infused ONCE ONE Infusion Morphine Sulfate 4 mg 12/16/23 21:56 12/16/23 22:01 Morphine Sulfate 4 Mg/Ml Cartridge IVPUSH 12/16/23 21:57 4 mg ONCE ONE Administration Protocol Procedures EJ/Peripheral Line Arm L: Time Out Performed: Yes Skin Cleansed in Sterile Fashion: Yes Size (gauge): 20 IV Secured and Dressing Applied: Yes Patient Tolerated Procedure: well Additional Comments: ultrasound guided peripheral IV Medical Decision Making Medical Decision Making MDM Narrative: The patient presents for evaluation of fever and right lower leg pain. His right leg is well-perfused and there is a good dorsalis pedis pulse. The right leg is red and warm with scabs. It is also tender and somewhat edematous. I suspect this is a right lower leg cellulitis. A DVT ultrasound was done to rule out a DVT given the degree of swelling. This was negative. [place] [address] in the CRP of 35 mg/dL. Electrolytes are unremarkable, specifically potassium is 3.9. CPK is normal. The patient has been seen at the emergency room at [facility] yesterday. [place] [address]. The patient's heart rate, blood pressure, and lactate are all unremarkable. His creatinine is elevated but this is due to his chronic renal failure and not an indication of organ failure secondary to sepsis. I felt the patient is infection was significant enough to require hospitalization. The patient was started on piperacillin/tazobactam and vancomycin. I contacted our nephrology service given the patient's need for peritoneal dialysis. I expect the patient will probably require hospitalization of at least 2 days. I was informed by the on-call test kitchen home economist that we do not have sufficient staff in the hospital over the weekend to manage peritoneal dialysis. The test kitchen home economist therefore recommended transfer. The patient was feeling generally unwell. He had a headache which was not a terribly severe headache and he also had nausea and retching. His abdomen remains entirely benign. He was treated with morphine and droperidol with significant improvement in his symptoms. I contacted [facility] and the patient has been accepted for transfer to the medical service at [facility]. The accepting doctor will be Dr. Condon. Lab Data 12/16/23 19:42 12/16/23 19:42 Labs: Lab Results 12/16/23 12/16/23 Range/Units 19:42 20:34 WBC 24.0 H (4.8-10.8) X10*3/uL RBC 3.51 L (4.60-5.80) X10*6/uL Hgb 11.9 L (14.0-18.0) g/dl Hct 33.5 L (42.0-52.0) % MCV 95.4 (80.0-98.0) fL MCH 33.9 H (27.0-33.0) pg MCHC 35.5 (31.0-36.0) g/dl RDW 14.5 (11.0-16.0) % Plt Count 140 L D (160-400) X10*3/uL MPV 10.4 (9.4-12.4) fL Immature Gran % (Auto) 0.6 H (0.0-0.4) % Neut % (Auto) 93.2 H (45-73) % Lymph % (Auto) 2.8 L (20-40) % Dubois % (Auto) 3.2 (2-11) % Eos % (Auto) 0.0 (0-4) % Baso % (Auto) 0.2 (0-2) % Lymph # (Auto) 0.7 L (1.2-4.9) X10*3/uL Dubois # (Auto) 0.8 (0.1-1.2) X10*3/uL Eos # (Auto) 0.0 (0.0-0.4) X10*3/uL Baso # (Auto) 0.0 (0.0-0.2) X10*3/uL Abs Immat Gran (auto) 0.14 H (0.00-0.03) X10*3/uL Absolute Neuts (auto) 22.4 H (2.0-8.3) x10*3/uL Absolute Nucleated RBC 0.000 (0.0-0.012) X10*3/uL Nucleated RBC % (auto) 0.0 (0.0-0.2) /100WBC Smear Tech's Comments VERIFIED Sodium 127 L (135-145) mmol/L Potassium 3.9 (3.3-5.1) mmol/L Chloride 92 L (96-108) mmol/L Carbon Dioxide 21 L (22-29) mmol/L Anion Gap 18 (12-20) BUN 46 H (9-16) mg/dL Creatinine 5.78 H* (0.5-1.4) mg/dL Estim Creat Clear Calc 17.6 Estimated GFR 10 Random Glucose 233 H (60-115) mg/dL Lactic Acid 1.6 (0.5-2.0) mmol/L Calcium 9.0 D (8.4-10.2) mg/dL Magnesium 1.5 L (1.6-2.6) mg/dL Total Bilirubin 0.6 (0.0-1.0) mg/dL AST 13 (5-37) U/L ALT 17 (0-40) U/L Alkaline Phosphatase 90 (39-117) U/L Total Creatine Kinase 142 (38-174) U/L C-Reactive Protein 35.91 H (< or = 0.50) mg/dL Total Protein 7.6 (6.5-8.0) g/dL Albumin 3.3 L (3.5-5.0) g/dL Influenza Type A (PCR) NEGATIVE (Negative) Influenza Type B (PCR) NEGATIVE (Negative) RSV RNA Qual (PCR) NEGATIVE (Negative) SARS-CoV-2 RNA (RT-PCR) NEGATIVE (Negative) S. pyogenes GrpA CLAUDY Positive A (Negative) Independent Interpretation I performed an independent interpretation of an: EKG Interpretation: EKG at 22:40 shows normal sinus rhythm at 82 beats per minute. QTC is 486. Critical Care Time Critical Care Time Critical Care Time: Yes Total Critical Care Time: 35 Attestation: The patient was critically ill with a high probability of imminent or life-threatening deterioration. ?I spent greater than 30 minutes of discontinuous time evaluating the patient, delivering critical care at the bedside, discussing evaluating data with consultants. ?Critical care time does not include time spent performing separately billable procedures or teaching. ?Time spent performing critical care with 35 minutes. Discharge Plan Discharge Clinical Impression: Cellulitis of right leg, Chronic renal failure (CRF), stage 5, Type 2 diabetes mellitus Patient Disposition: [facility] Transfer Details: [facility], hospitalist service on the medical floor Prescriptions: No Action (DME) FreeStyle Juanito 14 Day Sensor Kit See Rx Instructions .Route Qty: 2 0RF Rx Instructions: As directed carvedilol 6.25 mg tablet 6.25 mg PO Q12H Qty: 60 0RF Rx Instructions: must administer with a meal/food amlodipine 10 mg tablet 10 mg PO DAILY Qty: 30 0RF cholecalciferol (vitamin D3) 1,250 mcg (50,000 unit) capsule 1,250 mcg PO QWEEK 90 Days Qty: 13 0RF atorvastatin 10 mg tablet 10 mg PO DAILY Qty: 90 1RF (DME) pen needle, diabetic [BD Ultra-Fine Short Pen Needle] 31 gauge x 5/16 needle See Rx Instructions subcut QID Qty: 1200 Rx Instructions: As directed Toujeo SoloStar U-300 Insulin 300 unit/mL (1.5 mL) insulin pen 6 unit subcut BEDTIME bumetanide 1 mg tablet 1 mg PO BID sevelamer carbonate 800 mg tablet 800 mg PO TID (DME) Left aojte-pow-sxdi prosthetic See Rx Instructions .Route .MEDSUPPLY Qty: 1 0RF Rx Instructions: As directed omeprazole 40 mg capsule,delayed release(DR/EC) 40 mg PO DAILY Qty: 30 2RF Rx Instructions: Take an hour before eating once a day allopurinol 100 mg tablet 100 mg PO DAILY (DME) blood sugar diagnostic Strip See Rx Instructions Not Applicable .MEDSUPPLY Qty: 10 Rx Instructions: As directed insulin aspart U-100 [Novolog FlexPen U-100 Insulin] 100 unit/mL (3 mL) insulin pen subcut Print Language: East Timorese
[2023-12-16 19:48] LABS: Basophils Percent Auto 0.2 % (0-2); Hematocrit 33.5 % (42.0-52.0); Hemoglobin 11.9 g/dl (14.0-18.0); Imm Gran Abs Auto 0.14 X10*3/uL (0.00-0.03); Imm Gran Pct Auto 0.6 % (0.0-0.4); Lymphocytes Absolute Auto 0.7 X10*3/uL (1.2-4.9); Lymphocytes Percent Auto 2.8 % (20-40); MANUAL DIFF FLAG SCAN; Mean Corpuscular HGB Conc 35.5 g/dl (31.0-36.0); Mean Corpuscular Hemoglobin 33.9 pg (27.0-33.0); Mean Corpuscular Volume 95.4 fL (80.0-98.0); Mean Platelet Volume 10.4 fL (9.4-12.4); Monocytes Absolute Auto 0.8 X10*3/uL (0.1-1.2); Monocytes Percent Auto 3.2 % (2-11); Neutrophils Absolute Auto 22.4 x10*3/uL (2.0-8.3); Neutrophils Percent Auto 93.2 % (45-73); Platelet Count 140 X10*3/uL (160-400); Red Blood Count 3.51 X10*6/uL (4.60-5.80); Red Cell Distribution Width 14.5 % (11.0-16.0); SCAN SMEAR FLAG 1
[2023-12-16 19:52] LABS: IDNOW Serial# 08D9AD1C; Strep A Nucleic Acid Positive (Negative)
[2023-12-16 20:08] LABS: Alanine Aminotransferase 17 U/L (0-40); Albumin Level 3.3 g/dL (3.5-5.0); Alkaline Phosphatase 90 U/L (39-117); Anion Gap 18 (12-20); Aspartate Amino Transferase 13 U/L (5-37); Bilirubin Total 0.6 mg/dL (0.0-1.0); Blood Urea Nitrogen 46 mg/dL (9-16); Carbon Dioxide 21 mmol/L (22-29); Chloride 92 mmol/L (96-108); Creatinine Clr Calc Pharmacy 17.6; Estimated Glomerular Filt Rate 10; Glucose Random 233 mg/dL (60-115); Magnesium 1.5 mg/dL (1.6-2.6); Potassium 3.9 mmol/L (3.3-5.1); Sodium 127 mmol/L (135-145); Total Protein 7.6 g/dL (6.5-8.0)
[2023-12-16 20:11] LABS: SLIDE REVIEW VERIFIED
[2023-12-16 20:26] LABS: Influenza A PCR NEGATIVE (Negative); Influenza B PCR NEGATIVE (Negative); Resp Syncy Virus RNA Qual PCR NEGATIVE (Negative); SARS COV2 PCR INHOUSE NEGATIVE (Negative)
[2023-12-16 20:27] LABS: C Reactive Protein 35.91 mg/dL (< or = 0.50)
[2023-12-16 20:58] LABS: Lactic Acid 1.6 mmol/L (0.5-2.0)
[2023-12-16] MEDS: Piperacillin Sodium/Tazobactam 4.5 GM in 0.9 % Sodium Chloride 100 ML IV (21:17)
[2023-12-16 21:27] VITALS: BP 135/78; PULSE 86; RESP 16; TEMP 37.6; O2SAT 97
[2023-12-16] MEDS: vancomycin/NS 2,000 MG/500 ML PLAST..BAG 250 MG IV (21:50)
[2023-12-16] MEDS: Acetaminophen 325 MG TABLET 975 MG PO (21:51)
[2023-12-16] MEDS: droPERidol 5 MG/2 ML VIAL 1.25 MG IVPUSH (22:01)
[2023-12-16] MEDS: Morphine Sulfate 4 MG/ML CARTRIDGE IVPUSH (22:01)
--- NOTE | 2023-12-16 22:37 | ECG_ITS ---
Test Reason : WEAKNESS Blood Pressure : / mmHG Vent. Rate : 082 BPM Atrial Rate : 082 BPM P-R Int : 190 ms QRS Dur : 088 ms QT Int : 416 ms P-R-T Axes : 014 -27 012 degrees QTc Int : 486 ms Normal sinus rhythm Minimal voltage criteria for LVH, may be normal variant ( R in aVL ) Cannot rule out Anterior infarct , age undetermined Abnormal ECG When compared with ECG of 17-JUN-2020 11:58, QT has lengthened Referred By: Sukhi Parrish Electronically Signed By:Domo Nolen
--- NOTE | 2023-12-16 22:39 | PC.NURSE ---
pt presents from home with at bedside, pt was seen at [facility] yesterday and dc'd with supportive are for viral illness. Today pt fevers have persisted tmax 103- pt was seen via telehealth urgent care and was encouraged to come to the dept for evaluation. Pt also complains of 8/10 right leg pain (pt has L BKA). pt leg evaluated via US for DVT. 20G US guided IV was placed in left Bicep by MD Lunsford. Labs, lactic, and cultures obtained. Pt labs significant for WBC 240 , Na+ 127, and creatinine of 5.28, lactic negative at 1.6 . Pt was also found to be positive for strep throat. Pt was evaluated by ED MD as well as Hospitalist service- plan was to admit here at [facility], however, Pt does home peritoneal dialysis. [facility] does not have staff on this weekend to provide this service for pt. MD reached out to [facility] for direct admission as pt requires higher level of care. At this time pt awaits transfer acceptance and bed assignment. Pt rec 4.5g of Zosyn , Vanco 2gm infusing at present per order. pt given 975mg of APAP for fever (re-eval tmp now 98.6) , 4mg MsO4 given for 8/10 headache/leg pain. Pt reports 3/10 pain on re-evaluation. Pt resting quietly, call nolen within reach.
[2023-12-16 23:57] VITALS: BP 133/66; PULSE 74; RESP 16; TEMP 36.9; O2SAT 98
--- NOTE | 2023-12-17 00:08 | PC.NURSE ---
this rn assumed care of pt, pt a&ox4, respirations even and unlabored. pt denies pain at this time. pt normal sinus on tele 88-90bpm.
--- NOTE | 2023-12-17 01:37 | PC.NURSE ---
per , call [facility] to get update on pt room. per [facility], awaiting pt bed placement at this time, pt does not have a bed confirmed. [facility] reports they will call nolen with update.
[2023-12-17 03:20] VITALS: BP 134/77; PULSE 79; RESP 16; TEMP 36.9; O2SAT 97
[2023-12-17 03:24] LABS: Appearance Urine Clear; Color Urine Yellow; Glucose Urine UA 250 mg/dL (Negative); Leukocyte Esterase Urine Negative (Negative); Nitrite Urine Negative (Negative); Specific Gravity - Urine 1.025 (1.005-1.025); UMIC TRIGGER UACC YES; Urine Blood Trace (Negative); Urine Ketones Negative (Negative); Urine Protein 100 (2+) mg/dL (Neg-Trace)
[2023-12-17 03:29] LABS: Bacteria Urine None Seen (None Seen); Hyaline Casts Urine 0-2 /LPF (0-2); RBC Urine 0-2 /HPF (0-2); Squamous Epithelial Cell Urine 0-2 /HPF (0-2); WBC Urine 0-5 /HPF (0-5)
--- NOTE | 2023-12-17 03:44 | PC.NURSE ---
report given to Reji BULLARD at [facility] . No questions at this time.
[2023-12-17 05:11] VITALS: BP 147/75; PULSE 78; RESP 16; TEMP 36.8; O2SAT 98
[2023-12-17 07:16] VITALS: BP 147/75; PULSE 78; RESP 16; TEMP 36.8; O2SAT 98
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
--- OUTSIDE RECORDS SUMMARY | 2023-12-22 06:59 | XMS_ITS | Continuity of Care Document ---
Author Organization [facility] Address [address] [place] [address]- Care Team Providers Care Adjunct Physical Education Instructor Name Role Phone Sebastian CASTRO, Shereen Banerjee Primary Care Physician Encounter [facility] [place] Date(s): 05/08/23 - 07/07/23 [facility] [address] [place] [address]- Attending Physician: Alexx Rose MD Admitting Physician: Alexx Rose MD Allergies, Adverse Reactions, Alerts Substance Reaction Severity Status Keflex muscles locked up, could not move Active metFORMIN 1 GI upset Active 1nausea/vomiting Immunizations Given and Recorded Vaccine Date Status Refusal Reason influenza virus vaccine, inactivated 06/14/22 Jeremiah rded influenza virus vaccine, inactivated 04/16/21 Jeremiah rded influenza virus vaccine, inactivated 08/12/20 Give n influenza virus vaccine, inactivated 05/20/18 Jeremiah rded influenza virus vaccine, inactivated 04/11/17 Jeremiah rded influenza virus vaccine, inactivated 03/26/16 Jeremiah rded [id number] 12y+ bivalent booster vax 06/14/22 Recorded zoster vaccine, inactivated 10/13/21 Recorded SARS-CoV-2 mRNA ([id number]) vax 10/13/21 Recorded SARS-CoV-2 (COVID-19) mRNA BNT-162b2 vac 09/25/20 Recorded SARS-CoV-2 (COVID-19) mRNA BNT-162b2 vac 09/04/20 Recorded tetanus/diphtheria/pertussis, acel(Tdap) 11/09/16 Recorded Medications Allopurinol 100 mg, By Mouth, Daily, Refills 0, Maintenance, 08/11/20 16:30:00 EST, Partial fill upon patient request if the prescription is for a schedule II opioid drug. Start Date: 08/11/20 Status: Ordered amLODIPine 10 mg oral tablet 1 tablet = 10 mg, By Mouth, Daily, Maintenance, 09/15/22 9:43:00 EDT, Tablet, Partial fill upon patient request if the prescription is for a schedule II opioid drug. Start Date: 09/15/22 Status: Ordered atorvastatin 10 mg oral tablet 1 tablet = 10 mg, By Mouth, Daily at bedtime, # 30 tablet, 0 Refills, Maintenance, 08/12/22 14:18:00 EST, Partial fill upon patient request if the prescription is for a schedule II opioid drug. Start Date: 08/12/22 Status: Ordered bumetanide 2 mg oral tablet 1 tablet = 2 mg, By Mouth, 2 times a day, # 60 tablet, 0 Refills, Maintenance, 01/22/23 12:09:00 EDT, Tablet, [facility]/pharmacy #[id number], Partial fill upon patient request if the prescription is for a schedule II opioid drug., 173, cm, 01/22/23 0:28:00 EDT, H... Start Date: 01/22/23 Stop Date: 02/21/23 Status: Ordered carvedilol 6.25 mg oral tablet 6.25 mg, 1, tablet, By Mouth, 2 times a day, # 60 tablet, Refills 0, Tot. Refills 0, Maintenance, 01/22/23 12:19:00 EDT, Route to Pharmacy Electronically, [facility]/pharmacy #[id number], Partial fill upon patient request if the prescription is for a schedule II o... Start Date: 01/22/23 Stop Date: 02/21/23 Status: Ordered gabapentin 300 mg oral capsule 300 mg, 1, capsule, By Mouth, Daily, Refills 0, Maintenance, 03/14/23 13:29:00 EDT, Partial fill upon patient request if the prescription is for a schedule II opioid drug. Start Date: 03/14/23 Status: Ordered NovoLOG FlexPen 100 units/mL injectable solution PLEASE SEE ATTACHED FOR DETAILED DIRECTIONS Start Date: 08/12/22 Status: Ordered sevelamer carbonate 800 mg oral tablet = 800 mg, By Mouth, 3 times a day with meals, # 90 tablet, 0 Refills, Maintenance, 01/22/23 12:12:00 EDT, Tablet, [id number], Partial fill upon patient request if the prescription is for a schedule II opioid drug., 173, cm, 01/22/23 0:28:00 ED... Start Date: 01/22/23 Stop Date: 02/21/23 Status: Ordered tamsulosin 0.4 mg oral capsule 0.4 mg, 1, capsule, By Mouth, Daily, # 30 capsule, Refills 0, Tot. Refills 0, Maintenance, 238:45:00 EST, Route to Pharmacy Electronically, [facility], Partial fill upon patient request if the prescription is for a schedule II opi... Start Date: 08/20/22 Stop Date: 09/19/22 Status: Ordered Toujeo SoloStar 300 units/mL subcutaneous solution = 6 units, Subcutaneous Injection, Daily at bedtime, # 1.5 mL, 0 Refills, Maintenance, 08/12/22 14:19:00 EST, Solution, Partial fill upon patient request if the prescription is for a schedule II opioid drug. Start Date: 08/12/22 Status: Ordered Problem List Condition Confirmation Course Effective Dates Status Health St atus Informant Chronic kidney disease (CKD), stage III (moderate) Confirmed Active Diabetes Confirmed Active Hypertension Confirmed Active Multinodular goiter Confirmed Active Open wound of foot, complicated Confirmed Active Severe obesity (BMI 35.0-39.9) with comorbidity Confirmed Active Social History Social History Type Response Smoking Status Never smoker; Tobacc o user in household: No entered on: 02/14/15 Sex Patient Care team information Care Team Personnel Name: Tiffanie Cantu RN Position: [facility] RN Member Role: Primary Care Nurse Name: Ponce Wilkes RN Position: [facility] RN Member Role: Primary Care Nurse Name: Nadja Helms Position: [facility] Outreach Member Role: Lifetime Consulting Physician Name: Shereen Cortes MD Position: Reference Physician Member Role: PCP Address: Address: [address] [place], [place] [address] Name: Lily Hooper Position: [facility] Outreach Member Role: Lifetime Consulting Physician Name: Tiara Coleman Position: [facility] AMB Nurse Member Role: Lifetime Consulting Physician Name: Donte Clark III, RN Position: [facility] RN Member Role: Primary Care Nurse Name: Tova Vidales RN Position: [facility] RN Member Role: Primary Care Nurse Name: Chelo Marie Position: [facility] RN Member Role: Primary Care Nurse Name: Casi Georges RN Position: S RN Member Role: Primary Care Nurse Name: Soto Amador RN Position: S RN Member Role: Primary Care Nurse Name: Rafael Shah MD Position: [facility] Renal MD Member Role: Lifetime Consulting Physician Address: Address: [address] [place] [address] [facility] [place] [address]- Name: Cherie Alcantar RN Position: [facility] RN Member Role: Primary Care Nurse Name: Pietro Miranda MD Position: [facility] Renal MD Member Role: Lifetime Consulting Physician Address: Address: [address] [place] [address] [facility] [place] [address]- Name: Tori Gould RN Position: S RN Member Role: Primary Care Nurse Name: Francis Mccann RN Position: S RN Member Role: Primary Care Nurse Care Team Related Persons Name: CAROL LES GEOFFREY Address: [address] [address]
--- OUTSIDE RECORDS SUMMARY | 2023-12-22 06:59 | XMS_ITS | Continuity of Care Document ---
Author Organization [facility] ter Address [address] [place] [address]- Care Team Providers Care Retinal Surgeon Name Role Phone Sebastian CASTRO, Shereen Banerjee Primary Care Physician Encounter [facility] Date(s): 04/01/23 - 04/01/[address] [address]- Encounter Diagnosis Kidney stone on left side(Final) - 04/01/23 Apnea(Final) - 04/01/23 Discharge Disposition: A-D/C AMA Attending Physician: Renu Rose MD Admitting Physician: Renu Rose MD Referring Physician: Not on Staff, Referring MD Allergies, Adverse Reactions, Alerts Substance Reaction Severity Status metFORMIN 1 GI upset Active Keflex muscles locked up, could not move Active 1nausea/vomiting Immunizations Given and Recorded Vaccine Date Status Refusal Reason influenza virus vaccine, inactivated 06/14/22 Jeremiah rded influenza virus vaccine, inactivated 04/16/21 Jeremiah rded influenza virus vaccine, inactivated 08/12/20 Give n influenza virus vaccine, inactivated 05/20/18 Jeremiah rded influenza virus vaccine, inactivated 04/11/17 Jeremiah rded influenza virus vaccine, inactivated 03/26/16 Jeremiah rded [id number] 12y+ bivalent booster vax 06/14/22 Recorded zoster vaccine, inactivated 10/13/21 Recorded SARS-CoV-2 mRNA ([id number]) vax 10/13/21 Recorded SARS-CoV-2 (COVID-19) mRNA BNT-162b2 [...] 0 Refills, Maintenance, 01/22/23 12:09:00 EDT, Tablet, [facility]/pharmacy #[id number], Partial fill upon patient request if the prescription is for a schedule II opioid drug., 173, cm, 01/22/23 0:28:00 EDT, H... Start Date: 01/22/23 Stop Date: 02/21/23 Status: Ordered carvedilol 6.25 mg oral tablet 6.25 mg, 1, tablet, By Mouth, 2 times a day, # 60 tablet, Refills 0, Tot. Refills 0, Maintenance, 01/22/23 12:19:00 EDT, Route to Pharmacy Electronically, [facility]/pharmacy #[id number], Partial fill upon patient request if the prescription is for a schedule II o... Start Date: 01/22/23 Stop Date: 02/21/23 Status: Ordered Dilaudid Inj 1 mg, Injection, IV Push Slowly, Once, STAT, 04/01/23 9:06:00 EDT, Stop date 04/01/23 9:06:00 EDT Start Date: 04/01/23 Stop Date: 04/01/23 Status: Completed Dilaudid Inj 0.5 mg, Injection, IV Push Slowly, Once, STAT, 04/01/23 10:37:00 EDT, Stop date 04/01/23 10:37:00 EDT Start Date: 04/01/23 Stop Date: 04/01/23 Status: Completed gabapentin 300 mg oral capsule 300 mg, [...] 0 Refills, Maintenance, 01/22/23 12:12:00 EDT, Tablet, [facility]/pharmacy #[id number], Partial fill upon patient request if the prescription is for a schedule II opioid drug., 173, cm, 01/22/23 0:28:00 ED... Start Date: 01/22/23 Stop Date: 02/21/23 Status: Ordered tamsulosin 0.4 mg oral capsule 0.4 mg, 1, capsule, By Mouth, Daily, # 30 capsule, Refills 0, Tot. Refills 0, Maintenance, :45:00 EST, Route to Pharmacy Electronically, [facility], Partial fill upon patient [...] List Condition Confirmation Course Effective Dates Status [facility] atus Informant Chronic kidney disease (CKD), stage III (moderate) Confirmed Active Diabetes Confirmed Active Hypertension Confirmed Active Multinodular goiter Confirmed Active Open wound of foot, complicated Confirmed Active Severe obesity (BMI 35.0-39.9) with comorbidity Confirmed Active Results Radiology Reports * Exam Date Time Procedure Performing Provider Status 04/01/23 10:[address] Abdomen and Pelvi s W/O Contrast AniketEnrrique baerine; Auth (Verified) Notes: (CT Abdomen and Pelvis W/O Contrast) Reason For Exam: Flank Pain, Stone disease suspected;Other: RESULT: CT Abdomen and Pelvis W/O Contrast CT Abdomen and Pelvis W/O Contrast Hx of Present Illness: Pt arrives via EMS from home for complaints of 10 10 left flank pain that started at 2am. PT is dilaysis pt, unable to get to dialysis this AM d t pain. +vomiting.; Reason: Other:; Flank Pain, Stone disease suspected; Clinical Question(s): Calculus; Left side flank pain; Order Comment: TECHNIQUE: Spiral CT through the abdomen and pelvis without IV contrast formatted in 3 planes. Thisstudy was performed without oral contrast. Weight- based protocol using automatic tube modulation was used to optimize exposure parameters. CTDIvol Body: 27.23 mGy, DLP Body: 1438 mGy*cm. COMPARISON: None. FINDINGS: Filing And Polishing Supervisor View Findings, Lines and Tubes: None. Visualized Chest: Limited images of lung bases without pleural effusion. Diaphragm: Normal. Liver: The visualized portion is normal. Gallbladder: Small amount of layering hyperdensity within the lumen likely represents sludge or small stones. Bile ducts: No biliary ductal dilation. Spleen: Mild splenomegaly measuring up to 13.9 cm (series 601 image 9). Pancreas: Normal. Adrenal glands: Mild stranding adjacent to both adrenal glands without discrete nodule. Kidneys and ureters: Mild fullness of the left renal pelvis and calyces without ureteral dilatationor identifiable stone. Small hypodensities that are too small to characterize are noted, requiring no dedicated follow up. Bladder: Normal. Reproductive organs: Penile pump is noted with reservoir in the right lower quadrant. Stomach, small bowel, and large bowel: Postsurgical changes of gastric sleeve. Stomach is otherwiseunremarkable. Small bowel contents are fecalized, a nonspecific finding that can be seen in the setting of an incompetent ileocecal valve, slow small bowel transit, or small intestinal bacterial overgrowth. Appendix: Normal. Peritoneum and retroperitoneum: No ascites or pneumoperitoneum. No omental or mesenteric lesions. Lymph nodes: No enlarged lymph nodes. Blood vessels: Normal. No aneurysm. Abdominal and pelvic wall: Small amount of nonspecific soft tissue stranding in the subcutaneous fat of the medial right gluteal fold without fluid collection. Bones: No acute abnormality. IMPRESSION: 1. Mild fullness of the left renal collecting system without hydroureter or obstructing stone. A recently passed stone could be considered. 2. Otherwise no acute process in the abdomen or pelvis. 3. Mild splenomegaly. WSN: [id number] Ordering Physician: Odalys Valencia Dictated By: Tomas Guaman MD Dictated Date/Time: 04/01/23 11:56 a Reviewed By: Tomas Guaman MD Signed By: Tomas Guaman MD Signed Date/Time: 04/01/23 11:56 am Transcribed By: VIKASH Transcribed Date/Time: 04/01/23 11:37 am Vital Signs Most recent to oldest [Reference Range]: 1 2 3 Oxygen Saturation [94-100 %] 100 % (04/01/23 10:45 AM) 100 % (04/01/23 9:04 AM) Pulse Rate [55-90 bpm] 84 bpm (04/01/23 9:04 AM) Blood Pressure [90-138/55-84 mm Hg] 103/88mm Hg (04/01/23 9:04 AM) Respiratory Rate [16-30 br/min] 14 br/min *L* (04/01/23 11:15 AM) 16 br/min (04/01/23 10:12 AM) 18 br/min (04/01/23 9:42 AM) Temperature [96.8-100.4 DegF] 97.6 DegF (04/01/23 9:04 AM) Mode of Delivery (Oxygen) Room air (04/01/23 9:04 AM) Temperature Route Oral (04/01/23 9:04 AM) Social History Social History Type Response Smoking Status Never smoker; Tobacc o user in household: No entered on: 02/14/15 Sex EKG study * Event Display: ECG 12-Lead Authored Date: Please click on pdf link to open report * Event Display: ECG 12-Lead Authored Date: Ventricular Rate: 85 BPM Atrial Rate: 85 BPM P-R Interval: 212 ms QRS Duration: 82 ms Q-T Interval: 398 ms QTC Calculation(Bazett): 473 ms P Phoenix: 37 degrees R Phoenix: -36 degrees T Phoenix: 26 degrees Sinus rhythm with 1st degree A-V block Left axis deviation Abnormal ECG When compared with ECG of 14-MAR-2023 12:31, No significant change was found Confirmed by STEVEN CASTRO, [facility] ([id number]) on 04/01/2023 11:23:36 AM [place]: STEVEN CASTRO,[facility] Progress note * Gavino Hoff: PERFORM, SIGN, VERIFY Event Display: Progress Note Hospital Authored Date: Patient: MOUSTAPHA MEDINA Age: 57 years Sex: Male : 1965 Associated Diagnoses: None Author: Gavino Hoff Findings Narrative/Incidental HD Report/ Sbar Unit aware patient is returning to unit : y Verbal necessary per protocol: y Nurse Name: Latasha RN 3.5 hour HD 2 K bath 5.7 K blood level Access: Right Chest Perm Cath Site assessment: Right Chest Perm Cath, catheter patent, aspirated and flushed without resistance, able to achieve prescribed BFR, Dressing changed, no s/s of infection Hemostasis achieved within expected time frame Y 3.0 liters pulled fluid balance 9.0 % blood volume change UFG Achieved Y - Treatment ran per orders.(if no please explain) N - Antibiotics given see MAR for documentation N - blood products given see task for documentation N - Temporary access removed - (describe site assessment and dressing applied) N - meds given see MAR for documentation Asymptomatic hypotension during treatment improved with ns bolus and UF at minimum. Patient stable at transport. See dialysis flow sheets for treatment details. Post HD Vital signs documented in flow sheet BP 163/94, P 70, R 16, 97.9 . Discharge Information Pulmonary Rehab Discharge : Pulmonary Rehab Discharge Status 04/01/2023 10:45 EDT CPAP/BiPAP Mask Type Full CPAP/BiPAP Mask Size Medium Consult note * Willa Ruiz MD: SIGN Willa Ruiz MD: SIGN, MODIFY Willa Ruiz MD: MODIFY, PERFORM Arian Vega: PERFORM, MODIFY Arian Vega: MODIFY, SIGN Arian Vega: SIGN Event Display: Consultation Note Authored Date: Patient: MOUSTAPHA MEDINA Age: 57 years Sex: Male : 1965 Associated Diagnoses: None Author: Yael HINTON, Arian Cosby [facility] Inpatient Nephrology Consultation Note Requesting Provider: Odalys Valencia DO Reason for Consult: ESRD History of Present Illness Moustapha Medina is a 57-year-old male with PMH of ESRD on HD MWF via [facility] permcat, HTN, DM, obesitystatus post gastric sleeve in 2020, and left BKA who presented to the ED 04/01/2023 with left flank pain. Patient states the pain started early this morning and feels similar to his previous kidney stones.He also reports some nausea and dry heaving. Pain is a 10 out of 10. He denies any fevers, shortness of breath, chest pain, abdominal pain, pain with urination, or any other complaints. In the ED, patient afebrile, saturating at 100% on room air but desatted to 50s while sleeping, BP 103/88, HR 84, RR 18 but later down to 14. Labs notable for Na 132, K 5.7, Cl 97, bicarb 14, anion gap 21, and glucose 234. ABG with 7.61/16.2/35/16.3. CT showed mild fullness of the left renal collecting system without hydroureter or obstructing stone. A recently passed stone could be considered. Patient being admitted for periods of apnea as his O2 sat was in the 50's while he was sleeping. Nephrology consulted for ESRD. On my assessment, patient is resting comfortably in bed. He states that his flank pain has improvedand he has no other complaints. He states that his breathing issue was due to the Dilaudid that he received in the ED. However, he also reports that he recently underwent a sleep study and is in the process of getting a CPAP which he has not received yet. He reports that dialysis has been going well and he has never missed a treatment. Review of Systems Constitutional: No weight loss, fever, chills, weakness or fatigue. HEENT: No visual loss, blurred vision, double vision or yellow sclera. No hearing loss, sneezing, congestion, runny nose or sore throat. Skin: No rash or itching. Cardiovascular: No chest pain, chest pressure or chest discomfort. No palpitations or pedal edema. Respiratory: No shortness of breath, cough or sputum production. Gastrointestinal: Negative for nausea, vomiting & diarrhea. No abdominal pain or blood in stool. Genitourinary: No burning micturition. No urinary frequency or incontinence. Neurologic: No headache, dizziness, syncope, unilateral weakness, ataxia Musculoskeletal: No muscle pain, back pain, joint pain or stiffness. Hematologic: No bleeding or bruising. Lymphatics: No enlarged lymph nodes. Psychiatric: No depression or anxiety. Endocrine: No reports of sweating. No cold or heat intolerance. No polyuria or polydipsia. Health Status Allergies: Allergies (Active and Proposed Allergies Only) Keflex (Severity: Unknown severity, Onset: Unknown) Reactions: muscles locked up, could not move metFORMIN (Severity: Unknown severity, Onset: Unknown) Reactions: GI upset Comments: nausea/vomiting Past Medical History: Chronic kidney disease (CKD), stage III (moderate) Diabetes Hypertension Multinodular goiter Open wound of foot, complicated Severe obesity (BMI 35.0-39.9) with comorbidity Medications: Allopurinol 100 Milligram By Mouth Daily Amlodipine (amLODIPine 10 mg oral tablet) 1 tab(s) 10 Milligram By Mouth Daily Atorvastatin (atorvastatin 10 mg oral tablet) 1 tab(s) 10 Milligram By Mouth Daily at bedtime Bumetanide (bumetanide 2 mg oral tablet) 1 tab(s) 2 Milligram By Mouth 2 times a day for 30 Days Carvedilol (carvedilol 6.25 mg oral tablet) 6.25 Milligram 1 tablet By Mouth 2 times a day for 30 Days Gabapentin (gabapentin 300 mg oral capsule) 300 Milligram 1 capsule By Mouth Daily Insulin Aspart (NovoLOG FlexPen 100 units/mL injectable solution) PLEASE SEE ATTACHED FOR DETAILED DIRECTIONS Insulin Glargine (Toujeo SoloStar 300 units/mL subcutaneous solution) 6 unit(s) Subcutaneous Injection Daily at bedtime Sevelamer (sevelamer carbonate 800 mg oral tablet) 800 Milligram By Mouth 3 times a day with meals for 30 Days Tamsulosin (tamsulosin 0.4 mg oral capsule) 0.4 Milligram 1 capsule By Mouth Daily for 30 Days Social History: Alcohol Details: Use: Never. Tobacco Details: Never smoker, Tobacco user in household: No. Family History: No family history recorded. Physical Examination Temperature 97.6 (09:04) Systolic Blood Pressure 103 (09:04) Diastolic Blood Pressure 88 (09:04) Pulse 87 (10:48) SpO2 100 (10:48) Respiratory Rate 16 (11:16) General: No acute distress HEENT: Mucous membranes moist CV: Regular rate and rhythm Respiratory: CTAB Abdominal: Soft Extremities: No peripheral edema Neuro: AAO x3 Skin: No rashes Results Review General results Today's results 04/01/2023 9:48 EDT pH Venous (POC) POC Cartridge 7.61 H pCO2 Venous (POC) POC Cartridge 16.2 mm Hg L pO2 Venous (POC) POC Cartridge 35 mm Hg Est Bicarbonate (POC) POC Cartridge 16.3 mmol/L L % O2 Sat Venous (POC) POC Cartridge 81 Base Excess (POC) POC Cartridge NEGATIVE 5 Specimen Type - Blood Gas VENOUS 04/01/2023 9:39 EDT WBC 11.2 k/mm3 H RBC 4.06 m/mm3 L Hgb 12.2 Gm/dL L Hct 36.0 % L MCV 88.7 femtoliters MCH 30.0 pg MCHC 33.9 g/dL Platelet Count 133 k/mm3 L RDW-SD 45.4 femtoliters MPV 10.2 femtoliters Nucleated RBC (Automated) 0.0 #/100 WBC'S Abs. NRBC 0.0 k/mm3 Sodium 132 mmol/L L Potassium 5.7 mmol/L H Chloride 97 mmol/L L Bicarbonate Level 14 mmol/L L Anion Gap 21 H Glucose Level 234 mg/dL H BUN 79 mg/dL H Creatinine-Blood 7.3 mg/dL H Estimated GFR Creatinine 8 ML/MIN/1.73 M2 Calcium 9.2 mg/dL Protein, Total 7.5 Gm/dL Albumin 4.4 Gm/dL AG Ratio 1.4 Alkaline Phosphatase 100 units/L Lipase 68 units/L H AST (SGOT) 11 units/L ALT (SGPT) 10 units/L Bilirubin, Total 0.4 mg/dL High Sensitivity Troponin (HSTnT) 88 ng/L C Impression and Plan Moustapha Medina is a 57-year-old male with PMH of ESRD on HD MWF via [facility], HTN, DM, obesitystatus post gastric sleeve in 2020, and left BKA who presented to the ED 04/01/2023 with left flank pain, found to have passed a kidney stone and being admitted for periods of apnea. 1. ESRD Patient dialyzes MWF at [facility] via [facility] permcath L AVF placed 09/28/22 but has never been used as it is not mature yet Patient will soon be transitioning to PD- he has undergone home inspection and has an upcoming appointment to get a PD catheter Plan - Continue HD on MWF schedule via [facility] - Renal diet 2. HTN / Volume Chronically, patient takes amlodipine 10mg daily, Bumex 2mg BID, Coreg 6.25mg BID, and hydralazine 50mg TID. Plan - Continue home amlodipine 10mg daily, Bumex 2mg BID, Coreg 6.25mg BID, and hydralazine 50mg TID. 3. Nephrogenic Anemia Hgb 12.2 (04/01) Tsat 29% and ferritin 429 (03/30) Plan - No need for iron or EPO 4. Secondary Hyperparathyroidism / MBD Calcium 9.2 (04/01) Phos 7.2 (03/30) PTH 656 (03/30) Plan - Sevelamer 1600mg TID w/ meals - Calcitriol 1mcg MWF - Renal diet (phos restrict) 5. Acid/Base ABG 7.61/16.2/35/16.3 Respiratory alkalosis with appropriate metabolic compensation Thank you for the courtesy of this consult, RTANE will continue monitoring the patient along with you please do not hesitate to call us with any further questions Arian Conley PA-C [facility] [address] , [address] Available by Mikey * Joseph CASTRO, Willa: PERFORM Event Display: Consultation Note Authored Date: I evaluated and discussed patient with Arian Conley PA-C Patient Care team information Care Team Personnel Name: Tiffanie Cantu RN Position: [facility] RN Member Role: Primary Care Nurse Name: Ponce Wilkes RN Position: [facility] RN Member Role: Primary Care Nurse Name: Sebastian CASTRO , Shereen Banerjee Position: Reference Physician Member Role: PCP Address: Address: [address] [place], [place] [address] Name: Lily Hooper Position: [facility] Outreach Member Role: Lifetime Consulting Physician Name: Tiara Coleman Position: [facility] AMB Nurse Member Role: Lifetime Consulting Physician Name: Donte Clark III, RN Position: [facility] RN Member Role: Primary Care Nurse Name: Tova Vidales Position: S RN Member Role: Primary Care Nurse Name: Chelo Marie Position: S RN Member Role: Primary Care Nurse Name: Casi Georges RN Position: S RN Member Role: Primary Care Nurse Name: Soto Amador RN Position: [facility] RN Member Role: Primary Care Nurse Name: Rafael Shah MD Position: [facility] Renal MD Member Role: Lifetime Consulting Physician Address: Address: [address] [place] [address] [address] [facility] [place] [address]- Name: Cherie Alcantar RN Position: [facility] RN Member Role: Primary Care Nurse Name: Pietro Miranda MD Position: [facility] Renal MD Member Role: Lifetime Consulting Physician Address: Address: [address] [place] [address] [facility] [place] [address]- Name: Tori Gould RN Position: [facility] RN Member Role: Primary Care Nurse Name: Francis Mccann RN Position: [facility] RN Member Role: Primary Care Nurse Name: Helena YOUNG Attending Position: [facility] ED Medicine MD Name: Eun Lee Position: [facility] ED TA [facility] Member Role: School Clerk Name: Latasha Fernandez RN Position: [facility] ED RN W/OE and Tasks Member Role: Patient Care Provider Name: Odalys Valencia DO Position: [facility] Resident Member Role: Resident Address: Address: [address] [place] [address] [place] [address]- Name: Eun Vasquez Position: [facility] ED TA [facility] Member Role: Patient Care Provider Care Team Related Persons Name: LES MEDINA GEOFFREY Address: home [address] [place] [id number]
--- OUTSIDE RECORDS SUMMARY | 2023-12-22 06:59 | XMS_ITS | Continuity of Care Document ---
Author Organization [facility] Address [address] [place] [address]- Care Team Providers Care Tin Dipper Name Role Phone Sebastian CASTRO, Shereen Banerjee Primary Care Physician Encounter [facility] ACCT R [id number] Date(s): 11/01/23 - 12/01/23 [facility] [address] [place], [place] [address] Attending Physician: Saurav Singh Admitting Physician: Admtr, Saurav Referring Physician: Admtr, Ar8 Allergies, Adverse Reactions, Alerts Substance Reaction Severity [...] influenza virus vaccine, inactivated 03/26/16 Jeremiah rded [id number] 12y+ bivalent booster vax 06/14/22 Recorded zoster vaccine, inactivated 10/13/21 Recorded SARS-CoV-2 mRNA ([id number]) vax 10/13/21 Recorded SARS-CoV-2 (COVID-19) mRNA BNT-162b2 [...] 0 Refills, Maintenance, 01/22/23 12:09:00 EDT, Tablet, [facility]/pharmacy #[id number], Partial fill upon patient request if the prescription is for a schedule II opioid drug., 173, cm, 01/22/23 0:28:00 EDT, H... Start Date: 01/22/23 Stop Date: 02/21/23 Status: Ordered carvedilol 6.25 mg oral tablet 6.25 mg, 1, tablet, By Mouth, 2 times a day, # 60 tablet, Refills 0, Tot. Refills 0, Maintenance, 01/22/23 12:19:00 EDT, Route to Pharmacy Electronically, [facility]/pharmacy #[id number], Partial fill upon patient request if [...] DETAILED DIRECTIONS Start Date: 08/12/22 Status: Ordered [place] Caps oral capsule 1 capsule, By Mouth, Daily, 0 Refills, Maintenance, 11/01/23 8:30:00 EDT, Partial fill upon patientrequest if the prescription is for a schedule II opioid drug. Start Date: 11/01/23 Status: Ordered sevelamer carbonate 800 mg oral tablet = 800 mg, By Mouth, 3 times a day with meals, # 90 tablet, 0 Refills, Maintenance, 01/22/23 12:12:00 EDT, Tablet, [facility]/pharmacy #[id number], Partial fill upon patient request if the prescription is for a schedule II opioid drug., 173, cm, 01/22/23 0:28:00 ED... Start Date: 01/22/23 Stop Date: 02/21/23 Status: Ordered tamsulosin 0.4 mg oral capsule 0.4 mg, 1, capsule, By Mouth, Daily, # 30 capsule, Refills 0, Tot. Refills 0, Maintenance, :45:00 EST, Route to Pharmacy Electronically, [facility], Partial fill upon [...] List Condition Confirmation Course Effective Dates Status H ealth Status Informant Diabetes Confirmed Active CKD (chronic kidney disease) stage V requiring chronic dialysis Confirmed Active ED (erectile dysfunction) Confirmed Active Hypertension Confirmed Active Nocturnal hypoxia Confirmed Active Nephrolithiasis Confirmed Active Prostatic hypertrophy Confirmed Active Multinodular goiter Confirmed Active CECIL (obstructive sleep apnea) Confirmed Active PAD (peripheral artery disease) Confirmed Active Severe obesity (BMI 35.0-39.9) with comorbidity Confirmed Active Social History Social History Type Response Smoking Status Never smoker; Tobacc o user in household: No entered on: 02/14/15 Sex Patient Care team information Care Team Personnel Name: Tiffanie Cantu RN Position: [facility] RN Member Role: Primary Care Nurse Name: Ponce Wilkes RN Position: S RN Member Role: Primary Care Nurse Name: Nadja Helms Position: S Outreach Member Role: Lifetime Consulting Physician Name: Sebastian CASTRO , Sheeren Banerjee Position: Reference Physician Member Role: PCP Address: Address: [address] [place] [address]- [place] Name: Lily Hooper RN Position: S RN Member Role: Lifetime Consulting Physician Name: Tiara Coleman Position: [facility] AMB Nurse Member Role: Lifetime Consulting Physician Name: Donte Clark III, RN Position: S RN Member Role: Primary Care Nurse Name: Tova Vidales RN Position: S RN Member Role: Primary Care Nurse Name: Chelo Marie Position: S RN Member Role: Primary Care Nurse Name: Casi Georges RN Position: S RN Member Role: Primary Care Nurse Name: Soto Amador RN Position: [facility] RN Member Role: Primary Care Nurse Name: Rafael Shah MD Position: [facility] Renal MD Member Role: Lifetime Consulting Physician Address: Address: [address] [place] [address] [facility] [place] [address]- Name: Cherie Alcantar RN Position: [facility] RN Member Role: Primary Care Nurse Name: Pietro Miranda MD Position: [facility] Renal MD Member Role: Lifetime Consulting Physician Address: Address: [address] [place] [address] [facility] [place] [address]- Name: Tori Gould RN Position: [facility] RN Member Role: Primary Care Nurse Name: Francis Mccann RN Position: [facility] RN Member Role: Primary Care Nurse Care Team Related Persons Name: LES MEDINA Address: [address] [place] [address]
--- OUTSIDE RECORDS SUMMARY | 2023-12-22 06:59 | XMS_ITS | Continuity of Care Document ---
Author Organization [facility] Address [address] [address]- Care Team Providers Care Engraver Hand Soft Metals Name Role Phone Sebastian CASTRO, Shereen Banerjee Primary Care Physician Encounter [facility] [place] Date(s): 08/02/23 - 09/01/23 [facility] [address] [address]- Attending Physician: AdmSaurav sal Admitting Physician: AdmtrSaurav Referring Physician: Admtr, Ar8 Allergies, Adverse Reactions, [...] influenza virus vaccine, inactivated 03/26/16 Jeremiah rded [id number] 12y+ bivalent booster vax 06/14/22 Recorded zoster vaccine, inactivated 10/13/21 Recorded SARS-CoV-2 mRNA (lvdvvyd-nwqt-lcghh) vax 10/13/21 Recorded SARS-CoV-2 (COVID-19) mRNA BNT-162b2 [...] 0 Refills, Maintenance, 01/22/23 12:09:00 EDT, Tablet, [facility]/pharmacy #[id number], Partial fill upon patient request if the prescription is for a schedule II opioid drug., 173, cm, 01/22/23 0:28:00 EDT, H... Start Date: 01/22/23 Stop Date: 02/21/23 Status: Ordered carvedilol 6.25 mg oral tablet 6.25 mg, 1, tablet, By Mouth, 2 times a day, # 60 tablet, Refills 0, Tot. Refills 0, Maintenance, 01/22/23 12:19:00 EDT, Route to Pharmacy Electronically, [facility]/pharmacy #[id number], Partial fill upon patient request [...] Maintenance, 238:45:00 EST, Route to Pharmacy Electronically, [facility], Partial fill upon patient request [...] of foot, complicated Confirmed Active Severe obesity Confirmed Active Social History Social History Type Response Smoking Status Never smoker; Tobacc o user in household: No entered on: 02/14/15 Sex Patient Care team information Care Team Personnel Name: Tiffanie Cantu RN Position: [facility] RN Member Role: Primary Care Nurse Name: Ponce Wilkes RN Position: [facility] RN Member Role: Primary Care Nurse Name: Nadja Helms Position: [facility] Outreach Member Role: Lifetime Consulting Physician Name: Shereen Cortes MD Position: Reference Physician Member Role: PCP Address: Address: [address] [place], [place] [address] Name: Lily Hooper Position: [facility] Outreach Member Role: Lifetime Consulting Physician Name: Tiara Coleman Position: [facility] AMB Nurse Member Role: Lifetime Consulting Physician Name: Donte Clark III, RN Position: [facility] RN Member Role: Primary Care Nurse Name: Tova Vidales RN Position: [facility] RN Member Role: Primary Care Nurse Name: Chelo Marie Position: S RN Member Role: Primary Care Nurse Name: Casi Georges RN Position: S RN Member Role: Primary Care Nurse Name: Soto Amador RN Position: S RN Member Role: Primary Care Nurse Name: Rafael Shah MD Position: [facility] Renal MD Member Role: Lifetime Consulting Physician Address: Address: [address] [place] [address] [address] [facility] [place] [address]- Name: Cherie Alcantar RN Position: [facility] RN Member Role: Primary Care Nurse Name: Pietro Miranda MD Position: [facility] Renal MD Member Role: Lifetime Consulting Physician Address: Address: [address] [place] [address] [facility] [place] [address]- Name: Tori Gould RN Position: S RN Member Role: Primary Care Nurse Name: Francis Mccann RN Position: S RN Member Role: Primary Care Nurse Care Team Related Persons Name: LES MEDINA Address: [address] [address]
--- OUTSIDE RECORDS SUMMARY | 2023-12-22 06:59 | XMS_ITS | Continuity of Care Document ---
Author Organization [facility] Address [address] [place] [address]- Care Team Providers Care Winch Truck Operator Name Role Phone Sebastian CASTRO, Shereen Banerjee Primary Care Physician Encounter [facility] Date(s): 07/26/23 - 08/25/23 [facility] [address] [place], [place] [address] Attending Physician: Admjonelle, Saurav Admitting Physician: AdmtrSaurav Referring Physician: Admtr, Ar8 [...] influenza virus vaccine, inactivated 03/26/16 Jeremiah rded [id number] 12y+ bivalent booster vax 06/14/22 Recorded zoster vaccine, inactivated 10/13/21 Recorded SARS-CoV-2 mRNA (ujtigvf-tflp-iokrz) vax 10/13/21 Recorded SARS-CoV-2 (COVID-19) mRNA BNT-162b2 [...] 0 Refills, Maintenance, 01/22/23 12:09:00 EDT, Tablet, [facility]/pharmacy #[id number], Partial fill upon [...] 01/22/23 12:19:00 EDT, Route to Pharmacy Electronically, [facility]/pharmacy #[id number], Partial fill upon [...] Maintenance, 238:45:00 EST, Route to Pharmacy Electronically, [facility], Partial fill upon patient request [...] Team Personnel Name: Tiffanie Cantu RN Position: [facility] RN Member Role: Primary Care Nurse Name: Ponce Wilkes RN Position: [facility] RN Member Role: Primary Care Nurse Name: Nadja Helms Position: [facility] Outreach Member Role: Lifetime Consulting Physician Name: Shereen Cortes MD Position: Reference Physician Member Role: PCP Address: Address: [address] [place], [place] [address] Name: Lily Hooper Position: [facility] Outreach Member Role: Lifetime Consulting Physician Name: Tiara Coleman Position: [facility] AMB Nurse Member Role: Lifetime Consulting Physician Name: Donte Clark III, RN Position: [facility] RN Member Role: Primary Care Nurse Name: Tova Vidales RN Position: [facility] RN Member Role: Primary Care Nurse Name: Chelo Marie Position: S RN Member Role: Primary Care Nurse Name: Casi Georges RN Position: S RN Member Role: Primary Care Nurse Name: Soto Amador RN Position: S RN Member Role: Primary Care Nurse Name: Rafael Shah MD Position: [facility] Renal MD Member Role: Lifetime Consulting Physician Address: Address: [address] [place] [address] [address] [facility], [place] [address]- Name: Cherie Alcantar RN Position: [facility] RN Member Role: Primary Care Nurse Name: Pietro Miranda MD Position: [facility] Renal MD Member Role: Lifetime Consulting Physician Address: Address: [address] [place] [address] [facility] [place] [address]- Name: Tori Gould RN Position: S RN Member Role: Primary Care Nurse Name: Francis Mccann RN Position: S RN Member Role: Primary Care Nurse Care Team Related Persons Name: LES MEDINA Address: [address] [address]
--- OUTSIDE RECORDS SUMMARY | 2023-12-22 06:59 | XMS_ITS | Continuity of Care Document ---
Author Organization [facility] Address [address] [place] [address]- Care Team Providers Care It Corporate Recruiter Name Role Phone Sebastian CASTRO, Shereen Banerjee Primary Care Physician Encounter [facility] Date(s): 07/05/23 - 08/04/23 [facility] [address] [place] [address]- [place] Allergies, Adverse Reactions, Alerts Substance Reaction Severity [...] influenza virus vaccine, inactivated 03/26/16 Jeremiah rded [id number] 12y+ bivalent booster vax 06/14/22 Recorded zoster vaccine, inactivated 10/13/21 Recorded SARS-CoV-2 mRNA (gdyzbes-jvov-vyeiu) vax 10/13/21 Recorded SARS-CoV-2 (COVID-19) mRNA BNT-162b2 [...] 0 Refills, Maintenance, 01/22/23 12:09:00 EDT, Tablet, [id number], Partial fill upon patient request if the prescription is for a schedule II opioid drug., 173juan pablo, 01/22/23 0:28:00 EDT, H... Start Date: 01/22/23 [...] Maintenance, 238:45:00 EST, Route to Pharmacy Electronically, [facility], Partial fill upon patient [...] Team Personnel Name: Tiffanie Cantu RN Position: [facility] RN Member Role: Primary Care Nurse Name: Ponce Wilkes RN Position: [facility] RN Member Role: Primary Care Nurse Name: Nadja Helms Position: [facility] Outreach Member Role: Lifetime Consulting Physician Name: Shereen Cortes MD Position: Reference Physician Member Role: PCP Address: Address: [address] Name: Lily Hooper Position: [facility] Outreach Member Role: Lifetime Consulting Physician Name: Tiara Coleman Position: [facility] AMB Nurse Member Role: Lifetime Consulting Physician Name: Donte Clark III, RN Position: [facility] RN Member Role: Primary Care Nurse Name: Tova Vidales RN Position: [facility] RN Member Role: Primary Care Nurse Name: Chelo Marie Position: [facility] RN Member Role: Primary Care Nurse Name: Casi Georges RN Position: [facility] RN Member Role: Primary Care Nurse Name: Soto Amador RN Position: [facility] RN Member Role: Primary Care Nurse Name: Rafael Shah MD Position: S Renal MD Member Role: Lifetime Consulting Physician Address: Address: [address] [place] [address] [address] [facility], [place] [address]- Name: Cherie Alcantar RN Position: S RN Member Role: Primary Care Nurse Name: Pietro Miranda MD Position: [facility] Renal MD Member Role: Lifetime Consulting Physician Address: Address: [address] [place] [address] [facility] [place] [address]- Name: Tori Gould RN Position: S RN Member Role: Primary Care Nurse Name: Francis Mccann RN Position: S RN Member Role: Primary Care Nurse Care Team Related Persons Name: LES MEDINA Address: home [address] [place] [address]
--- OUTSIDE RECORDS SUMMARY | 2023-12-22 06:59 | XMS_ITS | Continuity of Care Document ---
Author Organization [facility] Address [address] [place] [address]- Care Team Providers Care System Trainer Name Role Phone Sebastian CASTRO, Shereen Banerjee Primary Care Physician Encounter [facility] Date(s): 06/25/23 - 08/04/[address] [address] Attending Physician: Elizabeth Tejeda MD Admitting Physician: Elizabeth Tejeda MD Referring Physician: Elizabeth Tejeda MD Allergies, Adverse Reactions, Alerts Substance Reaction [...] influenza virus vaccine, inactivated 03/26/16 Jeremiah rded [id number] 12y+ bivalent booster vax 06/14/22 Recorded zoster vaccine, inactivated 10/13/21 Recorded SARS-CoV-2 mRNA (vbxxovm-jeng-nihzk) vax 10/13/21 Recorded SARS-CoV-2 (COVID-19) mRNA BNT-162b2 [...] 0 Refills, Maintenance, 01/22/23 12:09:00 EDT, Tablet, [facility]/pharmacy #[id number], Partial fill upon patient request if the prescription is for a schedule II opioid drug., 173, cm, 01/22/23 0:28:00 EDT, H... Start Date: 01/22/23 Stop Date: 02/21/23 Status: Ordered carvedilol 6.25 mg oral tablet 6.25 mg, 1, tablet, By Mouth, 2 times a day, # 60 tablet, Refills 0, Tot. Refills 0, Maintenance, 01/22/23 12:19:00 EDT, Route to Pharmacy Electronically, [facility]/pharmacy #[id number], Partial fill upon patient request [...] Maintenance, :45:00 EST, Route to Pharmacy Electronically, [facility], Partial fill upon patient [...] Team Personnel Name: Tiffanie Cantu RN Position: [facility] RN Member Role: Primary Care Nurse Name: Ponce Wilkes RN Position: [facility] RN Member Role: Primary Care Nurse Name: Nadja Helms Position: [facility] Outreach Member Role: Lifetime Consulting Physician Name: Sebastian CASTRO , Shereen Banerjee Position: Reference Physician Member Role: PCP Address: Address: [address] [place], [place] [address] Name: Lily Hooper Position: [facility] Outreach Member Role: Lifetime Consulting Physician Name: Tiara Coleman Position: [facility] AMB Nurse Member Role: Lifetime Consulting Physician Name: Donte Clark III, RN Position: [facility] RN Member Role: Primary Care Nurse Name: Tova Vidales RN Position: [facility] RN Member Role: Primary Care Nurse Name: Chelo Marie Position: [facility] RN Member Role: Primary Care Nurse Name: Casi Georges RN Position: S RN Member Role: Primary Care Nurse Name: Soto Amador RN Position: S RN Member Role: Primary Care Nurse Name: Rafael Shah MD Position: [facility] Renal MD Member Role: Lifetime Consulting Physician Address: Address: [address] [place] [address] [address] [facility] [place] [address]- Name: Cherie Alcantar RN Position: S RN Member Role: Primary Care Nurse Name: Pietro Miranda MD Position: [facility] Renal MD Member Role: Lifetime Consulting Physician Address: Address: [address] [place] [address] [facility] [place] [address]- Name: Tori Gould RN Position: S RN Member Role: Primary Care Nurse Name: Francis Mccann RN Position: S RN Member Role: Primary Care Nurse Care Team Related Persons Name: LES MEDINA Address: [address] [address]
--- OUTSIDE RECORDS SUMMARY | 2023-12-22 06:59 | XMS_ITS | Continuity of Care Document ---
Author Organization [facility] Address [address] [place] [address]- Care Team Providers Care Laboratory Veterinarian Name Role Phone Sebastian CASTRO, Shereen Banerjee Primary Care Physician Encounter [facility] [place] Date(s): 07/26/23 - 08/02/23 [facility] [address] [place], [place] [address] Attending Physician: Machelle Kruger MD Admitting Physician: Machelle Kruger MD Referring Physician: Kapil Tolliver MD Allergies, Adverse Reactions, Alerts Substance Reaction [...] influenza virus vaccine, inactivated 03/26/16 Jeremiah rded [id number] 12y+ bivalent booster vax 06/14/22 Recorded zoster vaccine, inactivated 10/13/21 Recorded SARS-CoV-2 mRNA (xumgdrm-puhd-hgxcs) vax 10/13/21 Recorded SARS-CoV-2 (COVID-19) mRNA BNT-162b2 [...] 0 Refills, Maintenance, 01/22/23 12:09:00 EDT, Tablet, [facility]/pharmacy #[id number], Partial fill upon patient request if the prescription is for a schedule II opioid drug., 173, cm, 01/22/23 0:28:00 EDT, H... Start Date: 01/22/23 Stop Date: 02/21/23 Status: Ordered carvedilol 6.25 mg oral tablet 6.25 mg, 1, tablet, By Mouth, 2 times a day, # 60 tablet, Refills 0, Tot. Refills 0, Maintenance, 01/22/23 12:19:00 EDT, Route to Pharmacy Electronically, [facility]/pharmacy #[id number], Partial fill upon patient request [...] 0 Refills, Maintenance, 01/22/23 12:12:00 EDT, Tablet, [facility]/pharmacy #[id number], Partial fill upon patient request if the prescription is for a schedule II opioid drug., 173, cm, 01/22/23 0:28:00 ED... Start Date: 01/22/23 Stop Date: 02/21/23 Status: Ordered tamsulosin 0.4 mg oral capsule 0.4 mg, 1, capsule, By Mouth, Daily, # 30 capsule, Refills 0, Tot. Refills 0, Maintenance, :45:00 EST, Route to Pharmacy Electronically, [facility], Partial fill upon [...] complicated Confirmed Active Severe obesity Confirmed Active Vital Signs Most recent to oldest [Reference Range]: 1 Height 179.6 cm (07/26/23 4:01 PM) Weight 129.5 kg (07/26/23 4:01 PM) Oxygen Saturation [94-100 %] 98 % (07/26/23 4:01 PM) Pulse Rate [55-90 bpm] 89 bpm (07/26/23 4:01 PM) Body Mass Index [18.5-24.99 kg/m2] 40.15 kg/m2 *>HHI* (07/26/23 4:01 PM) Blood Pressure [90-138/55-84 mm Hg] 152/ 76mm Hg *H* (07/26/23 4:01 PM) Mode of Delivery (Oxygen) Room air (07/26/23 4:01 PM) Blood pressure sites Arm, right (07/26/23 4:01 PM) Weight Obtained Via Patient/family state d (07/26/23 4:01 PM) Social History Social History Type Response Smoking Status Never smoker; Tobacc o user in household: No entered on: 02/14/15 Sex Patient Care team information Care Team Personnel Name: Tiffanie Cantu RN Position: [facility] RN Member Role: Primary Care Nurse Name: Ponce Wilkes RN Position: S RN Member Role: Primary Care Nurse Name: Nadja Helms Position: [facility] Outreach Member Role: Lifetime Consulting Physician Name: Shereen Cortes MD Position: Reference Physician Member Role: PCP Address: Address: [address] [place], [place] [address] Name: Lily Hooper Position: [facility] Outreach Member Role: Lifetime Consulting Physician Name: Tiraa Coleman Position: [facility] AMB Nurse Member Role: Lifetime Consulting Physician Name: Donte Clark III, RN Position: [facility] RN Member Role: Primary Care Nurse Name: Tova Vidales RN Position: S RN Member Role: Primary Care Nurse Name: Chelo Marie Position: S RN Member Role: Primary Care Nurse Name: Casi Georges RN Position: [facility] RN Member Role: Primary Care Nurse Name: Soto Amador RN Position: [facility] RN Member Role: Primary Care Nurse Name: Rafael Shah MD Position: [facility] Renal MD Member Role: Lifetime Consulting Physician Address: Address: [address] [place] [address] [address] [facility] [place] [address]- Name: Cherie Alcantar RN Position: [facility] RN Member Role: Primary Care Nurse Name: Pietro Miranda MD Position: [facility] Renal MD Member Role: Lifetime Consulting Physician Address: Address: [address] [place] [address] [facility] [place] [address]- Name: Tori Gould RN Position: [facility] RN Member Role: Primary Care Nurse Name: Francis Mccann RN Position: S RN Member Role: Primary Care Nurse Care Team Related Persons Name: LES MEDINA Address: [place] [address]
--- OUTSIDE RECORDS SUMMARY | 2023-12-22 06:59 | XMS_ITS | Patient Health Record ---
Author Organization [facility] Address [address] [place] [address] Care Team Providers Care Tightener Name Role Phone Sebastian CASTRO, Shereen Goodwin Primary Care Provider Un available Jacobo Rabago Unavailable [phone] ALLERGIES Allergen (clinical drug ingredient) Drug/Non Drug Allergy documented on EMR Reaction Allergy Type Onset Date Status cephalexin Cephalexin muscle control oss Drug Allergy Active metformin Metformin HCl abdominal pain Drug Allergy Active vancomycin Vancomycin HCl itching,hives,sw e lling Drug Allergy Active REASON FOR REFERRAL No Information MEDICATIONS Medication SIG (Take, Route, Frequency, Duration) Notes Start Date End Date Status Work Note . . . patient is disab led from work until further notice Not-Taking Custom Orthotics . . . please customize his current orthoses to offload left 2nd mtpj ulcer for . 08/20/2015 Not-Taking Keflex 500 MG 1 capsule Orally octavia ry 12 hrs for 14 days 08/07/2015 Not-Taking Lantus 100 UNIT/ML 0.02 ml Subcutaneous Once a day for 30 day(s) Not-Fili ing Vancomycin Not-Takin g Allopurinol 100 MG Orally A ctive Augmentin 875-125 MG 1 tablet Orally octavia ry 12 hrs for 10 day(s) 05/13/2016 Not-Taking Extra Depth Orthopedic Shoes (1 Pair) with Customized Heat Molded Multidensity Innersoles (3 Pair) as directed Dx: IDDM/Polyneuropathy (E10.42), Hammertoe Foot Deformity (M20.41,M20.42), Preulcerative Skin Lesion(s) (L85.1) 08/23/2018 Active Work Note . . . patient is disab led from work until further notice Not-Taking Trulicity Active Colcrys 0.6 MG 1 tablet Orally Once a day for 14 Not-Taking amLODIPine Besylate Active Work Note . . . due to severe complications from his diabetes this patient can no longer work due to risk of leg amputation and premature 07/08/2016 Not-Taking Lisinopril 20 MG 1 tablet Orally Once a day for 30 day(s) Active Doxycycline Not-Taki ng Gabapentin 400 MG 1 capsule Orally Thr ee times a day for 30 day(s) Active Physical Therapy . . . 2-3x/week for 3- 4 weeks 02/07/2017 Not-Taking Metformin & Diet Manage Prod 500 MG as directed Orally Not-Takin g Atorvastatin Calcium Active Toujeo SoloStar Acti ve Work Note . . . patient is disab led from work until further notice 02/13/2016 Not-Taking HumaLOG 100 UNIT/ML Subcutaneous Active vitamin D Not-Taking IMMUNIZATIONS Vaccine Route Administration Date Status Comme nts Influenza Unknown 06/10/2015 Administered Influenza Unknown 02/24/2016 Administered Influenza Unknown 05/20/2018 Administered SOCIAL HISTORY Tobacco Use: Social History Observation Description Date Details (start date - stop date) Never Smoker NA - NA Sex Assigned At : Social History Observation Description Sex Assigned At Unknown Tobacco Use/Smoking Question Answer Notes Are you a: nonsmoker Additional Findings: Tobacco Non-User Current no n-smoker Alcohol Screen Question Answer Notes Did you have a drink containing alcohol in the p ast year? No Points 0 Interpretation Negative Tobacco use other than smoking: Question Answer Notes Are you an other tobacco user? No PROBLEMS Problem Type ICD Code Onset Dates Problem Status W/U Status Risk SNOMED Code Notes Problem Primary osteoarthrit is, right ankle and foot (M19.071) Active confirmed Localized, prim swati osteoarthritis of the ankle and/or foot (256346087) Problem Primary osteoarthrit is, left ankle and foot (M19.072) Active confirmed Localized, prim swati osteoarthritis of the ankle and/or foot (280222685) Problem Other hammer toe(s) (acquired), right foot (M20.41) Active confirmed Acquired hammer toe of right foot (2086260852363681) Problem Other hammer toe(s) (acquired), left foot (M20.42) Active confirmed Acquired hammer toe of left foot (5436467589425522) PLAN OF TREATMENT Pending Test Test Name Order Date X ray : Foot, left 2V 05/10/2013 X ray : Foot, right 2V 05/13/2016 X ray : Foot, right 2V 05/10/2013 *Uric Acid, Serum 02/13/2016 Hemoglobin A1c 05/25/2018 *CBC With Differential/Platelet 02/13/20 16 *Sedimentation Rate-Westergren 6 X ray : Foot, left 3V 02/07/2017 X ray : Foot, left 3V 02/13/2016 X ray : Foot, left 3V 03/19/2016 X ray : Foot, left 3V 08/07/2015 X ray : Foot, left 3V 05/13/2016 X ray : Foot, left 3V 04/13/2016 37306-BAHTTRL NAIL, 6 OR MORE 10/27/2015 14765-QDCPGND NAIL, 6 OR MORE 12/31/2015 52394-TQDDRBM NAIL, 6 OR MORE 01/12/2016 31838-MHRYHIM NAIL, 6 OR MORE 08/07/2015 51441-PUDTLFQ NAIL, 6 OR MORE 08/20/2015 42383-TVZXAMX NAIL, 6 OR MORE 02/20/2016 43759-WPKWAYS NAIL, 6 OR MORE 04/18/2017 46128-SSHZPGX NAIL, 6 OR MORE 02/07/2017 52063-VQOOPUZ NAIL, 6 OR MORE 07/08/2016 32376-FKYJDAH NAIL, 6 OR MORE 09/06/2016 99482-SNZLVXB NAIL, 1-5 02/16/2018 90566-AAPBZNG NAIL, 1-5 05/25/2018 79489-Ngkricqv Plate 02/16/2018 08652-Fucgyyhj Plate 07/08/2016 12985- Debride <25 sq cm 06/02/2016 30628- Debride <25 sq cm 05/19/2016 19461- Debride <25 sq cm 12/06/2013 57272- Debride <25 sq cm 08/20/2015 32696- Debride <25 sq cm 05/10/2013 98010- Debride <25 sq cm 04/28/2016 57108- Debride <25 sq cm 05/13/2016 02639- Debride <25 sq cm 04/13/2016 72628-UEHQEVA SKIN/TISSUE 08/07/2015 71650-KJXPUOW SKIN/TISSUE 08/20/2015 41323-AJSF SKIN LESIONS, OVER 4 08/20/19 16 71326-SYCL SKIN LESIONS, OVER 4 02/20/20 16 97594-KNMU SKIN LESIONS, OVER 4 08/07/19 16 06931-FQPS SKIN LESIONS, OVER 4 10/27/19 16 20658-CEQN SKIN LESIONS, OVER 4 09/07/19 17 69756-YFFU SKIN LESIONS, OVER 4 11/09/19 17 72063-SPHG SKIN LESIONS, OVER 4 02/08/20 17 80522-WSVP SKIN LESIONS, OVER 4 07/08/19 17 80910-JUQL SKIN LESIONS, OVER 4 04/18/20 17 43122-RTUM SKIN LESIONS, OVER 4 02/17/20 18 15213-LQUM SKIN LESIONS, OVER 4 05/25/20 18 35267-UTBY SKIN LESIONS, OVER 4 08/23/19 19 48790-JXZT SKIN LESIONS, OVER 4 11/23/19 19 97031-HVWU SKIN LESIONS, 2 TO 4 05/10/20 13 67128-HHGJ SKIN LESIONS, 2 TO 4 12/07/19 14 I3899-PQCAJILA DYSTROPHIC NAILS ANY # H9756-GPSBMEPS DYSTROPHIC NAILS ANY # 22581-RQLWTJPP OF HEMATOMA/FLUID 018 Insurance Providers Payer Name Payer Address Payer Phone Subscriber Number Group Number Insured Name Patient Relationship to Insured Coverage Start Date Coverage End Date Medicare [employer] [address] [place] [address] Moustapha Ruiz Self - patient is the insured MEDICAL (GENERAL) HISTORY Medical History History ICD Code poor circulation high blood pressure diabetic Gout measles chicken pox Surgical History Surgery Date(Month/Year) ACL right foot left foot Graft 01/1994 left middle finger Graft left foot, skin graft 08/2014 Left Foot Amputation @ [facility] [place] 06/28/2017 Hospitalization History Reason Date(Month/Year) [facility] - Stomach Pain was disch arged on 01/31/16 01/29/2016 [facility] [place] - right second toe infection [address] [facility] [place] - Amputation - 22 day stay 06/2017
--- OUTSIDE RECORDS SUMMARY | 2023-12-22 06:59 | XMS_ITS | Continuity of Care Document ---
Author Organization [facility] Address [address] [address]- Care Team Providers Care Embedded Developer Name Role Phone Sebastian CASTRO, Shereen Banerjee Primary Care Physician Encounter [facility] [place] Date(s): 06/16/23 - 07/16/23 [facility] [address] [address]- [place] Allergies, Adverse Reactions, Alerts Substance Reaction [...] influenza virus vaccine, inactivated 03/26/16 Jeremiah rded [id number] 12y+ bivalent booster vax 06/14/22 Recorded zoster vaccine, inactivated 10/13/21 Recorded SARS-CoV-2 mRNA (labdaxh-mach-lwbbx) vax 10/13/21 Recorded SARS-CoV-2 (COVID-19) mRNA BNT-162b2 [...] 01/22/23 12:19:00 EDT, Route to Pharmacy Electronically, [facility]/pharmacy #[id number], Partial fill upon patient request [...] 0 Refills, Maintenance, 01/22/23 12:12:00 EDT, Tablet, [facility]/pharmacy #[id number], Partial fill upon patient request if the prescription is for a schedule II opioid drug., 173, cm, 01/22/23 0:28:00 ED... Start Date: 01/22/23 Stop Date: 02/21/23 Status: Ordered tamsulosin 0.4 mg oral capsule 0.4 mg, 1, capsule, By Mouth, Daily, # 30 capsule, Refills 0, Tot. Refills 0, Maintenance, 238:45:00 EST, Route to Pharmacy Electronically, [facility], Partial fill upon patient [...] Team Personnel Name: Tiffanie Cantu RN Position: [facility] RN Member Role: Primary Care Nurse Name: Ponce Wilkes RN Position: [facility] RN Member Role: Primary Care Nurse Name: Nadja Helms Position: [facility] Outreach Member Role: Lifetime Consulting Physician Name: Shereen Cortes MD Position: Reference Physician Member Role: PCP Address: Address: [address] [place], [place] [address] Name: Lily Hooper Position: [facility] Outreach Member Role: Lifetime Consulting Physician Name: Tiara Coleman Position: [facility] AMB Nurse Member Role: Lifetime Consulting Physician Name: Donte Clark III, RN Position: [facility] RN Member Role: Primary Care Nurse Name: Tova Vidales RN Position: [facility] RN Member Role: Primary Care Nurse Name: Chelo Marie Position: [facility] RN Member Role: Primary Care Nurse Name: Casi Georges RN Position: [facility] RN Member Role: Primary Care Nurse Name: Soto Amador RN Position: S RN Member Role: Primary Care Nurse Name: Rafael Shah MD Position: [facility] Renal MD Member Role: Lifetime Consulting Physician Address: Address: [address] [place] [address] [facility] [place] [address]- Name: Cherie Alcantar RN Position: S RN Member Role: Primary Care Nurse Name: Pietro Miranda MD Position: [facility] Renal MD Member Role: Lifetime Consulting Physician Address: Address: [address] [place] [address] [facility] [place] [address]- Name: Tori Gould RN Position: S RN Member Role: Primary Care Nurse Name: Francis Mccann RN Position: S RN Member Role: Primary Care Nurse Care Team Related Persons Name: LES MEDINA Address: [address] [address]
--- OUTSIDE RECORDS SUMMARY | 2023-12-22 06:59 | XMS_ITS | Continuity of Care Document ---
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 Name Role Phone Sebastian CASTRO, Shereen Banerjee Primary Care Physician [place] [facility] [place] - 01/22/[address] [id number] Discharge Disposition: A-D/C Home Attending Physician: Donal CASTRO, Emily Admitting Physician: Gregg Thibodeaux MD Referring Physician: Not on Staff, Referring [...] influenza virus vaccine, inactivated 03/26/16 Jeremiah rded [id number] 12y+ bivalent booster vax 06/14/22 Recorded zoster vaccine, inactivated 10/13/21 Recorded SARS-CoV-2 mRNA ([id number]) vax 10/13/21 Recorded SARS-CoV-2 (COVID-19) mRNA BNT-162b2 [...] opioid drug. Start Date: 09/15/22 Status: Ordered amLODIPine 10 mg oral tablet 10 mg, Tablet, By Mouth, Hold for: SBP less than 100, 01/22/23 9:00:00 EDT Start Date: 01/22/23 Stop Date: 01/22/23 Status: Completed atorvastatin 10 mg oral tablet 1 tablet [...] 0 Refills, Maintenance, 01/22/23 12:09:00 EDT, Tablet, [facility]/pharmacy #[id number], Partial fill upon patient request if the prescription is for a schedule II opioid drug., 173, cm, 01/22/23 0:28:00 EDT, H... Start Date: 01/22/23 Stop Date: 02/21/23 Status: Ordered carvedilol 6.25 mg oral tablet 6.25 mg, 1, tablet, By Mouth, 2 times a day, # 60 tablet, Refills 0, Tot. Refills 0, Maintenance, 01/22/23 12:19:00 EDT, Route to Pharmacy Electronically, [facility]/pharmacy #[id number], Partial fill upon patient request if the prescription is for a schedule II o... Start Date: 01/22/23 Stop Date: 02/21/23 Status: Ordered carvedilol 6.25 mg oral tablet 6.25 mg, Tablet, By Mouth, Hold for: SBP less than 100For heart rate less than 55, 01/21/23 21:00:00 EDT Start Date: 01/21/23 Stop Date: 01/21/23 Status: Completed carvedilol 6.25 mg oral tablet 6.25 mg, Tablet, By Mouth, Hold for: SBP less than 100For heart rate less than 55, 01/22/23 9:00:00EDT Start Date: 01/22/23 Stop Date: 01/22/23 Status: Completed gabapentin 300 mg oral capsule 300 mg, Capsule, By Mouth, 01/21/23 21:00:00 EDT Start Date: 01/21/23 Stop Date: 01/21/23 Status: Completed gabapentin 600 mg oral tablet 2 tablets, By Mouth, 2 times a day, 0 Refills, Maintenance, 08/11/20 16:30:00 EST, Partial fill upon patient request if the prescription is for a schedule II opioid drug. Start Date: 08/11/20 Status: Ordered hydrALAZINE 25 mg oral tablet 50 mg, Tablet, By Mouth, Hold for: SBP less than 100, 01/22/23 9:00:00 EDT Start Date: 01/22/23 Stop Date: 01/22/23 Status: Completed hydrALAZINE 25 mg oral tablet 50 mg, 2, tablet, By Mouth, 3 times a day, # 180 tablet, Refills 0, Tot. Refills 0, Maintenance, 08/20/22 8:45:00 EST, Route to Pharmacy Electronically, [facility], Partial fill upon patient request if the prescription is for a schedule... Start Date: 08/20/22 Stop Date: 09/19/22 Status: Ordered NovoLOG FlexPen 100 units/mL injectable solution PLEASE SEE ATTACHED FOR DETAILED DIRECTIONS Start Date: 08/12/22 Status: Ordered sevelamer carbonate 800 mg oral tablet = 800 mg, By Mouth, 3 times a day with meals, # 90 tablet, 0 Refills, Maintenance, 01/22/23 12:12:00 EDT, Tablet, [facility]/pharmacy #[id number], Partial fill upon patient request if the prescription is for a schedule II opioid drug., 173, cm, 01/22/23 0:28:00 ED... Start Date: 01/22/23 Stop Date: 02/21/23 Status: Ordered tamsulosin 0.4 mg oral capsule 0.4 mg, 1, capsule, By Mouth, Daily, # 30 capsule, Refills 0, Tot. Refills 0, Maintenance, 238:45:00 EST, Route to Pharmacy Electronically, [facility], Partial fill upon patient request if the prescription is for a schedule II opi... Start Date: 08/20/22 Stop Date: 09/19/22 Status: Ordered Toumando SoloStar 300 units/mL subcutaneous solution = 6 units, Subcutaneous Injection, Daily at bedtime, # 1.5 mL, 0 Refills, Maintenance, 08/12/22 14:19:00 EST, Solution, Partial fill upon patient request if the prescription is for a schedule II opioid drug. Start Date: 08/12/22 Status: Ordered Problem List Condition Confirmation Course Effective Dates Status Health atus Informant Chronic kidney disease (CKD), stage III (moderate) Confirmed Active Diabetes Confirmed Active Hypertension Confirmed Active Multinodular goiter Confirmed Active Open wound of foot, complicated Confirmed Active Severe obesity Confirmed Active Results Radiology Reports * Exam Date Time Procedure Performing Provider Status 01/20/23 2:15 PM IR Venous Access Device Insertion Auth (Verified) Notes: (IR Venous Access Device Insertion) Reason For Exam: PermCath needs HD;Other: IR Venous Access Device Insertion Patient: MOUSTAPHA MEDINA Study Date: 01/20/2023 Performing: Deepika Gordon MD Referring: : 1965 Age: 57 Gender: MALE Pre-procedure diagnosis and Indication: 57 yo patient with CKD, LUE AVF awaiting maturity, now with need to initiate HD in the interim. IR consulted for tunneled HD catheter placement for access for hemodialysis. Exam: Prior to the procedure, the patient was seen and the nature of the procedure explained along with its attendant risks and benefits to the patient. Informed consent was obtained from, the patient . The patient underwent a pre-sedation assessment. On completion of this it was determined the patient is appropriate for the planned procedure. The patient arrived in IR room 2 for a tunneled hemodialysis catheter insertion. PROCEDURE: The patient was positioned supine and secured with arm boards. The access site was evaluated with ultrasound and images archived. The site was prepped with chloraprep and draped in the usual sterile fashion. . Local anesthetic was given and The vessel was identified using, ultrasound access was gained into the right internal jugular vein using a regular micropuncture set. Next, a site for catheter entry on the right upper chest was selected. Local analgesia was administered at this site and along the anticipated tunneling tract. A small incision was made and the catheter was tunneled from the right chest to the right neck incision site. The access tract was serially dilated over an 0.035 guidewire and the catheter was inserted via a peelaway sheath placed in the right IJ access. The catheter was tested with good flow and return. No leaks were noted. The Catheter was flushed with heparin 1000u/ml 2 ml's per lumen. The catheter was Secured with 2-0 prolene suture and liquid tissue adhesive was used on the right neck incision site. The sterile field was maintained throughout the procedure and patient tolerated the procedure well with no complications of the procedure. Catheter used: [employer] HEMO-FLOW STR 14.5FRX28 - Qty: 1 Each Part #: [id number] GTIN: [id number] Lot #: [id number] Exp Date: 2024-08-06 estimated blood loss was minimal Specimens/samples: no specimens or samples were sent for this procedure Patient transferred to [place] [address] Post procedure instructions sent in envelope with the patient Impression: 1. Patent and compressible right IJ vein by ultrasound. 2. New 14.5 Fr x 28 cm right-sided tunneled hemodialysis catheter placement, with catheter tip in the proximal right atrium. The catheter is ready for immediate use. Should catheter malfunction develop please contact this service directly rather than having a diagnostic study performed elsewhere. Fluoroscopy time and dose Total Fluoro Time: 0.2 mins Total dose 14 mGy Total DAP 307.12 - ?Gy/m2 No contrast was used for this procedure Local Anesthetic Sensorcaine 0.5% w/ 1:200,000 Epi 10 ml's SQ Lidocaine 1% 10 ml's SQ Agent Dose Route Time By Fentanyl 50 mcg IV 14:38:43 EJ Signed By Deepika Gordon MD On 01/20/2023 15:44:42 Deepika Gordon MD Dictated By: Deepika Gordon MD Dictated Date/Time: 01/20/23 2:15 pm Reviewed By: Deepika Gordon MD Signed By: Deepika Gordon MD Signed Date/Time: 01/20/23 2:15 pm Transcribed By: KAILYN Transcribed Date/Time: 01/20/23 2:15 pm * Exam Date Time Procedure Performing Provider Status 01/19/23 10:28 AM Chest 2 Views Frontal and Lat Kole Duarte; Auth (Verified) Notes: (Chest 2 Views Frontal and Lat) Reason For Exam: chest pain;Other: RESULT: Chest 2 Views Frontal and Lat Chest 2 Views Frontal and Lat HX OF PRESENT ILLNESS: sob since 2 days,dignosed with ESRD got a fistula done in august but not on dialysis yet; Reason: chest pain; Clinical Question(s): Pneumonia / Pneumonia COMPARISON: 09/14/2022 FINDINGS: LINES AND TUBES: None. LUNGS AND PLEURA: The central pulmonary vasculature is prominent and indistinct. Small left pleural effusion and left basilar atelectasis. No pneumothorax. HEART, MEDIASTINUM AND FRANCIA: Mild prominence of the cardiac silhouette, unchanged. Normal mediastinal and hilar contour. BONES AND SOFT TISSUES: No acute abnormality. IMPRESSION: Pulmonary vascular congestion with a small left pleural effusion. WSN: [id number] Ordering Physician: Wm Brink Dictated By: Juan Salazar MD Dictated Date/Time: 01/19/23 10:29 a Reviewed By: Juan Salazar MD Signed By: Juan Salazar MD Signed Date/Time: 01/19/23 10:29 am Transcribed By: VIKASH Transcribed Date/Time: 01/19/23 10:28 am Vital Signs Most recent to oldest [Reference Range]: 1 2 3 4 Height 173 cm (01/22/23 12:28 AM) 173 cm (01/21/23 7:54 PM) 173 cm (01/21/23 4:04 PM) Weight 129.6 kg (01/22/23 6:23 AM) 135.6 kg (01/20/23 7:37 AM) 132.7 kg (01/19/23 5:55 PM) Oxygen Saturation [94-100 %] 92 % *L* (01/22/23 12:28 AM) 92 % *L* (01/21/23 7:54 PM) 92 % *L* (01/21/23 4:04 PM) Pulse Rate [55-90 bpm] 77 bpm (01/22/23 11:05 AM) 75 bpm (01/22/23 12:28 AM) 82 bpm (01/21/23 8:34 PM) Body Mass Index [18.5-24.99 kg/m2] 44.34 kg/m2 *>HHI* (01/19/23 5:55 PM) Blood Pressure [90-138/55-84 mm Hg] 153/75mm Hg *H* (01/22/23 12:00 PM) 163/77mm Hg *H* (01/22/23 11:05 AM) 163/77mm Hg *H* (01/22/23 11:05 AM) 163/77mm Hg *H* (01/22/23 11:05 AM) Respiratory Rate [16-30 br/min] 18 br/min (01/22/23 12:28 AM) 19 br/min (01/21/23 8:41 PM) 18 br/min (01/21/23 8:33 PM) Temperature [96.8-100.4 DegF] 97.7 DegF (01/22/23 12:28 AM) 98.0 DegF (01/21/23 7:54 PM) 97.5 DegF (01/21/23 4:04 PM) Liters per Minute 3 L/min (01/21/23 8:17 AM) 3 L/min (01/20/23 11:13 PM) 3 L/min (01/20/23 7:38 PM) Mode of Delivery (Oxygen) CPAP (01/22/23 12:28 AM) Room air (01/21/23 7:54 PM) Room air (01/21/23 4:04 PM) Blood pressure sites Arm, right (01/22/23 12:00 PM) Arm, right (01/22/23 12:28 AM) Arm, right (01/21/23 7:54 PM) Temperature Route Oral (01/22/23 12:28 AM) Oral (01/21/23 7:54 PM) Oral (01/21/23 4:04 PM) Dry Weight 132.7 kg (01/19/23 5:55 PM) 132.7 kg (01/19/23 9:10 AM) Weight Obtained Via Bed scale (01/22/23 6:23 AM) Bed scale (01/20/23 7:37 AM) Dry Weight Obtained Via Patient/family stated (01/19/23 9:10 AM) Social History Social History Type Response Smoking Status Never smoker; Tobacc o user in household: No entered on: 02/14/15 Sex History and physical note * Martina CASTRO, Jacques: PERFORM, MODIFY Event Display: History and Physical Hospital Authored Date: [id number] Patient: ??MOUSTAPHA MEDINA ? Age:??57 Years?Sex:??Male?:??1965?? Chief Complaint/Reason for Consultation SOB since few days,patient has ESRD and had his fistula left wrist for dialysis,no dialysis startedyet, crackles lower lung bilaterally,HTN on scene History of Present Illness 57 year-old male with??PMH of??CKD stage IV-V,??diabetes mellitus type II, insulin-dependent,??hypertension,??multinodular??goiter,??BPH,??peripheral vascular disease status post??left??BKA ,??obesity status post gastric sleeve in 2020,?inflatable penile prosthesis (07/2022)?? is presenting with??difficulty??in breathing over 1 month,??worsening over the past few days, suggestive of??orthopnea,??dyspnea on exertion,??suggesting ??fluid overload.??Admitted for review and further management per nephrology. ?? Denies any??complaints of chest pressure,??chest pain/heaviness/tightness??or nausea vomiting,??continues to have worsening bilateral leg swelling,? Chest x-ray???pulmonary vascular congestion with small left pleural effusion EKG???NSR,??nonspecific ST-T abnormalities Blood pressure???161/85, mild tachycardia, Labs notable for??normal electrolytes,??mild??anion gap metabolic acidosis,??BUN/creatinine??89/6.0,??which is close to his??last baseline??at the time of??discharge??in 08/2022,??elevated TSH, however normal free T4 Last echocardiogram??07/2022???EF of??60 to 65%,??no wall motion??or significant valvular abnormalities Patient mentions that??he has??not been taking his carvedilol over the past week,??as he ran out ofit??and had trouble refilling it??from his primary care provider. Reconciled medications, Patient has been??admitted??at [facility]??in November,??for his right fourth toe amputation??sincehis last discharge from here in August??for similar complaints??of fluid overload and worsening renal function??and later??with vascular surgery in September, for creation of left radial??cephalic??fistula. During his recent admission??to the [facility],??he was started??on??IV vancomycin, whichhe??finished couple weeks ago, and has??VNA??to care for the??amputation site, which has been healing well. ?? Patient was noted to be??significantly fluid overloaded??at bedside, with??mild orthopnea,??although O2 sats in high 90s on??2 L via nasal cannula Nephrology team at bedside to see patient,??plan on starting IV Bumex and??plan for??permacath and hemodialysis tomorrow. Denies any significant chest pain, nausea vomiting,??abdominal discomfort or pain, has been having some chills , but no fevers. Review of Systems Patient reports having??worsening weight gain, including??distending abdomen,??scrotal swelling,??right leg??swelling,??orthopnea,??dyspnea on exertion??(has left??prosthesis for his??BKA) Denies any fevers, but reports feeling hot and cold and having chills Denies any urinary discomfort or flank pain Urine output has decreased significantly, however still making urine Denies any??nausea vomiting Objective Vital Signs?? Temperature: 97.5 DegF (01/19/23 09:10:00) Temperature Route: Oral (01/19/23 09:10:00) Pulse Rate:??96 bpm??High (01/19/23 12:24:00) Respiratory Rate: 26 br/min (01/19/23 12:24:00) Systolic Blood Pressure:??165 mm Hg??High (01/19/23 12:24:00) Diastolic Blood Pressure: 81 mm Hg (01/19/23 12:24:00) Mean Arterial Pressure: 110 mm Hg (01/19/23 09:10:00) Pulse Pressure: 84 mm Hg (01/19/23 12:24:00) Oxygen Saturation: 95 % (01/19/23:24:00) Liters per Minute: 2 L/min (01/19/23 09:10:00) Mode of Delivery (Oxygen): Room air (01/19/23:24:00) ? Physical Exam General: Alert,??obese,??oriented x3,??able to speak in full sentences,??able to give reliable history, mild respiratory discomfort, orthopnea HEENT Normocephalic. Pupils are equal, round and reactive to light. Extraocular muscles intact. Oropharynx clear, moist mucous membranes moist.?? Neck: Supple, Full range of motion. Trachea midline. No JVD or bruits. Respiratory: Decreased breath sounds at bases,??no rhonchi/wheezing Cardiovascular???S1-S2, mild tachycardia,??no rubs or gallops Gastrointestinal: Abdomen soft, non-tender,??significantly distended. Normal bowel sounds. No pulsatile mass. No hepatosplenomegaly. Extremities: Right lower extremity??2+ pitting??to nonpitting edema, scabbed scratch??parsons, wrinkling of skin, status post??right??fourth toe??amputation, site??good, status post left BKA, prosthesis in place Neurologic: AAOx3, Cranial nerves II-XII grossly intact. Speech normal. No focal neurological deficits. Deep tendon reflexes +2 bilaterally. Flexor plantar response. Moves all extremities spontaneously. Sensation intact bilaterally. Skin: No rashes or lesions. No petechiae or purpura.? Assessment/Plan Assessment:??57 year-old male with PMH of CKD stage IV-V, diabetes mellitus type II, insulin-dependent, hypertension, multinodular goiter, BPH, peripheral vascular disease status post left BKA , obesity status post gastric sleeve in 2020, inflatable penile prosthesis (07/2022) is presenting with difficulty in breathing over 1 month, worsening over the past few days, suggestive of orthopnea, dyspnea on exertion, suggesting fluid overload. Admitted for review and further management per nephrology. ?? Fluid overload (E87.70): CKD (chronic kidney disease), stage V (N18.5): Metabolic acidosis, increased anion gap (E87.29): ?? Patient with known CKD stage V,??with worsening??fluid status??over the past month, with??acute worsening over the past few days No recent medication changes except??patient??was out of carvedilol,??for about a week,??unable to fill his refills Noted to have uncontrolled hypertension,??urine output has decreased,??worsening leg edema, orthopnea, dyspnea on exertion Last echocardiogram??07/2022???EF of??60 to 65%,??no wall motion??or significant valvular abnormalities, currently no??signs symptoms of??cardiac ischemia, EKG with no acute changes BUN/creatinine??close to his baseline,??however??with worsening fluid overload??clinically??and on chest x-ray, with??mild??anion gap metabolic acidosis, potassium??within normal range [facility] nephrology??on board,??plan on starting IV Bumex??(hold p.o. Bumex)??4 mg 3 times a day??(status post Lasix 20 mg IV once in ED)??and??for possible permacath placement and hemodialysis tomorrow Patient does have a??left??forearm fistula??(radiocephalic) Monitor urine output,??monitor renal function while on IV Bumex,??plan for dialysis??per nephrology ?? Uncontrolled hypertension (I10):? Suboptimal control blood pressure, patient has been out of his carvedilol??for the past??week, resumed at 6.25 mg p.o. Hydralazine, carvedilol, amlodipine??to continue??(patient??is no longer??using the clonidine patch) We will adjust medications as needed,? Diabetes mellitus type 2 in obese (E11.69):??. ?? POC glucose with meals,??insulin sliding scale,??Lantus??if required??(takes Toujeo 6 units??at bedtime, as needed??and also sliding scale as needed) ? Peripheral vascular?? disease s/p Left BKA s/p Rt 4th toe amp? Hydronephrosis of left leg, has been ambulatory at home,??right??fourth toe amputation site??healing well (done recently at [facility] in November) No current complaints ?? Obesity, morbid (E66.01):??BMI more than 40,? BPH (benign prostatic hyperplasia) (N40.0):??Continue tamsulosin, ?? Hyperlipidemia (E78.5):??Lipitor 10 mg nightly ? VTE Prophylaxis:??Heparin sc? Code Status:??Full? Discharge Planning:??Likely home??when ready, plan for hemodialysis, IV Bumex, monitor renal function/respiratory status ?? Updated at bedside ? Histories Allergies Allergies ?(Active and Proposed Allergies Only) Keflex? (Severity: Unknown severity, Onset: Unknown) ?Reactions: muscles locked up, could not move metFORMIN? (Severity: Unknown severity, Onset: Unknown) ?Reactions: GI upset ?Comments: nausea/vomiting ? Past Medical History/Problem List Active Problems??(6) Chronic kidney disease (CKD), stage III (moderate) Diabetes Hypertension Multinodular goiter Open wound of foot, complicated Severe obesity ? Past Surgical History Total thyroid lobectomy, unilateral; with or without isthmusectomy: 03/25/15 ? Social History Alcohol Details:??Use: Never. Tobacco Details:??Never smoker, Tobacco user in household: No. ? Psychosocial History ? Family History No family history recorded. ? Medications Home Medications Allopurinol?100?Milligram?By Mouth?Daily Amlodipine (amLODIPine 10 mg oral tablet)?1?tab(s)?10?Milligram?By Mouth?Daily Atorvastatin (atorvastatin 10 mg oral tablet)?1?tab(s)?10?Milligram?By Mouth?Daily at bedtime Bumetanide (bumetanide 1 mg oral tablet)?3?Milligram?3?tablet?By Mouth?3 times a day Carvedilol (carvedilol 6.25 mg oral tablet)?6.25?Milligram?1?tablet?By Mouth?2 times a day?for 30?Days Gabapentin (gabapentin 600 mg oral tablet)?2 tablets?By Mouth?2 times a day hydrALAZINE (hydrALAZINE 25 mg oral tablet)?50?Milligram?2?tablet?By Mouth?3 times a day?for 30?Days Insulin Aspart (NovoLOG FlexPen 100 units/mL injectable solution)?PLEASE SEE ATTACHED FOR DETAILED DIRECTIONS Insulin Glargine (Toujeo SoloStar 300 units/mL subcutaneous solution)?6?unit(s)?Subcutaneous Injection?Daily at bedtime Tamsulosin (tamsulosin 0.4 mg oral capsule)?0.4?Milligram?1?capsule?By Mouth?Daily?for 30?Days ? Results Recent Labs BLOOD COUNT & DIFF WBC 8.5 k/mm3 ()?? 01/19/2023 11:15 RBC 2.79 m/mm3 (Low)?? 01/19/2023 11:15 Hgb 8.3 Gm/dL (Low)?? 01/19/2023 11:15 Hct 25.9 % (Low)?? 01/19/2023 11:15 MCV 92.8 femtoliters ()?? 01/19/2023 11:15 MCH 29.7 pg ()?? 01/19/2023 11:15 MCHC 32.0 g/dL (Low)?? 01/19/2023 11:15 Platelet Count 167 k/mm3 ()?? 01/19/2023 11:15 RDW-SD 55.1 femtoliters (High)?? 01/19/2023 11:15 MPV 10.9 femtoliters ()?? 01/19/2023 11:15 Nucleated RBC (Automated) 0.0 #/100 WBC'S ()?? 01/19/2023 11:15 Abs. NRBC 0.0 k/mm3 ()?? 01/19/2023 11:15 Abs. Neut 7.4 k/mm3 (High)?? 01/19/2023 11:15 Abs. Lymph 0.5 k/mm3 (Low)?? 01/19/2023 11:15 Abs. Chilton 0.4 k/mm3 ()?? 01/19/2023 11:15 Abs. Eo 0.1 k/mm3 ()?? 01/19/2023 11:15 Abs. Baso 0.0 k/mm3 ()?? 01/19/2023 11:15 Neut % 86.8 % (High)?? 01/19/2023 11:15 Lymph % 5.9 % (Low)?? 01/19/2023 11:15 Chilton % 5.2 % ()?? 01/19/2023 11:15 Eos % 0.8 % ()?? 01/19/2023 11:15 Baso % 0.2 % ()?? 01/19/2023 11:15 Imm Gran 1.1 % ()?? 01/19/2023 11:15 Abs. Imm Gran 0.1 k/mm3 ()?? 01/19/2023 11:15 ?? CHEM GENERAL Sodium 139 mmol/L ()?? 01/19/2023 11:15 Potassium 4.6 mmol/L ()?? 01/19/2023 11:15 Chloride 104 mmol/L ()?? 01/19/2023 11:15 Bicarbonate Level 17 mmol/L (Low)?? 01/19/2023 11:15 Anion Gap 18 (High)?? 01/19/2023 11:15 Glucose Level 125 mg/dL (High)?? 01/19/2023 11:15 Glucose, POC 119 mg/dL (High)?? 01/19/2023 09:12 BUN 89 mg/dL (High)?? 01/19/2023 11:15 Creatinine-Blood 6.0 mg/dL (High)?? 01/19/2023 11:15 Estimated GFR Creatinine 10 ML/MIN/1.73 M2 ()?? 01/19/2023 11:15 Alkaline Phosphatase 67 units/L ()?? 01/19/2023 11:15 Lipase 21 units/L ()?? 01/19/2023 11:15 ALT (SGPT) 9 units/L ()?? 01/19/2023 11:15 Bilirubin, Total 0.3 mg/dL ()?? 01/19/2023 11:15 ?? ENDOCRINE/TUMOR MARKER TSH 5.02 uIU/mL (High)?? 01/19/2023 11:15 Free T4 1.20 ng/dL ()?? 01/19/2023 11:15 ?? HEME OTHER Hold Blue Top SPECIMEN DISCARDED AFTER 4 HOURS. ()?? 01/19/2023 11:16 ?? MISC. CHEMISTRY Hold Green Top SPECIMEN DISCARDED AFTER 1 WEEK ()?? 01/19/2023 11:16 ?? VIROLOGY COVID-19 by RT-PCR NEGATIVE ()?? 01/19/2023 12:27 ? EKG study * Event Display: ECG 12-Lead Authored Date: Please click on pdf link to open report * Event Display: ECG 12-Lead Authored Date: Ventricular Rate: 95 BPM Atrial Rate: 95 BPM P-R Interval: 200 ms QRS Duration: 84 ms Q-T Interval: 392 ms QTC Calculation(Bazett): 492 ms P Spencer: 50 degrees R Spencer: -21 degrees T Spencer: 38 degrees Normal sinus rhythm Low voltage QRS Nonspecific ST and T wave abnormality Prolonged QT Abnormal ECG When compared with ECG of 14-SEP-2022 09:59, No significant change was found Confirmed by TERESSA WALKER MD ([id number]) on 01/19/2023 10:34:15 AM Rector: [facility] Progress note * Maren Victoria RN: PERFORM, SIGN, VERIFY Event Display: Progress Note Hospital Authored Date: Patient: MOUSTAPHA MEDINA Age: 57 years Sex: Male : 1965 Associated Diagnoses: None Author: Maren Victoria RN Findings Evaluation A+Ox3. VSS. Pt denies SOB, chest pain, N/V/D. Respirations even and steady. IPOC rounds completed on pt today. Pt being discharged home. Discharge teaching done with pt at bedside. All personal belongings taken with pt. IV removed, catheter tip intact, dry dressing applied. Pt left unit via wheelchair . Discharge Information Pulmonary Rehab Discharge : Pulmonary Rehab Discharge Status 01/22/2023 4:35 EDT CPAP/BiPAP Mask Type Full CPAP/BiPAP Mask Size Medium 01/22/2023 0:45 EDT CPAP/BiPAP Mask Type Full CPAP/BiPAP Mask Size Medium 01/21/2023 20:46 EDT CPAP/BiPAP Mask Type Full CPAP/BiPAP Mask Size Medium Rehabilitation Discharge : Rehab Discharge Index 01/22/2023 11:51 EDT Comments on treatment indicated 57 M presenting with difficulty in breathing over 1 month, worsening over the past few days, suggestive of orthopnea, dyspnea on exertion, suggesting fluid overload. Admitted for review and further management per nephrology. Rec home with PT service. Walker: distance 20-50 Distance pt will ambulate 100 Full chart review completed Yes Other findings Pt has many small micro tears in skin, states it is due to picking at the skin. Mod complexity eval d/t multi system involvement Plan of care PT Gait training * Jennifer Wu RN: PERFORM, SIGN, VERIFY Event Display: Progress Note Hospital Authored Date: Patient: MOUSTAPHA MEDINA Age: 57 years Sex: Male : 1965 Associated Diagnoses: None Author: Jennifer Wu RN Findings Narrative/Incidental Received Patient with a Rt Permacath Access for Dialysis with patent ports. Dialysis session lastedfor 4Hours as ordered on a [facility]. A total of 5.8L removed. Critline-12.2% . Patient tolerated treatment. Last Vitals BP-167/78 P- 79. Patient transported back to 3. Due care given. . Discharge Information Pulmonary Rehab Discharge : Pulmonary Rehab Discharge Status 01/22/2023 4:35 EDT CPAP/BiPAP Mask Type Full CPAP/BiPAP Mask Size Medium 01/22/2023 0:45 EDT CPAP/BiPAP Mask Type Full CPAP/BiPAP Mask Size Medium 01/21/2023 20:46 EDT CPAP/BiPAP Mask Type Full CPAP/BiPAP Mask Size Medium Rehabilitation Discharge : Rehab Discharge Index 01/22/2023 11:51 EDT Comments on treatment indicated 57 M presenting with difficulty in breathing over 1 month, worsening over the past few days, suggestive of orthopnea, dyspnea on exertion, suggesting fluid overload. Admitted for review and further management per nephrology. Rec home with PT service. Walker: distance 20-50 Distance pt will ambulate 100 Full chart review completed Yes Other findings Pt has many small micro tears in skin, states it is due to picking at the skin. Mod complexity eval d/t multi system involvement Plan of care PT Gait training * Arian Vega: PERFORM, SIGN, VERIFY Felipe Jennings MD: MODIFY, SIGN Felipe Jennings MD: SIGN Event Display: Progress Note Hospital Authored Date: Patient: MOUSTAPHA MEDINA Age: 57 years Sex: Male : 1965 Associated Diagnoses: None Author: Arian Vega [facility]patient Nephrology Progress Note Interval History No overnight events Seen and examined on HD, no complaints Patient aware that he as an outpatient dialysis spot at [facility] starting Tuesday at 6:30am Plan for discharge today Review of Systems Review of Systems Constitutional: no chills, no fever. Respiratory: dyspnea improved. Cardiovascular: peripheral edema, no chest pain. Gastrointestinal: no abdominal pain, no nausea. Physical Examination Vital Signs Vitals : VITALS 01/22/2023 11:05 EDT Pulse Rate 77 bpm Systolic Blood Pressure 163 mm Hg H Systolic Blood Pressure 163 mm Hg H Systolic Blood Pressure 163 mm Hg H Diastolic Blood Pressure 77 mm Hg Diastolic Blood Pressure 77 mm Hg Diastolic Blood Pressure 77 mm Hg . General Appearance NAD. Respiratory Lungs: CTA. Cardiac Rhythms: RRR. Abdomen/GI Abdomen: soft. Extremities Edema. Neurologic Alert & oriented x 3 . Results Review 7 Day Results Results Laboratory : LABORATORY 01/22/2023 0:07 EDT WBC 6.5 k/mm3 RBC 3.03 m/mm3 L Hgb 8.9 Gm/dL L Hct 27.6 % L MCV 91.1 femtoliters MCH 29.4 pg MCHC 32.2 g/dL L Platelet Count 171 k/mm3 RDW-SD 52.3 femtoliters H MPV 10.9 femtoliters Nucleated RBC (Automated) 0.0 #/100 WBC'S Abs. NRBC 0.0 k/mm3 Sodium 138 mmol/L Potassium 3.5 mmol/L L Chloride 100 mmol/L Bicarbonate Level 24 mmol/L Anion Gap 14 Glucose Level 105 mg/dL H BUN 45 mg/dL H Creatinine-Blood 3.9 mg/dL H Estimated GFR Creatinine 17 ML/MIN/1.73 M2 Calcium 8.2 mg/dL L Impression and Plan Mr. Moustapha Medina is a 57-year-old male with a past medical history of CKD V (recent BL Cr 6.0 mg/dL due to DKD/HTN/incomplete VERONICA recovery), obesity status post gastric sleeve in 2020, left BKA who presented on 01/19 with progressive exertional edema and weight gain. 1. CKD V with Bl Cr 6.0 mg/dL Progressive CKD- had AVF placed 09/28/22 and was hoping to do home hemodialysis (has not completed training yet) Patient exemplified uremic symptoms and fluid overload despite compliance with high dose Bumex AVF unfortunately not yet mature, no bruit or thrill and unable to use for dialysis Permcath placed and patient had first 3 dialysis treatments 01/20-01/22 Plan: - Third treatment of dialysis today (full treatment) then ok for discharge- convert Bumex to 2mg POBID - Patient aware that he has an outpatient dialysis spot at [facility] starting Tuesday at 6:30am - Renal diet 2. HTN / Volume Please discharge patient on amlodipine 10mg daily, Bumex 2mg PO BID, carvedilol 6.25mg BID, and hydralazine 50mg TID. 3. Nephrogenic Anemia Hgb 8.9 (01/21) Tsat 19, Ferritin 221 (01/20) Plan: - Mircera to be dosed outpatient 4. Secondary Hyperparathyroidism / MBD Phos 5.3, iCa 1.10 (01/20) PTH 321 (01/20) Plan: - Continue sevelamer 800mg TID w/ meals Thank you for the courtesy of this consult, RT[facility] will continue monitoring the patient along with you. Please do not hesitate to call us with any further questions Arian Conley PA-C [facility], .. [address] [place] [address], [address] Available by [employer] * Dick CASTRO, Felipe Lacy: PERFORM Event Display: Progress Note Hospital Authored Date: Patient seen and examined . Agree with plan as outlined by Ms.McAtee GARVEY Consult note * Veronica Garibay: PERFORM, SIGN, VERIFY Event Display: Consultation Note Authored Date: Patient: MOUSTAPHA MEDINA Age: 57 years Sex: Male : 1965 Associated Diagnoses: None Author: Veronica Garibay [facility] Inpatient Nephrology Consultation Note Reason for Consult: CKD V History of Present Illness Mr. Moustapha Medina is a 57-year-old male with a past medical history of CKD V (recent BL Cr 6.0 mg/dL due to DKD/HTN/incomplete VERONICA recovery), obesity status post gastric sleeve in 2020, left BKA who presented on 01/19 with progressive exertional edema and weight gain. Of note, patient had vascular surgery create a L RC AVF on 09/28. Patient did not have dedicated follow up to check for maturation of fistula. In the ED, patient hypertensive and on room air. A CXR showed vascular congestion. Labs revealed bicarb of 17 and Cr of 6.0, BUN 89. He was given 20 mg IV Lasix once. On my assessment, patient was in stretcher on room air but had increased work of breathing with anymovement. He states he usually has good urinary response to the Bumex, which he takes twice daily at 3 mg each, but in the past few days feels he is not making as much urine as he normally does. He was hoping to have home hemo and has next follow up in January. He has been very nauseated, unable to tolerated more than one meal per day if that. He has gained a large amount of fluid in his abdomenand scrotum, and everything to him tastes burnt. Review of Systems Constitutional: +Weakness and fatigue. No weight loss, fever, chills HEENT: No visual loss, blurred vision, double vision or yellow sclera. No hearing loss, sneezing, congestion, runny nose or sore throat. Skin: No rash or itching. Cardiovascular: No chest pain, chest pressure or chest discomfort. No palpitations or pedal edema. Respiratory: No shortness of breath, cough or sputum production. Gastrointestinal: + Nausea and loss of appetite. No abdominal pain or blood in stool. [...] Open wound of foot, complicated Severe obesity Medications: Allopurinol 100 Milligram By Mouth Daily Amlodipine (amLODIPine 10 mg oral tablet) 1 tab(s) 10 Milligram By Mouth Daily Atorvastatin (atorvastatin 10 mg oral tablet) 1 tab(s) 10 Milligram By Mouth Daily at bedtime Bumetanide (bumetanide 1 mg oral tablet) 3 Milligram 3 tablet By Mouth 3 times a day Carvedilol (carvedilol 6.25 mg oral tablet) 6.25 Milligram 1 tablet By Mouth 2 times a day for 30 Days Gabapentin (gabapentin 600 mg oral tablet) 2 tablets By Mouth 2 times a day hydrALAZINE (hydrALAZINE 25 mg oral tablet) 50 Milligram 2 tablet By Mouth 3 times a day for 30 Days Insulin Aspart (NovoLOG FlexPen 100 units/mL injectable solution) PLEASE SEE ATTACHED FOR DETAILED DIRECTIONS Insulin Glargine (Toujeo SoloStar 300 units/mL subcutaneous solution) 6 unit(s) Subcutaneous Injection Daily at bedtime Tamsulosin (tamsulosin 0.4 mg oral capsule) 0.4 Milligram 1 capsule By Mouth Daily for 30 Days Social History: Alcohol Details: Use: Never. Tobacco Details: Never smoker, Tobacco user in household: No. Family History: No family history recorded. Physical Examination Temperature 97.5 (09:16) Systolic Blood Pressure 165 (12:26) Diastolic Blood Pressure 81 (12:26) Pulse 96 (12:26) SpO2 95 (12:26) Respiratory Rate 26 (12:26) General: No acute distress HEENT: EOMI, mucous membranes moist CV: Regular rate and rhythm. Respiratory: Bibasilar crackles, Observed exertional dyspnea Abdominal: Soft, nontender. Bowel sounds noted Extremities: RLE 2+ edema, LLE BKA. LUE AVF WITHOUT bruit and thrill Neuro: AAO x3. Results Review General results Today's results 01/19/2023 11:15 EDT WBC 8.5 k/mm3 RBC 2.79 m/mm3 L Hgb 8.3 Gm/dL L Hct 25.9 % L MCV 92.8 femtoliters MCH 29.7 pg MCHC 32.0 g/dL L Platelet Count 167 k/mm3 RDW-SD 55.1 femtoliters H MPV 10.9 femtoliters Nucleated RBC (Automated) 0.0 #/100 WBC'S Abs. NRBC 0.0 k/mm3 Abs. Neut 7.4 k/mm3 H Abs. Lymph 0.5 k/mm3 L Abs. Chilton 0.4 k/mm3 Abs. Eo 0.1 k/mm3 Abs. Baso 0.0 k/mm3 Neut % 86.8 % H Lymph % 5.9 % L Chilton % 5.2 % Eos % 0.8 % Baso % 0.2 % Imm Gran 1.1 % Abs. Imm Gran 0.1 k/mm3 Sodium 139 mmol/L Potassium 4.6 mmol/L Chloride 104 mmol/L Bicarbonate Level 17 mmol/L L Anion Gap 18 H Glucose Level 125 mg/dL H BUN 89 mg/dL H Creatinine-Blood 6.0 mg/dL H Estimated GFR Creatinine 10 ML/MIN/1.73 M2 Alkaline Phosphatase 67 units/L Lipase 21 units/L ALT (SGPT) 9 units/L Bilirubin, Total 0.3 mg/dL TSH 5.02 uIU/mL H Free T4 1.20 ng/dL Impression and Plan Mr. Moustapha Medina is a 57-year-old male with a past medical history of CKD V (recent BL Cr 6.0 mg/dL due to DKD/HTN/incomplete VERONICA recovery), obesity status post gastric sleeve in 2020, left BKA who presented on 01/19 with progressive exertional edema and weight gain. 1. 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 HTN Continue with amlodipine 10 mg daily, carvedilol 6.25 mg BID, and hydralazine 50 mg TID 3. Metabolic acidosis Due to CKD Will be corrected on HD Thank you for the courtesy of this consult, RTANE will continue monitoring the patient along with you. Please do not hesitate to call us with any further questions Veronica Donovan PA-C [facility] [address] [place] [address], [address] Available by [facility] Note * Maren Victoria RN: PERFORM Event Display: Discharge/Transfer Note Hospital Authored Date: [id number] Nursing Discharge Note Entered On: 01/22/2023 15:06 EDT Performed On: 01/22/2023 15:05 EDT by Maren Victoria RN Nursing Discharge Note 2 Discharge Time : 01/22/2023 15:06 EDT Discharge Level of Care at Discharge : Home/Prison/Foster Care Patient Left Unit Via : Wheelchair Patient Accompanied Off Unit with : Responsible adult DC Instructions Provided & Signed by Pt : Yes Patient Understands D/C Instructions : Yes Patient Instructions Discharge Signed : Yes Did Pt have Specialty Bed or Wound Vac : Anh Victoria RN, Maren - 01/22/2023 15:05 EDT * Thad VANN, Cherie Billy: PERFORM Event Display: Discharge/Transfer Note Hospital Authored Date: [id number] Patient: ??MOUSTAPHA MEDINA ? Age:??57 Years?Sex:??Male?:??1965?? Patient Information Discharge Location: W3 Primary Care Physician: Sebastian CASTRO , Shereen Banerjee Admit Date/Time: 01/19/23 13:32 Discharge Disposition Discharge Disposition: Home: No Services Discharge Diagnosis Fluid overload (E87.70) CKD (chronic kidney disease), stage V (N18.5) Metabolic acidosis, increased anion gap (E87.29) Uncontrolled hypertension (I10) Obesity, morbid (E66.01) Diabetes mellitus type 2 in obese (E11.69) BPH (benign prostatic hyperplasia) (N40.0) Hyperlipidemia (E78.5) ?? _ Discharge Medications Allopurinol?100?Milligram?By Mouth?Daily Amlodipine (amLODIPine 10 mg oral tablet)?1?tab(s)?10?Milligram?By Mouth?Daily Atorvastatin (atorvastatin 10 mg oral tablet)?1?tab(s)?10?Milligram?By Mouth?Daily at bedtime Bumetanide (bumetanide 2 mg oral tablet)?1?tab(s)?2?Milligram?By Mouth?2 times a day?for 30?Days Carvedilol (carvedilol 6.25 mg oral tablet)?6.25?Milligram?1?tablet?By Mouth?2 times a day?for 30?Days Gabapentin (gabapentin 600 mg oral tablet)?2 tablets?By Mouth?2 times a day hydrALAZINE (hydrALAZINE 25 mg oral tablet)?50?Milligram?2?tablet?By Mouth?3 times a day?for 30?Days Insulin Aspart (NovoLOG FlexPen 100 units/mL injectable solution)?PLEASE SEE ATTACHED FOR DETAILED DIRECTIONS Insulin Glargine (Toujeo SoloStar 300 units/mL subcutaneous solution)?6?unit(s)?Subcutaneous Injection?Daily at bedtime Sevelamer (sevelamer carbonate 800 mg oral tablet)?800?Milligram?By Mouth?3 times a daywith meals?for 30?Days Tamsulosin (tamsulosin 0.4 mg oral capsule)?0.4?Milligram?1?capsule?By Mouth?Daily?for 30?Days ? Medications Started Sevelamer (sevelamer carbonate 800 mg oral tablet)?800?Milligram?By Mouth?3 times a daywith meals?for 30?Days Medications Discontinued Bumetanide (bumetanide 1 mg oral tablet)?3?Milligram?3?tablet?By Mouth?3 times a day Doses Changed Bumetanide (bumetanide 2 mg oral tablet)?1?tab(s)?2?Milligram?By Mouth?2 times a day?for 30?Days Allergies Allergies ?(Active and Proposed Allergies Only) Keflex? (Severity: Unknown severity, Onset: Unknown) ?Reactions: muscles locked up, could not move metFORMIN? (Severity: Unknown severity, Onset: Unknown) ?Reactions: GI upset ?Comments: nausea/vomiting ? Hospital Course Chief Complaint/Reason for Consultation SOB since few days,patient has ESRD and had his fistula left wrist for dialysis,no dialysis startedyet, crackles lower lung bilaterally,HTN on scene History of Present Illness per admitting hospitalist 01/19/23 57 year-old male with??PMH of??CKD stage IV-V,??diabetes mellitus type II, insulin-dependent,??hypertension,??multinodular??goiter,??BPH,??peripheral vascular disease status post??left??BKA ,??obesity status post gastric sleeve in 2020,?inflatable penile prosthesis (07/2022)?? is presenting with??difficulty??in breathing over 1 month,??worsening over the past few days, suggestive of??orthopnea,??dyspnea on exertion,??suggesting ??fluid overload.??Admitted for review and further management per nephrology. ?? Denies any??complaints of chest pressure,??chest pain/heaviness/tightness??or nausea vomiting,??continues to have worsening bilateral leg swelling,? Chest x-ray???pulmonary vascular congestion with small left pleural effusion EKG???NSR,??nonspecific ST-T abnormalities Blood pressure???161/85, mild tachycardia, Labs notable for??normal electrolytes,??mild??anion gap metabolic acidosis,??BUN/creatinine??89/6.0,??which is close to his??last baseline??at the time of??discharge??in 08/2022,??elevated TSH, however normal free T4 Last echocardiogram??07/2022???EF of??60 to 65%,??no wall motion??or significant valvular abnormalities Patient mentions that??he has??not been taking his carvedilol over the past week,??as he ran out ofit??and had trouble refilling it??from his primary care provider. Reconciled medications, Patient has been??admitted??at [facility]??in November,??for his right fourth toe amputation??sincehis last discharge from here in August??for similar complaints??of fluid overload and worsening renal function??and later??with vascular surgery in September, for creation of left radial??cephalic??fistula. During his recent admission??to the [facility],??he was started??on??IV vancomycin, whichhe??finished couple weeks ago, and has??VNA??to care for the??amputation site, which has been healing well. ?? Patient was noted to be??significantly fluid overloaded??at bedside, with??mild orthopnea,??although O2 sats in high 90s on??2 L via nasal cannula Nephrology team at bedside to see patient,??plan on starting IV Bumex and??plan for??permacath and hemodialysis tomorrow. Denies any significant chest pain, nausea vomiting,??abdominal discomfort or pain, has been having some chills , but no fevers. Objective Assessment and Plan 57 year-old male with PMH of CKD stage IV-V, diabetes mellitus type II, insulin- dependent, hypertension, multinodular goiter, BPH, peripheral vascular disease status post left BKA , obesity status post gastric sleeve in 2020, inflatable penile prosthesis (07/2022) is presenting with difficulty in breathing over 1 month, worsening over the past few days, suggestive of orthopnea, dyspnea on exertion, suggesting fluid overload. Admitted for review and further management per nephrology. ?? CKD V Pulmonary edema Patient with known CKD stage V,??with worsening??fluid status??over the past month, with??acute worsening over the past few days Last echocardiogram??07/2022???EF of??60 to 65%,??no wall motion??or significant valvular abnormalities, currently no??signs symptoms of??cardiac ischemia, EKG with no acute changes had AVF placed 09/28/22 and was hoping to do home hemodialysis (has not completed training yet) Patient exemplified uremic symptoms and fluid overload despite compliance with high dose Bumex?? AVF unfortunately not yet mature, no bruit or thrill and unable to use for dialysis Permcath placed and patient had first 3 dialysis treatments 01/20-01/22 - Patient aware that he has an outpatient dialysis spot at [facility] starting Tuesday at 6:30am - Renal diet ?? Uncontrolled hypertension Suboptimal control blood pressure, patient has been out of his carvedilol??for the past??week - continue with amlodipine 10mg daily, Bumex 2mg PO BID, carvedilol 6.25mg BID, and hydralazine 50mg TID. - new prescription for carvedilol?? and Bumex sent to pharmacy of choice - OP PCP FU ?? Peripheral vascular?? disease s/p Left BKA s/p Rt 4th toe amp?? has been ambulatory at home,??right??fourth toe amputation site??healing well (done recently at [facility] in November) No current complaints ?? Sleep apnea: Patient has history of sleep apnea with previous sleep study??done. ??Patient not ableto get CPAP at home. ??Last sleep study 2005 will need new sleep study defer to PCP for follow up and referral ?? Diabetes mellitus type 2 in obese (E11.69):??home insulin regimen Obesity, morbid (E66.01):??BMI more than 40, dietary and lifestyle modifications BPH (benign prostatic hyperplasia) (N40.0):??Continue tamsulosin Hyperlipidemia (E78.5):??Lipitor 10 mg nightly ?? Vital Signs?? Temperature: 97.7 DegF (01/22/23 00:28:00) Temperature Route: Oral (01/22/23 00:28:00) Pulse Rate: 77 bpm (01/22/23 11:05:00) Respiratory Rate: 18 br/min (01/22/23 00:28:00) Systolic Blood Pressure:??163 mm Hg??High (01/22/23 11:05:00) Systolic Blood Pressure:??163 mm Hg??High (01/22/23 11:05:00) Systolic Blood Pressure:??163 mm Hg??High (01/22/23 11:05:00) Diastolic Blood Pressure: 77 mm Hg (01/22/23 11:05:00) Diastolic Blood Pressure: 77 mm Hg (01/22/23 11:05:00) Diastolic Blood Pressure: 77 mm Hg (01/22/23 11:05:00) Blood pressure sites: Arm, right (01/22/23 00:28:00) Mean Arterial Pressure: 95 mm Hg (01/22/23 00:28:00) Pulse Pressure: 78 mm Hg (01/22/23 00:28:00) Oxygen Saturation:??92 %??Low (01/22/23 00:28:00) Mode of Delivery (Oxygen): CPAP (01/22/23 00:28:00) FiO2: 21 % (01/22/23 04:35:00) Early Warning Score: 4 (01/22/23 11:49:52) ? . Physical Exam General: Speaking in full sentences and in no apparent distress HEENT: Normocephalic and atraumatic. Rt chest Permcath Eyes: EOM, no drainage, no redness Ears: Symmetrical, no drainage Nose: Nares patent, no drainage Neck: Soft and supple, trachea midline Resp: CTA, no wheezes, no rales Cardiac: RRR, no m/g/r,?? Abdomen/ GI: soft nontender, active bowel sounds all 4 quadrants. Extremities: No edema. left BKA Neurologic: alert and oriented?3. Speech is fluent. No facial droop. Intact cranial nerves II-XII; Muscle strength 5/5 in all extremities. Intact gross sensation Psychiatric: Appropriate affect and mood. Able to engage in conversation appropriately Skin: warm pale and dry?? Consultants RTANE Patient Education Titles Chronic Kidney Disease (CKD)?? Caring for Your Hemodialysis Access?? Hemodialysis?? Follow-Up Appointments Added Follow Up ?Time Frame ?Comments Sebastian CASTRO , Shereen Banerjee?1-2 day: call to discuss follow up visit?post hospital follow up: HTN, sleep study for re-eval cpap use Patient Instructions Please call your pcp with any concerns, please return to the emergency room if your symptoms return, persist, or worsen ?? Return to the emergency room if you are unable to eat or drink, you have chest pain or difficulty breathing, you notice blood in your vomit or stool. ?? Contact your primary care doctor in 1-2??days to discuss a follow-up appointment. ?? Continue to take your home medications as prescribed. ?? Post Discharge [facility] Results Discharge Labs BLOOD COUNT & DIFF WBC 6.5 k/mm3 ()?? 01/22/2023 00:07 RBC 3.03 m/mm3 (Low)?? 01/22/2023 00:07 Hgb 8.9 Gm/dL (Low)?? 01/22/2023 00:07 Hct 27.6 % (Low)?? 01/22/2023 00:07 MCV 91.1 femtoliters ()?? 01/22/2023 00:07 MCH 29.4 pg ()?? 01/22/2023 00:07 MCHC 32.2 g/dL (Low)?? 01/22/2023 00:07 Platelet Count 171 k/mm3 ()?? 01/22/2023 00:07 RDW-SD 52.3 femtoliters (High)?? 01/22/2023 00:07 MPV 10.9 femtoliters ()?? 01/22/2023 00:07 Nucleated RBC (Automated) 0.0 #/100 WBC'S ()?? 01/22/2023 00:07 Abs. NRBC 0.0 k/mm3 ()?? 01/22/2023 00:07 Abs. Neut 7.4 k/mm3 (High)?? 01/19/2023 11:15 Abs. Lymph 0.5 k/mm3 (Low)?? 01/19/2023 11:15 Abs. Chilton 0.4 k/mm3 ()?? 01/19/2023 11:15 Abs. Eo 0.1 k/mm3 ()?? 01/19/2023 11:15 Abs. Baso 0.0 k/mm3 ()?? 01/19/2023 11:15 Neut % 86.8 % (High)?? 01/19/2023 11:15 Lymph % 5.9 % (Low)?? 01/19/2023 11:15 Chilton % 5.2 % ()?? 01/19/2023 11:15 Eos % 0.8 % ()?? 01/19/2023 11:15 Baso % 0.2 % ()?? 01/19/2023 11:15 Imm Gran 1.1 % ()?? 01/19/2023 11:15 Abs. Imm Gran 0.1 k/mm3 ()?? 01/19/2023 11:15 ?? CHEM GENERAL Sodium 138 mmol/L ()?? 01/22/2023 00:07 Potassium 3.5 mmol/L (Low)?? 01/22/2023 00:07 Chloride 100 mmol/L ()?? 01/22/2023 00:07 Bicarbonate Level 24 mmol/L ()?? 01/22/2023 00:07 Anion Gap 14 ()?? 01/22/2023 00:07 Glucose Level 105 mg/dL (High)?? 01/22/2023 00:07 Glucose, POC 119 mg/dL (High)?? 01/22/2023 11:31 BUN 45 mg/dL (High)?? 01/22/2023 00:07 Creatinine-Blood 3.9 mg/dL (High)?? 01/22/2023 00:07 Estimated GFR Creatinine 17 ML/MIN/1.73 M2 ()?? 01/22/2023 00:07 Calcium 8.2 mg/dL (Low)?? 01/22/2023 00:07 Calcium, Ionized pH Corrected 1.10 mmol/L (Low)?? 01/20/2023 00:07 Phosphorus 5.3 mg/dL (High)?? 01/20/2023 00:07 Magnesium 2.2 mg/dL ()?? 01/21/2023 01:40 Alkaline Phosphatase 67 units/L ()?? 01/19/2023 11:15 Lipase 21 units/L ()?? 01/19/2023 11:15 ALT (SGPT) 9 units/L ()?? 01/19/2023 11:15 Bilirubin, Total 0.3 mg/dL ()?? 01/19/2023 11:15 Iron Level 34 mcg/dL (Low)?? 01/20/2023 00:07 Iron Binding Capacity, Unsaturated 147 mcg/dL ()?? 01/20/2023 00:07 Iron Binding Capacity, Estimated Total 181 mcg/dL ()?? 01/20/2023 00:07 % Iron Saturation 19 % (Low)?? 01/20/2023 00:07 Ferritin Level 221 ng/mL ()?? 01/20/2023 00:07 ? COAG INR 1.2 (High)?? 01/20/2023 00:07 Protime (PT) 12.5 seconds (High)?? 01/20/2023 00:07 ?? ENDOCRINE/TUMOR MARKER TSH 5.02 uIU/mL (High)?? 01/19/2023 11:15 Free T4 1.20 ng/dL ()?? 01/19/2023 11:15 PTH, Intact 321 pg/mL (High)?? 01/20/2023 00:07 ? HEME OTHER Hold Blue Top SPECIMEN DISCARDED AFTER 4 HOURS. ()?? 01/19/2023 11:16 ? MISC. CHEMISTRY 25 OH-Vitamin D Level 34.3 ng/mL ()?? 01/20/2023 00:07 Hold Green Top SPECIMEN DISCARDED AFTER 1 WEEK ()?? 01/19/2023 11:16 ?? SEROLOGY INF DISEASE Hepatitis B Surface Antigen NEGATIVE (N)?? 01/20/2023 00:07 Hepatitis C Ab NEGATIVE (N)?? 01/20/2023 00:07 Anti-HBS Quant .06 mIU/mL ()?? 01/20/2023 00:07 ? UA/URINALYSIS Appear/Color, Urine LIGHT YELLOW ()?? 01/20/2023 04:50 Specific Reader, Urine 1.011 ()?? 01/20/2023 04:50 pH, Urine 6.0 ()?? 01/20/2023 04:50 Albumin, Urine 3+ (Abnormal)?? 01/20/2023 04:50 Glucose, Urine TRACE (Abnormal)?? 01/20/2023 04:50 Ketones, Urine NEGATIVE ()?? 01/20/2023 04:50 Bilirubin, Urine NEGATIVE ()?? 01/20/2023 04:50 Hemoglobin, Urine NEGATIVE ()?? 01/20/2023 04:50 Nitrite, Urine NEGATIVE ()?? 01/20/2023 04:50 Leukocyte, Urine NEGATIVE ()?? 01/20/2023 04:50 Urobilinogen NORMAL mg/dL ()?? 01/20/2023 04:50 WBC's, Urine <1 /HPF ()?? 01/20/2023 04:50 RBC's, Urine 2 /HPF ()?? 01/20/2023 04:50 Amorphous Crystals SLIGHT /HPF ()?? 01/20/2023 04:50 Hold Urine Culture Testing available 48 hours from time of collection. ()?? 01/20/2023 04:50 ? URINE OTHER Est Creatinine Clearance 20.78 mL/min ()?? 01/22/2023 02:13 ? VIROLOGY COVID-19 by RT-PCR NEGATIVE ()?? 01/19/2023 12:27 ? 35 minutes spent on discharge * Maren Victoria RN: PERFORM Event Display: Patient Education/Instruction Authored Date: [id number] Inpatient Adult Discharge Instructions [place] [id number] Name: MOUSTAPHA MEDINA : 1965 Visit: 01/19/2023 13:32:00 Current Date: 01/22/2023 12:41 Account: [id number] Inpatient Adult Discharge Instructions We would like to thank you for allowing us to assist you with your healthcare needs. The following includes patient education materials and information regarding your injury/illness. Our entire staffstrives to provide an excellent experience for our patients and their families. PLEASE ENSURE YOU FOLLOW-UP PER THE INSTRUCTIONS BELOW! ?? YOUR OPINION IS IMPORTANT TO US! Please complete the survey you may receive by mail or email. Your feedback will be used to make improvements to the healthcare experiences of our patients and their families. Surveys are administered by [employer] ?? If further treatment with your primary care physician or another doctor is recommended, it is important for you to keep the appointment. Call your primary care physician or return to the Emergency Department immediately if your condition worsens, fails to improve, or new symptoms develop. If you need to find a doctor, you can call [facility] for a referral at [phone] or toll free at [phone] or log in to [email or web address].. ?? You can view and manage your care through the patient portal or by using a health care lazarus of your choosing. [employer] is a website that allows you to securely view your medical information including your hospital discharge summary, office visit summaries, medications and follow-up visits. You can also request appointments, renew medications, and request access to your medical information using a health care lazarus of your choosing, or just ask a question. You can enroll at [email or web address] or register during your next office visit. You have been discharged from [facility], Patient Care Unit: W3. If you have any questions regarding these instructions after you leave, please call us and we will be happy to assist you. [facility] Your Care Team Attending Physician Donal CASTRO, Emily Consulting Providers Spencer CASTRO, Gualberto Mancia MD, Catalino Ortiz Discharging Providers Thad VANN, Cherie Billy Reason for Admission SOB since few days,patient has ESRD and had his fistula left wrist for dialysis,no dialysis startedyet, crackles lower lung bilaterally,HTN on scene 202/100 Your Diagnosis Fluid overload Uncontrolled hypertension CKD (chronic kidney disease), stage V Obesity, morbid Metabolic acidosis, increased anion gap Diabetes mellitus type 2 in obese BPH (benign prostatic hyperplasia) Hyperlipidemia Tests Performed Below is a partial list of the tests performed during your hospitalization. You may have had other tests and procedures not included in this list. Please discuss all test results with your provider. 25 OH Vitamin D Level Alk Phos ALT Basic Metabolic Panel BUN CBC CBC w/ Differential COVID-19 (Novel Coronavirus), Rapid PCR Creatinine Electrolytes Ferritin FREE T4 Glucose Level GLUCOSE POC Hepatitis Panel Dial HOLD BLUE TUBE HOLD GREEN TUBE INR Ionized Calcium Iron + Iron Binding Capacity Lipase Mg Level Phosphorus Level PTH Intact Total Bilirubin TSH with T4 Reflex (Adults Only) Urinalysis w/hold for Urine Culture IR Generic Order XR Chest 2 Views Frontal and Lat Primary Care Provider Shereen Cortes MD Advance Directive Health Care Proxy on File Yes - Health Care Proxy Discharge Vitals Temperature: 97.7 DegF Height: 173 cm Pulse Rate: 77 bpm Weight: 129.6 kg Respiratory Rate: 18 br/min Body Mass Index:??44.34 kg/m2??Critical Systolic Blood Pressure:??153 mm Hg??High Body surface area: 2.53 Diastolic Blood Pressure: 75 mm Hg ?? Oxygen Saturation:??92 %??Low ?? Studies Pending All tests and labs ordered during this hospital stay have been completed unless listed below. Please discuss all pending results with your provider listed above in these instructions. ?? Add On Lab Order Basic Metabolic Panel Iron + Iron Binding Capacity (IRON & TIBC) What to do next Instructions From Your Doctor Please call your pcp with any concerns, please return to the emergency room if your symptoms return, persist, or worsen ?? Return to the emergency room if you are unable to eat or drink, you have chest pain or difficulty breathing, you notice blood in your vomit or stool. ?? Contact your primary care doctor in 1-2??days to discuss a follow-up appointment. ?? Continue to take your home medications as prescribed. ?? Discharge Orders You Need to Schedule the Following Appointments Follow Up with??Shereen Cortes MD When:??Within 1-2 day: call to discuss follow up visit Why: post hospital follow up: HTN, sleep study for re-eval cpap use Where: [address] [place] [address]- Discharge Medications MOUSTAPHA MEDINA :1965 Visit Date:01/19/2023 Medications: Please continue your medications until treatment is completed or stopped by your provider. Medications not listed below should be discontinued. Discuss any questions related to medications with your provider. What How Much When Instructions Next Dose Changed Bumetanide (bumetanide 2 mg oral tablet) 1 tab(s) Oral Twice a day Duration: 30 Days Pickup at [facility]/pharmacy #[id number] As prescribed Changed Sevelamer (sevelamer carbonate 800 mg oral tablet) 800 Milligram Oral 3 times a day with meals Duration: 30 Days Pickup at [facility]/pharmacy #2339 With meals Unchanged Allopurinol 100 Milligram Oral Daily Tomorrow Morning Unchanged Amlodipine (amLODIPine 10 mg oral tablet) 1 tab(s) Oral Daily Tomorrow Morning Unchanged Atorvastatin (atorvastatin 10 mg oral tablet) 1 tab(s) Oral Daily at Bedtime Tonight at bedtime Unchanged Carvedilol (carvedilol 6.25 mg oral tablet) 1 tab(s) Oral Twice a day Duration: 30 Days Pickup at [facility]/pharmacy #2339 Tonight at 9pm Unchanged Gabapentin (gabapentin 600 mg oral tablet) 2 tablets Oral Twice a day Tonight at 9pm Unchanged hydrALAZINE (hydrALAZINE 25 mg oral tablet) 2 tab(s) Oral 3 times a day Duration: 30 Days Today at 3pm Unchanged Insulin Aspart (NovoLOG FlexPen 100 units/ mL injectable solution) PLEASE SEE ATTACHED FOR DETAILED DIRECTIONS ?? Unchanged Insulin Glargine (Toujeo SoloStar 300 units/ mL subcutaneous solution) 6 unit(s) Subcutaneous Injection Daily at Bedtime Tonight at bedtime Unchanged Tamsulosin (tamsulosin 0.4 mg oral capsule) 1 capsule Oral Daily Duration: 30 Days Tomorrow Morning Pharmacy Information [facility]/pharmacy #2339: [address] [place] [phone] ?? What How Much When Comments Stop Taking Clonidine (cloNIDine 0.2 mg/ 24 hr transdermal film, extended release) 1 patch(es) Topically Every week Duration: 28 Days Test Results Below is a partial list of the most recent Laboratory test results done prior to this discharge. You may have had other tests and procedures not included in this list. Please discuss all test resultswith your provider. Est Creatinine Clearance - 20.78 mL/min (01/22/2023) 25 OH Vitamin D Level (01/20/2023) ???25 OH-Vitamin D Level - 34.3 ng/mL Alk Phos (01/19/2023) ???Alkaline Phosphatase - 67 units/L ALT (01/19/2023) ???ALT (SGPT) - 9 units/L Basic Metabolic Panel (01/22/2023) ???Sodium - 138 mmol/L???Potassium - 3.5 mmol/L???Chloride - 100 mmol/L???Bicarbonate Level - 24 mmol/L???Anion Gap - 14???Glucose Level - 105 mg/dL???BUN - 45 mg/dL???Creatinine-Blood - 3.9 mg/dL???Estimated GFR Creatinine - 17 ML/MIN/1.73 M2???Calcium - 8.2 mg/dL BUN (01/19/2023) ???BUN - 89 mg/dL CBC (01/22/2023) ???WBC - 6.5 k/mm3???RBC - 3.03 m/mm3???Hgb - 8.9 Gm/dL???Hct - 27.6 %???MCV - 91.1 femtoliters???MCH - 29.4 pg???MCHC - 32.2 g/dL???Platelet Count - 171 k/mm3???RDW-SD - 52.3 femtoliters???MPV - 10.9 femtoliters???Nucleated RBC (Automated) - 0.0 #/100 WBC'S???Abs. NRBC - 0.0 k/mm3 CBC w/ Differential (01/19/2023) ???WBC - 8.5 k/mm3???RBC - 2.79 m/mm3???Hgb - 8.3 Gm/dL???Hct - 25.9 %???MCV - 92.8 femtoliters???MCH - 29.7 pg???MCHC - 32.0 g/dL???Platelet Count - 167 k/mm3???RDW-SD - 55.1 femtoliters???MPV - 10.9 femtoliters???Nucleated RBC (Automated) - 0.0 #/100 WBC'S???Abs. NRBC - 0.0 k/mm3???Abs. Neut - 7.4 k/mm3???Abs. Lymph - 0.5 k/mm3???Abs. [place] - 0.4 k/mm3???Abs. Eo - 0.1 k/mm3???Abs. Baso - 0.0 k/mm3???Neut % - 86.8 %???Lymph % - 5.9 %???[place] % - 5.2 %???Eos % - 0.8 %???Baso % - 0.2 %???Imm Gran - 1.1 %???Abs. Imm Gran - 0.1 k/mm3 COVID-19 (Novel Coronavirus), Rapid PCR (01/19/2023) ???COVID-19 by RT-PCR - NEGATIVE Creatinine (01/19/2023) ???Creatinine-Blood - 6.0 mg/dL???Estimated GFR Creatinine - 10 ML/MIN/1.73 M2 Electrolytes (01/19/2023) ???Sodium - 139 mmol/L???Potassium - 4.6 mmol/L???Chloride - 104 mmol/L???Bicarbonate Level - 17 mmol/L???Anion Gap - 18 Ferritin (01/20/2023) ???Ferritin Level - 221 ng/mL FREE T4 (01/19/2023) ???Free T4 - 1.20 ng/dL Glucose Level (01/19/2023) ???Glucose Level - 125 mg/dL GLUCOSE POC (01/22/2023) ???Glucose, POC - 119 mg/dL Hepatitis Panel Dial (01/20/2023) ???Hepatitis B Surface Antigen - NEGATIVE???Hepatitis C Ab - NEGATIVE???Anti-HBS Quant - 0.06 mIU/mL HOLD BLUE TUBE (01/19/2023) ???Hold Blue Top - SPECIMEN DISCARDED AFTER 4 HOURS. HOLD GREEN TUBE (01/19/2023) ???Hold Green Top - SPECIMEN DISCARDED AFTER 1 WEEK INR (01/20/2023) ???INR - 1.2???Protime (PT) - 12.5 seconds Ionized Calcium (01/20/2023) ???Calcium, Ionized pH Corrected - 1.10 mmol/L Iron + Iron Binding Capacity (01/20/2023) ???Iron Level - 34 mcg/dL???Iron Binding Capacity, Unsaturated - 147 mcg/dL???Iron Binding Capacity, Estimated Total - 181 mcg/dL???% Iron Saturation - 19 % Lipase (01/19/2023) ???Lipase - 21 units/L Mg Level (01/21/2023) ???Magnesium - 2.2 mg/dL Phosphorus Level (01/20/2023) ???Phosphorus - 5.3 mg/dL PTH Intact (01/20/2023) ???PTH, Intact - 321 pg/mL Total Bilirubin (01/19/2023) ???Bilirubin, Total - 0.3 mg/dL TSH with T4 Reflex (Adults Only) (01/19/2023) ???TSH - 5.02 uIU/mL Urinalysis w/hold for Urine Culture (01/20/2023) ???Appear/Color, Urine - LIGHT YELLOW???Specific Reader, Urine - 1.011???pH, Urine - 6.0???Albumin, Urine - 3+???Glucose, Urine - TRACE???Ketones, Urine - NEGATIVE???Bilirubin, Urine - NEGATIVE???Hemoglobin, Urine - NEGATIVE???Nitrite, Urine - NEGATIVE???Leukocyte, Urine - NEGATIVE???Urobilinogen - NORMAL? ?WBC's, Urine - <1 /HPF? ?RBC's, Urine - 2 /HPF? ?Amorphous Crystals - SLIGHT? ?Hold Urine Culture - Testing available 48 hours from time of collection. Allergies (NKA means No Known Allergies) Keflex??(muscles locked up, could not move) metFORMIN??(GI upset) Problems Active Problems??(6) Chronic kidney disease (CKD), stage III (moderate)?? Diabetes?? Hypertension?? Multinodular goiter?? Open wound of foot, complicated?? Severe obesity?? Education Materials Below is the list of Educational Leaflet Providered with your Discharge Instructions. Chronic Kidney Disease (CKD)?? Caring for Your Hemodialysis Access?? Hemodialysis?? Valuables and Belongings I fully understand and agree that [facility] accepts no responsibility for all my personal property including clothing, toilet articles, radios, jewelry, dentures, hearing aids, rings, money, or any other property that is in my possession or is brought to me after admission. I understand certain valuables may be placed in a hospital safe for a short period of time. I understand that the hospital is not liable for loss or damage due to accident, fire, or other natural occurrence while said property is in the safe. I accept full responsibility for any personal property that I keep with me, and will not hold the hospital responsible in case of loss or disappearance. I acknowledge that i have been encouraged to send valuables and belongings home. ?? Review of Valuable and Belonging List: With patient Date for Pt to Sign Valuables/Belongings: 01/19/23 17:56:00 ?? Other Discharge Information ? Pulmonary Rehab Status?? Pulmonary Rehab Discharge Status?? CPAP/BiPAP Mask Type: Full CPAP/BiPAP Mask Size: Medium Respiratory Rate: 18 br/min ? Common Emergency Awareness Tips IS IT A STROKE? Act FAST and Check for these signs: FACE Does the face look uneven? ARM Does one arm drift down? SPEECH Does their speech sound strange? TIME Call at any sign of stroke ?? Heart Attack Signs Chest discomfort: Most heart attacks involve discomfort in the center of the chest and lasts more than a few minutes, or goes away and comes back. It can feel like uncomfortable pressure, squeezing, fullness or pain. Discomfort in upper body: Symptoms can include pain or discomfort in one or both arms, back, neck, jaw or stomach. Shortness of breath: With or without discomfort. Other signs: Breaking out in a cold sweat, nausea, or lightheaded. Remember, MINUTES DO MATTER. If you experience any of these heart attack warning signs, call to get immediate medical attention! ?? Smoking can increase your chances of developing chronic health problems and can cause harmful effects to other family members in your house. If you smoke, you are strongly encouraged to quit. Please call [facility] at [phone] or [phone] [phone]) or log in to [email or web address] for referrals to smoking cessation programs. ?? 129 Suicide & Crisis Lifeline is available 17/01 if you or someone you know needs to find a reason to keep living. By calling 155 you'll be connected to a skilled, trained counselor at a crisis center in your area. INPATIENT DISCHARGE INSTRUCTIONS SIGNATURE PAGE MOUSTAPHA MEDINA Location:[facility] Registration Date and Time:01/19/2023 13:32 EDT Primary Care Physician: Sebastian CASTRO , Shereen Banerjee, Attending Physician: Emily Mansfield MD, I MOUSTAPHA MEDINA, have received the above patient education materials/instructions and have verbalized understanding. If ambulance or transport services are being used I further acknowledge being given a choice of service. ?? If you need to contact me, please call me at this number: . Patient/Philosophy And Religion Instructor Name: Patient/Philosophy And Religion Instructor Signature: Relationship to Patient: Witness Name/Signature: Date: * Maren Victoria RN: PERFORM Event Display: Patient Education Leaflets Authored Date: [id number] Bumetanide Oral Tablet ?? [id number] Bumetanide Oral Tablet Brands: Bumex Uses This medicine is used for the following purposes: ??? high blood pressure ??? swelling ?? Instructions This medicine may be taken with or without food. This medicine will work best if you take it at about the same time every day. Keep the medicine at room temperature. Avoid heat and direct light. This medicine will make you urinate more. If you have difficulty passing urine, please tell your doctor. It is important that you keep taking each dose of this medicine on time even if you are feeling well. If you forget to take a dose on time, take it as soon as you remember. If it is almost time for thenext dose, do not take the missed dose. Return to your normal schedule. Do not take 2 doses at one time. Tell your doctor and pharmacist about all your medicines. Include prescription and bmdn-wco-bfjxrsrorrmfnbxo, vitamins, and herbal medicines. Do not suddenly stop taking this medicine. Check with your doctor before stopping. This medicine may affect your blood sugar levels. If you have diabetes, talk to your doctor before changing the dose of your diabetes medicine. It is very important that you follow your doctor's instructions for all blood tests. ?? Cautions Tell your doctor and pharmacist if you ever had an allergic reaction to a medicine. Do not use the medication any more than instructed. This medicine may cause dizziness or fainting, especially after exercising or in hot weather. Be very careful when standing or sitting up quickly. Your ability to stay alert or to react quickly may be impaired by this medicine. Do not drive or operate machinery until you know how this medicine will affect you. It is unknown if this medicine passes into breast milk. Ask your doctor before . During , this medicine should be used only when clearly needed. Talk to your doctor about the risks and benefits. Do not start or stop any other medicines without first speaking to your doctor or pharmacist. Do not share this medicine with anyone who has not been prescribed this medicine. ?? Side Effects The following is a list of some common side effects from this medicine. Please speak with your doctor about what you should do if you experience these or other side effects. ??? constipation ??? dizziness ??? headaches ??? low blood pressure ??? increased urinary frequency Call your doctor or get medical help right away if you notice any of these more serious side effects: ??? confusion ??? ear problems (ringing in the ears, hearing loss) ??? fainting ??? numbness or tingling in hands and feet ??? fast or irregular heart beats ??? muscle cramps or weakness ??? nausea ??? unusual or unexplained tiredness or weakness ??? urinating less often A few people may have an allergic reaction to this medicine. Symptoms can include difficulty breathing, skin rash, itching, swelling, or severe dizziness. If you notice any of these symptoms, seek medical help quickly. ?? Extra Please speak with your doctor, nurse, or pharmacist if you have any questions about this medicine. ?? [email or web address] IMPORTANT NOTE: This document tells you briefly how to take your medicine, but it does not tell youall there is to know about it. Your doctor or pharmacist may give you other documents about your medicine. Please talk to them if you have any questions. Always follow their advice. There is a more complete description of this medicine available in Polish. Scan this code on your smartphone or tablet or use the web address below. You can also ask your pharmacist for a printout. If you have any questions, please ask your pharmacist. The display and use of this drug information is subject to Terms of Use. Copyright(c) 2022 [employer]. ?? [employer]. All rights reserved. This information is not intended as a substitute for professional medical care. Always follow your healthcare professional's instructions. ?? * Maren Victoria RN: PERFORM Event Display: Patient Education Leaflets Authored Date: [id number] Allopurinol Oral Tablet ?? 9773-1 Allopurinol Oral Tablet Brands: Zyloprim Uses This medicine is used for the following purposes: ??? high uric acid levels ??? prevent gout ?? Instructions Take the medicine with food. Keep the medicine at room temperature. Avoid heat and direct light. Drink extra water while on this medicine. Adults should try to drink 6-8 cups (48 to 64 oz.) of water every day. It may take several weeks for this medicine to fully work. It is important that you keep taking each dose of this medicine on time even if you are feeling well. If you forget to take a dose on time, take it as soon as you remember. If it is almost time for thenext dose, do not take the missed dose. Return to your normal schedule. Do not take 2 doses at one time. Tell your doctor and pharmacist about all your medicines. Include prescription and jqym-rhx-dabdbfmkfzyuqrqc, vitamins, and herbal medicines. Do not suddenly stop taking this medicine. Check with your doctor before stopping. ?? Cautions Tell your doctor and pharmacist if you ever had an allergic reaction to a medicine. This medicine has been associated with a rare but serious skin rash. If you notice any red, peelingor blistered skin, contact your doctor immediately. Your ability to stay alert or to react quickly may be impaired by this medicine. Do not drive or operate machinery until you know how this medicine will affect you. Tell the doctor or pharmacist if you are , planning to be , or . Call your doctor right away if you notice any unusual bleeding or bruising. Do not share this medicine with anyone who has not been prescribed this medicine. ?? Side Effects The following is a list of some common side effects from this medicine. Please speak with your doctor about what you should do if you experience these or other side effects. ??? diarrhea ??? drowsiness or sedation ??? pain in the joints ??? nausea and vomiting ??? stomach upset or abdominal pain Call your doctor or get medical help right away if you notice any of these more serious side effects: ??? pain in the eye ??? fever ??? flu-like symptoms ??? swelling in the neck or throat ??? numbnessor tingling in hands and feet ??? signs of liver damage (such as yellowing of eye or skin, dark urine, or unusual tiredness) ??? urinating less often ??? difficulty or discomfort urinating ??? blood in urine ??? blurring or changes of vision A few people may have an allergic reaction to this medicine. Symptoms can include difficulty breathing, skin rash, itching, swelling, or severe dizziness. If you notice any of these symptoms, seek medical help quickly. ?? Extra Please speak with your doctor, nurse, or pharmacist if you have any questions about this medicine. ?? [email or web address] IMPORTANT NOTE: This document tells you briefly how to take your medicine, but it does not tell youall there is to know about it. Your doctor or pharmacist may give you other documents about your medicine. Please talk to them if you have any questions. Always follow their advice. There is a more complete description of this medicine available in Polish. Scan this code on your smartphone or tablet or use the web address below. You can also ask your pharmacist for a printout. If you have any questions, please ask your pharmacist. The display and use of this drug information is subject to Terms of Use. Copyright(c) 2022 [employer]. ?? [employer]. All rights reserved. This information is not intended as a substitute for professional medical care. Always follow your healthcare professional's instructions. ?? * Thad VANN, Cherie Billy: PERFORM Event Display: Patient Education Leaflets Authored Date: [id number] Chronic Kidney Disease (CKD) ?? [id number] Chronic Kidney Disease (CKD) The role of the kidneys is to remove waste products and extra water from the blood.??When the kidneys don't work as they should, waste products start to build up in the blood. This is called chronic kidney disease (CKD). CKD means that you have kidney damage or a decrease in kidney function lastingat least 3 months. CKD allows extra water, waste, and toxins to build up in the body. This can eventually become life-threatening. You might need dialysis or a kidney transplant to stay alive. This most severe form is called end-stage renal disease. Diabetes is one of the leading causes of chronic renal failure. Other causes include high blood pressure, hardening of the arteries (atherosclerosis), lupus, inflammation of the blood vessels (vasculitis), and past viral or bacterial infections. Certain gkus-ryp-mkkvwnm pain medicines can cause renal failure when taken often over a long period of time. These include aspirin, ibuprofen, and related anti-inflammatory medicines called NSAIDs (nonsteroidal anti- inflammatory drugs). Home care These guidelines will help you care for yourself at home: ??? If you have diabetes, talk??with yourhealthcare provider about keeping your blood sugar under control. Ask if you need to make and changes to your diet, lifestyle, or medicines. ??? If you have high blood pressure: o Take prescribed medicine to lower your blood pressure to the recommended goal of less than 130/80. o Start a regular exercise program that you enjoy.??Check with your healthcare provider to be sure your planned exerciseprogram is right for you. o Eat less salt (sodium).??Your healthcare provider can tell you how muchsalt per day is safe for you. ??? If you are overweight, talk??with your??healthcare provider??about a weight loss plan. ??? If you smoke, you must quit. Smoking makes kidney disease worse and puts you at risk for developing other serious illnesses.??Talk??with your healthcare provider about ways to help you quit.??For more information, visit the following links: o www.smokefree.gov/sites/default/files/pdf/yilesonf-usu-pbp-accessible.pdf o www.smokefree.gov o www.cancer.org/healthy/stayawayfromt obacco/guidetoquittingsmoking ??? Most people with??CKD need to follow a special diet. Make sure you understand yours. In general, you will need to limit protein, salt, potassium, and phosphorus.??You also need to limit how much fluid you drink. ??? CKD is a risk factor for heart disease. Talk??with your healthcare provider about any other risk factors you might have and what you can do to lessenthem. ??? Talk??with your healthcare provider about any medicines you are taking to find out if they need to be reduced or stopped. ??? For your own safety, check with your healthcare provider beforetaking any medicines or supplements. Don't use the following wezz-mht-ypevzyb medicines. Or consultyour healthcare provider before using them: o Aspirin and NSAIDs such as ibuprofen or naproxen. Using acetaminophen for fever or pain is OK. o Laxatives and antacids containing magnesium or aluminum o Fleet or phospho-soda enemas containing phosphorus o Certain stomach acid-blocking medicine such as cimetidine or ranitidine?? o Decongestants containing pseudoephedrine?? o Herbal supplements ?? Follow-up care Follow up with your healthcare provider as advised. Visit these websites to learn more: ??? [employer] at www.aakp.org ??? National Kidney Foundation at www.kidney.org ??? [employer] at www.kidneyfund.org ??? National Kidney Disease Education Program at www.nkdep.nih.gov If an X-ray, ECG (electrocardiogram), or other diagnostic test was taken, you'll be told of any newfindings that may affect your care. ?? Call 911 Call 911 right away if any of these occur: ??? Severe weakness, dizziness, fainting, drowsiness, orconfusion ??? Chest pain or shortness of breath ??? Heart beating fast, slow, or irregularly ?? When to get medical advice Call your healthcare provider right away if you have any of these: ??? Upset stomach (nausea) or vomiting ??? Fever??of 100.4??F (38??C) or higher, or as advised by your provider ??? Unexpected weight gain or swelling in the legs, ankles, or around the eyes ??? Not peeing a lot, or not peeing at all ??? New symptoms or symptoms that get worse ?? Last Reviewed Date: 2021 ?? [id number] [employer]. All rights reserved. This information is not intended as a substitute for professional medical care. Always follow your healthcare professional's instructions. ?? Patient Care team information Care Team Personnel Name: Tiffanie Cantu RN Position: [facility] RN Member Role: Primary Care Nurse Name: Ponce Wilkes RN Position: [facility] RN Member Role: Primary Care Nurse Name: Shereen Cortes MD Position: Reference Physician Member Role: PCP Address: Address: [address] [place] [address]- Name: Lily Hooper Position: [facility] Outreach Member Role: Lifetime Consulting Physician Name: Tiara Coleman Position: [facility] AMB Nurse Member Role: Lifetime Consulting Physician Name: Donte Clark III, RN Position: [facility] RN Member Role: Primary Care Nurse Name: Tova Vidales Position: [facility] RN Member Role: Primary Care Nurse Name: Chelo Marie Position: [facility] RN Member Role: Primary Care Nurse Name: Casi Georges RN Position: [facility] RN Member Role: Primary Care Nurse Name: Soto Amador RN Position: [facility] RN Member Role: Primary Care Nurse Name: Rafael Shah MD Position: [facility] Renal MD Member Role: Lifetime Consulting Physician Address: Address: [facility] [address] [facility] [place] [address]- [place] Name: Cherie Alcantar RN Position: [facility] RN Member Role: Primary Care Nurse Name: Pietro Miranda MD Position: [facility] Renal MD Member Role: Lifetime Consulting Physician Address: Address: [address] [place] [address] [facility] [place], [place] [address] Name: Tori Gould RN Position: [facility] RN Member Role: Primary Care Nurse Name: Francis Mccann RN Position: [facility] RN Member Role: Primary Care Nurse Name: Helena YOUNG Attending Position: [facility] ED Medicine MD Name: Helen Baltazar Position: [facility] ED RN W/OE and Tasks Member Role: Patient Care Provider Name: Vicki Noriega Position: [facility] ED TA [facility] Member Role: Receiving Coordinator Name: Sheron Moreno RN Position: [facility] ED RN W/OE and Tasks Member Role: Patient Care Provider Care Team Related Persons Name: LES MEDINA Address: [address] [address]
--- OUTSIDE RECORDS SUMMARY | 2023-12-22 06:59 | XMS_ITS | Continuity of Care Document ---
Author Organization [facility] Address [address] [place] [address]- Care Team Providers Care Lock Technician Name Role Phone Sebastian CASTRO, Shereen Banerjee Primary Care Physician [place] [facility] 06/07[place]23 - 07/07/23 [facility] [address] [facility] [address] [place] [address]- Attending Physician: Saurav Signh Admitting Physician: Saurav Singh Referring Physician: AdmtrSaurav Allergies, Adverse Reactions, Alerts Substance Reaction Severity [...] influenza virus vaccine, inactivated 03/26/16 Jeremiah rded [id number] 12y+ bivalent booster vax 06/14/22 Recorded zoster vaccine, inactivated 10/13/21 Recorded SARS-CoV-2 mRNA (gajecni-kmbj-qrshz) vax 10/13/21 Recorded SARS-CoV-2 (COVID-19) mRNA BNT-162b2 vac 09/25/20 Recorded SARS-CoV-2 (COVID-19) mRNA BNT-162b2 vac 09/04/20 Recorded tetanus/diphtheria/pertussis, acel(Tdap) 11/09/16 Recorded Medications Allopurinol 100 mg, By Mouth, Daily, Refills 0, Maintenance, 08/11/20 16:30:00 EST, Partial fill upon patient request if the prescription is for a schedule II opioid drug. Start Date: 2/15/21 Status: Ordered amLODIPine 10 mg oral tablet [...] 01/22/23 12:19:00 EDT, Route to Pharmacy Electronically, [id number], Partial fill upon patient request [...] Maintenance, :45:00 EST, Route to Pharmacy Electronically, [facility], Partial fill upon patient [...] Primary Care Nurse Name: Nadja Helms Position: [facility] Outreach Member Role: Lifetime Consulting Physician Name: Shereen Cortes MD Position: Reference Physician Member Role: PCP Address: Address: [address] Name: Lily Hooper Position: [facility] Outreach Member Role: Lifetime Consulting Physician Name: Tiara Coleman Position: [facility] AMB Nurse Member Role: Lifetime Consulting Physician Name: Donte Clark III, RN Position: [facility] RN Member Role: Primary Care Nurse Name: Tova Vidales RN Position: [facility] RN Member Role: Primary Care Nurse Name: Chelo Marie Position: [facility] RN Member Role: Primary Care Nurse Name: Casi Georges RN Position: S RN Member Role: Primary Care Nurse Name: Soto Amador RN Position: S RN Member Role: Primary Care Nurse Name: Rafael Sahh MD Position: [facility] Renal MD Member Role: Lifetime Consulting Physician Address: Address: [address] [place] [address] [address] [facility] [place] [address]- Name: Cherie Alcantar RN Position: [facility] RN Member Role: Primary Care Nurse Name: Pietro Miranda MD Position: [facility] Renal MD Member Role: Lifetime Consulting Physician Address: Address: [address] [place] [address] [facility] [place] [address]- Name: Tori Gould RN Position: S RN Member Role: Primary Care Nurse Name: Francis Mccann RN Position: [facility] RN Member Role: Primary Care Nurse Care Team Related Persons Name: CAROLLSE GALDAMEZ Address: [address] [address]
--- OUTSIDE RECORDS SUMMARY | 2023-12-22 06:59 | XMS_ITS | Continuity of Care Document ---
Author Organization [facility] Address [address] [address]- Care Team Providers Care Elevator Repair Mechanic Name Role Phone Sebastian CASTRO, Shereen Banerjee Primary Care Physician Encounter [facility] Date(s): 08/02/23 - 08/09/23 [facility] [address] [address]- [place] Encounter Diagnosis Pericardial effusion(Discharge Diagnosis) - 08/02/23 Attending Physician: Morgan Guevara MD Admitting Physician: Morgan Guevara MD Referring Physician: Elizabeth Tejeda MD Allergies, [...] influenza virus vaccine, inactivated 03/26/16 Jeremiah rded [id number] 12y+ bivalent booster vax 06/14/22 Recorded zoster vaccine, inactivated 10/13/21 Recorded SARS-CoV-2 mRNA (rexobaa-tsbv-ubkyk) vax 10/13/21 Recorded SARS-CoV-2 (COVID-19) mRNA BNT-162b2 [...] 0 Refills, Maintenance, 01/22/23 12:09:00 EDT, Tablet, [id number], Partial fill upon patient request if the prescription is for a schedule II opioid drug., 173, cm, 01/22/23 0:28:00 EDT, H... Start Date: 01/22/23 Stop Date: 02/21/23 Status: Ordered carvedilol 6.25 mg oral tablet 6.25 mg, 1, tablet, By Mouth, 2 times a day, # 60 tablet, Refills 0, Tot. Refills 0, Maintenance, 01/22/23 12:19:00 EDT, Route to Pharmacy Electronically, [id number], Partial fill upon patient request if [...] 0 Refills, Maintenance, 01/22/23 12:12:00 EDT, Tablet, [id number], Partial fill upon patient request if the prescription is for a schedule II opioid drug., 173, cm, 01/22/23 0:28:00 ED... Start Date: 01/22/23 Stop Date: 02/21/23 Status: Ordered tamsulosin 0.4 mg oral capsule 0.4 mg, 1, capsule, By Mouth, Daily, # 30 capsule, Refills 0, Tot. Refills 0, Maintenance, 238:45:00 EST, Route to Pharmacy Electronically, [facility], Partial fill upon patient request if [...] complicated Confirmed Active Severe obesity Confirmed Active Diagnosis Diagnosis Type Effective Dates Health Status Clinical Service Informant Pericardial effusion Discharge Diagnosis 08/02/23 Vital Signs Most recent to oldest [Reference Range]: 1 2 Height 179.6 cm (08/04/23 8:57 AM) 179.6 cm (08/02/23 9:04 AM) Weight 129.5 kg (08/04/23 8:57 AM) 129.5 kg (08/02/23 9:04 AM) Oxygen Saturation [94-100 %] 99 % (08/02/23 9:04 AM) Pulse Rate [55-90 bpm] 71 bpm (08/02/23 9:04 AM) Body Mass Index [18.5-24.99 kg/m2] 40.15 kg/m2 *>HHI* (08/02/23 9:04 AM) Blood Pressure [90-138/55-84 mm Hg] 128/ 76mm Hg (08/02/23 9:04 AM) Blood pressure sites Arm, left (08/02/23 9:04 AM) Weight Obtained Via Standing scale (08/02/23 9:04 AM) Social History Social History Type Response Smoking Status Never smoker; Tobacc o user in household: No entered on: 02/14/15 Sex EKG study * Event Display: ECG 12-Lead Authored Date: [id number] Please click on pdf link to open report * Event Display: ECG 12-Lead Authored Date: Ventricular Rate: 71 BPM Atrial Rate: 71 BPM P-R Interval: 200 ms QRS Duration: 88 ms Q-T Interval: 428 ms QTC Calculation(Bazett): 465 ms P Clare: 33 degrees R Clare: -37 degrees T Clare: 14 degrees Normal sinus rhythm Left axis deviation Minimal voltage criteria for LVH, may be normal variant Abnormal ECG When compared with ECG of 01-APR-2023 09:16, No significant change was found Confirmed by MORGAN GUEVARA ([id number]) on 08/02/2023 5:59:55 PM [place]: MORGAN GUEVARA Cardiology Outpatient Note * Morgan Guevara MD: PERFORM Event Display: Cardiology Note Office Authored Date: [id number] Patient: ??MOUSTAPHA MEDINA ? Age:??58 Years?Sex:??Male?:??1965?? Patient Hx Provider Clinical Summary 58-year-old man with a history of end-stage renal disease on peritoneal dialysis, hypertension, diabetes on insulin, obesity status post bariatric sleeve in 2020, left BKA for diabetic foot infectionwho presents to cardiology clinic for evaluation prior to kidney transplant.?? He reports no cardiac symptoms.?? He has no angina or julisa dyspnea on exertion.?? He does walk on a treadmill with a walker, able to go for 10 to 15 minutes at a time and reports no dyspnea.?? He denies a history of stroke or underlying CAD.?? He did have signs of volume overload about a year ago before he was referred for HD, but those symptoms have markedly dissipated since starting dialysis.?? Echocardiogram at that time revealed normal LV size, LVH with a normal EF and no significant valve disease.?? He was found to have a small pericardial effusion at that time. ?? Impression and plan: Moustapha had a regadenoson stress test before this appointment and there is no sign of ischemia.??LVEF is normal. ECG is unchanged from priors; sinus rhythm with LVH.??In spite of his left BKA status he does appear to have good functional capacity without evidence of dyspnea or angina.?? While I am ob taining a repeat echocardiogram for surveillance of his previously noted pericardial effusion, I see no other prohibitive issues that would prevent him from going forward with renal transplant, assuming that TTE returns stable/improved findings.?? He appears to be an acceptable risk based on present data.?? Patient wishes to follow-up as needed. Physical Exam Vitals & Measurements HR:??71??(Peripheral)?? BP:??128/76?? SpO2:??99%?? HT:??179.6??cm?? WT:??129.5??kg?? BMI:??40.15?? Weight lb/oz: 285 lb 8 oz GENERAL: ??Alert and oriented x3, no acute distress. HEENT: Mucous membranes pink and moist. ?? NECK: ??No JVD?? LUNGS: Clear to auscultation bilaterally. ??No crackles, wheezing, rhonchi. ?? HEART: ??Regular rate and rhythm, normal S1, S2. ??No murmurs, rubs, or gallops.?? ABDOMEN: Soft, nontender, nondistended.??Obese. PD port in place EXTREMITIES:?L BKA, has prosthetic on that??side?? PULSES: 2+ radials SKIN: Warm and well perfused. ?? NEURO: ??Oriented to person, time, and place, following commands, and moving all extremities.?? MUSCULOSKELETAL: ??Negative.?? Assessment/Plan 1.??Pericardial effusion Ordered: Echo Complete ?? 2.??Preop examination Ordered: ECG 12 Lead Echo Complete ?? Allergies Keflex??(muscles locked up, could not move) metFORMIN??(GI upset) Home Medications Allopurinol, 100 mg, By Mouth, Daily amLODIPine 10 mg oral tablet, 10 mg= 1 tablet, By Mouth, Daily atorvastatin 10 mg oral tablet, 10 mg= 1 tablet, By Mouth, Daily at bedtime bumetanide 2 mg oral tablet, 2 mg= 1 tablet, By Mouth, 2 times a day carvedilol 6.25 mg oral tablet, 6.25 mg= 1 tablet, By Mouth, 2 times a day gabapentin 300 mg oral capsule, 300 mg= 1 capsule, By Mouth, Daily NovoLOG FlexPen 100 units/mL injectable solution sevelamer carbonate 800 mg oral tablet, 800 mg, By Mouth, 3 times a day with meals tamsulosin 0.4 mg oral capsule, 0.4 mg= 1 capsule, By Mouth, Daily Toujeo SoloStar 300 units/mL subcutaneous solution, 6 units, Subcutaneous Injection, Daily at bedtime Lab Results Cardiology Labs WBC:??11.2 k/mm3??High (04/01/23) RBC:??4.06 m/mm3??Low (04/01/23) Hgb:??12.2 Gm/dL??Low (04/01/23) Hct:??36 %??Low (04/01/23) MCV: 88.7 femtoliters (04/01/23) MCH: 30 pg (04/01/23) MCHC: 33.9 g/dL (04/01/23) Platelet Count:??133 k/mm3??Low (04/01/23) RDW-SD: 45.4 femtoliters (04/01/23) Nucleated RBC (Automated): 0 #/100 WBC'S (04/01/23) Abs. Neut:??7.4 k/mm3??High (01/19/23) Abs. Lymph:??0.5 k/mm3??Low (01/19/23) Abs. Mcnairy: 0.4 k/mm3 (01/19/23) Abs. Eo: 0.1 k/mm3 (01/19/23) Abs. Baso: 0 k/mm3 (01/19/23) Neut %:??86.8 %??High (01/19/23) Mcnairy %: 5.2 % (01/19/23) Eos %: 0.8 % (01/19/23) Baso %: 0.2 % (01/19/23) Imm Gran: 1.1 % (01/19/23) Abs. Imm Gran: 0.1 k/mm3 (01/19/23) INR: 1 (03/14/23) Protime (PT): 10.3 seconds (03/14/23) APTT: 29.5 seconds (03/14/23) Sodium:??132 mmol/L??Low (04/01/23) Potassium: 4.9 mmol/L (04/01/23) Chloride:??97 mmol/L??Low (04/01/23) Bicarbonate Level:??14 mmol/L??Low (04/01/23) Glucose Level:??234 mg/dL??High (04/01/23) Hemoglobin A1C (Monitoring):??6.2 %??High (03/14/23) BUN:??79 mg/dL??High (04/01/23) Creatinine-Blood:??7.3 mg/dL??High (04/01/23) Calcium: 9.2 mg/dL (04/01/23) Protein, Total: 7.5 Gm/dL (04/01/23) Albumin: 4.4 Gm/dL (04/01/23) Alkaline Phosphatase: 100 units/L (04/01/23) AST (SGOT): 11 units/L (04/01/23) ALT (SGPT): 10 units/L (04/01/23) Bilirubin, Total: 0.4 mg/dL (04/01/23) Nt-Probnp:??2172 pg/mL??High (09/14/22) TSH:??5.02 uIU/mL??High (01/19/23) Free T4: 1.2 ng/dL (01/19/23) Diagnostic Impression ECG ECG 12-Lead ?? 09:16:48 Please click on pdf link to open report ?? Signed By: Ubaldo CASTRO, Tab Cortez ?? ECG 12-Lead ?? 09:16:48 Ventricular Rate: 85 BPM Atrial Rate: 85 BPM P-R Interval: 212 ms QRS Duration: 82 ms Q-T Interval: 398 ms QTC Calculation(Bazett): 473 ms P Clare: 37 degrees R Clare: -36 degrees T Clare: 26 degrees Sinus rhythm with 1st degree A-V block Left axis deviation Abnormal ECG When compared with ECG of 14-MAR-2023 12:31, No significant change was found Confirmed by TAB CONNER MD ([id number]) on 04/01/2023 11:23:36 AM ?? [place]: TAB CONNER MD ?? Signed By: Tab Conner MD T Stress Test NM Myocard Perf SPECT Multi ?? 09:11:00 Summary 1. Myocardial perfusion imaging is normal without any fixed or reversible perfusion defect after Regadenoson stress test. 2. LV function is normal with an E.F. of 68 % at rest and 72 % with stress with normal wall motion and thickening. 3. EKG portion of the stress test is reported separately. ?? Signatures _ _ ?? Signed By: Juan Rodriguez MD Echo Echocardiogram - Complete ?? 14:33:47 Summary There is a small pericardial effusion . There is an epicardial fat pad present. The IVC appears dilated with preserved respirophasic variation. Some respirophasic changes noted on the mitral inflow that does not meet cutoff for significance (variation noted is < 25%). ?? Comparison Comparison is made to the study of August 12, 2022. Probably no significant change in the size of pericardial effusion . ?? Signature ?? Signed By: Jesús Caraballo MD Problem List/Past Medical History Ongoing Chronic kidney disease (CKD), stage III (moderate) Diabetes Hypertension Multinodular goiter Open wound of foot, complicated Severe obesity Procedure/Surgical History Total thyroid lobectomy, unilateral; with or without isthmusectomy: 03/25/15 Follow-Up Appointments Added Follow Up ?Time Frame ?Comments As Needed Social History Alcohol Use: Never. Tobacco Never smoker, Tobacco user in household: No. Family History No family history recorded. Patient Care team information Care Team Personnel Name: Tiffanie Cantu RN Position: [facility] RN Member Role: Primary Care Nurse Name: Ponce Wilkes RN Position: [facility] RN Member Role: Primary Care Nurse Name: Nadja Helms Position: [facility] Outreach Member Role: Lifetime Consulting Physician Name: Shereen Cortes MD Position: Reference Physician Member Role: PCP Address: Address: [address] [place], [place] [address] Name: Lily Hooper Position: [facility] Outreach Member Role: Lifetime Consulting Physician Name: Tiara Coleman Position: [facility] AMB Nurse Member Role: Lifetime Consulting Physician Name: Donte Clark III, RN Position: [facility] RN Member Role: Primary Care Nurse Name: Tova Vidales RN Position: [facility] RN Member Role: Primary Care Nurse Name: Chelo Marie Position: [facility] RN Member Role: Primary Care Nurse Name: Casi Georges RN Position: [facility] RN Member Role: Primary Care Nurse Name: Soto Amador RN Position: [facility] RN Member Role: Primary Care Nurse Name: Rafael Shah MD Position: [facility] Renal MD Member Role: Lifetime Consulting Physician Address: Address: [facility] [address] [facility] [place] [address]- Name: Cherie Alcantar RN Position: [facility] RN Member Role: Primary Care Nurse Name: Pietro Miranda MD Position: [facility] Renal MD Member Role: Lifetime Consulting Physician Address: Address: [address] [facility] [place] [address]- Name: Tori Gould RN Position: [facility] RN Member Role: Primary Care Nurse Name: Francis Mccann RN Position: [facility] RN Member Role: Primary Care Nurse Care Team Related Persons Name: LES MEDINA GEOFFREY Address: [address] [address]
--- OUTSIDE RECORDS SUMMARY | 2023-12-22 06:59 | XMS_ITS | Continuity of Care Document ---
Author Organization Pre Op Overflow Address [address] [place] [address]- Care Team Providers Care Decorator Street And Building Name Role Phone Sebastian CASTRO, Shereen Banerjee Primary Care Physician Encounter [facility] [id number] Date(s): 11/01/23 - 11/08/23 Pre Op Overflow [address] [place] [id number] Attending Physician: Jacquelin CASTRO, Benjy Jaramillo Referring Physician: Zainab Berg MD [place] Allergies, Adverse Reactions, Alerts Substance Reaction Severity [...] influenza virus vaccine, inactivated 03/26/16 Jeremiah rded [id number] 12y+ bivalent booster vax 06/14/22 Recorded zoster vaccine, inactivated 10/13/21 Recorded SARS-CoV-2 mRNA (esnxfqv-cwbk-tyhxw) vax 10/13/21 Recorded SARS-CoV-2 (COVID-19) mRNA BNT-162b2 [...] 0 Refills, Maintenance, 01/22/23 12:09:00 EDT, Tablet, [facility]/pharmacy #[id number], Partial fill upon [...] 01/22/23 12:19:00 EDT, Route to Pharmacy Electronically, [facility]/pharmacy #[id number], Partial fill upon [...] DETAILED DIRECTIONS Start Date: 08/12/22 Status: Ordered [place] Caps oral capsule 1 capsule, By Mouth, Daily, 0 Refills, Maintenance, 11/01/23 8:30:00 EDT, Partial fill upon patientrequest if the prescription is for a schedule II opioid drug. Start Date: 11/01/23 Status: Ordered sevelamer carbonate 800 mg oral tablet = 800 mg, By Mouth, 3 times a day with meals, # 90 tablet, 0 Refills, Maintenance, 01/22/23 12:12:00 EDT, Tablet, [facility]/pharmacy #[id number], Partial fill upon patient request if the prescription is for a schedule II opioid drug., 173, cm, 01/22/23 0:28:00 ED... Start Date: 01/22/23 Stop Date: 02/21/23 Status: Ordered tamsulosin 0.4 mg oral capsule 0.4 mg, 1, capsule, By Mouth, Daily, # 30 capsule, Refills 0, Tot. Refills 0, Maintenance, :45:00 EST, Route to Pharmacy Electronically, [facility], Partial fill upon [...] obesity (BMI 35.0-39.9) with comorbidity Confirmed Active Procedures Procedure Date Related Diagnosis Body Site Status Gastric sleeve 2020 Completed Achilles tendon rupture repair Completed Amputation of toe-right fourth Completed BKA - Below knee amputation-left Completed PD - Peritoneal dialysis cath Completed Penile prosthesis operation Completed Vital Signs Most recent to oldest [Reference Range]: 1 Height 179.6 cm (11/01/23 8:31 AM) Weight 128.9 kg (11/01/23 8:31 AM) Oxygen Saturation [94-100 %] 98 % (11/01/23 8:31 AM) Pulse Rate [55-90 bpm] 85 bpm (11/01/23 8:31 AM) Body Mass Index [18.5-24.99 kg/m2] 39.96 kg/m2 *>HHI* (11/01/23 8:31 AM) Blood Pressure [90-138/55-84 mm Hg] 142/ 78mm Hg *H* (11/01/23 8:31 AM) Respiratory Rate [16-30 br/min] 18 br/mi n (11/01/23 8:31 AM) Mode of Delivery (Oxygen) Room air (11/01/23 8:31 AM) Blood pressure sites Arm, right (11/01/23 8:31 AM) Weight Obtained Via Standing scale (11/01/23 8:31 AM) Social History Social History Type Response [...] Physician Member Role: PCP Address: Address: [address] [place] [address]- Name: Lily Hooper [facility] Primary Care Nurse Name: Chelo Marie Position: [facility] RN Member Role: Primary Care Nurse Name: Casi Georges RN Position: [facility] RN Member Role: Primary Care Nurse Name: Soto Amador RN Position: [facility] RN Member Role: Primary Care Nurse Name: Rafael Shah MD Position: [facility] Renal MD Member Role: Lifetime Consulting Physician Address: Address: [facility] [address] [facility], [place] [address]- Name: Cherie Alcantar RN Position: [facility] RN Member Role: Primary Care Nurse Name: Pietro Miranda MD Position: [facility] Renal MD Member Role: Lifetime Consulting Physician Address: Address: [address] [place] [address] [facility] [place], [place] [address] Name: Tori Gould RN Position: S RN Member Role: Primary Care Nurse Name: Francis Mccann RN Position: S RN Member Role: Primary Care Nurse Care Team Related Persons Name: LES MEDINA Address: [address] [address]
== END 2023-12-17 07:17 | disposition short-term general hospital (02) ==
PROVIDERS: Physician Assistant Medical; Emergency Provider Emergency Medicine; PCP Internal Medicine
DX: L03.115 Cellulitis of right lower limb (principal); R60.0 Localized edema; E11.22 Type 2 diabetes mellitus with diabetic chronic kidney disease; R94.31 Abnormal electrocardiogram [ECG] [EKG]; I12.0 Hypertensive chronic kidney disease with stage 5 chronic kidney disease or end stage renal disease; N18.5 Chronic kidney disease, stage 5; Z79.4 Long term (current) use of insulin; Z03.818 Encounter for observation for suspected exposure to other biological agents ruled out; Z79.899 Other long term (current) drug therapy
CPT/HCPCS: 0241U; 71045; 80053; 81001; 82550; 83605; 83735; 85025; 86140; 87040; 87651; 93005; 93971; 96361; 96365; 96375; 99285; J1790; J2270; J2543; J3370

== ENCOUNTER → 2023-12-16 22:37 | Outpatient (BNV) | payer OTHER, SELFPAY | PROVIDERS: Emergency Provider Emergency Medicine; PCP Internal Medicine; Visit Provider Internal Medicine Cardiovascular Disease | DX: R94.31 Abnormal electrocardiogram [ECG] [EKG] (principal); R53.1 Weakness | CPT/HCPCS: 93010 ==

== ENCOUNTER 2024-01-23 09:01 | Outpatient (AMB) | payer OTHER, SELFPAY ==
--- OUTSIDE RECORDS SUMMARY | 2024-01-23 09:03 | XMS_ITS | Patient Health Record ---
Author Organization [facility] Address [address] [place] [address] Care Team Providers Care Core Fitter Name Role Phone Shereen Cortes MD Primary Care Provider Donte Llamas Unavailable [phone] ALLERGIES Allergen (clinical drug ingredient) Drug/Non Drug [...] malignant neoplasm of colon (Z12.11) Active confirmed 062803346 Problem Abdominal bloating (R14.0) Active confirmed 164814691 Problem Abdominal pain, epigastric (R10.13) Active confirmed 98494313 Problem Abdominal pain, left upper quadrant (R10.12) Active confirmed 546322440 Problem Small intestinal bacterial overgrowth (K63.89) Active confirmed 822675209 PLAN OF TREATMENT Pending Test Test Name [...] Provider Name:Donte Ching , 03/09/2024 02:40:00 PM, [address] [place] [address], [address], [place], [address], Insurance Providers Payer Name Payer Address Payer Phone Subscriber Number Group Number Insured Name Patient Relationship to Insured Coverage Start Date Coverage End Date [facility] [place] [place] [address] [place] [address] [id number] PAKO MEDINA Self - patient is the insured MEDICAL (GENERAL) HISTORY Medical History History ICD Code IDDM--sees Dr. Gaytan Hypertension Denies [place],CVA,Lung disease,renal disease Hyperlipidemia Neuropathy in LE's Sleep [...]
--- OUTSIDE RECORDS SUMMARY | 2024-01-23 09:03 | XMS_ITS | Patient Health Record ---
Author Organization [facility] Address [address] [place] [address] Care Team Providers Care Vegetable Tester Name Role Phone Sebastian CASTRO, Shereen Goodwin Primary Care Provider Un available Jacobo Rabago Unavailable [phone] ALLERGIES Allergen (clinical drug ingredient) Drug/Non Drug [...] swati osteoarthritis of the ankle and/or foot (982737752) Problem Primary osteoarthrit is, left ankle and foot (M19.072) Active confirmed Localized, prim swati osteoarthritis of the ankle and/or foot (541122958) Problem Other hammer toe(s) (acquired), right foot (M20.41) Active confirmed Acquired hammer toe of right foot (8588984902625183) Problem Other hammer toe(s) (acquired), left foot (M20.42) Active confirmed Acquired hammer toe of left foot (4320496564940694) PLAN OF TREATMENT Pending Test Test Name [...] X ray : Foot, left 3V 04/13/2016 31419-GHOHSDU NAIL, 6 OR MORE 10/27/2015 31209-MQOLCXP NAIL, 6 OR MORE 12/31/2015 99466-RCFSITN NAIL, 6 OR MORE 01/12/2016 75792-TGTEAJJ NAIL, 6 OR MORE 08/07/2015 13440-NBREJYQ NAIL, 6 OR MORE 08/20/2015 72102-SAROBTY NAIL, 6 OR MORE 02/20/2016 08416-LAYXOQG NAIL, 6 OR MORE 04/18/2017 17817-DGHKMVZ NAIL, 6 OR MORE 02/07/2017 77141-CSIRNCQ NAIL, 6 OR MORE 07/08/2016 95426-FUMWRWJ NAIL, 6 OR MORE 09/06/2016 29274-VFIRJLA NAIL, 1-5 02/16/2018 78226-NDGXWTS NAIL, 1-5 05/25/2018 48219-Vunfxovj Plate 02/16/2018 78642-Ebzsuxfe Plate 07/08/2016 84959- Debride <25 sq cm 06/02/2016 71020- Debride <25 sq cm 05/19/2016 84098- Debride <25 sq cm 12/06/2013 92055- Debride <25 sq cm 08/20/2015 24638- Debride <25 sq cm 05/10/2013 78674- Debride <25 sq cm 04/28/2016 71771- Debride <25 sq cm 05/13/2016 07351- Debride <25 sq cm 04/13/2016 04718-HFMTACL SKIN/TISSUE 08/07/2015 16590-IFUMKKW SKIN/TISSUE 08/20/2015 07199-HPUV SKIN LESIONS, OVER 4 08/20/19 16 63721-UXND SKIN LESIONS, OVER 4 02/20/20 16 01291-MKEL SKIN LESIONS, OVER 4 08/07/19 16 41849-OBTF SKIN LESIONS, OVER 4 10/27/19 16 81668-MIIT SKIN LESIONS, OVER 4 09/07/19 17 98247-NEHH SKIN LESIONS, OVER 4 11/09/19 17 04481-GXSG SKIN LESIONS, OVER 4 02/08/20 17 34155-QZMP SKIN LESIONS, OVER 4 07/08/19 17 29069-AADD SKIN LESIONS, OVER 4 04/18/20 17 55840-FGUA SKIN LESIONS, OVER 4 02/17/20 18 06793-AVJM SKIN LESIONS, OVER 4 05/25/20 18 30399-KYMN SKIN LESIONS, OVER 4 08/23/19 19 96333-EDAB SKIN LESIONS, OVER 4 11/23/19 19 56227-STIQ SKIN LESIONS, 2 TO 4 05/10/20 13 60900-WEVQ SKIN LESIONS, 2 TO 4 12/07/19 14 E2279-QSPMUIVB DYSTROPHIC NAILS ANY # E7657-QJNFDAMW DYSTROPHIC NAILS ANY # 64795-DOJXYRWP OF HEMATOMA/FLUID 018 Insurance Providers Payer Name Payer Address Payer Phone Subscriber Number Group Number Insured Name Patient Relationship to Insured Coverage Start Date Coverage End Date Medicare National [employer] [address] [place] [address] Moustapha Ruiz Self - patient is the insured MEDICAL (GENERAL) HISTORY Medical History History ICD Code poor circulation high blood pressure diabetic Gout measles chicken pox Surgical History Surgery Date(Month/Year) ACL right foot left foot Graft 01/1994 left middle finger Graft left foot, skin graft 08/2014 [place] [facility] [place] Hospitalization History Reason Date(Month/Year) [facility] - Stomach Pain was disch arged on 01/31/16 01/29/2016 [facility] [place] second [place] infection 016 [facility] [place] - 22 day stay 06/2017
--- NOTE | 2024-01-23 09:14 | MHC.OFFWIV ---
Intake Vital Signs 01/23/24 09:15 Height 6 ft Weight 273 lb BMI 37.0 BP 116/68 Blood Pressure Location Rt brachial Pulse 84 Pulse Source Pulse Oximeter Temp 99.4 F Temp Source Oral Pulse Oximetry (%) 98 Oxygen Delivery Method Room Air Intake Visit Reasons: Painful Cyst on Lower back Intake Note: pt here c/o cyst on tailbone. Noticed a couple days ago Patient Tobacco Use Status: Never used Tobacco Allergies cephalexin [CEPHALEXIN] Allergy (Intermediate, Verified 01/23/24 09:14) UNABLE TO MOVE ENTIRE BODY, chills and fever, nausea, chills, fever, and nausea metformin [METFORMIN] Adverse Reaction (Intermediate, Verified 01/23/24 09:14) ADVISED NOT TO TAKE ANYMORE,SHAKEY,STOMACH PAINS, stomach upset, stomach upset Do you need a note to return to daycare/school/sports/work: No HPI Painful Cyst on Lower back HPI Details This note is constructed using voice recognition software. While every effort has been made to ensure accuracy, clerical adviser errors may have been included. The patient is a 58 year old male who presents to the clinic today with several day history of painful cyst [facility] Medical History (Updated 12/18/23 @ 00:02 by Yanelis Zhang) Difficulty swallowing Epigastric pain syndrome Chronic right shoulder pain Spinal stenosis of lumbosacral region with radiculopathy Vitamin D deficiency Osteomyelitis of toe of right foot Chronic kidney disease, stage 5 Chronic low back pain Pericardial effusion Cellulitis of right lower leg Major depressive disorder Diabetes mellitus with retinopathy Diabetes mellitus with diabetic nephropathy, with long-term current use of insulin Dyslipidemia Diabetic gastroparesis associated with type 2 diabetes mellitus Morbid obesity Celiac disease Diabetic neuropathy associated with type 2 diabetes mellitus Non-toxic multinodular goiter Hypertension Renal calculi Gastroparesis Hypercholesterolemia Peripheral vascular disease Surgical History Status post amputation of lesser toe of right foot S/P laparoscopic sleeve gastrectomy Hx of colonoscopy History of below-knee amputation (~06/28/17) History of lobectomy of thyroid (~03/25/15) History of esophagogastroduodenoscopy (EGD) (~09/26/13) History of repair of ACL (~2004) History of skin graft (~1993) Family History Father Hypertension Diabetes Mother No problems noted. Sister Mental health disorder Social History Household Members: Spouse Housing: Apartment Do you presently have visiting nurse or other home services: No Alcohol intake: never Comment: refuses alarm Patient Tobacco Use Status: Never used Tobacco e-Cigarette/Vaping Use: Never Used service: No Current occupational status: disabled Cognitive needs: No Hearing needs: No Vision needs: No Review of Systems Const All systems reviewed & are unremarkable except as noted in HPI and below Physical Exam Vital Signs: Last Vital Signs Temp 99.4 F 01/23/24 09:15 Pulse 84 01/23/24 09:15 BP 116/68 01/23/24 09:15 Pulse Ox 98 01/23/24 09:15 Oxygen Delivery Method Room Air 01/23/24 09:15 BMI result Body Mass Index 37.0 Const General: cooperative, healthy appearing, comfortable, no acute distress and alert Orientation/consciousness: patient oriented x3 Limitations: no limitations Skin Other: Left buttock area of induration approximately 7 by 4 cm with erythema and warmth. No discharge present, no open lesions. General skin exam: elasticity normal and turgor normal Neuro General: patient oriented x3 Psych Appearance: grossly normal Mental Status: mental status grossly normal Speech and movement: Normal speech and movement present Affect: normal affect Assessment & Plan Assessment & Plan (1) Chronic kidney disease, stage 5: Comment: Followed by Dr. Catalino Mancia Code(s): N18.5 - Chronic kidney disease, stage 5 Plan: Patient continues with dialysis treatment, antimicrobial therapy adjusted for skin infection based both kidney disease as well as allergy profile. Advised patient to continue to follow specialty. (2) Skin infection: Code(s): L08.9 - Local infection of the skin and subcutaneous tissue, unspecified Plan: Antimicrobial therapy initiated, advised patient to try a warm compresses as well as follow up with PCP for consideration of incision and drainage if appropriate. Given patient's longstanding history of kidney disease and dialysis, as well as his allergy profile, antimicrobial therapy selected to satisfy his personal needs as well as treat infection. Plan See above for full details and plan. Medications: New doxycycline hyclate 100 mg PO BID 10 days 20 caps 0RF Coding Level of Care Code Est Pt Level 4 (39931) Diagnoses Chronic kidney disease, stage 5 N18.5 Skin infection L08.9 Time Spent (min) 35
[2024-01-23 09:15] VITALS: BP 116/68; PULSE 84; TEMP 37.4; O2SAT 98; BMI 37.0
== END 2024-01-23 09:58 | disposition home or self-care (01) ==
PROVIDERS: PCP Internal Medicine; Visit Provider Registered Nurse
DX: N18.5 Chronic kidney disease, stage 5 (principal); L08.9 Local infection of the skin and subcutaneous tissue, unspecified
CPT/HCPCS: 99214

== ENCOUNTER 2024-01-24 06:49 | Emergency (ER) | payer OTHER, SELFPAY ==
[2024-01-24 07:04] VITALS: BP 102/56; PULSE 80; RESP 18; TEMP 36.9; O2SAT 96; BMI 39.8
--- NOTE | 2024-01-24 07:32 | PC.NURSE ---
Patient reports pain to buttocks since Tuesday. Abscess noted to right buttocks with redness without drainage. Patient reports 9/10 pain and unable to sit directly on buttocks. Denies hx of previous abscess at site
--- OUTSIDE RECORDS SUMMARY | 2024-01-24 07:32 | XMS_ITS | Patient Health Record ---
Author Organization [facility] Address [address] [place] [address] Care Team Providers Care Special Services Agent Name Role Phone Shereen Cortes MD Primary Care Provider Donte Llamas Unavailable [phone] ALLERGIES Allergen (clinical drug ingredient) Drug/Non Drug [...] malignant neoplasm of colon (Z12.11) Active confirmed 060486283 Problem Abdominal bloating (R14.0) Active confirmed 614451782 Problem Abdominal pain, epigastric (R10.13) Active confirmed 18884872 Problem Abdominal pain, left upper quadrant (R10.12) Active confirmed 159975010 Problem Small intestinal bacterial overgrowth (K63.89) Active confirmed 202569357 PLAN OF TREATMENT Pending Test Test Name [...] Provider Name:Donte Ching , 03/09/2024 02:40:00 PM, [address] [place] [address], [address], [place], [address], Insurance Providers Payer Name Payer Address Payer Phone Subscriber Number Group Number Insured Name Patient Relationship to Insured Coverage Start Date Coverage End Date [facility] [address] [place] [address] [id number] PAKO MEDINA Self - patient is the insured MEDICAL (GENERAL) HISTORY Medical History History ICD Code IDDM--sees Dr. Gaytan Hypertension Denies [place],CVA,Lung disease,renal disease Hyperlipidemia Neuropathy in LE's Sleep [...]
--- OUTSIDE RECORDS SUMMARY | 2024-01-24 07:32 | XMS_ITS | Patient Health Record ---
Author Organization [facility] Address [address] [place] [address] Care Team Providers Care Payloader Machine Operator Name Role Phone Sebastian CASTRO, Shereen Goodwin Primary Care Provider Un available Jacobo Rabago Unavailable [phone] ALLERGIES Allergen (clinical drug ingredient) Drug/Non Drug [...] swati osteoarthritis of the ankle and/or foot (738625011) Problem Primary osteoarthrit is, left ankle and foot (M19.072) Active confirmed Localized, prim swati osteoarthritis of the ankle and/or foot (344509186) Problem Other hammer toe(s) (acquired), right foot (M20.41) Active confirmed Acquired hammer toe of right foot (2710154951429376) Problem Other hammer toe(s) (acquired), left foot (M20.42) Active confirmed Acquired hammer toe of left foot (3368537955998209) PLAN OF TREATMENT Pending Test Test Name [...] X ray : Foot, left 3V 04/13/2016 38962-JOCGCMP NAIL, 6 OR MORE 10/27/2015 83238-KPHHMSF NAIL, 6 OR MORE 12/31/2015 53440-CPZPXTB NAIL, 6 OR MORE 01/12/2016 38727-QGAWMRM NAIL, 6 OR MORE 08/07/2015 11119-ZWBNYHV NAIL, 6 OR MORE 08/20/2015 80278-MWKFVHO NAIL, 6 OR MORE 02/20/2016 76410-TDHPZKN NAIL, 6 OR MORE 04/18/2017 76934-HXQSTSN NAIL, 6 OR MORE 02/07/2017 62519-OGMDKEV NAIL, 6 OR MORE 07/08/2016 87129-ZQKBBSN NAIL, 6 OR MORE 09/06/2016 41370-ZPQNSBO NAIL, 1-5 02/16/2018 29423-XADMLIQ NAIL, 1-5 05/25/2018 83477-Aityuuhh Plate 02/16/2018 88192-Jhsrtppo Plate 07/08/2016 01174- Debride <25 sq cm 06/02/2016 64255- Debride <25 sq cm 05/19/2016 23350- Debride <25 sq cm 12/06/2013 01238- Debride <25 sq cm 08/20/2015 63167- Debride <25 sq cm 05/10/2013 08906- Debride <25 sq cm 04/28/2016 18093- Debride <25 sq cm 05/13/2016 14970- Debride <25 sq cm 04/13/2016 57059-QQORICO SKIN/TISSUE 08/07/2015 79775-YHWXSME SKIN/TISSUE 08/20/2015 82812-WTXK SKIN LESIONS, OVER 4 08/20/19 16 17259-UQXR SKIN LESIONS, OVER 4 02/20/20 16 39868-SIOQ SKIN LESIONS, OVER 4 08/07/19 16 34206-HQJT SKIN LESIONS, OVER 4 10/27/19 16 32827-UUPR SKIN LESIONS, OVER 4 09/07/19 17 43126-UXOL SKIN LESIONS, OVER 4 11/09/19 17 88850-RXCN SKIN LESIONS, OVER 4 02/08/20 17 07677-YYQC SKIN LESIONS, OVER 4 07/08/19 17 47696-HBJM SKIN LESIONS, OVER 4 04/18/20 17 85976-UKLY SKIN LESIONS, OVER 4 02/17/20 18 71975-DRIG SKIN LESIONS, OVER 4 05/25/20 18 35259-MJLD SKIN LESIONS, OVER 4 08/23/19 19 15347-YHTJ SKIN LESIONS, OVER 4 11/23/19 19 27538-PAOT SKIN LESIONS, 2 TO 4 05/10/20 13 18232-VGNF SKIN LESIONS, 2 TO 4 12/07/19 14 F4134-NZVWEESL DYSTROPHIC NAILS ANY # P0655-CWTMCQDP DYSTROPHIC NAILS ANY # 35792-XTBVPOVB OF HEMATOMA/FLUID 018 Insurance Providers Payer Name Payer Address Payer Phone Subscriber Number Group Number Insured Name Patient Relationship to Insured Coverage Start Date Coverage End Date Medicare National [employer]t Sv[employer] [address] [place] [address] Moustapha Ruiz Self - patient is the insured MEDICAL (GENERAL) HISTORY Medical History History ICD Code poor circulation high blood pressure diabetic Gout measles chicken pox Surgical History Surgery Date(Month/Year) ACL right foot left foot Graft 01/1994 left middle finger Graft left foot, skin graft 08/2014 Left Foot Amputation @ [facility] [place] 06/[place]/2017 Hospitalization History Reason Date(Month/Year) [facility] - Stomach Pain was disch arged on 01/31/16 01/29/2016 [facility] [place] - right second toe infection 016 [facility] [place] - Amputation - 22 day stay 06/2017
--- NOTE | 2024-01-24 08:33 | ED_ITS ---
HPI - Skin/Abscess/Foreign Bdy General Chief complaint: Skin/Abscess/Foreign Body Stated complaint: Tailbone Cyst Time Seen by Provider: 01/24/24 08:28 Source: patient Mode of arrival: ambulatory Limitations: no limitations History of Present Illness ED Provider: DR. Abdi HPI narrative: 58-year-old male came in for evaluation abscess on the right buttock cheek. Few days of fever, chills and pain in right buttock cheek seen at urgent care yesterday was told he has abscess patient was started on doxycycline and was told to come to the ED for I&D. Related Data Home Medications ?Medication ?Instructions ?Recorded ?Confirmed allopurinol 100 mg tablet 100 mg PO DAILY 04/29/20 03/29/23 blood sugar diagnostic #10 ea 04/29/20 03/29/23 pen needle, diabetic 31 gauge x #1,200 ea 11/11/21 03/29/2311/09 (BD Ultra-Fine Short Pen Needle) insulin glargine U-300 conc 300 6 unit subcut BEDTIME 08/26/22 03/29/23 unit/mL (1.5 mL) subcutaneous pen (Toujeo SoloStar U-300 Insulin) insulin aspart U-100 100 unit/mL subcut 10/26/22 03/29/23 (3 mL) subcutaneous pen (Novolog FlexPen U-100 Insulin aspart) sevelamer carbonate 800 mg tablet 800 mg PO TID 12/09/22 03/29/23 bumetanide 1 mg tablet 1 mg PO BID 03/29/23 03/29/23 ergocalciferol (vitamin D2) 1,250 1,250 mcg PO QWEEK 01/23/24 mcg (50,000 unit) capsule Previous Rx's ?Medication ?Instructions ?Recorded flash glucose sensor (FreeStyle #2 ea 04/24/21 Juanito 14 Day Sensor kit) amlodipine 10 mg tablet 10 mg PO DAILY #30 tabs 12/09/22 carvedilol 6.25 mg tablet 6.25 mg PO Q12H #60 tabs 12/09/22 Left asjqa-xmn-opqq prosthetic #1 ea 03/29/23 omeprazole 40 mg capsule,delayed 40 mg PO DAILY #30 caps 11/30/23 release atorvastatin 10 mg tablet 10 mg PO DAILY #90 tabs 12/12/23 doxycycline hyclate 100 mg capsule 100 mg PO BID 10 days #20 caps 01/23/24 Allergies Allergy/AdvReac Type Severity Reaction Status Date / Time cephalexin [CEPHALEXIN] Allergy Intermediate UNABLE TO Verified 01/24/24 07:09 MOVE ENTIRE BODY, chills and fever, nausea, chills, fever, and nausea metformin [METFORMIN] AdvReac Intermediate ADVISED Verified 01/24/24 07:09 NOT TO TAKE ANYMORE,SHAKEY,STOMACH PAINS, stomach upset, stomach upset Review of Systems Review of Systems: All other systems are reviewed and are negative Constitutional: Reports as per HPI and Reports no additional constitutional complaints Eyes: Reports as per HPI and Reports no additional eye complaints Reports system reviewed and no additional complaints, except as documented Cardiovascular: Reports as per HPI and Reports no additional cardiovascular complaints Respiratory: Reports as per HPI and Reports no additional respiratory complaints Gastrointestinal: Reports as per HPI and Reports no additional gastrointestinal complaints Genitourinary: Reports no additional female genitourinary complaints Musculoskeletal: Reports no additional musculoskeletal complaints Skin/Breast: Reports system reviewed and no additional complaints, except as docu Psychiatric: Reports no additional psychiatric complaints Endocrine: Reports no additional endocrine complaints Hematologic/Lymphatic: Reports no additional hematologic/lymphatic complaints Allergic/Immunologic: Reports no additional allergic/immunologic complaints Reports system reviewed and no additional complaints, except as documented and Reports Abnormal speech present [facility] Past Medical History Medical History Difficulty swallowing Epigastric pain syndrome Chronic right shoulder pain Spinal stenosis of lumbosacral region with radiculopathy Vitamin D deficiency Osteomyelitis of toe of right foot Chronic kidney disease, stage 5 Chronic low back pain Pericardial effusion Cellulitis of right lower leg Major depressive disorder Diabetes mellitus with retinopathy Diabetes mellitus with diabetic nephropathy, with long-term current use of insulin Dyslipidemia Diabetic gastroparesis associated with type 2 diabetes mellitus Morbid obesity Celiac disease Diabetic neuropathy associated with type 2 diabetes mellitus Non-toxic multinodular goiter Hypertension Renal calculi Gastroparesis Hypercholesterolemia Peripheral vascular disease Surgical History Status post amputation of lesser toe of right foot S/P laparoscopic sleeve gastrectomy Hx of colonoscopy History of below-knee amputation (~06/28/17) History of lobectomy of thyroid (~03/25/15) History of esophagogastroduodenoscopy (EGD) (~09/26/13) History of repair of ACL (~2004) History of skin graft (~1993) Family History Family History Father Hypertension Diabetes Mother No problems noted. Sister Mental health disorder Social History Social History Household Members: Spouse Housing: Apartment Do you presently have visiting nurse or other home services: No Alcohol intake: former Comment: refuses alarm Patient Tobacco Use Status: Never used Tobacco Smoked in Last 30 Days: No e-Cigarette/Vaping Use: Never Used Use of substances other than those prescribed or required for medical reasons: No Advance Directives: No service: No Current occupational status: disabled Cognitive needs: No Hearing needs: No Vision needs: No Physical Exam Vital Signs: Vital Signs: Last Vital Signs Temp 98.4 F 01/24/24 07:04 Pulse 80 01/24/24 07:04 Resp 18 01/24/24 07:04 BP 102/56 L 01/24/24 07:04 Pulse Ox 96 01/24/24 07:04 O2 Del Method Room Air 01/24/24 07:04 BMI result Body Mass Index 39.8 Vital signs have been reviewed and appear to be correct. Blood pressure elevated. Heart rate normal. Respiratory rate normal. Temperature normal. Oxygen saturation normal. Appearance: Alert. Oriented X3. No acute distress. Head: Normal external exam. Normocephalic. Atraumatic. No Chavarria signs noted. No raccoon eyes noted Eyes: PERRLA. EOMI. Conjunctiva and sclera normal. Eyelids normal. ENT: TM's Normal. Pharynx normal. Uvula midline. Moist mucous membranes. No trismus noted. No drooling noted. No muffled voice noted. Neck: Normal inspection. Neck supple. FROM. No adenopathy. Thyroid Normal. No meningeal signs. No neck mass noted. CVS: Normal heart rate and rhythm. Heart sound normal. No murmurs noted. Pulses normal throughout. Respiratory: No respiratory distress. Painless inspiration. Breath sounds normal. No wheezes/rales/rhonchi noted. Chest nontender. No accessory muscle usage noted or decreased air movement noted. Abdomen: Soft and nontender. Bowel sounds normal in all 4 quadrants. No distention noted. No organomegaly noted. No visible injury noted. Buttock: 5 x 4 cm area of redness and fluctuation on lateral right buttock cheek 7 cm lateral to rectal verge. Back: No CVA tenderness. Full range of motion noted. Skin: Skin warm and dry. Normal skin color. Normal skin turgor. No rashes/lesions/lacerations noted. Extremities: No lower extremity edema. Extremities exhibit normal range of motion. Extremities nontender. Neuro: Oriented X 3. Cranial nerve exam: II-XII are grossly intact No motor deficit. No sensory deficit. Reflexes normal. Medical Decision Making Differential Diagnosis Differential Diagnoses: The differential diagnosis associated with the presentation includes (Buttock abscess, cellulitis.) Admission/Observation Consideration of admission/observation: Escalation of care including admission/observation considered Procedures Abscess I/D Site: other (Right buttock) Side (if applicable): right Local Anesthetic: lidocaine 1% Amount of anesthesia used (mL): 10 Technique: incised with blade Amount of fluid expressed (mL): 4 Sent for culture/gram staining?: No Irrigation: No Packing used?: none Discharge Plan Discharge Clinical Impression: Cellulitis and abscess of buttock Patient Disposition: Home, Self-Care Instructions: Incision and Drainage (ED) Additional Instructions: Continue with doxycycline until finished Prescriptions: No Action (DME) FreeStyle Juanito 14 Day Sensor Kit See Rx Instructions .Route Qty: 2 0RF Rx Instructions: As directed carvedilol 6.25 mg tablet 6.25 mg PO Q12H Qty: 60 0RF Rx Instructions: must administer with a meal/food amlodipine 10 mg tablet 10 mg PO DAILY Qty: 30 0RF atorvastatin 10 mg tablet 10 mg PO DAILY Qty: 90 1RF (DME) pen needle, diabetic [BD Ultra-Fine Short Pen Needle] 31 gauge x 5/16 needle See Rx Instructions subcut QID Qty: 1200 Rx Instructions: As directed Bar SoloStar U-300 Insulin 300 unit/mL (1.5 mL) insulin pen 6 unit subcut BEDTIME bumetanide 1 mg tablet 1 mg PO BID sevelamer carbonate 800 mg tablet 800 mg PO TID (DME) Left [id number]-[id number]-vkgb prosthetic See Rx Instructions .Route .MEDSUPPLY Qty: 1 0RF Rx Instructions: As directed ergocalciferol (vitamin D2) 1,250 mcg (50,000 unit) capsule 1,250 mcg PO QWEEK doxycycline hyclate 100 mg capsule 100 mg PO BID 10 Days Qty: 20 0RF omeprazole 40 mg capsule,delayed release(DR/EC) 40 mg PO DAILY Qty: 30 2RF Rx Instructions: Take an hour before eating once a day allopurinol 100 mg tablet 100 mg PO DAILY (DME) blood sugar diagnostic Strip See Rx Instructions Not Applicable .MEDSUPPLY Qty: 10 Rx Instructions: As directed insulin aspart U-100 [Novolog FlexPen U-100 Insulin] 100 unit/mL (3 mL) insulin pen subcut Referrals: Shereen Cortes MD [Primary Care Provider] - Print Language: Trinidadian
[2024-01-24] MEDS: Lidocaine HCl 1 % MPF 5 ML VIAL 10 ML SUBCUT (09:00)
[2024-01-24 10:04] VITALS: BP 102/56; PULSE 80; RESP 18; TEMP 36.9; O2SAT 96
== END 2024-01-24 10:04 | disposition home or self-care (01) ==
PROVIDERS: Emergency Provider Emergency Medicine; PCP Internal Medicine
DX: L02.31 Cutaneous abscess of buttock (principal); L03.317 Cellulitis of buttock
CPT/HCPCS: 10060; 99284

== ENCOUNTER 2024-01-26 13:48 | Emergency (ER) | payer OTHER, SELFPAY ==
[2024-01-26 14:00] VITALS: BP 112/68; BP 132/46; PULSE 74; PULSE 98; RESP 18; TEMP 36.5; O2SAT 97; O2SAT 99; BMI 38.2
--- NOTE | 2024-01-26 14:12 | ED.MALEGU ---
HPI - Male Genitourinary General Chief complaint: Urogenital-Male Stated complaint: DIFFICULTY URINATING X2 DAYS PER EMS Time Seen by Provider: 01/26/24 14:03 Source: patient Mode of arrival: ambulatory History of Present Illness HPI Narrative: 58-year-old male past medical history end-stage renal disease on dialysis epigastric pain shoulder pain osteomyelitis of his foot leading to AKA of the left leg gastroparesis diabetes with diabetic neuropathy monitored use of insulin depression he has a penile implant as well. He states he has been able to urinate for the past 24 hours he is in moderate amount of pain he has had a Flores and leg bag in the past he denies fevers chills cough nausea vomiting or diarrhea. Related Data Home Medications ?Medication ?Instructions ?Recorded ?Confirmed allopurinol 100 mg tablet 100 mg PO DAILY 04/29/20 03/29/23 blood sugar diagnostic #10 ea 04/29/20 03/29/23 pen needle, diabetic 31 gauge x #1,200 ea 11/11/21 03/29/2311/09 (BD Ultra-Fine Short Pen Needle) insulin glargine U-300 conc 300 6 unit subcut BEDTIME 08/26/22 03/29/23 unit/mL (1.5 mL) subcutaneous pen (Toujeo SoloStar U-300 Insulin) insulin aspart U-100 100 unit/mL subcut 10/26/22 03/29/23 (3 mL) subcutaneous pen (Novolog FlexPen U-100 Insulin aspart) sevelamer carbonate 800 mg tablet 800 mg PO TID 12/09/22 03/29/23 bumetanide 1 mg tablet 1 mg PO BID 03/29/23 03/29/23 ergocalciferol (vitamin D2) 1,250 1,250 mcg PO QWEEK 01/23/24 mcg (50,000 unit) capsule Previous Rx's ?Medication ?Instructions ?Recorded flash glucose sensor (FreeStyle #2 ea 04/24/21 Juanito 14 Day Sensor kit) amlodipine 10 mg tablet 10 mg PO DAILY #30 tabs 12/09/22 carvedilol 6.25 mg tablet 6.25 mg PO Q12H #60 tabs 12/09/22 Left agelt-zfp-ssjt prosthetic #1 ea 03/29/23 omeprazole 40 mg capsule,delayed 40 mg PO DAILY #30 caps 11/30/23 release atorvastatin 10 mg tablet 10 mg PO DAILY #90 tabs 12/12/23 doxycycline hyclate 100 mg capsule 100 mg PO BID 10 days #20 caps 01/23/24 Allergies Allergy/AdvReac Type Severity Reaction Status Date / Time cephalexin [CEPHALEXIN] Allergy Intermediate UNABLE TO Verified 01/26/24 14:03 MOVE ENTIRE BODY, chills and fever, nausea, chills, fever, and nausea metformin [METFORMIN] AdvReac Intermediate ADVISED Verified 01/26/24 14:03 NOT TO TAKE ANYMORE,SHAKEY,STOMACH PAINS, stomach upset, stomach upset Review of Systems Review of Systems: Review of systems: General: Patient denies any fever chills recent illness or falls Musculoskeletal: Denies back pain or body aches or other injuries HEENT: denies headache, runny nose, ear pain Respiratory: denies shortness of breath, cough Cardiovascular: no chest pain or palpitations : Unable to urinate denies dysuria, frequency Abdomen: no nausea vomiting denies abdominal pain Extremities: no swelling, no pain Skin: no diaphoresis Yes all other systems are reviewed and are negative [facility] Past Medical History Medical History Difficulty swallowing Epigastric pain syndrome Chronic right shoulder pain Spinal stenosis of lumbosacral region with radiculopathy Vitamin D deficiency Osteomyelitis of toe of right foot Chronic kidney disease, stage 5 Chronic low back pain Pericardial effusion Cellulitis of right lower leg Major depressive disorder Diabetes mellitus with retinopathy Diabetes mellitus with diabetic nephropathy, with long-term current use of insulin Dyslipidemia Diabetic gastroparesis associated with type 2 diabetes mellitus Morbid obesity Celiac disease Diabetic neuropathy associated with type 2 diabetes mellitus Non-toxic multinodular goiter Hypertension Renal calculi Gastroparesis Hypercholesterolemia Peripheral vascular disease Surgical History Status post amputation of lesser toe of right foot S/P laparoscopic sleeve gastrectomy Hx of colonoscopy History of below-knee amputation (~06/28/17) History of lobectomy of thyroid (~03/25/15) History of esophagogastroduodenoscopy (EGD) (~09/26/13) History of repair of ACL (~2004) History of skin graft (~1993) Family History Family History Father Hypertension Diabetes Mother No problems noted. Sister Mental health disorder Social History Social History Household Members: Spouse Housing: Apartment Do you presently have visiting nurse or other home services: No Alcohol intake: former Comment: refuses alarm Patient Tobacco Use Status: Never used Tobacco e-Cigarette/Vaping Use: Never Used Advance Directives: No Advance Directives Information Provided: Yes Do you have a plan to hurt others: No Plan service: No Current occupational status: disabled Cognitive needs: No Hearing needs: No Vision needs: No Physical Exam Vital Signs: Vital Signs: Last Vital Signs Temp 97.7 F 01/26/24 14:00 Pulse 74 01/26/24 14:00 Resp 18 01/26/24 14:00 BP 132/46 L 01/26/24 14:00 Pulse Ox 97 01/26/24 14:00 O2 Del Method Room Air 01/26/24 14:00 BMI result Body Mass Index 38.2 General: Well-appearing well-nourished in no signs of distress HEENT: Normocephalic atraumatic Neck: No signs of JVD, no masses no tenderness or lymphadenopathy Cardiovascular: Regular rate and rhythm Respiratory: Clear to auscultation bilaterally Abdomen: Soft nontender distended palpable bladder Extremities: Normal pedal pulses no signs of edema Skin: Dry warm no rashes Back: No tenderness full ROM Course Course Course Narrative: Patient sent for urine patient feeling much better after getting Flores placed I will discharge home at this time. Medications Administered Discontinued Medications Generic Name Dose Route Start Last Admin Trade Name Dung PRN Reason Stop Dose Admin Lidocaine HCl 10 ml 01/26/24 14:11 01/26/24 14:22 Lidocaine Hcl 2 % Urojet 10 Ml Jel.Pf.Mikey TOPICAL 01/26/24 14:12 10 ml ONCE ONE Administration Medical Decision Making Medical Decision Making [facility] Narrative: Patient has had foot leg bag in the past I will place full the patient follow up with Urology I will check a urinalysis well. Differential Diagnosis Differential Diagnoses: The differential diagnosis associated with the presentation includes Unable to urinate urinary retention UTI Lab Data [facility] Lab Attestation statement: I reviewed the patient's lab results. Labs: Lab Results 01/26/24 Range/Units 14:52 Urine Color Yellow Urine Appearance Cloudy Urine pH 6.0 (5.0-9.0) Ur Specific [place] 1.025 (1.005-1.025) Urine Protein 300 (3+) H (Neg-Trace) mg/dL Urine Glucose (UA) 500 H (Negative) mg/dL Urine Ketones Negative (Negative) mg/dL Urine Blood Negative (Negative) Urine Nitrite Negative (Negative) Ur Leukocyte Esterase Negative (Negative) External Record Review External record reviewed: Inpatient record, Office record and Outpatient record Chronic Conditions Patient?s care impacted by: Diabetes and Hypertension Core Measures AMI core measures followed: Yes Discharge Plan Discharge Clinical Impression: Acute urinary retention Patient Disposition: Home, Self-Care Instructions: Urinary Retention in Men (ED), Flores Catheter Placement and Care (ED) Additional Instructions: You were seen today for the inability urinate. Replace Flores catheter and checked her urine there is no signs of infection. Please call follow-up with your doctor if you have any other concerns please return to the emergency department. Prescriptions: No Action (DME) FreeStyle Juanito 14 Day Sensor Kit See Rx Instructions .Route Qty: 2 0RF Rx Instructions: As directed carvedilol 6.25 mg tablet 6.25 mg PO Q12H Qty: 60 0RF Rx Instructions: must administer with a meal/food amlodipine 10 mg tablet 10 mg PO DAILY Qty: 30 0RF atorvastatin 10 mg tablet 10 mg PO DAILY Qty: 90 1RF (DME) pen needle, diabetic [BD Ultra-Fine Short Pen Needle] 31 gauge x 5/16 needle See Rx Instructions subcut QID Qty: 1200 Rx Instructions: As directed Toana SoloStar U-300 Insulin 300 unit/mL (1.5 mL) insulin pen 6 unit subcut BEDTIME bumetanide 1 mg tablet 1 mg PO BID sevelamer carbonate 800 mg tablet 800 mg PO TID (DME) Left klmck-fva-atdx prosthetic See Rx Instructions .Route .MEDSUPPLY Qty: 1 0RF Rx Instructions: As directed ergocalciferol (vitamin D2) 1,250 mcg (50,000 unit) capsule 1,250 mcg PO QWEEK doxycycline hyclate 100 mg capsule 100 mg PO BID 10 Days Qty: 20 0RF omeprazole 40 mg capsule,delayed release(DR/EC) 40 mg PO DAILY Qty: 30 2RF Rx Instructions: Take an hour before eating once a day allopurinol 100 mg tablet 100 mg PO DAILY (DME) blood sugar diagnostic Strip See Rx Instructions Not Applicable .MEDSUPPLY Qty: 10 Rx Instructions: As directed insulin aspart U-100 [Novolog FlexPen U-100 Insulin] 100 unit/mL (3 mL) insulin pen subcut Print Language: Kinyarwanda
[2024-01-26] MEDS: Lidocaine HCl 2 % Urojet 10 ML JEL.PF.APP TOPICAL (14:22)
--- OUTSIDE RECORDS SUMMARY | 2024-01-26 14:29 | XMS_ITS | Patient Health Record ---
Author Organization [facility] Address [address] [place] [address] Care Team Providers Care Sous Chef Kitchen Manager Name Role Phone Shereen Cortes MD Primary Care Provider Donte Llamas Unavailable [phone] ALLERGIES Allergen (clinical drug ingredient) Drug/Non Drug [...] malignant neoplasm of colon (Z12.11) Active confirmed 769076259 Problem Abdominal bloating (R14.0) Active confirmed 626177005 Problem Abdominal pain, epigastric (R10.13) Active confirmed 55668423 Problem Abdominal pain, left upper quadrant (R10.12) Active confirmed 313067569 Problem Small intestinal bacterial overgrowth (K63.89) Active confirmed 034817489 PLAN OF TREATMENT Pending Test Test Name [...] Provider Name:Donte Ching , 03/09/2024 02:40:00 PM, [address] [place] [address], [address], [place], [address], Insurance Providers Payer Name Payer Address Payer Phone Subscriber Number Group Number Insured Name Patient Relationship to Insured Coverage Start Date Coverage End Date [facility] [address] [place] [address] [id number] PAKO MEDINA Self - patient is the insured MEDICAL (GENERAL) HISTORY Medical History History ICD Code IDDM--sees Dr. Gaytan Hypertension Denies OK,CVA,Lung disease,renal disease Hyperlipidemia Neuropathy in LE's Sleep [...]
--- OUTSIDE RECORDS SUMMARY | 2024-01-26 14:29 | XMS_ITS | Patient Health Record ---
[facility] Address [address] [facility] [place] [address] Care Team Providers Care License Clerk Name Role Phone Sebastian CASTRO, Shereen Goodwin Primary Care Provider Un available Jacobo Rabago Unavailable [phone] ALLERGIES Allergen (clinical drug ingredient) Drug/Non Drug [...] swati osteoarthritis of the ankle and/or foot (819662164) Problem Primary osteoarthrit is, left ankle and foot (M19.072) Active confirmed Localized, prim swati osteoarthritis of the ankle and/or foot (376819337) Problem Other hammer toe(s) (acquired), right foot (M20.41) Active confirmed Acquired hammer toe of right foot (2225552295461541) Problem Other hammer toe(s) (acquired), left foot (M20.42) Active confirmed Acquired hammer toe of left foot (0884955683993363) PLAN OF TREATMENT Pending Test Test Name [...] X ray : Foot, left 3V 04/13/2016 11184-ZTKTISS NAIL, 6 OR MORE 10/27/2015 53420-LUBMGRF NAIL, 6 OR MORE 12/31/2015 97635-KDVBWJK NAIL, 6 OR MORE 01/12/2016 45525-REJEANG NAIL, 6 OR MORE 08/07/2015 32225-JCGWDTD NAIL, 6 OR MORE 08/20/2015 15173-VCUWCAN NAIL, 6 OR MORE 02/20/2016 05218-FGFBNXO NAIL, 6 OR MORE 04/18/2017 89096-LSCBEIO NAIL, 6 OR MORE 02/07/2017 08687-NTXQHGE NAIL, 6 OR MORE 07/08/2016 93429-ZFELGZD NAIL, 6 OR MORE 09/06/2016 47701-WJEBSHI NAIL, 1-5 02/16/2018 62723-BDZEKLF NAIL, 1-5 05/25/2018 21553-Rdquyfbm Plate 02/16/2018 34678-Echjjrrq Plate 07/08/2016 36429- Debride <25 sq cm 06/02/2016 97517- Debride <25 sq cm 05/19/2016 01648- Debride <25 sq cm 12/06/2013 62671- Debride <25 sq cm 08/20/2015 45800- Debride <25 sq cm 05/10/2013 69926- Debride <25 sq cm 04/28/2016 35575- Debride <25 sq cm 05/13/2016 03305- Debride <25 sq cm 04/13/2016 20600-VUBUGTH SKIN/TISSUE 08/07/2015 89624-TEAIMWP SKIN/TISSUE 08/20/2015 11169-ULTL SKIN LESIONS, OVER 4 08/20/19 16 67336-TOMN SKIN LESIONS, OVER 4 02/20/20 16 51888-GXTG SKIN LESIONS, OVER 4 08/07/19 16 57956-SRFC SKIN LESIONS, OVER 4 10/27/19 16 34391-WAYQ SKIN LESIONS, OVER 4 09/07/19 17 48581-LYQQ SKIN LESIONS, OVER 4 11/09/19 17 39354-HUVX SKIN LESIONS, OVER 4 02/08/20 17 23187-OEJT SKIN LESIONS, OVER 4 07/08/19 17 42493-WLQF SKIN LESIONS, OVER 4 04/18/20 17 97870-MOWZ SKIN LESIONS, OVER 4 02/17/20 18 33416-PIIJ SKIN LESIONS, OVER 4 05/25/20 18 52259-KSFP SKIN LESIONS, OVER 4 08/23/19 19 95536-UWWV SKIN LESIONS, OVER 4 11/23/19 19 44456-TPUD SKIN LESIONS, 2 TO 4 05/10/20 13 05035-HZYY SKIN LESIONS, 2 TO 4 12/07/19 14 T2879-ZVWZUJHD DYSTROPHIC NAILS ANY # P2881-IDTJLJGH DYSTROPHIC NAILS ANY # 81860-KABZLWVU OF HEMATOMA/FLUID 018 Insurance Providers Payer Name Payer Address Payer Phone Subscriber Number Group Number Insured Name Patient Relationship to Insured Coverage Start Date Coverage End Date [employer] [address] [facility] [place] [address] Moustapha Ruiz Self - patient is the insured MEDICAL (GENERAL) HISTORY Medical History History ICD Code poor circulation high blood pressure diabetic Gout measles chicken pox Surgical History Surgery Date(Month/Year) ACL right foot left foot Graft 01/1994 left middle finger Graft left foot, skin graft 08/2014 Left Foot Amputation @ [facility] 06/28/2017 Hospitalization History Reason Date(Month/Year) [facility] - Stomach Pain was disch arged on 01/31/16 01/29/2016 [facility] - right second toe infection 016 [facility] - Amputation - 22 day stay 06/2017
[2024-01-26 14:59] LABS: Appearance Urine Cloudy; Color Urine Yellow; Glucose Urine UA 500 mg/dL (Negative); Leukocyte Esterase Urine Negative (Negative); Nitrite Urine Negative (Negative); Specific Gravity - Urine 1.025 (1.005-1.025); UMIC TRIGGER UACC YES; Urine Blood Negative (Negative); Urine Ketones Negative (Negative); Urine Protein 300 (3+) mg/dL (Neg-Trace)
[2024-01-26 15:17] LABS: Bacteria Urine None Seen (None Seen); Granular Casts Urine Present; RBC Urine 0-2 /HPF (0-2); WBC Urine 0-5 /HPF (0-5)
[2024-01-26 15:46] VITALS: BP 154/87; PULSE 84; RESP 19; TEMP 36.3
[2024-01-26 15:55] VITALS: BP 154/87; PULSE 84; RESP 19; TEMP 36.6; O2SAT 97
== END 2024-01-26 15:56 | disposition home or self-care (01) ==
PROVIDERS: Emergency Provider Student in an Organized Health Care Education/Training Program; PCP Internal Medicine
DX: R33.9 Retention of urine, unspecified (principal); E11.22 Type 2 diabetes mellitus with diabetic chronic kidney disease; I12.0 Hypertensive chronic kidney disease with stage 5 chronic kidney disease or end stage renal disease; N18.6 End stage renal disease; Z99.2 Dependence on renal dialysis; E78.5 Hyperlipidemia, unspecified; Z79.4 Long term (current) use of insulin; Z79.899 Other long term (current) drug therapy; Z79.02 Long term (current) use of antithrombotics/antiplatelets
CPT/HCPCS: 51702; 81001; 99284; 99285

== ENCOUNTER 2024-01-27 11:26 | Emergency (ER) | payer OTHER, SELFPAY ==
--- NOTE | ~2024-01-27 | CT_ITS ---
EXAMINATION: CT ABDOMEN AND PELVIS WITHOUT CONTRAST CLINICAL INFORMATION: Rectal abscess. COMPARISON: 08/07/2021 TECHNIQUE: Multidetector volumetric imaging was performed from the superior aspect of the liver through the pubic symphysis. Sagittal and coronal reformatted images were obtained on the technologist's workstation. This CT examination was performed using dose optimization techniques as appropriate, variously including the following: *Automated exposure control *Adjustment of mA and/or kV according to patient size (this includes techniques or standardized protocols for targeted exams where dose is matched to indication/reason for exam; i.e. extremities or head) *Use of iterative reconstruction technique DLP: 2121 mGy-cm FINDINGS: There is moderate ascites. Exophytic 1.4 cm lower pole left renal cyst. 1.1 cm lower pole right renal cyst. No further imaging follow-up is needed. Distal abdominal aorta is of normal caliber. Imaged loops of small and large bowel are nonobstructed. Urinary bladder is decompressed by Flores catheter. Bilateral fat-containing inguinal hernias. Drexel device for penile implant is located in the right lower quadrant that appears partially decompressed. The prostate gland and seminal vesicles are within normal limits. There is marked infiltration of the perineal and gluteal subcutaneous fat. Few foci of gas are identified within the soft tissues. There is a linear track within the right posterior perineum. Evaluation is limited by the lack of intravenous contrast. There is skin thickening along the cleft. CT/CT abdomen pelvis wo IV con IMPRESSION: Marked infiltration of the perineal and gluteal subcutaneous fat. Few foci of gas are identified within the soft tissues. There is a linear track within the right posterior perineum. Evaluation is limited by the lack of intravenous contrast. There is skin thickening along the cleft. Findings represent cellulitis at a minimum though the presence of soft tissue gas is concerning for deeper more aggressive infection.
--- NOTE | 2024-01-27 11:33 | ED_ITS ---
HPI - Skin/Abscess/Foreign Bdy General Chief complaint: Skin/Abscess/Foreign Body Stated complaint: cyst Time Seen by Provider: 01/27/24 12:05 History of Present Illness HPI narrative: Dialysis patient with nightly peritoneal dialysis complains of gluteal and rectal pain He had an I and D of a gluteal abscess 3 days ago, pain in the area is increasing and is now severe Also he had an episode of urinary retention yesterday and a urinary catheter was placed yesterday He denies fever chills he denies abdominal pain no nausea or vomiting Related Data Home Medications ?Medication ?Instructions ?Recorded ?Confirmed allopurinol 100 mg tablet 100 mg PO DAILY 04/29/20 03/29/23 blood sugar diagnostic #10 ea 04/29/20 03/29/23 pen needle, diabetic 31 gauge x #1,200 ea 11/11/21 03/29/2311/09 (BD Ultra-Fine Short Pen Needle) insulin glargine U-300 conc 300 6 unit subcut BEDTIME 08/26/22 03/29/23 unit/mL (1.5 mL) subcutaneous pen (Toujeo SoloStar U-300 Insulin) insulin aspart U-100 100 unit/mL subcut 10/26/22 03/29/23 (3 mL) subcutaneous pen (Novolog FlexPen U-100 Insulin aspart) sevelamer carbonate 800 mg tablet 800 mg PO TID 12/09/22 03/29/23 bumetanide 1 mg tablet 1 mg PO BID 03/29/23 03/29/23 ergocalciferol (vitamin D2) 1,250 1,250 mcg PO QWEEK 01/23/24 mcg (50,000 unit) capsule Previous Rx's ?Medication ?Instructions ?Recorded flash glucose sensor (FreeStyle #2 ea 04/24/21 Juanito 14 Day Sensor kit) amlodipine 10 mg tablet 10 mg PO DAILY #30 tabs 12/09/22 carvedilol 6.25 mg tablet 6.25 mg PO Q12H #60 tabs 12/09/22 Left vyhay-chi-whan prosthetic #1 ea 03/29/23 omeprazole 40 mg capsule,delayed 40 mg PO DAILY #30 caps 11/30/23 release atorvastatin 10 mg tablet 10 mg PO DAILY #90 tabs 12/12/23 doxycycline hyclate 100 mg capsule 100 mg PO BID 10 days #20 caps 01/23/24 Allergies Allergy/AdvReac Type Severity Reaction Status Date / Time cephalexin [CEPHALEXIN] Allergy Intermediate UNABLE TO Verified 01/27/24 11:39 MOVE ENTIRE BODY, chills and fever, nausea, chills, fever, and nausea metformin [METFORMIN] AdvReac Intermediate ADVISED Verified 01/27/24 11:39 NOT TO TAKE ANYMORE,SHAKEY,STOMACH PAINS, stomach upset, stomach upset PMFSH Past Medical History Source: nursing notes reviewed Medical History Difficulty swallowing Epigastric pain syndrome Chronic right shoulder pain Spinal stenosis of lumbosacral region with radiculopathy Vitamin D deficiency Osteomyelitis of toe of right foot Chronic kidney disease, stage 5 Chronic low back pain Pericardial effusion Cellulitis of right lower leg Major depressive disorder Diabetes mellitus with retinopathy Diabetes mellitus with diabetic nephropathy, with long-term current use of insulin Dyslipidemia Diabetic gastroparesis associated with type 2 diabetes mellitus Morbid obesity Celiac disease Diabetic neuropathy associated with type 2 diabetes mellitus Non-toxic multinodular goiter Hypertension Renal calculi Gastroparesis Hypercholesterolemia Peripheral vascular disease Surgical History Status post amputation of lesser toe of right foot S/P laparoscopic sleeve gastrectomy Hx of colonoscopy History of below-knee amputation (~06/28/17) History of lobectomy of thyroid (~03/25/15) History of esophagogastroduodenoscopy (EGD) (~09/26/13) History of repair of ACL (~2004) History of skin graft (~1993) Family History Family History Father Hypertension Diabetes Mother No problems noted. Sister Mental health disorder Social History Social History Household Members: Spouse Housing: Apartment Do you presently have visiting nurse or other home services: No Alcohol intake: former Comment: refuses alarm Patient Tobacco Use Status: Never used Tobacco Smoked in Last 30 Days: No e-Cigarette/Vaping Use: Never Used Advance Directives: No service: No Current occupational status: disabled Cognitive needs: No Hearing needs: No Vision needs: No Physical Exam 2 Vital Signs: Vital Signs: Last Vital Signs Temp 98.3 F 01/27/24 17:07 Pulse 76 01/27/24 17:07 Resp 16 01/27/24 17:07 BP 133/83 01/27/24 17:07 Pulse Ox 94 01/27/24 17:07 O2 Del Method Room Air 01/27/24 17:07 BMI result Body Mass Index 38.2 General appearance is no acute distress but very uncomfortable Neck is supple Respiratory no distress Chest is clear to auscultation bilateral Abdomen soft nontender Skin exam the left gluteal area is very indurated red swollen and tender, the previous incision done 3 days ago is closed, there is no discharge coming from the wound Rectal exam rectal exam was very tender and painful, no mass was palpated but exam was limited by patient discomfort Extremities he has a left leg amputation Course Course Course Narrative: This is an RME performed by Robin Lyon CNP: Additional HPI, ROS, PE not included below will be deferred to primary provider. Patient is a 58-year-old male who presents emergency department for evaluation. He states 2 days ago who seen in the emergency department for evaluation of a right leg abscess. States he had an incision and drainage, however the pain continues to persist and he feels as though it is increasing in size, more painful, and he is unable to sit. He reports compliance with doxycycline. Plan: Placed in waiting room pending bed availability. I&D of right-sided gluteal abscess Cleansed with Betadine Anesthesia was 10 cc of 1% lidocaine A 1.5 cm incision was made with an 11 blade Probed deeply with forceps but minimal discharge of pus There was no abscess that I could reach with the forceps, so I consulted Dr. Velasco of surgery who advised get noncontrast CT scan which showed findings consistent with cellulitis and possible small abscess but was limited by lack of contrast CBC showed a white count of 17.4, hemoglobin 12.6, hematocrit 36 which are consistent with his priors, platelets were 268, patient's vitals remained stable very unlikely that he has sepsis, he is calm and cooperative throughout visit Chemistry showed creatinine 6.59, BUN 47, he does his peritoneal dialysis every night CT scan showed marked infiltration of the perineal and gluteal subcutaneous fat and a few foci of gas, as well as a linear track within the right posterior perineum consistent with cellulitis and possibly a deeper infection Patient was started on Zosyn 3.375 for 1st dose antibiotic Patient was to be admitted to surgery but because of peritoneal dialysis he could not come to this hospital as we do not do peritoneal dialysis I called [facility] transfer line and he was accepted by the hospitalist service pending a bed, he was accepted by Dr. Farrar. The plan is that he will be held in our emergency room and they will call from patient placement when they have a bed and tell us what his destination is Medications Administered Generic Name Dose Route Start Last Admin Trade Name Freq PRN Reason Stop Dose Admin Sodium Chloride 3 ml 01/27/24 16:00 01/27/24 16:00 0.9 % Sodium Chloride Flush 3 Ml Syringe IVFLUSH 3 ml QSHIFT SUSANNA Administration Discontinued Medications Generic Name Dose Route Start Last Admin Trade Name Freq PRN Reason Stop Dose Admin Piperacillin Sod/Tazobactam 50 mls @ 100 mls/hr 01/27/24 17:44 01/27/24 18:02 Sod 3.375 gm/ Sodium Chloride IV 01/27/24 18:13 100 mls/hr ONCE ONE Administration Lidocaine HCl 5 ml 01/27/24 12:31 01/27/24 12:45 Lidocaine Hcl 1 % Mpf 5 Ml Vial SUBCUT 01/27/24 12:32 5 ml ONCE ONE Administration Lidocaine HCl 5 ml 01/27/24 12:31 01/27/24 12:45 Lidocaine Hcl 1 % Mpf 5 Ml Vial SUBCUT 01/27/24 12:32 5 ml ONCE ONE Administration Lidocaine HCl 5 ml 01/27/24 12:31 01/27/24 12:45 Lidocaine Hcl 1 % Mpf 5 Ml Vial SUBCUT 01/27/24 12:32 5 ml ONCE ONE Administration Morphine Sulfate 4 mg 01/27/24 14:36 01/27/24 14:41 Morphine Sulfate 4 Mg/Ml Cartridge IM 01/27/24 14:37 4 mg ONCE ONE Administration Protocol Medical Decision Making Lab Data [facility] Lab Attestation statement: I reviewed the patient's lab results. 01/27/24 15:59 01/27/24 16:03 Labs: Lab Results 01/27/24 01/27/24 01/27/24 Range/Units 14:34 15:25 15:59 WBC 17.4 H (4.8-10.8) X10*3/uL RBC 3.78 L (4.60-5.80) X10*6/uL Hgb 12.6 L (14.0-18.0) g/dl Hct 36.0 L (42.0-52.0) % MCV 95.2 (80.0-98.0) fL MCH 33.3 H (27.0-33.0) pg MCHC 35.0 (31.0-36.0) g/dl RDW 14.7 (11.0-16.0) % Plt Count 268 D (160-400) X10*3/uL MPV 9.5 (9.4-12.4) fL Immature Gran % (Auto) 0.7 H (0.0-0.4) % Neut % (Auto) 86.6 H (45-73) % Lymph % (Auto) 6.6 L (20-40) % Hughes % (Auto) 5.6 (2-11) % Eos % (Auto) 0.3 (0-4) % Baso % (Auto) 0.2 (0-2) % Lymph # (Auto) 1.2 (1.2-4.9) X10*3/uL Hughes # (Auto) 1.0 (0.1-1.2) X10*3/uL Eos # (Auto) 0.1 (0.0-0.4) X10*3/uL Baso # (Auto) 0.0 (0.0-0.2) X10*3/uL Abs Immat Gran (auto) 0.13 H (0.00-0.03) X10*3/uL Absolute Neuts (auto) 15.0 H (2.0-8.3) x10*3/uL Absolute Nucleated RBC 0.000 (0.0-0.012) X10*3/uL Nucleated RBC % (auto) 0.0 (0.0-0.2) /100WBC Sodium (135-145) mmol/L Potassium (3.3-5.1) mmol/L Chloride (96-108) mmol/L Carbon Dioxide (22-29) mmol/L Anion Gap (12-20) BUN (9-16) mg/dL Creatinine (0.5-1.4) mg/dL Estim Creat Clear Calc Estimated GFR POC Glucose 49 L* 76 (60-115) mg/dL Random Glucose (60-115) mg/dL Calcium (8.4-10.2) mg/dL Total Bilirubin (0.0-1.0) mg/dL AST (5-37) U/L ALT (0-40) U/L Alkaline Phosphatase (39-117) U/L Total Protein (6.5-8.0) g/dL Albumin (3.5-5.0) g/dL 01/27/24 Range/Units 16:03 WBC (4.8-10.8) X10*3/uL RBC (4.60-5.80) X10*6/uL Hgb (14.0-18.0) g/dl Hct (42.0-52.0) % MCV (80.0-98.0) fL MCH (27.0-33.0) pg MCHC (31.0-36.0) g/dl RDW (11.0-16.0) % Plt Count (160-400) X10*3/uL MPV (9.4-12.4) fL Immature Gran % (Auto) (0.0-0.4) % Neut % (Auto) (45-73) % Lymph % (Auto) (20-40) % Hughes % (Auto) (2-11) % Eos % (Auto) (0-4) % Baso % (Auto) (0-2) % Lymph # (Auto) (1.2-4.9) X10*3/uL Hughes # (Auto) (0.1-1.2) X10*3/uL Eos # (Auto) (0.0-0.4) X10*3/uL Baso # (Auto) (0.0-0.2) X10*3/uL Abs Immat Gran (auto) (0.00-0.03) X10*3/uL Absolute Neuts (auto) (2.0-8.3) x10*3/uL Absolute Nucleated RBC (0.0-0.012) X10*3/uL Nucleated RBC % (auto) (0.0-0.2) /100WBC Sodium 135 (135-145) mmol/L Potassium 3.6 (3.3-5.1) mmol/L Chloride 96 (96-108) mmol/L Carbon Dioxide 25 (22-29) mmol/L Anion Gap 18 (12-20) BUN 47 H (9-16) mg/dL Creatinine 6.59 H* (0.5-1.4) mg/dL Estim Creat Clear Calc 16.7 Estimated GFR 9 POC Glucose (60-115) mg/dL Random Glucose 96 (60-115) mg/dL Calcium 10.2 D (8.4-10.2) mg/dL Total Bilirubin 0.4 (0.0-1.0) mg/dL AST 20 (5-37) U/L ALT 41 H (0-40) U/L Alkaline Phosphatase 98 (39-117) U/L Total Protein 8.5 H (6.5-8.0) g/dL Albumin 3.5 (3.5-5.0) g/dL Discharge Plan Discharge Clinical Impression: Lillian-rectal abscess, Cellulitis Patient Disposition: [facility] Additional Instructions: You are being transferred to [facility] which has the capacity to do peritoneal dialysis The reason you are being admitted to the hospital is probable perirectal abscess and cellulitis that did not respond to oral antibiotics in the gluteal area The transfer to [facility] was accepted by Dr. Cardenas of hospitalist service You will be going to [place] [address], room 30-2B Prescriptions: No Action (DME) FreeStyle Juanito 14 Day Sensor Kit See Rx Instructions .Route Qty: 2 0RF Rx Instructions: As directed carvedilol 6.25 mg tablet 6.25 mg PO Q12H Qty: 60 0RF Rx Instructions: must administer with a meal/food amlodipine 10 mg tablet 10 mg PO DAILY Qty: 30 0RF atorvastatin 10 mg tablet 10 mg PO DAILY Qty: 90 1RF (DME) pen needle, diabetic [BD Ultra-Fine Short Pen Needle] 31 gauge x 5/16 needle See Rx Instructions subcut QID Qty: 1200 Rx Instructions: As directed Bar Iyer U-300 Insulin 300 unit/mL (1.5 mL) insulin pen 6 unit subcut BEDTIME bumetanide 1 mg tablet 1 mg PO BID sevelamer carbonate 800 mg tablet 800 mg PO TID (DME) Left [id number] prosthetic See Rx Instructions .Route .MEDSUPPLY Qty: 1 0RF Rx Instructions: As directed ergocalciferol (vitamin D2) 1,250 mcg (50,000 unit) capsule 1,250 mcg PO QWEEK doxycycline hyclate 100 mg capsule 100 mg PO BID 10 Days Qty: 20 0RF omeprazole 40 mg capsule,delayed release(DR/EC) 40 mg PO DAILY Qty: 30 2RF Rx Instructions: Take an hour before eating once a day allopurinol 100 mg tablet 100 mg PO DAILY (DME) blood sugar diagnostic Strip See Rx Instructions Not Applicable .MEDSUPPLY Qty: 10 Rx Instructions: As directed insulin aspart U-100 [Novolog FlexPen U-100 Insulin] 100 unit/mL (3 mL) insulin pen subcut Print Language: Montenegrin
[2024-01-27 11:34] VITALS: BP 113/68; PULSE 85; RESP 16; TEMP 36.7; O2SAT 96; BMI 38.2
--- OUTSIDE RECORDS SUMMARY | 2024-01-27 11:54 | XMS_ITS | Patient Health Record ---
Author Organization [facility] Address [address] [place] [address] Care Team Providers Care Nurse First Assist Name Role Phone Shereen Cortes MD Primary Care Provider Donte Llamas Unavailable [phone] ALLERGIES Allergen (clinical drug ingredient) Drug/Non Drug [...] malignant neoplasm of colon (Z12.11) Active confirmed 921098765 Problem Abdominal bloating (R14.0) Active confirmed 514730855 Problem Abdominal pain, epigastric (R10.13) Active confirmed 31949507 Problem Abdominal pain, left upper quadrant (R10.12) Active confirmed 616368660 Problem Small intestinal bacterial overgrowth (K63.89) Active confirmed 451406221 PLAN OF TREATMENT Pending Test Test Name [...] Provider Name:Donte Ching , 03/09/2024 02:40:00 PM, [address] [place] [address], [address], [place], [address], Insurance Providers Payer Name Payer Address Payer Phone Subscriber Number Group Number Insured Name Patient Relationship to Insured Coverage Start Date Coverage End Date [facility] [address] [place] [address] [id number] PAKO MEDINA Self - patient is the insured MEDICAL (GENERAL) HISTORY Medical History History ICD Code IDDM--sees Dr. Gaytan Hypertension Denies [place],CVA,Lung disease,renal disease Hyperlipidemia Neuropathy in LE's Sleep [...]
--- OUTSIDE RECORDS SUMMARY | 2024-01-27 11:55 | XMS_ITS | Patient Health Record ---
[facility] Address [address] [place] [address] Care Team Providers Care Crm Analyst Name Role Phone Sebastian CATSRO, Shereen Goodwin Primary Care Provider Un available Jacobo Rabago Unavailable [phone] ALLERGIES Allergen (clinical drug ingredient) Drug/Non Drug [...] swati osteoarthritis of the ankle and/or foot (833380509) Problem Primary osteoarthrit is, left ankle and foot (M19.072) Active confirmed Localized, prim swati osteoarthritis of the ankle and/or foot (575357694) Problem Other hammer toe(s) (acquired), right foot (M20.41) Active confirmed Acquired hammer toe of right foot (3278500903804774) Problem Other hammer toe(s) (acquired), left foot (M20.42) Active confirmed Acquired hammer toe of left foot (0940154261314123) PLAN OF TREATMENT Pending Test Test Name [...] X ray : Foot, left 3V 04/13/2016 58750-WLHGXNT NAIL, 6 OR MORE 10/27/2015 25369-CMIKFHX NAIL, 6 OR MORE 12/31/2015 62183-ENFNMYU NAIL, 6 OR MORE 01/12/2016 49572-YHXCATO NAIL, 6 OR MORE 08/07/2015 28308-VOTZBAT NAIL, 6 OR MORE 08/20/2015 71632-IFPRCMA NAIL, 6 OR MORE 02/20/2016 01663-DIRUIER NAIL, 6 OR MORE 04/18/2017 99012-MSPPXNQ NAIL, 6 OR MORE 02/07/2017 80438-WLULHJC NAIL, 6 OR MORE 07/08/2016 31901-COQEWCW NAIL, 6 OR MORE 09/06/2016 87240-VLUMILK NAIL, 1-5 02/16/2018 73868-HRMOCYD NAIL, 1-5 05/25/2018 17252-Ysehiydm Plate 02/16/2018 91559-Iguvovbz Plate 07/08/2016 59373- Debride <25 sq cm 06/02/2016 07133- Debride <25 sq cm 05/19/2016 39846- Debride <25 sq cm 12/06/2013 70296- Debride <25 sq cm 08/20/2015 86296- Debride <25 sq cm 05/10/2013 21512- Debride <25 sq cm 04/28/2016 95612- Debride <25 sq cm 05/13/2016 70033- Debride <25 sq cm 04/13/2016 67588-FUQVYCV SKIN/TISSUE 08/07/2015 25897-SFDKLBT SKIN/TISSUE 08/20/2015 04563-NQXJ SKIN LESIONS, OVER 4 08/20/19 16 39299-BRIY SKIN LESIONS, OVER 4 02/20/20 16 07697-TMNQ SKIN LESIONS, OVER 4 08/07/19 16 81324-FBJW SKIN LESIONS, OVER 4 10/27/19 16 85546-JPCX SKIN LESIONS, OVER 4 09/07/19 17 04148-PDRA SKIN LESIONS, OVER 4 11/09/19 17 19314-XWLC SKIN LESIONS, OVER 4 02/08/20 17 49854-ICIB SKIN LESIONS, OVER 4 07/08/19 17 86578-ZZMP SKIN LESIONS, OVER 4 04/18/20 17 73583-WUMR SKIN LESIONS, OVER 4 02/17/20 18 91321-AHDR SKIN LESIONS, OVER 4 05/25/20 18 21035-STEU SKIN LESIONS, OVER 4 08/23/19 19 06775-BXOB SKIN LESIONS, OVER 4 11/23/19 19 46783-GDQE SKIN LESIONS, 2 TO 4 05/10/20 13 38620-VZBO SKIN LESIONS, 2 TO 4 12/07/19 14 K7238-YMFVAQWP DYSTROPHIC NAILS ANY # Q0593-OORUQUNN DYSTROPHIC NAILS ANY # 15287-GVIUCJAA OF HEMATOMA/FLUID 018 Insurance Providers Payer Name Payer Address Payer Phone Subscriber Number Group Number Insured Name Patient Relationship to Insured Coverage Start Date Coverage End Date [employer] [address] [place] [address] Moustapha Ruiz Self - patient is the insured MEDICAL (GENERAL) HISTORY Medical History History ICD Code poor circulation high blood pressure diabetic Gout measles chicken pox Surgical History Surgery Date(Month/Year) ACL right foot left foot Graft 01/1994 left middle finger Graft left foot, skin graft 08/2014 [place] [facility] [place] Hospitalization History Reason Date(Month/Year) [facility] - Stomach Pain was disch arg[place] on 01/31/16 [place] [facility] [place] [facility] [place] - 22 day stay 06/2017
[2024-01-27] MEDS: Lidocaine HCl 1 % MPF 5 ML VIAL SUBCUT ×3 (12:45)
[2024-01-27 14:37] LABS: Glucose, Whole Blood 49 mg/dL (60-115)
[2024-01-27] MEDS: Morphine Sulfate 4 MG/ML CARTRIDGE IM (14:41)
--- NOTE | 2024-01-27 14:46 | PC.NURSE ---
pt called nurse to room sts that he feels as though his glucose is low, sts that his dexcom usually tells him his sugar but he did not apply a sensor today- POC blood glucose obtained with ethan of 46- MP jd notified pt given 8ox of orange juice- well tolerated PO- awaiting recheck of blood glucose- JAMAAL miles to bedside- evaluated pt, pt rec 4mg IM morphine for 10/10 buttock abscess pain - pt awaiting CT results- care ongoing
[2024-01-27 15:01] VITALS: BP 139/68; PULSE 73; RESP 18; O2SAT 94
--- NOTE | 2024-01-27 15:13 | PM.HPGS ---
History of Present Illness History of Present Illness Date of Service: 01/27/24 Chief complaint: cyst Narrative: Moustapha Ruiz is a 58 year old male presenting with a rectal abscess initially seen in the ED several days ago by the ED staff. An abscess was identified and subsequent incision and drainage performed. He was placed on p.o. doxycycline. Yesterday he returned to the ED with the inability to urinate. A Flores catheter was subsequently placed and he was discharged to home. He again returns today with severe perirectal pain with apparent increased induration in the perirectal skin. A 2nd incision and drainage was performed however no abscess could be identified. CT abdomen and pelvis was performed. There is significant inflammation in the perirectal skin and a possible small superficial collection although this may be from the incision and drainage with an air pocket following incision and drainage. He is admitted to the surgical service for IV antibiotics. Hospitalist consultation will be requested for his multiple medical problems including chronic renal failure stage 5, diabetes mellitus, peripheral arterial disease status post left BKA and celiac disease. Review of Systems Review of Systems: Yes all other systems are reviewed and are negative Constitutional: Constitutional: Reports body ache(s), Reports chills, Reports difficulty sleeping and Reports poor appetite Cardiovascular: Cardiovascular: Denies chest pain, Denies irregular heart rhythm and Denies dyspnea on exertion Respiratory: Respiratory: Denies chest congestion, Denies cough and Denies dyspnea on exertion Gastrointestinal: Gastrointestinal: Denies abdominal pain, Reports constipation, Denies nausea and Denies vomiting Integumentary/Breasts: Skin/Breast: Reports as per [facility] Past Medical History Medical History Difficulty swallowing Epigastric pain syndrome Chronic right shoulder pain Spinal stenosis of lumbosacral region with radiculopathy Vitamin D deficiency Osteomyelitis of toe of right foot Chronic kidney disease, stage 5 Chronic low back pain Pericardial effusion Cellulitis of right lower leg Major depressive disorder Diabetes mellitus with retinopathy Diabetes mellitus with diabetic nephropathy, with long-term current use of insulin Dyslipidemia Diabetic gastroparesis associated with type 2 diabetes mellitus Morbid obesity Celiac disease Diabetic neuropathy associated with type 2 diabetes mellitus Non-toxic multinodular goiter Hypertension Renal calculi Gastroparesis Hypercholesterolemia Peripheral vascular disease Family History Family History Father Hypertension Diabetes Mother No problems noted. Sister Mental health disorder Surgical History Surgical History Status post amputation of lesser toe of right foot S/P laparoscopic sleeve gastrectomy Hx of colonoscopy History of below-knee amputation (~06/28/17) History of lobectomy of thyroid (~03/25/15) History of esophagogastroduodenoscopy (EGD) (~09/26/13) History of repair of ACL (~2004) History of skin graft (~1993) Social History Social History Household Members: Spouse Housing: Apartment Do you presently have visiting nurse or other home services: No Alcohol intake: former Comment: refuses alarm Patient Tobacco Use Status: Never used Tobacco Smoked in Last 30 Days: No e-Cigarette/Vaping Use: Never Used Advance Directives: No service: No Current occupational status: disabled Cognitive needs: No Hearing needs: No Vision needs: No Meds Allergies Allergy/AdvReac Type Severity Reaction Status Date / Time cephalexin [CEPHALEXIN] Allergy Intermediate UNABLE TO Verified 01/27/24 11:39 MOVE ENTIRE BODY, chills and fever, nausea, chills, fever, and nausea metformin [METFORMIN] AdvReac Intermediate ADVISED Verified 01/27/24 11:39 NOT TO TAKE ANYMORE,SHAKEY,STOMACH PAINS, stomach upset, stomach upset Active Medications: Current Medications Acetaminophen (Acetaminophen 325 Mg Tablet) 650 mg PO Q6H PRN PRN Reason: Pain, Mild (Pain Scale 1-3), fever or headache Heparin Sodium (Porcine) (Heparin Sodium,Porcine 5,000 Unit/Ml Vial) 5,000 unit SUBCUT Q12H SUSANNA Hydromorphone HCl (Hydromorphone Hcl 1 Mg/Ml Syringe) 0.5 mg IVPUSH Q4H PRN; Protocol PRN Reason: Pain, Severe (Pain Scale 7-10) Piperacillin Sod/Tazobactam (Sod 3.375 gm/ Sodium Chloride) 50 mls @ 100 mls/hr IV Q6H SUSANNA Magnesium Hydroxide (Milk Of Magnesia 30 Ml Oral.Susp) 30 ml PO DAILY PRN PRN Reason: Constipation Melatonin (Melatonin 3 Mg Tablet) 3 mg PO BEDTIME PRN PRN Reason: Insomnia Ondansetron HCl (Ondansetron Hcl 4 Mg/2 Ml Vial) 4 mg IVPUSH Q8H PRN PRN Reason: Nausea and Vomiting Oxycodone HCl (Oxycodone Hcl Immed Release 5 Mg Tablet) 5 mg PO Q6H PRN PRN Reason: Pain, Mild (Pain Scale 1-3) Sodium Chloride (0.9 % Sodium Chloride Flush 3 Ml Syringe) 3 [facility] Home Medications ?Medication ?Instructions ?Recorded ?Confirmed ?Last Taken ?Type allopurinol 100 mg tablet 100 mg PO DAILY 04/29/20 03/29/23 08/06/21 09:00 History blood sugar diagnostic #10 ea 04/29/20 03/29/23 Unknown History pen needle, diabetic 31 gauge x #1,200 ea 11/11/21 03/29/23 Unknown History /16 (BD Ultra-Fine Short Pen Needle) insulin glargine U-300 conc 300 6 unit subcut BEDTIME 08/26/22 03/29/23 Unknown History unit/mL (1.5 mL) subcutaneous pen (Toujeo SoloStar U-300 Insulin) insulin aspart U-100 100 unit/mL subcut 10/26/22 03/29/23 Unknown History (3 mL) subcutaneous pen (Novolog FlexPen U-100 Insulin aspart) sevelamer carbonate 800 mg tablet 800 mg PO TID 12/09/22 03/29/23 Unknown History bumetanide 1 mg tablet 1 mg PO BID 03/29/23 03/29/23 Unknown History ergocalciferol (vitamin D2) 1,250 1,250 mcg PO QWEEK 01/23/24 Unknown History mcg (50,000 unit) capsule Physical Exam Vital Signs: Vital Signs: Last Vital Signs Temp 98.1 F 01/27/24 11:34 Pulse 73 01/27/24 15:01 Resp 18 01/27/24 15:01 BP 139/68 01/27/24 15:01 Pulse Ox 94 01/27/24 15:01 O2 Del Method Room Air 01/27/24 15:01 BMI result Body Mass Index 38.2 Const: General: no acute distress Nutritional Appearance: well nourished Orientation/consciousness: patient oriented x3 Resp: Effort & Inspection: normal respiratory effort GI: Other: PD catheter in place Inspection: Yes normal to inspection Palpation (GI): Soft to palpation, nontender and no guarding Back/Spine/Pelvis: Other: Extensive area of inflammation in the perirectal skin on both the left and right buttock. Incision and drainage sites noted on both the left and right side. Site is exquisitely tender however unable to definitely see an area of fluctuance. Neuro: General: patient oriented x3 Assessment and Plan (1) Rectal abscess: Status: Acute Plan Admit to surgical service for IV antibiotics and monitoring of perirectal abscess. Await final reading on CT abdomen and pelvis Quality Stroke Does the patient have a stroke diagnosis?: No VTE Prior VTE?: No VTE Risk Level:: Surgical - moderate VTE Device Contraindication: N/A - Device Ordered VTE Drug Contraindication: N/A - Med Ordered Procedures Date of Service Date of Service: 01/27/24
[2024-01-27 15:28] LABS: Glucose, Whole Blood 76 mg/dL (60-115)
[2024-01-27] MEDS: 0.9 % Sodium Chloride Flush 3 ML SYRINGE IVFLUSH (16:00)
[2024-01-27 16:04] LABS: MANUAL DIFF FLAG NO
--- NOTE | 2024-01-27 16:04 | PC.NURSE ---
repeat POC 76 after 80z of orange juice. pt verbalizes improvement- MD Velasco met with pt at bedside, plan is for admission for IV ABX for abscess of buttock- pt utilizes peritoneal dialysis for kidney failure- this procedure is done daily at home with the assistance of his . [facility] does not perform Peritoneal dialysis, JAMAAL Sanders aware- call placed to [facility] for transfer, for further eval and tx of abscess, as well as magement of peritoneal dialysis. Of note, pt is difficult to obtain IV access- this nurse attempted x2, MD Flores call to bedside- 22g IV placed via ultrasound guidance in right medial AC.
[2024-01-27 16:06] LABS: Basophils Percent Auto 0.2 % (0-2); Eosinophils Absolute Auto 0.1 X10*3/uL (0.0-0.4); Eosinophils Percent Auto 0.3 % (0-4); Hemoglobin 12.6 g/dl (14.0-18.0); Imm Gran Abs Auto 0.13 X10*3/uL (0.00-0.03); Imm Gran Pct Auto 0.7 % (0.0-0.4); Lymphocytes Absolute Auto 1.2 X10*3/uL (1.2-4.9); Lymphocytes Percent Auto 6.6 % (20-40); Mean Corpuscular Hemoglobin 33.3 pg (27.0-33.0); Mean Corpuscular Volume 95.2 fL (80.0-98.0); Mean Platelet Volume 9.5 fL (9.4-12.4); Monocytes Percent Auto 5.6 % (2-11); Neutrophils Percent Auto 86.6 % (45-73); Platelet Count 268 X10*3/uL (160-400); Red Blood Count 3.78 X10*6/uL (4.60-5.80); Red Cell Distribution Width 14.7 % (11.0-16.0); White Blood Count 17.4 X10*3/uL (4.8-10.8)
[2024-01-27 16:35] LABS: Alanine Aminotransferase 41 U/L (0-40); Albumin Level 3.5 g/dL (3.5-5.0); Alkaline Phosphatase 98 U/L (39-117); Anion Gap 18 (12-20); Aspartate Amino Transferase 20 U/L (5-37); Bilirubin Total 0.4 mg/dL (0.0-1.0); Blood Urea Nitrogen 47 mg/dL (9-16); Calcium 10.2 mg/dL (8.4-10.2); Carbon Dioxide 25 mmol/L (22-29); Chloride 96 mmol/L (96-108); Creatinine Clr Calc Pharmacy 16.7; Estimated Glomerular Filt Rate 9; Glucose Random 96 mg/dL (60-115); Potassium 3.6 mmol/L (3.3-5.1); Sodium 135 mmol/L (135-145); Total Protein 8.5 g/dL (6.5-8.0)
[2024-01-27 17:07] VITALS: BP 133/83; PULSE 76; RESP 16; TEMP 36.8; O2SAT 94
[2024-01-27] MEDS: Piperacillin Sodium/Tazobactam 3.375 GM in 0.9 % Sodium Chloride 50 ML IV (18:02)
--- NOTE | 2024-01-27 18:07 | PC.NURSE ---
rec [facility] bed asssignment- pt will be going to [place] [id number] room 32B.
--- NOTE | 2024-01-27 18:09 | PC.NURSE ---
spoke with pt - Adrianne advised of the [facility] room assignment
--- NOTE | 2024-01-27 18:55 | PC.NURSE ---
nurse to nurse report given to Birgit Laws, RN at [facility] 30-2b
[2024-01-27 18:56] VITALS: BP 133/83; PULSE 76; RESP 16; TEMP 36.8; O2SAT 94
[2024-01-27 19:01] VITALS: BP 132/77; PULSE 78; RESP 16; TEMP 36.7; O2SAT 95
[2024-01-27] MEDS: HYDROmorphone HCl 1 MG/ML SYRINGE 0.5 MG IVPUSH (19:36)
--- NOTE | 2024-01-27 21:08 | PC.NURSE ---
left message for pt - pt departed [facility] is en route to [facility].- pt transported via [facility]
== END 2024-01-27 21:11 | disposition short-term general hospital (02) ==
PROVIDERS: Surgery; Emergency Provider Student in an Organized Health Care Education/Training Program; PCP Internal Medicine
DX: K61.1 Rectal abscess (principal); E11.22 Type 2 diabetes mellitus with diabetic chronic kidney disease; I12.0 Hypertensive chronic kidney disease with stage 5 chronic kidney disease or end stage renal disease; N18.5 Chronic kidney disease, stage 5; Z99.2 Dependence on renal dialysis; E78.5 Hyperlipidemia, unspecified; Z79.4 Long term (current) use of insulin; Z79.02 Long term (current) use of antithrombotics/antiplatelets; Z79.899 Other long term (current) drug therapy
CPT/HCPCS: 10060; 36415; 74176; 80053; 82947; 85025; 96365; 96372; 96375; 99285; J1170; J2270; J2543

== ENCOUNTER → 2024-01-27 11:52 | Outpatient (BNV) | payer OTHER, SELFPAY | PROVIDERS: Emergency Provider Student in an Organized Health Care Education/Training Program; PCP Internal Medicine; Visit Provider Surgery | DX: K61.1 Rectal abscess (principal) | CPT/HCPCS: 99284 ==

== ENCOUNTER 2024-03-03 10:16 | Outpatient (AMB) | payer OTHER, SELFPAY ==
--- OUTSIDE RECORDS SUMMARY | 2024-03-03 10:18 | XMS_ITS | Patient Health Record ---
Author Organization [facility] Address [address] [place] [address] Care Team Providers Care Communications Analyst Name Role Phone Shereen Cortes MD Primary Care Provider Donte Llamas Unavailable [phone] ALLERGIES Allergen (clinical drug ingredient) Drug/Non Drug [...] malignant neoplasm of colon (Z12.11) Active confirmed 063253465 Problem Abdominal bloating (R14.0) Active confirmed 020885089 Problem Abdominal pain, epigastric (R10.13) Active confirmed 90221460 Problem Abdominal pain, left upper quadrant (R10.12) Active confirmed 140853143 Problem Small intestinal bacterial overgrowth (K63.89) Active confirmed [id number] PLAN OF TREATMENT Pending Test Test Name [...] Provider Name:Donte Ching , 03/09/2024 02:40:00 PM, [address] [place] [address], [address], [place], [address], Insurance Providers Payer Name Payer Address Payer Phone Subscriber Number Group Number Insured Name Patient Relationship to Insured Coverage Start Date Coverage End Date [facility] [address] [place] [address] [id number] PAKO MEDINA Self - patient is the insured MEDICAL (GENERAL) HISTORY Medical History History ICD Code IDDM--sees Dr. Gaytan Hypertension Denies ID,CVA,Lung disease,renal disease Hyperlipidemia Neuropathy in LE's Sleep [...]
--- OUTSIDE RECORDS SUMMARY | 2024-03-03 10:18 | XMS_ITS | Patient Health Record ---
[facility] Address [address] [address] Care Team Providers Care Tinter Photograph Name Role Phone Sebastian CASTRO, Shereen Goodwin Primary Care Provider Un available Jacobo Rabago Unavailable [phone] ALLERGIES Allergen (clinical drug ingredient) Drug/Non Drug [...] swati osteoarthritis of the ankle and/or foot (153512946) Problem Primary osteoarthrit is, left ankle and foot (M19.072) Active confirmed Localized, prim swati osteoarthritis of the ankle and/or foot (020589667) Problem Other hammer toe(s) (acquired), right foot (M20.41) Active confirmed Acquired hammer toe of right foot (6898246201195893) Problem Other hammer toe(s) (acquired), left foot (M20.42) Active confirmed Acquired hammer toe of left foot (1992068139050771) PLAN OF TREATMENT Pending Test Test Name [...] X ray : Foot, left 3V 04/13/2016 04995-DFHSWHD NAIL, 6 OR MORE 10/27/2015 62944-PPKMUDI NAIL, 6 OR MORE 12/31/2015 89026-WIZSSMG NAIL, 6 OR MORE 01/12/2016 70863-XPXPZUP NAIL, 6 OR MORE 08/07/2015 34768-WZUFSOI NAIL, 6 OR MORE 08/20/2015 43921-SYYMPWC NAIL, 6 OR MORE 02/20/2016 45458-NXPFPQG NAIL, 6 OR MORE 04/18/2017 79178-SLOXYIV NAIL, 6 OR MORE 02/07/2017 94786-QLFQBHW NAIL, 6 OR MORE 07/08/2016 83329-VJXGLKI NAIL, 6 OR MORE 09/06/2016 36644-YLJTTIK NAIL, 1-5 02/16/2018 02641-TOVFTGP NAIL, 1-5 05/25/2018 93908-Sgllziis Plate 02/16/2018 39463-Uckgzqnc Plate 07/08/2016 17920- Debride <25 sq cm 06/02/2016 58031- Debride <25 sq cm 05/19/2016 40040- Debride <25 sq cm 12/06/2013 27234- Debride <25 sq cm 08/20/2015 63072- Debride <25 sq cm 05/10/2013 19705- Debride <25 sq cm 04/28/2016 70879- Debride <25 sq cm 05/13/2016 31541- Debride <25 sq cm 04/13/2016 66377-IWOLLSD SKIN/TISSUE 08/07/2015 07640-OBAAVEA SKIN/TISSUE 08/20/2015 42380-DLGE SKIN LESIONS, OVER 4 08/20/19 16 68877-MDDT SKIN LESIONS, OVER 4 02/20/20 16 36039-OTMW SKIN LESIONS, OVER 4 08/07/19 16 03584-RGVO SKIN LESIONS, OVER 4 10/27/19 16 93904-ETXX SKIN LESIONS, OVER 4 09/07/19 17 86086-UTTJ SKIN LESIONS, OVER 4 11/09/19 17 98927-GPVB SKIN LESIONS, OVER 4 02/08/20 17 92997-QDRS SKIN LESIONS, OVER 4 07/08/19 17 81840-KJYT SKIN LESIONS, OVER 4 04/18/20 17 40833-WTZH SKIN LESIONS, OVER 4 02/17/20 18 18955-GIRV SKIN LESIONS, OVER 4 05/25/20 18 54654-DJJR SKIN LESIONS, OVER 4 08/23/19 19 15656-GGZF SKIN LESIONS, OVER 4 11/23/19 19 66386-IYEN SKIN LESIONS, 2 TO 4 05/10/20 13 10222-MYPS SKIN LESIONS, 2 TO 4 12/07/19 14 F5115-OGMZWJDM DYSTROPHIC NAILS ANY # C9943-QKURJDCP DYSTROPHIC NAILS ANY # 97177-JMEHPXSE OF HEMATOMA/FLUID 018 Insurance Providers Payer Name Payer Address Payer Phone Subscriber Number Group Number Insured Name Patient Relationship to Insured Coverage Start Date Coverage End Date [employer] [address] [place] [address] Moustapha Ruiz Self - patient is the insured MEDICAL (GENERAL) HISTORY Medical History History ICD Code poor circulation high blood pressure diabetic Gout measles chicken pox Surgical History Surgery Date(Month/Year) ACL right foot left foot Graft 01/1994 left middle finger Graft left foot, skin graft 08/2014 [place] [facility] [place] Hospitalization History Reason Date(Month/Year) [facility] - Stomach Pain was disch arged on 01/31/16 [place] [facility] [place] [facility] [place] - 22 day stay 06/2017
--- NOTE | 2024-03-03 11:54 | AM.OFFWIN_ITS ---
Intake Vital Signs 03/03/24 11:57 Height 5 ft 11 in Weight 277 lb BMI 38.6 BP 124/74 Blood Pressure Location Lt brachial Position Sitting Pulse 88 Pulse Source Pulse Oximeter Temp 98.1 F Temp Source Oral Pulse Oximetry (%) 99 Oxygen Delivery Method Room Air Intake Visit Reasons: EP RT shoulder injury due to fall Intake Note: Pt is here today c/i Rt shoulder pain due to a fall injury at home x4days Patient Tobacco Use Status: Never used Tobacco Allergies cephalexin [CEPHALEXIN] Allergy (Intermediate, Verified 03/03/24 12:15) UNABLE TO MOVE ENTIRE BODY, chills and fever, nausea, chills, fever, and nausea metformin [METFORMIN] Adverse Reaction (Intermediate, Verified 03/03/24 12:15) ADVISED NOT TO TAKE ANYMORE,SHAKEY,STOMACH PAINS, stomach upset, stomach upset Medication List - Last Reconciled 03/03/24 by Bria Valdez, CARBURETOR SPECIALIST- allopurinol 100 mg PO DAILY atorvastatin 10 mg PO DAILY blood sugar diagnostic As directed bumetanide 1 mg PO BID carvedilol 6.25 mg PO Q12H flash glucose sensor (FreeStyle Juanito 14 Day Sensor kit) As directed insulin aspart U-100 (Novolog FlexPen U-100 Insulin aspart) subcut insulin glargine U-300 conc (Toujeo SoloStar U-300 Insulin) 6 units subcut BEDTIME [Left sljcl-rpk-aruc prosthetic As directed NS] omeprazole 40 mg PO DAILY pen needle, diabetic (BD Ultra-Fine Short Pen Needle) As directed sevelamer carbonate 800 mg PO TID HPI HPI Comments History of Present Illness Details 58-year-old medically complex male here today with complaints of right shoulder pain reports that he fell a few days ago onto his right shoulder he has had pain since that time. He is unable to move his arm given the pain. He took leftover muscle relaxers that he had at home x2 with no relief. He has been also using a heating pad. Exam: Chronically ill appearing, accompanied by c/o pain prior to me touching his right arm. right arm neurovasc intact. difficult exam as he was yelling out in pain with any touch of the right arm. LROM in all directions, passive and active. rounded shoulder posture, hard to see if there is a dislocation. Plan: Xray today of the R shoulder, elbow and humerus. In regards to pain medication, the options are very limited as his gfr 01/2024 is 16. he is also on triple antibiotics to include vancomycin. there is a note in the chart of suicide attempt w/ opiates in the past. Given this, i will send in topical lidocaine that he can use. APAP PRN NTE 3/GM in 24 hours. Refer to Ortho. Right shoulder placed in sling. Cont supportive care such as heating pad, ice, etc. The Rad Read is pending at the close of this note. I looked at the film, there is a widening of the shoulder joint, no obvious fracture; right elbow and humerus no acute findings. Total time spent caring for the patient today was 30 minutes. This includes time spent before the visit reviewing the chart, time spent during the visit, and time spent after the visit on documentation This note is constructed using voice recognition software. While every effort has been made to ensure accuracy in mill order scheduler, still errors may have been included Sometimes, these errors may affect the content or meaning of the given sentence . [facility] Medical History Difficulty swallowing Epigastric pain syndrome Chronic right shoulder pain Spinal stenosis of lumbosacral region with radiculopathy Vitamin D deficiency Osteomyelitis of toe of right foot Chronic kidney disease, stage 5 Chronic low back pain Pericardial effusion Cellulitis of right lower leg Major depressive disorder Diabetes mellitus with retinopathy Diabetes mellitus with diabetic nephropathy, with long-term current use of insulin Dyslipidemia Diabetic gastroparesis associated with type 2 diabetes mellitus Morbid obesity Celiac disease Diabetic neuropathy associated with type 2 diabetes mellitus Non-toxic multinodular goiter Hypertension Renal calculi Gastroparesis Hypercholesterolemia Peripheral vascular disease Surgical History Status post amputation of lesser toe of right foot S/P laparoscopic sleeve gastrectomy Hx of colonoscopy History of below-knee amputation (~06/28/17) History of lobectomy of thyroid (~03/25/15) History of esophagogastroduodenoscopy (EGD) (~09/26/13) History of repair of ACL (~2004) History of skin graft (~1993) Family History Father Hypertension Diabetes Mother No problems noted. Sister Mental health disorder Social History Household Members: Spouse Housing: Apartment Do you presently have visiting nurse or other home services: No Alcohol intake: former Comment: refuses alarm Patient Tobacco Use Status: Never used Tobacco e-Cigarette/Vaping Use: Never Used service: No Current occupational status: disabled Cognitive needs: No Hearing needs: No Vision needs: No Physical Exam Vital Signs: Last Vital Signs Temp 98.1 F 03/03/24 11:57 Pulse 88 03/03/24 11:57 BP 124/74 03/03/24 11:57 Pulse Ox 99 03/03/24 11:57 Oxygen Delivery Method Room Air 03/03/24 11:57 BMI result Body Mass Index 38.6 Assessment & Plan Assessment & Plan (1) Right shoulder pain: Code(s): M25.511 - Pain in right shoulder Qualifiers: Chronicity: acute Qualified Code(s): M25.511 - Pain in right shoulder (2) Fall: Code(s): W19.XXXA - Unspecified fall, initial encounter Qualifiers: Encounter type: initial encounter Qualified Code(s): W19.XXXA - Unspecified fall, initial encounter Plan: . Plan . Orders: Orders XR shoulder RT min 2V Today M25.511 - Pain in right shoulder, W19.XXXA - Unspecified fall, initial encounter XR elbow RT 2V Today M25.511 - Pain in right shoulder, W19.XXXA - Unspecified fall, initial encounter XR humerus RT Today M25.511 - Pain in right shoulder, W19.XXXA - Unspecified fall, initial encounter XR clavicle RT Today M25.511 - Pain in right shoulder, W19.XXXA - Unspecified fall, initial encounter Referrals Orthopedics Referral M25.511 - Pain in right shoulder, W19.XXXA - Unspecified fall, initial encounter Coding Level of Care Code Est Pt Level 4 (61003) Diagnoses Acute pain of right shoulder M25.511 Chronicity: acute Fall, initial encounter W19.XXXA Encounter type: initial encounter
[2024-03-03 11:57] VITALS: BP 124/74; PULSE 88; TEMP 36.7; O2SAT 99; BMI 38.6
== END 2024-03-03 12:29 | disposition home or self-care (01) ==
PROVIDERS: PCP Internal Medicine; Visit Provider Nurse Practitioner Family
DX: M25.511 Pain in right shoulder (principal); W19.XXXA Unspecified fall, initial encounter
CPT/HCPCS: 99214

== ENCOUNTER 2024-03-03 12:23 | Outpatient (REF) | payer OTHER, SELFPAY ==
--- NOTE | ~2024-03-03 | XR_ITS ---
EXAMINATION: XR ELBOW, RIGHT CLINICAL INFORMATION: Shoulder pain COMPARISON: None available. TECHNIQUE: AP, lateral, and oblique views of the right elbow. FINDINGS: The bones and soft tissues are normal. No fracture or joint effusion. Alignment is anatomic. Joint spaces are maintained. Extensive atherosclerotic calcification. XR/XR elbow RT 2V IMPRESSION: Normal right elbow. Electronically signed by: Kaleigh Stone MD 03/04/2024 09:39 AM EDT
--- NOTE | ~2024-03-03 | XR_ITS ---
EXAMINATION: XR CLAVICLE, RIGHT CLINICAL INFORMATION: Shoulder pain COMPARISON: None available. TECHNIQUE: Two views of the right clavicle. FINDINGS: The clavicle is intact. The bones and soft tissues are normal. No fracture. There is moderate acromioclavicular joint arthritis. XR/XR clavicle RT IMPRESSION: Moderate acromioclavicular joint arthritis. Electronically signed by: Kaleigh Stone MD 03/04/2024 09:39 AM EDT
--- NOTE | ~2024-03-03 | XR_ITS ---
EXAMINATION: XR HUMERUS, RIGHT CLINICAL INFORMATION: Shoulder pain COMPARISON: None available. TECHNIQUE: AP and lateral views of the right humerus. FINDINGS: The bones and soft tissues are normal. No fracture. Imaged portions of the shoulder and elbow are unremarkable. XR/XR humerus RT IMPRESSION: Normal right humerus. Electronically signed by: Kaleigh Stone MD 03/04/2024 09:38 AM EDT
--- NOTE | ~2024-03-03 | XR_ITS ---
EXAMINATION: XR SHOULDER, RIGHT CLINICAL INFORMATION: Right shoulder pain COMPARISON: None available. TECHNIQUE: Three views of the right shoulder. FINDINGS: There is moderate acromioclavicular osteoarthritis. Glenohumeral joint is well preserved. No fracture. Alignment is anatomic. Soft tissues are normal with no abnormal calcifications. XR/XR shoulder RT min 2V IMPRESSION: Moderate acromioclavicular joint arthritis. Electronically signed by: Kaleigh Stone MD 03/04/2024 09:39 AM EDT
== END 2024-03-03 12:24 | disposition home or self-care (01) ==
LOC: HO.HMGCX 12:23
PROVIDERS: PCP Internal Medicine; Visit Provider Nurse Practitioner Family
DX: M25.511 Pain in right shoulder (principal); M54.2 Cervicalgia; M25.521 Pain in right elbow; M79.621 Pain in right upper arm; W19.XXXA Unspecified fall, initial encounter
CPT/HCPCS: 73000; 73030; 73060; 73070

== ENCOUNTER 2024-03-05 10:15 | Outpatient (AMB) | payer OTHER, SELFPAY ==
[2024-03-05 10:24] VITALS: BP 124/82; PULSE 87; O2SAT 98; BMI 38.8
--- NOTE | 2024-03-05 10:24 | A.OFFPC_ITS ---
Vital Signs 03/05/24 10:24 Height 5 ft 11 in Weight 278 lb 6 oz BMI 38.8 BP 124/82 Blood Pressure Location Rt brachial Position Sitting Pulse 87 Pulse Source Pulse Oximeter Pulse Oximetry (%) 98 Oxygen Delivery Method Room Air Intake Visit Reasons: 3 month follow-up Intake Note: Pt is here today for 3 month follow up. Allergies cephalexin [CEPHALEXIN] Allergy (Intermediate, Verified 03/05/24 11:04) UNABLE TO MOVE ENTIRE BODY, chills and fever, nausea, chills, fever, and nausea metformin [METFORMIN] Adverse Reaction (Intermediate, Verified 03/05/24 11:04) ADVISED NOT TO TAKE ANYMORE,SHAKEY,STOMACH PAINS, stomach upset, stomach upset Medication List - Last Reconciled 03/05/24 by Shereen Cortes MD allopurinol 100 mg PO DAILY atorvastatin 10 mg PO DAILY blood sugar diagnostic As directed bumetanide 1 mg PO BID carvedilol 6.25 mg PO Q12H flash glucose sensor (FreeStyle Juanito 14 Day Sensor kit) As directed insulin aspart U-100 (Novolog FlexPen U-100 Insulin aspart) subcut insulin glargine U-300 conc (Toujeo SoloStar U-300 Insulin) 6 units subcut BEDTIME [Left ejdqo-jlv-ehsv prosthetic As directed NS] omeprazole 40 mg PO DAILY pen needle, diabetic (BD Ultra-Fine Short Pen Needle) As directed sevelamer carbonate 800 mg PO TID sulfamethoxazole-trimethoprim 400-80 mg 1 tab PO DAILY Tobacco use date assessed: 03/05/24 Dental Screening Dental Screen Date: 03/05/24 Did you have a dental visit in the last 12 months?: Yes Did you have a dental problem in the last 6 months where you did not have access to dental care?: No Was dental information given to patient?: Patient has dentist HPI 3 month follow-up HPI Details 58 year old male with chronic kidney dis ease stage 5 currently on peritoneal dialysis, morbid obesity status post gastric sleeve in 2020, type 2 diabetes mellitus currently on insulin, benign prostatic hyperplasia, hyperlipidemia, hypertension, peripheral vascular disease status post BKA left and s/p right 4th toe amputation, multinodular goiter, and was recently treated for perirectal abscess at [facility], here today for follow-up. He is accompanied today by his who states that patient has been very depressed, almost ready to give up due to the multiple health issues he has been having. He has never been diagnosed with depression, and never been on any medication but at this point would like to see a therapist and have something to help control his mood swings. REPLACED BY [facility] Medical History (Updated 03/05/24 @ 11:25 by Shereen Cortes MD) Depression with anxiety Difficulty swallowing Epigastric pain syndrome Chronic right shoulder pain Spinal stenosis of lumbosacral region with radiculopathy Vitamin D deficiency Osteomyelitis of toe of right foot Chronic kidney disease, stage 5 Chronic low back pain Pericardial effusion Cellulitis of right lower leg Major depressive disorder Diabetes mellitus with retinopathy Diabetes mellitus with diabetic nephropathy, with long-term current use of insulin Dyslipidemia Diabetic gastroparesis associated with type 2 diabetes mellitus Morbid obesity Celiac disease Diabetic neuropathy associated with type 2 diabetes mellitus Non-toxic multinodular goiter Hypertension Renal calculi Gastroparesis Hypercholesterolemia Peripheral vascular disease Surgical History Status post amputation of lesser toe of right foot S/P laparoscopic sleeve gastrectomy Hx of colonoscopy History of below-knee amputation (~06/28/17) History of lobectomy of thyroid (~03/25/15) History of esophagogastroduodenoscopy (EGD) (~09/26/13) History of repair of ACL (~2004) History of skin graft (~1993) Family History Father Hypertension Diabetes Mother No problems noted. Sister Mental health disorder Social History Household Members: Spouse Housing: Apartment Do you presently have visiting nurse or other home services: No Alcohol intake: former Comment: refuses alarm Patient Tobacco Use Status: Never used Tobacco e-Cigarette/Vaping Use: Never Used service: No Current occupational status: disabled Cognitive needs: No Hearing needs: No Vision needs: No Questionnaire PHQ-9 Over the last 2 weeks, how often have you been bothered by any of the following problems? 1. Little interest or pleasure in doing things: nearly every day 2. Feeling down, depressed, or hopeless: nearly every day 3. Trouble falling or staying asleep, or sleeping too much: more than half the days 4. Feeling tired or having little energy: nearly every day 5. Poor appetite or overeating: nearly every day 6. Feeling bad about yourself - or that you are a failure or have let yourself or your family down: nearly every day 7. Trouble concentrating on things, such as reading the newspaper or watching television: more than half the days 8. Moving or speaking so slowly that other people could have noticed. Or the opposite - being so fidgety or restless that you have been moving around a lot more than usual: not at all 9. Thoughts that you would be better off or of hurting yourself in some way: nearly every day Total score: 22 Depression Screening Interpretation: Positive (Referred to [facility], for assistance in getting an appointment for therapy, and psychiatry,) Depression Screening Follow-up: New Medication prescribed and Community Mental Health Worker F/U Depression Screening Done: Yes 01479 - PHQ-9 Billing: Yes Source: Developed by Drs. Donte Pope, Holly Wu, Gama So and colleagues, with an educational easton from [employer]. Thrive Questionnaire Date Thrive assessed: 03/05/24 I am a: Patient What is your living situation today?: I have a steady place to live Within the past 12 months, did the food you bought not last and you didn't have the money to get more?: Never true Within the past 12 months, did you worry whether your food would run out before you got money to buy more?: Never true Do you have trouble paying for medicines?: No Do you have trouble getting transportation to medical appointments?: No Do you have trouble paying your heating and electricity bill?: No Do you have trouble taking care of your child, family member or friend?: No Do you have trouble with day-to-day activities such as bathing, preparing meals, shopping, managing finances, etc.?: No Are you currently unemployed and looking for a job?: No Are you interested in more education?: No Please select the resources that you would like help with: None Currently or been in a relationship where the following occur: No concerns reported THRIVE Score: 0 AUDIT C Alcohol Use Questionnaire (AUDIT-C) 1. How often do you have a drink containing alcohol?: Never 3. How often do you have six or more drinks on one occasion?: Never Total Score: 0 Score Reviewed/Action Taken: Yes SALUD-7 AMB Questionnaire SALUD-7 Date SALUD - 7 assessed: 03/05/24 Feeling nervous, anxious, or on edge: 3 = Nearly every day Not being able to stop or control worryin = Several days Worrying too much about different things: 1 = Several days Trouble relaxin = Several days Being so restless that it is hard to sit still: 0 = Not at all Becoming easily annoyed or irritable: 2 = More than half the days Feeling afraid as if something awful might happen: 0 = Not at all Total SALUD-7 score (0-4 normal; 5-9 mild; 10-14 moderate; 15-21 severe): 8 Source: Developed by Drs. Donte Pope, Holly Wu, Gama So and colleagues, with an educational easton from [employer]. SALUD-7 Assessment Billing SALUD-7 Assessment Tool: SALUD-7 Assessment 92994 Review of Systems Const All systems reviewed & are unremarkable except as noted in HPI and below Psych Reports abnormal sleep pattern, Reports hopelessness, Denies homicidal ideation and Denies suicidal ideation Physical exam (Primary Care) Vital Signs: Last Vital Signs Pulse 87 03/05/24 10:24 BP 124/82 03/05/24 10:24 Pulse Ox 98 03/05/24 10:24 Oxygen Delivery Method Room Air 03/05/24 10:24 BMI result Body Mass Index 38.8 Tobacco/Smoking Status: Tobacco use Status Tobacco use date assessed 03/05/24 03/05/24 10:29 Patient Tobacco Use Status Never used Tobacco 03/05/24 10:29 e-Cigarette/Vaping Use Never Used 03/05/24 10:29 PHQ-9: PHQ-9 Score PHQ-9: Total score 22 03/05/24 11:24 Depression Screening Interpretation: Positive (Referred to [facility], for assistance in getting an appointment for therapy, and psychiatry,) Depression Screening Follow-up: New Medication prescribed and Community Mental Health Worker F/U Thrive Assessment: Date of Thrive Assessment Date Thrive assessed 03/05/24 03/05/24 10:29 Currently or been in a relationship where the following occur: No concerns reported Const General: alert Nutritional Appearance: obese morbidly obese ALAN Other: Ambulatory with assistance of his left leg prosthesis, in no acute distress, accompanying patient Face and sinus: Yes face symmetric Mouth: Normal oral and palatal mucosa present and moist mucous membranes Neck Neck: Yes full ROM, Yes no lymphadenopathy and Yes supple Resp Effort & Inspection: normal respiratory effort and able to speak in complete sentences Auscultation: clear to auscultation bilaterally Cardio Rate: regular rate Rhythm: regular rhythm Heart sounds: S1 normal heart sound present and S2 normal heart sound present GI Inspection: Yes obesity Palpation (GI): Soft to palpation, Tenderness to palpation present (GI) in the epigastrum, no guarding and no masses Auscultation: normal bowel sounds Extrem Other: Left leg prosthesis intact, slight tenderness on palpation over right AC joint, with decreased range of motion of right arm especially on abduction more than 90 degrees due to pain Psych Appearance: grossly normal and well kempt Mental Status: mental status grossly normal Speech and movement: Normal speech and movement present and Slowed movement present (Neuro) Affect: normal affect Thought process: Normal thought process present Thought content: Normal thought content present Assessment and Plan Assessment & Plan (1) Depression with anxiety: Code(s): F41.8 - Other specified anxiety disorders Plan: Will start on sertraline 50 mg per tablet to take initially half a tablet for the 1st week and then increase it to 50 mg as needed on the 2nd week. Referred to [facility] for assistance getting in to see therapy as soon as possible and later on with psychiatry. Will see him back for follow-up on 03/23/2024 (2) Dyslipidemia: Code(s): E78.5 - Hyperlipidemia, unspecified Plan: Currently on atorvastatin 10 mg daily (3) Right shoulder pain: Code(s): M25.511 - Pain in right shoulder Qualifiers: Chronicity: acute Qualified Code(s): M25.511 - Pain in right shoulder Plan: X-ray of right shoulder joint showed presence of moderate o'clock acromioclavicular joint arthritis patient already has been referred to orthopedics by Terrie. Prescription was sent for tramadol 50 mg per tablet to take 1 tablet once or twice a day as needed only for moderate pain, take together with Tylenol for synergistic effect, apply ice or moist heat to affected joint. Orders: Orders Aspartate Amino Transferase 03/05/24 E78.5 - Hyperlipidemia, unspecified Lipid Panel 03/05/24 E78.5 - Hyperlipidemia, unspecified Alanine Aminotransferase 03/05/24 E78.5 - Hyperlipidemia, unspecified Medications: New tramadol 50 mg PO DAILY PRN 10 tabs 0RF pain, moderate sertraline 50 mg PO DAILY 30 tabs 1RF Coding Level of Care Code Est Pt Level 4 (47800) Complex EM visit Add On G2211 Diagnoses Depression with anxiety F41.8 Dyslipidemia E78.5 Acute pain of right shoulder M25.511 Chronicity: acute Additional Codes SALUD-7 Assessment Billing - SALUD-7 Assessment Tool: SALUD-7 Assessment 69115 ([id number])
== END 2024-03-05 13:01 | disposition home or self-care (01) ==
PROVIDERS: PCP Internal Medicine; Visit Provider Internal Medicine
DX: F41.8 Other specified anxiety disorders (principal); E78.5 Hyperlipidemia, unspecified; M25.511 Pain in right shoulder
CPT/HCPCS: 96127; 99214; G2211

== ENCOUNTER 2024-03-19 09:25 | Outpatient (AMB) | payer OTHER, SELFPAY ==
--- OUTSIDE RECORDS SUMMARY | 2024-03-19 09:27 | XMS_ITS ---
Author Organization [facility] Address [address] [place] [address] Care Team Providers Care Deputy Sheriff Chief Name Role Phone Sebastian CASTRO, Shereen Primary Care Provider Donte Llamas Unavailable [phone] REASON FOR VISIT Pt no showed Encounters Encounter Location Date Provider Diagnosis [facility] [address] [place] [address] 03/09/2024 Donte Ching PLAN OF TREATMENT No Information
--- OUTSIDE RECORDS SUMMARY | 2024-03-19 09:27 | XMS_ITS ---
Author Organization [facility] Address [address] [place] [address] Care Team Providers Care Switch Cleaner Name Role Phone Sebastian CASTRO, Shereen Primary Care Provider Donte Llamas [facility] [phone] REASON FOR VISIT Patient presents today for DYSPHAGIA, EPIGASTRIC PAIN Encounters Encounter Location Date Provider Diagnosis [facility] [address] [place] [address] 03/09/2024 Donte Ching PLAN OF TREATMENT No Information
--- NOTE | 2024-03-19 09:28 | MHC.OFFWIV ---
Intake Vital Signs 03/19/24 09:29 Height 5 ft 11 in Weight 278 lb BMI 38.8 BP 128/80 Blood Pressure Location Rt brachial Position Sitting Pulse 94 Pulse Source Pulse Oximeter Pulse Oximetry (%) 100 Oxygen Delivery Method Room Air Intake Visit Reasons: EP-rt shoulder injury Intake Note: Patient here for right shoulder pain, pt had a fall on tuesday of last week and re injured himself. he now has pain,numbness and tingling from pinky down to palm of hand Patient Tobacco Use Status: Never used Tobacco Allergies cephalexin [CEPHALEXIN] Allergy (Intermediate, Verified 03/19/24 09:30) UNABLE TO MOVE ENTIRE BODY, chills and fever, nausea, chills, fever, and nausea metformin [METFORMIN] Adverse Reaction (Intermediate, Verified 03/19/24 09:30) ADVISED NOT TO TAKE ANYMORE,SHAKEY,STOMACH PAINS, stomach upset, stomach upset Do you need a note to return to daycare/school/sports/work: No HPI HPI Comments History of Present Illness Details Patient is a 58-year-old male complaining of right shoulder pain after tripping and falling in his kitchen. He states he hit a few appliance is on his way down and he fell on his right shoulder. This is his 2nd fall in the last few weeks. He states that he came to this clinic on March 03 after sustaining a fall in his right shoulder, they had an x-ray of his shoulder and elbow at the time and there was nothing acute at that time. He knows states since his fall on Tuesday he has just been trying to rest it but he has numbness all the way down his right shoulder into his 4th and 5th digits. He also states they are weak and a little bit cool. He states he is in dialysis and can not take NSAIDs. He has not used any ice on the area, he has been taking Tylenol with no relief. He states it is really hard for him to move his shoulder/arm in any direction FORMERLY [facility], [facility] Medical History (Updated 03/05/24 @ 11:25 by Shereen Cortes MD) Depression with anxiety Difficulty swallowing Epigastric pain syndrome Chronic right shoulder pain Spinal stenosis of lumbosacral region with radiculopathy Vitamin D deficiency Osteomyelitis of toe of right foot Chronic kidney disease, stage 5 Chronic low back pain Pericardial effusion Cellulitis of right lower leg Major depressive disorder Diabetes mellitus with retinopathy Diabetes mellitus with diabetic nephropathy, with long-term current use of insulin Dyslipidemia Diabetic gastroparesis associated with type 2 diabetes mellitus Morbid obesity Celiac disease Diabetic neuropathy associated with type 2 diabetes mellitus Non-toxic multinodular goiter Hypertension Renal calculi Gastroparesis Hypercholesterolemia Peripheral vascular disease Surgical History Status post amputation of lesser toe of right foot S/P laparoscopic sleeve gastrectomy Hx of colonoscopy History of below-knee amputation (~06/28/17) History of lobectomy of thyroid (~03/25/15) History of esophagogastroduodenoscopy (EGD) (~09/26/13) History of repair of ACL (~2004) History of skin graft (~1993) Family History Father Hypertension Diabetes Mother No problems noted. Sister Mental health disorder Social History Household Members: Spouse Housing: Apartment Do you presently have visiting nurse or other home services: No Alcohol intake: former Comment: refuses alarm Patient Tobacco Use Status: Never used Tobacco e-Cigarette/Vaping Use: Never Used service: No Current occupational status: disabled Cognitive needs: No Hearing needs: No Vision needs: No Review of Systems Const All systems reviewed & are unremarkable except as noted in HPI and below Physical Exam Vital Signs: Last Vital Signs Pulse 94 03/19/24 09:29 BP 128/80 03/19/24 09:29 Pulse Ox 100 03/19/24 09:29 Oxygen Delivery Method Room Air 03/19/24 09:29 BMI result Body Mass Index 38.8 Const General: cooperative, healthy appearing, comfortable, no acute distress and well developed Orientation/consciousness: patient oriented x3 Limitations: physical limitations (BKA left ) HEENT Head: Yes normal to inspection Ears: hearing grossly normal bilaterally General nose exam: Normal external nose present Face and sinus: Yes normal facial exam Eyes General: appearance normal, both eyes and all related structures Neck Neck: Yes normal visual inspection and Yes full ROM Resp Effort & Inspection: normal respiratory effort and able to speak in complete sentences Skin General skin exam: no rashes or lesions noted Neuro General: patient oriented x3 Extrem Right upper extremity: shoulder/upper arm Details: normal to inspection, tenderness Location: over the biceps tendon and abnormal ROM Details: pain with active ROM Details: in ADduction, in ABduction, in extension, in internal rotation and external rotation- and pain with passive ROM Details: with ADduction, with ABduction, with extension, with internal rotation and external rotation-; no abrasions, no lacerations, no ecchymosis, no deformity and no unusual warmth, elbow/forearm Details: normal to inspection, normal ROM and distal pulses intact; no tenderness, no swelling, no unusual warmth, no abrasions, no lacerations and no ecchymosis and Extremity exam: right hand (NVI) Details: normal to inspection, normal capillary refill, neuromotor exam normal, neurosensory exam normal, tendon exam normal, normal ROM of fingers and no swelling; no tenderness and no unusual warmth Assessment & Plan Assessment & Plan (1) Right shoulder pain: Code(s): M25.511 - Pain in right shoulder Qualifiers: Chronicity: acute Qualified Code(s): M25.511 - Pain in right shoulder Plan: Likely ulnar nerve entrapment, sent low-dose prednisone burst for anti-inflammatory effects as patient is on dialysis and can not use NSAIDs. Reviewed risks and benefits of taking prednisone. We will also get a 2nd x-ray after his 2nd fall because range of motion is severely reduced which was not like that prior to his 2nd fall. He does already have an orthopedics appointment for March 26 so I do not need to send another referral it is for the same right shoulder but now his injuries are more severe. Encouraged patient to use ice and sling to rest it properly. Plan See above Orders: Orders XR shoulder RT min 2V Today M25.511 - Pain in right shoulder Medications: New prednisone 20 mg PO DAILY 5 tabs 0RF Coding Level of Care Code Est Pt Level 4 (67391) Diagnoses Acute pain of right shoulder M25.511 Chronicity: acute
--- OUTSIDE RECORDS SUMMARY | 2024-03-19 09:28 | XMS_ITS | Patient Health Record ---
Author Organization [facility] Address [address] [place] [address] Care Team Providers Care Real Estate Appraiser Supervisor Name Role Phone Shereen Cortes MD Primary Care Provider Donte Llamas Unavailable [phone] ALLERGIES Allergen (clinical drug ingredient) Drug/Non Drug [...] malignant neoplasm of colon (Z12.11) Active confirmed 437554001 Problem Abdominal bloating (R14.0) Active confirmed 159038712 Problem Abdominal pain, epigastric (R10.13) Active confirmed 73144456 Problem Abdominal pain, left upper quadrant (R10.12) Active confirmed 275637138 Problem Small intestinal bacterial overgrowth (K63.89) Active confirmed 849157369 Encounters Encounter Location Date Provider Diagnosis [facility] [address] [place] [address] 03/09/2024 Donte Ching [facility] [address] [place] [address] 03/09/2024 Donte Ching PLAN OF TREATMENT Pending Test Test Name Order Date LIVER PROFILE 08/30/2017 AMYLASE 08/30/2017 LIPASE 08/30/2017 T4 (THYROXINE) 08/30/2017 TSH (THYROID STIMULATING HORMONE) 2017 IRON + IBC (FE) 08/30/2017 FERRITIN 08/30/2017 VITAMIN B12 AND FOLATE 08/30/2017 CBC w DIFF 08/30/2017 CELIAC PANEL #10 08/30/2017 Future Test Test Name Order Date UPPER GI ENDOSCOPY 09/18/2013 UPPER GI ENDOSCOPY 08/30/2017 COLONOSCOPY 08/30/2017 Insurance Providers Payer Name Payer Address Payer Phone Subscriber Number Group Number Insured Name Patient Relationship to Insured Coverage Start Date Coverage End Date [facility] [address] [place] [address] [id number] CAROLPAKO GALDAMEZ Self - patient is the insured MEDICAL [...]
--- OUTSIDE RECORDS SUMMARY | 2024-03-19 09:28 | XMS_ITS | Patient Health Record ---
Author Organization [facility] Address [address] [place] [address] Care Team Providers Care Philosophy Lecturer Name Role Phone Sebastian CASTRO, Shereen Goodwin Primary Care Provider Un available Jacobo Rabago Unavailable [phone] ALLERGIES Allergen (clinical drug ingredient) Drug/Non Drug [...] swati osteoarthritis of the ankle and/or foot (464337823) Problem Primary osteoarthrit is, left ankle and foot (M19.072) Active confirmed Localized, prim swati osteoarthritis of the ankle and/or foot (754584626) Problem Other hammer toe(s) (acquired), right foot (M20.41) Active confirmed Acquired hammer toe of right foot (6990643899840175) Problem Other hammer toe(s) (acquired), left foot (M20.42) Active confirmed Acquired hammer toe of left foot (8524464939640502) PLAN OF TREATMENT Pending Test Test Name [...] X ray : Foot, left 3V 04/13/2016 80111-XLIKLFT NAIL, 6 OR MORE 10/27/2015 74920-AHNBSOT NAIL, 6 OR MORE 12/31/2015 06005-IBEWQFW NAIL, 6 OR MORE 01/12/2016 61400-UGVDRLJ NAIL, 6 OR MORE 08/07/2015 34509-GOMRSHV NAIL, 6 OR MORE 08/20/2015 68900-SYGWIHT NAIL, 6 OR MORE 02/20/2016 44538-JKOBDKZ NAIL, 6 OR MORE 04/18/2017 02686-DDQOFYE NAIL, 6 OR MORE 02/07/2017 44845-YUSBFUI NAIL, 6 OR MORE 07/08/2016 10421-ZUIOIPU NAIL, 6 OR MORE 09/06/2016 44886-RPDVEZT NAIL, 1-5 02/16/2018 33305-QIFLZGV NAIL, 1-5 05/25/2018 68311-Bjkrrjia Plate 02/16/2018 69271-Ikbhoefy Plate 07/08/2016 04216- Debride <25 sq cm 06/02/2016 30192- Debride <25 sq cm 05/19/2016 38039- Debride <25 sq cm 12/06/2013 78575- Debride <25 sq cm 08/20/2015 31794- Debride <25 sq cm 05/10/2013 23714- Debride <25 sq cm 04/28/2016 42578- Debride <25 sq cm 05/13/2016 12810- Debride <25 sq cm 04/13/2016 53420-AWJBAYX SKIN/TISSUE 08/07/2015 24773-PDJSURX SKIN/TISSUE 08/20/2015 88429-HDTM SKIN LESIONS, OVER 4 08/20/19 16 64908-FUII SKIN LESIONS, OVER 4 02/20/20 16 06265-UGPQ SKIN LESIONS, OVER 4 08/07/19 16 62307-ZDTS SKIN LESIONS, OVER 4 10/27/19 16 36959-YNHT SKIN LESIONS, OVER 4 09/07/19 17 33295-AZIM SKIN LESIONS, OVER 4 11/09/19 17 07574-JNZA SKIN LESIONS, OVER 4 02/08/20 17 73555-JDIY SKIN LESIONS, OVER 4 07/08/19 17 10981-RJQI SKIN LESIONS, OVER 4 04/18/20 17 17179-SNJX SKIN LESIONS, OVER 4 02/17/20 18 98279-GOPX SKIN LESIONS, OVER 4 05/25/20 18 55952-IIOV SKIN LESIONS, OVER 4 08/23/19 19 76458-PZCA SKIN LESIONS, OVER 4 11/23/19 19 77771-MKOY SKIN LESIONS, 2 TO 4 05/10/20 13 05571-WNMX SKIN LESIONS, 2 TO 4 12/07/19 14 U0179-AGRQMABB DYSTROPHIC NAILS ANY # E2014-DUUCZNTP DYSTROPHIC NAILS ANY # 20545-DEEBPYDT OF HEMATOMA/FLUID 018 Insurance Providers Payer Name Payer Address Payer Phone Subscriber Number Group Number Insured Name Patient Relationship to Insured Coverage Start Date Coverage End Date [employer] [address] [place] [address] Moustapha Ruiz Self - patient is the insured MEDICAL (GENERAL) HISTORY Medical History History ICD Code poor circulation high blood pressure diabetic Gout measles chicken pox Surgical History Surgery Date(Month/Year) ACL right foot left foot Graft 01/1994 left middle finger Graft left foot, skin graft 08/2014 Left Foot Amputation @ [facility] 06/28/2017 Hospitalization History Reason Date(Month/Year) [facility] - Stomach Pain was disch arged on 01/31/16 01/29/2016 [facility] - right second toe infection 016 [facility] - Amputation - 22 day stay 06/2017
[2024-03-19 09:29] VITALS: BP 128/80; PULSE 94; O2SAT 100; BMI 38.8
== END 2024-03-19 09:52 | disposition home or self-care (01) ==
PROVIDERS: PCP Internal Medicine; Visit Provider Physician Assistant
DX: M25.511 Pain in right shoulder (principal)

== ENCOUNTER → 2024-03-19 09:25 | Outpatient (BNVA) | payer OTHER, SELFPAY | PROVIDERS: PCP Internal Medicine ==

== ENCOUNTER 2024-03-19 09:44 | Outpatient (REF) | payer OTHER, SELFPAY ==
--- NOTE | ~2024-03-19 | XR_ITS ---
EXAMINATION: XR SHOULDER, RIGHT CLINICAL INFORMATION: Right shoulder pain COMPARISON: Right shoulder 03/03/2024 CT chest 05/31/2020 TECHNIQUE: AP external rotation, Grashey, scapular Y, and axillary views of the right shoulder. FINDINGS: Generative changes are again noted at the right AC joint. Some mild degenerative changes seen at the glenohumeral joint with some minimal irregularity of the glenoid but no significant joint space narrowing. No chondrocalcinosis. No fractures. XR/XR shoulder RT min 2V IMPRESSION: Degenerative changes right AC joint and right glenohumeral joint. Electronically signed by: Shamir Mehta MD 03/19/2024 11:26 AM EDT
== END 2024-03-19 09:45 | disposition home or self-care (01) ==
LOC: HO.HMGCX 09:44
PROVIDERS: PCP Internal Medicine; Visit Provider Physician Assistant
DX: M25.511 Pain in right shoulder (principal)
CPT/HCPCS: 73030; 99212

== ENCOUNTER 2024-03-26 10:52 | Outpatient (AMB) | payer OTHER, SELFPAY ==
[2024-03-26 10:53] VITALS: BMI 38.8
--- NOTE | 2024-03-26 10:53 | A.OFFVIS_ITS ---
Vital Signs 03/26/24 10:53 Height 5 ft 11 in Weight 278 lb BMI 38.8 Intake Visit Reasons: New Prob - Right shoulder pain Intake Note: Moustapha is a 58 year old right hand dominant male who presents today with complaints of right shoulder pain s/p fall about 3 weeks ago. Patient reports subsequent falls due to blood pressure drops, managed by Dr. Cortes. Patient states since the initial fall he has been having trouble lifting, bringing his arm above his head or behind his back. He uses a walker with wheels for ambulation which is hard to maneuver due to his shoulder pain. Patient denies prior injuries or surgeries to the right shoulder. He was seen [place] [facility] [place]. Allergies cephalexin [CEPHALEXIN] Allergy (Intermediate, Verified 03/26/24 10:53) UNABLE TO MOVE ENTIRE BODY, chills and fever, nausea, chills, fever, and nausea metformin [METFORMIN] Adverse Reaction (Intermediate, Verified 03/26/24 10:53) ADVISED NOT TO TAKE ANYMORE,SHAKEY,STOMACH PAINS, stomach upset, stomach upset HPI HPI New Prob - Right shoulder pain: Details: Moustapha is a 58 year old right hand dominant male who presents today with complaints of right shoulder pain s/p fall about 3 weeks ago. Patient reports subsequent falls due to blood pressure drops, managed by Dr. Cortes. Patient states since the initial fall he has been having trouble lifting, bringing his arm above his head or behind his back. He uses a walker with wheels for ambulation which is hard to maneuver due to his shoulder pain. Patient denies prior injuries or surgeries to the right shoulder. He was seen at [facility] [place]. COUNTS INCLUDE 234 BEDS AT THE [facility] Medical History (Updated 03/26/24 @ 12:08 by Wayne Magallon MD) Depression with anxiety Difficulty swallowing Epigastric pain syndrome Chronic right shoulder pain Spinal stenosis of lumbosacral region with radiculopathy Vitamin D deficiency Osteomyelitis of toe of right foot Chronic kidney disease, stage 5 Chronic low back pain Pericardial effusion Cellulitis of right lower leg Major depressive disorder Diabetes mellitus with retinopathy Diabetes mellitus with diabetic nephropathy, with long-term current use of insulin Dyslipidemia Diabetic gastroparesis associated with type 2 diabetes mellitus Morbid obesity Celiac disease Diabetic neuropathy associated with type 2 diabetes mellitus Non-toxic multinodular goiter Hypertension Renal calculi Gastroparesis Hypercholesterolemia Peripheral vascular disease Surgical History Status post amputation of lesser toe of right foot S/P laparoscopic sleeve gastrectomy Hx of colonoscopy History of below-knee amputation (~06/28/17) History of lobectomy of thyroid (~03/25/15) History of esophagogastroduodenoscopy (EGD) (~09/26/13) History of repair of ACL (~2004) History of skin graft (~1993) Family History Father Hypertension Diabetes Mother No problems noted. Sister Mental health disorder Social History Household Members: Spouse Housing: Apartment Do you presently have visiting nurse or other home services: No Alcohol intake: former Comment: refuses alarm Patient Tobacco Use Status: Never used Tobacco e-Cigarette/Vaping Use: Never Used service: No Current occupational status: disabled Cognitive needs: No Hearing needs: No Vision needs: No Physical Exam Vital Signs: BMI result Body Mass Index 38.8 Extrem Other: Positive Campbell and Neer Positive drop-arm 35 degrees of external rotation Office Procedures Joint Injection/Aspiration Joint Injection/Aspiration Details: Injected 1 mL of Decadron and 3 mL 1% lidocaine and 3 mL of 0.25% Marcaine. Site was prepped using aseptic technique. Patient tolerated the procedure well. Primary Site: left shoulder Approach Used: posterolateral Coding 51051 - Large joint Procedure code (CPT) selection complete Assessment & Plan Assessment & Plan (1) Internal derangement of right shoulder: Code(s): M24.811 - Other specific joint derangements of right shoulder, not elsewhere classified Category: Medical Plan: Internal derangement right shoulder status post fall. Physical therapy written and right shoulder injected as he is not sleeping. I warned him of the hyperglycemic effects of steroids (2) Diabetes mellitus with diabetic nephropathy, with long-term current use of insulin: Comment: now sees Dr Raya at [place] Code(s): E11.21 - Type 2 diabetes mellitus with diabetic nephropathy; Z79.4 - nursing home (current) use of insulin Category: Medical Plan: I warned him of the hyperglycemic effects of steroids Orders: Orders PT Evaluation and Treatment Today M24.811 - Other specific joint derangements of right shoulder, not elsewhere classified Coding Level of Care Code Est Pt Level 4 (09230) Diagnoses Internal derangement of right shoulder M24.811 Diabetes mellitus with diabetic nephropathy, with long-term current use of insulin E11.21; Z79.4 CPT Codes Coding - 31260 Large joint: 22407 - Large joint ([id number])
== END 2024-03-26 11:28 | disposition home or self-care (01) ==
PROVIDERS: PCP Internal Medicine; Visit Provider Orthopaedic Surgery
DX: M24.811 Other specific joint derangements of right shoulder, not elsewhere classified (principal); E11.21 Type 2 diabetes mellitus with diabetic nephropathy; Z79.4 Long term (current) use of insulin
CPT/HCPCS: 20610; 99214

== ENCOUNTER → 2024-03-26 10:52 | Outpatient (BNVA) | payer OTHER, SELFPAY | PROVIDERS: PCP Internal Medicine; Visit Provider Orthopaedic Surgery | DX: M24.811 Other specific joint derangements of right shoulder, not elsewhere classified (principal); E11.21 Type 2 diabetes mellitus with diabetic nephropathy; Z79.4 Long term (current) use of insulin | CPT/HCPCS: 20610; 99212; J0665; J1100 ==

== ENCOUNTER 2024-05-10 11:07 | Outpatient (AMB) | payer OTHER, SELFPAY ==
--- NOTE | 2024-05-10 11:17 | A.OFFPC_ITS ---
Vital Signs 05/10/24 11:19 Height 5 ft 11 in Weight 245 lb BMI 34.2 BP 102/70 Blood Pressure Location Lt brachial Position Sitting Pulse 96 Pulse Source Pulse Oximeter Pulse Oximetry (%) 100 Oxygen Delivery Method Room Air Intake Visit Reasons: DM, med changes Intake Note: Pt is here today for his HDF [facility] Allergies cephalexin [CEPHALEXIN] Allergy (Intermediate, Verified 05/10/24 23:48) UNABLE TO MOVE ENTIRE BODY, chills and fever, nausea, chills, fever, and nausea metformin [METFORMIN] Adverse Reaction (Intermediate, Verified 05/10/24 23:48) ADVISED NOT TO TAKE ANYMORE,SHAKEY,STOMACH PAINS, stomach upset, stomach upset Medication List - Last Reconciled 05/10/24 by Shereen Cortes MD acetaminophen mg PO allopurinol 100 mg PO DAILY atorvastatin 10 mg PO DAILY blood sugar diagnostic As directed bumetanide 1 mg PO BID carvedilol 6.25 mg PO Q12H diazepam mg PO BID docusate sodium 100 mg PO DAILY dorzolamide-timolol 22.3-6.8 mg/mL ophthalmic (eye) flash glucose sensor (FreeStyle Juanito 14 Day Sensor kit) As directed gabapentin 300 mg PO DAILY hydrocortisone 2.5% appl topical insulin aspart U-100 (Novolog FlexPen U-100 Insulin aspart) subcut insulin glargine (Lantus Solostar U-100 Insulin) units subcut [Left kqjym-ibw-pilo prosthetic As directed NS] [Mobility scooter As directed] omeprazole 40 mg PO DAILY pen needle, diabetic (BD Ultra-Fine Short Pen Needle) As directed sertraline 50 mg PO DAILY sevelamer carbonate 800 mg PO TID tamsulosin mg PO DAILY Tobacco use date assessed: 05/10/24 Dental Screening Dental Screen Date: 05/10/24 Did you have a dental visit in the last 12 months?: Yes Did you have a dental problem in the last 6 months where you did not have access to dental care?: Yes Was dental information given to patient?: Patient has dentist HPI DM, med changes HPI Details 58-year-old male with past medical histo ry significant for CKD currently now on hemodialysis, has diabetes mellitus, GERD, hypertension, hyperlipidemia, obstructive sleep apnea, peripheral vascular disease status post left BKA was recently admitted at [facility] for necrotizing soft tissue infection in coccygeal area and perianal abscess. He he was brought to the ER with colorectal surgery for debridement and trauma surgery was consulted intraoperatively for assistance who management of necrotizing soft tissue infection., and underwent surgery for diverting transverse colostomy on 04/13/[address] Asencio. He also had PermCath placement for hemodialysis while he is healing from the colostomy creation as he is unable to undergo peritoneal dialysis at present time. CT of abdomen and pelvis done 04/15/2024 did not show any acute abnormalities, Doppler bilateral lower extremities came back negative for clot . Patient is now discharged home with home with VNA services, but patient has been complaining that they do not help with colostomy management and has just been dressing his wound in coccygeal area and buttocks. Patient complaining of a lot of pain and discomfort over wound area, unable to sit or lie down poorly due to pain. He was seen by Dr. Asencio once after his discharge and has another appointment with him 05/18/2024 and a follow-up with Dr. Cowan at the wound care clinic on 06/11/2024. He has difficulty getting around due to pain with presence of the colostomy bag and would like to get a p rescription for a mobility scooter, as he has difficulty walking due to pain in his lower back and anal area. [facility] Medical History (Updated 05/10/24 @ 23:52 by Shereen Cortes MD) History of rectal abscess Depression with anxiety Difficulty swallowing Epigastric pain syndrome Chronic right shoulder pain Spinal stenosis of lumbosacral region with radiculopathy Vitamin D deficiency Osteomyelitis of toe of right foot Chronic kidney disease, stage 5 Chronic low back pain Pericardial effusion Diabetes mellitus with retinopathy Diabetes mellitus with diabetic nephropathy, with long-term current use of insulin Dyslipidemia Diabetic gastroparesis associated with type 2 diabetes mellitus Celiac disease Diabetic neuropathy associated with type 2 diabetes mellitus Non-toxic multinodular goiter Hypertension Renal calculi Gastroparesis Hypercholesterolemia Peripheral vascular disease Surgical History (Updated 05/10/24 @ 23:51 by Shereen Cortes MD) Hx of BKA History of lumbar discectomy Status post amputation of lesser toe of right foot S/P laparoscopic sleeve gastrectomy Hx of colonoscopy History of below-knee amputation (~06/28/17) History of lobectomy of thyroid (~03/25/15) History of esophagogastroduodenoscopy (EGD) (~09/26/13) History of repair of ACL (~2004) History of skin graft (~1993) Family History Father Hypertension Diabetes Mother No problems noted. Sister Mental health disorder Social History Household Members: Spouse Housing: Apartment Do you presently have visiting nurse or other home services: No Alcohol intake: former Comment: refuses alarm Patient Tobacco Use Status: Never used Tobacco e-Cigarette/Vaping Use: Never Used service: No Current occupational status: disabled Cognitive needs: No Hearing needs: No Vision needs: No Questionnaire Thrive Questionnaire Date Thrive assessed: 03/05/24 I am a: Patient What is your living situation today?: I have a steady place to live Within the past 12 months, did the food you bought not last and you didn't have the money to get more?: Never true Within the past 12 months, did you worry whether your food would run out before you got money to buy more?: Never true Do you have trouble paying for medicines?: No Do you have trouble getting transportation to medical appointments?: No Do you have trouble paying your heating and electricity bill?: No Do you have trouble taking care of your child, family member or friend?: No Do you have trouble with day-to-day activities such as bathing, preparing meals, shopping, managing finances, etc.?: No Are you currently unemployed and looking for a job?: No Are you interested in more education?: No Please select the resources that you would like help with: None Currently or been in a relationship where the following occur: No concerns reported THRIVE Score: 0 AUDIT C Alcohol Use Questionnaire (AUDIT-C) 2. How many drinks containing alcohol do you have on a typical day when you are drinking?: 1 or 2 Total Score: 0 SALUD-7 AMB Questionnaire SALUD-7 Date SALUD - 7 assessed: 03/05/24 Source: Developed by Drs. Donte Pope, Holly Wu, Gama So and colleagues, with an educational easton from [employer]. Review of Systems Const Reports fatigue (Gets tired easily), Denies fever(s), Denies headache(s), Denies weakness and Reports weight loss Eyes Denies change in vision ENT Denies dizziness, Denies headache(s), Denies nasal congestion and Denies nasal discharge Card Denies chest pain, Denies lightheadedness, Denies palpitations and Denies dyspnea Resp Denies chest congestion, Denies cough, Denies dyspnea and Denies wheezing GI Denies heartburn Denies hematuria, Denies difficulty urinating and Denies dysuria Musc Reports as per HPI Skin/Breast Reports as per HPI Neuro Denies dizziness, Denies headache(s) and Denies weakness Psych Reports no additional complaints Endo Reports fatigue (Gets tired easily), Denies polydipsia, Denies polyuria and Denies palpitations Flakito/Lymph Reports no additional complaints Aller/Immun Denies seasonal rhinorrhea and Denies wheezing Physical exam (Primary Care) Vital Signs: Last Vital Signs Pulse 96 05/10/24 11:19 BP 102/70 05/10/24 11:19 Pulse Ox 100 05/10/24 11:19 Oxygen Delivery Method Room Air 05/10/24 11:19 BMI result Body Mass Index 34.2 Tobacco/Smoking Status: Tobacco use Status Tobacco use date assessed 05/10/24 05/10/24 11:31 Patient Tobacco Use Status Never used Tobacco 05/10/24 11:18 e-Cigarette/Vaping Use Never Used 05/10/24 11:18 Thrive Assessment: Date of Thrive Assessment Date Thrive assessed 03/05/24 05/10/24 11:18 Currently or been in a relationship where the following occur: No concerns reported Const General: alert Nutritional Appearance: obese morbidly obese Orientation/consciousness: patient oriented x3 HENMT Other: Ambulatory with assistance of his left leg prosthesis, in no acute distress, accompanying patient Face and sinus: Yes face symmetric Mouth: Normal oral and palatal mucosa present and moist mucous membranes Neck Neck: Yes full ROM, Yes no lymphadenopathy and Yes supple Resp Effort & Inspection: normal respiratory effort and able to speak in complete sentences Auscultation: clear to auscultation bilaterally Cardio Rate: regular rate Rhythm: regular rhythm Heart sounds: S1 normal heart sound present and S2 normal heart sound present GI Other: Positive colostomy bag in place with good output , no blood seen in stool, Inspection: Yes obesity Palpation (GI): Soft to palpation, nontender and no guarding Auscultation: normoactive bowel sounds Skin Other: Dressing in place over coccygeal and anal area, dry with no seepage Neuro General: patient oriented x3, tone normal, moves all extremities and no focal motor deficits Extrem Other: Left leg prosthesis intact Psych Appearance: grossly normal and well kempt Mental Status: mental status grossly normal Speech and movement: Normal speech and movement present and Slowed movement present (Neuro) Affect: normal affect Thought process: Normal thought process present Thought content: Normal thought content present Coding Level of Care Code Est Pt Level 4 (21069) Complex EM visit Add On G2211 Diagnoses History of rectal abscess Z87.19 Chronic bilateral low back pain without sciatica M54.50; G89.29 Back pain laterality: bilateral Sciatica presence: without sciatica Chronic renal failure (CRF), stage [address] Z93.3 Diabetes mellitus with diabetic nephropathy, with long-term current use of insulin E11.21; Z79.4 Dyslipidemia E78.5 Hypertension I10 Assessment & Plan Assessment & Plan (1) History of rectal abscess: Code(s): Z87.19 - Personal history of other diseases of the digestive system Category: Medical Plan: Currently being followed at [facility] by colorectal surgeon Dr. Asencio with whom he has an appointment on 05/18/[address] Cowan at the wound clinic on 06/19/2024. He has VNA services that helps him with the dressing changes and wound care (2) Chronic low back pain: Code(s): M54.50 - Low back pain, unspecified; G89.29 - Other chronic pain Category: Medical Qualifiers: Back pain laterality: bilateral Sciatica presence: without sciatica Qualified Code(s): M54.50 - Low back pain, unspecified; G89.29 - Other chronic pain Plan: Prescription written for mobility scooter as he has difficulty with walking due to pain in his lower back and rectal area (3) Chronic renal failure (CRF), stage 5: Code(s): N18.5 - Chronic kidney disease, stage 5 Category: Medical Plan: Now undergoing hemodialysis until the wound in his coccygeal area and perianal area completely heals (4) Colostomy in place: Code(s): Z93.3 - Colostomy status Category: Medical Plan: Colostomy in place, has been mostly doing the changing, patient states that VNA services are present but has not assisted in changing his colostomy bag (5) Diabetes mellitus with diabetic nephropathy, with long-term current use of insulin: Comment: now sees Dr Raya at [facility] Code(s): E11.21 - Type 2 diabetes mellitus with diabetic nephropathy; Z79.4 - intermediate (current) use of insulin Category: Medical Plan: Currently on Lantus Solostar and NovoLog FlexPen, followed by endocrine clinic (6) Dyslipidemia: Code(s): E78.5 - Hyperlipidemia, unspecified Category: Medical Plan: Continued on atorvastatin 10 mg daily (7) Hypertension: Code(s): I10 - Essential (primary) hypertension Category: Medical Plan: Blood pressure at goal of less than 130/80. Continue with current medication. Reinforced importance of following a low sodium diet, getting regular exercise, and lowering stress levels. Medications: New [Mobility scooter] As directed 1 ea 0RF G89.29 - Other chronic pain, I73.9 - Peripheral vascular disease, unspecified, M51.36 - Other intervertebral disc degeneration, lumbar region, M54.50 - Low back pain, unspecified, M54.9 - Dorsalgia, unspecified, N18.5 - Chronic kidney disease, stage 5, R29.6 - Repeated falls, Z89.512 - Acquired absence of left leg below knee, Z98.890 - Other specified postprocedural states
[2024-05-10 11:19] VITALS: BP 102/70; PULSE 96; O2SAT 100; BMI 34.2
== END 2024-05-10 15:41 | disposition home or self-care (01) ==
PROVIDERS: PCP Internal Medicine; Visit Provider Internal Medicine
DX: I12.0 Hypertensive chronic kidney disease with stage 5 chronic kidney disease or end stage renal disease (principal); N18.5 Chronic kidney disease, stage 5; Z93.3 Colostomy status; E11.21 Type 2 diabetes mellitus with diabetic nephropathy; Z79.4 Long term (current) use of insulin; Z87.19 Personal history of other diseases of the digestive system; M54.50 Low back pain, unspecified; G89.29 Other chronic pain; E78.5 Hyperlipidemia, unspecified

== ENCOUNTER → 2024-05-10 11:07 | Outpatient (BNVA) | payer OTHER, SELFPAY | PROVIDERS: PCP Internal Medicine; Visit Provider Internal Medicine | DX: M54.50 Low back pain, unspecified (principal); G89.29 Other chronic pain; E11.21 Type 2 diabetes mellitus with diabetic nephropathy; E78.5 Hyperlipidemia, unspecified; I12.0 Hypertensive chronic kidney disease with stage 5 chronic kidney disease or end stage renal disease; E11.22 Type 2 diabetes mellitus with diabetic chronic kidney disease; N18.5 Chronic kidney disease, stage 5; Z79.4 Long term (current) use of insulin | CPT/HCPCS: 99212 ==

== ENCOUNTER 2024-08-06 08:04 | Outpatient (AMB) | payer OTHER, SELFPAY ==
--- NOTE | 2024-08-06 08:07 | MHC.OFFWIV ---
Intake Vital Signs 08/06/24 08:14 BP 112/80 Blood Pressure Location Lt brachial Position Sitting Pulse 79 Pulse Source Pulse Oximeter Temp 97.8 F Temp Source Oral Pulse Oximetry (%) 98 Oxygen Delivery Method Room Air Intake Visit Reasons: EP-rt hand cyst, rt side ear infection, cough Intake Note: Patient here for cyst on right hand w/ redness and has been present for about 1 week. Patient Tobacco Use Status: Never used Tobacco Allergies cephalexin [CEPHALEXIN] Allergy (Intermediate, Verified 08/06/24 08:13) UNABLE TO MOVE ENTIRE BODY, chills and fever, nausea, chills, fever, and nausea metformin [METFORMIN] Adverse Reaction (Intermediate, Verified 08/06/24 08:13) ADVISED NOT TO TAKE ANYMORE,SHAKEY,STOMACH PAINS, stomach upset, stomach upset Do you need a note to return to daycare/school/sports/work: No HPI HPI Comments History of Present Illness Details 59 y/o male patient who presents to the walk in clinic with c/o right hand cyst x 1 week. C/o right ear pain since Yesterday. C/o Cough for 5 days now. [facility] Medical History (Updated 05/10/24 @ 23:52 by Shereen Cortes MD) History of rectal abscess Depression with anxiety Difficulty swallowing Epigastric pain syndrome Chronic right shoulder pain Spinal stenosis of lumbosacral region with radiculopathy Vitamin D deficiency Osteomyelitis of toe of right foot Chronic kidney disease, stage 5 Chronic low back pain Pericardial effusion Diabetes mellitus with retinopathy Diabetes mellitus with diabetic nephropathy, with long-term current use of insulin Dyslipidemia Diabetic gastroparesis associated with type 2 diabetes mellitus Celiac disease Diabetic neuropathy associated with type 2 diabetes mellitus Non-toxic multinodular goiter Hypertension Renal calculi Gastroparesis Hypercholesterolemia Peripheral vascular disease Surgical History (Updated 05/10/24 @ 23:51 by Shereen Cortes MD) Hx of BKA History of lumbar discectomy Status post amputation of lesser toe of right foot S/P laparoscopic sleeve gastrectomy Hx of colonoscopy History of below-knee amputation (~06/28/17) History of lobectomy of thyroid (~03/25/15) History of esophagogastroduodenoscopy (EGD) (~09/26/13) History of repair of ACL (~2004) History of skin graft (~1993) Family History Father Hypertension Diabetes Mother No problems noted. Sister Mental health disorder Social History Household Members: Spouse Housing: Apartment Do you presently have visiting nurse or other home services: No Alcohol intake: former Comment: refuses alarm Patient Tobacco Use Status: Never used Tobacco e-Cigarette/Vaping Use: Never Used service: No Current occupational status: disabled Cognitive needs: No Hearing needs: No Vision needs: No Review of Systems Const All systems reviewed & are unremarkable except as noted in HPI and below Physical Exam Vital Signs: Last Vital Signs Temp 97.8 F 08/06/24 08:14 Pulse 79 08/06/24 08:14 BP 112/80 08/06/24 08:14 Pulse Ox 98 08/06/24 08:14 Oxygen Delivery Method Room Air 08/06/24 08:14 Const General: cooperative and no acute distress Nutritional Appearance: overweight Orientation/consciousness: patient oriented x3 Limitations: wheelchair HEENT Head: Yes normocephalic Ears: external ears normal and TM abnormal bulging on the right, erythematous on the right and with fluid behind the TM bilateral Resp Effort & Inspection: normal respiratory effort, no audible wheezes and Actively coughing Auscultation: clear to auscultation bilaterally, no crackles, no rales, no rhonchi and no wheezes Cardio Heart sounds: S1 normal heart sound present and S2 normal heart sound present Neuro General: patient oriented x3 Extrem Hand/finger images: 1. Small erythematous abscess, filled with Pus. TTP. Assessment & Plan Assessment & Plan (1) Abscess of skin and subcutaneous tissue: Code(s): L02.91 - Cutaneous abscess, unspecified Qualifiers: Site of cutaneous abscess: extremity Site of cutaneous abscess of extremity: hand Laterality: left Qualified Code(s): L02.512 - Cutaneous abscess of left hand Plan: Ordered Doxyc Apply Warm compress to promote Pus Drainage (2) Cough: Code(s): R05.9 - Cough, unspecified Qualifiers: Cough type: acute Qualified Code(s): R05.1 - Acute cough Plan: Ordered Cough medicine. (3) Otitis of right ear: Code(s): H66.91 - Otitis media, unspecified, right ear Plan: Ordered Abx Ear Drops Acetaminophen for pain relief. Medications: New benzonatate 100 mg PO TID 90 caps 0RF R05.1 - Acute cough ciprofloxacin-hydrocortisone 0.2-1 % (Cipro HC) 3 drps otic (ears) BID 5 days 10 mL 0RF H66.91 - Otitis media, unspecified, right ear doxycycline hyclate 100 mg PO BID 7 days 14 caps 0RF L02.512 - Cutaneous abscess of left hand Coding Level of Care Code Est Pt Level 4 (43334) Diagnoses Cutaneous abscess of left hand L02.512 Site of cutaneous abscess: extremity Site of cutaneous abscess of extremity: hand Laterality: left Acute cough R05.1 Cough type: acute Otitis of right ear H66.91 Time Spent (min) 20
[2024-08-06 08:14] VITALS: BP 112/80; PULSE 79; TEMP 36.6; O2SAT 98
== END 2024-08-06 08:28 | disposition home or self-care (01) ==
PROVIDERS: PCP Internal Medicine; Visit Provider Nurse Practitioner Family
DX: L02.512 Cutaneous abscess of left hand (principal); R05.1 Acute cough; H66.91 Otitis media, unspecified, right ear

== ENCOUNTER 2024-09-05 08:04 | Outpatient (AMB) | payer OTHER, SELFPAY ==
--- OUTSIDE RECORDS SUMMARY | 2024-09-05 08:08 | XMS_ITS | Continuity of Care Document ---
Author Organization [facility] Address [address] [place] [id number] Care Team Providers Care Funeral Home Attendant Name Role Phone Sebastian CASTRO, Shereen Banerjee Primary Care Physician Encounter [facility] – [place] Date(s): 07/20/24 - 08/19/24 [facility] [address] [place] [id number] Encounter Type: Triage Allergies, Adverse Reactions, Alerts Substance Criticality Severity Reaction Reaction Severity Status Keflex muscles locked up, could not move Active metFORMIN 1 Cefalexin GI upset Active 1nausea/vomiting Immunizations Given and Recorded Vaccine Date Status Refusal Reason influenza virus vaccine, inactivated 06/14/22 Jeremiah rded influenza virus vaccine, inactivated 04/16/21 Jeremiah rded influenza virus vaccine, inactivated 08/12/20 Give n influenza virus vaccine, inactivated 05/20/18 Jeremiah rded influenza virus vaccine, inactivated 04/11/17 Jeremiah rded influenza virus vaccine, inactivated 03/26/16 Jeremiah rded [id number] 12y+ bivalent booster vax 06/14/22 Recorded zoster vaccine, inactivated 10/13/21 Recorded SARS-CoV-2 mRNA ([id number]) vax 10/13/21 Recorded SARS-CoV-2 (COVID-19) mRNA BNT-162b2 vac 09/25/20 Recorded SARS-CoV-2 (COVID-19) mRNA BNT-162b2 vac 09/04/20 Recorded tetanus/diphtheria/pertussis, acel(Tdap) 11/09/16 Recorded Medications allopurinol 100 mg oral tablet 100 mg, 1, tablet, By Mouth, Daily, # 30 tablet, Refills 0, Maintenance, 01/28/24 5:27:00 AM EDT, Partial fill upon patient request if the prescription is for a schedule II opioid drug. Start Date: 01/28/24 Status: Ordered Quantity: 30.0 Unit: tablet Repeat number: 1 aspirin 81 mg oral delayed release tablet 81 mg, By Mouth, Daily, # 30 tablet, Refills 0, Tot. Refills 0, Maintenance, 07/02/24 1:56:00 PM EST,Route to Pharmacy Electronically, [facility], Partial fill upon patient request if the prescription is for a schedule II opioid drug., 180, cm, 07/02/24 8:03:00 EST, Height, 106.1, kg, 06/22/24 8:30:00 EST, Dry Weight Start Date: 07/02/24 Stop Date: 08/01/24 Status: Ordered Quantity: 30.0 Unit: tablet Repeat number: 1 atorvastatin 10 mg oral tablet 1 tablet = 10 mg, By Mouth, Daily at bedtime, # 30 tablet, 0 Refills, Maintenance, 08/12/22 2:18:00 PM EST, Partial fill upon patient request if the prescription is for a schedule II opioid drug. Start Date: 08/12/22 Status: Ordered Quantity: 30.0 Unit: tablet Repeat number: 1 benzonatate 100 mg oral capsule 1 capsule = 100 mg, By Mouth, 3 times a day, 0 Refills, Maintenance, 08/07/24 9:59:00 AM EST, Partial fill upon patient request if the prescription is for a schedule II opioid drug. Start Date: 08/07/24 Status: Ordered Repeat number: 1 calcitriol 0.25 mcg oral capsule = 0.5 mcg, By Mouth, Every week, # 4 capsule, 0 Refills, Maintenance, 07/02/24 1:56:00 PM EST, Capsule, [facility], Partial fill upon patient request if the prescription is for a scheduleII opioid drug., 180, cm, 07/02/24 8:03:00 EST, Height, 106.1, kg, 06/22/24 8:30:00 EST, Dry Weight Start Date: 07/02/24 Stop Date: 08/01/24 Status: Ordered Quantity: 4.0 Unit: capsule Repeat number: 1 carvedilol 6.25 mg oral tablet 6.25 mg, 1, tablet, By Mouth, 2 times a day, # 60 tablet, Refills 0, Tot. Refills 0, Maintenance, 01/22/23 12:19:00 PM EDT, Route to Pharmacy Electronically, [facility]/pharmacy #[id number], Partial fill upon patient request if the prescription is for a schedule II opioid drug., 173, cm, 01/22/23 0:28:00 EDT, Height, 132.7, kg, 01/20/23 10:50:00 EDT, Dry Weight Start Date: 01/22/23 Stop Date: 02/21/23 Status: Ordered Quantity: 60.0 Unit: tablet Repeat number: 1 DEXCOM G7 SENSOR DEXCOM G7 SENSOR, USE 1 SENSOR EVERY 10 DAYS. Start Date: 01/28/24 Status: Ordered Repeat number: 1 Furosemide = 80 mg, Daily, 0 Refills, Maintenance, 06/21/24 7:28:00 PM EST, Partial fill upon patient request if the prescription is for a schedule II opioid drug. Start Date: 06/21/24 Status: Ordered Repeat number: 1 gabapentin 300 mg oral capsule 300 mg, 1, capsule, By Mouth, Daily at bedtime, Refills 0, Maintenance, 03/14/23 1:29:00 PM EDT, Partial fill upon patient request if the prescription is for a schedule II opioid drug. Start Date: 03/14/23 Status: Ordered Repeat number: 1 insulin glargine 100 units/mL subcutaneous solution = 25 units, Subcutaneous Injection, Daily, # 10 mL, 0 Refills, Maintenance, 07/03/24 10:20:00 AM EST,Injection, [facility], Partial fill upon patient request if the prescription is for aschedule II opioid drug., 180, cm, 07/02/24 23:59:00 EST, Height, 106.1, kg, 06/22/24 8:30:00 EST, Dry Weight Start Date: 07/03/24 Stop Date: 08/02/24 Status: Ordered Quantity: 10.0 Unit: mL Repeat number: 1 insulin isophane human recombinant 100 u/ml subcutaneous injection = 34 units, Subcutaneous Injection, Daily at bedtime, # 10 mL, 0 Refills, Maintenance, 07/03/24 10:19:00 AM EST, Injection, [facility], Partial fill upon patient request if the prescription is for a schedule II opioid drug., 180, cm, 07/02/24 23:59:00 EST, Height, 106.1, kg, 06/22/24 8:3 0:00 EST, Dry Weight Start Date: 07/03/24 Stop Date: 08/02/24 Status: Ordered Quantity: 10.0 Unit: mL Repeat number: 1 insulin lispro 100 u/ml subcutaneous injection 9-19 units, Subcutaneous Injection, 3 times a day before meals, << Sliding Scale Comments >> 100 - 149 9 units Call if less than 70 150 - 199 11 units 200 - 249 13 units 250 - 299 15 units 300 - 349 17 units 350 - 399 19 units Call if greater than 400 << Sliding Scale Comments >>, 0 Refills, Maintenance, 07/02/24 2:00:00 PM EST, Injection, Partial fill upon patient request if the prescription is for a schedule II opioid drug. Start Date: 07/02/24 Status: Ordered Repeat number: 1 midodrine 10 mg oral tablet 1 tablet = 10 mg, By Mouth, Every 12 hours, PRN Blood Pressure, 0 Refills, Maintenance, 06/21/24 7:27:00 PM EST, Partial fill upon patient request if the prescription is for a schedule II opioid drug. Start Date: 06/21/24 Status: Ordered Repeat number: 1 omeprazole 40 mg oral enteric coated capsule 1 capsule = 40 mg, By Mouth, Daily, # 30 capsule, 0 Refills, Maintenance, 01/28/24 5:28:00 AM EDT, ECCapsule, Partial fill upon patient request if the prescription is for a schedule II opioid drug. Start Date: 01/28/24 Status: Ordered Quantity: 30.0 Unit: capsule Repeat number: 1 oxyCODONE 5 mg oral tablet 5 mg, By Mouth, Every 8 hours, PRN, for 5 days, # 15 tablet, Refills 0, Tot. Refills 0, Acute 08/22/24 3:55:00 PM EST, Pain , Moderate, 08/17/24 3:55:00 PM EST, Route to Pharmacy Electronically, [facility], Partial fill upon patient request if the prescription is for a schedule II opioid drug., 180, cm, 08/17/24 14:08:00 EST, Height, 113.9, kg, 08/12/24 1:29:00 EST, Dry Weight Start Date: 08/17/24 Stop Date: 08/22/24 Status: Ordered Quantity: 15.0 Unit: tablet Repeat number: 1 Santyl 250 u/gm ointment 1 application, Topically, Daily, # 90 Gm, 3 Refills, Maintenance, 07/17/24 10:37:00 AM EST, Ointment, [facility]/pharmacy #[id number], Partial fill upon patient request if the prescription is for a schedule II opioid drug., 1 application Topically Daily, 180, cm, 07/02/24 23:59:00 EST, Height, 106.1, kg, 06/22/24 8:30:00 EST, Dry Weight Start Date: 07/17/24 Status: Ordered Quantity: 90.0 Unit: g Repeat number: 4 sertraline 50 mg oral tablet 1 tablet = 50 mg, By Mouth, Daily, 0 Refills, Maintenance, 06/21/24 7:25:00 PM EST, Partial fill upon patient request if the prescription is for a schedule II opioid drug. Start Date: 06/21/24 Status: Ordered Repeat number: 1 sevelamer carbonate 800 mg oral tablet 2 tablet = 1,600 mg, By Mouth, 3 times a day with meals, # 180 tablet, 0 Refills, Maintenance, 01/22/23 12:12:00 PM EDT, Tablet, [facility]/pharmacy #[id number], Partial fill upon patient request if the prescription is for a schedule II opioid drug., 173, cm, 01/22/23 0:28:00 EDT, Height, 132.7, kg, 01/20/23 10:5 0:00 EDT, Dry Weight Start Date: 01/22/23 Stop Date: 02/21/23 Status: Ordered Quantity: 180.0 Unit: tablet Repeat number: 1 tamsulosin 0.4 mg oral capsule 0.4 mg, 1, capsule, By Mouth, Daily at bedtime, # 30 capsule, Refills 0, Tot. Refills 0, Maintenance, 08/20/22 8:45:00 AM EST, Route to Pharmacy Electronically, [facility], Partial fill upon patient request if the prescription is for a schedule II opioid drug., 177.5, cm, 08/20/22 6:57:00 EST, Height, 133.6, kg, 08/13/22 0:23:00 EST, Dry Weight Start Date: 08/20/22 Stop Date: 09/19/22 Status: Ordered Quantity: 30.0 Unit: capsule Repeat number: 1 XL Brava Barrier Strips 61730 XL Brava Barrier Strips 49236, See Instructions, # 40 each, Refills 11, Tot. Refills 11, Maintenance, use as needed for ostomy maintaince. Dx colostomy Z93.3, 08/09/24 4:00:00 PM EST, Supply Start Date: 08/09/24 Status: Ordered Quantity: 40.0 Unit: each Repeat number: 12 Problem List Condition Confirmation Course Effective Dates Status H ealth Status Informant Chronic kidney disease-mineral and bone disorder Confirmed Active Peritoneal dialysis status Confirmed Active Diabetes Confirmed Active CKD (chronic kidney disease) stage V requiring chronic dialysis Confirmed Active ED (erectile dysfunction) Confirmed Active GERD (gastroesophageal reflux disease) Confirmed Active Glaucoma Confirmed Active Status post below-knee amputation of left lower extremity Confirmed Active HLD (hyperlipidemia) Confirmed Active Hypertension Confirmed Active HTN (hypertension) Confirmed Active Nocturnal hypoxia Confirmed Active Insulin dependent type 2 diabetes mellitus Confirmed Active Nephrolithiasis Confirmed Active Prostatic hypertrophy Confirmed Active Multinodular goiter Confirmed Active Diabetic neuropathy Confirmed Active CECIL (obstructive sleep apnea) Confirmed Active PAD (peripheral artery disease) Confirmed Active Diabetic retinopathy Confirmed Active Severe obesity (BMI 35.0-39.9) with comorbidity Confirmed Active Social History Social History Type Response Smoking Status Never (less than 100 in lifetime) entered on: 12/15/23 Sex Sex Representation Male (finding) Patient Care team information Care Team Personnel Name: Tomy Grady RN Position: [facility] RN Member Role: Primary Care Nurse Name: Pita Arriaza RN Position: [facility] RN Member Role: Primary Care Nurse Name: Tiffanie Cantu RN Position: [facility] RN Member Role: Primary Care Nurse Name: Ponce Wilkes RN Position: [facility] RN Member Role: Primary Care Nurse Name: Lanette Yeh RN Position: [facility] RN Member Role: Primary Care Nurse Name: Nadja Helms Position: [facility] Outreach Member Role: Lifetime Consulting Physician Name: Veronica Garibay Position: [facility] Associate Professional Member Role: Lifetime Consulting Provider Address: [address] [facility] [address] [facility] [place] [address]- Telecom: Name: Elizabeth Garcia RN Position: [facility] RN Member Role: Primary Care Nurse Name: Judson Alarcon RN Position: [facility] RN Member Role: Primary Care Nurse Name: Ira Harris RN Position: [facility] RN Member Role: Primary Care Nurse Name: Shereen Cortes MD Position: Reference Physician Member Role: PCP Address: [address] [place] [address]- Telecom: Name: Willa Ruiz MD Position: [facility] Renal MD Member Role: Lifetime Consulting Physician Address: [address] [facility] [address] [facility] [place] [address]- Telecom: Name: Lily Hooper RN Position: [facility] RN Member Role: Lifetime Consulting Physician Name: Dwayne Rollins MD Position: [facility] Renal MD Member Role: Lifetime Consulting Physician Address: [address] [facility] [address] [facility] [place] [address]- Telecom: Name: Kylie Rivera RN Position: [facility] RN Member Role: Primary Care Nurse Name: Tiara Coleman Position: [facility] AMB Nurse Member Role: Lifetime Consulting Physician Name: Donte Clark III, RN Position: [facility] RN Member Role: Primary Care Nurse Name: Meg Willis RN Position: [facility] RN Member Role: Primary Care Nurse Name: Tova Vidales RN Position: [facility] RN Member Role: Primary Care Nurse Name: Nathan Dumont RN Position: [facility] RN Member Role: Primary Care Nurse Name: Chelo Marie RN Position: [facility] RN Member Role: Primary Care Nurse Name: Soto Amador RN Position: [facility] RN Member Role: Primary Care Nurse Name: Blanche Garcia RN Position: [facility] RN Member Role: Primary Care Nurse Name: Mary Conti RN Position: [facility] Outreach Member Role: Lifetime Consulting Physician Name: Rafael Shah MD Position: [facility] Outreach Member Role: Lifetime Consulting Physician Address: [address] [facility] [address] Telecom: Name: Cherie Alcantar RN Position: S RN Member Role: Primary Care Nurse Name: Billie Goddard RN Position: S RN Member Role: Primary Care Nurse Name: Flower Gustafson RN Position: S RN Member Role: Primary Care Nurse Name: Cathi Mancini Position: S RN Member Role: Primary Care Nurse Name: Pietro Miranda MD Position: [facility] Renal MD Member Role: Lifetime Consulting Physician Address: [address] [facility] [address] Telecom: Name: Jessi Armenta RN Position: S RN Member Role: Primary Care Nurse Name: Tori Gould RN Position: S RN Member Role: Primary Care Nurse Name: Charley Cooper RN Position: S RN Member Role: Primary Care Nurse Name: Francis Mccann RN Position: S RN Member Role: Primary Care Nurse Care Team Related Persons Name: SHON MEDINA Insurance Providers Guarantor name[facility] Plan Information #: 1 Payer: [facility] [employer]/ONE CARE Member Number: NA Policy Number: NA Group Number: NA
--- OUTSIDE RECORDS SUMMARY | 2024-09-05 08:08 | XMS_ITS | Encounter Summary ---
Author Organization [facility] Address [address] [phone] Phone Care Team Providers Care Sales Agent Financial Report Service Name Role Phone Malou Cortes MD Primary Care Provider [phone] Encounter Details Date Type Department Care Team ([facility] st Contact Info) Description 08/21/2024 Treatment [facility] [address] [phone] Nataliia Metzger MD [address] [phone] Social History Tobacco Use Types Packs/Day Years Used Date Smoking Tobacco: Never Smokeless Tobacco: Never Alcohol Use Standard Drinks/Week Comments No 0 (1 standard drink = 0.6 oz pur e alcohol) Sex and Gender Information Value Date Recorded Sex Assigned at Not on file Legal Sex Male 4:43 PM EST Gender Identity Not on file Sexual Orientation Not on file documented as of this encounter Miscellaneous Notes * Dialysis Note - Nataliia Metzger MD - 08/21/2024 12:00 AM EST Patient: Moustapha Ruiz : 1965 Note Type: Dialysis Rounds-PD Service Date: 08/21/2024 This patient was personally seen for a complete visit as part of routine monthly dialysis care for end stage renal disease. Attending Plunger Scoop Operator: NATALIIA METZGER MD Dialysis Location: [facility] Patient is stable. HOME MEDICATIONS Current [facility] Medications allopurinol (ZYLOPRIM) 100 MG tablet TAKE 1 TABLET BY MOUTH 1 TIME EACH DAY. Start Date: 03/14/2024 amLODIPine (NORVASC) 10 MG tablet TAKE 1/2 TABLET BY MOUTH ONCE DAILY Start Date: 05/21/2024 amLODIPine (NORVASC) 5 MG tablet Take 1 tablet (5 mg total) by mouth 1 (one) time each day Start Date: 12/21/2023 atorvastatin (LIPITOR) tablet Take 10 mg by mouth 1 (one) time each day Start Date: bumetanide (BUMEX) 1 MG tablet Take 3 tablets (3 mg total) by mouth in the morning and 3 tablets (3 mg total) in the evening. Start Date: 11/03/2022 carvedilol (COREG) 6.25 MG tablet TAKE 1 TABLET (6.25 MG TOTAL) BY MOUTH IN THE MORNING AND IN THE EVENING WITH MEALS Start Date: 06/13/2024 CENTRUM SILVER 50+MEN PO Take 1 tablet by mouth 1 (one) time each day Start Date: D3 SUPER STRENGTH 50 MCG (2000 UT) PO CAPS Take 1 capsule by mouth 1 (one) time each day Start Date: 12/10/2022 ergocalciferol (Drisdol) 1.25 MG (66123 UT) capsule Take 1 capsule (50,000 Units total) by mouth 1 (one) time per week Start Date: 01/10/2024 gabapentin (NEURONTIN) tablet Take 1 tablet by mouth 2 (two) times a day Start Date: hydrALAZINE 25 MG tablet Take 3 tablets (75 mg total) by mouth in the morning and 3 tablets (75 mg total) at noon and 3 tablets (75 mg total) in the evening. Start Date: 12/20/2022 ketorolac (ACULAR) ophthalmic solution PUT 1 DROP IN LEFT EYE 4 TIMES A DAY Start Date: 11/19/2022 midodrine (PROAMATINE) 10 MG tablet Take 1 tablet (10 mg total) by mouth every 12 (twelve) hours if needed (take for systolic blood pressure less than 100) Start Date: 05/02/2024 midodrine (PROAMATINE) 5 MG tablet Take 1 tablet (5 mg total) by mouth in the morning and 1 tablet (5 mg total) in the evening and 1 tablet (5 mg total) before bedtime. Hold if SBP is greater than 120.. Start Date: 02/14/2024 NOVOLOG FLEXPEN 100 UNIT/ML SC SOPN PLEASE SEE ATTACHED FOR DETAILED DIRECTIONS Start Date: 11/01/2022 sevelamer carbonate (RENVELA) 800 MG tablet Take 2 tablets (1,600 mg total) by mouth 1 (one) time each day Swallow tablet whole; do not crush, break, or chew. Start Date: 05/21/2024 tamsulosin (FLOMAX) 24 hr capsule 0.4 mg Take 0.4 mg by mouth 1 (one) time each day Start Date: HODA SOLOSTAR 300 UNIT/ML SC SOPN INJECT 10 UNITS INTO THE SKIN AT BEDTIME. Start Date: 09/02/2021 Current [facility] Allergies Allergen: CEPHALEXIN Reaction: Other (see comments) Allergen: METFORMIN Reaction: Other (see comments) BP AND FLUID ASSESSMENT Acceptable blood pressure. Fluid status acceptable. ADEQUACY ASSESSMENT Target met. Prescription compliance acceptable. Kt/V, Total 1.76 (07/06/24) Kt/V, Residual 0.65 (07/06/24) UREA REDUCTION RATIO (%) 77 (05/30/24) 73 (05/11/24) 66 (05/02/24) BUN 37 (08/09/24) 35 (07/06/24) 33 (06/14/24) BUN Post Dialysis 6 (05/30/24) 7 (05/11/24) 11 (05/02/24) Creatinine 4.66 (08/09/24) 4.72 (07/06/24) 3.68 (06/14/24) Bicarbonate (CO2) 23 (08/09/24) 25 (07/06/24) 24 (06/14/24) Sodium 134 (08/09/24) 136 (07/06/24) 132 (06/14/24) Urine Volume 600 (07/06/24) ACCESS ASSESSMENT Access is perfect. ANEMIA ASSESSMENT [place] adjusted per protocol. Iron adjusted per protocol. Hgb 10.5 (08/09/24) 10.2 (07/06/24) 10.0 (06/14/24) Iron Saturation (TSat) 25 (08/09/24) 22 (07/06/24) 15 (06/14/24) Ferritin 1,121 (08/09/24) 1,577 (07/06/24) 1,772 (06/14/24) Iron 38 (08/09/24) 48 (07/06/24) 24 (06/14/24) TIBC 154 (08/09/24) 223 (07/06/24) 155 (06/14/24) MCV 92.0 (08/09/24) 93.4 (07/06/24) 91.3 (06/14/24) Platelets 300 (08/09/24) 246 (07/06/24) 293 (06/14/24) BMM ASSESSMENT Bone and mineral metabolism parameters reviewed. Calcium, Adjusted Total 9.4 08/09/24 9.3 07/06/24 9.0 06/14/24 Calcium 8.9 08/09/24 9.3 07/06/24 8.8 06/14/24 Phosphorus, Serum 4.7 08/09/24 4.5 07/06/24 3.4 06/14/24 Ca*PO4 41.8 08/09/24 41.8 07/06/24 29.9 06/14/24 PTH, Intact 304 08/09/24 243 07/06/24 448 06/14/24 Vitamin D, 25-Hydroxy 45 06/14/24 48 04/20/24 Magnesium 1.5 08/09/24 1.9 07/06/24 1.9 06/14/24 Alkaline Phosphatase 101 08/09/24 137 07/06/24 83 06/14/24 Aluminum 6 07/06/24 3 04/20/24 NUTRITION ASSESSMENT Albumin not at goal. Albumin 3.4 08/09/24 4.1 07/06/24 3.7 06/14/24 Potassium 4.2 08/09/24 4.3 07/06/24 3.6 06/14/24 Hemoglobin A1C 7.4 07/06/24 6.4 06/14/24 7.3 04/20/24 PHYSICAL EXAM Exam performed. Vital Signs Reviewed. Lungs - Clear. CV - Blood pressure noted. CV - RRR. No edema. EXT - No ulcers. ADDITIONAL LABS White Blood Cells 10.4 (08/09/24) 10.0 (07/06/24) 7.2 (06/14/24) Cholesterol 135 (07/06/24) 119 (06/14/24) 97 (04/20/24) HDL 41 (07/06/24) 38 (06/14/24) 38 (04/20/24) LDL-Calc 82 (07/06/24) 60 (06/14/24) 32 (04/20/24) Triglycerides 61 (07/06/24) 103 (06/14/24) 135 (04/20/24) Hep B Surface Antibody <4 (04/27/24) 5 (04/20/24) Uric Acid 6.6 (07/06/24) 6.8 (06/14/24) 3.8 (04/20/24) Signed by: NATALIIA METZGER MD on 08/21/2024 at 04:04:04 PM documented in this encounter Plan of Treatment Not on file documented as of this encounter Visit Diagnoses Not on filedocumented in this encounter Care Teams Sales Agent Financial Report Service Relationship Specialty Start Date End Date Malou Cortes MD [facility] [place], [place] [id number] PCP - General 07/07/20 documented as of this encounter
--- OUTSIDE RECORDS SUMMARY | 2024-09-05 08:08 | XMS_ITS | Continuity of Care Document ---
Author Organization [facility] Address [address] [place] [address] ve [address] [place] [address]- Care Team Providers Care Erco Machine Operator Name Role Phone Sebastian CASTRO, Shereen Banerjee Primary Care Physician Encounter [facility] Date(s): 08/07/24 - 08/14/[address] [place], [place] [address] Attending Physician: Luis M CASTRO, Vesta Jaquez Encounter Type: Office Visit Allergies, Adverse Reactions, Alerts Substance Criticality Severity [...] influenza virus vaccine, inactivated 03/26/16 Jeremiah rded [id number] 12y+ bivalent booster vax 06/14/22 Recorded zoster vaccine, inactivated 10/13/21 Recorded SARS-CoV-2 mRNA ([id number]) vax 10/13/21 Recorded SARS-CoV-2 (COVID-19) mRNA BNT-162b2 [...] 07/02/24 1:56:00 PM EST,Route to Pharmacy Electronically, [facility], Partial fill upon patient [...] Refills, Maintenance, 07/02/24 1:56:00 PM EST, Capsule, [facility], Partial fill upon patient [...] PM EDT, Route to Pharmacy Electronically, [facility]acy #[id number], Partial fill upon patient request if the prescription is for a schedule II opioid drug., 173, cm, 01/22/23 0:28:00 EDT, Height, 132.7, kg, 01/20/23 10:50:00 EDT, Dry Weight Start Date: 01/22/23 Stop Date: 02/21/23 Status: Ordered Quantity: 60.0 Unit: tablet Repeat number: 1 DEXCOM G7 SENSOR DEXCOM G7 SENSOR, USE 1 SENSOR EVERY 10 DAYS. Start Date: 01/28/24 Status: Ordered Repeat number: 1 Doxycycline Maintenance, 08/07/24 9:59:00 AM EST Start Date: 08/07/24 Status: Ordered Repeat number: 1 Doxycycline Maintenance, 08/07/24 12:08:00 PM EST Start Date: 08/07/24 Status: Ordered Repeat number: 1 Furosemide = [...] 0 Refills, Maintenance, 07/03/24 10:20:00 AM EST,Injection, [facility], Partial fill upon patient [...] Refills, Maintenance, 07/03/24 10:19:00 AM EST, Injection, [facility], Partial fill upon patient [...] Quantity: 30.0 Unit: capsule Repeat number: 1 Santyl 250 u/gm ointment 1 application, Topically, Daily, # 90 Gm, 3 Refills, Maintenance, 07/17/24 10:37:00 AM EST, Ointment, [facility]/pharmacy #[id number], Partial fill upon patient request [...] Maintenance, 01/22/23 12:12:00 PM EDT, Tablet, [facility]/pharmacy #[id number], Partial fill upon patient request [...] 8:45:00 AM EST, Route to Pharmacy Electronically, [facility], Partial fill upon patient request if the prescription is for a schedule II opioid drug., 177.5, cm, 08/20/22 6:57:00 EST, Height, 133.6, kg, 08/13/22 0:23:00 EST, Dry Weight Start Date: 08/20/22 Stop Date: 09/19/22 Status: Ordered Quantity: 30.0 Unit: capsule Repeat number: 1 XL Brava Barrier Strips 08105 XL Brava Barrier Strips 74198, See Instructions, # 40 each, Refills 11, [...] obesity (BMI 35.0-39.9) with comorbidity Confirmed Active Vital Signs Most recent to oldest [Reference Range]: 1 Height 180 cm (08/07/24 9:55 AM) Pulse Rate [55-90 bpm] 90 bpm (08/07/24 9:55 AM) Blood Pressure [90-138/55-84 mm Hg] 127/ 76mm Hg (08/07/24 9:55 AM) Respiratory Rate [16-30 br/min] 17 br/mi n (08/07/24 9:55 AM) Temperature [96.8-100.4 DegF] 97.9 DegF (08/07/24 9:55 AM) Temperature Route Temporal (08/07/24 9:55 AM) Social History Social History Type Response Smoking Status Never (less than 100 in lifetime) entered on: 12/15/23 Sex Sex Representation Male (finding) Patient Care team information Care Team Personnel Name: Tomy Grady RN Position: S RN Member Role: Primary Care Nurse Name: Pita Arriaza RN Position: S RN Member Role: Primary Care Nurse Name: Tiffanie Cantu RN Position: S RN Member Role: Primary Care Nurse Name: Ponce Wilkes RN Position: S RN Member Role: Primary Care Nurse Name: Lanette Yeh RN Position: [facility] RN Member Role: Primary Care Nurse Name: Nadja Helsm Position: [facility] Outreach Member Role: Lifetime Consulting Physician Name: Veronica Garibay Position: [facility] Associate Professional Member Role: Lifetime Consulting Provider Address: [address] [facility] [address] [facility] [address] Telecom: Name: Elizabeth Garcia RN Position: [facility] RN Member Role: Primary Care Nurse Name: Judson Alarcon RN Position: [facility] RN Member Role: Primary Care Nurse Name: Ira Harris RN Position: [facility] RN Member Role: Primary Care Nurse Name: Shereen Cortes MD Position: Reference Physician Member Role: PCP Address: [address] [place], [place] [address] Telecom: Name: Willa Ruiz MD Position: [facility] Renal MD Member Role: Lifetime Consulting Physician Address: [facility] [facility] [address] [facility] [address] Telecom: Name: Lily Hooper RN Position: [facility] RN Member Role: Lifetime Consulting Physician Name: Dwayne Rollins MD Position: [facility] Renal MD Member Role: Lifetime Consulting Physician Address: [address] [facility] [address] [facility] [place], [place] [address] Telecom: Name: Kylie Rivera RN Position: [facility] RN Member Role: Primary Care Nurse Name: Tiara Coleman Position: [facility] AMB Nurse Member Role: Lifetime Consulting Physician Name: Donte Clark III, RN Position: [facility] RN Member Role: Primary Care Nurse Name: Meg Willis RN Position: [facility] RN Member Role: Primary Care Nurse Name: Tova Vidales RN Position: [facility] RN Member Role: Primary Care Nurse Name: Nathan Dumont RN Position: [facility] RN Member Role: Primary Care Nurse Name: Chelo Marie RN Position: [facility] RN Member Role: Primary Care Nurse Name: Soto Amador RN Position: [facility] RN Member Role: Primary Care Nurse Name: Mary Conti RN Position: [facility] Outreach Member Role: Lifetime Consulting Physician Name: Rafael Shah MD Position: S Outreach Member Role: Lifetime Consulting Physician Address: [address] [facility] [address] Telecom: Name: Cherie Alcantar RN Position: S RN Member Role: Primary Care Nurse Name: Billie Goddard RN Position: S RN Member Role: Primary Care Nurse Name: Flower Gustafson RN Position: S RN Member Role: Primary Care Nurse Name: Cathi Mancini Position: S RN Member Role: Primary Care Nurse Name: Pietro Miranda MD Position: [facility] Renal MD Member Role: Lifetime Consulting Physician Address: [address] [facility] [address] Telecom: Name: Jessi Armenta RN Position: S RN Member Role: Primary Care Nurse Name: Tori Gould RN Position: [facility] RN Member Role: Primary Care Nurse Name: Francis Mccann RN Position: S RN Member Role: Primary Care Nurse Care Team Related Persons Name: SHON MEDINA Insurance Providers Guarantor name: PAKO CAROL Health Plan Information #: 1 Payer: [employer] Member Number: [id number] Policy Number: NA Group Number: [facility] Health Plan Information #: 2 Payer: [employer] Member Number: [id number] Policy Number: NA Group Number: NA
--- OUTSIDE RECORDS SUMMARY | 2024-09-05 08:08 | XMS_ITS ---
Author Organization [facility] Address [address] [place] [address] Care Team Providers Care Box Cutter Name Role Phone Sebastian CASTRO, Shereen Primary Care Provider Donte [facility] [phone] REASON FOR VISIT Patient presents today for DYSPHAGIA, EPIGASTRIC PAIN Encounters Encounter Location Date Provider Diagnosis [facility] [address] [address] 03/09/2024 Donte Ching Plan Of Treatment No Information Progress Notes * PAKO MEDINADOB:[birth year] (59 yo M)Acc No.[id number]:03/09/2024 Progress Notes Patient:?PAKO MEDINA Provider:?Donte Ching MD :1965???Age:58 Y???Sex:Male Noel e:03/09/2024 Address:[address] [place], [place] [id number] Pcp:Shereen Cortes MD Subjective: * Chief Complaints: * ???1. Patient presents today for DYSPHAGIA, EPIGASTRIC PAIN. * Medical History:? Objective: * Vitals:? Assessment: Plan: * Treatment: * * The named appointment provid er may or may not be the originator of this progress note, and it is not deemed complete until electronically signed by the appointment provider. Sign off status: Pending * Provider:?Donte Ching MD Date:? 024 Generated for Hermelinda montiel/Juan Carlos/Zoya on:?09/05/2024 08:08 AM EDT
--- OUTSIDE RECORDS SUMMARY | 2024-09-05 08:08 | XMS_ITS | Encounter Summary ---
Author Organization [facility] Address [address] [place] [address] Phone Care Team Providers Care Advertising Account Manager Name Role Phone Malou Cortes MD Primary Care Provider [phone]- [phone] Reason for Visit * Reason Comments Med Refill Encounter Details Date Type Department Care Team (Late st Contact Info) Description 08/06/2020 Refill [facility] [address] [place] [phone] Catalino Mancia MD Social History Tobacco Use Types Packs/Day Years Used Date Smoking Tobacco: Never Alcohol Use Standard Drinks/Week Comments No 0 (1 standard drink = 0.6 oz pur e alcohol) Sex and Gender Information Value Date Recorded Sex Assigned at Not on file Legal Sex Male 4:43 PM EST Gender Identity Not on file Sexual Orientation Not on file documented as of this encounter Plan of Treatment Not on file documented as of this encounter Visit Diagnoses Not on filedocumented in this encounter Care Teams Advertising Account Manager Relationship Specialty Start Date End Date Malou Cortes MD [facility] [place] [address] PCP - General 07/07/20 documented as of this encounter
--- OUTSIDE RECORDS SUMMARY | 2024-09-05 08:08 | XMS_ITS | Encounter Summary ---
Author Organization [facility] Address [address] [place] [address] Phone Care Team Providers Care Water Aerobics Instructor Name Role Phone Malou Cortes MD Primary Care Provider [phone]- [phone] Reason for Visit * Reason Comments Med Refill Encounter Details Date Type Department Care Team (Late st Contact Info) Description 07/29/2022 Refill [facility] [address] [place] [phone] Rafael Shah MD Social History Tobacco Use Types Packs/Day Years Used Date Smoking Tobacco: Never Smokeless Tobacco: Never Alcohol Use Standard Drinks/Week Comments No 0 (1 standard drink = 0.6 oz pur e alcohol) Sex and Gender Information Value Date Recorded Sex Assigned at Not on file Legal Sex Male 4:43 PM EST Gender Identity Not on file Sexual Orientation Not on file COVID-19 Exposure Response Date Recorded In the last 10 days, have yo u been in contact with someone who was confirmed or suspected to have Coronavirus/COVID-19? No / Unsure 07/28/2022 7:43 PM EST documented as of this encounter Plan of Treatment Not on file documented as of this encounter Visit Diagnoses Not on filedocumented in this encounter Care Teams Water Aerobics Instructor Relationship Specialty Start Date End Date Malou Cortes MD [address] [place] [address] PCP - General 07/07/20 documented as of this encounter
--- OUTSIDE RECORDS SUMMARY | 2024-09-05 08:08 | XMS_ITS | Clinical Summary ---
Author Organization [facility] Address [address] [place] [address] Phone Care Team Providers Care Pointer Helper Name Role Phone Maluo Cortes MD Primary Care Provider [phone] Allergies Active Allergy Reactions Criticality Noted Date Comments Cephalexin Other (see comments) 08/29/2020 Metformin Other (see comments) 08/29/2020 Medications gabapentin (NEURONTIN) 600 MG tablet Take 1 tablet by mouth 2 (two) times a day Active Toujeo SoloStar 300 UNIT/ML solution pen-injector INJECT 10 UNITS INTO THE SKIN AT BEDTIME. 2 Active atorvastatin (LIPITOR) 10 MG tablet Take 10 mg by mouth 1 (one) time each day Active tamsulosin (Flomax) 0.4 MG 24 hr capsule Take 0.4 mg by mouth 1 (one) time each day Active Multiple Vitamins-Minera ls (CENTRUM SILVER 50+MEN PO) Take 1 tablet by mouth 1 (one) time each day Active bumetanide (BUMEX) 1 MG tablet Take 3 tablets (3 mg total) by mouth in the morning and 3 tablets (3 mg total) in the evening. 540 tablet 3 3 Active NovoLOG FLEXPEN 100 UNIT/ML injection PLEASE SEE ATTACHED FOR DETAILED DIRECTIONS 3 Active D3 Super Strength 50 MCG (2000 UT) capsule Take 1 capsule by mouth 1 (one) time each day 3 Active ketorolac (ACULAR) 0.5 % ophthalmic solution PUT 1 DROP IN LEFT EYE 4 TIMES A DAY 3 Active hydrALAZINE 25 MG tablet Take 3 tablets (75 mg total) by mouth in the morning and 3 tablets (75 mg total) at noon and 3 tablets (75 mg total) in the evening. 270 tablet 3 3 Active amLODIPine (NORVASC) 5 MG tablet Take 1 tablet (5 mg total) by mouth 1 (one) time each day 90 tablet 3 4 12/21/19 25 Active ergocalciferol (Drisdol) 1.25 MG (52062 UT) capsule Take 1 capsule (50,000 Units total) by mouth 1 (one) time per week 12 capsule 3 4 01/10/20 25 Active midodrine (PROAMATINE) 5 MG tablet Take 1 tablet (5 mg total) by mouth in the morning and 1 tablet (5 mg total) in the evening and 1 tablet (5 mg total) before bedtime. Hold if SBP is greater than 120.. 270 tablet 1 4 02/14/20 25 Active allopurinol (ZYLOPRIM) 100 MG tablet TAKE 1 TABLET BY MOUTH 1 TIME EACH DAY. 90 tablet 1 4 Active midodrine (PROAMATINE) 10 MG tablet Take 1 tablet (10 mg total) by mouth every 12 (twelve) hours if needed (take for systolic blood pressure less than 100) 60 tablet 5 4 10/30/19 25 Active sevelamer carbonate (RENVELA) 800 MG tablet Take 2 tablets (1,600 mg total) by mouth 1 (one) time each day Swallow tablet whole; do not crush, break, or chew. 180 tablet 3 4 Active amLODIPine (NORVASC) 10 MG tablet TAKE 1/2 TABLET BY MOUTH ONCE DAILY 45 tablet 7 4 Active carvedilol (COREG) 6.25 MG tablet TAKE 1 TABLET (6.25 MG TOTAL) BY MOUTH IN THE MORNING AND IN THE EVENING WITH MEALS 180 tablet 1 4 Active Active Problems Problem Noted Date Diagnosed Date Severe obesity 10/04/2022 Stage 5 chronic kidney disease 10/04/2022 Hypertension 09/30/2021 Hypertensive disorder 07/28/2021 Stage 3b chronic kidney disease 10/31/2020 Stage 3a chronic kidney disease 08/29/2020 Hypertensive renal disease 08/29/2020 Renal stone 08/29/2020 Hyperkalemia 08/29/2020 Resolved Problems Problem Noted Date Diagnosed Date Resolved Date Diabetes mellitus 07/28/2021 07/28/2021 Multinodular goiter 07/28/2021 07/28/19 22 Open wound of foot with complication 07/28/2021 07/28/2021 Encounters Date Type Department Care Team Description 08/21/2024 Treatment [facility] [address] [facility] [address] [place] [address] Gualberto Ruiz MD 07/10/2024 Treatment [facility] [address] [facility] [address] [place] [address] Gualberto Riuz MD 06/13/2024 Treatment [facility] [address] [facility] [address] [place] [address] Gualberto Ruiz MD 06/13/2024 Refill [facility] [address] [place] [address] [place] [address] Gerson Curiel MD from Last 3 Months Immunizations Name Administration Dates Next Due Influenza, Unspecified 08/12/2020 Pfizer SARS-COV-2 09/25/2020,09/04/2020 Shingrix 10/13/2021 Tdap 11/09/2016 Family History Medical History Relation Comments Diabetes Father Hypertension Father Kidney disease Father Relation Status Comments Father Mother Social History Tobacco Use Types Packs/Day Years Used Date Smoking Tobacco: Never Smokeless Tobacco: Never Tobacco Cessation:Counseling Given: No Alcohol Use Standard Drinks/Week Comments No 0 (1 standard drink = 0.6 oz pur e alcohol) Sex and Gender Information Value Date Recorded Sex Assigned at Not on file Legal Sex Male 4:43 PM EST Gender Identity Not on file Sexual Orientation Not on file Last Filed Vital Signs Vital Sign Reading Time Taken Comments Blood Pressure 150/74 12/20/2022 2:18 PM EDT Pulse 68 12/20/2022 2:18 PM EDT Temperature - - Respiratory Rate - - Oxygen Saturation 98% 07/29/2021 3:08 PM EST Inhaled Oxygen Concentration - - Weight 136 kg (300 lb) 12/20/2022 2:18 PM EDT Height 180.3 cm (5' 11 ) 02/20/2020 12:00 PM EDT Body Mass Index 41.84 02/20/2020 12:00 PM EDT Plan of Treatment Health Maintenance Due Date Last Done Comments Pneumococcal Vaccine: Pediat rics (0 to 5 Years) and At-Risk Patients (6 to 64 Years) (1 of 2 - PCV) 1973 Hepatitis B Vaccine (1 of 5 - Risk Dialysis 4-dose series) 1987 Colorectal Cancer Screening: Annual FOBT 2016 Colorectal Cancer Screening: Colonoscopy 2016 Colorectal Cancer Screening: Sigmoidoscopy 2016 Influenza Vaccine (#1) 2024 04/16/2021, 2020 Diabetes: Ophthalmology Exam 08/12/2024 Diabetes: Pedal Pulse Checked 08/12/2024 Diabetes: Sensory Foot Exam 08/12/2024 Diabetes: Visual Foot Exam 08/12/2024 Diabetes: Hemoglobin A1C 10/04/2024 025, 06/14/2024, 2024, Additional history exists Procedures Procedure Name Priority Date/Time Associated Diagnosis Comments HEPATITIS B SURFACE ANTIGEN W/REFL CONFIRM Routine 08/09/2024 3:00 AM EST TRANSFERRIN SATURATION Routine 3:00 AM EST PROTEIN, TOTAL, SERUM Routine 08/09/2024 3:00 AM EST MAGNESIUM Routine 08/09/2024 3:00 AM EST ELECTROLYTE PANEL Routine 08/09/2024 3:0 0 AM EST LIH (HC) Routine 08/09/2024 3:00 AM EST LACTATE DEHYDROGENASE Routine 08/09/2024 3:00 AM EST GLUCOSE, RANDOM Routine 08/09/2024 3:00 AM EST BILIRUBIN, TOTAL Routine 08/09/2024 3:00 AM EST CREATININE, SERUM Routine 08/09/2024 3:0 0 AM EST BUN Routine 08/09/2024 3:00 AM EST AST Routine 08/09/2024 3:00 AM EST ALT Routine 08/09/2024 3:00 AM EST ALKALINE PHOSPHATASE Routine 08/09/2024 3:00 AM EST CALCIUM PHOSPHORUS PRODUCT, ADJUSTED (HC) Routine 08/09/2024 3:00 AM EST PTH, INTACT Routine 08/09/2024 3:00 AM EST FERRITIN Routine 08/09/2024 3:00 AM EST CBC AND DIFFERENTIAL Routine 08/09/2024 3:00 AM EST ALUMINUM LEVEL Routine 07/06/2024 3:00 AM EST HEMOGLOBIN A1C Routine 07/06/2024 3:00 AM EST HEPATITIS C ABS W/REFLEX RNA DETECTR Routine 07/06/2024 3:00 AM EST CONFIRMATION TEST HCV Routine 07/06/2024 3:00 AM EST HEPATITIS B SURFACE ANTIGEN W/REFL CONFIRM Routine 07/06/2024 3:00 AM EST TRANSFERRIN SATURATION Routine 3:00 AM EST URIC ACID Routine 07/06/2024 3:00 AM EST PROTEIN, TOTAL, SERUM Routine 07/06/2024 3:00 AM EST MAGNESIUM Routine 07/06/2024 3:00 AM EST LIPID PANEL Routine 07/06/2024 3:00 AM EST ELECTROLYTE PANEL Routine 07/06/2024 3:0 0 AM EST LIH (HC) Routine 07/06/2024 3:00 AM EST GLUCOSE, RANDOM Routine 07/06/2024 3:00 AM EST LACTATE DEHYDROGENASE Routine 07/06/2024 3:00 AM EST BILIRUBIN, TOTAL Routine 07/06/2024 3:00 AM EST AST Routine 07/06/2024 3:00 AM EST ALT Routine 07/06/2024 3:00 AM EST ALKALINE PHOSPHATASE Routine 07/06/2024 3:00 AM EST CALCIUM PHOSPHORUS PRODUCT, ADJUSTED (HC) Routine 07/06/2024 3:00 AM EST FERRITIN Routine 07/06/2024 3:00 AM EST PTH, INTACT Routine 07/06/2024 3:00 AM EST CBC Routine 07/06/2024 3:00 AM EST GLUCOSE, URINE, 24 HOUR Routine 07/06/2024 3:00 AM EST COLLECTION DATE (HC) Routine 07/06/2024 3:00 AM EST PD ADEQUECY BUNDLED Routine 07/06/2024 3 :00 AM EST FERRITIN Routine 06/14/2024 3:00 AM EST HEMOGLOBIN A1C Routine 06/14/2024 3:00 AM EST RETICULOCYTES Routine 06/14/2024 3:00 AM EST HEPATITIS C ABS W/REFLEX RNA DETECTR Routine 06/14/2024 3:00 AM EST CONFIRMATION TEST HCV Routine 06/14/2024 3:00 AM EST HEPATITIS B CORE AB TOTAL Routine 06/14/2024 3:00 AM EST PROTEIN, TOTAL, SERUM Routine 06/14/2024 3:00 AM EST TRANSFERRIN SATURATION Routine 3:00 AM EST ELECTROLYTE PANEL Routine 06/14/2024 3:0 0 AM EST URIC ACID Routine 06/14/2024 3:00 AM EST MAGNESIUM Routine 06/14/2024 3:00 AM EST LIH (HC) Routine 06/14/2024 3:00 AM EST LIPID PANEL Routine 06/14/2024 3:00 AM EST GLUCOSE, RANDOM Routine 06/14/2024 3:00 AM EST LACTATE DEHYDROGENASE Routine 06/14/2024 3:00 AM EST BUN Routine 06/14/2024 3:00 AM EST CREATININE, SERUM Routine 06/14/2024 3:0 0 AM EST AST Routine 06/14/2024 3:00 AM EST BILIRUBIN, TOTAL Routine 06/14/2024 3:00 AM EST ALT Routine 06/14/2024 3:00 AM EST ALKALINE PHOSPHATASE Routine 06/14/2024 3:00 AM EST CALCIUM PHOSPHORUS PRODUCT, ADJUSTED (HC) Routine 06/14/2024 3:00 AM EST VITAMIN D 25 HYDROXY Routine 06/14/2024 3:00 AM EST PTH, INTACT Routine 06/14/2024 3:00 AM EST CBC AND DIFFERENTIAL Routine 06/14/2024 3:00 AM EST from Last 3 Months Results * LIH (08/09/2024 3:00 AM EST) Only the most recent of3 resultswithin the time period is included. Lipemia Normal Normal [facility] Icterus Normal Normal [facility] Hemolysis Normal Normal [facility] 08/09/2024 3:00 AM EST 08/10/2024 2:24 PM EST us Gualberto Ruiz MD LAB [id number] ICITED RESULTS Final Result [facility] [address] [place] [address] * (ABNORMAL) Calcium Phosphorus Product, Adjusted (08/09/2024 3:00 AM EST) Only the most recent of3 resultswithin the time period is included. Albumin 3.4(L) 3.6 - 5.4 g/dL [facility] Calcium 8.9 8.6 - 10.3 mg/dL [facility] Phosphorus, Serum 4.7 2.5 - 5.0 mg/dL [facility] Ca*PO4 41.8 <55.0 mg2/dL2 [facility] Calcium, Adjusted Total 9.4 8.6 - 10.3 mg/dL [facility] CA*PO4 CORRCTD 44.2 <55.0 mg2/dL2 [facility] 08/09/2024 3:00 AM EST 08/10/2024 2:24 PM EST us Gualberto Ruiz MD LAB [id number] ICITED RESULTS Final Result Performing Organization Address [facility] Co de Phone Number [facility] [address] [place] [address] * Hepatitis B Surface Ag w/Reflex Confirmation (08/09/2024 3:00 AM EST) Only the most recent of2 resultswithin the time period is included. Hep B Surface Antigen Negative Negative [facility] 08/09/2024 3:00 AM EST 08/10/2024 2:24 PM EST Gualberto Ruiz MD LAB BLOOD ORDERABLES Final Resul t Performing Organization Address [facility] de Phone Number [facility] [address] [place] [address] * (ABNORMAL) TSAT (08/09/2024 3:00 AM EST) Only the most recent of3 resultswithin the time period is included. Pathologist [facility] Iron 38(L) 65 - 175 ug/dL [facility] Transferrin 110(L) 215 - 365 mg/dL [facility] TIBC 154(L) 211 - 406 ug/dL [facility] Iron Saturation (TSat) 25 22 - 52 % [facility] 08/09/2024 3:00 AM EST 08/10/2024 2:24 PM EST us Gualberto Ruiz MD LAB BLOOD ORDERABLES Final Resul t Performing Organization Address [facility] de Phone Number [facility] [address] [place] [address] * (ABNORMAL) CBC and Differential (08/09/2024 3:00 AM EST) Only the most recent of2 resultswithin the time period is included. Pathologist [facility] DIFFERENTIAL MANUAL, 2 Not Indicated [facility] White Blood Cells 10.4(H) 4.2 - 9.1 K/uL [facility] RBC 3.63(L) 4.63 - 6.08 M/uL [facility] Hgb 10.5(L) 13.7 - 17.5 g/dL [facility] Hemoglobin x 3 31.5(L) 41.1 - 52.5 g/dL [facility] Hematocrit 33.4(L) 40.1 - 51.0 % [facility] MCV 92.0 79.0 - 92.2 fL [facility] MCH 28.9 25.7 - 32.2 pg [facility] MCHC 31.4(L) 32.3 - 36.5 g/dL [facility] Platelets 300 163 - 337 K/uL [facility] RDW 15.7(H) 11.6 - 14.4 % [facility] Neutrophils Relative 77.0(H) 34.0 - 67.9 % [facility] Lymphocytes Relative 12.9(L) 21.8 - 53.1 % [facility] Monocytes 6.2 5.3 - 12.2 % [facility] Eosinophils Relative 1.8 0.8 - 7.0 % [facility] Basophils Relative 0.5 0.2 - 1.2 % [facility] Immature Granulocytes 1.6(H) 0.0 - 1.0 % [facility] 08/09/2024 3:00 AM EST 08/10/2024 2:19 PM EST us Gualberto Ruiz MD LAB BLOOD ORDERABLES Final Resul t Performing Organization Address [facility] Co de Phone Number [facility] [address] [place] [address] * (ABNORMAL) BUN (08/09/2024 3:00 AM EST) Only the most recent of2 resultswithin the time period is included. BUN 37(H) 7 - 25 mg/dL [facility] 08/09/2024 3:00 AM EST 08/10/2024 2:24 PM EST us Gualberto Ruiz MD LAB BLOOD ORDERABLES Final Resul t Performing Organization Address [facility] Co de Phone Number [facility] [address] [place] [address] * ALT (08/09/2024 3:00 AM EST) Only the most recent of3 resultswithin the time period is included. ALT (SGPT) 19 10 - 49 U/L [facility] 08/09/2024 3:00 AM EST 08/10/2024 2:24 PM EST us Gualberto Ruiz MD LAB BLOOD ORDERABLES Final Resul t Performing Organization Address [facility] Co de Phone Number [facility] [address] [place] [address] * AST (08/09/2024 3:00 AM EST) Only the most recent of3 resultswithin the time period is included. AST (SGOT) 11 <34 U/L [facility] 08/09/2024 3:00 AM EST 08/10/2024 2:24 PM EST us Gualberto Ruiz MD LAB BLOOD ORDERABLES Final Resul t Performing Organization Address [facility] de Phone Number [facility] [address] [place] [address] * Protein, total (08/09/2024 3:00 AM EST) Only the most recent of3 resultswithin the time period is included. Total Protein 7.3 6.4 - 8.9 g/dL [facility] 08/09/2024 3:00 AM EST 08/10/2024 2:24 PM EST us Gualberto Ruiz MD LAB BLOOD ORDERABLES Final Resul t Performing Organization Address [facility] de Phone Number [facility] [address] [place] [address] * Alkaline phosphatase (08/09/2024 3:00 AM EST) Only the most recent of3 resultswithin the time period is included. Alkaline Phosphatase 101 46 - 116 U/L [facility] 08/09/2024 3:00 AM EST 08/10/2024 2:24 PM EST us Gualberto Ruiz MD LAB BLOOD ORDERABLES Final Resul t Performing Organization Address [facility] Co de Phone Number [facility] [address] [place] [address] * PTH, Intact (08/09/2024 3:00 AM EST) Only the most recent of3 resultswithin the time period is included. PTH, Intact 304 160 - 721 pg/mL [facility] Comment: Suggested (KDIGO) ESRD maintenance range is two to nine times the upper normal limit (80.1 pg/mL) for the laboratory. 08/09/2024 3:00 AM EST 08/10/2024 2:24 PM EST us Gualberto Ruiz MD LAB BLOOD ORDERABLES Final Resul t Performing Organization Address [facility] Co de Phone Number [facility] [address] [place] [address] * (ABNORMAL) Magnesium (08/09/2024 3:00 AM EST) Only the most recent of3 resultswithin the time period is included. Magnesium 1.5(L) 1.9 - 2.7 mg/dL [facility] 08/09/2024 3:00 AM EST 08/10/2024 2:24 PM EST us Gualberto Ruiz MD LAB BLOOD ORDERABLES Final Resul t Performing Organization Address [facility] de Phone Number [facility] [address] [place] [address] * Lactate dehydrogenase (08/09/2024 3:00 AM EST) Only the most recent of3 resultswithin the time period is included. LDH 175 120 - 246 U/L [facility] 08/09/2024 3:00 AM EST 08/10/2024 2:24 PM EST us Gualberto Ruiz MD LAB BLOOD ORDERABLES Final Resul t Performing Organization Address [facility] Co de Phone Number [facility] [address] [place] [address] * (ABNORMAL) Glucose, random (08/09/2024 3:00 AM EST) Only the most recent of3 resultswithin the time period is included. Glucose 206(H) 74 - 109 mg/dL [facility] 08/09/2024 3:00 AM EST 08/10/2024 2:24 PM EST us Gualberto Ruiz MD LAB BLOOD ORDERABLES Final Resul t Performing Organization Address [facility] Co de Phone Number [facility] [address] [place] [address] * (ABNORMAL) Ferritin (08/09/2024 3:00 AM EST) Only the most recent of3 resultswithin the time period is included. Ferritin 1,121(H) 22 - 322 ng/mL [facility] 08/09/2024 3:00 AM EST 08/10/2024 2:24 PM EST us Gualberto Ruiz MD LAB BLOOD ORDERABLES Final Resul t Performing Organization Address [facility] de Phone Number [facility] [address] [place] [address] * (ABNORMAL) Creatinine, serum (08/09/2024 3:00 AM EST) Only the most recent of2 resultswithin the time period is included. Creatinine 4.66(H) 0.70 - 1.30 mg/dL [facility] 08/09/2024 3:00 AM EST 08/10/2024 2:24 PM EST us Gualberto Ruiz MD LAB BLOOD ORDERABLES Final Resul t Performing Organization Address [facility] de Phone Number [facility] [address] [place] [address] * (ABNORMAL) Bilirubin, total (08/09/2024 3:00 AM EST) Only the most recent of3 resultswithin the time period is included. Total Bilirubin 0.2(L) 0.3 - 1.2 mg/dL [facility] 08/09/2024 3:00 AM EST 08/10/2024 2:24 PM EST Gualberto Ruiz MD LAB BLOOD ORDERABLES Final Resul t Performing Organization Address [facility] Co de Phone Number [facility] [address] [place] [address] * (ABNORMAL) Electrolyte panel (08/09/2024 3:00 AM EST) Only the most recent of3 resultswithin the time period is included. Sodium 134(L) 136 - 145 mEq/L [facility] Potassium 4.2 3.4 - 5.0 mEq/L [facility] Chloride 103 98 - 107 mEq/L [facility] Bicarbonate (CO2) 23 21 - 31 mEq/L [facility] Anion Gap 8 3 - 14 mEq/L [facility] 08/09/2024 3:00 AM EST 08/10/2024 2:24 PM EST Gualberto Ruiz MD LAB BLOOD ORDERABLES Final Resul t Performing Organization Address [facility] de Phone Number [facility] [address] [place] [address] * (ABNORMAL) PD Adequecy Bundled (07/06/2024 3:00 AM EST) Urine Volume 600 mL [facility] Collection Interval, Ur 1,440 min [facility] Total Drain Volume 24 Hr 14,966 mL [facility] Patient Height (FT) 173.0 cm [facility] Dry Weight 106.5 kg [facility] Creat, 24 HR Dial 2.66 mg/dL [facility] [place]o Creat, 24 Hr Dial 2.54 mg/dL [facility] Urea Nitrogen, 24HR Dial 19 mg/dL [facility] Creatinine, Urine 88 mg/dL [facility] Comment:See 24 Hour Urine Cr eatinine for Reference Range in mg/24hr Urea Nitrogen, Ur 278.8 mg/dL [facility] Comment:See 24 Hour Urine Ur ea Nitrogen for Reference Range in g/24hr Creatinine 4.72(H) 0.70 - 1.30 mg/dL [facility] BUN 35(H) 7 - 25 mg/dL [facility] Body Surface Area 2.19 m2 [facility] Comment:Body surface area es timated from Charo and Charo formula Total Body Water 51.3 L [facility] Comment:Volume of distributi on estimated from Bonilla and Weyers formula Creatinine renal clearance 6.1(L) 85.0 - 125.0 mL/min/1. 73m2 [facility] Kt/V, Residual 0.65 [facility] Dial KT/V 1.11 [facility] Kt/V, Total 1.76 [facility] Comment: The K/DOQI 2006 recommendations for delivered peritoneal dialysis are: For patients with significant RKF (urine volume >100 mL/day), recommended minimal delivered weekly dose of total (peritoneal and kidney) Kt/V(urea) is greater than or equal to 1.7. For patients without significant RKF (urine volume < or = 100 mL/day), recommended minimal delivered weekly dose of peritoneal Kt/V(urea) is greater than or equal to 1.7. Weekly Residual CrCl 61.9 L/wk/1.73 m2 [facility] Weekly Dialysate CrCl 44.5 L/wk/1.73 m2 [facility] Weekly Residual GFR 44.2 L/wk/1.73 m2 [facility] Comment: Calculated by the arithmetic mean of urea and creatinine clearance(Guideline 6 of KDOQI Adequacy 2000) Weekly Total CRCL 88.7 L/wk/1.73 m2 [facility] Comment:Calculated by adding the GFR and Weekly Dialysate CrCl PNA 49.3 g/day [facility] NPNA (PD) 0.6 g/kg/day [facility] Comment: Providers should strive to achieve an nPNA of greater than or equal to 0.9 g/kg/day. nPNA valid only if protein loss <15 g/day. 07/06/2024 3:00 AM EST 07/09/2024 1:22 PM EST us Gualberto Ruiz MD LAB BLOOD ORDERABLES Edited Resu lt - Final [facility] [address] [place] [address] * Confirmation Test HCV (07/06/2024 3:00 AM EST) Only the most recent of2 resultswithin the time period is included. Hep C Ab Confirmation Not needed [facility] 07/06/2024 3:00 AM EST 07/09/2024 1:27 PM EST us Gualberto Ruiz MD LAB BLOOD ORDERABLES Final Resul t Performing Organization Address [facility] de Phone Number [facility] [address] [place] [address] * Collection Date (07/06/2024 3:00 AM EST) Collection Date See Comment [facility] Comment: Patient sample received may exceed specimen stability, based on the collection date electronically provided. ??When reviewing patient results, verify collection information and consider specimen stability before acting on any critical or panic results. 07/06/2024 3:00 AM EST us Gualberto Ruiz MD LAB [id number] ICITED RESULTS Final Result Performing Organization Address [facility] Phone Number [facility] [address] [place] [address] * HEPATITIS C ABS W/REFLEX RNA DETECTR (07/06/2024 3:00 AM EST) Only the most recent of2 resultswithin the time period is included. Hep C Virus Ab Non-Reacti ve Non-Reacti ve [facility] 07/06/2024 3:00 AM EST 07/09/2024 2:07 PM EST us Gualberto Ruiz MD LAB [id number] ICITED RESULTS Final Result Performing Organization Address [facility] de Phone Number [facility] [address] [place] [address] * Aluminum level (07/06/2024 3:00 AM EST) Aluminum 6 1 - 20 ug/L [facility] 07/06/2024 3:00 AM EST 07/09/2024 1:41 PM EST us Gualberto Ruiz MD LAB BLOOD ORDERABLES Final Resul t [facility] [address] [place] [address] * Glucose, urine, 24 hour (07/06/2024 3:00 AM EST) Glucose 24 HR Dial 1,114 mg/dL [facility] 07/06/2024 3:00 AM EST 07/09/2024 1:22 PM EST Gualberto Ruiz MD LAB URINE ORDERABLES Final Resul t Performing Organization Address [facility] Co de Phone Number [facility] [address] [place] [address] * (ABNORMAL) CBC (07/06/2024 3:00 AM EST) White Blood Cells 10.0(H) 4.2 - 9.1 K/uL [facility] RBC 3.61(L) 4.63 - 6.08 M/uL [facility] Hgb 10.2(L) 13.7 - 17.5 g/dL [facility] Hematocrit 33.7(L) 40.1 - 51.0 % [facility] MCV 93.4(H) 79.0 - 92.2 fL [facility] MCH 28.3 25.7 - 32.2 pg [facility] MCHC 30.3(L) 32.3 - 36.5 g/dL [facility] Platelets 246 163 - 337 K/uL [facility] RDW 15.0(H) 11.6 - 14.4 % [facility] Hemoglobin x 3 30.6(L) 41.1 - 52.5 g/dL [facility] 07/06/2024 3:00 AM EST 07/09/2024 1:27 PM EST us Gualberto Ruiz MD LAB BLOOD ORDERABLES Final Resul t Performing Organization Address [facility] Co de Phone Number [facility] [address] [place] [address] * Uric Acid (07/06/2024 3:00 AM EST) Only the most recent of2 resultswithin the time period is included. Uric Acid 6.6 4.4 - 7.6 mg/dL [facility] 07/06/2024 3:00 AM EST 07/09/2024 2:07 PM EST Gualberto Ruiz MD LAB BLOOD ORDERABLES Final Resul t Performing Organization Address [facility] de Phone Number [facility] [address] [place] [address] * (ABNORMAL) Hemoglobin A1c (07/06/2024 3:00 AM EST) Only the most recent of2 resultswithin the time period is included. Hemoglobin A1C 7.4(H) <5.7 % [facility] Comment: Methodology: Enzymatic HbA1c (NGSP %) ?Suggested Diagnosis >6.4% ? Diabetic 5.7-6.4% ?Pre-Diabetic <5.7% ? Non-Diabetic Diabetic Glucose Control Evaluation: Therapeutic action suggested at >8.0% ADA recommends a glycemic goal of <7.0% 07/06/2024 3:00 AM EST 07/09/2024 1:27 PM EST us Gualberto Ruiz MD LAB BLOOD ORDERABLES Final Resul t Performing Organization Address [facility] de Phone Number [facility] [address] [place] [address] * (ABNORMAL) Lipid panel (07/06/2024 3:00 AM EST) Only the most recent of2 resultswithin the time period is included. Cholesterol 135 <200 mg/dL [facility] Comment: Optimal: ?<200 Borderline: ? 200-239 Higher Risk: ?>239 Triglycerides 61 <150 mg/dL [facility] Comment: Optimal: ?<150 Borderline High: ??150-199 High: ? 200-499 Very High: ?>499 HDL 41(A) >59 mg/dL [facility] Comment: Desirable: ?>59 Higher Risk: ?<40 LDL-Calc 82 <100 mg/dL [facility] Comment: Optimal: ?<100 Above Optimal: ?100-129 Borderline High: ??130-159 High: ? 160-189 Very High: ?>189 VLDL Cholesterol Sukh 12 <30 mg/dL [facility] Comment: Optimal: ?<30 Borderline High: ??30-39 High: ? 40-99 Very High: ?>99 Chol/HDL Ratio 3.3(A) <3.3 [facility] Comment: Optimal: ?<3.3 Higher Risk: ?>6.2 07/06/2024 3:00 AM EST 07/09/2024 2:07 PM EST Gualberto Ruiz MD LAB BLOOD ORDERABLES Final Resul t Performing Organization Address [facility] de Phone Number [facility] [address] [place] [address] * Hepatitis B Core Antibody, Total (06/14/2024 3:00 AM EST) HBc Total Ab, S Negative Negative [facility] 06/14/2024 3:00 AM EST 06/15/2024 1:23 PM EST Gualberto Ruiz MD LAB BLOOD ORDERABLES Final Resul t Performing Organization Address [facility] de Phone Number [address] [address] * Vitamin D 25 Hydroxy (06/14/2024 3:00 AM EST) Vitamin D, 25-Hydroxy 45 30 - 100 ng/mL [facility] Comment: Status ? Adult ?? Pediatric Deficient: ? <20 ? <15 Insufficient: ??20-29 ?? 15-19 Sufficient: ?30-100 ??20-100 06/14/2024 3:00 AM EST 06/15/2024 1:23 PM EST Gualberto Ruiz MD LAB BLOOD ORDERABLES Final Resul t Performing Organization Address [facility] de Phone Number [facility] [address] [place] [address] * Reticulocytes (06/14/2024 3:00 AM EST) Reticulocyte 1.7 0.5 - 1.8 % [facility] Retic Ct Pct 28.5 28.2 - 35.7 pg [facility] 06/14/2024 3:00 AM EST 06/15/2024 1:24 PM EST Gualberto Ruiz MD LAB BLOOD ORDERABLES Final Resul t Performing Organization Address [facility] de Phone Number [facility] [address] [place] [address] from Last 3 Months Insurance [facility] ([id number]) ([id number]) [place] [id number] Care Teams Pointer Helper Relationship Specialty Start Date End Date Malou Cortes MD [facility] [place] [address] PCP - General 07/07/20
--- OUTSIDE RECORDS SUMMARY | 2024-09-05 08:08 | XMS_ITS | Continuity of Care Document ---
Author Organization [facility] Address [address] [place] [address] ve [address] [place] [address]- Care Team Providers Care Kelp Or Seagrass Gatherer Name Role Phone Sebastian CASTRO, Shereen Banerjee Primary Care Physician Encounter [facility] Date(s): 08/01/24 - 08/31/[address] [place], [place] [address] Encounter Type: Triage Allergies, Adverse Reactions, Alerts [...] influenza virus vaccine, inactivated 03/26/16 Jeremiah rded [id number] 12y+ bivalent booster vax 06/14/22 Recorded zoster vaccine, inactivated 10/13/21 Recorded SARS-CoV-2 mRNA ([id number]-[id number]-rdani) vax 10/13/21 Recorded SARS-CoV-2 (COVID-19) mRNA BNT-162b2 [...] Quantity: 30.0 Unit: tablet Repeat number: 1 amLODIPine 10 mg oral tablet 1 Unknown, 0 Refill(s), Refills 0, 08/31/24 10:37:00 AM EST, Partial fill upon patient request if theprescription is for a schedule II opioid drug. Start Date: 08/31/24 Status: Ordered Repeat number: 1 aspirin 81 mg oral delayed release tablet 81 mg, By Mouth, Daily, # 30 tablet, Refills 0, Tot. Refills 0, Maintenance, 07/02/24 1:56:00 PM EST,Route to Pharmacy Electronically, [facility], Partial fill upon patient request [...] Refills, Maintenance, 07/02/24 1:56:00 PM EST, Capsule, [facility], Partial fill upon patient request [...] 12:19:00 PM EDT, Route to Pharmacy Electronically, [facility]/pharmacy #[id number], Partial fill upon patient request [...] 0 Refills, Maintenance, 07/03/24 10:20:00 AM EST,Injection, [facility], Partial fill upon patient request [...] Refills, Maintenance, 07/03/24 10:19:00 AM EST, Injection, [facility], Partial fill upon patient request [...] Quantity: 30.0 Unit: capsule Repeat number: 1 please fit and measure for right foot diabetic shoe please fit and measure for right foot diabetic shoe, See Instructions, # 1 each, Refills 0, Tot. Refills 0, Maintenance, please measure for right foot diabetic shoe Has left BKA DX diabetes, 08/22/24 7:45:00 AM EST, Supply Start Date: 08/22/24 Status: Ordered Quantity: 1.0 Unit: each Repeat number: 1 Santyl 250 u/gm ointment 1 application, Topically, Daily, # 90 Gm, 3 Refills, Maintenance, 07/17/24 10:37:00 AM EST, Ointment, [facility]/pharmacy #[id number], Partial fill upon patient request [...] Refills, Maintenance, 01/22/23 12:12:00 PM EDT, Tablet, [facility]/pharmacy #[id number], Partial fill upon patient request [...] 8:45:00 AM EST, Route to Pharmacy Electronically, [facility], Partial fill upon patient request if the prescription is for a schedule II opioid drug., 177.5, cm, 08/20/22 6:57:00 EST, Height, 133.6, kg, 08/13/22 0:23:00 EST, Dry Weight Start Date: 08/20/22 Stop Date: 09/19/22 Status: Ordered Quantity: 30.0 Unit: capsule Repeat number: 1 toe filler s/p right transmetatarsal amputation toe filler s/p right transmetatarsal amputation, See Instructions, # 1 capsule, Refills 0, Tot. Refills 0, Maintenance, right tma toe filler please fit patient, 08/22/24 7:44:00 AM EST, Supply Start Date: 08/22/24 Status: Ordered Quantity: 1.0 Unit: capsule Repeat number: 1 XL Brava Barrier Strips 91674 XL Brava Barrier Strips 85023, See Instructions, # 40 each, Refills 11, [...] Care Nurse Name: Tiffanie Cantu RN Position: [facility] RN Member Role: Primary Care Nurse Name: Ponce Wilkes RN Position: [facility] RN Member Role: Primary Care Nurse Name: Lanette Yeh RN Position: [facility] RN Member Role: Primary Care Nurse Name: Nadja Helms Position: [facility] Outreach Member Role: Lifetime Consulting Physician Name: Veronica Garibay Position: [facility] Associate Professional Member Role: Lifetime Consulting Provider Address: [address] [facility] [address] [facility] Telecom: Name: Elizabeth Garcia RN Position: [facility] RN Member Role: Primary Care Nurse Name: Judson Alarcon RN Position: [facility] RN Member Role: Primary Care Nurse Name: Ira Harris RN Position: [facility] RN Member Role: Primary Care Nurse Name: Sebastian CASTRO , Shereen Banerjee Position: Reference Physician Member Role: PCP Address: [address] [place], [place] [address] Telecom: Name: Willa Ruiz MD Position: [facility] Renal MD Member Role: Lifetime Consulting Physician Address: [address] [facility] [address] [facility] [place] [address]- Telecom: Name: Lily Hooper RN Position: [facility] RN Member Role: Lifetime Consulting Physician Name: Dwayne Rollins MD Position: [facility] Renal MD Member Role: Lifetime Consulting Physician Address: [address] [facility] [address] [facility] [place], [place] [address] Telecom: Name: Kylie Rivera RN Position: [facility] RN Member Role: Primary Care Nurse Name: Tiara Coleman Position: [facility] AMB Nurse Member Role: Lifetime Consulting Physician Name: Donte Clark III, RN Position: [facility] RN Member Role: Primary Care Nurse Name: Meg Willis RN Position: [facility] RN Member Role: Primary Care Nurse Name: Tova Vidales RN Position: [facility] RN Member Role: Primary Care Nurse Name: Nathan Dumont RN Position: [facility] RN Member Role: Primary Care Nurse Name: Chelo Marie RN Position: [facility] RN Member Role: Primary Care Nurse Name: Soto Amador RN Position: S RN Member Role: Primary Care Nurse Name: Blanche Garcia RN Position: S RN Member Role: Primary Care Nurse Name: Mary Conti RN Position: S Outreach Member Role: Lifetime Consulting Physician Name: Rafael Shah MD Position: [facility] Outreach Member Role: Lifetime Consulting Physician Address: [address] [facility] [place], [address] Telecom: Name: Cherie Alcantar RN Position: [facility] RN Member Role: Primary Care Nurse Name: Billie Goddard RN Position: [facility] RN Member Role: Primary Care Nurse Name: Flower Gustafson RN Position: [facility] RN Member Role: Primary Care Nurse Name: Cathi Mancini Position: [facility] RN Member Role: Primary Care Nurse Name: Pietro Miranda MD Position: [facility] Renal MD Member Role: Lifetime Consulting Physician Address: [address] [facility] [address] Telecom: Name: Jessi Armenta RN Position: S RN Member Role: Primary Care Nurse Name: Tori Gould RN Position: [facility] RN Member Role: Primary Care Nurse Name: Charley Cooper RN Position: S RN Member Role: Primary Care Nurse Name: Francis Mccann RN Position: S RN Member Role: Primary Care Nurse Care Team Related Persons Name: CAROLSHON GALDAMEZ Insurance Providers Guarantor name: [facility] Plan Information #: 1 Payer: [facility] CARE [employer]/ONE CARE Member Number: NA Policy Number: NA Group Number: NA
--- OUTSIDE RECORDS SUMMARY | 2024-09-05 08:08 | XMS_ITS | Continuity of Care Document ---
Author Organization [facility] Address [address] [place] [address]- Care Team Providers Care White Metal Caster Name Role Phone Sebastian CASTRO, Shereen Banerjee Primary Care Physician Encounter [facility] Date(s): 08/22/24 - 08/29/24 [facility] [address] [place] [id number] Attending Physician: Alyse Vaca NP Admitting Physician: Alyse Vaca NP Referring Physician: Cole Chairez MD Encounter Type: Office Visit Allergies, Adverse Reactions, [...] influenza virus vaccine, inactivated 03/26/16 Jeremiah rded [id number] 12y+ bivalent booster vax 06/14/22 Recorded zoster vaccine, inactivated 10/13/21 Recorded SARS-CoV-2 mRNA (nnetvxq-ptaz-ttflc) vax 10/13/21 Recorded SARS-CoV-2 (COVID-19) mRNA BNT-162b2 [...] 07/02/24 1:56:00 PM EST,Route to Pharmacy Electronically, [facility], Partial fill upon patient [...] Refills, Maintenance, 07/02/24 1:56:00 PM EST, Capsule, [facility], Partial fill upon patient [...] 12:19:00 PM EDT, Route to Pharmacy Electronically, [facility]/pharmacy #[id number], Partial fill upon patient request if the [...] 0 Refills, Maintenance, 07/03/24 10:20:00 AM EST,Injection, [facility], Partial fill upon patient [...] Refills, Maintenance, 07/03/24 10:19:00 AM EST, Injection, [facility], Partial fill upon patient [...] Refills, Maintenance, 07/17/24 10:37:00 AM EST, Ointment, [facility]/pharmacy #[id number], Partial fill upon patient request [...] Refills, Maintenance, 01/22/23 12:12:00 PM EDT, Tablet, [facility]/pharmacy #[id number], Partial fill upon patient request [...] 8:45:00 AM EST, Route to Pharmacy Electronically, [facility], Partial fill upon patient request if [...] Repeat number: 1 XL Brava Barrier Strips 73538 XL Brava Barrier Strips 55233, See Instructions, # 40 each, Refills 11, [...] oldest [Reference Range]: 1 Height 180 cm (08/22/24 7:37 AM) Weight 113.63 kg (08/22/24 7:37 AM) Oxygen Saturation [94-100 %] 98 % (08/22/24 7:37 AM) Pulse Rate [55-90 bpm] 74 bpm (08/22/24 7:37 AM) Body Mass Index [18.5-24.99 kg/m2] 35.07 kg/m2 *>HHI* (08/22/24 7:37 AM) Blood Pressure [90-138/55-84 mm Hg] 124/ 76mm Hg (08/22/24 7:37 AM) Mode of Delivery (Oxygen) Room air (08/22/24 7:37 AM) Blood pressure sites Arm, left (08/22/24 7:37 AM) Weight Obtained Via Patient/family state d (08/22/24 7:37 AM) Social History Social History Type Response Smoking Status Never (less than 100 in lifetime) entered on: 12/15/23 Sex Sex Representation Male (finding) Note * Dallas Lazcano: PERFORM Event Display: Patient Education/Instruction Authored Date: [id number] Ambulatory Adult Visit Summary [address] [address] Name: PAKO MEDINA : 1965?? Visit: 08/22/2024 07:03?? Ambulatory Visit Instructions ?? Your Care Team Primary Care Provider Sebastian CASTRO , Shereen Banerjee? This Visit Provider Alyse Vaca NP Vitals Signs Pulse Rate: 74 bpm Height: 180 cm Systolic Blood Pressure: 124 mm Hg Weight: 113.63 kg Diastolic Blood Pressure: 76 mm Hg Body Mass Index:??35.07 kg/m2??Critical Oxygen Saturation: 98 % Body surface area: 2.38 What to do next Scheduled Follow-Up Appointments Tuesday 10:40 AM EST ?? With: Homero CASTRO, Pietro Anderson Where: [facility] Plastic Surgery [address] [place] [address]- Status: Pending Tuesday 7:45 AM EDT ?? With: Alyse Vaca NP Where: [facility] [address] [address]- Status: Pending Future Orders Blood Type ABO and Rh (ABO and Rh) - Once, *Est. 07/05/23 due within 6 months, Single or Recurring Future Order?? Medications The list below reflects the information in our records and provided by you today along with any changes made during this visit. Please continue your medications until treatment is completed or stopped by your provider. If this is different from the information you have or there are other questions,please contact the prescribing provider. What How Much When Instructions New Durable Medical Equipment (please fit and measure for right foot diabetic shoe) See instructions please measure for right foot diabetic shoe Has left BKA ?? DX diabetes ?? Printed Prescription New Durable Medical Equipment (toe filler s/ p right transmetatarsal amputation) See instructions right tma toe filler please fit patient ?? Printed Prescription Unchanged Allopurinol (allopurinol 100 mg oral tablet) 1 tab(s) Oral Daily Unchanged Aspirin (aspirin 81 mg oral delayed release tablet) 81 Milligram Oral Daily Duration: 30 Days Unchanged Atorvastatin (atorvastatin 10 mg oral tablet) 1 tab(s) Oral Daily at Bedtime Unchanged Benzonatate (benzonatate 100 mg oral capsule) 1 capsule Oral 3 times a day Unchanged Calcitriol (calcitriol 0.25 mcg oral capsule) 0.5 Microgram Oral Every week Duration: 30 Days Unchanged Carvedilol (carvedilol 6.25 mg oral tablet) 1 tab(s) Oral Twice a day Duration: 30 Days Unchanged Collagenase Topical (Santyl 250 u/ gm ointment) 1 lazarus Topically Daily Unchanged Durable Medical Equipment (XL Brava Barrier Strips 24633) See instructions use as needed for ostomy maintaince. Dx colostomy Z93.3 ?? Unchanged Furosemide 80 Milligram Daily Unchanged Gabapentin (gabapentin 300 mg oral capsule) 1 capsule Oral Daily at Bedtime Unchanged Insulin Glargine (insulin glargine 100 units/ mL subcutaneous solution) 25 unit(s) Subcutaneous Injection Daily Duration: 30 Days Unchanged Insulin Lispro (insulin lispro 100 u/ ml subcutaneous injection) 9-19 units Subcutaneous Injection 3 times a day before meals << Sliding Scale Comments >> 100 - 149 ?? 9 units Call if less than 70 150 - 199 ?? 11 units 200 - 249 ?? 13 units 250 - 299 ?? 15 units 300 - 349 ?? 17 units 350 - 399 ?? 19 units Call if greater than 400 << Sliding Scale Comments >> ?? Unchanged Insulin NPH (insulin isophane human recombinant 100 u/ ml subcutaneous injection) 34 unit(s) Subcutaneous Injection Daily at Bedtime Duration: 30 Days Unchanged Midodrine (midodrine 10 mg oral tablet) 1 tab(s) Oral Every 12 hours as needed for Blood Pressure Unchanged Miscellaneous Rx (DEXCOM G7 SENSOR) USE 1 SENSOR EVERY 10 DAYS. ?? Unchanged Omeprazole (omeprazole 40 mg oral enteric coated capsule) 1 capsule Oral Daily Unchanged Oxycodone (oxyCODONE 5 mg oral tablet) 5 Milligram Oral Every 8 hours as needed for Pain , Moderate Duration: 5 Days Unchanged Sertraline (sertraline 50 mg oral tablet) 1 tab(s) Oral Daily Unchanged Sevelamer (sevelamer carbonate 800 mg oral tablet) 2 tab(s) Oral 3 times a day with meals Duration: 30 Days Unchanged Tamsulosin (tamsulosin 0.4 mg oral capsule) 1 capsule Oral Daily at Bedtime Duration: 30 Days Medications and Immunizations Administered Medications Given During Visit No medications given during this visit.?? Allergies (NKA means No Known Allergies) Keflex??(muscles locked up, could not move) metFORMIN??(Cefalexin, GI upset) Common Emergency Awareness Tips IS IT A [...] are strongly encouraged to quit. Please call [employer] [facility] at [phone] or [phone] ([phone]) or log in to [email or web address] for referrals to smoking cessation programs. ?? The National Suicide Prevention Hotline is available 17/01 if you or someone you know needs to find a reason to keep living. By calling 1-178-784-Inetec (7067) you'll be connected to a skilled, trained counselor at a crisis center in your area. [facility] Portal You can view and manage your care through the patient portal or by using a health care lazarus of your choosing. The [employer] is a website that allows you to securely view your medical information including your hospital discharge summary, office visit summaries, medications and follow-up visits. You can also request appointments, renew medications, and request access to your medical information using a health care lazarus of your choosing, or just ask a question. You can enroll at [email or web address] or register during your next office visit. [facility], in keeping with [facility] guidance, no longer requires face masks for staff, patientsor visitors in most situations. Similiar to time spent indoors at other locations, there is the chance that you were exposed to repiratory viruses during your time with us (such as flu or COVID-19). If you develop symptoms concerning for a viral respiratory infection, please seek testing (and treatment if indicated) from your medical provider or home test kit. ?? Disclaimer: The information provided is of a general nature and is intended to be used in conjunction with the recommendations and advice of your health care practitioner. Every effort has been made to ensure that the information provided is accurate and complete at the time it is provided to you however, as your needs change, or, as new information becomes available, different or additional instructions may be required. ?? If you have questions, please consult with your primary care provider or pharmacist, as appropriate. This information is not intended to serve as substitution for assessment and evaluation by a qualified health care provider. If you do not have a primary care provider, you may find a [facility] provider by calling [facility] Link at [phone]. Patient Care team information Care Team Personnel Name: Tomy Grady RN Position: [facility] RN Member Role: Primary Care Nurse Name: Pita Arriaza RN Position: [facility] RN Member Role: Primary Care Nurse Name: Tiffanie Catnu RN Position: [facility] RN Member Role: Primary Care Nurse Name: Ponce Wilkes RN Position: [facility] RN Member Role: Primary Care Nurse Name: Lanette Yeh RN Position: [facility] RN Member Role: Primary Care Nurse Name: Nadja Helms Position: S Outreach Member Role: Lifetime Consulting Physician Name: Veronica Garibay Position: [facility] Associate Professional Member Role: Lifetime Consulting Provider Address: [address] [place] [address] [address] [facility] [place], [place] [address] Telecom: Name: Elizabeth Garcia RN Position: S RN Member Role: Primary Care Nurse Name: Judson Alarcon RN Position: S RN Member Role: Primary Care Nurse Name: Ira Harris RN Position: S RN Member Role: Primary Care Nurse Name: Sebastian CASTRO , Shereen Banerjee Position: Reference Physician Member Role: PCP Address: [address] [place], [place] [address] Telecom: Name: Willa Ruiz MD Position: [facility] Renal MD Member Role: Lifetime Consulting Physician Address: [address] [facility] [address] [facility] [place], [place] [address] Telecom: Name: Lily Hooper RN Position: [facility] RN Member Role: Lifetime Consulting Physician Name: Dwayne Rollins MD Position: [facility] Renal MD Member Role: Lifetime Consulting Physician [facility] [address] [facility] [place], [place] [address] Telecom: Name: Kylie Rivera RN Position: [facility] RN Member Role: Primary Care Nurse Name: Tiara Coleman Position: [facility] AMB Nurse Member Role: Lifetime Consulting Physician Name: Donte Clark III, RN Position: [facility] RN Member Role: Primary Care Nurse Name: Meg Willis RN Position: [facility] RN Member Role: Primary Care Nurse Name: Tova Vidales RN Position: [facility] RN Member Role: Primary Care Nurse Name: Nathan Dumont RN Position: [facility] RN Member Role: Primary Care Nurse Name: Chelo Marie RN Position: [facility] RN Member Role: Primary Care Nurse Name: Soto Amador RN Position: [facility] RN Member Role: Primary Care Nurse Name: Blanche Garcia RN Position: [facility] RN Member Role: Primary Care Nurse Name: Mary Conti RN Position: S Outreach Member Role: Lifetime Consulting Physician Name: Rafael Shah MD Position: [facility] Outreach Member Role: Lifetime Consulting Physician Address: [facility] [address] [facility] [place], [address] Telecom: Name: Cherie Alcantar RN Position: S RN Member Role: Primary Care Nurse Name: Billie Goddard RN Position: S RN Member Role: Primary Care Nurse Name: Flower Gustafson RN Position: S RN Member Role: Primary Care Nurse Name: Cathi Mancini Position: S RN Member Role: Primary Care Nurse Name: Pietro Miranda MD Position: [facility] Renal MD Member Role: Lifetime Consulting Physician Address: [address] [facility] [address] [facility] [address] Telecom: Name: Jessi Armenta RN Position: [...] Payer: [employer] Member Number: [id number] Policy Number: NA Group Number: [facility] Health Plan Information #: 2 Payer: [employer] Member Number: [id number] Policy Number: NA Group Number: NA
--- OUTSIDE RECORDS SUMMARY | 2024-09-05 08:08 | XMS_ITS | Continuity of Care Document ---
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 Name Role Phone Sebastian CASTRO, Shereen Banerjee Primary Care Physician Encounter [facility] Date(s): 08/03/24 - 09/02/[address] [place], [place] [address] Encounter Type: Triage Allergies, Adverse [...] influenza virus vaccine, inactivated 03/26/16 Jeremiah rded [id number] 12y+ bivalent booster vax 06/14/22 Recorded zoster vaccine, inactivated 10/13/21 Recorded SARS-CoV-2 mRNA ([id number]-[id number]) vax 10/13/21 Recorded SARS-CoV-2 (COVID-19) mRNA BNT-162b2 [...] 07/02/24 1:56:00 PM EST,Route to Pharmacy Electronically, [facility], Partial fill upon patient request [...] Refills, Maintenance, 07/02/24 1:56:00 PM EST, Capsule, [facility], Partial fill upon patient request [...] 12:19:00 PM EDT, Route to Pharmacy Electronically, [facility]/pharmacy #[id number], Partial fill upon patient request if [...] 0 Refills, Maintenance, 07/03/24 10:20:00 AM EST,Injection, [facility], Partial fill upon [...] Refills, Maintenance, 07/03/24 10:19:00 AM EST, Injection, [facility], Partial fill upon [...] Refills, Maintenance, 07/17/24 10:37:00 AM EST, Ointment, [facility]/pharmacy #[id number], Partial fill upon patient request if [...] Refills, Maintenance, 01/22/23 12:12:00 PM EDT, Tablet, [facility]/pharmacy #[id number], Partial fill upon patient request if [...] 8:45:00 AM EST, Route to Pharmacy Electronically, [facility], Partial fill upon patient request [...] Repeat number: 1 XL Brava Barrier Strips 05116 XL Brava Barrier Strips 00486, See Instructions, # 40 each, Refills 11, [...] Care Nurse Name: Ponce Wilkes RN Position: [facility] RN Member Role: Primary Care Nurse Name: Lanette Yeh RN Position: [facility] RN Member Role: Primary Care Nurse Name: Nadja Helms Position: [facility] Outreach Member Role: Lifetime Consulting Physician Name: Veronica Garibay Position: [facility] Associate Professional Member Role: Lifetime Consulting Provider Address: [address] [facility] [address] [facility] Telecom: Name: Elizabeth Garcia RN Position: [facility] RN Member Role: Primary Care Nurse Name: Judson Alarcon RN Position: [facility] RN Member Role: Primary Care Nurse Name: Ira Harris RN Position: [facility] RN Member Role: Primary Care Nurse Name: Sebastian CASTRO , Shereen Banerjee Position: Reference Physician Member Role: PCP Address: [address] [place], [place] [address] Telecom: Name: Willa Ruiz MD Position: [facility] Renal MD Member Role: Lifetime Consulting Physician Address: [address] [facility] [address] [facility] [place] [address]- Telecom: Name: Lily Hooper RN Position: [facility] RN Member Role: Lifetime Consulting Physician Name: Dwayne Rollins MD Position: [facility] Renal MD Member Role: Lifetime Consulting Physician Address: [address] [facility] [address] [facility] [place], [place] [address] Telecom: Name: Kylie Rivera RN Position: [facility] RN Member Role: Primary Care Nurse Name: Tiara Coleman Position: [facility] AMB Nurse Member Role: Lifetime Consulting Physician Name: Donte Clark III, RN Position: [facility] RN Member Role: Primary Care Nurse Name: Meg Willis RN Position: [facility] RN Member Role: Primary Care Nurse Name: Tova Vidales RN Position: [facility] RN Member Role: Primary Care Nurse Name: Nathan Dumont RN Position: [facility] RN Member Role: Primary Care Nurse Name: Chelo Marie RN Position: [facility] RN Member Role: Primary Care Nurse Name: Soto Amador RN Position: S RN Member Role: Primary Care Nurse Name: Blanche Garcia RN Position: S RN Member Role: Primary Care Nurse Name: Mary Conti RN Position: S Outreach Member Role: Lifetime Consulting Physician Name: Rafael Shah MD Position: [facility] Outreach Member Role: Lifetime Consulting Physician Address: [address] [facility] [place], [address] Telecom: Name: Cherie Alcantar RN Position: [facility] RN Member Role: Primary Care Nurse Name: Billie Goddard RN Position: [facility] RN Member Role: Primary Care Nurse Name: Flower Gustafson RN Position: [facility] RN Member Role: Primary Care Nurse Name: Cathi Mancini Position: [facility] RN Member Role: Primary Care Nurse Name: Pietro Miranda MD Position: [facility] Renal MD Member Role: Lifetime Consulting Physician Address: [address] [facility] [address] Tele[address]: Name: Jessi Armenta RN Position: S RN Member Role: Primary Care Nurse Name: Tori Gould RN Position: [facility] RN Member Role: Primary Care Nurse Name: Charley Cooper RN Position: S RN Member Role: Primary Care Nurse Name: Francis Mccann RN Position: S RN Member Role: Primary Care Nurse Care Team Related Persons Name: CAROLSHON GALDAMEZ Insurance Providers Guarantor name: [facility] Plan Information #: 1 Payer: [facility] C[employer]/ONE CARE Member Number: NA Policy Number: NA Group Number: NA
--- OUTSIDE RECORDS SUMMARY | 2024-09-05 08:08 | XMS_ITS | Continuity of Care Document ---
Author Organization [facility] ter Address [address] [place] [id number] Care Team Providers Care Nursing Assistants Teacher Name Role Phone Sebastian CASTRO, Shereen Banerjee Primary Care Physician Encounter [facility] R [id number] Date(s): 08/11/24 - 08/17/[address] [id number] Discharge Disposition: A-D/C Home Attending Physician: Victor M CASTRO, Wily Admitting Physician: Umesh Nelson MD Referring Physician: Not on Staff, Referring MD Encounter Type: Disch IP Allergies, Adverse Reactions, Alerts Substance Criticality Severity [...] influenza virus vaccine, inactivated 03/26/16 Jeremiah rded [id number] 12y+ bivalent booster vax 06/14/22 Recorded zoster vaccine, inactivated 10/13/21 Recorded SARS-CoV-2 mRNA ([id number]) vax 10/13/21 Recorded SARS-CoV-2 (COVID-19) mRNA BNT-162b2 [...] 07/02/24 1:56:00 PM EST,Route to Pharmacy Electronically, [facility], Partial fill upon patient request if [...] Refills, Maintenance, 07/02/24 1:56:00 PM EST, Capsule, [facility], Partial fill upon patient request if the prescription is for a scheduleII opioid drug., 180, cm, 07/02/24 8:03:00 EST, Height, 106.1, kg, 06/22/24 8:30:00 EST, Dry Weight Start Date: 07/02/24 Stop Date: 08/01/24 Status: Ordered Quantity: 4.0 Unit: capsule Repeat number: 1 carvedilol 6.25 mg oral tablet 6.25 mg, Tablet, By Mouth, 08/17/24 9:00:00 AM EST Start Date: 08/17/24 Stop Date: 08/17/24 Status: Completed Repeat number: 1 carvedilol 6.25 mg oral tablet 6.25 mg, 1, tablet, By Mouth, 2 times a day, # 60 tablet, Refills 0, Tot. Refills 0, Maintenance, 01/22/23 12:19:00 PM EDT, Route to Pharmacy Electronically, [id number], Partial fill upon patient request if the [...] 0 Refills, Maintenance, 07/03/24 10:20:00 AM EST,Injection, [facility], Partial fill upon patient request if [...] Refills, Maintenance, 07/03/24 10:19:00 AM EST, Injection, [facility], Partial fill upon patient [...] 3:55:00 PM EST, Route to Pharmacy Electronically, [facility], Partial fill upon patient request if the prescription is for a schedule II opioid drug., 180, cm, 08/17/24 14:08:00 EST, Height, 113.9, kg, 08/12/24 1:29:00 EST, Dry Weight Start Date: 08/17/24 Stop Date: 08/22/24 Status: Ordered Quantity: 15.0 Unit: tablet Repeat number: 1 oxyCODONE 5 mg oral tablet 5 mg, Tablet, By Mouth, Every 6 hours, PRN for Pain , Moderate, Routine, 08/11/24 4:54:00 PM EST Start Date: 08/11/24 Stop Date: 08/18/24 Status: Discontinued Repeat number: 1 Santyl 250 u/gm ointment 1 application, Topically, Daily, # 90 Gm, 3 Refills, Maintenance, 07/17/24 10:37:00 AM EST, Ointment, [facility] #[id number], Partial fill upon patient request if [...] Refills, Maintenance, 01/22/23 12:12:00 PM EDT, Tablet, [facility][id number], Partial fill upon patient request if [...] 8:45:00 AM EST, Route to Pharmacy Electronically, [facility], Partial fill upon patient request if the prescription is for a schedule II opioid drug., 177.5, cm, 08/20/22 6:57:00 EST, Height, 133.6, kg, 08/13/22 0:23:00 EST, Dry Weight Start Date: 08/20/22 Stop Date: 09/19/22 Status: Ordered Quantity: 30.0 Unit: capsule Repeat number: 1 XL Brava Barrier Strips 05031 XL Brava Barrier Strips 35624, See Instructions, # 40 each, Refills 11, [...] Exam Date Time Procedure Performing Provider Status 08/16/24 9:42 AM US Extremity Non-Vas cular Right Limited Flower Ortiz; Thor (Verified) Notes: (US Extremity Non-Vascular Right Limited) Reason For Exam: Rule out underlying fluid collection s/pI and D of right hand by hand surgery;Erythema RESULT: US Extremity Non-Vascular Right Limited US Extremity Non-Vascular Right Limited Reason: Erythema; Rule out underlying fluid collection s p I and D of right hand by hand surgery; Clinical Question(s): Drainage COMPARISON: None. FINDINGS: High-resolution, linear array imaging of the superficial soft tissues of the right hand was performed , centered in the area of the base of the thumb and first metacarpal. Note is made that the patient is status post recent incision and drainage at this site and that there is an open wound. Sterileultrasound gel and a sterile probe cover were utilized for this examination. There is an open wound measuring approximately 0.9 cm in diameter extending approximately 0.5 cm indepth. There appears to be a thin plane of tissue the base of the wound from adjacent tendon. No mass or fluid collection is apparent. A generalized mild increase in vascularity in this reg ion is noted consistent with cellulitis. There is some surrounding soft tissue edema. IMPRESSION: Open wound at the site of clinical interest measuring approximately 0.9 cm diameter by 0.5 cm in depth, consistent with recent I and D. No residual fluid collection or mass. The wound extends close to, but does not clearly involve, an adjacent tendon. WSN: [id number] Ordering Physician: Wily Dow Dictated By: Jayme Avalos MD Dictated Date/Time: 08/16/24 10:11 a Reviewed By: Jayme Avalos MD Signed By: Jayme Avalos MD Signed Date/Time: 08/16/24 10:11 am Transcribed By: VIKASH Transcribed Date/Time: 08/16/24 10:03 am Vital Signs Most recent to oldest [Reference Range]: 1 2 3 Height 180 cm (08/17/24 2:08 PM) 180 cm (08/16/24 11:25 PM) 180 cm (08/16/24 8:08 PM) Weight 113.9 kg (08/12/24 1:29 AM) 113.9 kg (08/12/24 1:16 AM) 109 kg (08/11/24 11:16 PM) Oxygen Saturation [94-100 %] 100 % (08/17/24 2:08 PM) 95 % (08/17/24 7:00 AM) 98 % (08/16/24 11:25 PM) Pulse Rate [55-90 bpm] 77 bpm (08/17/24 2:08 PM) 83 bpm (08/17/24 8:24 AM) 83 bpm (08/17/24 7:00 AM) Body Mass Index [18.5-24.99 kg/m2] 35.15 kg/m2 *>HHI* (08/12/24 1:29 AM) 33.64 kg/m2 *>HHI* (08/11/24 11:16 PM) 33.64 kg/m2 *>HHI* (08/11/24 8:52 AM) Blood Pressure [90-138/55-84 mm Hg] 126/88mm Hg (08/17/24 2:08 PM) 169/93mm Hg *H* (08/17/24 8:24 AM) 169/93mm Hg *H* (08/17/24 7:00 AM) Respiratory Rate [16-30 br/min] 17 br/min (08/17/24 2:08 PM) 18 br/min (08/17/24 7:00 AM) 18 br/min (08/17/24 12:24 AM) Temperature [96.8-100.4 DegF] 97.5 DegF (08/17/24 2:08 PM) 97.4 DegF (08/17/24 7:00 AM) 97.7 DegF (08/16/24 11:25 PM) Liters per Minute 2 L/min (08/13/24 2:55 PM) Mode of Delivery (Oxygen) Room air (08/17/24 2:08 PM) Room air (08/17/24 7:00 AM) Room air (08/16/24 11:25 PM) Blood pressure sites Arm, right (08/17/24 2:08 PM) Arm, left (08/17/24 7:00 AM) Arm, left (08/16/24 11:25 PM) Temperature Route Oral (08/17/24 2:08 PM) Oral (08/17/24 7:00 AM) Oral (08/16/24 11:25 PM) Dry Weight 113.9 kg (08/12/24 1:29 AM) 109 kg (08/11/24 11:16 PM) 109 kg (08/11/24 8:58 AM) Weight Obtained Via Bed scale (08/12/24 1:29 AM) Patient/family stated (08/11/24 8:52 AM) Dry Weight Obtained Via Bed scale (08/12/24 1:29 AM) Patient/family stated (08/11/24 8:52 AM) Social History Social History Type Response Smoking Status Never (less than 100 in lifetime) entered on: 12/15/23 Sex Sex Representation Male (finding) Consult note * Birgit Reilly: PERFORM, MODIFY, MODIFY, MODIFY Event Display: Consultation Note Authored Date: [id number] Patient: ??MOUSTAPHA MEDINA ? Age:??59 Years?Sex:??Male?:??1965?? Subjective Infectious Diseases Attending: Dr. Werner ?? Requesting Attending/Provider: Dr. Dow ?? Reason for Consult: Hand abscess ?? Source of Information: CIS, patient ?? 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 status postdebridement 01/2024 managed with 6 weeks of vancomycin and Augmentinwith recurrence in 03/2024 requiring additional debridement and creation of a diverting colostomy with slow to heal wound, and admission 06/21???07/03/24 with GBS bacteremia, a right diabetic foot infection with R2 osteomyelitis status post R2 ray amputation 06/22/24 and then completion TMA 06/29/24 without concern for residual osteomyelitis (wound cultures from [facility] and then OR cultures with GBS, Citrobacter braakii, Pseudomonas, MRSA, Staph haemolyticus, and Ele albicans) ultimately managed with cefepime and vancomycin.?? He was seen in the vascular office after discharge felt to have a healing TMA site.? He developed concern for a right hand infection for which he was seen at urgent care and was prescribed doxycycline on 08/06. He was seen in the colorectal surgery office on 08/07 found to have improved perineal wound, though given his??right hand infection he was instructed to present to the emergency department on 08/07. ?? Upon arrival to the emergency department, the patient was found to be afebrile and hemodynamically stable. No labs were performed.?? Incision and drainage was attempted, though the purulent material was described as being hard and not able to be expressed.?? No culture was obtained.?? He was told to continue the doxycycline and was discharged home. ?? He developed worsening symptoms in his right hand and return to the emergency department on 08/11 found to be afebrile and hemodynamically stable.?? Lab work revealed a WBC count of 11.8 with 79.5% neutrophils.?? 2 sets of blood cultures were sent which have remained negative.?? He was started on IVvancomycin and was admitted to the hospital.?? Hand surgery was consulted and performed a bedside incision and drainage on 08/12 removing 5 cc of purulence and blood, and then further debrided on 08/14.?? No culture was obtained.?? An ultrasound was performed on 08/16 was without any residual fluid collection or mass.?? ID has been consulted to assist in further management. ?? Today on evaluation, the patient states that his hand feels much better??and he is hoping he can leave the hospital very soon. ??He denies any fevers or chills. ??He states that his foot??wound??and sacral wound are healing well without any concerns. ? Past Medical and Surgical History: ??? Diabetes ??? End-stage renal disease on peritoneal dialysis ??? Peripheral artery disease status post left BKA and R4 amputation ??? Hyperlipidemia ??? Retinopathy ??? Neuropathy ??? Nephrolithiasis ??? Gout ??? Obstructive sleep apnea ??? Multinodular goiter status post thyroid lobectomy 02/2015 ??? Obesity status post gastric sleeve ??? Achilles tendon rupture status post repair ??? Erectile dysfunction status post penile prosthesis ??? Perirectal horseshoe abscess status post debridement 01/30/24 with findings significant for a large NSTI, fistulous tract, coccygectomy, and seton placement with MRSA on culture s/p a prolonged 6-week course of weekly vancomycin via PD + Augmentin (completed 03/12/24) then recurrence in 03/2024 s/p additional debridement (04/10) and creation of a diverting transverse colostomy (Dr. Asencio, 04/13)with [id number]-[id number]-[id number] wound ? Recent Antimicrobials: ??? Vancomycin 1 g IV 08/11, 1 g IV 08/13 ?? Medications: Reviewed ?? Antimicrobial Allergies: Reported GI upset and muscle rigidity with cephalexin. ?? Family History: No relevant history of infectious issues in first degree relatives. ?? Social History and Infectious Diseases Exposure History: Lives with his . ?? Review of systems fully reviewed and negative aside from what is listed above in the HPI. Objective Vitals & Measurements Vital Signs?? Temperature: 97.5 DegF (08/16/24 07:19:00) Temperature Route: Oral (08/16/24 07:19:00) Pulse Rate: 73 bpm (08/16/24 08:15:00) Respiratory Rate: 16 br/min (08/16/24 07:19:00) Systolic Blood Pressure:??151 mm Hg??High (08/16/24 08:15:00) Diastolic Blood Pressure:??97 mm Hg??High (08/16/24 08:15:00) Blood pressure sites: Arm, left (08/16/24 07:19:00) Mean Arterial Pressure: 115 mm Hg (08/16/24 07:19:00) Pulse Pressure: 54 mm Hg (08/16/24 07:19:00) Oxygen Saturation: 100 % (08/16/24 07:19:00) Mode of Delivery (Oxygen): Room air (08/16/24 07:19:00) Early Warning Score: 2 (08/16/24 11:06:18) Physical Exam GENERAL: In no acute distress, sitting up on edge of bed HEENT: Anicteric, moist oral mucosa without lesions or thrush CARDIOVASCULAR: Regular rate RESPIRATORY: Lungs clear to auscultation GASTROINTESTINAL: Non-distended, normoactive bowel sounds, non-tender SKIN:?? Right hand with dorsal wound - wound base appears clean without any surrounding erythema, odor, or purulence NEUROLOGICAL/PSYCH: A&Ox3, grossly intact ? Microbiology/ID Work-up: ??? Blood cultures 08/11 x 2: Negative to date Test Name Test Result Date/Time WBC 8.7 k/mm3 08/16/2024 06:33 EST RBC 3.70 m/mm3 08/16/2024 06:33 EST Hgb 10.7 Gm/dL 08/16/2024 06:33 EST Hct 33.7 % 08/16/2024 06:33 EST MCV 91.1 femtoliters 08/16/2024 06:33 EST MCH 28.9 pg 08/16/2024 06:33 EST MCHC 31.8 Gm/dL 08/16/2024 06:33 EST Platelet Count 251 k/mm3 08/16/2024 06:33 EST RDW-SD 52.6 femtoliters 08/16/2024 06:33 EST MPV 9.6 femtoliters 08/16/2024 06:33 EST Nucleated RBC (Automated) 0.0 #/100 WBC'S 08/16/2024 06:33 EST Abs. NRBC 0.0 k/mm3 08/16/2024 06:33 EST Abs. Neut 5.9 k/mm3 08/16/2024 06:33 EST Abs. Lymph 1.9 k/mm3 08/16/2024 06:33 EST Abs. Billings 0.6 k/mm3 08/16/2024 06:33 EST Abs. Eo 0.2 k/mm3 08/16/2024 06:33 EST Abs. Baso 0.0 k/mm3 08/16/2024 06:33 EST Neut % 67.4 % 08/16/2024 06:33 EST Lymph % 22.0 % 08/16/2024 06:33 EST Billings % 7.1 % 08/16/2024 06:33 EST Eos % 2.0 % 08/16/2024 06:33 EST Baso % 0.5 % 08/16/2024 06:33 EST Imm Gran 1.0 % 08/16/2024 06:33 EST Abs. Imm Gran 0.1 k/mm3 08/16/2024 06:33 EST Sodium 137 mmol/L 08/16/2024 06:33 EST Potassium 4.3 mmol/L 08/16/2024 06:33 EST Chloride 101 mmol/L 08/16/2024 06:33 EST Bicarbonate Level 23 mmol/L 08/16/2024 06:33 EST Anion Gap 13 mmol/L 08/16/2024 06:33 EST Glucose Level 58 mg/dL 08/16/2024 06:33 EST BUN 49 mg/dL 08/16/2024 06:33 EST Creatinine-Blood 5.62 mg/dL 08/16/2024 06:33 EST Estimated GFR Creatinine 11 ML/MIN/1.73 M2 08/16/2024 06:33 EST Calcium 9.6 mg/dL 08/16/2024 06:33 EST Magnesium 1.8 mg/dL 08/16/2024 06:33 EST Assessment/Plan Assessment:??This is a very complicated 59-year-old man with diabetes, end-stage renal disease on peritoneal dialysis, peripheral artery disease status post left BKA and R4 amputation, gout, erectiledysfunction with a penile prosthesis, 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 status postdebridement 01/2024 managed with 6 weeks of vancomycin and Augmentin with recurrence in 03/2024 requiring additional debridement and creation of a diverting colostomy withslow to heal wound, and admission 06/21???07/03/24 with GBS bacteremia, a right diabetic foot infection with R2 osteomyelitis status post R2 ray amputation 06/22/24 and then completion TMA 06/29/24, and more recent concern for a right hand infection status post attempt at I&D in the ED on 08/06 (no cultures) managed with doxycycline with progression ultimately resulting in this current admission.??He has been afebrile with negative blood cultures.??Hand surgery performed a bedside incision and drainage on 08/12 removing 5 cc of purulence and blood and then further bedside debridement (no cultures).??An ultrasound this morning was without any residual fluid collection.??ID has been consulted to assist in management.??On 08/14 ?? Treating for a right hand infection with abscess in this very complicated diabetic patient. Infection is mostly likely due to a gram positive organism (and he seems to be improving with??only gram positive coverage), though there is no culture data to guide antibiotic therapy and??he has very complicated prior microbiology.??It's reassuring that his hand looks??much improved, he feels much improved, and ultrasound is without any evidence of abscess. ? Recommendations: ??-Per discussion with ID pharmacy, he should be therapeutic with vancomycin for about 5 more days without any additional doses. As infection seems??to be nearly-resolved as of today, we do not feel he needs any??additional doses at this time. ? Thank you for the consultation, ID will sign-off at this time, please call if any questions arise. ?? TC sent to covering provider regarding recommendations. ?? Birgit Messina PA-C Infectious Diseases ?? Discussed with Dr. Werner ?? Time-based billing: I spent a total of 60??minutes today reviewing the chart/medical records, evaluating the patient, formulating and discussing the treatment plan, and documenting the findings and encounter. ?? * Stephania Werner MD: PERFORM Event Display: Consultation Note Authored Date: [id number] I agree with the HPI, physical exam findings, impression and recommendations as outlined in the fellow's/resident's/PA/HAND TUBE BENDER note as they reflect my direct input. Please page the author of the note for any clarifications. * Kashif Goodwin RN: VERIFY, PERFORM, MODIFY, SIGN, SIGN Event Display: Consultation Note Authored Date: [id number] Patient: MOUSTAPHA MEDINA Age: 59 years Sex: Male : 1965 Associated Diagnoses: None Author: Kashif Goodwin RN stoma Stoma with abdominal bulge History of Presenting Problem Date of Service 08/14/2024 intern consulted for pouching recommendations d/t firm stool and leaking pouching system. Prior to entering the room, direct care RN states the patient's abdomen is firm to touch with stool pushing against the pouching. I was already in the room d/t wound care consult, please see my wound RN note for more details. His states she has been changing the pouch herself while Moustapha empties thepouch. His states, the pouch was last changed last Tuesday and she has been changing it once or twice a week. Moustapha states his stools has been very firm/hard and direct care RN states, bowel medications were already given this morning. I explained fur cutter role and plan for today and Moustapha was agreeable to consultation and photodocumentation. Moustapha lifted his hospital gown and pouch noted to be pushing off the abdomen with stool underneath the barrier. Moustapha states, I was about to place another piece of tape, because it islifting at the top . I advise to change the pouch if leaking was noted to prevent peristoma moisture irritation. I removed the ostomy pouch, which revealed stoma even with the skin with os located at9 o'clock. Stoma is red/moist/ warm with MCJ intact with peristoma skin irritation from 4-6 o'clock. Moustapha states he has a bulge and when he crunched his abdomen, I noted the abdominal bulge. I shaved the peristoma skin with Stomahesive powder and safety razer. I then applied Stomahesive powder and no-sting skin prep spray to the peristoma area. Stoma was measured to 40mm x 65mm and cut to fit onto the Coloplast ostomy pouch 2 piece package #[id number]. Template of the shape/size of stoma left at the bedside. Coloplast Brava Protective seal snuggly wrapped around the stoma and ostomy pouch applied over the stoma. Coloplast Brava Strips applied to the bilateral sides of the wafer barrier. D/t size of the stoma, I was unable to place the patient in a Convex pouch but d/t soft abdomen, abdominalbulge and flat stoma, I would recommend Conex pouch. I explained Coloplast care and Moustapha was agreeable for me to enroll him into the program. Please see below for ostomy pouching recommendations. Please see below for step by step instructions of changing the ostomy pouch. intern signing off,please reconsult for any ostomy pouch related issues or questions. Inpatient Ostomy Supply Recommendations: -Coloplast 2 piece pouch #[id number] -Coloplast Brava Protective seal #[id number] -2 Coloplast Elastic barrier strips #565687 Step by Step Instructions for Ostomy Pouch Change: 1.) Remove ostomy pouch gently. Cleanse the peristoma area with WATER only (no soaps or wipes). Dryskin or allow to dry. 2.) Trace Template onto the pouch barrier and cut to fit the measurements. 3.) Snuggly wrap the Coloplast barrier ring snuggly around the stoma. 4.) Stick the pouch wafer pouch together 5.) Apply ostomy pouch over the stoma. Ensure good seal. 6.) Apply Coloplast Elastic barrier strips to both sides of the barrier edges. Tips to remember -Empty the pouch when its 1/3 to 1/2 full. -Change the pouch every 1-7 days unless it is leaking. (signs of silent leaking: itching behind thepouch or smelling stool) -Do not reinforce if leaking is noted. Change the pouch if leaking occurs. -Do not use soap, baby wipes, or lotions around the peristoma. -Do not put water into the pouch when emptying the because it can cause leaking or break the seal of adhesive of the pouch. Plan Time spent > 60 minutes * Kashif Goodwin RN: PERFORM, SIGN, VERIFY Event Display: Consultation Note Authored Date: [id number] Patient: MOUSTAPHA MEDINA Age: 59 years Sex: Male : 1965 Associated Diagnoses: None Author: Kashif Goodwin RN Perianal and L buttock 06/25/24 Coccyx 08/14/24 Coccyx and R buttock 08/14/24 Drainage 08/14/24 History of Presenting Problem Date of Service 08/14/2024 Reason for referral Wound: Description Location- Coccyx and R buttock Etiology- Perviously documented necrotizing soft tissue infection d/t Perianal abscess s/p Surgicaldebridement Measurements- -Coccyx: 3.0cm x 1.2cm x 2.0cm with undermining at 12 o'clock of 1.0cm -R buttock: 2.5cm x 1.5cm x 1.0cm Wound Bed- two areas of full thickness skin loss with yellow moist wound and red viable tissue Edges- well defined Lillian Wound- macerated with scar tissue Drainage- large green/blue/yellow purulence (suspected for pseudomonas) Odor- strong No fluctuance or induration Goals- 6fusionel Ag for antimicrobial activity, exudate management and moist wound healing; Vashe forremoval of bioburden and antimicrobial activity . Wound RN consult entered to assess sacral and right buttock wounds and make topical recommendations. Patient presented with R hand infection with increase pain and redness which he had I&D at [facility]. Patient was admitted for R hand cellulitis. Patient has PMH of DM2, HLD, HTN, CECIL, obesity, GERD, PAD s/p L BKA, and perirectal abscess with progressive necrotizing infection s/p debridement and diverting transverse colostomy. Patient is s/p R hand I&D on 08/12/24 by hand surgery and R hand is being managed by hand surgery. Prior to entering the room, direct care RN states patient is appropriate for consultation. Upon entering the room patient is lying in bed, his and Moustapha recognized me from our prior consultation on 06/25/24. Please see my wound RN note from 06/25/24 for more det ails. Wound RN role explained and patient is agreeable to assessment as well as photodocumentation.Patient is able to roll onto his right side and existing dressing to the coccyx and R buttock for visualization of the wound, which is described in detail above. His states, she changed the dressing yesterday and the drainage has been soaking through his dressing to his pants. His reportssince I saw them last, the [facility] nurse did not dress the wound with the recommendations I provided during our last consultation and they had no supplies. The direct care RN assisted and grabbed wound care supplies and I dressed the wound with Aquacel and Mepilex but cleansed with normal saline prior.I recommended Vashe wound cleanser as instructed below and his states she will would like to follow my recommendations. D/t thellarge I would recommend daily wound care dressing changes but advise they can change every other day if the dressing is sticking to wound bed. The observed as I d ressed the wound and she states she feels comfortable performing the dressings. I notified MD Nettie Ramsey regarding the suspected pseudomonas drainage from the wound bed. Would recommend to continue following the colorectal office for wound care follow up. Recommendations given to direct care RN and [employer] message sent to MD Nettie Ramsey as well. Recommendations: 1.) Coccyx and R buttock: Apply Vashe moistened gauze into wound bed. Leave in place for 5-10mins. Pat dry. Cut Aquacel AG into spiral shape to form one long piece. Lightly/gently pack into both wound beds (with tail out for easy retrieval). Apply Z-guard cream to periwound. Cover with Mepilex Border sacrum. Change daily and PRN for soilage. 2.) Continue use of specialty bed/low air loss mattress 3.) Turn and reposition every 2 hours and PRN 4.) Continue incontinence care as well as moisture management; do not utilize Mepilex foam dressingwith incontinence. 5.) Continue to offload bony prominences 6.) Float heels 7.) Continue to provide optimal nutritional support 8.) Provide Gaymar cushion to chair when patient OOB Patient at increased risk for pressure injury development d/t mobility, moisture and current integumentary status, please ensure to utilize pressure prevention interventions Please reconsult for wound care RNs for deterioration in wound/skin status. Plan Time spent 31-45 minutes * Luz Noland MD: PERFORM Event Display: Consult Authored Date: [id number] Patient: ??MOUSTAPHA MEDINA ? Age:??59 Years?Sex:??Male?:??1965?? Chief Complaint/Reason for Consult Right hand abscess History of Present Illness Moustapha is a 59 year old male with a history of ESRD on PD, insulin dependent diabetes, HTN, HLD, CECIL and PAD who presents to [facility] on [place] with concerns of worsening right hand infection. He states he was previously seen at [facility] on Tuesday where he had the abscess incised and drained in the e mergency department and was sent home on oral antibiotics. Since that time, the redness has progressively worsened. He states that was no drainage that he can remember and he has been adhering to strict wound care as he does have visiting nurses come to the house that assist him with care. They recommended putting Santyl on the wound, which he did. After that the wound started to crust. He has otherwise been feeling well without nausea or vomiting and is tolerating his diet well. He does have numbness and tingling in his right fingers a bit worse than his baseline (has diabetic neuropathy). He has not noted motor changes and is still able to flex and extend all five fingers well. He has a palpable pulse and denies temperature changes. He has no subjective signs of infection including fevers or chills. Review of Systems 12 point ROS completed. Negative unless otherwise stated in HPI/subjective. Physical Exam Vitals & Measurements T:??97.4?F?? HR:??81??(Peripheral)?? RR:??18?? BP:??147/95?? SpO2:??98%?? HT:??180??cm?? WT:??113.9??kg?? BMI:??35.15?? GENERAL: No acute distress. Non-toxic. Well appearing and interactive. RESPIRATORY: Equal and symmetric chest rise bilaterally; no increased work of breathing. On room air. MUSCULOSKELETAL: Right upper extremity with roughly 3x3 area of erythema on the dorsal aspect of the hand just distal to the wrist. [place] of wound has dried drainage on it with ulcerated plaque. Painful to palpation, no purulence or drainage able to be expressed with pressure. Indurated. SKIN: Warm and well perfused. Intact skin turgor. No edema noted on exam. NEURO: AOx3 Assessment/Plan Mr. Medina is a 59 year old male with a history of ESRD on PD, insulin dependent diabetes, HTN, HLD, CECIL, PAD, gastric sleeve, colostomy, thyroid lobectomy??who presents to [facility] on 08/11 with concerns of worsening right hand infection s/p recent I&D at [facility] on 08/07. He failed oral antibiotics and represented with worsening erythema and edema. He has been hemodynamically stable on arrival, afebrile. He does have a leukocytosis of 11.6 today, H/H is stable, electrolytes are within normal limits and CRP is 5.0. On exam he does have significant erythema and a dried ulcerated plaque at the location of previous I&D. We will plan for bedside I&D today, note to follow. He should continue with IV abx, packing will be changed by the surgical team in the morning, continue elevation and warm soaks BID. ?? Plan: - Bedside I&D today, note to follow - Pain management - Continue IV abx - Elevate RUE - Keep packing in place until AM - Twice daily packing and soaks ?? Patient was discussed with Dr. Valentin Please page [phone] with questions and concerns. Problem List/Past Medical History Ongoing Chronic kidney disease-mineral and bone disorder CKD (chronic kidney disease) stage V requiring chronic dialysis Diabetes Diabetic neuropathy Diabetic retinopathy ED (erectile dysfunction) GERD (gastroesophageal reflux disease) Glaucoma HLD (hyperlipidemia) HTN (hypertension) Hypertension Insulin dependent type 2 diabetes mellitus Multinodular goiter Nephrolithiasis Nocturnal hypoxia Open wound of foot, complicated CECIL (obstructive sleep apnea) PAD (peripheral artery disease) Peritoneal dialysis status Prostatic hypertrophy Severe obesity (BMI 35.0-39.9) with comorbidity Status post below-knee amputation of left lower extremity Procedure/Surgical History Lap loop transverse colostomy: 04/13/24 Gastric sleeve: 2020 Total thyroid lobectomy, unilateral; with or without isthmusectomy: 03/25/15 PD - Peritoneal dialysis cath Penile prosthesis operation BKA - Below knee amputation-left Amputation of toe-right fourth Achilles tendon rupture repair Debridement of skin, subcutaneous tissue, muscle and fascia for necrotizing soft tissue infection; external genitalia and perineum Home Medications Allopurinol: 100 mg = 1 tablet, By Mouth, Daily Aspirin: 81 mg, By Mouth, Daily Atorvastatin: 10 mg = 1 tablet, By Mouth, Daily at bedtime Benzonatate: 100 mg = 1 capsule, By Mouth, 3 times a day Calcitriol: 0.5 mcg, By Mouth, Every week Carvedilol: 6.25 mg = 1 tablet, By Mouth, 2 times a day Collagenase Topical: 1 application, Topically, Daily Doxycycline Doxycycline Durable Medical Equipment (XL Brava Barrier Strips 50131): See Instructions, use as needed for ostomy maintaince. Dx colostomy Z93.3 Furosemide: 80 mg, Daily Gabapentin: 300 mg = 1 capsule, By Mouth, Daily at bedtime Insulin Glargine: 25 units, Subcutaneous Injection, Daily Insulin Lispro: 9-19 units, Subcutaneous Injection, 3 times a day before meals, << Sliding Scale Comments >>100 - 149 ?? 9 units Call if less than [id number] - 199 ?? 11 units 200 - 249 ?? 13 units 250 - 299 ?? 15 units 300 - 349 ?? 17 units 350 - 399 ?? 19 units Call if greater than 400<< Sliding Scale Comments >> Insulin NPH: 34 units, Subcutaneous Injection, Daily at bedtime Midodrine: 10 mg = 1 tablet, By Mouth, Every 12 hours, PRN (Blood Pressure) Miscellaneous Rx (DEXCOM G7 SENSOR): USE 1 SENSOR EVERY 10 DAYS. Omeprazole: 40 mg = 1 capsule, By Mouth, Daily Sertraline: 50 mg = 1 tablet, By Mouth, Daily Sevelamer: 1,600 mg = 2 tablet, By Mouth, 3 times a day with meals Tamsulosin: 0.4 mg = 1 capsule, By Mouth, Daily at bedtime Allergies Keflex??(muscles locked up, could not move) metFORMIN??(Cefalexin, GI upset) Social History Alcohol Use: Never. Substance Abuse Use: Never. Tobacco Use: Never (less than 100 in lifetime). Family History No family history recorded. Lab Results Labs Last 24 Hours BLOOD COUNT & DIFF ? Event Name?? Event Result?? Date/Time?? WBC 11.9 k/mm3??High 08/12/24 02:02:00 RBC 3.43 m/mm3??Low 08/12/24 02:02:00 Hgb 9.8 Gm/dL??Low 08/12/24 02:02:00 Hct 30.8 %??Low 08/12/24 02:02:00 MCV 89.8 femtoliters 08/12/24 02:02:00 MCH 28.6 pg 08/12/24 02:02:00 MCHC 31.8 Gm/dL??Low 08/12/24 02:02:00 Platelet Count 276 k/mm3 08/12/24 02:02:00 MPV 9.5 femtoliters 08/12/24 02:02:00 Nucleated RBC (Automated) 0 #/100 WBC'S 08/12/24 02:02:00 ? CHEM GENERAL ? Event Name?? Event Result?? Date/Time?? Sodium 138 mmol/L 08/12/24 02:02:00 Chloride 104 mmol/L 08/12/24 02:02:00 Bicarbonate Level 20 mmol/L??Low 08/12/24 02:02:00 Anion Gap 14 mmol/L 08/12/24 02:02:00 Glucose Level 92 mg/dL 08/12/24 02:02:00 BUN 46 mg/dL??High 08/12/24 02:02:00 Creatinine-Blood 5.28 mg/dL??High 08/12/24 02:02:00 ? Images R hand * Homero CASTRO, Pietro Anderson: PERFORM Event Display: Consult Authored Date: [id number] Attending Attestation: I personally discussed the patient's care plan with the resident. ??I agree with the plan stated. Admission evaluation note * Kandi Rivas: PERFORM Event Display: Admission Note Authored Date: [id number] Patient: ??MOUSTAPHA MEDINA ? Age:??59 Years?Sex:??Male?:??1965?? Chief Complaint/Reason for Consultation Right hand infection History of Present Illness ?This is a 59-year-old male??with a past medical history??of diabetes, ESRD on PD,??status post left BKA, perirectal abscesses,??GERD, hyperlipidemia, nephrolithiasis who presented to the ED??due to??right hand infection. ??He states??about a week and a half ago he noticed a small pimple to his right hand. ??A few days later he noticed??the pimple was getting larger and developed some surrounding redness. ??He??states he??was seen at urgent care where he was prescribed doxycycline. ??He then went to [facility]??and had I&D??where a small amount of fluid was removed.?? He continued to take his course of doxycycline but despite this,??redness and pain to the right hand persisted? ?prompting him to come back to the ED for further evaluation today.?? He??reports pain is currently4/10. ??Denies fevers, chills, chest pain, shortness of breath, abdominal pain or nausea. ?Upon arrival to the ED temperature 97.7 pulse 85 respiratory rate 20 BP 157/86 O2 100% on room air.?? Lab workup showed a mild leukocytosis 11.8 with a stable normocytic anemia hemoglobin 10.1, creatinine 5.35.??In the ED he was administered 1 g IV vancomycin, 4 mg IV morphine and admitted to the medical service for further management of his right hand cellulitis.?? Review of Systems General: Denies fevers, chills HEENT: Denies headache Skin: + Right hand infection Cardiac: Denies CP,?? lower extremity edema Respiratory: Denies SOB, cough Abdomen: Denies abdominal pain, nausea, vomiting : Denies difficulty urinating MSK: Denies muscle or joint pains Neuro: Denies VIEYRA, dizziness Objective Measurements?? Height: 180 cm (08/11/24) Weight: 109 kg (08/11/24) Dry Weight: 109 kg (08/11/24) Body Mass Index:??33.64 kg/m2??Critical (08/11/24) ? Vital Signs?? Temperature: 97.6 DegF (08/11/24 11:24:00) Temperature Route: Oral (08/11/24 11:24:00) Pulse Rate: 85 bpm (08/11/24 11:24:00) Respiratory Rate: 18 br/min (08/11/24 17:21:00) Systolic Blood Pressure:??146 mm Hg??High (08/11/24 11:24:00) Diastolic Blood Pressure: 77 mm Hg (08/11/24 11:24:00) Blood pressure sites: Arm, left (08/11/24 11:24:00) Mean Arterial Pressure: 100 mm Hg (08/11/24 11:24:00) Pulse Pressure: 69 mm Hg (08/11/24 11:24:00) Oxygen Saturation: 100 % (08/11/24 11:24:00) Mode of Delivery (Oxygen): Room air (08/11/24 11:24:00) Early Warning Score: 2 (08/11/24 17:22:12) ? Physical Exam General: Age appropriate male, awake, calm, cooperative, laying in the ED stretcher??in NAD HEENT: Moist oral mucosa. Head atraumatic Skin: Dorsal aspect of the right first webbed space with approximate 3x4cm abscess s/p I&D withsome scabbing and surrounding erythema, mild warmth. No active drainage. No fluctuance or significant tenderness to palpation.?? Cardiac: RRR Respiratory: CTAB. Nonlabored GI: Soft, NT, ND +BS Extremities: s/p L BKA??with prosthesis. No BLE edema.?? Neuro: A&Ox3. Assessment/Plan Diagnoses Cellulitis of hand, right ??(L03.113) Depression ??(F32.A) Diabetes mellitus ??(E11.9) ESRD (end stage renal disease) ??(N18.6) HLD (hyperlipidemia) ??(E78.5) HTN (hypertension) ??(I10) ?? Assessment:??This is a 59-year-old male past medical history diabetes, ESRD on PD,??status post left BKA,??hyperlipidemia, GERD??presenting for worsening right hand infection??despite??treatment withdoxycycline outpatient.??Admitted to the medical service for further management of cellulitis. ?? Cellulitis of hand, right (L03.113):?? s/p I&D at [facility] 08/07 and few days PO doxycycline WBC 11.8 --Continue vancomycin 1g IV Q48H --Hold lasix for??now --Elevate RUE --Tylenol PRN mild pain, oxycodone 5 mg PO Q6H PRN moderate pain, Dilaudid 0.5 mg IV Q4H PRN severepain ?? ESRD (end stage renal disease) (N18.6):?? On PD nightly at home --Consult nephrology?? --Avoid nephrotoxins and renally adjust meds as necessary --BMP in AM ?? Diabetes mellitus (E11.9): ??--Continue lantus 25 units subcu daily --Continue NPH 34 units bedtime --Moderate ISS w/ POC monitoring ACHS ?? HTN (hypertension) (I10):?? --??Continue carvedilol??6.25 mg p.o. twice daily ?? Depression (F32.A):?? --Continue sertraline ?? HLD (hyperlipidemia) (E78.5):?? --Continue statin ?? VTE Prophylaxis:??SCDs ?? Ongoing Medical Necessity:??IV abx, failed outpatient PO treatment ?? Code Status:??Full code ?Total time spent performing chart review, assessing patient, reconciling medications, documenting, arranging care and performing complex medical decision making approximately 65 minutes Histories Allergies Allergies ?(Active and Proposed Allergies Only) Keflex? (Severity: Unknown severity, Onset: Unknown) ?Reactions: muscles locked up, could not move metFORMIN? (Severity: Unknown severity, Onset: Unknown) ?Reactions: Cefalexin, GI upset ?Comments: nausea/vomiting ? Past Medical History/Problem List Active Problems(21) Chronic kidney disease-mineral and bone disorder CKD (chronic kidney disease) stage V requiring chronic dialysis Diabetes Diabetic neuropathy Diabetic retinopathy ED (erectile dysfunction) GERD (gastroesophageal reflux disease) Glaucoma HLD (hyperlipidemia) HTN (hypertension) Hypertension Insulin dependent type 2 diabetes mellitus Multinodular goiter Nephrolithiasis Nocturnal hypoxia Obese class I CECIL (obstructive sleep apnea) PAD (peripheral artery disease) Peritoneal dialysis status Prostatic hypertrophy Status post below-knee amputation of left lower extremity ? Past Surgical History Lap loop transverse colostomy: 04/13/24 Gastric sleeve: 2020 Total thyroid lobectomy, unilateral; with or without isthmusectomy: 03/25/15 PD - Peritoneal dialysis cath Penile prosthesis operation Achilles tendon rupture repair BKA - Below knee amputation-left Amputation of toe-right fourth Debridement of skin, subcutaneous tissue, muscle and fascia for necrotizing soft tissue infection; external genitalia and perineum ? Social History Alcohol Details:??Use: Never. Details:??Use: Never. Substance Abuse Details:??Use: Never. Tobacco Details:??Use: Never (less than 100 in lifetime). Details:??Never smoker, Tobacco user in household: No. Code status Full code HCP Shon [phone] ? Family History No Family History documented. ? Medications Home Medications Allopurinol (allopurinol 100 mg oral tablet)??100 Milligram 1 tablet By Mouth Daily Aspirin (aspirin 81 mg oral delayed release tablet)??81 Milligram By Mouth Daily for 30 Days Atorvastatin (atorvastatin 10 mg oral tablet)??1 tab(s) 10 Milligram By Mouth Daily at bedtime Benzonatate (benzonatate 100 mg oral capsule)??1 capsule 100 Milligram By Mouth 3 times a day Calcitriol (calcitriol 0.25 mcg oral capsule)??0.5 Microgram By Mouth Every week for 30 Days Carvedilol (carvedilol 6.25 mg oral tablet)??6.25 Milligram 1 tablet By Mouth 2 times a day for 30 Days Collagenase Topical (Santyl 250 u/gm ointment)??1 lazarus Topically Daily Durable Medical Equipment (XL Brava Barrier Strips 56803)??See Instructions use as needed for ostomy maintaince. Dx colostomy Z93.3 Furosemide??80 Milligram Daily Gabapentin (gabapentin 300 mg oral capsule)??300 Milligram 1 capsule By Mouth Daily at bedtime Insulin Glargine (insulin glargine 100 units/mL subcutaneous solution)??25 unit(s) Subcutaneous Injection Daily for 30 Days Insulin Lispro (insulin lispro 100 u/ml subcutaneous injection)??9-19 units Subcutaneous Injection 3 times a day before meals << Sliding Scale Comments >>100 - 149 ?? 9 units Call if lessthan [id number] - 199 ?? 11 units 200 - 249 ?? 13 units 250 - 299 ?? 15 units 300 - 349 ?? 17 units 350 - 399 ?? 19 units Call if greater than 400<< Sliding Scale Comments >> Insulin NPH (insulin isophane human recombinant 100 u/ml subcutaneous injection)??34 unit(s) Subcutaneous Injection Daily at bedtime for 30 Days Midodrine (midodrine 10 mg oral tablet)??1 tab(s) 10 Milligram By Mouth Every 12 hours as needed Blood Pressure Miscellaneous Rx (DEXCOM G7 SENSOR)??USE 1 SENSOR EVERY 10 DAYS. Omeprazole (omeprazole 40 mg oral enteric coated capsule)??1 capsule 40 Milligram By Mouth Daily Sertraline (sertraline 50 mg oral tablet)??1 tab(s) 50 Milligram By Mouth Daily Sevelamer (sevelamer carbonate 800 mg oral tablet)??2 tab(s) 1,600 Milligram By Mouth 3 times a daywith meals for 30 Days Tamsulosin (tamsulosin 0.4 mg oral capsule)??0.4 Milligram 1 capsule By Mouth Daily at bedtime for 30 Days ? Inpatient Medications Medications (29) Active SCHEDULED: (13) Allopurinol 100 mg Tablet (allopurinol 100 mg oral tablet) ??100 mg, By Mouth, Daily Aspirin 81 mg EC Tablet (aspirin 81 mg oral delayed release tablet) ??81 mg, By Mouth, Daily Atorvastatin 10 mg Tablet (atorvastatin 10 mg oral tablet) ??10 mg, By Mouth, Daily at bedtime Carvedilol 6.25 mg Tablet (carvedilol 6.25 mg oral tablet) ??6.25 mg, By Mouth, 2 times a day Gabapentin 300 mg Capsule (gabapentin 300 mg oral capsule) ??300 mg, By Mouth, Daily at bedtime Insulin Glargine 100 units/mL Inj (Insulin Glargine Inj) ??25 units 0.25 mL, Subcutaneous Injection, Daily Insulin Lispro 100 units/mL Inj (Insulin LISPRO Scale) ??3-15 units, Subcutaneous Injection, 3 times a day before meals Insulin N 100 units/mL (10mL) (Insulin NPH Human Inj) ??34 units 0.34 mL, Subcutaneous Injection, Daily at bedtime NaCl 0.9% Flush 3ml (NaCL 0.9% Flush) ??3 mL, IV Push, Every 8 hours Pantoprazole 40 mg EC Tablet (Protonix 40 mg oral delayed release tablet) ??40 mg, By Mouth, Daily Sertraline 50 mg Tablet (sertraline 50 mg oral tablet) ??50 mg, By Mouth, Daily Tamsulosin 0.4 mg Capsule (tamsulosin 0.4 mg oral capsule) ??0.4 mg, By Mouth, Daily at bedtime [facility] To Dose ??1 each, IVPB, Daily CONTINUOUS: (0) PRN: (16) Acetaminophen 325 mg Tablet (Acetaminophen Tablet) ??650 mg, By Mouth, Every 4 hours Dextromethorphan-Guaifenesin 20 mg-200 mg/10 mL Liqu UD (Robitussin DM Liquid) ??10 mL, By Mouth, Every 4 hours Dextrose Inj Syringe (Dextrose 50% Inj Syringe (25Gm)) ??12.5 Gm, IV Push Slowly, Every 20 minutes Dextrose Inj Syringe (Dextrose 50% Inj Syringe (25Gm)) ??25 Gm, IV Push Slowly, Every 15 minutes Docusate Sodium 100 mg Capsule (Docusate Sodium Capsule) ??100 mg 1 capsule, By Mouth, 2 times a day Glucagon 1 mg Inj (Glucagon Inj) ??1 mg, Intramuscular, Once Glucose 40% Gel (15 Gm) (Glucose Gel) ??15 Gm, By Mouth, Every 20 minutes Glucose 40% Gel (15 Gm) (Glucose Gel) ??30 Gm, By Mouth, Every 20 minutes HYDROmorphone 0.5 mg/0.5 mL Inj Syringe (Dilaudid Inj) ??0.5 mg 0.5 mL, IV Push Slowly, Every 4 hours Melatonin 3 mg Tablet (Melatonin Tablet) ??3 mg, By Mouth, Daily at bedtime NaCl 0.9% Flush 3ml (NaCL 0.9% Flush) ??3 mL, IV Push, Every 8 hours Ondansetron 2mg/mL Inj (2mL Vial) (Ondansetron Inj) ??4 mg, IV Push Slowly, Every 30 minutes OxyCODONE 5 mg IR Tablet (oxyCODONE 5 mg oral tablet) ??5 mg, By Mouth, Every 6 hours Polyethylene Glycol 17 Gm Powder (MiraLax Powder) ??17 Gm 1 pack/packet, By Mouth, Daily Senna Tablet ??8.6 mg 1 tablet, By Mouth, 2 times a day Simethicone 80 mg Chewable Tablet (Simethicone Tablet) ??80 mg, Chew, 3 times a day ? Results Recent Labs BLOOD COUNT & DIFF WBC 11.8 k/mm3 (High)?? 08/11/2024 12:45 RBC 3.57 m/mm3 (Low)?? 08/11/2024 12:45 Hgb 10.1 Gm/dL (Low)?? 08/11/2024 12:45 Hct 31.6 % (Low)?? 08/11/2024 12:45 MCV 88.5 femtoliters ()?? 08/11/2024 12:45 MCH 28.3 pg ()?? 08/11/2024 12:45 MCHC 32.0 Gm/dL (Low)?? 08/11/2024 12:45 Platelet Count 255 k/mm3 ()?? 08/11/2024 12:45 RDW-SD 51.5 femtoliters (High)?? 08/11/2024 12:45 MPV 8.9 femtoliters (Low)?? 08/11/2024 12:45 Nucleated RBC (Automated) 0.0 #/100 WBC'S ()?? 08/11/2024 12:45 Abs. NRBC 0.0 k/mm3 ()?? 08/11/2024 12:45 Abs. Neut 9.4 k/mm3 (High)?? 08/11/2024 12:45 Abs. Lymph 1.5 k/mm3 ()?? 08/11/2024 12:45 Abs. [place] 0.7 k/mm3 ()?? 08/11/2024 12:45 Abs. Eo 0.1 k/mm3 ()?? 08/11/2024 12:45 Abs. Baso 0.1 k/mm3 ()?? 08/11/2024 12:45 Neut % 79.5 % (High)?? 08/11/2024 12:45 Lymph % 12.3 % (Low)?? 08/11/2024 12:45 [place] % 5.8 % ()?? 08/11/2024 12:45 Eos % 1.2 % ()?? 08/11/2024 12:45 Baso % 0.4 % ()?? 08/11/2024 12:45 Imm Gran 0.8 % ()?? 08/11/2024 12:45 Abs. Imm Gran 0.1 k/mm3 ()?? 08/11/2024 12:45 ?? CHEM GENERAL Sodium 137 mmol/L ()?? 08/11/2024 12:45 Potassium 4.9 mmol/L ()?? 08/11/2024 12:45 Chloride 103 mmol/L ()?? 08/11/2024 12:45 Bicarbonate Level 24 mmol/L ()?? 08/11/2024 12:45 Anion Gap 10 mmol/L ()?? 08/11/2024 12:45 Glucose Level 129 mg/dL (High)?? 08/11/2024 12:45 BUN 45 mg/dL (High)?? 08/11/2024 12:45 Creatinine-Blood 5.35 mg/dL (High)?? 08/11/2024 12:45 Estimated GFR Creatinine 12 ML/MIN/1.73 M2 ()?? 08/11/2024 12:45 Calcium 9.1 mg/dL ()?? 08/11/2024 12:45 Lactate 0.7 mmol/L ()?? 08/11/2024 12:45 ?? URINE OTHER Est Creatinine Clearance 16.16 mL/min ()?? 08/11/2024 13:26 ? Abnormal Labs ?? BLOOD COUNT & DIFF Abs. Imm Gran?0.1 k/mm3 ()?08/11/2024 12:45 Abs. NRBC?0.0 k/mm3 ()?08/11/2024 12:45 Abs. Neut?9.4 k/mm3 (High)?08/11/2024 12:45 Hct?31.6 % (Low)?08/11/2024 12:45 Hgb?10.1 Gm/dL (Low)?08/11/2024 12:45 Imm Gran?0.8 % ()?08/11/2024 12:45 Lymph %?12.3 % (Low)?08/11/2024 12:45 MCHC?32.0 Gm/dL (Low)?08/11/2024 12:45 MPV?8.9 femtoliters (Low)?08/11/2024 12:45 Neut %?79.5 % (High)?08/11/2024 12:45 Nucleated RBC (Automated)?0.0 #/100 WBC'S ()?08/11/2024 12:45 RBC?3.57 m/mm3 (Low)?08/11/2024 12:45 RDW-SD?51.5 femtoliters (High)?08/11/2024 12:45 WBC?11.8 k/mm3 (High)?08/11/2024 12:45 ?? CHEM GENERAL BUN?45 mg/dL (High)?08/11/2024 12:45 Creatinine-Blood?5.35 mg/dL (High)?08/11/2024 12:45 Estimated GFR Creatinine?12 ML/MIN/1.73 M2 ()?08/11/2024 12:45 Glucose Level?129 mg/dL (High)?08/11/2024 12:45 ?? Note: Critical results are displayed in red. ? Blood Glucose Trend Glucose Level:??129 mg/dL??High (08/11/24 12:45:00) ? CBC, CBC w/Diff?? CBC?? Differential?? WBC:??11.8 k/mm3??High (12:45) Abs. Neut:??9.4 k/mm3??High (12:45) RBC:??3.57 m/mm3??Low (12:45) Abs. Lymph: 1.5 k/mm3 (12:45) Hct:??31.6 %??Low (12:45) Abs. Billings: 0.7 k/mm3 (12:45) RDW-SD:??51.5 femtoliters??High (12:45) Abs. Eo: 0.1 k/mm3 (12:45) Nucleated RBC (Automated): 0 #/100 WBC'S (12:45) Abs. Baso: 0.1 k/mm3 (12:45) Abs. NRBC: 0 k/mm3 (12:45) Neut %:??79.5 %??High (12:45) ?? Lymph %:??12.3 %??Low (12:45) ?? Bill[place] %: 5.8 % (12:45) ?? Eos %: 1.2 % (12:45) ?? Baso %: 0.4 % (12:45) ?? Imm Gran: 0.8 % (12:45) ?? Abs. Imm Gran: 0.1 k/mm3 (12:45) ? BMP, Mg, and Phos Anion Gap: 10 mmol/L (12:45) Bicarbonate Level: 24 mmol/L (12:45) BUN:??45 mg/dL??High (12:45) Calcium: 9.1 mg/dL (12:45) Chloride: 103 mmol/L (12:45) Creatinine-Blood:??5.35 mg/dL??High (12:45) Estimated GFR Creatinine: 12 ML/MIN/1.73 M2 (12:45) Glucose Level:??129 mg/dL??High (12:45) Potassium: 4.9 mmol/L (12:45) Sodium: 137 mmol/L (12:45) ?? Coagulation Profile?? No qualifying data available. ?? LFT?? No qualifying data available. ?? Urinalysis Est Creatinine Clearance: 16.16 mL/min (13:26) ? Blood Gases?? No qualifying data available. ? Hospital Progress note * Thad VANN, Cherie Billy: PERFORM Event Display: Progress Note Hospital Authored Date: [id number] Patient: ??MOUSTAPHA MEDINA ? Age:??59 Years?Sex:??Male?:??1965?? Subjective UF PD negative 61 ml today, no complications completed abtx, hoping to go home today Review of Systems negative unless otherwise specified above Objective Vital Signs?? Temperature: 97.5 DegF (08/17/24 14:08:00) Temperature Route: Oral (08/17/24 14:08:00) Pulse Rate: 77 bpm (08/17/24 14:08:00) Respiratory Rate: 17 br/min (08/17/24 14:08:00) Systolic Blood Pressure: 126 mm Hg (08/17/24 14:08:00) Diastolic Blood Pressure:??88 mm Hg??High (08/17/24 14:08:00) Blood pressure sites: Arm, right (08/17/24 14:08:00) Mean Arterial Pressure: 101 mm Hg (08/17/24 14:08:00) Pulse Pressure: 38 mm Hg (08/17/24 14:08:00) Oxygen Saturation: 100 % (08/17/24 14:08:00) Mode of Delivery (Oxygen): Room air (08/17/24 14:08:00) Early Warning Score: 3 (08/17/24 14:11:27) ? Intake/Output? 08/11 14:58 08/17 07:00 08/16 07:00 08/15 07:00 08/14 07:00 ?? 08/17 14:40 08/17 14:40 08/17 06:59 08/16 06:59 08/15 06:59 Intake ? 2203 ? 61 ?236 ?590 ?692 Output ? 1489 ?0 ?0 ? 1387 ?0 Net Total ?714 ? 61 ?236 ? -797 ?692 ? Urine Count ?4 ?0 ?3 ?0 ?1 ? Physical Exam General: well appearing, in no acute distress Respiratory: Bilateral chest rise Extremities: No lower extremity edema.?? Neuro: Alert and oriented _ Inpatient Medications Medications (39) Active SCHEDULED: (17) Allopurinol 100 mg Tablet (allopurinol 100 mg oral tablet) ??100 mg, By Mouth, Daily Aspirin 81 mg EC Tablet (aspirin 81 mg oral delayed release tablet) ??81 mg, By Mouth, Daily Atorvastatin 10 mg Tablet (atorvastatin 10 mg oral tablet) ??10 mg, By Mouth, Daily at bedtime Calcitriol 0.25 mcg Capsule (calcitriol 0.25 mcg oral capsule) ??0.5 mcg, By Mouth, Every week Carvedilol 6.25 mg Tablet (carvedilol 6.25 mg oral tablet) ??6.25 mg, By Mouth, 2 times a day Dakins Solution 0.0125% Strength (Dakins 0.0125% Topical Solution) ??0.0125 % 473 mL, Topically, 2 times a day Furosemide 80 mg Tablet (Lasix 80 mg oral tablet) ??80 mg, By Mouth, Daily Gabapentin 300 mg Capsule (gabapentin 300 mg oral capsule) ??300 mg, By Mouth, Daily at bedtime Heparin 5000 units/mL Inj (1 mL) (Heparin Inj) ??5,000 units 1 mL, Subcutaneous Injection, 3 times a day Insulin Glargine 100 units/mL Inj (Insulin Glargine Inj) ??25 units 0.25 mL, Subcutaneous Injection, Daily Insulin Lispro 100 units/mL Inj (Insulin LISPRO Scale) ??3-15 units, Subcutaneous Injection, 3 times a day before meals Insulin N 100 units/mL (10mL) (Insulin NPH Human Inj) ??34 units 0.34 mL, Subcutaneous Injection, Daily at bedtime NaCl 0.9% Flush 3ml (NaCL 0.9% Flush) ??3 mL, IV Push, Every 8 hours Pantoprazole 40 mg EC Tablet (Protonix 40 mg oral delayed release tablet) ??40 mg, By Mouth, Daily Sertraline 50 mg Tablet (sertraline 50 mg oral tablet) ??50 mg, By Mouth, Daily Tamsulosin 0.4 mg Capsule (tamsulosin 0.4 mg oral capsule) ??0.4 mg, By Mouth, Daily at bedtime Vashe Wound Care Emollient/Cleanser (Vashe Topical Solution) ??475 mL, Topically, Daily CONTINUOUS: (0) PRN: (22) Acetaminophen 325 mg Tablet (Acetaminophen Tablet) ??650 mg, By Mouth, Every 4 hours Dextromethorphan-Guaifenesin 20 mg-200 mg/10 mL Liqu UD (Robitussin DM Liquid) ??10 mL, By Mouth, Every 4 hours Dextrose Inj Syringe (Dextrose 50% Inj Syringe (25Gm)) ??12.5 Gm, IV Push Slowly, Every 20 minutes Dextrose Inj Syringe (Dextrose 50% Inj Syringe (25Gm)) ??25 Gm, IV Push Slowly, Every 15 minutes Dextrose Inj Syringe (Dextrose 50% Inj Syringe (25Gm)) ??12.5 Gm, IV Push Slowly, Every 20 minutes Dextrose Inj Syringe (Dextrose 50% Inj Syringe (25Gm)) ??25 Gm, IV Push Slowly, Every 15 minutes Docusate Sodium 100 mg Capsule (Docusate Sodium Capsule) ??100 mg 1 capsule, By Mouth, 2 times a day Glucagon 1 mg Inj (Glucagon Inj) ??1 mg, Intramuscular, Once Glucagon 1 mg Inj (Glucagon Inj) ??1 mg, Intramuscular, Once Glucose 40% Gel (15 Gm) (Glucose Gel) ??15 Gm, By Mouth, Every 20 minutes Glucose 40% Gel (15 Gm) (Glucose Gel) ??30 Gm, By Mouth, Every 20 minutes Glucose 40% Gel (15 Gm) (Glucose Gel) ??15 Gm, By Mouth, Every 20 minutes Glucose 40% Gel (15 Gm) (Glucose Gel) ??30 Gm, By Mouth, Every 20 minutes HYDROmorphone 0.5 mg/0.5 mL Inj Syringe (Dilaudid Inj) ??0.5 mg 0.5 mL, IV Push Slowly, Every 4 hours Lactulose 20 Gm/30mL Syrup (lactulose 10 gm/15 ml oral syrup) ??20 Gm 30 mL, By Mouth, 3 times a day Melatonin 3 mg Tablet (Melatonin Tablet) ??3 mg, By Mouth, Daily at bedtime NaCl 0.9% Flush 3ml (NaCL 0.9% Flush) ??3 mL, IV Push, Every 8 hours Ondansetron 2mg/mL Inj (2mL Vial) (Ondansetron Inj) ??4 mg, IV Push Slowly, Every 30 minutes OxyCODONE 5 mg IR Tablet (oxyCODONE 5 mg oral tablet) ??5 mg, By Mouth, Every 6 hours Polyethylene Glycol 17 Gm Powder (MiraLax Powder) ??17 Gm 1 pack/packet, By Mouth, Daily Senna Tablet ??8.6 mg 1 tablet, By Mouth, 2 times a day Simethicone 80 mg Chewable Tablet (Simethicone Tablet) ??80 mg, Chew, 3 times a day ? Results Recent Labs BACTERIOLOGY Blood Culture Results Final report ()?? 08/11/2024 12:44 Blood Cult 2 Results Final report ()?? 08/11/2024 13:06 ?? BLOOD COUNT & DIFF WBC 10.5 k/mm3 ()?? 08/17/2024 00:15 RBC 3.47 m/mm3 (Low)?? 08/17/2024 00:15 Hgb 9.8 Gm/dL (Low)?? 08/17/2024 00:15 Hct 31.3 % (Low)?? 08/17/2024 00:15 MCV 90.2 femtoliters ()?? 08/17/2024 00:15 MCH 28.2 pg ()?? 08/17/2024 00:15 MCHC 31.3 Gm/dL (Low)?? 08/17/2024 00:15 Platelet Count 251 k/mm3 ()?? 08/17/2024 00:15 RDW-SD 52.4 femtoliters (High)?? 08/17/2024 00:15 MPV 9.9 femtoliters ()?? 08/17/2024 00:15 Nucleated RBC (Automated) 0.0 #/100 WBC'S ()?? 08/17/2024 00:15 Abs. NRBC 0.0 k/mm3 ()?? 08/17/2024 00:15 Abs. Neut 5.9 k/mm3 ()?? 08/16/2024 06:33 Abs. Lymph 1.9 k/mm3 ()?? 08/16/2024 06:33 Abs. Billings 0.6 k/mm3 ()?? 08/16/2024 06:33 Abs. Eo 0.2 k/mm3 ()?? 08/16/2024 06:33 Abs. Baso 0.0 k/mm3 ()?? 08/16/2024 06:33 Neut % 67.4 % ()?? 08/16/2024 06:33 Lymph % 22.0 % ()?? 08/16/2024 06:33 Billings % 7.1 % ()?? 08/16/2024 06:33 Eos % 2.0 % ()?? 08/16/2024 06:33 Baso % 0.5 % ()?? 08/16/2024 06:33 Imm Gran 1.0 % ()?? 08/16/2024 06:33 Abs. Imm Gran 0.1 k/mm3 ()?? 08/16/2024 06:33 ?? CHEM GENERAL Sodium 134 mmol/L ()?? 08/17/2024 00:15 Potassium 4.4 mmol/L ()?? 08/17/2024 00:15 Chloride 100 mmol/L ()?? 08/17/2024 00:15 Bicarbonate Level 22 mmol/L ()?? 08/17/2024 00:15 Anion Gap 12 mmol/L ()?? 08/17/2024 00:15 Glucose Level 222 mg/dL (High)?? 08/17/2024 00:15 Glucose, POC 159 mg/dL (High)?? 08/17/2024 11:06 BUN 51 mg/dL (High)?? 08/17/2024 00:15 Creatinine-Blood 5.31 mg/dL (High)?? 08/17/2024 00:15 Estimated GFR Creatinine 12 ML/MIN/1.73 M2 ()?? 08/17/2024 00:15 Calcium 8.9 mg/dL ()?? 08/17/2024 00:15 Magnesium 1.8 mg/dL ()?? 08/16/2024 06:33 ?? TOXICOLOGY/TDM Vancomycin Level, Random 24.0 mg/L ()?? 08/16/2024 10:13 Vancomycin Level, Trough 24.6 mg/L (High)?? 08/16/2024 06:33 ?? URINE OTHER Est Creatinine Clearance 16.28 mL/min ()?? 08/17/2024 02:03 ? Assessment/Plan ??Moustapha Medina is a 59-year-old male with past medical history of ESRD on PD, T2DM, HTN, PAD s/pL BKA, perirectal abscess with progressive necrotizing infection requiring wide debridement and diverting transverse colostomy who presented with concern for right hand infection.??Pt was admitted for right hand cellulitis and Nephrology consulted for ESRD.??S/p bedside I&D on 08/12 and 08/14 forremoval of devitalized skin and fat. ?? 1. ESRD Home PD prescription: 10.5 hours, fill volume 2800 mL, 5 exchanges, 1.5% dialysate, last fill 1000 mL ?? 2. Hypertension / Volume Chronically pt is taking carvedilol 6.25 mg BID and furosemide 80 mg daily ?? 3. Nephrogenic Anemia Hgb 10.7 (08/16) TSat??25%, Ferritin 1121 (08/09) ?? 4. Mineral Bone Disease Ca 9.6 (08/16) Phos 4.7, PTH 304 (08/09) ?? Recommendations:?? - Continue PD nightly: 10 hours, TV 04170, FV 2800, 2.5% dialysate, no last fill - Continue??carvedilol 6.25 mg BID and furosemide 80 mg daily - Continue calcitriol 0.5 mcg once weekly - Renal diet - Dose meds per PD ?Thank you,??will continue to follow. ?Cherie Oneil HAND TUBE BENDER ?[facility] ?Discussed with ??Suzanne? * Jasmin Palacios MD: PERFORM Event Display: Progress Note [facility] Authored Date: Patient and charted reviewed. Management discussed with PA. ??Continue the current management as documented in PA's chart. IF UF remains limited tomorrow, to use one 4.5% bag tomorrow. For today, continue current prescription * Morgan Echeverria MD: PERFORM Event Display: Progress Note Hospital Authored Date: Patient: ??MOUSTAPHA MEDINA ? Age:??59 Years?Sex:??Male?:??1965?? Subjective No acute events overnight.?No complaints regarding the hand.??Denies shortness of breath, nauseaor vomiting, chest pain, fever or chills. Physical Exam Vitals & Measurements T:??97.7?F?? HR:??98??(Peripheral)?? RR:??18?? BP:??130/94?? SpO2:??98%?? HT:??180??cm?? WT:??113.9??kg?? BMI:??35.15?? General: well-appearing, NAD CV: regular rate Resp: nonlabored, symmetric on RA Abd: soft, nontender, nondistended Extrem: Right upper extremity with??3 cm incision site on??dorsal aspect of the hand just distal tothe wrist.?? Wound base appears clean with mild fibrinous tissue. No purulence Assessment/Plan Mr. Medina is a 59 year old male with a history of ESRD on PD, insulin dependent diabetes, HTN, HLD, CECIL, PAD, gastric sleeve, colostomy, thyroid lobectomy??who presents to [facility] on 08/11 with concerns of worsening right hand infection s/p recent I&D at [facility] on 08/07. He is now s/p bedside I&D on 08/12 and 08/14 for removal of devitalized skin and fat. Currently managing wound with BID dressing changes. Wound is improving,??healing well with granulation tissue present. ?? Plan: -??BID??dressing changes with WTD Vashe, consider US to rule out??drainable collection if fails to improve, also consider noninfectious etiologies if continues to demonstrate pathergy (PVD, calciphylaxis, etc) - BID irrigation with warm soapy water (can wash with running water and soap) - Pain management - Continue IV abx - Elevate RUE - Hand surgery to sign off, please ?? Patient was discussed with Dr. Valentin Please page [phone] with questions and concerns Intake and Output Intake and Output Results?? This visit (24 hour periods starting at 07:00 EST)? 08/17/24 *?? 08/16/24?? 08/15/24?? Total Summary?Intake mL?? --?? 236?? 590?Output mL?? --?? --?? 1,387?Fluid Balance ?? --?? 236?? -797?? Intake (1)?Oral Fluids mL?? --?? 236?? 590?Total?? --?? 236?? 590?? Output (2)?Colos/Ileostomy Vol mL?? --?? --?? 1?PD Ultrafiltration (Volume Removed) mL?? --?? --?? 1,386?Total?? --?? --?? 1,387?? Counts (2)?Oral Fluids mL?? --?? 236?? 590?Urine Count ?? --?? 3?? --? * This column has not completed the indicated time period.?? Labs Last 24 Hours BLOOD COUNT & DIFF ? Event Name?? Event Result?? Date/Time?? WBC 10.5 k/mm3 08/17/24 00:15:00 RBC 3.47 m/mm3??Low 08/17/24 00:15:00 Hgb 9.8 Gm/dL??Low 08/17/24 00:15:00 Hct 31.3 %??Low 08/17/24 00:15:00 MCV 90.2 femtoliters 08/17/24 00:15:00 MCH 28.2 pg 08/17/24 00:15:00 MCHC 31.3 Gm/dL??Low 08/17/24 00:15:00 Platelet Count 251 k/mm3 08/17/24 00:15:00 MPV 9.9 femtoliters 08/17/24 00:15:00 Nucleated RBC (Automated) 0 #/100 WBC'S 08/17/24 00:15:00 ? CHEM GENERAL ? Event Name?? Event Result?? Date/Time?? Sodium 134 mmol/L 08/17/24 00:15:00 Chloride 100 mmol/L 08/17/24 00:15:00 Bicarbonate Level 22 mmol/L 08/17/24 00:15:00 Anion Gap 12 mmol/L 08/17/24 00:15:00 Glucose Level 222 mg/dL??High 08/17/24 00:15:00 BUN 51 mg/dL??High 08/17/24 00:15:00 Creatinine-Blood 5.31 mg/dL??High 08/17/24 00:15:00 ? * Homero CASTRO, Pietro Anderson: PERFORM Event Display: Progress Note Hospital Authored Date: [id number] Attending Attestation: I personally discussed the patient's care plan with the resident. ??I agree with the plan stated. * Charley Cooper RN: SIGN, PERFORM, VERIFY Event Display: Progress Note Hospital Authored Date: [id number] Patient: MOUSTAPHA MEDINA Age: 59 years Sex: Male : 1965 Associated Diagnoses: None Author: Charley Cooper RN Findings Problem Related to Alteration in Integumentary : Alteration in Integumentary/new 08/16/2024 17:00 EST Alteration in Integumentary Related to Cellulitis, Pressure, Other: cellulitis of right hand Goals & Outcomes, Integumentary Wound will progress towards healing Interventions, Integumentary Cleanse all wounds with Normal Saline, Consult Wound Care as needed for further interventions, Encourage & assist pt to change position frequently, Encourage & assist with range of motion exercises, Encourage family participation in pt's care as they are able, Ensure relief modes are on mattress surface & utilized, Increase turning frequency if red or blanched areas appear, Keep bed as flat as tolerated to reduce shearing, Keep linen clean, dry and wrinkle free, Keep skin clean & dry, Maintain sterile technique with dressing changes, Minimize friction, shear and moisture, Monitor reddened areas for continued or increasing reddness, Record extent of impaired skin integrity, Relieve pressure off bony areas, Reposition pt off reddened areas, TeachPt/caregiver s/s of infection, Teach Pt/S.O. risks of & measures to prevent skin breakdown, Usebarrier cream/ointment if pt's skin is frequently moist BH Goals/Interventions, Integumentary Yes Integumentary, Problem Start 08/12/2024 2:19 Reviewed plan with, Integumentary Patient Patient Progression, Integumentary Pt progressing according to plan . Nursing Data Vital Signs : VITAL SIGNS SECTION 08/16/2024 16:25 EST Early Warning Score 2.00 08/16/2024 15:23 EST Early Warning Score 2.00 08/16/2024 15:23 EST Temperature 97.5 DegF Temperature Route Oral Pulse Rate 78 bpm Respiratory Rate 18 br/min Systolic Blood Pressure 154 mm Hg H Diastolic Blood Pressure 110 mm Hg H Blood pressure sites Arm, left Mean Arterial Pressure 125 mm Hg Pulse Pressure 44 mm Hg Oxygen Saturation 100 % Mode of Delivery (Oxygen) Room air 08/16/2024 11:06 EST Early Warning Score 2.00 08/16/2024 8:17 EST Early Warning Score 2.00 08/16/2024 8:15 EST Pulse Rate 73 bpm Systolic Blood Pressure 151 mm Hg H Diastolic Blood Pressure 97 mm Hg H 08/16/2024 7:38 EST Early Warning Score 2.00 08/16/2024 7:20 EST Early Warning Score 2.00 08/16/2024 7:19 EST Early Warning Score 2.00 08/16/2024 7:19 EST Temperature 97.5 DegF Temperature Route Oral Pulse Rate 73 bpm Respiratory Rate 16 br/min Systolic Blood Pressure 151 mm Hg H Diastolic Blood Pressure 97 mm Hg H Blood pressure sites Arm, left Mean Arterial Pressure 115 mm Hg Pulse Pressure 54 mm Hg Oxygen Saturation 100 % Mode of Delivery (Oxygen) Room air . Evaluation Pt. alert and oriented X4. No SOB/ chest pain or reports of pain at this time. VSS. Colostomy cleanand intact with good output. Pt. anuric. Ambulating independently. Pt. resting comfortably in bed, call nolen within reach and bed in lowest position. Plan of care ongoing.. Note * Charley Cooper RN: PERFORM Event Display: Discharge/Transfer Note Hospital Authored Date: [id number] Nursing Discharge Note Entered On: 08/17/2024 16:39 EST Performed On: 08/17/2024 16:39 EST by Charley Cooper RN Nursing Discharge Note 2 Discharge Time : 08/17/2024 16:39 EST Discharge Level of Care at Discharge : Homehealth/VNA Discharge VNA/Hospice/Home Care(v001) : [facility] [phone] Patient Left Unit Via : Wheelchair Patient Accompanied Off Unit with : Significant other DC Instructions Provided & Signed by Pt : Yes Patient Understands D/C Instructions : Yes Patient Instructions Discharge Signed : Yes Did Pt have Specialty Bed or Wound Vac : Yes Kenneth BULLARD, Porshasarathdaisy - 08/17/2024 16:39 EST * Victor M CASTRO, Wily: PERFORM Event Display: Discharge/Transfer Note Hospital Authored Date: [id number] Patient: ??MOUSTAPHA MEDINA ? Age:??59 Years?Sex:??Male?:??1965?? Patient Information Discharge Location: W3 Primary Care Physician: Sebastian CASTRO , Shereen Banerjee Admit Date/Time: 08/11/2024 14:58 Discharge Disposition Discharge Disposition: Home with Home Health Discharge Diagnosis Abscess of right hand (L02.511) ESRD on peritoneal dialysis (N18.6) Diabetes mellitus with end stage renal disease (E11.22) _ Discharge Medications Allopurinol (allopurinol 100 mg oral tablet)??100 Milligram 1 tablet By Mouth Daily Aspirin (aspirin 81 mg oral delayed release tablet)??81 Milligram By Mouth Daily for 30 Days Atorvastatin (atorvastatin 10 mg oral tablet)??1 tab(s) 10 Milligram By Mouth Daily at bedtime Benzonatate (benzonatate 100 mg oral capsule)??1 capsule 100 Milligram By Mouth 3 times a day Calcitriol (calcitriol 0.25 mcg oral capsule)??0.5 Microgram By Mouth Every week for 30 Days Carvedilol (carvedilol 6.25 mg oral tablet)??6.25 Milligram 1 tablet By Mouth 2 times a day for 30 Days Collagenase Topical (Santyl 250 u/gm ointment)??1 lazarus Topically Daily Durable Medical Equipment (XL Brava Barrier Strips 56914)??See Instructions use as needed for ostomy maintaince. Dx colostomy Z93.3 Furosemide??80 Milligram Daily Gabapentin (gabapentin 300 mg oral capsule)??300 Milligram 1 capsule By Mouth Daily at bedtime Insulin Glargine (insulin glargine 100 units/mL subcutaneous solution)??25 unit(s) Subcutaneous Injection Daily for 30 Days Insulin Lispro (insulin lispro 100 u/ml subcutaneous injection)??9-19 units Subcutaneous Injection 3 times a day before meals << Sliding Scale Comments >>100 - 149 ?? 9 units Call if lessthan [phone] - 199 ?? 11 units 200 - 249 ?? 13 units 250 - 299 ?? 15 units 300 - 349 ?? 17 units 350 - 399 ?? 19 units Call if greater than 400<< Sliding Scale Comments >> Insulin NPH (insulin isophane human recombinant 100 u/ml subcutaneous injection)??34 unit(s) Subcutaneous Injection Daily at bedtime for 30 Days Midodrine (midodrine 10 mg oral tablet)??1 tab(s) 10 Milligram By Mouth Every 12 hours as needed Blood Pressure Miscellaneous Rx (DEXCOM G7 SENSOR)??USE 1 SENSOR EVERY 10 DAYS. Omeprazole (omeprazole 40 mg oral enteric coated capsule)??1 capsule 40 Milligram By Mouth Daily Oxycodone (oxyCODONE 5 mg oral tablet)??5 Milligram By Mouth Every 8 hours as needed for 5 Days Pain , Moderate Sertraline (sertraline 50 mg oral tablet)??1 tab(s) 50 Milligram By Mouth Daily Sevelamer (sevelamer carbonate 800 mg oral tablet)??2 tab(s) 1,600 Milligram By Mouth 3 times a daywith meals for 30 Days Tamsulosin (tamsulosin 0.4 mg oral capsule)??0.4 Milligram 1 capsule By Mouth Daily at bedtime for 30 Days ? Durable Medical Equipment On Admit VNA/Hospice/Home Care: [facility]. (08/13/24) Discharge recommendations: Post acute rehab facility (06/30/24) Discharge Medical Equipment Companies: [employer] (04/19/24) Name of Agency #1: [facility] (08/17/24) Agency Client Technologies Specialist #1: Intake (08/17/24) Service Categories #1: Long Term (08/17/24) Service Comments #1: You will resume services with [facility]. We have updated them of your discharge. If you do not hear from them 24-48 hours after discharge please call them at [phone]. (08/17/24) Service Categories #2: Wound Vac (04/19/24) Ambulatory devices needed: Walker, Prosthesis lower extremity (08/13/24) ? Medications Started None Medications Discontinued None Doses Changed None Allergies Allergies ?(Active and Proposed Allergies Only) Keflex? (Severity: Unknown severity, Onset: Unknown) ?Reactions: muscles locked up, could not move metFORMIN? (Severity: Unknown severity, Onset: Unknown) ?Reactions: Cefalexin, GI upset ?Comments: nausea/vomiting ? PCP Follow-Up/Heads-Up Follow up with PCP in one week Future Appointments Tuesday 7:15 AM EST ?? With: Lio VANN, Alyse Guerrero Where: [facility] [address] [place] [address]- Status: Pending Tuesday 10:40 AM EST ?? 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 status postdebridement 01/2024 managed with 6 weeks of vancomycin and Augmentinwith recurrence in 03/2024 requiring additional debridement and creation of a diverting colostomy with slow to heal wound, and admission 06/21?07/03/24 with GBS bacteremia, a right diabetic foot infection with R2 osteomyelitis status post R2 ray amputation 06/22/24 and then completion TMA 06/29/24 without concern for residual osteomyelitis (wound cultures from [facility] and then OR cultures with GBS, Citrobacter braakii, Pseudomonas, MRSA, Staph haemolyticus, and Ele albicans) ultimately managed with cefepime and vancomycin presented to [facility] for worsening right hand infection despite treatment with doxycycline outpatient and noted to have worsening cellulitis of right hand. hand surgery was consulted who performed I&D on 08/12 and 08/14 for removal of devitalized skin and fat. Patient had a follow up ultrasound of right hand which showed no further fluid collection. Due to non-availabilityof OR cultures ID was consulted for assistance with antibiotics on dsicharge who felt that as patient had good source control does not need further antibiotics at this point in time and the last doseof vancomycin should cover for at least 5 days based on vanc random levels. Patient was also seen by vascular surgery team who removed stevie from the right TMA with further removal of stevie in the outpatient. patient will need to follow up with PCP in one week as well as hand surgery(scheduled)and vascular surgery in the clinic. He was hemodynamically stable at the time of discharge. ?? Cellulitis of hand, right (L03.113): -->improved s/p I&D at [facility] 08/07 and few days PO doxycycline Clinically improved, although I and D was performed, cultures were not sent. Consulted ID appreciate recommendations, seems like good source control was achieved with no further evidence of fluid collection on ultrasound Per pharmacy, based on current creatinine clearance, his last vancomycin dose should last for 5 days PLAN - Stop all antibiotics --Elevate RUE --Tylenol PRN mild pain, oxycodone 5 mg PO q8H PRN moderate pain Per hand surgery - BID dressing changes with WTD Vashe - BID irrigation with warm soapy water (can wash with running water and soap) - Follow up with PCP in one week - Follow up with hand surgery(scheduled) ?? ESRD (end stage renal disease) (N18.6): Appreciate renal RTANE recommendations On PD nightly at home Appreciate renal recommendations --Avoid nephrotoxins and renally adjust meds as necessary ? Diabetes mellitus (E11.9): - Continue home insulin regimen ? HTN (hypertension) (I10): -- Continue carvedilol 6.25 mg p.o. twice daily ?? Depression (F32.A): --Continue sertraline ?? HLD (hyperlipidemia) (E78.5): --Continue statin ?? Objective Assessment and Plan ? Vital Signs?? Temperature: 97.5 DegF (08/17/24 14:08:00) Temperature Route: Oral (08/17/24 14:08:00) Pulse Rate: 77 bpm (08/17/24 14:08:00) Respiratory Rate: 17 br/min (08/17/24 14:08:00) Systolic Blood Pressure: 126 mm Hg (08/17/24 14:08:00) Diastolic Blood Pressure:??88 mm Hg??High (08/17/24 14:08:00) Blood pressure sites: Arm, right (08/17/24 14:08:00) Mean Arterial Pressure: 101 mm Hg (08/17/24 14:08:00) Pulse Pressure: 38 mm Hg (08/17/24 14:08:00) Oxygen Saturation: 100 % (08/17/24 14:08:00) Mode of Delivery (Oxygen): Room air (08/17/24 14:08:00) Early Warning Score: 3 (08/17/24 14:11:27) ? . Physical Exam Pleasant male, not in acute distress Breathing comfortably on RA, CTA in all lung mancera S1, S2, no M/R/G Abdomen soft, non tender No peripheral edema ?? Consultants Hand surgery, ID Pending Results No Pending Results Patient Education Titles WebMD Ignite Patient Education - Diabetes and Kidney Disease?? Follow-Up Appointments Added Follow Up ?Time Frame ?Comments Sebastian CASTRO , Shereen Banerjee?Within one week Patient Instructions You were admitted to the hospital after concerns of worsening right hand infection after you had a recent incision and drainage procedure at [facility].?? On admission you were seen by hand surgery team who performed incision and drainage on 08/12 as well as 08/14 for removal of devitalized skin an d fat.?? We treated you with IV antibiotics while you were in the hospital.?? Unfortunately cultures were not taken in the OR for which reason we consulted ID to help with your antibiotic regimen on discharge.?? As the hand surgery team feels that you had good source control with ultrasound of yourhand showing no further fluid collection, the infectious disease team is okay discharging you without any further antibiotics.?? The vancomycin that you are getting in the hospital she likely stay inyour system for 5 days as it is cleared by her kidneys slowly.?? You were also followed by the renal team as you are getting your peritoneal dialysis during this admission.?? For your recent??right??t ransmetatarsal amputation, the vascular surgeons??saw you??and removed??most of your stevie??leading to behind??and recommended follow-up in the clinic??for their removal. Plan -Continue twice daily dressing changes with wet-to-dry Vashe for your right hand -Also perform twice daily irrigation with warm soapy water(can wash with running water and soap) -Hand surgery team has set up an outpatient follow-up with you, for now continue with the dressing changes until seen by them. - Follow up with vascular surgery team to remove rest of your stevie - I have also prescribed oxycodone 5 mg every eight hours as??needed for severe pain for 5 days. Try to avoid using the this pain medication unless severe??pain as it can worsen constipation. Post Discharge Care Discharge ?08/17/24 15:58:00 EST ?Order Comment:?? Discharge Prescriptions ?ePrescribed, 08/17/24 15:58:00 EST ?Order Comment:?? Home Health Face to Face *Denotes mandatory mancera ?? *I certify that this patient is under my care and that I or an allowed non- physician working with me had a face to face encounter with the patient on this date:??08/17/2024 16:25 ?? *The encounter with the patient was in whole, or in part, for the following medical condition, which is the primary diagnosis(es) for home health care:??Abscess of right hand (L02.511) ESRD on peritoneal dialysis (N18.6) Diabetes mellitus with end stage renal disease (E11.22) ?? *Select the indications for the discipline/s that are being arranged for this patient. Nursing (select all that apply): [_] None [_X] Medication management (reconciliation, teaching)?? [X_] Chronic disease management?? [X_] Wound care and treatment?? [X_] Home safety evaluation [_] Administer SQ/IM/IV medications?? [_] Cath care?? [_] Drain care?? [_] Trach or GT care?? Other _ Occupation Therapy (select all that apply): [_] None [_] ADL Management [_] Fall prevention training [_] Energy conservation [_] Cognitive training Other _ Physical Therapy (select all that apply): [_] None [X_] Functional mobility training [X_] Home exercise program to strengthen [_X] Increase ROM?? [X_] Falls prevention training [X_] Home maintenance program for chronic disease Other _ Speech Therapy (select all that apply): [_] None [_] Swallow evaluation and training [_] Speech and language training [_] Cognitive training to process, organize, and/or recall information Other _ ? *Homebound due to (select all that apply): [_] Inability to leave home without assistance/supervision [_] Inability to ambulate without assistance [_] Pain [_] Decreased strength and endurance [_] Unsteady gait [_] Severe SOB and fatigue [_] Impaired transfers [_] Inability to negotiate stairs [_] Limited weight bearing [_] Mental status change? *Physician Signature: _Wily Dow MD ?? *By signing this, I certify that I have personally evaluated the patient and agree with the findings and recommendations as documented above. ? Results Discharge Labs BACTERIOLOGY Blood Culture Results Final report ()?? 08/11/2024 12:44 Blood Culture Specimen Source BLOOD ()?? 08/11/2024 12:44 Blood Culture Isolate 1 Comment ()?? 08/11/2024 12:44 Blood Cult 2 Results Final report ()?? 08/11/2024 13:06 Blood Culture 2 Specimen Source BLOOD ()?? 08/11/2024 13:06 Blood Culture 2 Isolate 1 Comment ()?? 08/11/2024 13:06 ?? BLOOD COUNT & DIFF WBC 10.5 k/mm3 ()?? 08/17/2024 00:15 RBC 3.47 m/mm3 (Low)?? 08/17/2024 00:15 Hgb 9.8 Gm/dL (Low)?? 08/17/2024 00:15 Hct 31.3 % (Low)?? 08/17/2024 00:15 MCV 90.2 femtoliters ()?? 08/17/2024 00:15 MCH 28.2 pg ()?? 08/17/2024 00:15 MCHC 31.3 Gm/dL (Low)?? 08/17/2024 00:15 Platelet Count 251 k/mm3 ()?? 08/17/2024 00:15 RDW-SD 52.4 femtoliters (High)?? 08/17/2024 00:15 MPV 9.9 femtoliters ()?? 08/17/2024 00:15 Nucleated RBC (Automated) 0.0 #/100 WBC'S ()?? 08/17/2024 00:15 Abs. NRBC 0.0 k/mm3 ()?? 08/17/2024 00:15 Abs. Neut 5.9 k/mm3 ()?? 08/16/2024 06:33 Abs. Lymph 1.9 k/mm3 ()?? 08/16/2024 06:33 Abs. Billings 0.6 k/mm3 ()?? 08/16/2024 06:33 Abs. Eo 0.2 k/mm3 ()?? 08/16/2024 06:33 Abs. Baso 0.0 k/mm3 ()?? 08/16/2024 06:33 Neut % 67.4 % ()?? 08/16/2024 06:33 Lymph % 22.0 % ()?? 08/16/2024 06:33 Billings % 7.1 % ()?? 08/16/2024 06:33 Eos % 2.0 % ()?? 08/16/2024 06:33 Baso % 0.5 % ()?? 08/16/2024 06:33 Imm Gran 1.0 % ()?? 08/16/2024 06:33 Abs. Imm Gran 0.1 k/mm3 ()?? 08/16/2024 06:33 ?? CHEM GENERAL Sodium 134 mmol/L ()?? 08/17/2024 00:15 Potassium 4.4 mmol/L ()?? 08/17/2024 00:15 Chloride 100 mmol/L ()?? 08/17/2024 00:15 Bicarbonate Level 22 mmol/L ()?? 08/17/2024 00:15 Anion Gap 12 mmol/L ()?? 08/17/2024 00:15 Glucose Level 222 mg/dL (High)?? 08/17/2024 00:15 Glucose, POC 159 mg/dL (High)?? 08/17/2024 11:06 BUN 51 mg/dL (High)?? 08/17/2024 00:15 Creatinine-Blood 5.31 mg/dL (High)?? 08/17/2024 00:15 Estimated GFR Creatinine 12 ML/MIN/1.73 M2 ()?? 08/17/2024 00:15 Calcium 8.9 mg/dL ()?? 08/17/2024 00:15 Magnesium 1.8 mg/dL ()?? 08/16/2024 06:33 Lactate 0.7 mmol/L ()?? 08/11/2024 12:45 C-Reactive Protein 5.0 mg/dL (High)?? 08/12/2024 02:02 ?? TOXICOLOGY/TDM Vancomycin Level, Random 24.0 mg/L ()?? 08/16/2024 10:13 Vancomycin Level, Trough 24.6 mg/L (High)?? 08/16/2024 06:33 ?? URINE OTHER Est Creatinine Clearance 16.28 mL/min ()?? 08/17/2024 02:03 ? Microbiology ?? Blood Culture 2 Results?? Completed?? Source: Blood Body Site: ?? Collected Dt/Tm: 08/11/2024 13:06 Last Updated Dt/Tm: 08/13/2024 08:09 ?? Blood Culture?? Completed?? Source: Blood Body Site: ?? Collected Dt/Tm: 08/11/2024 12:45 Last Updated Dt/Tm: 08/13/2024 08:08 ?? Blood Culture #2?? Completed?? Source: Blood Body Site: ?? Collected Dt/Tm: 08/11/2024 12:45 Last Updated Dt/Tm: 08/13/2024 08:08 ?? Blood Culture Result?? Completed?? Source: Blood Body Site: ?? Collected Dt/Tm: 08/11/2024 12:44 Last Updated Dt/Tm: 08/13/2024 08:09 ? 70??minutes spent on discharge * Slick BULLARDAgnes: PERFORM, SIGN, VERIFY Event Display: Case Management Discharge Plan Authored Date: [id number] Patient: MOUSTAPHA MEDINA Age: 59 years Sex: Male : 1965 Associated Diagnoses: None Author: Agnes Kruger RN Discharge Plan Case Management Discharge Plan : Case Management Discharge Plan Data 08/17/2024 13:25 EST Discharge Level of Care at Discharge Homehealth/VNA Discharge VNA/Hospice/Home Care [facility] [phone] Name of Agency #1 [facility] Agency Client Technologies Specialist #1 Intake Service Categories #1 Long Term Service Comments #1 You will resume services with [facility]. We have updated them of your discharge. If you do not hear from them 24-48 hours after discharge please call them at [phone]. * Kenneth BULLARD, Charley: PERFORM Event Display: Patient Education/Instruction Authored Date: [id number] Inpatient Adult Discharge Instructions. [place] [id number] Name: MOUSTAPHA MEDINA : 1965?? Visit: 08/11/2024 14:58?? Current Date: 08/17/2024 16:03 ?? Account: [id number]?? Inpatient Adult Discharge Instructions We would like [...] and their families. Surveys are administered by [employer] ?? If further treatment with your primary care physician or another doctor is recommended, it is important for you to keep the appointment. Call your primary care physician or return to the Emergency Department immediately if your condition worsens, fails to improve, or new symptoms develop. If you need to find a doctor, you can call [facility] for a referral at [phone] or toll free at [phone] or log in to [email or web address].. ?? [facility], in keeping with [facility] guidance, no longer requires face masks [...] medical provider or home test kit. ?? You can view and manage your care through the patient portal or by using a health care lazarus of your choosing. [employer] is a website that allows you to securely view your medical information including your hospital discharge summary, office visit summaries, medications and follow-up visits. You can also request appointments, renew medications, and request access to your medical information using a health care lazarus of your choosing, or just ask a question. You can enroll at [email or web address] or register during your next office visit. You have been discharged from [facility], Patient Care Unit: W3??. If you have any questions regarding these instructions, including results of studies pending, afteryou leave, please call us and we will be happy to assist you 17/01. [facility] Your Care Team Attending Physician Wily Dow MD?? Consulting Providers Wily Dow MD?? Discharging Providers Wily Dow MD Reason for Your Visit cellulitis abscess hand?? Your Diagnosis Abscess of right hand ESRD on peritoneal dialysis Diabetes mellitus with end stage renal disease Tests Performed Below is a partial list of the tests performed during your hospitalization. You may have had other tests and procedures not included in this list. Please discuss all test results with your provider. Basic Metabolic Panel Blood Culture Blood Culture #2 Blood Culture 2 Results Blood Culture Result BUN CBC CBC w/ Differential Creatinine CRP Electrolytes GLUCOSE POC Lactate Level Magnesium Level Vancomycin Random Vancomycin Trough US Extremity Non-Vascular Right Limited BUN?? Basic Metabolic Panel?? Blood Culture?? Blood Culture #2?? Blood Culture 2 Results?? Blood Culture Result?? C Reactive Protein (CRP)?? CBC?? CBC w/ Differential?? Creatinine?? Electrolytes?? Glucose POC?? Lactic Acid Level (Lactate Level)?? Magnesium Level?? US Extremity Non-Vascular Right Limited?? Vancomycin Random?? Vancomycin Trough?? Primary Care Provider Sebastian CASTRO , Shereen Banerjee? Advance Directive Health Care Proxy on File Yes - Health Care Proxy Discharge Vitals Temperature: 97.5 DegF Height: 180 cm Pulse Rate: 77 bpm Weight: 113.9 kg Respiratory Rate: 17 br/min Body Mass Index:??35.15 kg/m2??Critical Systolic Blood Pressure: 126 mm Hg Body surface area: 2.39 Diastolic Blood Pressure:??88 mm Hg??High ?? Oxygen Saturation: 100 % ?? Studies Pending All studies ordered during this hospital stay have been completed unless listed below. Please discuss all pending results with your provider listed above in these instructions. ?? No incomplete studies found?? What to do next Instructions From Your Doctor You were admitted to the hospital after concerns of worsening right hand infection after you had a recent incision and drainage procedure at [facility].?? On admission you were seen by hand surgery team who performed incision and drainage on 08/12 as well as 08/14 for removal of devitalized skin an d fat.?? We treated you with IV antibiotics while you were in the hospital.?? Unfortunately cultures were not taken in the OR for which reason we consulted ID to help with your antibiotic regimen on discharge.?? As the hand surgery team feels that you had good source control with ultrasound of yourhand showing no further fluid collection, the infectious disease team is okay discharging you without any further antibiotics.?? The vancomycin that you are getting in the hospital she likely stay inur system for 5 days as it is cleared by her kidneys slowly.?? You were also followed by the renal team as you are getting your peritoneal dialysis during this admission.?? For your recent??right??t ransmetatarsal amputation, the vascular surgeons??saw you??and removed??most of your stevie??leading to behind??and recommended follow-up in the clinic??for their removal. Plan -Continue twice daily dressing changes with wet-to-dry Vashe for your right hand -Also perform twice daily irrigation with warm soapy water(can wash with running water and soap) -Hand surgery team has set up an outpatient follow-up with you, for now continue with the dressing changes until seen by them. - Follow up with vascular surgery team to remove rest of your stevie - I have also prescribed oxycodone 5 mg every eight hours as??needed for severe pain for 5 days. Try to avoid using the this pain medication unless severe??pain as it can worsen constipation. ?? Orders? 08/17/24 15:58:00 EST?? Prescriptions??, ??08/17/24 15:58:00 EST?? Scheduled Follow-Up Appointments Tuesday 7:15 AM EST ?? With: Lio VANN, Alyse Guerrero Where: [facility] [address] [address]- Status: Pending Tuesday 10:40 AM EST ?? With: Homero CASTRO, Pietro Anderson Where: [facility] Plastic Surgery [address] [place] [id number]- Status: Pending You Need to Schedule the Following Appointments Follow Up with??Sebastian CASTRO , Shereen Banerjee When:??Within Within one week Where: [address] [place] [address]- Discharge Medications MOUSTAPHA MEDINA :1965 Visit Date:08/11/2024 Medications: Please continue your medications until treatment is completed or stopped by your provider. Medications not listed below should be discontinued. Discuss any questions related to medications with your provider. What How Much When Instructions Next Dose New Oxycodone (oxyCODONE 5 mg oral tablet) 5 Milligram Oral Every 8 hours as needed for Pain , Moderate Duration: 5 [facility] as prescribed Unchanged Allopurinol (allopurinol 100 mg oral tablet) 1 tab(s) Oral Daily 9 am Unchanged Aspirin (aspirin 81 mg oral delayed release tablet) 81 Milligram Oral Daily Duration: 30 Days 9 am Unchanged Atorvastatin (atorvastatin 10 mg oral tablet) 1 tab(s) Oral Daily at Bedtime 9 pm Unchanged Benzonatate (benzonatate 100 mg oral capsule) 1 capsule Oral 3 times a day 6 pm Unchanged Calcitriol (calcitriol 0.25 mcg oral capsule) 0.5 Microgram Oral Every week Duration: 30 Days as prescribed Unchanged Carvedilol (carvedilol 6.25 mg oral tablet) 1 tab(s) Oral Twice a day Duration: 30 Days 6 pm Unchanged Collagenase Topical (Santyl 250 u/ gm ointment) 1 lazarus Topically Daily as prescribed Unchanged Durable Medical Equipment (XL Brava Barrier Strips 78529) See instructions use as needed for ostomy maintaince. Dx colostomy Z93.3 ?? Unchanged Furosemide 80 Milligram Daily 9 am Unchanged Gabapentin (gabapentin 300 mg oral capsule) 1 capsule Oral Daily at Bedtime 9 pm Unchanged Insulin Glargine (insulin glargine 100 units/ mL subcutaneous solution) 25 unit(s) Subcutaneous Injection Daily Duration: 30 Days tomorrow Unchanged Insulin Lispro (insulin lispro 100 u/ [...] 400 << Sliding Scale Comments >> ?? as prescribed Unchanged Insulin NPH (insulin isophane human recombinant 100 u/ ml subcutaneous injection) 34 unit(s) Subcutaneous Injection Daily at Bedtime Duration: 30 Days ??9 pm Unchanged Midodrine (midodrine 10 mg oral tablet) 1 tab(s) Oral Every 12 hours as needed for Blood Pressure 6 pm Unchanged Miscellaneous Rx (DEXCOM G7 SENSOR) USE 1 SENSOR EVERY 10 DAYS. ?? Unchanged Omeprazole (omeprazole 40 mg oral enteric coated capsule) 1 capsule Oral Daily tomorrow Unchanged Sertraline (sertraline 50 mg oral tablet) 1 tab(s) Oral Daily tomorrow Unchanged Sevelamer (sevelamer carbonate 800 mg oral tablet) 2 tab(s) Oral 3 times a day with meals Duration: 30 Days as prescribed Unchanged Tamsulosin (tamsulosin 0.4 mg oral capsule) 1 capsule Oral Daily at Bedtime Duration: 30 Days 9 pm Pharm[facility] Information [facility]: [address] [place], [place] [id number] [phone] ?? What When Comments Stop Taking Doxycycline Stop Taking Doxycycline Prescription Given During Visit Oxycodone (oxyCODONE 5 mg oral tablet) - 5 mg, By Mouth, Every 8 hours, # 15 tablet, 0 Refills, [facility] [place] [phone]?? Laboratory Results Below is a partial list of the most recent Laboratory test results done prior to this discharge. You may have had other tests and procedures not included in this list. Please discuss all test resultswith your provider. Est Creatinine Clearance - 16.28 mL/min (08/17/2024) Basic Metabolic Panel (08/17/2024) ???Sodium - 134 mmol/L???Potassium - 4.4 mmol/L???Chloride - 100 mmol/L???Bicarbonate Level - 22 mmol/L???Anion Gap - 12 mmol/L???Glucose Level - 222 mg/dL???BUN - 51 mg/dL???Creatinine-Blood - 5.31 mg/dL???Estimated GFR Creatinine - 12 ML/MIN/1.73 M2???Calcium - 8.9 mg/dL Blood Culture (08/11/2024) ???Blood Culture Results - Final report???Blood Culture Specimen Source - BLOOD Blood Culture #2 (08/11/2024) ???Blood Cult 2 Results - Final report???Blood Culture 2 Specimen Source - BLOOD Blood Culture 2 Results (08/11/2024) ???Blood Culture 2 Isolate 1 - Comment Blood Culture Result (08/11/2024) ???Blood Culture Isolate 1 - Comment BUN (08/15/2024) ???BUN - 46 mg/dL CBC (08/17/2024) ???WBC - 10.5 k/mm3???RBC - 3.47 m/mm3???Hgb - 9.8 Gm/dL???Hct - 31.3 %???MCV - 90.2 femtoliters???MCH - 28.2 pg???MCHC - 31.3 Gm/dL???Platelet Count - 251 k/mm3???RDW-SD - 52.4 femtoliters???MPV - 9.9 femtoliters???Nucleated RBC (Automated) - 0.0 #/100 WBC'S???Abs. NRBC - 0.0 k/mm3 CBC w/ Differential (08/16/2024) ???WBC - 8.7 k/mm3???RBC - 3.70 m/mm3???Hgb - 10.7 Gm/dL???Hct - 33.7 %???MCV - 91.1 femtoliters???MCH - 28.9 pg???MCHC - 31.8 Gm/dL???Platelet Count - 251 k/mm3???RDW-SD - 52.6 femtoliters???MPV - 9.6 femtoliters???Nucleated RBC (Automated) - 0.0 #/100 WBC'S???Abs. NRBC - 0.0 k/mm3???Abs. Neut - 5.9 k/mm3???Abs. Lymph - 1.9 k/mm3???Abs. Billings - 0.6 k/mm3???Abs. Eo - 0.2 k/mm3???Abs. Baso - 0.0 k/mm3???Neut % - 67.4 %???Lymph % - 22.0 %???Billings % - 7.1 %???Eos % - 2.0 %???Baso % - 0.5 %???Imm Gran - 1.0 %???Abs. Imm Gran - 0.1 k/mm3 Creatinine (08/15/2024) ???Creatinine-Blood - 5.17 mg/dL???Estimated GFR Creatinine - 12 ML/MIN/1.73 M2 CRP (08/12/2024) ???C-Reactive Protein - 5.0 mg/dL Electrolytes (08/15/2024) ???Sodium - 136 mmol/L???Potassium - 4.2 mmol/L???Chloride - 102 mmol/L???Bicarbonate Level - 21 mmol/L???Anion Gap - 13 mmol/L GLUCOSE POC (08/17/2024) ???Glucose, POC - 159 mg/dL Lactate Level (08/11/2024) ???Lactate - 0.7 mmol/L Magnesium Level (08/16/2024) ???Magnesium - 1.8 mg/dL Vancomycin Random (08/16/2024) ???Vancomycin Level, Random - 24.0 mg/L Vancomycin Trough (08/16/2024) ???Vancomycin Level, Trough - 24.6 mg/L You will be contacted within 72 hours with your results. Allergies (NKA means No Known Allergies) Keflex??(muscles locked up, could not move) metFORMIN??(Cefalexin, GI upset) Problems Active Problems??(21) Chronic kidney disease-mineral and bone disorder?? CKD (chronic kidney disease) stage V requiring chronic dialysis?? Diabetes?? Diabetic neuropathy?? Diabetic retinopathy?? ED (erectile dysfunction)?? GERD (gastroesophageal reflux disease)?? Glaucoma?? HLD (hyperlipidemia)?? HTN (hypertension)?? Hypertension?? Insulin dependent type 2 diabetes mellitus?? Multinodular goiter?? Nephrolithiasis?? Nocturnal hypoxia?? CECIL (obstructive sleep apnea)?? PAD (peripheral artery disease)?? Peritoneal dialysis status?? Prostatic hypertrophy?? Severe obesity (BMI 35.0-39.9) with comorbidity?? Status post below-knee amputation of left lower extremity?? Education Materials Below is the list of Educational Leaflet Providered with your Discharge Instructions. WebMD Ignite Patient Education - Diabetes and Kidney Disease?? Valuables and Belongings I fully understand and agree that [facility] accepts no responsibility for all my personal [...] patient Date for Pt to Sign Valuables/Belongings: 08/12/24 20:31:00 ?? Other Discharge Information ? Case Management Discharge Plan?? Discharge Plan?? Discharge Agency Information?? Discharge Level of Care at Discharge: Homehealth/VNA Name of Agency #1: [facility] Discharge VNA/Hospice/Home Care: [facility] [phone] Agency Client Technologies Specialist #1: Intake ?? Service Categories #1: Long Term ?? Service Comments #1: You will resume services with [facility]. We have updated them of your discharge. If you do not hear from them 24-48 hours after discharge please call them at [phone]. ?? Pulmonary Rehab Status?? Pulmonary Rehab Discharge Status?? Respiratory Rate: 17 br/min ? Common Emergency Awareness Tips IS [...] are strongly encouraged to quit. Please call [facility] Link at [phone] or [phone] ([phone]) or log in to [email or web address] for referrals to smoking cessation programs. ?? 514 Suicide & Crisis Lifeline is available 17/01 if you or someone you know needs to find a reason to keep living. By calling 253 you'll be connected to a skilled, trained counselor at a crisis center in your area. INPATIENT DISCHARGE INSTRUCTIONS SIGNATURE PAGE MOUSTAPHA MEDINA Location:[facility] Registration Date and Time:08/11/2024 14:58 EST Primary Care Physician: Sebastian CASTRO , Shereen Banerjee, Attending Physician: Wily Dow MD, MOUSTAPHA SANTOS, have received the above patient education materials/instructions and have verbalized understanding. If ambulance or transport services are being used I further acknowledge being given a choice of service. ?? If you need to contact me, please call me at this number: . Patient/Sample Box Maker Name: Patient/Sample Box Maker Signature: Relationship to Patient: Witness Name/Signature: Date: * Charley Cooper RN: PERFORM Event Display: Patient Education Leaflets Authored Date: [id number] Diabetes and Kidney Disease ?? 35579 Diabetes and Kidney Disease Diabetes makes your body less able to use the foods you eat for fuel. As a result, sugar (glucose) builds up in the blood. Over time, having too much glucose in your blood can harm your blood vesselsand kidneys. Diabetes is the most common cause for needing dialysis or a kidney transplant.??But by controlling diabetes, you can stay at a healthy blood glucose level. And you can slow or prevent kidney damage. Who's at risk? Some people have diabetes and kidney disease at higher rates. This includes people with any of these kinds of cultural heritage: ??? Black South Korean ? and Latin Americans ?? Important yearly testing People with diabetes need their kidney function measured at least once a year. Your provider will track how much protein your kidneys release into your pee. This is a sign of how diabetes affects your kidneys. One or two times a year, you will need a blood test. This is done to see how your kidneysprocess other substances. Don???t skip these important tests.? Follow your food plan To get the most energy from the foods you eat and feel your best, you may have to follow a food plan. Work closely with your healthcare team. They can help you make a food plan that's right for you. You may need to: ??? Eat less protein. ??? Drink less fluid. ??? Limit salt (sodium) intake. ??? Eat foods that are low in phosphorus and potassium. ??? Not take or change the dose of medicines that affect or are processed by the kidneys. If you need help with changes to what you eat and drink, talk with your healthcare provider. Ask leidy referred to a registered dietitian. This person can help you make and manage those changes. ?? Take insulin or diabetes medicine as directed Insulin is a hormone. It helps your body use glucose. You may need to inject insulin. This is to increase your body???s supply. Or you may take medicine to help your body release more insulin or use it better. The stage of kidney disease can affect the amount of insulin your body needs. Your insulin or othermedicine doses may be changed. Talk with your provider if your blood sugar level is often too low. Closely watch your blood sugar with a meter as directed. ?? Blood pressure medicine can help There are 3 types of blood pressure medicines that help people with diabetes and high blood pressure reduce their risk of kidney disease. They can also help prevent kidney disease getting worse. These medicines are: ??? Angiotensin-converting enzyme (JANET) inhibitors ??? Angiotensin receptor blockers (ARBs) ??? Sodium-glucose co-transporter 2 (SGLT2) inhibitors These medicines also work for people with diabetes who don't have high blood pressure. ?? Other ways to help your health You can help slow kidney disease by: ??? Quitting smoking as soon as possible, if you smoke ??? Controlling high blood pressure ??? Limiting alcohol ??? Staying at a healthy body weight ??? Getting regular physical activity ?? Stay active Exercise helps the body use glucose. For best results: ??? Talk with your provider before starting a fitness program. ??? Ask your provider what activities you should do. Ask how often you should exercise, and for how long. ??? Eat 1 to 2 hours before you exercise. Check your blood sugar right before you exercise. This is to see if it's safe to exercise at that time. ??? Keep snacks nearby. Thesecan help prevent low blood sugar (hypoglycemia). ??? Always wear a medical alert necklace, bracelet, or tag. It should say that you have diabetes. And it should list other health conditions as needed. ?? Last Reviewed Date: 2021 ?? 5911-2506 [employer]. All rights reserved. This information is not intended as a substitute for professional medical care. Always follow your healthcare professional's instructions. ?? * Event Display: Provider Clarification Note Please click on pdf link to open report Patient Care team information Care Team Personnel Name: Tomy Grady RN Position: [facility] RN Member Role: Primary Care Nurse Name: Pita Arriaza RN Position: [facility] RN Member Role: Primary Care Nurse Name: Tiffanie Cantu RN Position: [facility] RN Member Role: Primary Care Nurse Name: Ponce Wilkes RN Position: [facility] RN Member Role: Primary Care Nurse Name: Lanette Yeh RN Position: [facility] RN Member Role: Primary Care Nurse Name: Nadja Helms Position: [facility] Outreach Member Role: Lifetime Consulting Physician Name: Veronica Garibay Position: [facility] Associate Professional Member Role: Lifetime Consulting Provider Address: [address] [place] [address] [address] [facility] [address] Telecom: Name: Elizabeth Garcia RN Position: [facility] RN Member Role: Primary Care Nurse Name: Judson Alarcon RN Position: [facility] RN Member Role: Primary Care Nurse Name: Ira Harrsi RN Position: [facility] RN Member Role: Primary Care Nurse Name: Shereen Cortes MD Position: Reference Physician Member Role: PCP Address: [address] [place], [place] - [place] Telecom: Name: Willa Ruiz MD Position: [facility] Renal MD Member Role: Lifetime Consulting Physician Address: [address] [facility] [place], [place] - [place] Telecom: Name: Lily Hooper RN Position: [facility] RN Member Role: Lifetime Consulting Physician Name: Dwayne Rollins MD Position: [facility] Renal MD Member Role: Lifetime Consulting Physician Address: [address] [facility] [facility] [place] [address]- [place] Telecom: Name: Kylie Rivera RN Position: [facility] RN Member Role: Primary Care Nurse Name: Tiara Coleman Position: [facility] AMB Nurse Member Role: Lifetime Consulting Physician Name: Donte Clark III, RN Position: [facility] RN Member Role: Primary Care Nurse Name: Meg Willis RN Position: [facility] RN Member Role: Primary Care Nurse Name: Tova Vidales RN Position: [facility] RN Member Role: Primary Care Nurse Name: Nathan Dumont RN Position: [facility] RN Member Role: Primary Care Nurse Name: Chelo Marie RN Position: [facility] RN Member Role: Primary Care Nurse Name: Soto Amador RN Position: [facility] RN Member Role: Primary Care Nurse Name: Blanche Garcia RN Position: [facility] RN Member Role: Primary Care Nurse Name: Mary Conti RN Position: [facility] Outreach Member Role: Lifetime Consulting Physician Name: Rafael Shah MD Position: [facility] Outreach Member Role: Lifetime Consulting Physician Address: [address] [facility] [place] [address]- [place] Telecom: Name: Cherie Alcantar RN Position: [facility] RN Member Role: Primary Care Nurse Name: Billie Goddard RN Position: [facility] RN Member Role: Primary Care Nurse Name: Flower Gustafson RN Position: S RN Member Role: Primary Care Nurse Name: Cathi Mancini Position: S RN Member Role: Primary Care Nurse Name: Pietro Miranda MD Position: [facility] Renal MD Member Role: Lifetime Consulting Physician Address: [address] [facility] [address] Telecom: Name: Jessi Armenta RN Position: S RN Member Role: Primary Care Nurse Name: Tori Gould RN Position: [facility] RN Member Role: Primary Care Nurse Name: Charley Cooper RN Position: S RN Member Role: Primary Care Nurse Name: Francis Mccann RN Position: [facility] RN Member Role: Primary Care Nurse Care Team Related Persons Name: SHON MEDINA Insurance Providers Guarantor name: MOUSTAPHA CAROL Health Plan Information #: 1 Payer: [employer] Member Number: [id number] Policy Number: NA Group Number: [facility] Health Plan Information #: 2 Payer: [employer] Member Number: [id number] Policy Number: NA Group Number: NA
--- OUTSIDE RECORDS SUMMARY | 2024-09-05 08:08 | XMS_ITS | Continuity of Care Document ---
Author Organization [facility] Address [address] [place] [address]- Care Team Providers Care Wire Basket Maker Name Role Phone Sebastian CASTRO, Shereen Banerjee Primary Care Physician Encounter [facility] Date(s): 08/07/24 - 08/07/[address] [address]- Encounter Diagnosis Abscess of hand(Final) - 08/07/24 Discharge Disposition: A-D/C Home Attending Physician: Lio Sevilla MD Admitting Physician: Lio Sevilla MD Referring Physician: Not on Staff, Referring MD Encounter Type: Disch ES Allergies, Adverse Reactions, Alerts Substance Criticality Severity [...] influenza virus vaccine, inactivated 03/26/16 Jeremiah rded [id number] 12y+ bivalent booster vax 06/14/22 Recorded zoster vaccine, inactivated 10/13/21 Recorded SARS-CoV-2 mRNA (orjgnnm-nrtu-durid) vax 10/13/21 Recorded SARS-CoV-2 (COVID-19) mRNA BNT-162b2 [...] 07/02/24 1:56:00 PM EST,Route to Pharmacy Electronically, [facility], Partial fill upon patient [...] Refills, Maintenance, 07/02/24 1:56:00 PM EST, Capsule, [facility], Partial fill upon patient [...] 12:19:00 PM EDT, Route to Pharmacy Electronically, [facility]/pharmacy #[id number], Partial fill upon patient request if the [...] 0 Refills, Maintenance, 07/03/24 10:20:00 AM EST,Injection, [facility], Partial fill upon patient request if [...] Refills, Maintenance, 07/03/24 10:19:00 AM EST, Injection, [facility], Partial fill upon patient [...] Refills, Maintenance, 07/17/24 10:37:00 AM EST, Ointment, [facility]/pharmacy #[id number], Partial fill upon patient request if [...] Refills, Maintenance, 01/22/23 12:12:00 PM EDT, Tablet, [facility]/pharmacy #[id number], Partial fill upon patient request if [...] 8:45:00 AM EST, Route to Pharmacy Electronically, [facility], Partial fill upon patient request if the prescription is for a schedule II opioid drug., 177.5, cm, 08/20/22 6:57:00 EST, Height, 133.6, kg, 08/13/22 0:23:00 EST, Dry Weight Start Date: 08/20/22 Stop Date: 09/19/22 Status: Ordered Quantity: 30.0 Unit: capsule Repeat number: 1 Problem List Condition Confirmation Course Effective Dates [...] goiter Confirmed Active Diabetic neuropathy Confirmed Active Obese class I Confirmed Active CECIL (obstructive sleep apnea) Confirmed Active PAD (peripheral artery disease) Confirmed Active Diabetic retinopathy Confirmed Active Vital Signs Most recent to oldest [Reference Range]: 1 2 Height 180 cm (08/07/24 12:07 PM) Weight 109 kg (08/07/24 12:07 PM) Oxygen Saturation [94-100 %] 99 % (08/07/24 12:07 PM) 99 % (08/07/24 12:06 PM) Pulse Rate [55-90 bpm] 79 bpm (08/07/24 12:07 PM) 83 bpm (08/07/24 12:06 PM) Blood Pressure [90-138/55-84 mm Hg] 146/ 98mm Hg *H* (08/07/24 12:07 PM) Respiratory Rate [16-30 br/min] 17 br/mi n (08/07/24 12:07 PM) Temperature [96.8-100.4 DegF] 97.9 DegF (08/07/24 12:07 PM) Mode of Delivery (Oxygen) Room air (08/07/24 12:06 PM) Temperature Route Temporal (08/07/24 12:07 PM) Dry Weight 109 kg (08/07/24 12:07 PM) Weight Obtained Via Standing scale (08/07/24 12:07 PM) Social History Social History Type Response Smoking Status Never (less than 100 in lifetime) entered on: 12/15/23 Sex Sex Representation Male (finding) Note * Neelima Bustillo: SIGN, VERIFY, PERFORM Event Display: Patient Education Handout Authored Date: [id number] * Neelima Bustillo: PERFORM Event Display: Patient Education Leaflets Authored Date: [id number] Abscess (Incision and Drainage) ?? [id number] Abscess (Incision and Drainage) An abscess is sometimes called a boil. It happens when bacteria get trapped under the skin and start to grow. Pus forms inside the abscess as the body responds to the bacteria. An abscess can happen from an insect bite, ingrown hair, blocked oil gland, pimple, cyst, or puncture wound. Your health care provider has drained the pus from your abscess. If the abscess pocket was large, your provider may have put in gauze packing. Your provider will need to remove or replace it on your next visit. Antibiotics may have been prescribed if the infection is spreading around the wound. Butyou may not need them to treat a simple abscess. The wound??will take about 1 to 2 weeks to heal, depending on the size of the abscess. Healthy tissue will grow from the bottom and sides of the opening until it seals over. Home care These tips can help your wound heal: ??? The wound may drain for the first 2 days. Cover the wound with a clean dry dressing. Change the??dressing if it becomes soaked with blood or pus. ??? If a gauze packing was placed inside the abscess pocket, you may be told to remove it yourself. You may do this in the shower. Once the packing is removed, you should wash the area in the shower, or clean thearea as directed by your health care provider. Continue to do this until the skin opening has closed. Carefully throw away the packing to prevent spreading any infection. Make sure you wash your hands after changing the packing or cleaning the wound. ??? If you were prescribed antibiotics, take them as directed until they are all gone to be sure the infection has completely cleared. ??? You may use acetaminophen or ibuprofen to control pain, unless another pain medicine was prescribed.??If you have liver disease or ever had a stomach ulcer, talk with your provider before using these medicines. ?? Follow-up care Follow up with your health care provider, or as advised. If a gauze packing was put in your wound, it should be removed in 1 to 2 days, or as directed. Check your wound every day for any signs that the infection is getting worse. ?? When to get medical advice Contact your health care provider or seek medical care right away if you have: ??? Increasing redness or swelling. ??? Red streaks in the skin leading away from the wound. ??? Increasing local pain or swelling. ??? Continued pus draining from the wound 2 days after treatment. ??? A fever of 100.4??F (38??C) or higher, or as directed by your provider. ??? A boil that returns after treatment. ?? Last Reviewed Date: 2024 ?? 8257-3060 [employer]. All rights reserved. This information is not intended as a substitute for professional medical care. Always follow your healthcare professional's instructions. ?? Patient Care team information Care Team Personnel Name: Tomy Grady RN Position: [facility] RN Member Role: Primary Care Nurse Name: Pita Arriaza RN Position: [facility] RN Member Role: Primary Care Nurse Name: Tiffanie Cantu RN Position: [facility] RN Member Role: Primary Care Nurse Name: Ponce Wilkes RN Position: [facility] RN Member Role: Primary Care Nurse Name: Lanette Yeh RN Position: [facility] RN Member Role: Primary Care Nurse Name: Nadja Helms Position: [facility] Outreach Member Role: Lifetime Consulting Physician Name: Veronica Garibay Position: [facility] Associate Professional Member Role: Lifetime Consulting Provider Address: [address] [place] [address] [facility] [address] Telecom: Name: Elizabeth Garcia RN Position: [facility] RN Member Role: Primary Care Nurse Name: Ira Harris RN Position: [facility] RN Member Role: Primary Care Nurse Name: Sebastian CASTRO , Shereen Banerjee Position: Reference Physician Member Role: PCP Address: [address] [place], [place] [address] Telecom: Name: Willa Ruiz MD Position: [facility] Renal MD Member Role: Lifetime Consulting Physician Address: [address] [place] [address] [facility] [address] Telecom: Name: Lily Hooper RN Position: [facility] RN Member Role: Lifetime Consulting Physician Name: Dwayne Rollins MD Position: [facility] Renal MD Member Role: Lifetime Consulting Physician Address: [address] [facility] [place] [address]- [place] Telecom: Name: Kylie Rivera RN Position: [facility] RN Member Role: Primary Care Nurse Name: Tiara Coleman Position: [facility] AMB Nurse Member Role: Lifetime Consulting Physician Name: Donte Clark III, RN Position: [facility] RN Member Role: Primary Care Nurse Name: Meg Willis RN Position: [facility] RN Member Role: Primary Care Nurse Name: Tova Vidales RN Position: [facility] RN Member Role: Primary Care Nurse Name: Nathan Dumont RN Position: [facility] RN Member Role: Primary Care Nurse Name: Chelo Marie RN Position: [facility] RN Member Role: Primary Care Nurse Name: Soto Amador RN Position: [facility] RN Member Role: Primary Care Nurse Name: Mary Conti RN Position: [facility] Outreach Member Role: Lifetime Consulting Physician Name: Rafael Shah MD Position: [facility] Outreach Member Role: Lifetime Consulting Physician Address: [address] [facility] [place] [address]- Telecom: Name: Cherie Alcantar RN Position: [facility] RN Member Role: Primary Care Nurse Name: Billie Goddard RN Position: [facility] RN Member Role: Primary Care Nurse Name: Flower Gustafson RN Position: [facility] RN Member Role: Primary Care Nurse Name: Cathi Mancini Position: [facility] RN Member Role: Primary Care Nurse Name: Pietro Miranda MD Position: [facility] Renal MD Member Role: Lifetime Consulting Physician Address: [address] [facility] [place] [address]- [place] Telecom: Name: Jessi Armenta RN Position: [facility] RN Member Role: Primary Care Nurse Name: Tori Gould RN Position: [facility] RN Member Role: Primary Care Nurse Name: Farncis Mccann RN Position: [facility] RN Member Role: Primary Care Nurse Care Team Related Persons Name: SHON MEDINA Insurance Providers Guarantor name: [facility] Information #: 1 Payer: [facility] Member Number: [id number] Policy Number: NA Group Number: NA [facility] Information #: 2 Payer: [facility] Member Number: [id number] Policy Number: NA Group Number: NA
--- OUTSIDE RECORDS SUMMARY | 2024-09-05 08:08 | XMS_ITS | Continuity of Care Document ---
Author Organization [facility] Address [address] [place] [address] [address] [place] [address]- Care Team Providers Care Remote Sensing Advisor Name Role Phone Sebastian CASTRO, Shereen Banerjee Primary Care Physician Encounter [facility] Date(s): 07/26/24 - 08/25/[address] [place] [address]- Encounter Type: Triage Allergies, Adverse Reactions, Alerts [...] influenza virus vaccine, inactivated 03/26/16 Jeremiah rded [id number] 12y+ bivalent booster vax 06/14/22 Recorded zoster vaccine, inactivated 10/13/21 Recorded SARS-CoV-2 mRNA ([id number]-[id number]) vax 10/13/21 Recorded SARS-CoV-2 (COVID-19) mRNA BNT-162b2 [...] 07/02/24 1:56:00 PM EST,Route to Pharmacy Electronically, [facility], Partial fill upon patient [...] Refills, Maintenance, 07/02/24 1:56:00 PM EST, Capsule, [facility], Partial fill upon patient [...] 12:19:00 PM EDT, Route to Pharmacy Electronically, [facility]/pharmacy #[id number], Partial fill upon patient request if the [...] 0 Refills, Maintenance, 07/03/24 10:20:00 AM EST,Injection, [facility], Partial fill upon patient request if [...] Refills, Maintenance, 07/03/24 10:19:00 AM EST, Injection, [facility], Partial fill upon patient [...] Refills, Maintenance, 07/17/24 10:37:00 AM EST, Ointment, [facility]/pharmacy #[id number], Partial fill upon patient request if [...] Refills, Maintenance, 01/22/23 12:12:00 PM EDT, Tablet, [facility]/pharmacy #[id number], Partial fill upon patient request if [...] 8:45:00 AM EST, Route to Pharmacy Electronically, [facility], Partial fill upon patient request if the prescription is for a schedule II opioid drug., 177.5, cm, 08/20/22 6:57:00 EST, Height, 133.6, kg, 08/13/22 0:23:00 EST, Dry Weight Start Date: 2/24/23 Stop Date: 09/19/22 Status: Ordered Quantity: 30.0 Unit: capsule Repeat number: 1 toe filler s/p right transmetatarsal amputation toe filler s/p right transmetatarsal amputation, See Instructions, # 1 capsule, Refills 0, Tot. Refills 0, Maintenance, right tma toe filler please fit patient, 08/22/24 7:44:00 AM EST, Supply Start Date: 08/22/24 Status: Ordered Quantity: 1.0 Unit: capsule Repeat number: 1 XL Brava Barrier Strips 15078 XL Brava Barrier Strips 29479, See Instructions, # 40 each, Refills 11, [...] Team Personnel Name: Tomy Grady RN Position: [facility] RN Member Role: Primary Care Nurse Name: Pita Arriaza RN Position: [facility] RN Member Role: Primary Care Nurse Name: Tiffanie Cantu RN Position: [facility] RN Member Role: Primary Care Nurse Name: Ponce Wilkes RN Position: [facility] RN Member Role: Primary Care Nurse Name: Lanette Yeh RN Position: [facility] RN Member Role: Primary Care Nurse Name: Nadja Helms Position: [facility] Outreach Member Role: Lifetime Consulting Physician Name: Veronica Garibay Position: [facility] Associate Professional Member Role: Lifetime Consulting Provider Address: [address] [facility] [address] [facility] [place] [place] [address]- Telecom: Name: Elizabeth Garcia RN Position: [facility] RN Member Role: Primary Care Nurse Name: Judson Alarcon RN Position: [facility] RN Member Role: Primary Care Nurse Name: Ira Harris RN Position: [facility] RN Member Role: Primary Care Nurse Name: Sebastian CASTRO , Shereen Banerjee Position: Reference Physician Member Role: PCP Address: [address] [place] [address]- Telecom: Name: Willa Ruiz MD Position: [facility] Renal MD Member Role: Lifetime Consulting Physician Address: [address] [facility] [address] [facility] [place] [address]- Telecom: Name: Lily Hooper RN Position: [facility] RN Member Role: Lifetime Consulting Physician Name: Dwayne Rollins MD Position: [facility] Renal MD Member Role: Lifetime Consulting Physician Address: [address] [facility] [address] [facility] [place] [address]- Telecom: Name: Kylie Rivera RN Position: [facility] RN Member Role: Primary Care Nurse Name: Tiara Coleman Position: [facility] AMB Nurse Member Role: Lifetime Consulting Physician Name: Donte Clark III, RN Position: [facility] RN Member Role: Primary Care Nurse Name: Meg Willis RN Position: [facility] RN Member Role: Primary Care Nurse Name: Tova Vidales RN Position: [facility] RN Member Role: Primary Care Nurse Name: Nathan Dumont RN Position: [facility] ANTHONY RN W/OE and Tasks Member Role: Primary Care Nurse Name: Chelo Marie RN Position: [facility] RN Member Role: Primary Care Nurse Name: Soto Amador RN Position: [facility] RN Member Role: Primary Care Nurse Name: Blanche Garcia RN Position: [facility] RN Member Role: Primary Care Nurse Name: Mary Conti RN Position: S Outreach Member Role: Lifetime Consulting Physician Name: Rafael Shah MD Position: S Outreach Member Role: Lifetime Consulting Physician Address: [address] [facility] [address] Telecom: Name: Cherie Alcantar RN Position: S RN Member Role: Primary Care Nurse Name: Billie Goddard RN Position: S RN Member Role: Primary Care Nurse Name: Flower Gustafson RN Position: S RN Member Role: Primary Care Nurse Name: Cathi Mancini Position: [facility] RN Member Role: Primary Care Nurse Name: Pietro Miranda MD Position: [facility] Renal MD Member Role: Lifetime Consulting Physician Address: [address] [facility] [address] Telecom: Name: Jessi Armenta RN Position: [facility] RN Member Role: Primary Care Nurse Name: Tori Gould RN Position: [facility] RN Member Role: Primary Care Nurse Name: Charley Cooper RN Position: [facility] RN Member Role: Primary Care Nurse Name: Francis Mccann RN Position: [facility] RN Member Role: Primary Care Nurse Care Team Related Persons Name: SHON MEDINA Insurance Providers Guarantor name: PAKO MEDINA Health Plan Information #: 1 Payer: [facility] [employer]I[facility]/[employer] Member Number: NA Policy Number: NA Group Number: NA
--- OUTSIDE RECORDS SUMMARY | 2024-09-05 08:08 | XMS_ITS | Encounter Summary ---
Author Organization [facility] Address [address] [place] [address] Phone Care Team Providers Care Electro Tech Name Role Phone Malou Cortes MD Primary Care Provider [phone] Encounter Details Date Type Department Care Team (Late st Contact Info) Description 12/08/2022 Telephone [facility] [address] [place] [address] Shruti Chi Social History Tobacco Use Types Packs/Day Years [...] as of this encounter Miscellaneous Notes * Telephone Encounter - Shruti Chi - 12/08/2022 3:34 PM EDT Ambreen Clinical Pharmacist for [facility] called regarding this PT's recent medication updates and changes from July, the PT was released from the hospital in July and had some of his medications changed. PT PCP will not fill these new medications, they advised the PT to follow up with our office so Ambreen is calling to find out what can be done for this PT. Ambreen: [phone] documented in this encounter Plan of Treatment Not on file documented as of this encounter Visit Diagnoses Not on filedocumented in this encounter Care Teams Electro Tech Relationship Specialty Start Date End Date Malou Cortes MD [address] [place] [id number] PCP - General 07/07/20 documented as of this encounter
--- OUTSIDE RECORDS SUMMARY | 2024-09-05 08:08 | XMS_ITS | Clinical Summary ---
Author Organization [facility] Address [address] [place] [address] Phone Care Team Providers Care Machine Dyer Name Role Phone Shereen Cortes MD Primary Care Provider Allergies Active Allergy Reactions Criticality Noted Date Comments Cephalexin Nausea And Vomiting Medium 01/05/2021 Unable to move body, chills, fever Medications blood glucose control high,low (FreeStyle Control) solution USE TO TEST BLOOD SUGAR THREE TIMES DAILY (E11.22) Active B complex-vitamin C-folic acid (NEPHROCAPS) 1 mg capsule Take 1 Capsule by mouth daily. Active UNABLE TO FIND USE 4 TIMES A DAY WITH INSULIN Active blood-glucose meter kit 1 Kit by Does not apply route See Admin Instructions. Active blood-glucose meter,continuous (Dexcom G7 Telecommunications Equipment Installer) misc 1 Each by Does not apply route See Admin Instructions. E11.59 To use with Dexcom G7 sensor Active FREESTYLE LANCETS MISC USE TO TEST BLOOD SUGAR THREE TIMES DAILY (E11.22) Active blood sugar diagnostic (FreeStyle Lite Strips) test strip USE TO TEST BLOOD SUGAR THREE TIMES DAILY (E11.39) Active atorvastatin (LIPITOR) 10 mg tablet Take 1 Tablet by mouth daily. Active allopurinoL (ZYLOPRIM) 100 mg tablet Take 100 mg by mouth daily. Active allopurinoL (ZYLOPRIM) 100 mg tablet Take 1 Tablet by mouth daily. Active bumetanide (BUMEX) 1 mg tablet Take 3 Tablets by mouth. Active carvediloL (COREG) 6.25 mg tablet TAKE 1 TAB (6.25 MG) ORALLY EVERY 12 HOURS MUST ADMINISTER WITH A MEAL/FOOD 3 Active cholecalciferol (VITAMIN D-3) 1,250 mcg (50,000 unit) capsule TAKE 1 CAPSULE BY MOUTH EVERY WEEK FOR 3 MONTHS Active gabapentin (NEURONTIN) 300 mg capsule Take 1 Capsule by mouth. Active gabapentin (NEURONTIN) 600 mg tablet Take 0.5 Tablets by mouth 2 times daily. Active hydrocortisone 2.5 % cream PLEASE SEE ATTACHED FOR DETAILED DIRECTIONS Active metoclopramide (REGLAN) 5 mg tablet TAKE 1 TABLET BY MOUTH DAILY FOR NAUSEA/VOMITING Active omeprazole (PriLOSEC) [address] capsule TAKE 1 CAPSULE BY MOUTH EVERY MORNING Active sevelamer carbonate (RENVELA) 800 mg tablet Take 1 Tablet by mouth. Active silver sulfADIAZINE (SILVADENE, SSD) 1 % cream Apply topically to leg ulcer daily Active sodium bicarbonate 650 mg tablet TAKE 2 TABLETS BY MOUTH TWO TIMES A DAY FOR 14 DAYS Active sulfamethoxazole -trimethoprim (BACTRIM DS,SEPTRA DS) 800-160 mg per tablet TAKE 1 TABLET BY MOUTH 2 TIMES A DAY STARTING DAY AFTER SURGERY Active tamsulosin (FLOMAX) 0.4 mg 24 hr capsule Active torsemide (DEMADEX) 20 mg tablet TAKE 2 TABLETS BY MOUTH EVERY DAY Active triamcinolone (KENALOG) 0.1 % lotion APPLY TO RASH TWICE DAILY FOR 3 MONTHS Active blood-glucose sensor (Mirabilis Medica G7 Sensor) device Box = Kit = EA. Use one sensor every 10 days. 3 each 4 Active insulin aspart (NovoLOG Flexpen U-100 Insulin) 100 unit/mL (3 mL) injection pen INJECT INTO THE SKIN 3 TIMES DAILY (BEFORE MEALS). SLIDING SCALE <100: 0 UNITS 100-130: 4 UNITS 131-159: 5 UNITS 160-199: 6 UNITS 200-229: 8 UNITS 230-259: 10 UNITS 260-299: 12 UNITS 300-329: 14 UNITS 330-359: 16 UNITS 400-429: 18 UNITS >429: CALL ME - SUBCUTANEOUS 15 mL 2 4 Active insulin glargine,hum.rec .anlog (Basaglar KwikPen U-100 Insulin) 100 unit/mL (3 mL) injection pen Inject 8-10 Units into the skin every morning. E11.59 Active Active Problems Problem Noted Date Diagnosed Date Acute right-sided low back pain without sciatica 08/31/2023 Overview (04/04/2024): Last Assessment & Plan: History Sara describes about 1 month of right sided low back pain without radiation to the buttock hip or leg. Cannot take anti-inflammatories because he is on a kidney transplant list. An MRI of the lumbar spine from January 2023 shows degenerative changes most significant at L3-3 and L3-4 where there was bilateral lateral recess stenosis. There were findings at L2-3 consistent with his history of discitis. He is neurologically intact. At this point working to get some x-rays of the lumbar spine and he will begin physical therapy. We have given him an appointment to return to our office for follow-up in approximately 6 weeks for repeat evaluation. Open wound of foot, complicated 08/31/2023 Severe obesity 08/31/2023 Diabetes 08/31/2023 ESRD (end stage renal disease) 01/25/2023 Septic discitis of lumbar region 08/11/2021 Overview (04/04/2024): Last Assessment & Plan: Mr. Ruiz is here for his second postop visit since a left L2-3 MIS discectomy on 10/05/2021. He first came to us in follow-up while completing his antibiotics for L2-3 discitis and osteomyelitis. There appeared to be focal disc herniation on the left at the same level and now, postsurgery, the proximal left leg pain has completely resolved. On exam, his incision is well-healed with no signs of infection. Strength is 5/5 including left hip flexion, knee flexion and knee extension (he has a left BKA), gait is steady. He is doing quite well and now walking 15 minutes on the treadmill. We reviewed things that he can do at the gym including using free weights though I recommended not lifting directly overhead. He is welcome to follow-up with us if there are any concerns in the future. Hypertension 08/10/2021 Diabetic retinopathy 01/06/2021 Type 2 diabetes mellitus with eye manifestations 01/06/2021 Diabetic neuropathy 01/06/2021 Diabetic nephropathy 01/06/2021 Osteoarthritis 01/06/2021 Celiac disease 01/06/2021 Chronic kidney disease (CKD), stage III (moderat e) 01/06/2021 Gastroparesis 01/06/2021 Hyperlipidemia 01/06/2021 Multinodular goiter (nontoxic) 01/06/2021 Renal calculi 01/06/2021 Erectile dysfunction 01/06/2021 Inguinal hernia 01/06/2021 Overview (04/04/2024): bilateral Eating disorder 01/05/2021 S/P BKA (below knee amputation), left 01/05/2021 Overview (04/04/2024): 06/28/17, uses prosthetic leg CECIL on CPAP 08/05/2020 Overview (04/04/2024): SMS treatment polysomnogram 09/10/2021. AHI 280; BMI 40. Interpretation: Sleep apnea peers controlled at CPAP pressure of 20. There were periodic leg mid minutes of uncertain clinical significance. Type 2 diabetes mellitus 09/04/2005 Essential hypertension, benign 08/17/2005 Peripheral artery disease 08/17/2005 Gout, unspecified 08/17/2005 Encounters Date Type Department Care Team Description 06/18/2024 4:15 PM EST Office Visit Bariatric Surgery - [address] [address] Carlitos Almendarez MD Diabetic ulcer of right midfoot associated with type 1 diabetes mellitus, unspecified ulcer stage (CMS/HCC) (Primary Dx) from Last 3 Months Immunizations Name Administration Dates Next Due Influenza Quadravalent, MDCK , 0.5ml, preservative free (Flucelvax) 6mo and older 04/16/2021 Influenza trivalent, with preservative (Fluzone; Afluria) 6mo and older 06/14/2022,08/12/2020,05/20/2018,2016,03/26/2016 Tdap Tetanus diptheria acell ular pertussis (Boostrix; Adacel) 7yo and older 11/09/2016 Zoster recombinant (Shingrix ) 19yo and older 10/13/2021 Surgical History Surgery Date Site/Laterality Comments OTHER SURGICAL HISTORY PROCEDURE: HISTORY OTHER; COMMENT: lt foot injury required skin graft and ligation of dorsalis pedis artery OTHER SURGICAL HISTORY PROCEDURE: HISTORY OTHER; COMMENT: rt achilles tear required surgery dr vila OTHER SURGICAL HISTORY 06/28/2017 Left PROCEDURE: HISTORICAL BELOW KNEE AMP ESOPHAGOGASTRODUODENOSCOPY 09/26/2013 PROCEDURE: IA ESOPHAGOGASTRODUODENOSCOPY TRANSORAL DIAGNOSTIC OTHER SURGICAL HISTORY 03/25/2015 PROCEDURE: HISTORY OTHER; COMMENT: thyroid lobectomy OTHER SURGICAL HISTORY 2004 PROCEDURE: HISTORY OTHER; COMMENT: ACL repair OTHER SURGICAL HISTORY 10/05/2021 PROCEDURE: IA LAMNOTMY INCL W/DCMPRSN NRV ROOT 1 INTRSPC LUMBR; COMMENT: Left L2-3 minimally invasive discectomy, Dr. Carmichael OTHER SURGICAL HISTORY 11/11/2022 PROCEDURE: IA I&D BELOW FASCIA FOOT MULTIPLE AREAS OTHER SURGICAL HISTORY 11/11/2022 Right PROCEDURE: IA AMPUTATION METATARSAL W/TOE SINGLE; COMMENT: right, fourth transmetatarsal OTHER SURGICAL HISTORY 11/16/2022 PROCEDURE: IA INCISION BONE CORTEX FOOT; COMMENT: fourth metatarsal OTHER SURGICAL HISTORY 11/16/2022 Right PROCEDURE: IA SECONDARY CLOSURE SURG WOUND/DEHSN XTNSV/COMP; COMMENT: right foot Medical History Medical History Date Comments Celiac disease 01/06/2021 DX:Celiac diseas e CKD (chronic kidney disease) stage 3, GFR 30-59 ml/min [place] 01/06/2021 DX:CKD (chronic kidney dise ase) stage 3, GFR 30-59 ml/min ([facility]) Class 3 severe obesity due t o excess calories with serious comorbidity and body mass index (BMI) of 45.0 to 49.9 in adult ([facility]) 08/05/2020 DX:Class 3 severe obesity du e to excess calories with serious comorbidity and body mass index (BMI) of 45.0 to 49.9 in adult ([facility]) Diabetic nephropathy ([facility]) 01/06/2021 D X:Diabetic nephropathy ([facility]) Diabetic neuropathy ([facility]) 01/06/2021 DX :Diabetic neuropathy ([facility]) Diabetic retinopathy ([facility]) 01/06/2021 D X:Diabetic retinopathy ([facility]) Eating disorder 01/05/2021 DX:Eating disord er Erectile dysfunction 01/06/2021 DX:Erectile dysfunction Essential hypertension, benign 08/17/2005 D X:Essential hypertension, benign Gastroparesis 01/06/2021 DX:Gastroparesis Gout 08/17/2005 DX:Gout Hyperlipidemia 01/06/2021 DX:Hyperlipidemi a Inguinal hernia 01/06/2021 DX:Inguinal leonard ia; COMMENT: bilateral Multinodular goiter (nontoxic) 01/06/2021 D X:Multinodular goiter (nontoxic) CECIL on CPAP 08/05/2020 DX:CECIL on CPAP Osteoarthritis 01/06/2021 DX:Osteoarthriti s Peripheral artery disease (CMS/HCC) 08/17/2005 DX:Peripheral artery disease (HCC) Renal calculi 01/06/2021 DX:Renal calculi S/P BKA (below knee amputati on), left (CMS/HCC) 01/05/2021 DX:S/P BKA (below knee amput ation), left ([facility]); COMMENT: 06/28/17, uses prosthetic leg Type 2 diabetes mellitus wit h eye manifestations ([facility]) 01/06/2021 DX:Type 2 diabetes mellitus with eye manifestations (HCC) 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 ([facility]) 09/04/2005 DX:Type 2 diabete s mellitus with neurological complications (HCC) Type 2 diabetes mellitus wit h renal manifestations ([facility]) 01/06/2021 DX:Type 2 diabetes mellitus with renal manifestations (HCC) Type 2 diabetes mellitus wit h vascular disease ([facility]) 01/06/2021 DX:Type 2 diabetes mellitus with vascular disease (HCC) Family History Medical History Relation Name Comments Diabetes Father hypertension Relation Name Status Comments Brother Alive Father (Age 48) dm Mother Alive Sister Alive Social History Tobacco Use Types Packs/Day Years Used Date Smoking Tobacco: Never Smokeless Tobacco: Never Tobacco Cessation:Counseling Given: Not Answered Alcohol Use Standard Drinks/Week Comments No 0 (1 standard drink = 0.6 oz pur e alcohol) Sex and Gender Information Value Date Recorded Sex Assigned at Not on file Legal Sex Male 3:24 PM EST Gender Identity Not on file Sexual Orientation Not on file Obstetrics History Last Filed Vital Signs Vital Sign Reading Time Taken Comments Blood Pressure 121/68 05/15/2024 4:00 PM EST Pulse 96 05/15/2024 4:00 PM EST Temperature 36.2 ??C (97.2 ??F) 05/15/2024 4:00 PM ES T Respiratory Rate - - Oxygen Saturation 99% 05/15/2024 4:00 PM EST Inhaled Oxygen Concentration - - Weight 125 kg (275 lb) 12/01/2023 2:17 PM EDT Height 180.3 cm (5' 11 ) 05/15/2024 4:00 PM EST Body Mass Index 38.35 12/01/2023 2:17 PM EDT Plan of Treatment Health Maintenance Due Date Last Done Comments Diabetes: Annual Foot Exam 1977 Diabetes: Annual Retina Eye Exam 1977 Hepatitis B Vaccines (1 of 3 - 19+ 3-dose series) 1986 Pneumococcal Vaccine: 50+ Years (1 of 2 - PCV) 1986 Pneumococcal Vaccine: Pediatrics (0 to 5 Years) and At-Risk Patients (6 to 64 Years) (1 of 2 - PCV) 1986 Zoster Vaccines (2 of 2) 12/08/2021 10/13/2021 Colorectal Cancer Screening: Colonoscopy 06/05/2022 Depression Screening 06/05/2022 HIV Screening 06/05/2022 Medicare Annual Wellness Visit 06/05/2022 Social Influencers of Health Screening 06/05/2022 Diabetes: Annual Urine Albumin-Creatinine Ratio (uACR) 06/06/2022 04/23/2021 Diabetes: Annual GFR (Glomerular Filtration Rate) 10/30/2023 10/29/2022 Hypertension/CHF/CAD Annual BMP Blood Test 10/30/2023 10/29/2022 COVID-19 Vaccine ( season) 2024 06/14/2022, 10/13/2021, 09/25/2020, Additional history exists Influenza Vaccine (#1) 2024 , 04/16/2021, 08/12/2020, Additional history exists Diabetes: Blood Sugar Control Test (HGBA1C) 12/13/2024 06/14/2024, 06/14/2024, 2024, Additional history exists DTaP,Tdap,and Td Vaccines (2 - Td or Tdap) 11/09/2026 11/09/2016 Cholesterol Screening (Lipid Panel) 06/14/2029 06/14/2024, 2024, 10/29/2022 Hepatitis C Screening Completed 09/13/2000 HIB Vaccines Aged Out No longer eligi ble based on patient's age to complete this topic HPV Vaccines Aged Out No longer eligi ble based on patient's age to complete this topic Hepatitis A Vaccines Aged Out No long er eligible based on patient's age to complete this topic IPV Vaccines Aged Out No longer eligi ble based on patient's age to complete this topic MMR Vaccines Aged Out No longer eligi ble based on patient's age to complete this topic Meningococcal ACWY Vaccine Aged Out N o longer eligible based on patient's age to complete this topic Meningococcal B Vacine Aged Out No lo nger eligible based on patient's age to complete this topic RSV Immunization Patients Under 20 months Aged Out No longer eligible based on patient's age to complete this topic Varicella Vaccines Aged Out No longer eligible based on patient's age to complete this topic Procedures Procedure Name Priority Date/Time Associated Diagnosis Comments CULTURE WOUND DEEP Routine 06/19/2024 12 :12 PM EST Diabetic ulcer of right midfoot associated with type 1 diabetes mellitus, unspecified ulcer stage (CMS/HCC) ANNUAL BMP BLOOD TEST Routine 10/29/2022 HEMOGLOBIN A1C Routine 10/29/2022 LIPID PANEL Routine 10/29/2022 URINE ALBUMIN CREATININE RATIO Routine 04/23/2021 HEPATITIS C SCREENING Routine 09/13/2000 from Last 3 Months or Most Recently Relevant to Health Maintenance Results * (ABNORMAL) Culture wound deep (06/19/2024 12:12 PM EST) Culture, Wound Citrobacter braakii(A) ANNETTE 06/24/2024 10:34 AM EST [facility] Comment: The organism value for this result has been updated. These results have been appended to the previously preliminary verified report. This is an edited result. Previous organism was Gram negative bacilli on 06/22/2024 at 1411 EST. Culture, Wound Pseudomonas aeruginosa(A) ANNETTE 06/24/2024 10:34 AM [facility] Comment: The organism value for this result has been updated. These results have been appended to the previously preliminary verified report. Culture, Wound Streptococcus beta-hemolytic Group B(A) ANNTETE 06/24/2024 10:34 AM [facility] Comment: Susceptibility testing is not routinely performed for Beta Streptococcus isolates since these organisms are predictably sensitive to Penicillin. If the Patient is not responding, is allergic to Penicillin, or further therapeutic information is requir ed, please consult an Infectious Disease Specialist. The organism value for this result has been updated. These results have been appended to the previously preliminary verified report. Gram Stain Result No polymorphonuclear leukocytes seen(A) 06/24/2024 10:34 AM [facility] Gram Stain Result Moderate Gram positive cocci in pairs and chains(A) 06/24/2024 10:34 AM [facility] Gram Stain Result Few Gram negative bacilli(A) 06/24/2024 10:34 AM [facility] Gram Stain Result Rare Epithelial cells(A) 06/24/2024 10:34 AM [facility] Swab Structure of toe of right foot / Unknown Non-blood Collection / Unknown 06/19/2024 12:12 PM EST 06/19/2024 12:14 PM EST Narrative Organism Antibiotic Method Susceptibility Citrobacter braakii Amoxicillin/Clavulanate ANNETTE >=32 ug/ml: Resistant Citrobacter braakii Cefoxitin ANNETTE >=64 ug/ml: Resistant Citrobacter braakii Ceftazidime ANNETTE <=0.5 ug/ml: Susceptible Citrobacter braakii Amikacin ANNETTE <=1 ug/ml: Susceptible Citrobacter braakii Gentamicin ANNETTE <=1 ug/ml: Susceptible Citrobacter braakii Ciprofloxacin ANNETTE <=0.06 ug/ml: Susceptible Citrobacter braakii Trimethoprim/Sulfame thoxazo le ANNETTE >=320 ug/ml: Resistant Pseudomonas aeruginosa Piperacillin/Tazobactam ANNETTE <=4 ug/ml: Susceptible Pseudomonas aeruginosa Ceftazidime ANNETTE 2 ug/ml: Susceptible Pseudomonas aeruginosa Cefepime ANNETTE 2 ug/ml: Susceptible Pseudomonas aeruginosa Meropenem ANNETTE 1 ug/ml: Susceptible Pseudomonas aeruginosa Ciprofloxacin ANNETTE <=0.06 ug/ml: Susceptible Pseudomonas aeruginosa Levofloxacin ANNETTE 0.25 ug/ml: Susceptible Carlitos Almendarez MD LAB MICROBIOLOGY - GENERAL O RDERABLES Final Result [facility] ([facility]) [facility] [address] [place] [address], [place] [phone] * Annual BMP Blood Test (10/29/2022) [facility] Annual BMP Blood Test abstracted Historical Provider HEALTH MAINTENANCE Final Result * Lipid panel (10/29/2022) [facility] LDL/HDL Ratio 3 0 - 4 Triglycerides 55 0 - 150 mg/dL Cholesterol 125 0 - 200 mg/dL HDL 51 >=40 mg/dL LDL Cholesterol 63 0 - 100 mg/dL Blood Venous blood specimen / Unknown Result [facility] Historical Provider LAB BLOOD ORDERABLES Elba l Result * Urine Albumin Creatinine Ratio (04/23/2021) [facility] Urine Albumin Creatinine Ratio abstracted Historical Provider HEALTH MAINTENANCE Final Result * Hepatitis C Screening (09/13/2000) [facility] Hepatitis C Screening abstracted Historical Provider HEALTH MAINTENANCE Final Result from Last 3 Months or Most Recently Relevant to Health Maintenance Insurance [employer] Member Subscriber Plan / Payer (Ef fective 2021-Present) Name:Moustapha Ruiz Sr. Relation to Subscriber:Self Name:SaraMoustapha Sr. Payer ID:[id number] Group ID:[id number] Type:Not on file Address: [facility] [address] [id number] Care Teams Machine Dyer Relationship Specialty Start Date End Date Shereen Cortes MD [address] [place] [address] PCP - General Internal Medicine 08/10/21
--- OUTSIDE RECORDS SUMMARY | 2024-09-05 08:08 | XMS_ITS ---
Author Organization [facility] Address [address] [place] [phone] Care Team Providers Care Mainframe Consultant Name Role Phone Sebastian CASTRO, Shereen Primary Care Provider Donte Llamas [phone] REASON FOR VISIT Pt no showed Encounters Encounter Location Date Provider Diagnosis [facility] [address] [place] [phone] 03/09/2024 Donte Ching Plan Of Treatment No Information Progress Notes * PAKO MEDINADOB:[birth year] (58 yo M)Acc No.[id number]:03/09/2024 Patient:?PAKO MEDINA :1965???Age:58 Y???Sex:Male Address:[address] [place] [address] [place], [address] * true * Date:? Generated for Printi ng/Fabrentg/eTransmitting on:?09/05/2024 08:08 AM EDT
--- OUTSIDE RECORDS SUMMARY | 2024-09-05 08:08 | XMS_ITS | Continuity of Care Document ---
Author Organization [facility] Address [address] [place] [address]- Care Team Providers Care Surface Boss Name Role Phone Sebastian CASTRO, Shereen Banerjee Primary Care Physician Encounter [facility] Date(s): 07/13/24 - 08/12/24 [facility] [address] [place], [place] [address] Encounter Type: Triage Allergies, Adverse Reactions, [...] influenza virus vaccine, inactivated 03/26/16 Jeremiah rded [id number] 12y+ bivalent booster vax 06/14/22 Recorded zoster vaccine, inactivated 10/13/21 Recorded SARS-CoV-2 mRNA (kuvpyik-[id number]) vax 10/13/21 Recorded SARS-CoV-2 (COVID-19) mRNA BNT-162b2 [...] 1:56:00 PM EST,Route to Pharmacy Electronically, [facility], Partial fill upon [...] Maintenance, 07/02/24 1:56:00 PM EST, [facility]apsule[facility], [facility] fill upon patient [...] 12:19:00 PM EDT, Route to Pharmacy Electronically, [facility]/pharmacy #[id number], Partial fill upon patient request if the [...] Refills, Maintenance, 07/03/24 10:20:00 AM EST,Injection, [facility], Partial fill upon [...] Maintenance, 07/03/24 10:19:00 AM EST, Injection, [facility], Partial fill upon patient request [...] Refills, Maintenance, 07/17/24 10:37:00 AM EST, Ointment, [facility]/pharmacy #[id number], Partial fill upon patient request [...] Refills, Maintenance, 01/22/23 12:12:00 PM EDT, Tablet, [facility]/pharmacy #[id number], Partial fill upon patient request [...] AM EST, Route to Pharmacy Electronically, [facility], Partial fill upon patient request if the prescription is for a schedule II opioid drug., 177.5, cm, 08/20/22 6:57:00 EST, Height, 133.6, kg, 08/13/22 0:23:00 EST, Dry Weight Start Date: 08/20/22 Stop Date: 09/19/22 Status: Ordered Quantity: 30.0 Unit: capsule Repeat number: 1 XL Brava Barrier Strips 23450 XL Brava Barrier Strips 84816, See Instructions, # 40 each, Refills 11, [...] Team Personnel Name: Tomy Grady RN Position: [facility] RN Member Role: Primary Care Nurse Name: Pita Arriaza RN Position: [facility] RN Member Role: Primary Care Nurse Name: Tiffanie Cantu RN Position: [facility] RN Member Role: Primary Care Nurse Name: Ponce Wilkes RN Position: [facility] RN Member Role: Primary Care Nurse Name: Lanette Yeh RN Position: [facility] RN Member Role: Primary Care Nurse Name: Nadja Helms Position: [facility] Outreach Member Role: Lifetime Consulting Physician Name: Veronica Garibay Position: [facility] Associate Professional Member Role: Lifetime Consulting Provider Address: [address] [place] [address] [address] [facility] [address] [facility]: Name: Elizabeth Garcia RN Position: [facility] RN Member Role: Primary Care Nurse Name: Judson Alarcon RN Position: [facility] RN Member Role: Primary Care Nurse Name: Ira Harris RN Position: [facility] RN Member Role: Primary Care Nurse Name: Shereen Cortes MD Position: Reference Physician Member Role: PCP Address: [address] [place] [address]- [place] [employer]: Name: Willa Ruiz MD Position: [facility] Renal MD Member Role: Lifetime Consulting Physician Address: [address] [facility] [place] [address]- [place] [employer]: Name: Lily Hooper RN Position: [facility] RN Member Role: Lifetime Consulting Physician Name: Dwayne Rollins MD Position: [facility] Renal MD Member Role: Lifetime Consulting Physician Address: [address] [facility] [address] [facility] [place] [address]- [place] [employer]: Name: Kylie Rivera RN Position: [facility] RN Member Role: Primary Care Nurse Name: Tiara Coleman Position: [facility] AMB Nurse Member Role: Lifetime Consulting Physician Name: Donte Clark III, RN Position: [facility] RN Member Role: Primary Care Nurse Name: Meg Willis RN Position: [facility] RN Member Role: Primary Care Nurse Name: Tova Vidales RN Position: [facility] RN Member Role: Primary Care Nurse Name: Nathan Dumont RN Position: [facility] RN Member Role: Primary Care Nurse Name: Chelo Marie RN Position: [facility] RN Member Role: Primary Care Nurse Name: Soto Amador RN Position: [facility] RN Member Role: Primary Care Nurse Name: Mary Conti RN Position: [facility] Outreach Member Role: Lifetime Consulting Physician Name: Rafael Shah MD Position: S Outreach Member Role: Lifetime Consulting Physician Address: [address] [facility] [place] [address]- [place] [employer]: Name: Cherie Alcantar RN Position: [facility] RN Member Role: Primary Care Nurse Name: Billie Goddard RN Position: [facility] RN Member Role: Primary Care Nurse Name: Flower Gustafson RN Position: [facility] RN Member Role: Primary Care Nurse Name: Cathi Mancini Position: [facility] RN Member Role: Primary Care Nurse Name: Pietro Miranda MD Position: [facility] Renal MD Member Role: Lifetime Consulting Physician Address: [address] [facility] [address] [facility] [address] Tele[employer]: Name: Jessi Armenta RN Position: [facility] RN Member Role: Primary Care Nurse Name: Tori Gould RN Position: [facility] RN Member Role: Primary Care Nurse Name: Francis Mccann RN Position: [facility] RN Member Role: Primary Care Nurse Care Team Related Persons Name: SHON MEDINA Insurance Providers Guarantor name: PAKO [facility] Plan Information #: 1 Payer: [facility] Member Number: NA Policy Number: NA Group Number: [id number]
--- OUTSIDE RECORDS SUMMARY | 2024-09-05 08:08 | XMS_ITS | Data Portability ---
[facility] [place] [place] [facility] Address [address] [place] [id number] Care Team Providers Care Parallel Computing Software Engineer Name Role Phone BRITTNEY FROST Primary Care Provider HIM CCA OTHER Assessment No assessment recorded. Plan of Treatment Reminders Order Date Submit Date Provider Last Modified By Organization Details Last Modified Time Details Appointments None recorded. Lab rapid strep group A, throat [address], [address] [place] [address], [phone], 18:31:39 rapid SARS CoV 2 Ag, QL IA, respiratory specimen [address], [address] [place] [address], [phone], 18:31:39 rapid flu (A+B) [address], [address] [place] [address], [phone], 18:31:39 Referral None recorded. Procedures None recorded. Surgeries None recorded. Imaging None recorded. Medication Orders None recorded. Patient TargetsNo targets recorded. Patient InstructionsNo instructions recorded. Reason for Referral None Reported. Results Created Date Observation Date Name Description Value Unit Range Abnormal Flag Note LastModifiedBy Organization Detail LastModifiedTime 04/08/2004/08/2023 rapid flu (A+B) Flu negati ve Not Available [address], [phone], 04/08/2023 18:31:21 04/08/2004/08/2023 rapid SARS CoV 2 Ag, QL IA, respi rator y speci men rapid SARS CoV 2 Ag, QL IA, respiratory specimen negati ve Not Available [facility] ed [address] [place] [address], [phone], 04/08/2023 18:31:20 04/08/20 23 04/08/2023 rapid strep group A, throa t Strep negati ve Not Available [facility] ed [address] [place] [address], [phone], 04/08/2023 18:31:18 Result Notes None recorded. Medical Equipment None Reported. Allergies Allergen ID Allergen Name Allergen Category Reaction Reaction Severity Criticality Documentation Date Start Date Code Code System Note Provider Name and Address Organization Details Recorded Time 9012 vancomyci n medicatio n Not available Not available Not available 04/24/2024 43462 RxNorm Not Available [facility] - production 03:48:28 Medications Name Sig Start Date Stop Date Status Note LastModified by Organization Details LastModified Time carvedilol 6.25 mg tablet TAKE 1 TABLET BY MOUTH TWO TIMES A DAY active Not Available Not Available Not Available gabapentin 600 mg tablet TAKE 2 TABLETS BY MOUTH TWICE DAILY ORALLY 30 DAYS active Not Available Not Available No t Available doxycycline hyclate 100 mg capsule TAKE 1 CAPSULE BY MOUTH TWICE A DAY FOR 7 DAYS active Not Available Not Available No t Available torsemide 20 mg tablet TAKE 2 TABLETS BY MOUTH EVERY DAY active Not Available Not Available No t Available atorvastatin 10 mg tablet TAKE 1 TABLET BY MOUTH EVERY DAY active Not Available Not Available No t Available clonidine 0.2 mg/24 hr weekly transdermal patch APPLY 1 PATCH TOPICALLY EVERY WEEK. REMOVE OLD PATCH BEFORE APPLYING NEW ONE. active Not Available Not Available No t Available hydralazine 25 mg tablet TAKE 2 TABLETS BY MOUTH THREE TIMES A DAY active Not Available Not Available Not Available allopurinol 100 mg tablet TAKE 1 TABLET BY MOUTH EVERY DAY active Not Available Not Available No t Available sulfamethoxa zole 800 mg-trimethop rim 160 mg tablet TAKE 1 TABLET BY MOUTH 2 TIMES A DAY STARTING DAY AFTER SURGERY active Not Available Not Available No t Available omeprazole 40 mg capsule,maximino yed release TAKE 1 CAPSULE BY MOUTH EVERY MORNING active Not Available Not Available No t Available metocloprami de 5 mg tablet TAKE 1 TABLET BY MOUTH DAILY FOR NAUSEA/VOMI TING active Not Available Not Available No t Available tamsulosin 0.4 mg capsule TAKE 1 CAPSULE BY MOUTH EVERY DAY active Not Available Not Available No t Available sodium bicarbonate 650 mg tablet TAKE 2 TABLETS BY MOUTH TWO TIMES A DAY FOR 14 DAYS active Not Available Not Available Not Available amlodipine 10 mg tablet TAKE 1 TABLET BY MOUTH EVERY DAY active Not Available Not Available No t Available triamcinolon e acetonide 0.1 % lotion APPLY TO RASH TWICE DAILY FOR 3 MONTHS active Not Available Not Available No t Available oxycodone 5 mg tablet TAKE 1 TABLET BY MOUTH EVERY 4 - 6 HOURS NEEDED FOR SEVERE PAIN. MAX DAILY DOSE 4 TABS. active Not Available Not Available No t Available Novolog FlexPen U-100 Insulin aspart 100 unit/mL (3 mL) subcutaneous PLEASE SEE ATTACHED FOR DETAILED DIRECTIONS active Not Available Not Available N ot Available BD Ultra-Fine Short Pen Needle 31 gauge x 5/16 USE 4 TIMES A DAY WITH INSULIN active Not Available Not Available No t Available FreeStyle Lite Strips USE TO TEST BLOOD SUGAR THREE TIMES DAILY (E11.39) active Not Available Not Available No t Available Toujeo SoloStar U-300 Insulin 300 unit/mL (1.5 mL) subcutaneous pen INJECT 10 UNITS INTO THE SKIN AT BEDTIME. active Not Available Not Available No t Available Humalog KwikPen U-200 Insulin 200 unit/mL (3 mL) subcutaneous PLEASE SEE ATTACHED FOR DETAILED DIRECTIONS active Not Available Not Available N ot Available Vitals Date Recorded Body temperature Respiratory rate Oxygen saturation Oxygen saturation in Arterial blood by Pulse oximetry Heart rate Systolic blood pressure Diastolic blood pressure Provider Name and Address Organization Details Last Updated DateTime 3 98.1 [degF] 16 /min 99 % 99 % 86 /min 93 mm[Hg] 54 mm[Hg] Not Available [email or web address] 3 18:30:42 Date Recorded Oxygen saturation Oxygen saturation in Arterial blood by Pulse oximetry Heart rate Body temperature Respiratory rate Systolic blood pressure Diastolic blood pressure Provider Name and Address Organization Details Last Updated DateTime 3 95 % 95 % 85 /min 97.8 [degF] 20 /min 172 mm[Hg] 87 mm[Hg] Not Available [facility] 3 15:38:56 Social History None recorded. Functional Status None recorded. Mental Status None recorded. Family History Nothing Reported. Medical History No medical history recorded. Past Encounters Encounter ID Performer Location Encounter Start Date Encounter Closed Date Diagnosis/Indication Diagnosis SNOMED-CT Code Diagnosis ICD10 Code Diagnosis Note [id number] Milan Ma MD Main - [address] [address] 09/13/2022 15:38:50 09/15/2022 09:13:27 Acute kidney injury 32672348 N17.9 This 57-year-ol d male was hospitaliz ed a month ago with CHF and stage 3 CKD. He called today because of increasing dyspnea and weakness. His BUN was 55 and his creatinine was 4.9. I recommende d that he go to the [facility] ER for evaluation of his acute renal failure. The patient agreed with this plan. [id number] Tangela Cerrato MD Main - [address] [address] 04/08/2023 18:30:34 04/12/2023 10:52:07 Sore throat 599344504 J02.9 Health Concerns Section Related Observation LastModified by Organization Detai ls LastModified Time None Recorded Concern Status LastModified by Organization Details LastModified Time None Recorded Advance Directives Directive None Recorded Payers Encounter Date Sequence Insurance Name Policy Number Policy Castro Covered Member ID Castro Member ID Guarantor Name 09/13/2022 1 [facility] - DOS PRIOR TO 2022 - DUAL ELIGIBLE (MEDICARE REPLACEMENT/ADV ANTAGE - HMO) Moustapha Ruiz [id number] Moustapha Ruiz 04/08/2023 1 [facility] - DOS ON OR AFTER 2022 - DUAL ELIGIBLE - LONG TERM OPTIONS AND ONE CARE (MEDICARE REPLACEMENT/ADV ANTAGE - HMO) Moustapha Ruiz [id number] Moustapha Ruiz Notes Date Note Type Note Provider Name and Address Organization Details Recorded Time 09/13/2022 text/html [facility] Nursing Assessment: Patient Reports: Cough; Shortness of breath with exertion Chief Complaints: Syncope/Dizziness/Lig htheadedness PMH: Diabetes, Other Allergies: Vancomycin Comments: Member calling with request for [facility] for eval for SOB and fluid retention x 1 month +fatigue. s/p hospitalization 1 month ago HX CKD VSS per [facility] nurse with member. No acute distress. Discuss if symptoms progress to seek 911-verblaize understanding. Verify member name/ ..................... ..................... ..................... ..................... ..................... ..................... ............... Polishing Machine Operator Note From Lily Quinones: [facility] Polishing Machine Operator Nettie Quinones Sc6 dispatched to a red for a 57 yom C/O SOB. Upon arrival, the pt was ambulatory w/ obvious SOB, 1-2 word dyspnea. He was awake and alert, LARA X4, not in acute distress. He stated that he was discharged from [facility] 1 month prior, and that he had become increasingly short of breath on exertion since then. He stated he had stage 3 CKD, and was taking 20 mg torsemide daily. Rales heard in lower mancera. CMP acquired-results in [facility]. [facility] consulted; due to critically high BUN and creatinine levels, it was recommended to the pt that he seek hospitalization immediately. The pt refused 911 transport, stating his would drive him to [facility]. Polishing Machine Operator Allergies: Vancomycin ..................... ..................... ..................... ..................... ..................... ..................... ............... Disposition: Fulfilled Milan Ma MD [address], [place], [phone], [facility] [employer] 09/13/2022 15:43:25 04/08/2023 text/html HPI: mbr with complaints of sore throat, mbr was recently intubated for an abdominal procedure states ever since he had this done he increasingly developed sore throat, states feeling as if he had streptococcal pharyngitis. requesting [facility] visit. Protocol Used: Sore Throat Protocol-Based Disposition: Consider [facility], [facility] Community Clinician, or PCP visit within 24 hours Positive Triage Questions: * [1] Rash AND [2] widespread (especially chest and abdomen) * Fever present > 3 days (72 hours) Negative Triage Questions: * SEVERE difficulty breathing (e.g., struggling for each breath, speaks in single words, stridor) * [1] Drooling or spitting out saliva (because can't swallow) AND [2] normal breathing * Unable to open mouth completely * [1] Difficulty breathing AND [2] not severe * SEVERE (e.g., excruciating) throat pain ..................... ..................... ..................... ..................... ..................... ..................... ............... CRC Nursing Assessment: Comments: CRC RN did not require any additional information to process this visit. ..................... ..................... ..................... ..................... ..................... ..................... ............... Polishing Machine Operator Note From Virgil Perez: Pt reports sore throat after intubation, on Tuesday for abd ax. States that since then the sore throat has been getting worse and states that today he has been feeling well. States that he had HD done and after has been tired. On scene vs taken and COVID and flu done. [facility] was called and cleared. Polishing Machine Operator Allergies: Vancomycin ..................... ..................... ..................... ..................... ..................... ..................... ............... Disposition: Fulfilled Tangela Cerrato MD [address] [facility], [place], [phone], [place] [facility] 07/06/2023 18:36:26
--- OUTSIDE RECORDS SUMMARY | 2024-09-05 08:09 | XMS_ITS | Continuity of Care Document ---
Author Organization [facility] Address [address] [place] [address]- Care Team Providers Care Structural Analyst Name Role Phone Sebastian CASTRO, Shereen Banerjee Primary Care Physician Encounter [facility] Date(s): 07/31/24 - 08/07/24 [facility] [address] [place] [id number] Attending Physician: Ashely VANN, Chen Patterson Admitting Physician: Chen Lund NP Referring Physician: Shereen Cortes MD Encounter Type: Office Visit Allergies, Adverse [...] influenza virus vaccine, inactivated 03/26/16 Jeremiah rded [id number] 12y+ bivalent booster vax 06/14/22 Recorded zoster vaccine, inactivated 10/13/21 Recorded SARS-CoV-2 mRNA ([id number]) vax 10/13/21 Recorded SARS-CoV-2 (COVID-19) mRNA BNT-162b2 [...] 07/02/24 1:56:00 PM EST,Route to Pharmacy Electronically, [facility], Partial fill upon patient request [...] Refills, Maintenance, 07/02/24 1:56:00 PM EST, Capsule, [facility], Partial fill upon patient request [...] 12:19:00 PM EDT, Route to Pharmacy Electronically, [facility]/pharmacy #[id number], Partial fill upon patient request [...] 0 Refills, Maintenance, 07/03/24 10:20:00 AM EST,Injection, [facility], Partial fill upon patient request [...] Refills, Maintenance, 07/03/24 10:19:00 AM EST, Injection, [facility], Partial fill upon [...] Refills, Maintenance, 07/17/24 10:37:00 AM EST, Ointment, [facility]/pharmacy #[id number], Partial fill upon patient [...] Refills, Maintenance, 01/22/23 12:12:00 PM EDT, Tablet, [facility]/pharmacy #[id number], Partial fill upon patient [...] 8:45:00 AM EST, Route to Pharmacy Electronically, [facility] [...] oldest [Reference Range]: 1 Height 180 cm (07/31/24 8:02 AM) Weight 109 kg (07/31/24 8:02 AM) Oxygen Saturation [94-100 %] 96 % (07/31/24 8:02 AM) Pulse Rate [55-90 bpm] 81 bpm (07/31/24 8:02 AM) Body Mass Index [18.5-24.99 kg/m2] 33.64 kg/m2 *>HHI* (07/31/24 8:02 AM) Blood Pressure [90-138/55-84 mm Hg] 120/ 74mm Hg (07/31/24 8:02 AM) Mode of Delivery (Oxygen) Room air (07/31/24 8:02 AM) Blood pressure sites Arm, left (07/31/24 8:02 AM) Weight Obtained Via Patient/family state d (07/31/24 8:02 AM) Social History Social History Type Response [...] Care Nurse Name: Lanette Yeh RN Position: S RN Member Role: Primary Care Nurse Name: Nadja Helms Position: [facility] Outreach Member Role: Lifetime Consulting Physician Name: Veronica Garibay Position: [facility] Associate Professional Member Role: Lifetime Consulting Provider Address: [address] [facility] [place] [address]- Telecom: Name: Elizabeth Garcia RN Position: [facility] RN Member Role: Primary Care Nurse Name: Ira Harris RN Position: [facility] RN Member Role: Primary Care Nurse Name: Shereen Cortes MD Position: Reference Physician Member Role: PCP Address: [address] [place] [address]- [place] Telecom: Name: Willa Ruiz MD Position: [facility] Renal MD Member Role: Lifetime Consulting Physician Address: [address] [facility] [place] [address]- Telecom: Name: Lily Hooper RN Position: [facility] RN Member Role: Lifetime Consulting Physician Name: Dwayne Rollins MD Position: [facility] Renal MD Member Role: Lifetime Consulting Physician Address: [address] [facility] [address] [facility] [place] [address]- Telecom: Name: Kylie Rivera RN Position: [facility] RN Member Role: Primary Care Nurse Name: Tiara Coleman Position: [facility] AMB Nurse Member Role: Lifetime Consulting Physician Name: Donte Clark III, RN Position: [facility] RN Member Role: Primary Care Nurse Name: Meg Willis RN Position: [facility] RN Member Role: Primary Care Nurse Name: Tova Vidales RN Position: [facility] RN Member Role: Primary Care Nurse Name: Nathan Dumont RN Position: [facility] RN Member Role: Primary Care Nurse Name: Chelo Marie RN Position: [facility] RN Member Role: Primary Care Nurse Name: Soto Amador RN Position: [facility] RN Member Role: Primary Care Nurse Name: Mary Conti RN Position: [facility] Outreach Member Role: Lifetime Consulting Physician Name: Rafael Shah MD Position: [facility] Outreach Member Role: Lifetime Consulting Physician Address: [address] [facility] [place], [address] Telecom: Name: Cherie Alcantar RN Position: S RN Member Role: Primary Care Nurse Name: Billie Goddard RN Position: S RN Member Role: Primary Care Nurse Name: Flower Gustafson RN Position: S RN Member Role: Primary Care Nurse Name: Cathi Mancini Position: S RN Member Role: Primary Care Nurse Name: Pietro Miranda MD Position: [facility] Renal MD Member Role: Lifetime Consulting Physician Address: [address] [facility] [address] [facility] [address] Telecom: Name: Jessi Armenta RN Position: S RN Member Role: Primary Care Nurse Name: Tori Gould RN Position: S RN Member Role: Primary Care Nurse Name: Francis Mccann RN Position: S RN Member Role: Primary Care Nurse Care Team Related Persons Name: SHON MEDINA Insurance Providers Guarantor name: PAKO MEDINA Health Plan Information #: 1 Payer: [employer] Member Number: [id number] Policy Number: NA Group Number: [facility] Health Plan Information #: 2 Payer: [employer] Member Number: [id number] Policy Number: NA Group Number: [id number]
--- OUTSIDE RECORDS SUMMARY | 2024-09-05 08:09 | XMS_ITS | Continuity of Care Document ---
Author Organization [facility] Address [address] [place] [address]- Care Team Providers Care Mascara Molder Name Role Phone Sebastian CASTRO, Shereen Banerjee Primary Care Physician Encounter [facility] Date(s): 07/11/24 - 08/10/24 [facility] [address] [place], [place] [address] Encounter Type: Triage Allergies, Adverse Reactions, [...] influenza virus vaccine, inactivated 03/26/16 Jeremiah rded [id number] 12y+ bivalent booster vax 06/14/22 Recorded zoster vaccine, inactivated 10/13/21 Recorded SARS-CoV-2 mRNA ([id number]) vax 10/13/21 Recorded SARS-CoV-2 (COVID-19) mRNA BNT-162b2 [...] 07/02/24 1:56:00 PM EST,Route to Pharmacy Electronically, [facility], Partial fill upon patient [...] Refills, Maintenance, 07/02/24 1:56:00 PM EST, [facility], Partial fill upon patient request [...] 12:19:00 PM EDT, Route to Pharmacy Electronically, [facility]/pharmacy #[id number], Partial fill upon patient request if the [...] 0 Refills, Maintenance, 07/03/24 10:20:00 AM EST,Injection, [facility], Partial fill upon patient [...] Refills, Maintenance, 07/03/24 10:19:00 AM EST, Injection, [facility], Partial fill upon patient request [...] Refills, Maintenance, 07/17/24 10:37:00 AM EST, Ointment, [facility]/pharmacy #[id number], Partial fill upon patient request [...] Refills, Maintenance, 01/22/23 12:12:00 PM EDT, Tablet, [facility]/pharmacy #[id number], Partial fill upon patient request [...] 8:45:00 AM EST, Route to Pharmacy Electronically, [facility], Partial fill upon patient request if the prescription is for a schedule II opioid drug., 177.5, cm, 08/20/22 6:57:00 EST, Height, 133.6, kg, 08/13/22 0:23:00 EST, Dry Weight Start Date: 08/20/22 Stop Date: 09/19/22 Status: Ordered Quantity: 30.0 Unit: capsule Repeat number: 1 XL Brava Barrier Strips 73217 XL Brava Barrier Strips 24460, See Instructions, # 40 each, Refills 11, [...] disease) Confirmed Active Diabetic retinopathy Confirmed Active Social History Social History Type Response Smoking Status Never (less than 100 in lifetime) entered on: 12/15/23 Sex Sex Representation Male (finding) Patient Care team information Care Team Personnel Name: Tomy Grady RN Position: [facility] RN Member Role: Primary Care Nurse Name: Pita Arriaza RN Position: [facility] RN Member Role: Primary Care Nurse Name: Tiffanie Cantu RN Position: [facility] RN Member Role: Primary Care Nurse Name: Ponce Wilkes RN Position: [facility] RN Member Role: Primary Care Nurse Name: Lanette Yeh RN Position: [facility] RN Member Role: Primary Care Nurse Name: Nadja Helms Position: [facility] Outreach Member Role: Lifetime Consulting Physician Name: Veronica Garibay Position: [facility] Associate Professional Member Role: Lifetime Consulting Provider Address: [address] [place] [address] [address] [facility] [place] [address]- Telecom: Name: Elizabeth Garcia RN Position: [facility] RN Member Role: Primary Care Nurse Name: Ira Harris RN Position: [facility] RN Member Role: Primary Care Nurse Name: Sebastian CASTRO , Shereen Banerjee Position: Reference Physician Member Role: PCP Address: [address] [place] [address]- Telecom: Name: Willa Ruiz MD Position: [facility] Renal MD Member Role: Lifetime Consulting Physician Address: [address] [facility] [address] Telecom: Name: Lily Hooper RN Position: S RN Member Role: Lifetime Consulting Physician Name: Dwayne Rollins MD Position: [facility] Renal MD Member Role: Lifetime Consulting Physician Address: [address] [facility] [place], [place] [address] Telecom: Name: Kylie Rivera RN Position: [facility] RN Member Role: Primary Care Nurse Name: Tiara Coleman Position: [facility] AMB Nurse Member Role: Lifetime Consulting Physician Name: Donte Clark III, RN Position: [facility] RN Member Role: Primary Care Nurse Name: Meg Willis RN Position: [facility] RN Member Role: Primary Care Nurse Name: Tova Vidales RN Position: [facility] RN Member Role: Primary Care Nurse Name: Nathan Dumont RN Position: [facility] RN Member Role: Primary Care Nurse Name: Chelo Marie RN Position: [facility] RN Member Role: Primary Care Nurse Name: Soto Amador RN Position: [facility] RN Member Role: Primary Care Nurse Name: Mary Conti RN Position: S Outreach Member Role: Lifetime Consulting Physician Name: Rafael Shah MD Position: S Outreach Member Role: Lifetime Consulting Physician Address: [address] [facility] [place], [place] [address] Telecom: Name: Cherie Alcantar RN Position: [facility] RN Member Role: Primary Care Nurse Name: Billie Goddard RN Position: [facility] RN Member Role: Primary Care Nurse Name: Flower Gustafson RN Position: [facility] RN Member Role: Primary Care Nurse Name: Cathi Mancini Position: S RN Member Role: Primary Care Nurse Name: Pietro Miranda MD Position: [facility] Renal MD Member Role: Lifetime Consulting Physician Address: [address] [facility] [place], [place] [address] Telecom: Name: Jessi Armenta RN Position: S RN Member Role: Primary Care Nurse Name: Tori Gould RN Position: S RN Member Role: Primary Care Nurse Name: Frnacis Mccann RN Position: S RN Member Role: Primary Care Nurse Care Team Related Persons Name: CAROLSHON GALDAMEZ Insurance Providers Guarantor name: [facility] Information #: 1 Payer: [facility] Member Number: NA Policy Number: NA Group Number: NA
--- OUTSIDE RECORDS SUMMARY | 2024-09-05 08:09 | XMS_ITS | Encounter Summary ---
Author Organization [employer] [facility] Address [address] [facility] 7t [place] [address] Care Team Providers Care Low Heel Builder Name Role Phone Unavailable Primary Care Provider Unavailabl e Encounter Details Date Type Department Care Team (Latest Contact Info) Description 09/10/2020 [facility] Dental, Provider, DDS Social History Tobacco Use Types Packs/Day Years Used Date Smoking Tobacco: Never Assessed Sex and Gender Information Value Date Recorded Sex Assigned at Male 04/26/2022 10:36 AM EDT Legal Sex Male 10:36 AM EDT Gender Identity Male 04/26/2022 10:36 AM EDT Sexual Orientation Straight 04/26/2022 10 :36 AM EDT documented as of this encounter Plan of Treatment Not on file documented as of this encounter Visit Diagnoses Not on filedocumented in this encounter
--- OUTSIDE RECORDS SUMMARY | 2024-09-05 08:09 | XMS_ITS | Clinical Summary ---
Author Organization [employer] Address [address] [facility] 7t [place] [address] Care Team Providers Care Engraver Tender Name Role Phone Unavailable Primary Care Provider Unavailabl e Social History Tobacco Use Types Packs/Day Years Used Date Smoking Tobacco: Never Assessed Sex and Gender Information Value Date Recorded Sex Assigned at Male 04/26/2022 10:36 AM EDT Legal Sex Male 10:36 AM EDT Gender Identity Male 04/26/2022 10:36 AM EDT Sexual Orientation Straight 04/26/2022 10 :36 AM EDT Plan of Treatment Health Maintenance Due Date Last Done Comments CT Colonography 1967 Colonoscopy 1967 Colorectal Cancer Screening 1967 Depression Screening 1967 FIT DNA/Cologuard 1967 FIT 1967 FOBT 1967 Lipid Panel 1967 Sigmoidoscopy 1967 Alcohol/Substance Use Screening 1979 Tobacco Screening 1979 DTaP/Tdap/Td Vaccines (1 - Tdap) 1986 Hepatitis B Vaccines (1 of 3 - 19+ 3-dose series) 1986 Pneumococcal Vaccine: 50+ Ye ars (1 of 1 - PCV) 2017 Zoster Vaccines (1 of 2) 2017 COVID-19 Vaccine ( - 2023-2 5 season) 2024 Influenza Vaccine (#1) 2024 RSV Patients and Pa tients Aged 60 years or older (1 - 1-dose 75+ series) 2042 HIB Vaccines Aged Out No longer eligi [...] patient's age to complete this topic Meningococcal Vaccine Aged Out No pamela amida eligible based on patient's age to complete this topic Pneumococcal Vaccine: Pediat rics (0 to 5 Years) and At-Risk Patients (6 to 49) Years) Aged Out No longer eligible b ased on patient's age to complete this topic RSV under 20 months Aged Out No longe r eligible based on patient's age to complete this topic Rotavirus Vaccines Aged Out No longer eligible based on patient's age to complete this topic
--- OUTSIDE RECORDS SUMMARY | 2024-09-05 08:09 | XMS_ITS | Continuity of Care Document ---
Author Organization [facility] Address [address] [place] [address] [address] [place] [address]- Care Team Providers Care Fast Food Services Manager Name Role Phone Sebastian CASTRO, Shereen Banerjee Primary Care Physician Encounter [facility] Date(s): 07/13/24 - 08/12/[address] [place], [place] [address] Encounter Type: Triage Allergies, Adverse Reactions, [...] influenza virus vaccine, inactivated 03/26/16 Jeremiah rded [id number] 12y+ bivalent booster vax 06/14/22 Recorded zoster vaccine, inactivated 10/13/21 Recorded SARS-CoV-2 mRNA ([id number]) vax 10/13/21 Recorded SARS-CoV-2 (COVID-19) mRNA BNT-162b2 [...] 07/02/24 1:56:00 PM EST,Route to Pharmacy Electronically, [facility], Partial fill upon patient [...] Refills, Maintenance, 07/02/24 1:56:00 PM EST, Capsule, [facility], Partial fill upon patient request if [...] 12:19:00 PM EDT, Route to Pharmacy Electronically, [facility]/pharmacy #[id number], Partial fill upon patient request if the [...] 0 Refills, Maintenance, 07/03/24 10:20:00 AM EST,Injection, [facility], Partial fill upon patient request if [...] Refills, Maintenance, 07/03/24 10:19:00 AM EST, Injection, [facility], Partial fill upon patient [...] Refills, Maintenance, 07/17/24 10:37:00 AM EST, Ointment, [facility]/pharmacy #[id number], Partial fill upon patient request [...] Refills, Maintenance, 01/22/23 12:12:00 PM EDT, Tablet, [facility]/pharmacy #[id number], Partial fill upon patient request [...] 8:45:00 AM EST, Route to Pharmacy Electronically, [facility], Partial fill upon patient request if the prescription is for a schedule II opioid drug., 177.5, cm, 08/20/22 6:57:00 EST, Height, 133.6, kg, 08/13/22 0:23:00 EST, Dry Weight Start Date: 08/20/22 Stop Date: 09/19/22 Status: Ordered Quantity: 30.0 Unit: capsule Repeat number: 1 XL Brava Barrier Strips 51949 XL Brava Barrier Strips 48701, See Instructions, # 40 each, Refills 11, [...] Care Nurse Name: Tiffanie Cantu RN Position: [facility] RN Member Role: Primary Care Nurse Name: Ponce Wilkes RN Position: [facility] RN Member Role: Primary Care Nurse Name: Lanette Yeh RN Position: [facility] RN Member Role: Primary Care Nurse Name: Nadja Helms Position: [facility] Outreach Member Role: Lifetime Consulting Physician Name: Veronica Garibay Position: [facility] Associate Professional Member Role: Lifetime Consulting Provider Address: [address] [place] [address] [address] [facility] [address] Telecom: Name: Elizabeth Garcia RN Position: [facility] RN Member Role: Primary Care Nurse Name: Judson Alarcon RN Position: [facility] RN Member Role: Primary Care Nurse Name: Ira Harris RN Position: [facility] RN Member Role: Primary Care Nurse Name: Shereen Cortes MD Position: Reference Physician Member Role: PCP Address: [address] [place] [address]- [place] Telecom: Name: Willa Ruiz MD Position: [facility] Renal MD Member Role: Lifetime Consulting Physician Address: [address] [facility] [place] [address]- [place] Telecom: Name: Lily Hooper RN Position: [facility] RN Member Role: Lifetime Consulting Physician Name: Dwayne Rollins MD Position: [facility] Renal MD Member Role: Lifetime Consulting Physician Address: [address] [facility] [address] [facility] [place] [address]- [place] Telecom: Name: Kylie Rivera RN Position: [facility] [...] Care Nurse Name: Mary Conti RN Position: [facility] Outreach Member Role: Lifetime Consulting Physician Name: Rafael Shah MD Position: S Outreach Member Role: Lifetime Consulting Physician Address: [address] [facility] [place], [place] [address]- [place] Telecom: Name: Cherie Alcantar RN Position: [facility] RN Member Role: Primary Care Nurse Name: Billie Goddard RN Position: [facility] RN Member Role: Primary Care Nurse Name: Flower Gustafson RN Position: [facility] RN Member Role: Primary Care Nurse Name: Cathi Mancini Position: [facility] RN Member Role: Primary Care Nurse Name: Pietro Miranda MD Position: [facility] Renal MD Member Role: Lifetime Consulting Physician Address: [address] [place] [address] [address] [facility] [address] Telecom: Name: Jessi Armenta RN Position: [facility] RN Member Role: Primary Care Nurse Name: Tori Gould RN Position: S RN Member Role: Primary Care Nurse Name: Francis Mccann RN Position: S RN Member Role: Primary Care Nurse Care Team Related Persons Name: SHON MEDINA Insurance Providers Guarantor name: [facility] Plan Information #: 1 Payer: [facility] ALLIANCE/[facility] CARE Member Number: NA Policy Number: NA Group Number: NA
--- OUTSIDE RECORDS SUMMARY | 2024-09-05 08:09 | XMS_ITS | Continuity of Care Document ---
Author Organization [facility] Address [address] [place] [address] [address] [place] [address]- Care Team Providers Care Supervisor Records Change Name Role Phone Sebastian CASTRO, Shereen Banerjee Primary Care Physician Encounter [facility] [place] Date(s): 07/26/24 - 08/25/[address] [place], [place] [address] Encounter Type: Triage Allergies, Adverse [...] influenza virus vaccine, inactivated 03/26/16 Jeremiah rded [id number] 12y+ bivalent booster vax 06/14/22 Recorded zoster vaccine, inactivated 10/13/21 Recorded SARS-CoV-2 mRNA ([id number]) vax 10/13/21 Recorded SARS-CoV-2 (COVID-19) mRNA BNT-162b2 [...] 07/02/24 1:56:00 PM EST,Route to Pharmacy Electronically, [facility], Partial fill upon [...] Refills, Maintenance, 07/02/24 1:56:00 PM EST, Capsule, [facility], Partial fill upon [...] 12:19:00 PM EDT, Route to Pharmacy Electronically, [facility]/pharmacy #[id number], Partial fill upon patient request if the [...] 0 Refills, Maintenance, 07/03/24 10:20:00 AM EST,Injection, [facility], Partial fill upon patient request if [...] Refills, Maintenance, 07/03/24 10:19:00 AM EST, Injection, [facility], Partial fill upon [...] Refills, Maintenance, 07/17/24 10:37:00 AM EST, Ointment, [facility]/pharmacy #[id number], Partial fill upon [...] Refills, Maintenance, 01/22/23 12:12:00 PM EDT, Tablet, [facility]/pharmacy #[id number], Partial fill upon [...] 8:45:00 AM EST, Route to Pharmacy Electronically, [facility], Partial fill upon patient request if [...] Repeat number: 1 XL Brava Barrier Strips 53985 XL Brava Barrier Strips [id number], See Instructions, # 40 each, Refills 11, [...] Team Personnel Name: Tomy Grady RN Position: [facility] RN Member Role: Primary Care Nurse Name: Pita Arriaza RN Position: [facility] RN Member Role: Primary Care Nurse Name: Tiffanie Cantu RN Position: [facility] RN Member Role: Primary Care Nurse Name: Ponce Wilkes RN Position: [facility] RN Member Role: Primary Care Nurse Name: Lanette Yeh RN Position: [facility] RN Member Role: Primary Care Nurse Name: Nadja Helms Position: [facility] Outreach Member Role: Lifetime Consulting Physician Name: Veronica Garibay Position: [facility] Associate Professional Member Role: Lifetime Consulting Provider Address: [address] [facility] [address]- Telecom: Name: Elizabeth Garcia RN Position: [facility] RN Member Role: Primary Care Nurse Name: Judson Alarcon RN Position: [facility] RN Member Role: Primary Care Nurse Name: Ira Harris RN Position: [facility] RN Member Role: Primary Care Nurse Name: Sebastian CASTRO , Shereen Banerjee Position: Reference Physician Member Role: PCP Address: [address] [place] [address]- Telecom: Name: Willa Ruiz MD Position: [facility] Renal MD Member Role: Lifetime Consulting Physician Address: [address] [facility] [place] [address]- Telecom: Name: Lily Hooper RN Position: [facility] RN Member Role: Lifetime Consulting Physician Name: Dwayne oRllins MD Position: [facility] Renal MD Member Role: Lifetime Consulting Physician Address: [address] [facility] [place] [address]- Telecom: Name: Kylie Rivera RN Position: [facility] RN Member Role: Primary Care Nurse Name: Tiara Coleman Position: [facility] AMB Nurse Member Role: Lifetime Consulting Physician Name: Donte Clark III, RN Position: [facility] RN Member Role: Primary Care Nurse Name: Meg Willis RN Position: [facility] RN Member Role: Primary Care Nurse Name: Tova Vidales RN Position: [facility] RN Member Role: Primary Care Nurse Name: Nathan Dumont RN Position: [facility] ANTHONY RN W/OE and Tasks Member Role: Primary Care Nurse Name: Chelo Marie RN Position: [facility] RN Member Role: Primary Care Nurse Name: Soto Amador RN Position: [facility] RN Member Role: Primary Care Nurse Name: Blanche Garcia RN Position: [facility] RN Member Role: Primary Care Nurse Name: Mary Conti RN Position: S Outreach Member Role: Lifetime Consulting Physician Name: Rafael Shah MD Position: S Outreach Member Role: Lifetime Consulting Physician Address: [address] [facility] [address] Telecom: Name: Cherie Alcantar RN Position: S RN Member Role: Primary Care Nurse Name: Billie Goddard RN Position: S RN Member Role: Primary Care Nurse Name: Flower Gustafson RN Position: S RN Member Role: Primary Care Nurse Name: Cathi Mancini Position: [facility] RN Member Role: Primary Care Nurse Name: Pietro Miranda MD Position: [facility] Renal MD Member Role: Lifetime Consulting Physician Address: [address] [facility] [address] Telecom: Name: Jessi Armenta RN Position: [facility] RN Member Role: Primary Care Nurse Name: Tori Gould RN Position: [facility] RN Member Role: Primary Care Nurse Name: Charley Cooper RN Position: [facility] RN Member Role: Primary Care Nurse Name: Francis Mccann RN Position: [facility] RN Member Role: Primary Care Nurse Care Team Related Persons Name: SHON MEDINA Insurance Providers Guarantor name: PAKO MEDINA Health Plan Information #: 1 Payer: [employer] Member Number: NA Policy Number: NA Group Number: NA
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
--- NOTE | 2024-09-05 08:29 | AM.OFFWIN_ITS ---
Intake Vital Signs 09/05/24 08:30 Weight 260 lb BP 112/74 Blood Pressure Location Rt brachial Position Sitting Pulse 77 Pulse Source Pulse Oximeter Pulse Oximetry (%) 97 Oxygen Delivery Method Room Air Intake Visit Reasons: EP Severe back pain, swollen lt eye Intake Note: Patient here for severe back pain that radiates up to the shoulders. Pt would also like to have his left eye looked at since his grand daughter had it and they were not aware of it. Patient Tobacco Use Status: Never used Tobacco Allergies cephalexin [CEPHALEXIN] Allergy (Intermediate, Verified 09/05/24 08:39) UNABLE TO MOVE ENTIRE BODY, chills and fever, nausea, chills, fever, and nausea metformin [METFORMIN] Adverse Reaction (Intermediate, Verified 09/05/24 08:39) ADVISED NOT TO TAKE ANYMORE,SHAKEY,STOMACH PAINS, stomach upset, stomach upset Do you need a note to return to daycare/school/sports/work: No HPI HPI Comments History of Present Illness Details History of Present Illness - The patient is a 59-year-old male pres enting with eye concern and back pain. - The eye concern is linked to recent ex posure to potential conjunctivitis, though presentation suggests a sty. Symptoms are mainly watery eye without purulent discharge. - Chronic back pain has an onset post-to e amputation in June. The pain radiates bilaterally to legs and shoulder, consistent with sciatica-like nerve involvement and complicated by diabetes-associated neuropathy. - Patient denies efficacy of attempted p ain management strategies, with concerns related to kidney health affecting treatment options. Physical Exam General: Cooperative, healthy appearing, comfortable, no acute distress and well developed Orientation: Patient oriented x3 Limitations: right toe amputations, left BKA Head: Normal to inspection Ears: Hearing grossly normal bilaterally Nose: Normal external nose present Face and sinus: Normal facial exam Eyes: Left eye with watery discharge, sty with erythema and edema on the upper eyelid Neck: Normal visual inspection and Yes full ROM Respiratory: Normal respiratory effort and able to speak in complete sentences. Skin: No rashes or lesions noted Neuro: Patient oriented x3 Extremities: Normal to inspection, + straight leg right side [facility] Medical History (Updated 09/05/24 @ 08:56 by Cheryl Harding PA-C) History of rectal abscess Depression with anxiety Difficulty swallowing Epigastric pain syndrome Chronic right shoulder pain Spinal stenosis of lumbosacral region with radiculopathy Vitamin D deficiency Osteomyelitis of toe of right foot Chronic kidney disease, stage 5 Chronic low back pain Pericardial effusion Diabetes mellitus with retinopathy Diabetes mellitus with diabetic nephropathy, with long-term current use of insulin Dyslipidemia Diabetic gastroparesis associated with type 2 diabetes mellitus Celiac disease Diabetic neuropathy associated with type 2 diabetes mellitus Non-toxic multinodular goiter Hypertension Renal calculi Gastroparesis Hypercholesterolemia Peripheral vascular disease Surgical History (Updated 05/10/24 @ 23:51 by Shereen Cortes MD) Hx of BKA History of lumbar discectomy Status post amputation of lesser toe of right foot S/P laparoscopic sleeve gastrectomy Hx of colonoscopy History of below-knee amputation (~06/28/17) History of lobectomy of thyroid (~03/25/15) History of esophagogastroduodenoscopy (EGD) (~09/26/13) History of repair of ACL (~2004) History of skin graft (~1993) Family History Father Hypertension Diabetes Mother No problems noted. Sister Mental health disorder Social History Household Members: Spouse Housing: Apartment Do you presently have visiting nurse or other home services: No Alcohol intake: former Comment: refuses alarm Patient Tobacco Use Status: Never used Tobacco e-Cigarette/Vaping Use: Never Used service: No Current occupational status: disabled Cognitive needs: No Hearing needs: No Vision needs: No Review of Systems Const All systems reviewed & are unremarkable except as noted in HPI and below Physical Exam Vital Signs: Last Vital Signs Pulse 77 09/05/24 08:30 BP 112/74 09/05/24 08:30 Pulse Ox 97 09/05/24 08:30 Oxygen Delivery Method Room Air 09/05/24 08:30 Assessment & Plan Assessment & Plan (1) Chalazion left upper eyelid: Code(s): H00.14 - Chalazion left upper eyelid Plan: For the suspected sty, warm compresses are recommended to alleviate the blockage, reducing inflammation and discomfort. In the event of worsening symptoms consistent with bacterial conjunctivitis, erythromycin ointment has been prescribed as a precautionary measure. Patient was informed and verbally consented to the use of an ambient scribe for clinic note documentation during this visit. (2) Sciatica: Code(s): M54.30 - Sciatica, unspecified side Qualifiers: Laterality: right Qualified Code(s): M54.31 - Sciatica, right side Plan: For the patient's back pain suspected to be sciatica, a short course of prednisone is prescribed to decrease inflammatory response, with an emphasis on careful blood glucose management due to the patient?s existing type 2 diabetes. The patient should continue following up with his back specialist for comprehensive management of his chronic pain and post-surgical complications. Medications: New erythromycin Apply to left eye 4 times a day while awake 0.5 inches ophthalmic (eye) QID 3.5 grams 0RF prednisone take 3 tablets daily 10 mg PO DIRECTED 5 days 15 tabs 0RF Coding Level of Care Code Est Pt Level 4 (62043) Diagnoses Chalazion left upper eyelid H00.14 Sciatica of right side M54.31 Laterality: right
[2024-09-05 08:30] VITALS: BP 112/74; PULSE 77; O2SAT 97
== END 2024-09-05 09:19 | disposition home or self-care (01) ==
PROVIDERS: PCP Internal Medicine; Visit Provider Physician Assistant
DX: H00.14 Chalazion left upper eyelid (principal); M54.31 Sciatica, right side

== ENCOUNTER → 2024-09-05 08:04 | Outpatient (BNVA) | payer OTHER, SELFPAY | PROVIDERS: PCP Internal Medicine; Visit Provider Physician Assistant | DX: H00.14 Chalazion left upper eyelid (principal); M54.31 Sciatica, right side | CPT/HCPCS: 99212 ==

== ENCOUNTER 2024-10-20 09:31 | Outpatient (REF) | payer OTHER, SELFPAY ==
--- NOTE | ~2024-10-20 | XR_ITS ---
CLINICAL HISTORY: M54.50 - Low back pain, unspecified 5 views bilateral hips. Single AP pelvis. Comparison: None Findings: No fractures, subluxations or dislocations. Normal congruency of the hip joints. Mild sclerosis along the iliac border of both sacroiliac joints without ankylosis. No bony arthritic changes. Calcifications vas deferens. Normal bone mineralization. Probable prosthesis base of the penis Impression: 1. No acute fractures malalignment or significant bony arthritic changes. This document has been electronically signed by: Chaparro Hill MD on 10/20/2024 11:43:12
--- NOTE | ~2024-10-20 | XR_ITS ---
CLINICAL HISTORY: M54.50 - Low back pain, unspecified 3 views lumbar spine Comparison: None Findings: No fractures or spondylolisthesis. Anterior lateral bridging osteophytes L1-L2 and L3. Degenerative facet arthropathy L3 through L5. Disc space narrowing and discogenic changes L2-L3 level. Pedicles and transverse processes intact. Lordotic curvature is preserved. Normal bone mineralization. Normal soft tissues. There is mild sclerosis along the iliac border of the SI joints [id number]-[id number]-vijy-left. Impression: 1. Spondylosis without spondylolisthesis. Sclerosis iliac side both sacroiliac joints This document has been electronically signed by: Chaparro Hill MD on 10/20/2024 11:41:25
--- OUTSIDE RECORDS SUMMARY | 2024-10-20 10:57 | XMS_ITS | Clinical Summary ---
Author Organization [employer] Address [address] [facility] [address] [address] [place] [address] Care Team Providers Care Chemical Radiation Technician Name Role Phone Unavailable Primary Care Provider [...] topic Meningococcal Vaccine Aged Out No pamela maida eligible based on patient's age to complete [...]
--- OUTSIDE RECORDS SUMMARY | 2024-10-20 10:57 | XMS_ITS | Clinical Summary ---
Author Organization [address] [facility] Address [address] [place] [address] Phone Care Team Providers Care Evs Manager Name Role Phone Shereen Cortes MD [...] Admin Instructions. Active blood-glucose meter,continuous (Dexcom G7 Auricular Acupuncturist) misc 1 Each by Does not apply [...] DAILY FOR 3 MONTHS Active blood-glucose sensor (multiBIND biotec G7 Sensor) device Box = Kit = [...] wound of foot, complicated 08/31/2023 Severe obesity ([facility] V24, [facility] V28) 2023 Diabetes ([facility] V24, [facility] V28) 08/31/2023 ESRD (end stage renal disease) ([facility] V24, [facility] V28) 01/25/2023 Septic discitis of lumbar region [...] in the future. Hypertension 08/10/2021 Diabetic retinopathy ([facility] [place]24, [facility] V28) 01/06/2021 Type 2 diabetes mellitus wit h eye manifestations ([facility] V24, [facility] V28) 01/06/2021 Diabetic neuropathy ([facility] V24, [facility] V28) 0 01/06/2021 Diabetic nephropathy ([facility] V24, [facility] V28) 01/06/2021 Osteoarthritis 01/06/2021 Celiac disease 01/06/2021 Chronic kidney disease (CKD) , stage III (moderate) ([facility] V24, [facility] V28) 01/06/2021 Gastroparesis 01/06/2021 Hyperlipidemia 01/06/2021 Multinodular goiter (nontoxic) 01/06/2021 Renal calculi 01/06/2021 Erectile dysfunction 01/06/2021 Inguinal hernia 01/06/2021 Overview (04/04/2024): bilateral Eating disorder 01/05/2021 S/P BKA (below knee amputati on), left ([facility] V24, [facility] V28) 01/05/2021 Overview (04/04/2024): 06/28/17, uses prosthetic leg CECIL on CPAP 08/05/2020 Overview (04/04/2024): SMS treatment polysomnogram 09/10/2021. AHI 280; BMI 40. Interpretation: Sleep apnea peers controlled at CPAP pressure of 20. There were periodic leg mid minutes of uncertain clinical significance. Type 2 diabetes mellitus ([facility] V24, [facility] V 28) 09/04/2005 Essential hypertension, benign 08/17/2005 Peripheral artery disease ([facility] V24) 08/17/19 06 Gout, unspecified 08/17/2005 Immunizations [...] HISTORICAL BELOW KNEE AMP ESOPHAGOGASTRODUODENOSCOPY 09/26/2013 PROCEDURE: OH ESOPHAGOGASTRODUODENOSCOPY TRANSORAL DIAGNOSTIC OTHER SURGICAL HISTORY 03/25/2015 PROCEDURE: HISTORY OTHER; COMMENT: thyroid lobectomy OTHER SURGICAL HISTORY 2004 PROCEDURE: HISTORY OTHER; COMMENT: ACL repair OTHER SURGICAL HISTORY 10/05/2021 PROCEDURE: OH LAMNOTMY INCL W/DCMPRSN NRV ROOT 1 INTRSPC LUMBR; COMMENT: Left L2-3 minimally invasive discectomy, Dr. Carmichael OTHER SURGICAL HISTORY 11/11/2022 PROCEDURE: OH I&D BELOW FASCIA FOOT MULTIPLE AREAS OTHER SURGICAL HISTORY 11/11/2022 Right PROCEDURE: OH AMPUTATION METATARSAL W/TOE SINGLE; COMMENT: right, fourth transmetatarsal OTHER SURGICAL HISTORY 11/16/2022 PROCEDURE: OH INCISION BONE CORTEX FOOT; COMMENT: fourth metatarsal OTHER SURGICAL HISTORY 11/16/2022 Right PROCEDURE: OH SECONDARY CLOSURE SURG WOUND/DEHSN XTNSV/COMP; COMMENT: right foot Medical History Medical History Date Comments Celiac disease 01/06/2021 DX:Celiac diseas e CKD (chronic kidney disease) stage 3, GFR 30-59 ml/min ([facility] V24, [facility] V28) 01/06/2021 DX:CKD (chronic kidney disea se) stage 3, GFR 30-59 ml/min ([facility]) Class 3 severe obesity due t o excess calories with serious comorbidity and body mass index (BMI) of 45.0 to 49.9 in adult 08/05/2020 DX:Class 3 severe obesity du e to excess calories with serious comorbidity and body mass index (BMI) of 45.0 to 49.9 in adult (HCC) Diabetic nephropathy ([facility] V24, [facility] V28) 01/06/2021 DX:Diabetic nephropathy (HCC ) Diabetic neuropathy ([facility] V24, [facility] V28) 01/06/2021 DX:Diabetic neuropathy (HCC) Diabetic retinopathy ([facility] V24, [facility] V28) 01/06/2021 DX:Diabetic retinopathy (HCC ) Eating [...] 01/06/2021 DX:Osteoarthriti s Peripheral artery disease ([facility] V24) 08/17/2005 DX:Peripheral artery disease (HCC) Renal calculi 01/06/2021 DX:Renal calculi S/P BKA (below knee amputati on), left ([facility] V24, [facility] V28) 01/05/2021 DX:S/P BKA (below knee ampu tation), left ([facility]); COMMENT: 06/28/17, uses prosthetic leg Type 2 diabetes mellitus wit h eye manifestations ([facility] V24, [facility] V28) 01/06/2021 DX:Type 2 diabetes mellitus with eye manifestations (HCC) 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 ([facility] V24, [facility] V28) 09/04/2005 DX: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 (HCC) Type 2 diabetes mellitus wit h renal manifestations ([facility] V24, [facility] V28) 01/06/2021 DX:Type 2 diabetes mellitus with renal manifestations (HCC) Type 2 diabetes mellitus wit h vascular disease ([facility] V24, [facility] V28) 01/06/2021 DX:Type 2 diabetes mellitus with [...] MAINTENANCE Final Result * Hemoglobin A1c (10/29/2022) [facility] Hemoglobin A1C 5.8 <=6.5 % Blood Venous blood specimen / Unknown Result [facility] Provider LAB BLOOD ORDERABLES Elba l Result * Lipid panel (10/29/2022) [facility] LDL/HDL Ratio 3 0 - 4 Triglycerides 55 0 - 150 mg/dL Cholesterol 125 0 - 200 mg/dL HDL 51 >=40 mg/dL LDL Cholesterol 63 0 - 100 mg/dL Blood Venous blood specimen / Unknown Result [facility] Provider LAB BLOOD ORDERABLES Elba l Result * Urine Albumin Creatinine Ratio (04/23/2021) [facility] Urine Albumin Creatinine Ratio abstracted Result [facility] Provider HEALTH MAINTENANCE Final Result * Hepatitis C Screening (09/13/2000) [facility] Hepatitis C Screening abstracted Result [facility] Provider HEALTH MAINTENANCE Final Result from Last 3 Months or Most Recently Relevant to Health Maintenance Insurance [facility] MEDICARE Member Subscriber Plan / Payer (Ef fective 2021-Present) Name:Moustapha Ruiz Sr. Relation to Subscriber:Self Name:Moustapha Ruiz Sr. Payer ID:[id number] Group ID:[id number] Type:Not on file Address: [place] [address] [id number] Care Teams Evs Manager Relationship Specialty Start Date End Date Shereen Cortes MD [address] [facility] [place] [address] PCP - General Internal Medicine 08/10/21
--- OUTSIDE RECORDS SUMMARY | 2024-10-20 10:57 | XMS_ITS | Encounter Summary ---
Author Organization [facility] Address [address] [place] [address] Phone Care Team Providers Care Community Planner Name Role Phone Malou Cortes MD Primary Care Provider [phone] Reason for Visit * Reason Comments Med Refill Encounter Details Date Type Department Care Team (Late st Contact Info) Description 07/29/2022 Refill [facility] [address] [place] [id number] Rafael Shah MD Social History Tobacco Use [...] on filedocumented in this encounter Care Teams Community Planner Relationship Specialty Start Date End Date Malou Cortes MD [address] [place] [address] PCP - General 07/07/20 documented as of this encounter
--- OUTSIDE RECORDS SUMMARY | 2024-10-20 10:57 | XMS_ITS | Clinical Summary ---
Author Organization [facility] Address [address] [place] [address] Phone Care Team Providers Care Physiotherapist'S Assistant Name Role Phone Malou Cortes MD Primary Care Provider +1- [phone] Allergies Active Allergy Reactions Criticality Noted Date [...] 1 (one) time each day Active Multiple Vitamins-Bremer als (CENTRUM SILVER 50+MEN PO) Take 1 [...] 24 025 Active ergocalciferol (Drisdol) 1.25 MG (91251 UT) capsule Take 1 capsule (50,000 Units [...] [place] [address] [place] [address] Mary Conti RN 10/02/2024 Treatment [facility] [address] [facility] [address] [place] [address] Gualberto Ruiz MD End stage renal disease; Dependence on renal dialysis 09/12/2024 Refill [facility] [address] [place] [address] Gualberto Ruiz MD 08/21/2024 Treatment [facility] [place] [id number] [facility] [address] [place] [address] Gualberto Ruiz MD from Last 3 Months [...] [facility] Comment:Volume of distributi on estimated from [place] and [place] formula Creatinine renal clearance 8.2(L) [...] Resu lt - Final Performing Organization Address [facility] Co de Phone Number [facility] [address] [place] [address] * LIH (10/02/2024 3:00 AM EDT) Only the most recent of4 resultswithin the time period is included. Lipemia Normal Normal [facility] Icterus Normal Normal [facility] Hemolysis Normal Normal [facility] 10/02/2024 3:00 AM EDT 10/03/2024 3:10 PM EDT us Gualberto Ruiz MD LAB [id number] ICITED RESULTS Final Result Performing Organization Address [facility] Co de Phone Number [facility] [address] [place] [address] * Glucose, urine, 24 hour (10/02/2024 3:00 AM EDT) Glucose 24 HR Dial 1,111 mg/dL [facility] 10/02/2024 3:00 AM EDT 10/03/2024 3:15 PM EDT us Gualberto Ruiz MD LAB URINE ORDERABLES Final Resul t Performing Organization Address [facility] Co de Phone Number [facility] [address] [place] [address] * Calcium Phosphorus Product, Adjusted (09/25/2024 3:00 AM EDT) Only the most recent of3 resultswithin the time period is included. Pathologist [facility] Albumin 3.7 3.6 - 5.4 g/dL [facility] Calcium 9.0 8.6 - 10.3 mg/dL [facility] Phosphorus, Serum 5.0 2.5 - 5.0 mg/dL [facility] Ca*PO4 45.0 <55.0 mg2/dL2 [facility] Calcium, Adjusted Total 9.2 8.6 - 10.3 mg/dL [facility] CA*PO4 CORRCTD 46.0 <55.0 mg2/dL2 [facility] 09/25/2024 3:00 AM EDT 09/26/2024 1:25 PM EDT us Gualberto Ruiz MD LAB [id number] ICITED RESULTS Final Result Performing Organization Address City/[facility]/ZIP Co de Phone Number [facility] [address] [place] [address] * Hepatitis B Surface Ag w/Reflex Confirmation (09/25/2024 3:00 AM EDT) Only the most recent of3 resultswithin the time period is included. [facility] Hep B Surface Antigen Negative Negative [facility] 09/25/2024 3:00 AM EDT 09/26/2024 1:25 PM EDT us Gualberto Ruiz MD LAB BLOOD ORDERABLES Final Resul t Performing Organization Address City/[facility]/ZIP Co de Phone Number [facility] [address] [place] [address] * (ABNORMAL) TSAT (09/25/2024 3:00 AM EDT) Only the most recent of3 resultswithin the time period is included. Pathologist [facility] Iron 62(L) 65 - 175 ug/dL [facility] Transferrin 136(L) 215 - 365 mg/dL [facility] TIBC 190(L) 211 - 406 ug/dL [facility] Iron Saturation (TSat) 33 22 - 52 % [facility] 09/25/2024 3:00 AM EDT 09/26/2024 1:25 PM EDT us Gualberto Ruiz MD LAB BLOOD ORDERABLES Final Resul t Performing Organization Address City/[facility]/ZIP Co de Phone Number [facility] [address] [place] [address] * Reticulocytes (09/25/2024 3:00 AM EDT) Pathologist [facility] Reticulocyte 1.3 0.5 - 1.8 % [facility] Retic Ct Pct 33.4 28.2 - 35.7 pg [facility] 09/25/2024 3:00 AM EDT 09/26/2024 1:14 PM EDT us Gualberto Ruiz MD LAB BLOOD ORDERABLES Final Resul t Performing Organization Address [facility] Co de Phone Number [facility] [address] [place] [address] * (ABNORMAL) CBC and Differential (09/25/2024 3:00 AM EDT) Only the most recent of3 resultswithin the time period is included. Pathologist [facility] DIFFERENTIAL MANUAL, 2 Not Indicated [facility] [place] [...] ORDERABLES Final Resul t Performing Organization Address City/[facility] Co de Phone Number [facility] [address] [place] [address] * (ABNORMAL) BUN (09/25/2024 3:00 AM EDT) Only the most recent of3 resultswithin the time period is included. BUN 38(H) 7 - 25 mg/dL [facility] 09/25/2024 3:00 AM EDT 09/26/2024 1:25 PM EDT us Gualberto Ruiz MD LAB BLOOD ORDERABLES Final Resul t Performing Organization Address [facility] de Phone Number [facility] [address] [place] [address] * ALT (09/25/2024 3:00 AM EDT) Only the most recent of3 resultswithin the time period is included. ALT (SGPT) 22 10 - 49 U/L [facility] 09/25/2024 3:00 AM EDT 09/26/2024 1:25 PM EDT us Gualberto Ruiz MD LAB BLOOD ORDERABLES Final Resul t Performing Organization Address [facility] de Phone Number [facility] [address] [place] [address] * AST (09/25/2024 3:00 AM EDT) Only the most recent of3 resultswithin the time period is included. AST (SGOT) 12 <34 U/L [facility] 09/25/2024 3:00 AM EDT 09/26/2024 1:25 PM EDT us Gualberto Ruiz MD LAB BLOOD ORDERABLES Final Resul t Performing Organization Address [facility] de Phone Number [facility] [address] [place] [address] * Protein, total (09/25/2024 3:00 AM EDT) Only the most recent of3 resultswithin the time period is included. Total Protein 6.9 6.4 - 8.9 g/dL [facility] 09/25/2024 3:00 AM EDT 09/26/2024 1:25 PM EDT us Gualberto Ruiz MD LAB BLOOD ORDERABLES Final Resul t Performing Organization Address [facility] de Phone Number [facility] [address] [place] [address] * Alkaline phosphatase (09/25/2024 3:00 AM EDT) Only the most recent of3 resultswithin the time period is included. Alkaline Phosphatase 108 46 - 116 U/L [facility] 09/25/2024 3:00 AM EDT 09/26/2024 1:25 PM EDT us Gualberto Ruiz MD LAB BLOOD ORDERABLES Final Resul t Performing Organization Address [facility] de Phone Number [facility] [address] [place] [address] * PTH, Intact (09/25/2024 3:00 AM EDT) [...] ORDERABLES Final Resul t Performing Organization Address [facility] de Phone Number [facility] [address] [place] [address] * (ABNORMAL) Magnesium (09/25/2024 3:00 AM EDT) Only the most recent of3 resultswithin the time period is included. Magnesium 1.8(L) 1.9 - 2.7 mg/dL [facility] 09/25/2024 3:00 AM EDT 09/26/2024 1:25 PM EDT us Gualberto Ruiz MD LAB BLOOD ORDERABLES Final Resul t Performing Organization Address [facility] de Phone Number [facility] [address] [place] [address] * Lactate dehydrogenase (09/25/2024 3:00 AM EDT) Only the most recent of3 resultswithin the time period is included. LDH 177 120 - 246 U/L [facility] 09/25/2024 3:00 AM EDT 09/26/2024 1:25 PM EDT us Gualberto Ruiz MD LAB BLOOD ORDERABLES Final Resul t Performing Organization Address [facility] de Phone Number [facility] [address] [place] [address] * Hemoglobin A1c (09/25/2024 3:00 AM EDT) [...] ORDERABLES Final Resul t Performing Organization Address [facility] de Phone Number [facility] [address] [place] [address] * (ABNORMAL) Glucose, random (09/25/2024 3:00 AM EDT) Only the most recent of3 resultswithin the time period is included. Glucose 204(H) 74 - 109 mg/dL [facility] 09/25/2024 3:00 AM EDT 09/26/2024 1:25 PM EDT us Gualberto Ruiz MD LAB BLOOD ORDERABLES Final Resul t Performing Organization Address [facility] de Phone Number [facility] [address] [place] [address] * (ABNORMAL) Ferritin (09/25/2024 3:00 AM EDT) Only the most recent of3 resultswithin the time period is included. Ferritin 569(H) 22 - 322 ng/mL [facility] 09/25/2024 3:00 AM EDT 09/26/2024 1:25 PM EDT Result Yary Ruiz MD LAB BLOOD ORDERABLES Final Resul t Performing Organization Address [facility] de Phone Number [facility] [address] [place] [address] * (ABNORMAL) Creatinine, serum (09/25/2024 3:00 AM EDT) Only the most recent of3 resultswithin the time period is included. Creatinine 4.56(H) 0.70 - 1.30 mg/dL [facility] 09/25/2024 3:00 AM EDT 09/26/2024 1:25 PM EDT Result Yary Ruiz MD LAB BLOOD ORDERABLES Final Resul t Performing Organization Address City/[facility] Co de Phone Number [facility] [address] [place] [address] * (ABNORMAL) Bilirubin, total (09/25/2024 3:00 AM EDT) Only the most recent of3 resultswithin the time period is included. Total Bilirubin 0.2(L) 0.3 - 1.2 mg/dL [facility] 09/25/2024 3:00 AM EDT 09/26/2024 1:25 PM EDT Gualberto Ruiz MD LAB BLOOD ORDERABLES Final Resul t Performing Organization Address [facility] de Phone Number [facility] [address] [place] [address] * (ABNORMAL) Lipid panel (09/25/2024 3:00 AM [...] ORDERABLES Final Resul t Performing Organization Address [facility] de Phone Number [facility] [address] [place] [address] * (ABNORMAL) Electrolyte panel (09/25/2024 3:00 AM [...] ORDERABLES Final Resul t Performing Organization Address [facility] de Phone Number [facility] [address] [place] [address] from Last 3 Months Insurance [facility] ([id number]) [facility] ([id number]) Care Teams Physiotherapist'S Assistant Relationship Specialty Start Date End Date Malou Cortes MD [address] [place] [address] PCP - General 07/07/20
--- OUTSIDE RECORDS SUMMARY | 2024-10-20 10:57 | XMS_ITS | Encounter Summary ---
Author Organization [facility] Address [address] [place] [address] Phone Care Team Providers Care Bacon De Rinder Name Role Phone Malou Cortes MD Primary Care Provider +1- [phone] Encounter Details Date Type Department Care Team (Late st Contact Info) Description 12/08/2022 Telephone [facility] [address] [place] [address] Shruti Chi Social History Tobacco [...] can be done for this PT. Ambreen: [phone] documented in this encounter Plan of Treatment Not on file documented as of this encounter Visit Diagnoses Not on filedocumented in this encounter Care Teams Bacon De Rinder Relationship Specialty Start Date End Date Malou Cortes MD [address] [place] [address] PCP - General 07/07/20 documented as of this encounter
--- OUTSIDE RECORDS SUMMARY | 2024-10-20 10:57 | XMS_ITS | Encounter Summary ---
Author Organization [facility] Address [address] [place] [address] Phone Care Team Providers Care Historical Archeologist Name Role Phone Malou Cortes MD Primary Care Provider +1- [phone] Reason for Visit * Reason Comments Med Refill Encounter Details Date Type Department Care Team (Late st Contact Info) Description 08/06/2020 Refill [facility] [address] [place] [id number] Catalino Mancia MD Social History Tobacco Use [...] on filedocumented in this encounter Care Teams Historical Archeologist Relationship Specialty Start Date End Date Malou Cortes MD [facility] [place] [address] PCP - General 07/07/20 documented as of this encounter
--- OUTSIDE RECORDS SUMMARY | 2024-10-20 10:57 | XMS_ITS | Encounter Summary ---
Author Organization [employer] [facility] Address [address] [facility] [address] [place] [address] Care Team Providers Care Supervisor [employer]rection [employer] Name Role Phone Unavailable Primary Care Provider [...]
--- OUTSIDE RECORDS SUMMARY | 2024-10-20 10:57 | XMS_ITS | Data Portability ---
Author Organization [facility] [place] - [facility] Address [address] [place], [place] [address] Care Team Providers Care Sex Crimes Detective Name Role Phone BRITTNEY FROST Primary Care Provider [phone] HIM [facility] OTHER Assessment No assessment recorded. Plan of Treatment Reminders Order Date Submit Date Provider Last Modified By Organization Details Last Modified Time Details Appointments None recorded. Lab rapid strep group A, throat [address], [phone] 3 18:31:39 rapid SARS CoV 2 Ag, QL IA, respiratory specimen [address], [address] [place] [address], [id number] 3 18:31:39 rapid flu (A+B) [address], [address] [place] [address], [phone] 3 18:31:39 Referral None recorded. Procedures None recorded. Surgeries None recorded. Imaging None recorded. Medication Orders None recorded. Patient TargetsNo targets recorded. Patient InstructionsNo instructions recorded. Reason for Referral None Reported. Results Created Date Observation Date Name Description Value Unit Range Abnormal Flag Note LastModifiedBy Organization Detail LastModifiedTime 04/08/2004/08/2023 rapid flu (A+B) Flu negati ve Not Available [facility] ed [address] [place] [address], [phone] 04/08/2023 18:31:21 04/08/2004/08/2023 rapid SARS CoV 2 Ag, QL IA, respi rator y speci men rapid SARS CoV 2 Ag, QL IA, respiratory specimen negati ve Not Available [facility] ed [address] [place] [address], [phone] 04/08/2023 18:31:20 04/08/20 23 04/08/2023 rapid strep group A, throa t Strep negati ve Not Available Main - [facility] ed [address] [place] [address], [phone] 04/08/2023 18:31:18 Result Notes None recorded. Medical Equipment None Reported. Allergies Allergen ID Allergen Name Allergen Category Reaction Reaction Severity Criticality Documentation Date Start Date Code Code System Note Provider Name and Address Organization Details Recorded Time 9012 vancomyci n medicatio n Not available Not available Not available 04/24/2024 48451 RxNorm Not Available [facility] - production 03:48:28 [...] /min 93 mm[Hg] 54 mm[Hg] Not Available [facility] - production 3 18:30:42 Date Recorded Oxygen saturation Oxygen saturation in Arterial blood by Pulse oximetry Heart rate Body temperature Respiratory rate Systolic blood pressure Diastolic blood pressure Provider Name and Address Organization Details Last Updated DateTime 3 95 % 95 % 85 /min 97.8 [degF] 20 /min 172 mm[Hg] 87 mm[Hg] Not Available [facility] - production 3 15:38:56 Social History None recorded. Functional Status None recorded. Mental Status None recorded. Family History Nothing Reported. Medical History No medical history recorded. Past Encounters Encounter ID Performer Location Encounter Start Date Encounter Closed Date Diagnosis/Indication Diagnosis SNOMED-CT Code Diagnosis ICD10 Code Diagnosis Note [id number] Milan Ma MD Main - [facility] [address] [place] [phone] 09/13/2022 15:38:50 09/15/2022 09:13:27 Acute kidney injury 11655878 N17.9 This 57-year-ol d male was hospitaliz ed a month ago with CHF and stage 3 CKD. He called today because of increasing dyspnea and weakness. His BUN was 55 and his creatinine was 4.9. I recommende d that he go to the [facility] ER for evaluation of his acute renal failure. The patient agreed with this plan. [id number] Tangela Cerrato MD Main - [facility] [address] [place] [phone] 04/08/2023 18:30:34 04/12/2023 10:52:07 Sore throat 572745867 J02.9 Health Concerns Section Related Observation LastModified by Organization Detai ls LastModified Time None Recorded Concern Status LastModified by Organization Details LastModified Time None Recorded Advance Directives Directive None Recorded Payers Encounter Date Sequence Insurance Name Policy Number Policy Castro Covered Member ID Castro Member ID Guarantor Name 09/13/2022 1 [facility] - DOS PRIOR TO 2022 - DUAL ELIGIBLE (MEDICARE REPLACEMENT/ADV ANTAGE - HMO) Moustapha Ruiz [id number] Moustapha Ruiz 04/08/2023 1 [facility] - DOS ON OR AFTER 2022 - DUAL ELIGIBLE - SENIOR LIVING OPTIONS AND ONE CARE (MEDICARE REPLACEMENT/ADV ANTAGE - HMO) Moustapha Ruiz [id number] Moustapha Ruiz Notes Date Note Type Note Provider Name and Address Organization Details Recorded Time 09/13/2022 text/html [facility] Nursing Assessment: Patient Reports: Cough; Shortness of breath with exertion Chief Complaints: Syncope/Dizziness/Lig htheadedness PMH: Diabetes, Other Allergies: Vancomycin Comments: Member calling with request for [facility] for eval for SOB and fluid retention x 1 month +fatigue. s/p hospitalization 1 month ago HX CKD VSS per [facility] nurse with member. No acute distress. Discuss if symptoms progress to seek 911-verblaize understanding. Verify member name/ ..................... ..................... ..................... ..................... ..................... ..................... ............... Hansard Reporter Note From Lily Quinones: [facility] Hansard Reporter Nettie Joni Sc6 dispatched to a red for a 57 yom C/O SOB. Upon arrival, the pt was ambulatory w/ obvious SOB, 1-2 word dyspnea. He was awake and alert, LARA X4, not in acute distress. He stated that he was discharged from [facility] 1 month prior, and that he had become increasingly short of breath on exertion since then. He stated he had stage 3 CKD, and was taking 20 mg torsemide daily. Rales heard in lower mancera. CMP acquired-results in inst[facility]. [facility] consulted; due to critically high BUN and creatinine levels, it was recommended to the pt that he seek hospitalization immediately. The pt refused 911 transport, stating his would drive him to [facility]. Hansard Reporter Allergies: Vancomycin ..................... ..................... ..................... ..................... ..................... ..................... ............... Disposition: Fulfilled Milan Ma MD [address], [place], [phone], [employer] 09/13/2022 15:43:25 04/08/2023 text/html HPI: mbr with complaints of sore throat, mbr was recently intubated for an abdominal procedure states ever since he had this done he increasingly developed sore throat, states feeling as if he had streptococcal pharyngitis. requesting [facility] visit. Protocol Used: Sore Throat Protocol-Based Disposition: Consider [facility], [facility], or PCP visit within 24 [...] ..................... ..................... ..................... ..................... ..................... ..................... ............... Hansard Reporter Note From Virgil Perez: Pt reports sore throat after intubation, on Tuesday for abd ax. States that since then the sore throat has been getting worse and states that today he has been feeling well. States that he had HD done and after has been tired. On scene vs taken and COVID and flu done. [facility] was called and cleared. Hansard Reporter Allergies: Vancomycin ..................... ..................... ..................... ..................... ..................... ..................... ............... Disposition: Fulfilled Tangela Cerrato MD [address], [place], [phone], BENJI - JUAN ANTONIO VITALE 07/06/2023 18:36:26
== END 2024-10-20 09:32 | disposition home or self-care (01) ==
LOC: HO.HMGCX 09:31
PROVIDERS: PCP Internal Medicine; Visit Provider Family Medicine
DX: M54.50 Low back pain, unspecified (principal); M25.552 Pain in left hip; M25.551 Pain in right hip
CPT/HCPCS: 72100; 73521; 99212

== ENCOUNTER 2024-10-20 09:31 | Outpatient (AMB) | payer OTHER, SELFPAY ==
--- OUTSIDE RECORDS SUMMARY | 2024-10-20 09:33 | XMS_ITS | Continuity of Care Document ---
Author Organization [facility] Address [address] [place] [address] [address] [place] [address]- Care Team Providers Care Chart Collector Name Role Phone Sebastian CASTRO, Shereen Banerjee Primary Care Physician Encounter [facility] [place](s): 09/19/24 - 10/19/[address] [place], [place] [address] Encounter Type: Triage Allergies, Adverse [...] influenza virus vaccine, inactivated 03/26/16 Jeremiah rded [id number] 12y+ bivalent booster vax 06/14/22 Recorded zoster vaccine, inactivated 10/13/21 Recorded SARS-CoV-2 mRNA ([id number]) vax 10/13/21 Recorded SARS-CoV-2 (COVID-19) mRNA BNT-162b2 [...] Quantity: 30.0 Unit: tablet Repeat number: 1 amoxicillin 250 mg oral capsule 1 capsule = 250 mg, By Mouth, Daily, for 4 week(s), # 28 capsule, 1 Refills, Acute 11/23/24 9:04:00 AM EDT, 09/28/24 9:04:00 AM EDT, [facility]/pharmacy #[id number], Partial fill upon patient request if the prescription is for a schedule II opioid drug., 180, cm, 09/26/24 15:55:00 EDT, Height, 116, kg, 09/13/24 21:22:00 EDT, Dry Weight Start Date: 09/28/24 Stop Date: 11/23/24 Status: Ordered Quantity: 28.0 Unit: capsule Repeat number: 2 atorvastatin 10 mg oral tablet 1 tablet = 10 mg, By Mouth, Daily at bedtime, # 30 tablet, 0 Refills, Maintenance, 08/12/22 2:18:00 PM EST, Partial fill upon patient request if the prescription is for a schedule II opioid drug. Start Date: 08/12/22 Status: Ordered Quantity: 30.0 Unit: tablet Repeat number: 1 calcitriol 0.25 mcg oral capsule = 0.5 mcg, By Mouth, Every week, # 4 capsule, 0 Refills, Maintenance, 07/02/24 1:56:00 PM EST, Capsule, [facility], Partial fill upon [...] 12:19:00 PM EDT, Route to Pharmacy Electronically, [facility]/pharmacy #[id number], Partial fill upon patient request if the prescription is for a schedule II opioid drug., 173, cm, 01/22/23 0:28:00 EDT, Height, 132.7, kg, 01/20/23 10:50:00 EDT, Dry Weight Start Date: 01/22/23 Stop Date: 02/21/23 Status: Ordered Quantity: 60.0 Unit: tablet Repeat number: 1 chlorhexidine topical 0.12% liquid See Instructions, MRSA decolonization - initiate twice a month x 6 months Chlorhexadine mouth wash - swish 15mL orally twice daily x 5 days, every other week x 6 months, # 473 mL, 2 Refills, Maintenance, 09/27/24 6:49:00 PM EDT, Liquid, [facility]/pharmacy #[id number], Partial fill upon patient request if the pres cription is for a schedule II opioid drug., MRSA decolonization - initiate twice a month x 6 months; Chlorhexadine mouth wash - swish 15mL orally twice daily x 5 days, every other week x 6 months, 180, cm, 09/26/24 15:55:00 EDT, Height, 116, kg, 09/13/24 21:22:00 EDT, Dry Weight Start Date: 09/27/24 Status: Ordered Quantity: 473.0 Unit: mL Repeat number: 3 DEXCOM G7 SENSOR DEXCOM G7 SENSOR, USE [...] capsule 300 mg, 1, capsule, By Mouth, 2 times a day, Refills 0, Maintenance, 03/14/23 1:29:00 PM EDT, Partial fill upon patient request if the prescription is for a schedule II opioid drug. Start Date: 03/14/23 Status: Ordered Repeat number: 1 Hibiclens 4% soap See Instructions, MRSA decolonization - initiate twice a month x 6 months Hibiclens body wash - usedaily x 5 days, every other week x 6 months, # 960 mL, 2 Refills, Soft Stop, 09/27/24 6:49:00 PM EDT,[facility]/pharmacy #[id number], Partial fill upon patient request if the prescription is for a schedule II opioid drug., MRSA decolonization - initiate twice a month x 6 months; Hibiclens body wash - use daily x5 days, every other week x 6 months, 180, cm, 09/26/24 15:55:00 EDT, Height, 116, kg, 09/13/24 21:22:00 EDT, Dry Weight Start Date: 09/27/24 Status: Ordered Quantity: 960.0 Unit: mL Repeat number: 3 hydrocortisone 2.5% topical cream PLEASE SEE ATTACHED FOR DETAILED DIRECTIONS Start Date: 09/13/24 Status: Ordered Repeat number: 1 insulin glargine 100 units/mL subcutaneous solution = 12 units, Subcutaneous Injection, Daily in AM, # 10 mL, 0 Refills, Maintenance, 07/03/24 10:20:00 AM EST, Injection, [facility], Partial fill upon patient request if the prescription isfor a schedule II opioid drug., 180, cm, 07/02/24 23:59:00 EST, Height, 106.1, kg, 06/22/24 8:30:00EST, Dry Weight Start Date: 07/03/24 Stop Date: 08/02/24 Status: Ordered Quantity: 10.0 Unit: mL Repeat number: 1 insulin isophane human recombinant 100 u/ml subcutaneous injection = 20 units, Subcutaneous Injection, Daily at bedtime, # 10 mL, 0 Refills, Maintenance, 09/17/24 1:08:00 PM EDT, Injection, Partial fill upon patient request if the prescription is for a schedule II opioid drug. Start Date: 09/17/24 Status: Ordered Quantity: 10.0 Unit: mL Repeat number: 1 insulin lispro 100 u/ml subcutaneous injection 2-12 units, Subcutaneous Injection, 3 times a day before meals, << Sliding Scale Comments >> 100 - 149 2 units Call if less than 70 150 - 199 4 units 200 - 249 6 units 250 - 299 8 units 300 - 349 10 units 350 - 399 12 units Call if greater than 400 << Sliding Scale Comments >>, # 3 mL, 0 Refills, Maintenance, 09/17/24 1:08:00 PM EDT, Injection, Partial fill upon patient request if the prescription is for a schedule II opioid drug. Start Date: 09/17/24 Status: Ordered Quantity: 3.0 Unit: mL Repeat number: 1 lidocaine 5% topical film 2 patch, Topically, Daily, remove patches after 12 hours, # 30 patch, 0 Refills, Maintenance, 10/11/24 1:05:00 PM EDT, Film, [facility], Partial fill upon patient request if the prescription is for a schedule II opioid drug., 2 patch Topically Daily,Instr:remove patches after 12 hours,180, cm, 10/11/24 9:04:00 EDT, Height, 113.5, kg, 10/11/24 9:04:00 EDT, Dry Weight Start Date: 10/11/24 Status: Ordered Quantity: 30.0 Unit: patch Repeat number: 1 please fit and measure for right foot diabetic shoe please fit and measure for right foot diabetic shoe, See Instructions, # 1 each, Refills 0, Tot. Refills 0, Maintenance, please measure for right foot diabetic shoe Has left BKA DX diabetes, 08/22/24 7:45:00 AM EST, Supply Start Date: 08/22/24 Status: Ordered Quantity: 1.0 Unit: each Repeat number: 1 sertraline 50 mg oral tablet 1 tablet = 50 mg, By Mouth, Daily, 0 Refills, Maintenance, 06/21/24 7:25:00 PM EST, Partial fill upon patient request if the prescription is for a schedule II opioid drug. Start Date: 06/21/24 Status: Ordered Repeat number: 1 tamsulosin 0.4 mg oral capsule 0.4 mg, 1, capsule, By Mouth, Daily at bedtime, # 30 capsule, Refills 0, Tot. Refills 0, Maintenance, 08/20/22 8:45:00 AM EST, Route to Pharmacy Electronically, [facility], Partial fill upon [...] Repeat number: 1 XL Brava Barrier Strips 29761 XL Brava Barrier Strips 64486, See Instructions, # 40 each, Refills 11, [...] Primary Care Nurse Name: Nadja Helms Position: [facility] Outreach Member Role: Lifetime Consulting Physician Name: Veronica Garibay Position: [facility] Associate Professional Member Role: Lifetime Consulting Provider Address: [address] [facility] [place], [place] [address] Telecom: Name: Elizabeth Garcia RN Position: [facility] RN Member Role: Primary Care Nurse Name: Judson Alarcon RN Position: [facility] RN Member Role: Primary Care Nurse Name: Ira Harris RN Position: [facility] RN Member Role: Primary Care Nurse Name: Sebastian CASTRO , Shereen Banerjee Position: Reference Physician Member Role: PCP Address: [address] [place] [address]- Telecom: Name: Willa Ruiz MD Position: [facility] Renal MD Member Role: Lifetime Consulting Physician Address: [address] [facility] [address] Telecom: Name: Lily Hooper RN Position: [facility] RN Member Role: Lifetime Consulting Physician Name: Dwayne Rollins MD Position: [facility] Renal MD Member Role: Lifetime Consulting Physician Address: [address] [facility] [address] [facility] [address] [facility] [place], [place] [address] Telecom: Name: Kylie Rivera RN Position: [facility] RN Member Role: Primary Care Nurse Name: Tiara Coleman Position: [facility] AMB Nurse Member Role: Lifetime Consulting Physician Name: Donte Clark III, RN Position: [facility] RN Member Role: Primary Care Nurse Name: Meg Willis RN Position: [facility] RN Member Role: Primary Care Nurse Name: Tova Vidales RN Position: [facility] RN Member Role: Primary Care Nurse Name: Nathan Dumont RN Position: [facility] RN Member Role: Primary Care Nurse Name: Chelo Marie RN Position: [facility] RN Member Role: Primary Care Nurse Name: Soto Amador RN Position: [facility] RN Member Role: Primary Care Nurse Name: Blanche Garcia RN Position: [facility] RN Member Role: Primary Care Nurse Name: Mary Conti RN Position: S Outreach Member Role: Lifetime Consulting Physician Name: Rafael Shah MD Position: S Outreach Member Role: Lifetime Consulting Physician Address: [address] [facility] [address] Telecom: Name: Cherie Alcantar RN Position: S RN Member Role: Primary Care Nurse Name: Billie Goddard RN Position: S RN Member Role: Primary Care Nurse Name: Flower Gustafson RN Position: S RN Member Role: Primary Care Nurse Name: Cathi Mancini Position: [facility] RN Member Role: Primary Care Nurse Name: Pietro Miranda MD Position: [facility] Renal MD Member Role: Lifetime Consulting Physician Address: [address] [facility] [address] Telecom: Name: Jessi Armneta RN Position: [facility] RN Member Role: Primary Care Nurse Name: Tori Gould RN Position: [facility] RN Member Role: Primary Care Nurse Name: Charley Cooper RN Position: [facility] RN Member Role: Primary Care Nurse Name: Francis Mccann RN Position: [facility] RN Member Role: Primary Care Nurse Care Team Related Persons Name: SHON MEDINA Insurance Providers Guarantor name: PAKO MEDINA Health Plan Information #: 1 Payer: [facility] [employer] C[employer] Member Number: NA Policy Number: NA Group Number: [id number]
--- OUTSIDE RECORDS SUMMARY | 2024-10-20 09:33 | XMS_ITS | Clinical Summary ---
Author Organization [facility] Address [address] [place] [address] Phone Care Team Providers Care Cio Name Role Phone Shereen Cortes MD Primary [...] Admin Instructions. Active blood-glucose meter,continuous (Dexcom G7 Powder Expert) misc 1 Each by Does not apply [...] DAILY FOR 3 MONTHS Active blood-glucose sensor ([employer]lingo[employer] G7 Sensor) device Box = Kit = [...] Overview (04/04/2024): Last Assessment & Plan: History Bear describes about 1 month of right sided [...] wound of foot, complicated 08/31/2023 Severe obesity ([facility] V24, [facility] V28) 2023 Diabetes ([facility] V24, [facility] V28) 08/31/2023 ESRD (end stage renal disease) ([facility] V24, [facility] V28) 01/25/2023 Septic discitis of lumbar region 08/11/2021 [...] in the future. Hypertension 08/10/2021 Diabetic retinopathy ([facility] [place] [place]24, [facility] [place] V28) 01/06/2021 Type 2 diabetes mellitus wit h eye manifestations ([facility] [place] V24, [facility] [place] V28) 01/06/2021 Diabetic neuropathy ([facility] [place] V24, [facility] [place] V28) 0 01/06/2021 Diabetic nephropathy ([facility] [place] V24, [facility] [place] V28) 01/06/2021 Osteoarthritis 01/06/2021 Celiac disease 01/06/2021 Chronic kidney disease (CKD) , stage III (moderate) ([facility] [place] V24, [facility] [place] V28) 01/06/2021 Gastroparesis 01/06/2021 Hyperlipidemia 01/06/2021 Multinodular goiter (nontoxic) 01/06/2021 Renal calculi 01/06/2021 Erectile dysfunction 01/06/2021 Inguinal hernia 01/06/2021 Overview (04/04/2024): bilateral Eating disorder 01/05/2021 S/P BKA (below knee amputati on), left ([facility] [place] [place] V24, [facility] [place] V28) 01/05/2021 Overview (04/04/2024): 06/28/17, uses prosthetic leg CECIL on CPAP 08/05/2020 Overview (04/04/2024): SMS treatment polysomnogram 09/10/2021. AHI 280; BMI 40. Interpretation: Sleep apnea peers controlled at CPAP pressure of 20. There were periodic leg mid minutes of uncertain clinical significance. Type 2 diabetes mellitus ([facility] [place] [place] V24, [facility] [place] V 28) 09/04/2005 Essential hypertension, benign 08/17/2005 Peripheral artery disease ([facility] [place] [place] V24) 08/17/19 06 Gout, unspecified 08/17/2005 Immunizations Name Administration Dates Next Due Influenza [...] HISTORICAL BELOW KNEE AMP ESOPHAGOGASTRODUODENOSCOPY 09/26/2013 PROCEDURE: MA ESOPHAGOGASTRODUODENOSCOPY TRANSORAL DIAGNOSTIC OTHER SURGICAL HISTORY 03/25/2015 PROCEDURE: HISTORY OTHER; COMMENT: thyroid lobectomy OTHER SURGICAL HISTORY 2004 PROCEDURE: HISTORY OTHER; COMMENT: ACL repair OTHER SURGICAL HISTORY 10/05/2021 PROCEDURE: MA LAMNOTMY INCL W/DCMPRSN NRV ROOT 1 INTRSPC LUMBR; COMMENT: Left L2-3 minimally invasive discectomy, Dr. Carmichael OTHER SURGICAL HISTORY 11/11/2022 PROCEDURE: MA I&D BELOW FASCIA FOOT MULTIPLE AREAS OTHER SURGICAL HISTORY 11/11/2022 Right PROCEDURE: MA AMPUTATION METATARSAL W/TOE SINGLE; COMMENT: right, fourth transmetatarsal OTHER SURGICAL HISTORY 11/16/2022 PROCEDURE: MA INCISION BONE CORTEX FOOT; COMMENT: fourth metatarsal OTHER SURGICAL HISTORY 11/16/2022 Right PROCEDURE: MA SECONDARY CLOSURE SURG WOUND/DEHSN XTNSV/COMP; COMMENT: right foot Medical History Medical History Date Comments Celiac disease 01/06/2021 DX:Celiac diseas e CKD (chronic kidney disease) stage 3, GFR 30-59 ml/min ([facility] V24, [facility] V28) 01/06/2021 DX:CKD (chronic kidney disea se) stage 3, GFR 30-59 ml/min ([facility]) Class 3 severe obesity due t o excess calories with serious comorbidity and body mass index (BMI) of 45.0 to 49.9 in adult 08/05/2020 DX:Class 3 severe obesity du e to excess calories with serious comorbidity and body mass index (BMI) of 45.0 to 49.9 in adult (HCC) Diabetic nephropathy ([facility]/ [facility] V24, [facility] V28) 01/06/2021 DX:Diabetic nephropathy (HCC ) Diabetic neuropathy ([facility] V24, [facility] V28) 01/06/2021 DX:Diabetic neuropathy (HCC) Diabetic retinopathy ([facility]/ [facility] V24, [facility] V28) 01/06/2021 DX:Diabetic retinopathy (HCC ) Eating disorder 01/05/2021 DX:Eating disord er Erectile dysfunction 01/06/2021 DX:Erectile dysfunction Essential hypertension, benign 08/17/2005 D X:Essential hypertension, benign Gastroparesis 01/06/2021 DX:Gastroparesis Gout 08/17/2005 DX:Gout Hyperlipidemia 01/06/2021 DX:Hyperlipidemi a Inguinal hernia 01/06/2021 DX:Inguinal leonard ia; COMMENT: bilateral Multinodular goiter (nontoxic) 01/06/2021 D X:Multinodular goiter (nontoxic) CECIL on CPAP 08/05/2020 DX:CECIL on CPAP Osteoarthritis 01/06/2021 DX:Osteoarthriti s Peripheral artery disease ([facility] [place] V24) 08/17/2005 DX:Peripheral artery disease (HCC) Renal calculi 01/06/2021 DX:Renal calculi S/P BKA (below knee amputati on), left ([facility] V24, [facility] V28) 01/05/2021 DX:S/P BKA (below knee ampu tation), left ([facility]); COMMENT: 06/28/17, uses prosthetic leg Type 2 diabetes mellitus wit h eye manifestations ([facility] V24, [facility] V28) 01/06/2021 DX:Type 2 diabetes mellitus with eye manifestations (HCC) 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 ([facility] V24, [facility] V28) 09/04/2005 DX: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 (HCC) Type 2 diabetes mellitus wit h renal manifestations ([facility] V24, [facility] V28) 01/06/2021 DX:Type 2 diabetes mellitus with renal manifestations (HCC) Type 2 diabetes mellitus wit h vascular disease ([facility] V24, [facility] V28) 01/06/2021 DX:Type 2 diabetes mellitus with vascular [...] BMP Blood Test 10/30/2023 10/29/2022 COVID-19 Vaccine () 02/26/2024 06/14/2022, 10/13/2021, 09/25/2020, Additional history exists Diabetes: Blood Sugar Control Test (HGBA1C) 12/13/2024 06/14/2024, 06/14/2024, 2024, Additional history exists Influenza Vaccine (Season Ended) 2025 06/14/2022, 04/16/2021, 08/12/2020, Additional history exists DTaP,Tdap,and Td Vaccines (2 [...] age to complete this topic Meningococcal B Vaccine Aged Out No l onger eligible based on patient's age to complete this topic RSV Immunization Patients Under 20 months Aged Out No longer eligible based on patient's age to complete this topic Varicella Vaccines Aged Out No longer eligible based on patient's age to complete this topic Procedures Procedure Name Priority Date/Time Associated Diagnosis Comments ANNUAL BMP BLOOD TEST Routine 10/29/2022 HEMOGLOBIN A1C Routine 10/29/2022 LIPID PANEL Routine 10/29/2022 URINE ALBUMIN CREATININE RATIO Routine 04/23/2021 HEPATITIS C SCREENING Routine 09/13/2000 from Last 3 Months or Most Recently Relevant to Health Maintenance Results * Annual BMP Blood Test (10/29/2022) Annual BMP Blood Test abstracted Result [facility] Provider HEALTH MAINTENANCE Final Result * Hemoglobin A1c (10/29/2022) [facility] Hemoglobin A1C 5.8 <=6.5 % Blood Venous blood specimen / Unknown Result [facility] Provider LAB BLOOD ORDERABLES Elba l Result * Lipid panel (10/29/2022) [facility] LDL/HDL Ratio 3 0 - 4 Triglycerides 55 0 - 150 mg/dL Cholesterol 125 0 - 200 mg/dL HDL 51 >=40 mg/dL LDL Cholesterol 63 0 - 100 mg/dL Blood Venous blood specimen / Unknown Result [facility] Provider LAB BLOOD ORDERABLES Elba l Result * Urine Albumin Creatinine Ratio (04/23/2021) [facility] Urine Albumin Creatinine Ratio abstracted Result [facility] Provider HEALTH MAINTENANCE Final Result * Hepatitis C Screening (09/13/2000) [facility] Hepatitis C Screening abstracted Result [facility] Provider HEALTH MAINTENANCE Final Result from Last 3 Months or Most Recently Relevant to Health Maintenance Insurance [facility] MEDIC[facility] Member Subscriber Plan / Payer (Ef fective 2021-Present) Name:Moustapha Ruiz Sr. Relation to Subscriber:Self Name:Moustapha Ruiz Sr. Payer ID:[id number] Group ID:[id number] Type:Not on file Address: [place] [address] [address] [place] [phone] Care Teams Cio Relationship Specialty Start Date End Date Shereen Cortes MD [address] [facility] [place] [address] PCP - General Internal Medicine 08/10/21
--- OUTSIDE RECORDS SUMMARY | 2024-10-20 09:33 | XMS_ITS | Encounter Summary ---
Author Organization [facility] Address [address] [place] [address] Phone Care Team Providers Care Restaurant Lead Name Role Phone Malou Cortes MD Primary Care Provider [phone] Reason for Visit * Reason Comments Med Refill Encounter Details Date Type Department Care Team (Late st Contact Info) Description 07/29/2022 Refill [facility] [address] [place] [id number] Rafael Shah MD Social History Tobacco Use [...] on filedocumented in this encounter Care Teams Restaurant Lead Relationship Specialty Start Date End Date Malou Cortes MD [address] [place] [address] PCP - General 07/07/20 documented as of this encounter
--- OUTSIDE RECORDS SUMMARY | 2024-10-20 09:33 | XMS_ITS | Clinical Summary ---
Author Organization [facility] Address [address] [place] [address] Phone Care Team Providers Care Archivist Military History Name Role Phone Malou Cortes MD Primary Care Provider [phone] Allergies Active Allergy Reactions Criticality Noted Date Comments Cephalexin Other (see comments) 08/29/2020 Metformin Other (see comments) 08/29/2020 Medications gabapentin (NEURONTIN) 600 MG tablet Take 1 tablet by mouth 2 (two) times a day Active Toujeo SoloStar 300 UNIT/ML solution pen-injector INJECT 10 UNITS INTO THE SKIN AT BEDTIME. 09/03/19 22 Active atorvastatin (LIPITOR) 10 MG tablet Take 10 mg by mouth 1 (one) time each day Active tamsulosin (Flomax) 0.4 MG 24 hr capsule Take 0.4 mg by mouth 1 (one) time each day Active Multiple Vitamins-[place] als (CENTRUM SILVER 50+MEN PO) Take 1 tablet by mouth 1 (one) time each day Active bumetanide (BUMEX) 1 MG tablet Take 3 tablets (3 mg total) by mouth in the morning and 3 tablets (3 mg total) in the evening. 540 tablet 3 11/04/19 23 Active NovoLOG FLEXPEN 100 UNIT/ML injection PLEASE SEE ATTACHED FOR DETAILED DIRECTIONS 11/02/19 23 Active D3 Super Strength 50 MCG (2000 UT) capsule Take 1 capsule by mouth 1 (one) time each day 12/11/19 23 Active ketorolac (ACULAR) 0.5 % ophthalmic solution PUT 1 DROP IN LEFT EYE 4 TIMES A DAY 11/20/19 23 Active amLODIPine (NORVASC) 5 MG tablet Take 1 tablet (5 mg total) by mouth 1 (one) time each day 90 tablet 3 12/21/19 24 025 Active ergocalciferol (Drisdol) 1.25 MG (09210 UT) capsule Take 1 capsule (50,000 Units total) by mouth 1 (one) time per week 12 capsule 3 01/10/20 24 025 Active midodrine (PROAMATINE) 5 MG tablet Take 1 tablet (5 mg total) by mouth in the morning and 1 tablet (5 mg total) in the evening and 1 tablet (5 mg total) before bedtime. Hold if SBP is greater than 120.. 270 tablet 1 02/14/20 24 025 Active midodrine (PROAMATINE) 10 MG tablet Take 1 tablet (10 mg total) by mouth every 12 (twelve) hours if needed (take for systolic blood pressure less than 100) 60 tablet 5 05/02/20 24 025 Active sevelamer carbonate (RENVELA) 800 MG tablet Take 2 tablets (1,600 mg total) by mouth 1 (one) time each day Swallow tablet whole; do not crush, break, or chew. 180 tablet 3 05/21/20 24 Active amLODIPine (NORVASC) 10 MG tablet TAKE 1/2 TABLET BY MOUTH ONCE DAILY 45 tablet 7 05/21/20 24 Active allopurinol (ZYLOPRIM) 100 MG tablet TAKE 1 TABLET BY MOUTH EVERY DAY 90 tablet 1 09/13/19 25 Active carvedilol (COREG) 6.25 MG tablet Take 2 tablets (12.5 mg total) by mouth in the morning and 2 tablets (12.5 mg total) in the evening. Take with meals. 180 tablet 3 10/05/19 25 026 Active hydrALAZINE 25 MG tablet Take 3 tablets (75 mg total) by mouth in the morning and 3 tablets (75 mg total) at noon and 3 tablets (75 mg total) in the evening. 270 tablet 3 12/21/19 23 025 Discontinued(Di scontinued by another clinician (does not appear on AVS)) carvedilol (COREG) 6.25 MG tablet TAKE 1 TABLET (6.25 MG TOTAL) BY MOUTH IN THE MORNING AND IN THE EVENING WITH MEALS 180 tablet 1 06/13/20 24 025 Discontinued Active Problems Problem Noted Date Diagnosed Date Severe obesity 10/04/2022 Stage 5 chronic kidney disease 10/04/2022 Hypertension 09/30/2021 Hypertensive disorder 07/28/2021 Stage 3b chronic kidney disease 10/31/2020 Stage 3a chronic kidney disease 08/29/2020 Hypertensive renal disease 08/29/2020 Renal stone 08/29/2020 Hyperkalemia 08/29/2020 Resolved Problems Problem Noted Date Diagnosed Date Resolved Date Diabetes mellitus 07/28/2021 07/28/2021 Multinodular goiter 07/28/2021 07/28/19 Open wound of foot with complication 07/28/2021 07/28/2021 Encounters Date Type Department Care Team Description 10/04/2024 Orders Only [facility] [address] [place] [address] Mary Conti RN 10/02/2024 Treatment [facility] [address] [place] [address] Gualberto Ruiz MD End stage renal disease; Dependence on renal dialysis 09/12/2024 Refill [facility] [address] [place] [address] Gualberto Ruiz MD 08/21/2024 Treatment [facility] [place] [id number] [place] [address] Gualberto Ruiz MD from Last 3 Months Immunizations Immunization Administration Dates Next Due Influenza, Unspecified 08/12/2020 [...] Due Date Last Done Comments Pneumococcal Vaccine: 50+ Ye ars (1 of 2 - PCV) 1986 Hepatitis B Vaccine (1 of 5 - Risk Dialysis 4-dose series) 1987 Colorectal Cancer Screening: Annual FOBT 2016 Colorectal Cancer Screening: Colonoscopy 2016 Colorectal Cancer Screening: Sigmoidoscopy 2016 Diabetes: Ophthalmology Exam 08/12/2024 Diabetes: Pedal Pulse Checked 08/12/2024 Diabetes: Sensory Foot Exam 08/12/2024 Diabetes: Visual Foot Exam 08/12/2024 Diabetes: Hemoglobin A1C 12/25/2024 025, 07/06/2024, 06/14/2024, Additional history exists Influenza Vaccine (Season Ended) 2025 04/16/20 21, 08/12/2020 Procedures Procedure Name Priority Date/Time Associated Diagnosis Comments GLUCOSE, URINE, 24 HOUR Routine 10/02/2024 3:00 AM EDT [facility] (HC) Routine 10/02/2024 3:00 AM EDT PD ADEQUECY BUNDLED Routine 10/02/2024 3 :00 AM EDT HEPATITIS B SURFACE ANTIGEN W/REFL CONFIRM Routine 09/25/2024 3:00 AM EDT TRANSFERRIN SATURATION Routine 3:00 AM EDT MAGNESIUM Routine 09/25/2024 3:00 AM EDT PROTEIN, TOTAL, SERUM Routine 09/25/2024 3:00 AM EDT ELECTROLYTE PANEL Routine 09/25/2024 3:0 0 AM EDT LIH (HC) Routine 09/25/2024 3:00 AM EDT LIPID PANEL Routine 09/25/2024 3:00 AM EDT LACTATE DEHYDROGENASE Routine 09/25/2024 3:00 AM EDT GLUCOSE, RANDOM Routine 09/25/2024 3:00 AM EDT CREATININE, SERUM Routine 09/25/2024 3:0 0 AM EDT BUN Routine 09/25/2024 3:00 AM EDT BILIRUBIN, TOTAL Routine 09/25/2024 3:00 AM EDT AST Routine 09/25/2024 3:00 AM EDT ALT Routine 09/25/2024 3:00 AM EDT ALKALINE PHOSPHATASE Routine 09/25/2024 3:00 AM EDT CALCIUM PHOSPHORUS PRODUCT, ADJUSTED (HC) Routine 09/25/2024 3:00 AM EDT PTH, INTACT Routine 09/25/2024 3:00 AM EDT FERRITIN Routine 09/25/2024 3:00 AM EDT HEMOGLOBIN A1C Routine 09/25/2024 3:00 AM EDT RETICULOCYTES Routine 09/25/2024 3:00 AM EDT CBC AND DIFFERENTIAL Routine 09/25/2024 3:00 AM EDT TRANSFERRIN SATURATION Routine 3:00 AM EDT MAGNESIUM Routine 09/19/2024 3:00 AM EDT PROTEIN, TOTAL, SERUM Routine 09/19/2024 3:00 AM EDT ELECTROLYTE PANEL Routine 09/19/2024 3:0 0 AM EDT GLUCOSE, RANDOM Routine 09/19/2024 3:00 AM EDT LI[facility] (HC) Routine 09/19/2024 3:00 AM EDT CREATININE, SERUM Routine 09/19/2024 3:0 0 AM EDT LACTATE DEHYDROGENASE Routine 09/19/2024 3:00 AM EDT BUN Routine 09/19/2024 3:00 AM EDT AST Routine 09/19/2024 3:00 AM EDT BILIRUBIN, TOTAL Routine 09/19/2024 3:00 AM EDT ALT Routine 09/19/2024 3:00 AM EDT ALKALINE PHOSPHATASE Routine 09/19/2024 3:00 AM EDT CALCIUM PHOSPHORUS PRODUCT, ADJUSTED (HC) Routine 09/19/2024 3:00 AM EDT PTH, INTACT Routine 09/19/2024 3:00 AM EDT HEPATITIS B SURFACE ANTIGEN W/REFL CONFIRM Routine 09/19/2024 3:00 AM EDT FERRITIN Routine 09/19/2024 3:00 AM EDT CBC AND DIFFERENTIAL Routine 09/19/2024 3:00 AM EDT HEPATITIS B SURFACE ANTIGEN W/REFL CONFIRM Routine [...] AND DIFFERENTIAL Routine 08/09/2024 3:00 AM EST from Last 3 Months Results * (ABNORMAL) PD Adequecy Bundled (10/02/2024 3:00 AM EDT) Urine Volume 1,650 mL [facility] Collection Interval, Ur 1,440 min [facility] Creatinine, Urine 49 mg/dL [facility] Comment:See 24 Hour Urine Cr eatinine for Reference Range in mg/24hr Urea Nitrogen, Ur 336.2 mg/dL [facility] Comment:See 24 Hour Urine Ur ea Nitrogen for Reference Range in g/24hr Patient Height (FT) 173.0 cm [facility] Dry Weight 116.0 kg [facility] Total Drain Volume 24 Hr 14,171 mL [facility] Creatinine 5.22(H) 0.70 - 1.30 mg/dL [facility] BUN 49(H) 7 - 25 mg/dL [facility] Creat, 24 HR Dial 2.98 mg/dL [facility] Chayo Creat, 24 Hr Dial 2.86 mg/dL [facility] Urea Nitrogen, 24HR Dial 38 mg/dL [facility] Body Surface Area 2.27 m2 [facility] Comment:Body surface area es timated from Charo and Charo formula Total Body Water 54.1 L [facility] Comment:Volume of distributi on estimated from [place] and [place] formula Creatinine renal clearance 8.2(L) 85.0 - 125.0 mL/min/1. 73m2 [facility] Kt/V, Residual 1.46 [facility] Dial KT/V 1.42 [facility] Kt/V, Total 2.88 [facility] Comment: The K/DOQI 2006 recommendations for [...] or equal to 1.7. Weekly Residual CrCl 82.6 L/wk/1.73 m2 [facility] Weekly Dialysate CrCl 41.4 L/wk/1.73 m2 [facility] Weekly Residual GFR 71.5 L/wk/1.73 m2 [facility] Comment: Calculated by the arithmetic mean of urea and creatinine clearance(Guideline 6 of KDOQI Adequacy 2000) Weekly Total CRCL 112.9 L/wk/1.73 m2 [facility] Comment:Calculated by adding the GFR and Weekly Dialysate CrCl PNA 96.9 g/day [facility] NPNA (PD) 1.0 g/kg/day [facility] Comment: Providers should strive to achieve an nPNA of greater than or equal to 0.9 g/kg/day. nPNA valid only if protein loss <15 g/day. 10/02/2024 3:00 AM EDT 10/03/2024 2:41 PM EDT us Gualberto Ruiz MD LAB BLOOD ORDERABLES Edited Resu lt - Final Performing Organization Address [facility] Co de Phone Number [facility] [address] [place] [address] * LIH (10/02/2024 3:00 AM EDT) Only the most recent of4 resultswithin the time period is included. Lipemia Normal Normal [facility] Icterus Normal Normal [facility] Hemolysis Normal Normal [facility] 10/02/2024 3:00 AM EDT 10/03/2024 3:10 PM EDT us Gualberto Ruiz MD LAB [id number] ICITED RESULTS Final Result Performing Organization Address [facility] Co de Phone Number [facility] [address] [place] [address] * Glucose, urine, 24 hour (10/02/2024 3:00 AM EDT) Glucose 24 HR Dial 1,111 mg/dL [facility] 10/02/2024 3:00 AM EDT 10/03/2024 3:15 PM EDT us Gualberto Ruiz MD LAB URINE ORDERABLES Final Resul t Performing Organization Address [facility] Co de Phone Number [facility] [address] [place] [address] * Calcium Phosphorus Product, Adjusted (09/25/2024 3:00 AM EDT) Only the most recent of3 resultswithin the time period is included. Pathologist [facility] Albumin 3.7 3.6 - 5.4 g/dL [facility] Calcium 9.0 8.6 - 10.3 mg/dL [facility] Phosphorus, Serum 5.0 2.5 - 5.0 mg/dL [facility] Ca*PO4 45.0 <55.0 mg2/dL2 [facility] Calcium, Adjusted Total 9.2 8.6 - 10.3 mg/dL [facility] CA*PO4 CORRCTD 46.0 <55.0 mg2/dL2 [facility] 09/25/2024 3:00 AM EDT 09/26/2024 1:25 PM EDT us Gualberto Ruiz MD LAB [id number] ICITED RESULTS Final Result Performing Organization Address City/[facility]/ZIP Co de Phone Number [facility] [address] [place] [address] * Hepatitis B Surface Ag w/Reflex Confirmation (09/25/2024 3:00 AM EDT) Only the most recent of3 resultswithin the time period is included. [facility] Hep B Surface Antigen Negative Negative [facility] 09/25/2024 3:00 AM EDT 09/26/2024 1:25 PM EDT us Gualberto Ruiz MD LAB BLOOD ORDERABLES Final Resul t Performing Organization Address City/[facility]/ZIP Co de Phone Number [facility] [address] [place] [address] * (ABNORMAL) TSAT (09/25/2024 3:00 AM EDT) Only the most recent of3 resultswithin the time period is included. Pathologist [facility] Iron 62(L) 65 - 175 ug/dL [facility] Transferrin 136(L) 215 - 365 mg/dL [facility] TIBC 190(L) 211 - 406 ug/dL [facility] Iron Saturation (TSat) 33 22 - 52 % [facility] 09/25/2024 3:00 AM EDT 09/26/2024 1:25 PM EDT us Gualberto Ruiz MD LAB BLOOD ORDERABLES Final Resul t Performing Organization Address City/[facility]/ZIP Co de Phone Number [facility] [address] [place] [address] * Reticulocytes (09/25/2024 3:00 AM EDT) Pathologist [facility] Reticulocyte 1.3 0.5 - 1.8 % [facility] Retic Ct Pct 33.4 28.2 - 35.7 pg [facility] 09/25/2024 3:00 AM EDT 09/26/2024 1:14 PM EDT us Gualberto Ruiz MD LAB BLOOD ORDERABLES Final Resul t Performing Organization Address [facility] Co de Phone Number [facility] [address] [place] [address] * (ABNORMAL) CBC and Differential (09/25/2024 3:00 AM EDT) Only the most recent of3 resultswithin the time period is included. Pathologist [facility] DIFFERENTIAL MANUAL, 2 Not Indicated [facility] White Blood Cells 7.8 4.2 - 9.1 K/uL [facility] RBC 3.83(L) 4.63 - 6.08 M/uL [facility] Hgb 11.4(L) 13.7 - 17.5 g/dL [facility] Hemoglobin x 3 34.2(L) 41.1 - 52.5 g/dL [facility] Hematocrit 35.2(L) 40.1 - 51.0 % [facility] MCV 91.9 79.0 - 92.2 fL [facility] MCH 29.8 25.7 - 32.2 pg [facility] MCHC 32.4 32.3 - 36.5 g/dL [facility] Platelets 160(L) 163 - 337 K/uL [facility] RDW 14.7(H) 11.6 - 14.4 % [facility] Neutrophils Relative 76.8(H) 34.0 - 67.9 % [facility] Lymphocytes Relative 14.5(L) 21.8 - 53.1 % [facility] Monocytes 6.2 5.3 - 12.2 % [facility] Eosinophils Relative 1.4 0.8 - 7.0 % [facility] Basophils Relative 0.6 0.2 - 1.2 % [facility] Immature Granulocytes 0.5 0.0 - 1.0 % [facility] 09/25/2024 3:00 AM EDT 09/26/2024 1:14 PM EDT us Gualberto Ruiz MD LAB BLOOD ORDERABLES Final Resul t Performing Organization Address City/[facility] Co de Phone Number [facility] [address] [place] [address] * (ABNORMAL) BUN (09/25/2024 3:00 AM EDT) Only the most recent of3 resultswithin the time period is included. BUN 38(H) 7 - 25 mg/dL [facility] 09/25/2024 3:00 AM EDT 09/26/2024 1:25 PM EDT us Gualberto Ruiz MD LAB BLOOD ORDERABLES Final Resul t Performing Organization Address [facility] de Phone Number [facility] [address] [place] [address] * ALT (09/25/2024 3:00 AM EDT) Only the most recent of3 resultswithin the time period is included. ALT (SGPT) 22 10 - 49 U/L [facility] 09/25/2024 3:00 AM EDT 09/26/2024 1:25 PM EDT us Gualberto Ruiz MD LAB BLOOD ORDERABLES Final Resul t Performing Organization Address [facility] de Phone Number [facility] [address] [place] [address] * AST (09/25/2024 3:00 AM EDT) Only the most recent of3 resultswithin the time period is included. AST (SGOT) 12 <34 U/L [facility] 09/25/2024 3:00 AM EDT 09/26/2024 1:25 PM EDT us Gualberto Ruiz MD LAB BLOOD ORDERABLES Final Resul t Performing Organization Address [facility] de Phone Number [facility] [address] [place] [address] * Protein, total (09/25/2024 3:00 AM EDT) Only the most recent of3 resultswithin the time period is included. Total Protein 6.9 6.4 - 8.9 g/dL [facility] 09/25/2024 3:00 AM EDT 09/26/2024 1:25 PM EDT us Gualberto Ruiz MD LAB BLOOD ORDERABLES Final Resul t Performing Organization Address [facility] de Phone Number [facility] [address] [place] [address] * Alkaline phosphatase (09/25/2024 3:00 AM EDT) Only the most recent of3 resultswithin the time period is included. Alkaline Phosphatase 108 46 - 116 U/L [facility] 09/25/2024 3:00 AM EDT 09/26/2024 1:25 PM EDT us Gualberto Ruiz MD LAB BLOOD ORDERABLES Final Resul t Performing Organization Address [facility] de Phone Number [facility] [address] [place] [address] * PTH, Intact (09/25/2024 3:00 AM EDT) Only the most recent of3 resultswithin the time period is included. PTH, Intact 238 160 - 721 pg/mL [facility] Comment: Suggested (KDIGO) ESRD maintenance range is two to nine times the upper normal limit (80.1 pg/mL) for the laboratory. 09/25/2024 3:00 AM EDT 09/26/2024 1:25 PM EDT us Gualberto Ruiz MD LAB BLOOD ORDERABLES Final Resul t Performing Organization Address [facility] de Phone Number [facility] [address] [place] [address] * (ABNORMAL) Magnesium (09/25/2024 3:00 AM EDT) Only the most recent of3 resultswithin the time period is included. Magnesium 1.8(L) 1.9 - 2.7 mg/dL [facility] 09/25/2024 3:00 AM EDT 09/26/2024 1:25 PM EDT us Gualberto Ruiz MD LAB BLOOD ORDERABLES Final Resul t Performing Organization Address [facility] de Phone Number [facility] [address] [place] [address] * Lactate dehydrogenase (09/25/2024 3:00 AM EDT) Only the most recent of3 resultswithin the time period is included. LDH 177 120 - 246 U/L [facility] 09/25/2024 3:00 AM EDT 09/26/2024 1:25 PM EDT us Gualberto Ruiz MD LAB BLOOD ORDERABLES Final Resul t Performing Organization Address [facility] de Phone Number [facility] [address] [place] [address] * Hemoglobin A1c (09/25/2024 3:00 AM EDT) Hemoglobin A1C 5.6 <5.7 % [facility] Comment: Methodology: Enzymatic HbA1c (NGSP %) ?Suggested Diagnosis >6.4% ? Diabetic 5.7-6.4% ?Pre-Diabetic <5.7% ? Non-Diabetic Diabetic Glucose Control Evaluation: Therapeutic action suggested at >8.0% ADA recommends a glycemic goal of <7.0% 09/25/2024 3:00 AM EDT 09/26/2024 1:14 PM EDT Result Yary Ruiz MD LAB BLOOD ORDERABLES Final Resul t Performing Organization Address [facility] Co de Phone Number [facility] [address] [place] [address] * (ABNORMAL) Glucose, random (09/25/2024 3:00 AM EDT) Only the most recent of3 resultswithin the time period is included. Glucose 204(H) 74 - 109 mg/dL [facility] 09/25/2024 3:00 AM EDT 09/26/2024 1:25 PM EDT us Gualberto Ruiz MD LAB BLOOD ORDERABLES Final Resul t Performing Organization Address [facility] de Phone Number [facility] [address] [place] [address] * (ABNORMAL) Ferritin (09/25/2024 3:00 AM EDT) Only the most recent of3 resultswithin the time period is included. Ferritin 569(H) 22 - 322 ng/mL [facility] 09/25/2024 3:00 AM EDT 09/26/2024 1:25 PM EDT Result Yary Ruiz MD LAB BLOOD ORDERABLES Final Resul t Performing Organization Address [facility] de Phone Number [facility] [address] [place] [address] * (ABNORMAL) Creatinine, serum (09/25/2024 3:00 AM EDT) Only the most recent of3 resultswithin the time period is included. Creatinine 4.56(H) 0.70 - 1.30 mg/dL [facility] 09/25/2024 3:00 AM EDT 09/26/2024 1:25 PM EDT Result Yary Ruiz MD LAB BLOOD ORDERABLES Final Resul t Performing Organization Address [place]/[facility] Co de Phone Number [facility] [address] [place] [address] * (ABNORMAL) Bilirubin, total (09/25/2024 3:00 AM EDT) Only the most recent of3 resultswithin the time period is included. Total Bilirubin 0.2(L) 0.3 - 1.2 mg/dL [facility] 09/25/2024 3:00 AM EDT 09/26/2024 1:25 PM EDT Gualberto Ruiz MD LAB BLOOD ORDERABLES Final Resul t Performing Organization Address [facility] de Phone Number [facility] [address] [place] [address] * (ABNORMAL) Lipid panel (09/25/2024 3:00 AM EDT) Cholesterol 118 <200 mg/dL [facility] Comment: Optimal: ?<200 Borderline: ? 200-239 Higher Risk: ?>239 Triglycerides 68 <150 mg/dL [facility] Comment: Optimal: ?<150 Borderline High: ??150-199 High: ? 200-499 Very High: ?>499 HDL 49(A) >59 mg/dL [facility] Comment: Desirable: ?>59 Higher Risk: ?<40 LDL-Calc 55 <100 mg/dL [facility] Comment: Optimal: ?<100 Above Optimal: ?100-129 Borderline High: ??130-159 High: ? 160-189 Very High: ?>189 VLDL Cholesterol Sukh 14 <30 mg/dL [facility] Comment: Optimal: ?<30 Borderline High: ??30-39 High: ? 40-99 Very High: ?>99 Chol/HDL Ratio 2.4 <3.3 [facility] Comment: Optimal: ?<3.3 Higher Risk: ?>6.2 09/25/2024 3:00 AM EDT 09/26/2024 1:25 PM EDT Gualberto Ruiz MD LAB BLOOD ORDERABLES Final Resul t Performing Organization Address [facility] de Phone Number [facility] [address] [place] [address] * (ABNORMAL) Electrolyte panel (09/25/2024 3:00 AM EDT) Only the most recent of3 resultswithin the time period is included. Sodium 135(L) 136 - 145 mEq/L [facility] Potassium 4.6 3.4 - 5.0 mEq/L [facility] Chloride 101 98 - 107 mEq/L [facility] Bicarbonate (CO2) 22 21 - 31 mEq/L [facility] Anion Gap 12 3 - 14 mEq/L [facility] 09/25/2024 3:00 AM EDT 09/26/2024 1:25 PM EDT Gualberto Ruiz MD LAB BLOOD ORDERABLES Final Resul t Performing Organization Address [facility] de Phone Number [facility] [address] [place] [address] from Last 3 Months Insurance [facility] ([id number]) [facility] ([id number]) Care Teams Archivist Military History Relationship Specialty Start Date End Date Malou Cortes MD [address] [place] [address] PCP - General 07/07/20
--- OUTSIDE RECORDS SUMMARY | 2024-10-20 09:33 | XMS_ITS | Encounter Summary ---
Author Organization [facility] Address [address] [place] [address] Phone Care Team Providers Care Chief Writer Name Role Phone Malou Cortes MD Primary Care Provider +1- [phone] Reason for Visit * Reason Comments Med Refill Encounter Details Date Type Department Care Team (Late st Contact Info) Description 08/06/2020 Refill [facility] [address] [place] [id number] Catalino Mancia MD Social History Tobacco Use [...] on filedocumented in this encounter Care Teams Chief Writer Relationship Specialty Start Date End Date Malou Cortes MD [facility] [place] [address] PCP - General 07/07/20 documented as of this encounter
--- OUTSIDE RECORDS SUMMARY | 2024-10-20 09:33 | XMS_ITS | Encounter Summary ---
Author Organization [facility] Address [address] [place] [address] Phone Care Team Providers Care Mat Weaver Name Role Phone Malou Cortes MD Primary Care Provider +1- [phone] Encounter Details Date Type Department Care Team (Late st Contact Info) Description 12/08/2022 Telephone [facility] [address] [place] [address] Shruti Chi Social History Tobacco [...] can be done for this PT. Ambreen: [phone] documented in this encounter Plan of Treatment Not on file documented as of this encounter Visit Diagnoses Not on filedocumented in this encounter Care Teams Mat Weaver Relationship Specialty Start Date End Date Malou Cortes MD [address] [place] [id number] PCP - General 07/07/20 documented as of this encounter
[2024-10-20 09:59] VITALS: BP 128/86; PULSE 80; RESP 17; TEMP 36.6; O2SAT 98; BMI 36.1
--- NOTE | 2024-10-20 09:59 | MHC.OFFWIV ---
Intake Vital Signs 10/20/24 09:59 Height 5 ft 11 in Weight 259 lb BMI 36.1 BP 128/86 Blood Pressure Location Lt brachial Position Sitting Respiration 17 Pulse 80 Pulse Source Pulse Oximeter Temp 97.9 F Pulse Oximetry (%) 98 Oxygen Delivery Method Room Air Intake Visit Reasons: EP- LSP pain, fell at home Last week Intake Note: Pt is here today took a fall at home last week: went to [facility]: no improvement Patient Tobacco Use Status: Never used Tobacco Allergies cephalexin [CEPHALEXIN] Allergy (Intermediate, Verified 10/20/24 10:11) UNABLE TO MOVE ENTIRE BODY, chills and fever, nausea, chills, fever, and nausea metformin [METFORMIN] Adverse Reaction (Intermediate, Verified 10/20/24 10:11) ADVISED NOT TO TAKE ANYMORE,SHAKEY,STOMACH PAINS, stomach upset, stomach upset HPI EP- LSP pain, fell at home Last week HPI Details Patient presents with ongoing low back pain. Had a fall last week and went to [facility] on 10/11/2024. There were concerns that his back pain was secondary to renal stones and [facility] note says ?no recent falls or strokes to the back? Abdominal CT was unremarkable except for possible omental/intraperitoneal focal fat infarction in the right upper quadrant, venous duplex ultrasound was also negative for DVT. Patient was given lidocaine patches and discharged Patient says he had fallen 2 days prior to his hospital visit. Slipped on a wet spot and fell onto left hip and left side. Now has primarily low back pain with radiation into right hip. Patient's workup at the hospital did not include x-rays of hips pelvis or low back. He did have abdominal CT scan as they had presumed back pain could be due to renal stones [facility] Medical History (Updated 10/20/24 @ 10:47 by Tomas Lee MD) History of rectal abscess Depression with anxiety Difficulty swallowing Epigastric pain syndrome Chronic right shoulder pain Spinal stenosis of lumbosacral region with radiculopathy Vitamin D deficiency Osteomyelitis of toe of right foot Chronic kidney disease, stage 5 Chronic low back pain Pericardial effusion Diabetes mellitus with retinopathy Diabetes mellitus with diabetic nephropathy, with long-term current use of insulin Dyslipidemia Diabetic gastroparesis associated with type 2 diabetes mellitus Celiac disease Diabetic neuropathy associated with type 2 diabetes mellitus Non-toxic multinodular goiter Hypertension Renal calculi Gastroparesis Hypercholesterolemia Peripheral vascular disease Surgical History (Updated 05/10/24 @ 23:51 by Shereen Cortes MD) Hx of BKA History of lumbar discectomy Status post amputation of lesser toe of right foot S/P laparoscopic sleeve gastrectomy Hx of colonoscopy History of below-knee amputation (~06/28/17) History of lobectomy of thyroid (~03/25/15) History of esophagogastroduodenoscopy (EGD) (~09/26/13) History of repair of ACL (~2004) History of skin graft (~1993) Family History Father Hypertension Diabetes Mother No problems noted. Sister Mental health disorder Social History Household Members: Spouse Housing: Apartment Do you presently have visiting nurse or other home services: No Alcohol intake: former Comment: refuses alarm Patient Tobacco Use Status: Never used Tobacco e-Cigarette/Vaping Use: Never Used service: No Current occupational status: disabled Cognitive needs: No Hearing needs: No Vision needs: No Review of Systems Const Denies chills, Denies fatigue, Denies fever(s), Denies headache(s) and Denies weakness ENT Denies dizziness and Denies headache(s) Card Denies chest pain, Denies lightheadedness, Denies dyspnea and Denies other (Palpitations) Resp Denies cough, Denies dyspnea, Denies wheezing and Denies other ( shortness of breath) Musc Details: See HPI Denies numbness and Denies tingling Neuro Denies dizziness, Denies headache(s), Denies numbness, Denies tingling, Denies paresthesias and Denies weakness Psych Denies anxiety and Denies depression Endo Denies fatigue Aller/Immun Denies wheezing Physical Exam Vital Signs: Last Vital Signs Temp 97.9 F 10/20/24 09:59 Pulse 80 10/20/24 09:59 Resp 17 10/20/24 09:59 BP 128/86 10/20/24 09:59 Pulse Ox 98 10/20/24 09:59 Oxygen Delivery Method Room Air 10/20/24 09:59 BMI result Body Mass Index 36.1 Const General: no acute distress and well developed Nutritional Appearance: well nourished Orientation/consciousness: patient oriented x3 HEENT Head: Yes normocephalic and Yes atraumatic Eyes General: appearance normal, both eyes and all related structures Pupils: Equal, round and reactive pupils present EOM: EOMs intact bilaterally Resp Effort & Inspection: normal respiratory effort Back/Spine/Pelvis Other: Pain at low back and posterior pelvis with right hip pain on range of motion. Neuro Other: Mildly unsteady gait and walks with limp as he has left leg prosthetic. General: patient oriented x3 and gait normal Cranial nerves: Yes Equal, round and reactive pupils present Psych Affect: normal affect Assessment & Plan Assessment & Plan (1) Low back pain: Code(s): M54.50 - Low back pain, unspecified (2) Left hip pain: Code(s): M25.552 - Pain in left hip (3) Right hip pain: Code(s): M25.551 - Pain in right hip Plan Severe low back and posterior pelvic pain radiating primarily into right hip but also left hip X-rays without obvious/displaced fracture. Awaiting final read. Appears to be contusions and muscle strain; acute on chronic back pain Will give him a 3 day course of Percocet Will give him muscle relaxers for muscle strain Topical NSAIDs. Avoiding systemic NSAIDs due to renal failure. Ice/heat Ultimately I think he will benefit from some physical therapy as well. Ordered. Follow-up with your PCP Orders: Orders XR lumbar spine 2-3V Today M54.50 - Low back pain, unspecified XR pelvis 1-2V Today M54.50 - Low back pain, unspecified XR hip LT min 2V Today M54.50 - Low back pain, unspecified PT Evaluation and Treatment Today M54.50 - Low back pain, unspecified Medications: New diclofenac sodium 1% (Arthritis Pain (diclofenac)) apply to single knee, ankle, foot; for foot includes sole/toes/top of foot 4 grams topical BID 30 days 200 grams 2RF M54.50 - Low back pain, unspecified cyclobenzaprine 10 mg PO BID 7 days PRN 14 tabs 0RF muscle spasm M54.50 - Low back pain, unspecified oxycodone-acetaminophen 5-325 mg (Percocet) Partial Fill upon patient request. 1 tab PO BID 3 days PRN 6 tabs 0RF pain M54.50 - Low back pain, unspecified Coding Level of Care Code Est Pt Level 3 (59444) Diagnoses Low back pain M54.50 Left hip pain M25.552 Right hip pain M25.551
== END 2024-10-20 11:47 | disposition home or self-care (01) ==
LOC: HO.HMCWIC 09:31
PROVIDERS: PCP Internal Medicine; Visit Provider Family Medicine
DX: M54.50 Low back pain, unspecified (principal); M25.552 Pain in left hip; M25.551 Pain in right hip

== ENCOUNTER → 2024-10-20 10:58 | Outpatient (BNV) | payer OTHER, SELFPAY | PROVIDERS: PCP Internal Medicine; Visit Provider Radiology Diagnostic Radiology | DX: M47.898 Other spondylosis, sacral and sacrococcygeal region (principal); M46.1 Sacroiliitis, not elsewhere classified; M54.50 Low back pain, unspecified | CPT/HCPCS: 72100; 73521 ==

== ENCOUNTER 2024-10-26 10:41 | Outpatient (AMB) | payer OTHER, SELFPAY ==
--- NOTE | 2024-10-26 11:32 | AM.OFFWIN_ITS ---
Intake Vital Signs 10/26/24 11:35 Weight 260 lb BP 122/84 Blood Pressure Location Rt brachial Position Sitting Pulse 74 Pulse Source Pulse Oximeter Pulse Oximetry (%) 97 Oxygen Delivery Method Room Air Intake Visit Reasons: EP-lt ribcage pain from a fall Intake Note: Patient here for left sided rib pain after a fall the other day and is having difficulty taking a deep breath. Patient Tobacco Use Status: Never used Tobacco Allergies cephalexin [CEPHALEXIN] Allergy (Intermediate, Verified 10/26/24 11:35) UNABLE TO MOVE ENTIRE BODY, chills and fever, nausea, chills, fever, and nausea metformin [METFORMIN] Adverse Reaction (Intermediate, Verified 10/26/24 11:35) ADVISED NOT TO TAKE ANYMORE,SHAKEY,STOMACH PAINS, stomach upset, stomach u pset Medication List - Last Reconciled 10/26/24 by Portillo Goins MD acetaminophen mg PO allopurinol 100 mg PO DAILY atorvastatin 10 mg PO DAILY blood sugar diagnostic As directed bumetanide 1 mg PO BID carvedilol 6.25 mg PO Q12H cyclobenzaprine 10 mg PO BID PRN 7 days diclofenac sodium 1% (Arthritis Pain (diclofenac)) 4 grams topical BID 30 days docusate sodium 100 mg PO DAILY flash glucose sensor (FreeStyle Juanito 14 Day Sensor kit) As directed gabapentin 300 mg PO DAILY hydrocortisone 2.5% appl topical insulin aspart U-100 (Novolog FlexPen U-100 Insulin aspart) subcut insulin glargine (Lantus Solostar U-100 Insulin) units subcut [Left ofrub-kgp-kavg prosthetic As directed NS] [Mobility scooter As directed] omeprazole 40 mg PO DAILY oxycodone-acetaminophen 5-325 mg (Percocet) 1 tab PO Q8H PRN 7 days pen needle, diabetic (BD Ultra-Fine Short Pen Needle) As directed sertraline 50 mg PO DAILY tamsulosin mg PO DAILY Do you need a note to return to daycare/school/sports/work: No HPI EP-lt ribcage pain from a fall HPI Details History - The patient is a 59-year-old male pres enting with rib pain and difficulty breathing after a recent fall. - Patient experienced a fall on Tuesday of the current week, landing on the left ribcage against the pavement. - Immediate symptoms following the fall include pain in the ribcage area and difficulty taking a deep breath, which worsens with coughing. - Patient also reported a previous fall a few days before this incident, which resulted in back pain radiating to the right knee. An x-ray conducted at the time was reported to show no fractures - Chronic conditions currently being man aged include Type 2 Diabetes Mellitus with insulin dependency, hypertension, and hyperlipidemia. - Patient's medication regimen includes allopurinol, atorvastatin, carvedilol, a diuretic (water pill), diclofenac topical for pain, omeprazole, sertraline, and tamsulosin. Problem List - Fall with back pain following the prev ious fall - Rib contusion or possible fracture - Type 2 Diabetes Mellitus - Hypertension - Hyperlipidemia Patient Instructions - Continue taking deep breaths to expand the lungs despite discomfort. - An x-ray will be conducted to examine the ribs for fractures. - Use any prescribed pain medication as recommended. Percocet t.i.d. p.r.n. 21 tablets sent - Follow diabetes management, including administering 12 units of long-acting insulin in the morning and adjusting short-scale doses as needed. Review of Systems - General: No fever no chills - Neurological: No headaches no dizziness - Ear nose throat: No sore throat no hearing difficulty no ear pain - Cardiovascular: No syncope, no chest pain, no palpitations - Gastrointestinal: No nausea vomiting or diarrhea Physical Exam General: No acute distress HEENT: No acute findings Neck: Supple Respiratory system: Painful to take a deep breath, tender over left posterior lower rib with pressure Gastrointestinal: No pain Extremities: No new findings TUCKPOINTER CLEANER CAULKER: Alert awake oriented x3 motor sensory intact Skin: Normal turgor [facility] Medical History History of rectal abscess Depression with anxiety Difficulty swallowing Epigastric pain syndrome Chronic right shoulder pain Spinal stenosis of lumbosacral region with radiculopathy Vitamin D deficiency Osteomyelitis of toe of right foot Chronic kidney disease, stage 5 Chronic low back pain Pericardial effusion Diabetes mellitus with retinopathy Diabetes mellitus with diabetic nephropathy, with long-term current use of insulin Dyslipidemia Diabetic gastroparesis associated with type 2 diabetes mellitus Celiac disease Diabetic neuropathy associated with type 2 diabetes mellitus Non-toxic multinodular goiter Hypertension Renal calculi Gastroparesis Hypercholesterolemia Peripheral vascular disease Surgical History Hx of BKA History of lumbar discectomy Status post amputation of lesser toe of right foot S/P laparoscopic sleeve gastrectomy Hx of colonoscopy History of below-knee amputation (~06/28/17) History of lobectomy of thyroid (~03/25/15) History of esophagogastroduodenoscopy (EGD) (~09/26/13) History of repair of ACL (~2004) History of skin graft (~1993) Family History Father Hypertension Diabetes Mother No problems noted. Sister Mental health disorder Social History Household Members: Spouse Housing: Apartment Do you presently have visiting nurse or other home services: No Alcohol intake: former Comment: refuses alarm Patient Tobacco Use Status: Never used Tobacco e-Cigarette/Vaping Use: Never Used service: No Current occupational status: disabled Cognitive needs: No Hearing needs: No Vision needs: No Physical Exam Vital Signs: Last Vital Signs Pulse 74 10/26/24 11:35 BP 122/84 10/26/24 11:35 Pulse Ox 97 10/26/24 11:35 Oxygen Delivery Method Room Air 10/26/24 11:35 Assessment & Plan Assessment & Plan (1) Chest injury: Code(s): S29.9XXA - Unspecified injury of thorax, initial encounter Qualifiers: Encounter type: initial encounter Qualified Code(s): S29.9XXA - Unspecified injury of thorax, initial encounter (2) Pleuritic chest pain: Code(s): R07.81 - Pleurodynia (3) Recurrent falls while walking: Code(s): R29.6 - Repeated falls (4) Insulin dependent type 2 diabetes mellitus: Code(s): E11.9 - Type 2 diabetes mellitus without complications; Z79.4 - shelter (current) use of insulin Plan History - The patient is a 59-year-old male presenting with rib pain and difficulty breathing after a recent fall. - Patient experienced a fall on Tuesday of the current week, landing on the left ribcage against the pavement. - Immediate symptoms following the fall include pain in the ribcage area and difficulty taking a deep breath, which worsens with coughing. - Patient also reported a previous fall a few days before this incident, which resulted in back pain radiating to the right knee. An x-ray conducted at the time was reported to show no fractures - Chronic conditions currently being managed include Type 2 Diabetes Mellitus with insulin dependency, hypertension, and hyperlipidemia. - Patient's medication regimen includes allopurinol, atorvastatin, carvedilol, a diuretic (water pill), diclofenac topical for pain, omeprazole, sertraline, and tamsulosin. Problem List - Fall with back pain following the previous fall - Rib contusion or possible fracture - Type 2 Diabetes Mellitus - Hypertension - Hyperlipidemia Patient Instructions - Continue taking deep breaths to expand the lungs despite discomfort. - An x-ray will be conducted to examine the ribs for fractures. - Use any prescribed pain medication as recommended. Percocet t.i.d. p.r.n. 21 tablets sent - Follow diabetes management, including administering 12 units of long-acting insulin in the morning and adjusting short-scale doses as needed. Orders: Orders XR ribs LT min 3V w CXR1V Today S29.9XXA - Unspecified injury of thorax, initial encounter Medications: Changed From oxycodone-acetaminophen 5-325 mg (Percocet) Partial Fill upon patient request. 1 tab PO BID 3 days PRN 6 tabs 0RF pain M54.50 - Low back pain, unspecified To oxycodone-acetaminophen 5-325 mg (Percocet) Partial Fill upon patient request. 1 tab PO Q8H 7 days PRN 21 tabs 0RF pain M54.50 - Low back pain, unspecified Coding Level of Care Code Est Pt Level 4 (96463) Diagnoses Chest injury, initial encounter S29.9XXA Encounter type: initial encounter Pleuritic chest pain R07.81 Recurrent falls while walking R29.6 Insulin dependent type 2 diabetes mellitus E11.9; Z79.4
[2024-10-26 11:35] VITALS: BP 122/84; PULSE 74; O2SAT 97
--- OUTSIDE RECORDS SUMMARY | 2024-10-26 11:47 | XMS_ITS | Encounter Summary ---
Author Organization [employer] [facility] Address [address] [place] [address] Care Team Providers Care Conductor Sleeping Car Name Role Phone Unavailable Primary Care Provider [...]
--- OUTSIDE RECORDS SUMMARY | 2024-10-26 11:47 | XMS_ITS | Clinical Summary ---
Author Organization [facility] Address [address] [place] [address] Phone Care Team Providers Care Warehouse Stocker Name Role Phone Shereen Cortes MD Primary [...] Admin Instructions. Active blood-glucose meter,continuous ([employer] G7 Structural Steel Shop Supervisor) misc 1 Each by Does not apply [...] DAILY FOR 3 MONTHS Active blood-glucose sensor ([employer] G7 Sensor) device Box = Kit = [...] wound of foot, complicated 08/31/2023 Severe obesity ([facility] V24, [facility] V28) 2023 Diabetes ([facility] V24, [facility] V28) 08/31/2023 ESRD (end stage renal disease) ([facility] V24, [facility] V28) 01/25/2023 Septic discitis of lumbar [...] in the future. Hypertension 08/10/2021 Diabetic retinopathy ([facility]24, [facility] V28) 01/06/2021 Type 2 diabetes mellitus wit h eye manifestations ([facility] V24, [facility] V28) 01/06/2021 Diabetic neuropathy ([facility] V24, [facility] V28) 0 01/06/2021 Diabetic nephropathy ([facility] V24, [facility] V28) 01/06/2021 Osteoarthritis 01/06/2021 Celiac disease 01/06/2021 Chronic kidney disease (CKD) , stage III (moderate) ([facility] V24, [facility] V28) 01/06/2021 Gastroparesis 01/06/2021 Hyperlipidemia 01/06/2021 Multinodular goiter (nontoxic) 01/06/2021 Renal calculi 01/06/2021 Erectile dysfunction 01/06/2021 Inguinal hernia 01/06/2021 Overview (04/04/2024): bilateral Eating disorder 01/05/2021 S/P BKA (below knee amputati on), left ([facility] V24, [facility] V28) 01/05/2021 Overview (04/04/2024): 06/28/17, uses prosthetic leg CECIL on CPAP 08/05/2020 Overview (04/04/2024): SMS treatment polysomnogram 09/10/2021. AHI 280; BMI 40. Interpretation: Sleep apnea peers controlled at CPAP pressure of 20. There were periodic leg mid minutes of uncertain clinical significance. Type 2 diabetes mellitus ([facility] V24, [facility] V 28) 09/04/2005 Essential hypertension, benign 08/17/2005 Peripheral artery disease ([facility] V24) 08/17/19 06 Gout, unspecified 08/17/2005 Immunizations [...] kidney disease) stage 3, GFR 30-59 ml/min ([facility] V24, [facility] V28) 01/06/2021 DX:CKD (chronic kidney disea se) stage 3, GFR 30-59 ml/min ([facility]) Class 3 severe obesity due t o excess calories with serious comorbidity and body mass index (BMI) of 45.0 to 49.9 in adult ([facility] V24, [facility] V28) 08/05/2020 DX:Class 3 severe obesity due to excess calories with serious comorbidity and body mass index (BMI) of 45.0 to 49.9 in adult ([facility]) Diabetic nephropathy ([facility]/ [facility] V24, [facility] V28) 01/06/2021 DX:Diabetic nephropathy (HCC ) Diabetic neuropathy ([facility]/HCC V24, [facility] V28) 01/06/2021 DX:Diabetic neuropathy (HCC) Diabetic retinopathy ([facility]/ [facility] V24, [facility] V28) 01/06/2021 DX:Diabetic retinopathy (HCC ) [...] 01/06/2021 DX:Osteoarthriti s Peripheral artery disease ([facility] V24) 08/17/2005 DX:Peripheral artery disease (HCC) Renal calculi 01/06/2021 DX:Renal calculi S/P BKA (below knee amputati on), left ([facility] V24, [facility] V28) 01/05/2021 DX:S/P BKA (below knee ampu tation), left ([facility]); COMMENT: 06/28/17, uses prosthetic leg Type 2 diabetes mellitus wit h eye manifestations ([facility] V24, [facility] V28) 01/06/2021 DX:Type 2 diabetes mellitus with eye manifestations (HCC) 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 ([facility] V24, [facility] V28) 09/04/2005 DX: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 (HCC) Type 2 diabetes mellitus wit h renal manifestations ([facility] V24, [facility] V28) 01/06/2021 DX:Type 2 diabetes mellitus with renal manifestations (HCC) Type 2 diabetes mellitus wit h vascular disease ([facility] V24, [facility] V28) 01/06/2021 DX:Type 2 diabetes mellitus [...] 2024 06/14/2022, 10/13/2021, 09/25/2020, Additional history exists Diabetes: [...] Results * Annual BMP Blood Test (10/29/2022) [facility] Annual BMP Blood Test abstracted Result [facility] Provider HEALTH MAINTENANCE Final Result * Hemoglobin A1c (10/29/2022) [facility] Hemoglobin A1C 5.8 <=6.5 % Blood Venous blood specimen / Unknown Result [facility] Provider LAB BLOOD ORDERABLES Elba l Result * Lipid panel (10/29/2022) [facility] LDL/HDL Ratio 3 0 - 4 Triglycerides 55 0 - 150 mg/dL Cholesterol 125 0 - 200 mg/dL HDL 51 >=40 mg/dL LDL Cholesterol 63 0 - 100 mg/dL Blood Venous blood specimen / Unknown Result [facility] Provider LAB BLOOD ORDERABLES Elba l Result * Urine Albumin Creatinine Ratio (04/23/2021) [facility] Urine Albumin Creatinine Ratio abstracted Result [facility] Provider HEALTH MAINTENANCE Final Result * Hepatitis C Screening (09/13/2000) [facility] Hepatitis C Screening abstracted Result [facility] Provider HEALTH MAINTENANCE Final Result from Last 3 Months or Most Recently Relevant to Health Maintenance Insurance [facility] MEDICARE Member Subscriber Plan / Payer (Ef fective 2021-Present) Name:Moustapha Ruiz Sr. Relation to Subscriber:Self Name:Moustapha Ruiz Sr. Payer ID:[id number] Group ID:[id number] Type:Not on file Address: [place] [address] [place] [id number] Care Teams Warehouse Stocker Relationship Specialty Start Date End Date Shereen Cortes MD [address] [place] [address] PCP - General Internal Medicine 08/10/21
--- OUTSIDE RECORDS SUMMARY | 2024-10-26 11:47 | XMS_ITS | Clinical Summary ---
Author Organization [facility] Address [address] [place] [address] Phone Care Team Providers Care Manager Engagement Name Role Phone Malou Cortes MD Primary Care Provider +1- [phone] Allergies Active Allergy Reactions Criticality Noted Date [...] 1 (one) time each day Active Multiple Vitamins-[place] als (CENTRUM SILVER 50+MEN PO) Take 1 [...] 24 025 Active ergocalciferol (Drisdol) 1.25 MG (39986 UT) capsule Take 1 capsule (50,000 Units [...] [place] [address] [place] [address] Mary Conti RN 10/02/2024 Treatment [facility] [address] [facility] [address] [place] [address] Gualberto Ruiz MD End stage renal disease; Dependence on renal dialysis 09/12/2024 Refill [facility] [address] [place] [address] Gualberto Ruiz MD 08/21/2024 Treatment [facility] [place] [id number] [facility] [address] [place] [address] Gualberto Ruiz MD from Last 3 Months [...] [facility] Comment:Volume of distributi on estimated from [place] and [place] formula Creatinine renal clearance 8.2(L) [...] Resu lt - Final Performing Organization Address [facility] Co de Phone Number [facility] [address] [place] [address] * LIH (10/02/2024 3:00 AM EDT) Only the most recent of4 resultswithin the time period is included. Lipemia Normal Normal [facility] Icterus Normal Normal [facility] Hemolysis Normal Normal [facility] 10/02/2024 3:00 AM EDT 10/03/2024 3:10 PM EDT us Gualberto Ruiz MD LAB [id number] ICITED RESULTS Final Result Performing Organization Address [facility] Co de Phone Number [facility] [address] [place] [address] * Glucose, urine, 24 hour (10/02/2024 3:00 AM EDT) Glucose 24 HR Dial 1,111 mg/dL [facility] 10/02/2024 3:00 AM EDT 10/03/2024 3:15 PM EDT us Gualberto Ruiz MD LAB URINE ORDERABLES Final Resul t Performing Organization Address [facility] Co de Phone Number [facility] [address] [place] [address] * Calcium Phosphorus Product, Adjusted (09/25/2024 3:00 [...] PM EDT us Gualberto Ruiz MD LAB [id number] ICITED RESULTS Final Result Performing Organization Address City/[facility]/ZIP Co de Phone Number A[facility] [address] [place] [address] * Hepatitis B Surface Ag w/Reflex Confirmation (09/25/2024 3:00 AM EDT) Only the most recent of3 resultswithin the time period is included. [facility] Hep B Surface Antigen Negative Negative [facility] 09/25/2024 3:00 AM EDT 09/26/2024 1:25 PM EDT us Gualberto Ruiz MD LAB BLOOD ORDERABLES Final Resul t Performing Organization Address City/[facility]/ZIP Co de Phone Number [facility] [address] [place] [address] * (ABNORMAL) TSAT (09/25/2024 3:00 AM EDT) [...] ORDERABLES Final Resul t Performing Organization Address City/[facility]/ZIP Co de Phone Number [facility] [address] [place] [address] * Reticulocytes (09/25/2024 3:00 AM EDT) Pathologist [facility] Reticulocyte 1.3 0.5 - 1.8 % [facility] Retic Ct Pct 33.4 28.2 - 35.7 pg [facility] 09/25/2024 3:00 AM EDT 09/26/2024 1:14 PM EDT us Gualberto Ruiz MD LAB BLOOD ORDERABLES Final Resul t Performing Organization Address [facility] Co de Phone Number [facility] [address] [place] [address] * (ABNORMAL) CBC and Differential (09/25/2024 3:00 [...] ORDERABLES Final Resul t Performing Organization Address City/[facility] Co de Phone Number [facility] [address] [place] [address] * (ABNORMAL) BUN (09/25/2024 3:00 AM EDT) Only the most recent of3 resultswithin the time period is included. BUN 38(H) 7 - 25 mg/dL [facility] 09/25/2024 3:00 AM EDT 09/26/2024 1:25 PM EDT us Gualberto Ruiz MD LAB BLOOD ORDERABLES Final Resul t Performing Organization Address [facility] de Phone Number [facility]PS [facility] [address] [place] [address] * ALT (09/25/2024 3:00 AM EDT) Only the most recent of3 resultswithin the time period is included. ALT (SGPT) 22 10 - 49 U/L [facility] 09/25/2024 3:00 AM EDT 09/26/2024 1:25 PM EDT us Gualberto Ruiz MD LAB BLOOD ORDERABLES Final Resul t Performing Organization Address [facility] de Phone Number [facility]PS [facility] [address] [place] [address] * AST (09/25/2024 3:00 AM EDT) Only the most recent of3 resultswithin the time period is included. AST (SGOT) 12 <34 U/L [facility] 09/25/2024 3:00 AM EDT 09/26/2024 1:25 PM EDT us Gualberto Ruiz MD LAB BLOOD ORDERABLES Final Resul t Performing Organization Address [facility] de Phone Number [facility] [address] [place] [address] * Protein, total (09/25/2024 3:00 AM EDT) Only the most recent of3 resultswithin the time period is included. Total Protein 6.9 6.4 - 8.9 g/dL [facility] 09/25/2024 3:00 AM EDT 09/26/2024 1:25 PM EDT us Gualberto Ruiz MD LAB BLOOD ORDERABLES Final Resul t Performing Organization Address [facility] de Phone Number [facility] [address] [place] [address] * Alkaline phosphatase (09/25/2024 3:00 AM EDT) Only the most recent of3 resultswithin the time period is included. Alkaline Phosphatase 108 46 - 116 U/L [facility] 09/25/2024 3:00 AM EDT 09/26/2024 1:25 PM EDT us Gualberto Ruiz MD LAB BLOOD ORDERABLES Final Resul t Performing Organization Address [facility] de Phone Number [facility] [address] [place] [address] * PTH, Intact (09/25/2024 3:00 AM EDT) [...] ORDERABLES Final Resul t Performing Organization Address [facility] de Phone Number [facility] [address] [place] [address] * (ABNORMAL) Magnesium (09/25/2024 3:00 AM EDT) Only the most recent of3 resultswithin the time period is included. Magnesium 1.8(L) 1.9 - 2.7 mg/dL [facility] 09/25/2024 3:00 AM EDT 09/26/2024 1:25 PM EDT us Gualberto Ruiz MD LAB BLOOD ORDERABLES Final Resul t Performing Organization Address [facility] de Phone Number [facility] [address] [place] [address] * Lactate dehydrogenase (09/25/2024 3:00 AM EDT) Only the most recent of3 resultswithin the time period is included. LDH 177 120 - 246 U/L [facility] 09/25/2024 3:00 AM EDT 09/26/2024 1:25 PM EDT us Gualberto Ruiz MD LAB BLOOD ORDERABLES Final Resul t Performing Organization Address [facility] de Phone Number [facility] [address] [place] [address] * Hemoglobin A1c (09/25/2024 3:00 AM EDT) [...] ORDERABLES Final Resul t Performing Organization Address [facility] de Phone Number [facility] [address] [place] [address] * (ABNORMAL) Glucose, random (09/25/2024 3:00 AM EDT) Only the most recent of3 resultswithin the time period is included. Glucose 204(H) 74 - 109 mg/dL [facility] 09/25/2024 3:0 0 AM EDT 09/26/2024 1:25 PM EDT us Gualberto Ruiz MD LAB BLOOD ORDERABLES Final Resul t Performing Organization Address [facility] de Phone Number [facility] [address] [place] [address] * (ABNORMAL) Ferritin (09/25/2024 3:00 AM EDT) Only the most recent of3 resultswithin the time period is included. Ferritin 569(H) 22 - 322 ng/mL [facility] 09/25/2024 3:00 AM EDT 09/26/2024 1:25 PM EDT Result Yary Ruiz MD LAB BLOOD ORDERABLES Final Resul t Performing Organization Address [facility] de Phone Number [facility] [address] [place] [address] * (ABNORMAL) Creatinine, serum (09/25/2024 3:00 AM EDT) Only the most recent of3 resultswithin the time period is included. Creatinine 4.56(H) 0.70 - 1.30 mg/dL [facility] 09/25/2024 3:00 AM EDT 09/26/2024 1:25 PM EDT Result Yary Ruiz MD LAB BLOOD ORDERABLES Final Resul t Performing Organization Address City/[facility] de Phone Number [facility] [address] [place] [address] * (ABNORMAL) Bilirubin, total (09/25/2024 3:00 AM EDT) Only the most recent of3 resultswithin the time period is included. Total Bilirubin 0.2(L) 0.3 - 1.2 mg/dL [facility] 09/25/2024 3:00 AM EDT 09/26/2024 1:25 PM EDT Gualberto Ruiz MD LAB BLOOD ORDERABLES Final Resul t Performing Organization Address [facility] de Phone Number [facility] [address] [place] [address] * (ABNORMAL) Lipid panel (09/25/2024 3:00 AM [...] ORDERABLES Final Resul t Performing Organization Address [facility] de Phone Number [facility] [address] [place] [address] * (ABNORMAL) Electrolyte panel (09/25/2024 3:00 AM [...] ORDERABLES Final Resul t Performing Organization Address [facility] de Phone Number [facility] [address] [place] [address] from Last 3 Months Insurance [facility] ([id number]) [facility] ([id number]) Care Teams Manager Engagement Relationship Specialty Start Date End Date Malou Cortes MD [address] [place] [address] PCP - General 07/07/20
--- OUTSIDE RECORDS SUMMARY | 2024-10-26 11:47 | XMS_ITS | Clinical Summary ---
Author Organization [employer] Address [address] [place] [address] Care Team Providers Care Inspector Government Property Name Role Phone Unavailable Primary Care Provider [...]
--- OUTSIDE RECORDS SUMMARY | 2024-10-26 11:47 | XMS_ITS ---
Author Organization [facility] Address [address] [place] [address] Care Team Providers Care Paper Sealer Name Role Phone Sebastian CASTRO, Shereen Primary Care Provider Donte Llamas [facility] [phone] REASON FOR VISIT Patient presents today for DYSPHAGIA, EPIGASTRIC PAIN Encounters Encounter Location Date Provider Diagnosis [facility] [address] [address] 03/09/2024 Donte Ching Plan Of Treatment No Information Progress Notes * PAKO MEDINADOB:[birth year] (59 yo M)Acc No.[id number]:03/09/2024 Progress Notes Patient:?PAKO MEDINA Provider:?Donte Ching MD :1965???Age:58 Y???Sex:Male Noel e:03/09/2024 Address:[address] [place], [place] [address] Pcp:Shereen Cortes MD Subjective: * Chief Complaints: [...] Date:? 024 Generated for Hermelinda montiel/Juan Carlos/Zoya on:?10/26/2024 11:47 AM EDT
--- OUTSIDE RECORDS SUMMARY | 2024-10-26 11:47 | XMS_ITS | Encounter Summary ---
Author Organization [facility] Address [address] [place] [address] Phone Care Team Providers Care Rehabilitation Attendant Name Role Phone Malou Cortes MD Primary Care Provider +1- [phone] Encounter Details Date Type Department Care Team (Late st Contact Info) Description 12/08/2022 Telephone [facility] [address] [place] [address] Shruti Chi Social History Tobacco [...] can be done for this PT. Ambreen: [phone] documented in this encounter Plan of Treatment Not on file documented as of this encounter Visit Diagnoses Not on filedocumented in this encounter Care Teams Rehabilitation Attendant Relationship Specialty Start Date End Date Malou Cortes MD [address] [place] [address] PCP - General 07/07/20 documented as of this encounter
--- OUTSIDE RECORDS SUMMARY | 2024-10-26 11:47 | XMS_ITS | Encounter Summary ---
Author Organization [facility] Address [address] [place] [address] Phone Care Team Providers Care Animal Cruelty Investigation Supervisor Name Role Phone Malou Cortes MD Primary Care Provider +1- [phone] Reason for Visit * Reason Comments Med Refill Encounter Details Date Type Department Care Team (Late st Contact Info) Description 08/06/2020 Refill [facility] [address] [place] [phone] Catalino Mancia MD Social History Tobacco Use [...] on filedocumented in this encounter Care Teams Animal Cruelty Investigation Supervisor Relationship Specialty Start Date End Date Malou Cortes MD [facility] [place] [address] PCP - General 07/07/20 documented as of this encounter
--- OUTSIDE RECORDS SUMMARY | 2024-10-26 11:47 | XMS_ITS | Data Portability ---
Author Organization [facility] ClaimReturn [place] in - [facility] Address [address] [place], [place] [address] Care Team Providers Care Solar Development Engineer Name Role Phone BRITTNEY FROST Primary Care Provider [phone] HIM CCA OTHER Assessment No assessment recorded. Plan of Treatment Reminders Order Date Submit Date Provider Last Modified By Organization Details Last Modified Time Details Appointments None recorded. Lab rapid strep group A, throat [address], [phone] 3 18:31:39 rapid SARS CoV 2 Ag, QL IA, respiratory specimen [address], [address] [place] [address], [id number] 3 18:31:39 rapid flu (A+B) [address], [address] [place] [address], [id number] 3 18:31:39 Referral None recorded. Procedures None recorded. Surgeries None recorded. Imaging None recorded. Medication Orders None recorded. Patient TargetsNo targets recorded. Patient InstructionsNo instructions recorded. Reason for Referral None Reported. Results Created Date Observation Date Name Description Value Unit Range Abnormal Flag Note LastModifiedBy Organization Detail LastModifiedTime 04/08/2004/08/2023 rapid flu (A+B) Flu negati ve Not Available [facility] ed [address] [place] [address], [phone] 04/08/2023 18:31:21 04/08/2004/08/2023 rapid SARS CoV 2 Ag, QL IA, respi rator y speci men rapid SARS CoV 2 Ag, QL IA, respiratory specimen negati ve Not Available [facility] ed [address] [place] [address], [phone] 04/08/2023 18:31:20 04/08/20 23 04/08/2023 rapid strep group A, throa t Strep negati ve Not Available Main - [facility] ed [address] [place] [address], [phone] 04/08/2023 18:31:18 Result Notes None recorded. Medical Equipment None Reported. Allergies Allergen ID Allergen Name Allergen Category Reaction Reaction Severity Criticality Documentation Date Start Date Code Code System Note Provider Name and Address Organization Details Recorded Time 9012 vancomyci n medicatio n Not available Not available Not available 04/24/2024 95810 RxNorm Not Available [facility] - production 03:48:28 [...] /min 93 mm[Hg] 54 mm[Hg] Not Available [facility] - production 3 18:30:42 Date Recorded Oxygen saturation Oxygen saturation in Arterial blood by Pulse oximetry Heart rate Body temperature Respiratory rate Systolic blood pressure Diastolic blood pressure Provider Name and Address Organization Details Last Updated DateTime 3 95 % 95 % 85 /min 97.8 [degF] 20 /min 172 mm[Hg] 87 mm[Hg] Not Available [facility] - production 3 15:38:56 Social History None recorded. Functional Status None recorded. Mental Status None recorded. Family History Nothing Reported. Medical History No medical history recorded. Past Encounters Encounter ID Performer Location Encounter Start Date Encounter Closed Date Diagnosis/Indication Diagnosis SNOMED-CT Code Diagnosis ICD10 Code Diagnosis Note [id number] Milan Ma MD Main - [facility] [address] [place] [phone] 09/13/2022 15:38:50 09/15/2022 09:13:27 Acute kidney injury 97715932 N17.9 This 57-year-ol d male was hospitaliz ed a month ago with CHF and stage 3 CKD. He called today because of increasing dyspnea and weakness. His BUN was 55 and his creatinine was 4.9. I recommende d that he go to the [facility] ER for evaluation of his acute renal failure. The patient agreed with this plan. [id number] Tangela Cerrato MD Main - [facility] [address] [place] [phone] 04/08/2023 18:30:34 04/12/2023 10:52:07 Sore throat 875924486 J02.9 Health Concerns Section Related Observation LastModified by Organization Detai ls LastModified Time None Recorded Concern Status LastModified by Organization Details LastModified Time None Recorded Advance Directives Directive None Recorded Payers Encounter Date Sequence Insurance Name Policy Number Policy Castro Covered Member ID Castro Member ID Guarantor Name 09/13/2022 1 [facility] - DOS PRIOR TO 2022 - DUAL ELIGIBLE (MEDICARE REPLACEMENT/ADV ANTAGE - HMO) Moustapha Ruiz [id number] Moustapha Ruiz 04/08/2023 1 [facility] - DOS ON OR AFTER 2022 - DUAL ELIGIBLE - SENIOR LIVING OPTIONS AND ONE CARE (MEDICARE REPLACEMENT/ADV ANTAGE - HMO) Moustapha Ruiz [id number] Moustapha Ruiz Notes Date Note Type Note Provider Name and Address Organization Details Recorded Time 09/13/2022 text/html CRC Nursing Assessment: Patient Reports: Cough; Shortness of breath with exertion Chief Complaints: Syncope/Dizziness/Lig htheadedness PMH: Diabetes, Other Allergies: Vancomycin Comments: Member calling with request for [facility] for eval for SOB and fluid retention x 1 month +fatigue. s/p hospitalization 1 month ago HX CKD VSS per [facility] nurse with member. No acute distress. Discuss if symptoms progress to seek 911-verblaize understanding. Verify member name/ ..................... ..................... ..................... ..................... ..................... ..................... ............... Animal Sitter Note From Lily Quinones: [facility] Animal Sitter Nettie Joni Sc6 dispatched to a red for a 57 yom C/O SOB. Upon arrival, the pt was ambulatory w/ obvious SOB, 1-2 word dyspnea. He was awake and alert, LARA X4, not in acute distress. He stated that he was discharged from [facility] 1 month prior, and that he had become increasingly short of breath on exertion since then. He stated he had stage 3 CKD, and was taking 20 mg torsemide daily. Rales heard in lower mancera. CMP acquired-results in insted. [facility] consulted; due to critically high BUN and creatinine levels, it was recommended to the pt that he seek hospitalization immediately. The pt refused 911 transport, stating his would drive him to [facility]. Animal Sitter Allergies: Vancomycin ..................... ..................... ..................... ..................... ..................... ..................... ............... Disposition: Fulfilled Milan Ma MD [address] [facility], [place], [address], [employer] 09/13/2022 15:43:25 04/08/2023 text/html HPI: mbr with complaints of sore throat, mbr was recently intubated for an abdominal procedure states ever since he had this done he increasingly developed sore throat, states feeling as if he had streptococcal pharyngitis. requesting [facility] visit. Protocol Used: Sore Throat Protocol-Based [...] ..................... ..................... ..................... ..................... ..................... ..................... ............... Animal Sitter Note From Virgil Perez: Pt reports sore throat after intubation, on Tuesday for abd ax. States that since then the sore throat has been getting worse and states that today he has been feeling well. States that he had HD done and after has been tired. On scene vs taken and COVID and flu done. [facility] was called and cleared. Animal Sitter Allergies: Vancomycin ..................... ..................... ..................... ..................... ..................... ..................... ............... Disposition: Fulfilled Tangela Cerrato MD [address] [facility],[address], [place], [address], BENJI - JUAN ANTONIO VITALE 07/06/2023 18:36:26
--- OUTSIDE RECORDS SUMMARY | 2024-10-26 11:47 | XMS_ITS | Encounter Summary ---
Author Organization [facility] Address [address] [place] [address] Phone Care Team Providers Care Mat Repairer Name Role Phone Malou Cortes MD Primary Care Provider +1- [phone] Reason for Visit * Reason Comments Med Refill Encounter Details Date Type Department Care Team (Late st Contact Info) Description 07/29/2022 Refill [facility] [address] [place] [phone] Rafael Shah MD Social History Tobacco Use [...] filedocumented in this encounter Care Teams Mat Repairer Relationship Specialty Start Date End Date Malou Cortes MD [address] [place] [address] PCP - General 07/07/20 documented as of this encounter
--- OUTSIDE RECORDS SUMMARY | 2024-10-26 11:47 | XMS_ITS ---
Author Organization [facility] Address [address] [place] [address] Care Team Providers Care Adult Psychiatrist Name Role Phone Sebastian CASTRO, Shereen Primary Care Provider Donte Llamas [phone] REASON FOR VISIT Pt no showed Encounters Encounter Location Date Provider Diagnosis [facility] [address] [place] [address] 03/09/2024 Donte Ching Plan Of Treatment No Information Progress Notes * PAKO MEDINADOB:[birth year] (58 yo M)Acc No.[id number]:03/09/2024 Patient:?PAKO MEDINA :1965???Age:58 Y???Sex:Male Address:[address] [place] [address] [place], [address] * true * Date:? Generated for Kamrani tiana/Juan Carlos/eTransmitting on:?10/26/2024 11:47 AM EDT
--- OUTSIDE RECORDS SUMMARY | 2024-10-26 11:48 | XMS_ITS | Patient Health Record ---
Author Organization [facility] Address [address] [place] [address] Care Team Providers Care Dairy Farm Supervisor Name Role Phone Shereen Cortes MD Primary Care Provider oDnte Llamas Unavailable [phone] Allergies Allergen (clinical drug ingredient) Drug/Non Drug [...] Problem Status W/U Status Risk Notes Problem 063958610 Encounter for screening for malignant neoplasm of colon (Z12.11) Active confirmed Problem 561353145 Abdominal bloating (R14.0) Active confirmed Problem 18115940 Abdominal pain, epigastric (R10.13) Active confirmed Problem 002937336 Abdominal pain, left upper quadrant (R10.12) Active confirmed Problem 042432781 Small intestinal bacterial overgrowth (K63.89) Active confirmed Encounters Encounter Location Date Provider Diagnosis [facility] [address] [place] [address] 03/09/2024 Donte Ching Plan Of Treatment Pending [...] Insured Coverage Start Date Coverage End Date [facility] [address] [place] [address] [id number] CAROLPAKO GALDAMEZ Self - patient is the insured Medical (General) History Medical History History ICD Code IDDM--sees Dr. 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
== END 2024-10-26 12:07 | disposition home or self-care (01) ==
PROVIDERS: PCP Internal Medicine; Visit Provider Internal Medicine
DX: S29.9XXA Unspecified injury of thorax, initial encounter (principal); E11.9 Type 2 diabetes mellitus without complications; Z79.4 Long term (current) use of insulin; R07.81 Pleurodynia; R29.6 Repeated falls

== ENCOUNTER 2024-10-26 10:41 | Outpatient (REF) | payer OTHER, SELFPAY ==
--- NOTE | ~2024-10-26 | XR_ITS ---
EXAMINATION: XR RIBS 3 VIEWS MINIMUM WITH CHEST LEFT HISTORY: S29.9XXA - Unspecified injury of thorax, initial encounter COMPARISON: Comparison is made with the prior examination dated 12/16/2023. FINDINGS: A single PA view of the chest and 3 views of the left ribs are submitted. There is a tiny left pleural effusion with adjacent subsegmental atelectasis. The right lung is clear. There is no pneumothorax or pulmonary vascular congestion. The heart is normal in size. There is degenerative disc disease of the spine. The left ribs are intact. No fracture is seen. XR/XR ribs LT min 3V w CXR1V IMPRESSION: Tiny left pleural effusion with adjacent subsegmental atelectasis. No evidence of fracture of the left wrist. Electronically signed by: Donte Khan MD 10/26/2024 03:32 PM EDT
--- OUTSIDE RECORDS SUMMARY | 2024-10-26 12:39 | XMS_ITS | Clinical Summary ---
Author Organization [employer] Address [address] [facility] [address] [place] [address] Care Team Providers Care Wood Scrap Handler Name Role Phone Unavailable Primary Care Provider [...]
--- OUTSIDE RECORDS SUMMARY | 2024-10-26 12:39 | XMS_ITS | Clinical Summary ---
Author Organization [address] [facility] Address [address] [place] [address] Phone Care Team Providers Care Art Glass Designer Name Role Phone Shereen Cortes MD Primary [...] Admin Instructions. Active blood-glucose meter,continuous ([employer] G7 [employer] Refining Equipment Operator) misc 1 Each by Does not apply [...] DAILY FOR 3 MONTHS Active blood-glucose sensor (GemShare G7 Sensor) device Box = Kit = [...] wound of foot, complicated 08/31/2023 Severe obesity ([facility] V24, [facility] V28) 2023 Diabetes ([facility] V24, [facility] V28) 08/31/2023 ESRD (end stage renal disease) ([facility] V24, [facility] V28) 01/25/2023 Septic discitis of lumbar region [...] in the future. Hypertension 08/10/2021 Diabetic retinopathy ([facility] V24, [facility] V28) 01/06/2021 Type 2 diabetes mellitus wit h eye manifestations ([facility] V24, [facility] V28) 01/06/2021 Diabetic neuropathy ([facility] V24, [facility] V28) 0 01/06/2021 Diabetic nephropathy ([facility] V24, [facility] V28) 01/06/2021 Osteoarthritis 01/06/2021 Celiac disease 01/06/2021 Chronic kidney disease (CKD) , stage III (moderate) ([facility] V24, [facility] V28) 01/06/2021 Gastroparesis 01/06/2021 Hyperlipidemia 01/06/2021 Multinodular goiter (nontoxic) 01/06/2021 Renal calculi 01/06/2021 Erectile dysfunction 01/06/2021 Inguinal hernia 01/06/2021 Overview (04/04/2024): bilateral Eating disorder 01/05/2021 S/P BKA (below knee amputati on), left ([facility] V24, [facility] V28) 01/05/2021 Overview (04/04/2024): 06/28/17, uses prosthetic leg CECIL on CPAP 08/05/2020 Overview (04/04/2024): SMS treatment polysomnogram 09/10/2021. AHI 280; BMI 40. Interpretation: Sleep apnea peers controlled at CPAP pressure of 20. There were periodic leg mid minutes of uncertain clinical significance. Type 2 diabetes mellitus ([facility] V24, [facility] V 28) 09/04/2005 Essential hypertension, benign 08/17/2005 Peripheral artery disease ([facility] V24) 08/17/19 06 Gout, unspecified 08/17/2005 Immunizations [...] HISTORICAL BELOW KNEE AMP ESOPHAGOGASTRODUODENOSCOPY 09/26/2013 PROCEDURE: MI ESOPHAGOGASTRODUODENOSCOPY TRANSORAL DIAGNOSTIC OTHER SURGICAL HISTORY 03/25/2015 PROCEDURE: HISTORY OTHER; COMMENT: thyroid lobectomy OTHER SURGICAL HISTORY 2004 PROCEDURE: HISTORY OTHER; COMMENT: ACL repair OTHER SURGICAL HISTORY 10/05/2021 PROCEDURE: MI LAMNOTMY INCL W/DCMPRSN NRV ROOT 1 INTRSPC LUMBR; COMMENT: Left L2-3 minimally invasive discectomy, Dr. Carmichael OTHER SURGICAL HISTORY 11/11/2022 PROCEDURE: MI I&D BELOW FASCIA FOOT MULTIPLE AREAS OTHER SURGICAL HISTORY 11/11/2022 Right PROCEDURE: MI AMPUTATION METATARSAL W/TOE SINGLE; COMMENT: right, fourth transmetatarsal OTHER SURGICAL HISTORY 11/16/2022 PROCEDURE: MI INCISION BONE CORTEX FOOT; COMMENT: fourth metatarsal OTHER SURGICAL HISTORY 11/16/2022 Right PROCEDURE: MI SECONDARY CLOSURE SURG WOUND/DEHSN XTNSV/COMP; COMMENT: right foot Medical History Medical History Date Comments Celiac disease 01/06/2021 DX:Celiac diseas e CKD (chronic kidney disease) stage 3, GFR 30-59 ml/min ([facility] V24, [facility] V28) 01/06/2021 DX:CKD (chronic kidney disea se) stage 3, GFR 30-59 ml/min ([facility]) Class 3 severe obesity due t o excess calories with serious comorbidity and body mass index (BMI) of 45.0 to 49.9 in adult ([facility] V24, [facility] V28) 08/05/2020 DX:Class 3 severe obesity due to excess calories with serious comorbidity and body mass index (BMI) of 45.0 to 49.9 in adult ([facility]) Diabetic nephropathy ([facility] V24, [facility] V28) 01/06/2021 DX:Diabetic nephropathy (HCC ) Diabetic neuropathy ([facility] V24, [facility] V28) 01/06/2021 DX:Diabetic neuropathy (HCC) Diabetic retinopathy ([facility] V24, [facility] V28) 01/06/2021 DX:Diabetic retinopathy (HCC ) Eating [...] 01/06/2021 DX:Osteoarthriti s Peripheral artery disease ([facility] [place] V24) 08/17/2005 DX:Peripheral artery disease (HCC) Renal calculi 01/06/2021 DX:Renal calculi S/P BKA (below knee amputati on), left ([facility] V24, [facility] V28) 01/05/2021 DX:S/P BKA (below knee ampu tation), left ([facility]); COMMENT: 06/28/17, uses prosthetic leg Type 2 diabetes mellitus wit h eye manifestations ([facility] V24, [facility] V28) 01/06/2021 DX:Type 2 diabetes mellitus with eye manifestations (HCC) 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 ([facility] V24, [facility] V28) 09/04/2005 DX: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 (HCC) Type 2 diabetes mellitus wit h renal manifestations ([facility] V24, [facility] V28) 01/06/2021 DX:Type 2 diabetes mellitus with renal manifestations (HCC) Type 2 diabetes mellitus wit h vascular disease ([facility] V24, [facility] V28) 01/06/2021 DX:Type 2 diabetes mellitus with [...] Results * Annual BMP Blood Test (10/29/2022) [facility] Annual BMP Blood Test abstracted Result [facility] Provider HEALTH MAINTENANCE Final Result * Hemoglobin A1c (10/29/2022) [facility] Hemoglobin A1C 5.8 <=6.5 % Blood Venous blood specimen / Unknown Result [facility] Provider LAB BLOOD ORDERABLES Elba l Result * Lipid panel (10/29/2022) [facility] LDL/HDL Ratio 3 0 - 4 Triglycerides 55 0 - 150 mg/dL Cholesterol 125 0 - 200 mg/dL HDL 51 >=40 mg/dL LDL Cholesterol 63 0 - 100 mg/dL Blood Venous blood specimen / Unknown Result [facility] Provider LAB BLOOD ORDERABLES Elba l Result * Urine Albumin Creatinine Ratio (04/23/2021) [facility] Urine Albumin Creatinine Ratio abstracted Result [facility] Provider HEALTH MAINTENANCE Final Result * Hepatitis C Screening (09/13/2000) [facility] Hepatitis C Screening abstracted Result [facility] Provider HEALTH MAINTENANCE Final Result from Last 3 Months or Most Recently Relevant to Health Maintenance Insurance [facility] MEDICARE Member Subscriber Plan / Payer (Ef fective 2021-Present) Name:Moustapha Ruiz Sr. Relation to Subscriber:Self Name:Moustapha Ruiz Sr. Payer ID:[id number] Group ID:[id number] Type:Not on file Address: [place] [address] [id number] Care Teams Art Glass Designer Relationship Specialty Start Date End Date Shereen Cortes MD [address] [place] [address] PCP - General Internal Medicine 08/10/21
--- OUTSIDE RECORDS SUMMARY | 2024-10-26 12:39 | XMS_ITS | Clinical Summary ---
Author Organization [facility] Address [address] [place] [address] Phone Care Team Providers Care Hay Buckler Name Role Phone Malou Cortes MD Primary Care Provider +1- [phone] Allergies Active Allergy Reactions Criticality Noted Date [...] 1 (one) time each day Active Multiple Vitamins-[place] als (CENTRUM SILVER 50+MEN PO) Take 1 [...] 24 025 Active ergocalciferol (Drisdol) 1.25 MG (09758 UT) capsule Take 1 capsule (50,000 Units [...] [place] [address] [place] [address] Mary Conti RN 10/02/2024 Treatment [facility] [address] [address] [place] [address] Gualberto Ruiz MD End stage renal disease; Dependence on renal dialysis 09/12/2024 Refill [facility] [address] [place] [address] Gualberto Ruiz MD 08/21/2024 Treatment [facility] [place] [id number] [facility] [address] [place] [address] Gualberto Ruiz MD from Last 3 Months [...] [facility] Comment:Volume of distributi on estimated from [employer] [employer] formula Creatinine renal clearance 8.2(L) [...] Resu lt - Final Performing Organization Address [facility] Co de Phone Number [facility] [address] [place] [address] * LIH (10/02/2024 3:00 AM EDT) Only the most recent of4 resultswithin the time period is included. Lipemia Normal Normal [facility] Icterus Normal Normal [facility] Hemolysis Normal Normal [facility] 10/02/2024 3:00 AM EDT 10/03/2024 3:10 PM EDT us Gualberto Ruiz MD LAB [id number] ICITED RESULTS Final Result Performing Organization Address [facility] Co de Phone Number [facility] [address] [place] [address] * Glucose, urine, 24 hour (10/02/2024 3:00 AM EDT) Glucose 24 HR Dial 1,111 mg/dL [facility] 10/02/2024 3:00 AM EDT 10/03/2024 3:15 PM EDT us Gualberto Ruiz MD LAB URINE ORDERABLES Final Resul t Performing Organization Address [facility] Co de Phone Number [facility] [address] [place] [address] * Calcium Phosphorus Product, Adjusted (09/25/2024 3:00 AM EDT) Only the most recent of3 resultswithin the time period is included. Pathologist [facility] Albumin 3.7 3.6 - 5.4 g/dL [facility] Calcium 9.0 8.6 - 10.3 mg/dL [facility] Phosphorus, Serum 5.0 2.5 - 5.0 mg/dL [facility] Ca*PO4 45.0 <55.0 mg2/dL2 [facility] Calcium, Adjusted Total 9.2 8.6 - 10.3 mg/dL [facility] CA*PO4 CORRCTD 46.0 <55.0 mg2/dL2 [facility] 09/25/2024 3:00 AM EDT 09/26/2024 1:25 PM EDT us Gualberto Ruiz MD LAB [id number] ICITED RESULTS Final Result Performing Organization Address City/[facility]/ZIP Co de Phone Number [facility] [address] [place] [address] * Hepatitis B Surface Ag w/Reflex Confirmation (09/25/2024 3:00 AM EDT) Only the most recent of3 resultswithin the time period is included. [facility] Hep B Surface Antigen Negative Negative [facility] 09/25/2024 3:00 AM EDT 09/26/2024 1:25 PM EDT us Gualberto Ruiz MD LAB BLOOD ORDERABLES Final Resul t Performing Organization Address [facility]/ZIP Co de Phone Number [facility] [address] [place] [address] * (ABNORMAL) TSAT (09/25/2024 3:00 AM EDT) Only the most recent of3 resultswithin the time period is included. Pathologist [facility] Iron 62(L) 65 - 175 ug/dL [facility] Transferrin 136(L) 215 - 365 mg/dL [facility] TIBC 190(L) 211 - 406 ug/dL [facility] Iron Saturation (TSat) 33 22 - 52 % [facility] 09/25/2024 3:00 AM EDT 09/26/2024 1:25 PM EDT us Gualberto Ruiz MD LAB BLOOD ORDERABLES Final Resul t Performing Organization Address [facility]/ZIP Co de Phone Number [facility] [address] [place] [address] * Reticulocytes (09/25/2024 3:00 AM EDT) Pathologist [facility] Reticulocyte 1.3 0.5 - 1.8 % [facility] Retic Ct Pct 33.4 28.2 - 35.7 pg [facility] 09/25/2024 3:00 AM EDT 09/26/2024 1:14 PM EDT us Gualberto Ruiz MD LAB BLOOD ORDERABLES Final Resul t Performing Organization Address [facility] Co de Phone Number [facility] [address] [place] [address] * (ABNORMAL) CBC and Differential (09/25/2024 3:00 AM EDT) Only the most recent of3 resultswithin the time period is included. Pathologist [facility] DIFFERENTIAL MANUAL, 2 Not Indicated [facility] White [...] ORDERABLES Final Resul t Performing Organization Address [facility] Co de Phone Number [facility] [address] [place] [address] * (ABNORMAL) BUN (09/25/2024 3:00 AM EDT) Only the most recent of3 resultswithin the time period is included. BUN 38(H) 7 - 25 mg/dL [facility] 09/25/2024 3:00 AM EDT 09/26/2024 1:25 PM EDT us Gualberto Ruiz MD LAB BLOOD ORDERABLES Final Resul t Performing Organization Address [facility] de Phone Number [facility] [address] [place] [address] * ALT (09/25/2024 3:00 AM EDT) Only the most recent of3 resultswithin the time period is included. ALT (SGPT) 22 10 - 49 U/L [facility] 09/25/2024 3:00 AM EDT 09/26/2024 1:25 PM EDT us Gualberto Ruiz MD LAB BLOOD ORDERABLES Final Resul t Performing Organization Address [facility] de Phone Number [facility] [address] [place] [address] * AST (09/25/2024 3:00 AM EDT) Only the most recent of3 resultswithin the time period is included. AST (SGOT) 12 <34 U/L [facility] 09/25/2024 3:00 AM EDT 09/26/2024 1:25 PM EDT us Gualberto Ruiz MD LAB BLOOD ORDERABLES Final Resul t Performing Organization Address [facility] de Phone Number [facility] [address] [place] [address] * Protein, total (09/25/2024 3:00 AM EDT) Only the most recent of3 resultswithin the time period is included. Total Protein 6.9 6.4 - 8.9 g/dL [facility] 09/25/2024 3:00 AM EDT 09/26/2024 1:25 PM EDT us Gualberto Ruiz MD LAB BLOOD ORDERABLES Final Resul t Performing Organization Address [facility] de Phone Number [facility] [address] [place] [address] * Alkaline phosphatase (09/25/2024 3:00 AM EDT) Only the most recent of3 resultswithin the time period is included. Alkaline Phosphatase 108 46 - 116 U/L [facility] 09/25/2024 3:00 AM EDT 09/26/2024 1:25 PM EDT us Gualberto Ruiz MD LAB BLOOD ORDERABLES Final Resul t Performing Organization Address [facility] de Phone Number [facility] [address] [place] [address] * PTH, Intact (09/25/2024 3:00 AM EDT) [...] ORDERABLES Final Resul t Performing Organization Address [facility] de Phone Number [facility] [address] [place] [address] * (ABNORMAL) Magnesium (09/25/2024 3:00 AM EDT) Only the most recent of3 resultswithin the time period is included. Magnesium 1.8(L) 1.9 - 2.7 mg/dL [facility] 09/25/2024 3:00 AM EDT 09/26/2024 1:25 PM EDT us Gualberto Ruiz MD LAB BLOOD ORDERABLES Final Resul t Performing Organization Address [facility] de Phone Number [facility] [address] [place] [address] * Lactate dehydrogenase (09/25/2024 3:00 AM EDT) Only the most recent of3 resultswithin the time period is included. LDH 177 120 - 246 U/L [facility] 09/25/2024 3:00 AM EDT 09/26/2024 1:25 PM EDT us Gualberto Ruiz MD LAB BLOOD ORDERABLES Final Resul t Performing Organization Address [facility] de Phone Number [facility] [address] [place] [address] * Hemoglobin A1c (09/25/2024 3:00 AM EDT) [...] ORDERABLES Final Resul t Performing Organization Address [facility] de Phone Number [facility] [address] [place] [address] * (ABNORMAL) Glucose, random (09/25/2024 3:00 AM EDT) Only the most recent of3 resultswithin the time period is included. Glucose 204(H) 74 - 109 mg/dL [facility] 09/25/2024 3:0 0 AM EDT 09/26/2024 1:25 PM EDT us Gualberto Ruiz MD LAB BLOOD ORDERABLES Final Resul t Performing Organization Address [facility] de Phone Number [facility] [address] [place] [address] * (ABNORMAL) Ferritin (09/25/2024 3:00 AM EDT) Only the most recent of3 resultswithin the time period is included. Ferritin 569(H) 22 - 322 ng/mL [facility] 09/25/2024 3:00 AM EDT 09/26/2024 1:25 PM EDT Result Yary Ruiz MD LAB BLOOD ORDERABLES Final Resul t Performing Organization Address [facility] de Phone Number [facility] [address] [place] [address] * (ABNORMAL) Creatinine, serum (09/25/2024 3:00 AM EDT) Only the most recent of3 resultswithin the time period is included. Creatinine 4.56(H) 0.70 - 1.30 mg/dL [facility] 09/25/2024 3:00 AM EDT 09/26/2024 1:25 PM EDT Result Yary Ruiz MD LAB BLOOD ORDERABLES Final Resul t Performing Organization Address [facility] de Phone Number [facility] [address] [place] [address] * (ABNORMAL) Bilirubin, total (09/25/2024 3:00 AM EDT) Only the most recent of3 resultswithin the time period is included. Total Bilirubin 0.2(L) 0.3 - 1.2 mg/dL [facility] 09/25/2024 3:00 AM EDT 09/26/2024 1:25 PM EDT Gualberto Ruiz MD LAB BLOOD ORDERABLES Final Resul t Performing Organization Address [facility] de Phone Number [facility] [address] [place] [address] * (ABNORMAL) Lipid panel (09/25/2024 3:00 AM [...] ORDERABLES Final Resul t Performing Organization Address [facility] de Phone Number [facility] [address] [place] [address] * (ABNORMAL) Electrolyte panel (09/25/2024 3:00 AM [...] ORDERABLES Final Resul t Performing Organization Address [facility] de Phone Number [facility] [address] [place] [address] from Last 3 Months Insurance [facility] ([id number]) [facility] ([id number]) Care Teams Hay Buckler Relationship Specialty Start Date End Date Malou Cortes MD [address] [place] [address] PCP - General 07/07/20
--- OUTSIDE RECORDS SUMMARY | 2024-10-26 12:39 | XMS_ITS | Encounter Summary ---
Author Organization [facility] Address [address] [place] [address] Phone Care Team Providers Care Pasta Press Operator Name Role Phone Malou Cortes MD Primary Care Provider +1- [phone] Reason for Visit * Reason Comments Med Refill Encounter Details Date Type Department Care Team (Late st Contact Info) Description 08/06/2020 Refill [facility] [address] [place] [phone] Catalino Mancia MD Social History Tobacco Use [...] on filedocumented in this encounter Care Teams Pasta Press Operator Relationship Specialty Start Date End Date Malou Cortes MD [place] [address] PCP - General 07/07/20 documented as of this encounter
--- OUTSIDE RECORDS SUMMARY | 2024-10-26 12:39 | XMS_ITS | Encounter Summary ---
Author Organization [facility] Address [address] [place] [address] Phone Care Team Providers Care Fixed Route Operator Name Role Phone Malou Cortes MD Primary Care Provider +1- [phone] Reason for Visit * Reason Comments Med Refill Encounter Details Date Type Department Care Team (Late st Contact Info) Description 07/29/2022 Refill [facility] [address] [place] [phone] Rafael Shah MD Social History Tobacco Use [...] on filedocumented in this encounter Care Teams Fixed Route Operator Relationship Specialty Start Date End Date Malou Cortes MD [address] [place] [address] PCP - General 07/07/20 documented as of this encounter
--- OUTSIDE RECORDS SUMMARY | 2024-10-26 12:39 | XMS_ITS | Encounter Summary ---
Author Organization [employer] [facility] Address [address] [place] [address] Care Team Providers Care Mash Preparatory Operator Name Role Phone Unavailable Primary Care Provider [...]
--- OUTSIDE RECORDS SUMMARY | 2024-10-26 12:40 | XMS_ITS | Encounter Summary ---
Author Organization [facility] Address [address] [place] [address] Phone Care Team Providers Care Anime Designer Name Role Phone Malou Cortes MD Primary Care Provider +1- [phone] Encounter Details Date Type Department Care Team (Late st Contact Info) Description 12/08/2022 Telephone [facility] [address] [place] [address] Shruti Chi Social History Tobacco [...] can be done for this PT. Ambreen: [phone] documented in this encounter Plan of Treatment Not on file documented as of this encounter Visit Diagnoses Not on filedocumented in this encounter Care Teams Anime Designer Relationship Specialty Start Date End Date Malou Cortes MD [address] [place] [address] PCP - General 07/07/20 documented as of this encounter
== END 2024-10-26 10:42 | disposition home or self-care (01) ==
LOC: HO.HMGCX 10:41
PROVIDERS: PCP Internal Medicine; Visit Provider Internal Medicine
DX: S29.9XXA Unspecified injury of thorax, initial encounter (principal); R07.81 Pleurodynia; R29.6 Repeated falls; E11.9 Type 2 diabetes mellitus without complications; Z79.4 Long term (current) use of insulin
CPT/HCPCS: 71101; 99212

== ENCOUNTER → 2024-10-26 11:52 | Outpatient (BNV) | payer OTHER, SELFPAY | PROVIDERS: PCP Internal Medicine; Visit Provider Radiology Diagnostic Radiology | DX: S29.9XXA Unspecified injury of thorax, initial encounter (principal) | CPT/HCPCS: 71101 ==

== ENCOUNTER 2025-02-13 09:28 | Outpatient (AMB) | payer OTHER, SELFPAY ==
--- OUTSIDE RECORDS SUMMARY | 2024-03-09 10:40 | XMS_ITS ---
Author Organization [facility] Address [address] [place] [address] Care Team Providers Care Eyewear Manufacturing Supervisor Name Role Phone Shereen Cortes MD Primary Care Provider Donte Llamas [phone] REASON FOR VISIT Patient presents today for DYSPHAGIA, EPIGASTRIC PAIN Encounters Encounter Location Date Provider Diagnosis [facility] [address] [address] 03/09/2024 Donte Ching Plan Of Treatment No Information Progress Notes * PAKO MEDINADOB:[birth year] (59 yo M)Acc No.[id number]:03/09/2024 Progress Notes Patient: PAKO PRINCE Provider: Adriana Ching MD :1965 A ge:58 Y S ex:Male Date:03/09/2024 Address:[address] [place], [place] [id number] Pcp:Shereen Cortes MD Subjective: * Chief Complaints: * 1 . Patient presents today for DYSPHAGIA, EPIGASTRIC PAIN. * Medical History: Objective: * Vitals: Assessment: Plan: * Treatment: * * The named appointment provid er may or may not be the originator of this progress note, and it is not deemed complete until electronically signed by the appointment provider. Sign off status: Pending * Provider: Adriana Ching MD Date: 0 03/09/2024 Generated for Printi ng/Faxing/eTransmitting on: 0 02/13/2025 10:13 AM EDT
[2025-02-13 10:00] VITALS: BP 100/78; PULSE 84; RESP 16; TEMP 36.6; O2SAT 100; BMI 34.0
--- NOTE | 2025-02-13 10:00 | A.OFFPC_ITS ---
Vital Signs 02/13/25 10:00 Height 5 ft 11 in Weight 244 lb BMI 34.0 BP 100/78 Blood Pressure Location Lt brachial Position Sitting Respiration 16 Pulse 84 Pulse Source Pulse Oximeter Temp 97.8 F Temp Source Oral Pulse Oximetry (%) 100 Oxygen Delivery Method Room Air Intake Visit Reasons: Followup complex, mult hospitalizations Allergies cephalexin (CEPHALEXIN) Allergy (Intermediate, Verified 02/13/25 10:05) UNABLE TO MOVE ENTIRE BODY, chills and fever, nausea, chills, fever, and nausea metformin (METFORMIN) Adverse Reaction (Intermediate, Verified 02/13/25 10:05) ADVISED NOT TO TAKE ANYMORE,SHAKEY,STOMACH PAINS, stomach upset, stomach upset Medication List - Last Reconciled 02/13/25 by Shereen Cortes MD acetaminophen mg PO allopurinol 100 mg PO DAILY atorvastatin 10 mg PO DAILY blood sugar diagnostic As directed bumetanide 1 mg PO BID carvedilol 6.25 mg PO Q12H diclofenac sodium 1% (Arthritis Pain (diclofenac)) 4 grams topical BID 30 days flash glucose sensor (FreeStyle Juanito 14 Day Sensor kit) As directed gabapentin 300 mg PO DAILY hydrocortisone 2.5% appl topical insulin aspart U-100 (Novolog FlexPen U-100 Insulin aspart) subcut insulin glargine (Lantus Solostar U-100 Insulin) 12 units subcut QAM [Left twdyk-wxy-ujsy prosthetic As directed NS] midodrine 10 mg PO ONCE PRN [Mobility scooter As directed] pen needle, diabetic (BD Ultra-Fine Short Pen Needle) As directed [rollator As directed] sertraline 50 mg PO DAILY tamsulosin mg PO DAILY Tobacco use date assessed: 02/13/25 Dental Screening Dental Screen Date: 02/13/25 Did you have a dental visit in the last 12 months?: Yes Did you have a dental problem in the last 6 months where you did not have access to dental care?: Yes Was dental information given to patient?: Patient has dentist HPI Followup complex, mult hospitalizations HPI Details - 59-year-old male with history diabetes mellitus with latest hemoglobin A1c at 6.4% after infection resolved, has end-stage renal disease on hemodialysis via right chest tunneled catheter, previously on peritoneal dialysis, recently hospitalized December 2024 for MRSA associated intra-abdominal abscess related to his prior PD catheter , here today for follow-up. He reports feeling more drained with hemodialysis, which is conducted three times a week. Has been getting episodes of hypoglycemia especially now that he is receiving hemodialysis. Currently sees Dr. Raya, at Endocrine [facility] in [facility] -has hypertension, currently on carvedil ol, with dose recently increased to 12.5 mg twice daily by Nephrology. However patient states as he has been experiencing intermittent episodes of dizziness and low blood pressure levels after increasing dose - he fast left BKA and amputation of all toes due to complications, affecting mobility. - reports pruritus, likely related to di alysis, and is awaiting a dermatology appointment. - The patient has a history of depressio n and anxiety, managed with sertraline, with good results. - The patient reportsotalgia , decreased hearing in the right ear, with debris and signs of infection noted on examination. - he has history of gastroesophageal ref lux disease, managed with famotidine as needed. REPLACED BY [facility] Medical History History of rectal abscess Depression with anxiety Difficulty swallowing Epigastric pain syndrome Chronic right shoulder pain Spinal stenosis of lumbosacral region with radiculopathy Vitamin D deficiency Osteomyelitis of toe of right foot Chronic kidney disease, stage 5 Chronic low back pain Pericardial effusion Diabetes mellitus with retinopathy Diabetes mellitus with diabetic nephropathy, with long-term current use of insulin Dyslipidemia Diabetic gastroparesis associated with type 2 diabetes mellitus Celiac disease Diabetic neuropathy associated with type 2 diabetes mellitus Non-toxic multinodular goiter Hypertension Renal calculi Gastroparesis Hypercholesterolemia Peripheral vascular disease Surgical History Hx of BKA History of lumbar discectomy Status post amputation of lesser toe of right foot S/P laparoscopic sleeve gastrectomy Hx of colonoscopy History of below-knee amputation (~06/28/17) History of lobectomy of thyroid (~03/25/15) History of esophagogastroduodenoscopy (EGD) (~09/26/13) History of repair of ACL (~2004) History of skin graft (~1993) Family History Father Hypertension Diabetes Mother No problems noted. Sister Mental health disorder Social History Household Members: Spouse Housing: Apartment Do you presently have visiting nurse or other home services: No Alcohol intake: former Comment: refuses alarm Patient Tobacco Use Status: Never used Tobacco e-Cigarette/Vaping Use: Never Used service: No Current occupational status: disabled Cognitive needs: No Hearing needs: No Vision needs: No Questionnaire PHQ-9 Over the last 2 weeks, how often have you been bothered by any of the following problems? 1. Little interest or pleasure in doing things: several days 2. Feeling down, depressed, or hopeless: several days 3. Trouble falling or staying asleep, or sleeping too much: several days 4. Feeling tired or having little energy: more than half the days (More pronounced after each session of hemodialysis) 5. Poor appetite or overeating: more than half the days 6. Feeling bad about yourself - or that you are a failure or have let yourself or your family down: several days 7. Trouble concentrating on things, such as reading the newspaper or watching television: not at all 8. Moving or speaking so slowly that other people could have noticed. Or the opposite - being so fidgety or restless that you have been moving around a lot more than usual: not at all 9. Thoughts that you would be better off or of hurting yourself in some way: several days Total score: 9 Depression Screening Interpretation: Positive (Currently on sertraline) Depression Screening Follow-up: Existing condition, In treatment and Community Mental Health Worker F/U Depression Screening Done: Yes 69508 - PHQ-9 Billing: Yes Source: Developed by Drs. Donte Pope, Holly Wu, Gama So and colleagues, with an educational easton from [employer]. Thrive Questionnaire Date Thrive assessed: 02/06/25 I am a: Patient What is your living situation today?: I have a steady place to live Within the past 12 months, did the food you bought not last and you didn't have the money to get more?: Sometimes True Within the past 12 months, did you worry whether your food would run out before you got money to buy more?: Sometimes True Do you have trouble paying for medicines?: No Do you have trouble getting transportation to medical appointments?: No Do you have trouble paying your heating and electricity bill?: No Do you have trouble taking care of your child, family member or friend?: No Do you have trouble with day-to-day activities such as bathing, preparing meals, shopping, managing finances, etc.?: Yes Are you currently unemployed and looking for a job?: No Are you interested in more education?: No Please select the resources that you would like help with: None Currently or been in a relationship where the following occur: No concerns reported THRIVE Score: 2 AUDIT C Alcohol Use Questionnaire (AUDIT-C) 1. How often do you have a drink containing alcohol?: Never 3. How often do you have six or more drinks on one occasion?: Never Total Score: 0 Score Reviewed/Action Taken: Yes SALUD-7 AMB Questionnaire SALUD-7 Date SALUD - 7 assessed: 02/13/25 Feeling nervous, anxious, or on edge: 1 = Several days Not being able to stop or control worryin = Several days Worrying too much about different things: 1 = Several days Trouble relaxin = Several days Being so restless that it is hard to sit still: 1 = Several days Becoming easily annoyed or irritable: 0 = Not at all Feeling afraid as if something awful might happen: 1 = Several days Total SALUD-7 score (0-4 normal; 5-9 mild; 10-14 moderate; 15-21 severe): 6 Source: Developed by Drs. Donte Pope, Holly Wu, Gama So and colleagues, with an educational easton from [employer]. SALUD-7 Assessment Billing SALUD-7 Assessment Tool: SALUD-7 Assessment 17500 Review of Systems Const Denies chills, Denies fever(s), Reports frequent falls (Goes to dizziness), Denies headache(s), Reports malaise and Reports weight loss Eyes Details: Goes to [facility] ENT Reports as per HPI, Reports dizziness, Reports ear discharge (Right), Reports otalgia (Right ear) and Denies headache(s) Card Denies chest pain, Denies dyspnea and Denies other (Palpitations) Resp Denies cough, Denies dyspnea, Denies wheezing and Denies other ( shortness of breath) GI Reports as per HPI Details: On hemodialysis 3 times a week Musc Details: See HPI Skin/Breast Denies rash Neuro Reports as per HPI, Reports dizziness, Reports frequent falls (Goes to dizziness), Denies headache(s) and Denies paresthesias Psych Reports no additional complaints and Reports as per HPI Endo Reports as per HPI Flakito/Lymph Reports no additional complaints Aller/Immun Denies wheezing Physical exam (Primary Care) Vital Signs: Last Vital Signs Temp 97.8 F 02/13/25 10:00 Pulse 84 02/13/25 10:00 Resp 16 02/13/25 10:00 BP 100/78 02/13/25 10:00 Pulse Ox 100 02/13/25 10:00 Oxygen Delivery Method Room Air 02/13/25 10:00 BMI result Body Mass Index 34.0 Tobacco/Smoking Status: Tobacco use Status Tobacco use date assessed 02/13/25 02/13/25 10:05 Patient Tobacco Use Status Never used Tobacco 02/13/25 10:05 e-Cigarette/Vaping Use Never Used 02/13/25 10:05 PHQ-9: PHQ-9 Score PHQ-9: Total score 9 02/25/25 17:22 Depression Screening Interpretation: Positive (Currently on sertraline) Depression Screening Follow-up: Existing condition, In treatment and Community Mental Health Worker F/U Thrive Assessment: Date of Thrive Assessment Date Thrive assessed 02/06/25 02/13/25 10:05 Currently or been in a relationship where the following occur: No concerns reported Const General: alert Nutritional Appearance: obese morbidly obese Orientation/consciousness: patient oriented x3 HENMT Other: Ambulatory with assistance of his left leg prosthesis, in no acute distress, accompanying patient Ears: Abnormal EAC present edema on the right, EAC tenderness on the right and otic discharge occluded by discharge on the right Face and sinus: Yes face symmetric Mouth: Normal oral and palatal mucosa present and moist mucous membranes Neck Neck: Yes full ROM, Yes no lymphadenopathy and Yes supple Resp Effort & Inspection: normal respiratory effort and able to speak in complete sentences Auscultation: clear to auscultation bilaterally Cardio Rate: regular rate Rhythm: regular rhythm Heart sounds: S1 normal heart sound present and S2 normal heart sound present GI Inspection: Yes obesity Palpation (GI): Soft to palpation, nontender and no guarding Auscultation: normoactive bowel sounds Skin Other: Dressing in place over coccygeal and anal area, dry with no seepage Neuro General: patient oriented x3 and no focal motor deficits Extrem Other: Left leg prosthesis intact, all toes amputated on right Psych Appearance: grossly normal and well kempt Mental Status: mental status grossly normal Speech and movement: Normal speech and movement present and Slowed movement present (Neuro) Affect: normal affect Thought process: Normal thought process present Thought content: Normal thought content present Coding Level of Care Code Est Pt Level 4 (48988) Complex EM visit Add On G2211 Diagnoses Non-recurrent acute serous otitis media of right ear H65.01 Otitis media type: serous Laterality: right Recurrence: non-recurrent Chronic kidney disease, stage 5 N18.5 Diabetes mellitus with diabetic nephropathy, with long-term current use of insulin E11.21; Z79.4 Depression with anxiety F41.8 Additional Codes SALUD-7 Assessment Billing - SALUD-7 Assessment Tool: SALUD-7 Assessment 51043 ([id number]) PHQ-9 - 84302 - PHQ-9 Billing: Yes ([id number]) Assessment & Plan Assessment & Plan (1) Acute otitis media: Code(s): H66.90 - Otitis media, unspecified, unspecified ear Qualifiers: Otitis media type: serous Laterality: right Recurrence: non-recurrent Qualified Code(s): H65.01 - Acute serous otitis media, right ear Plan: Prescription sent for ciprofloxacin-dexamethasone 0.3-0.1%, to instill 4 drops in right ear canal every 12 hours for 7 days. Return to clinic if no improvement of symptoms (2) Chronic kidney disease, stage 5: Comment: Followed by Dr. Catalino Mancia Code(s): N18.5 - Chronic kidney disease, stage 5 Category: Medical (3) Diabetes mellitus with diabetic nephropathy, with long-term current use of insulin: Comment: now sees Dr Raya at [facility] Code(s): E11.21 - Type 2 diabetes mellitus with diabetic nephropathy; Z79.4 - termite control servicer (current) use of insulin Category: Medical (4) Depression with anxiety: Code(s): F41.8 - Other specified anxiety disorders Category: Medical Plan Currently going to hemodialysis three times a week, and it is important to monitor for any signs of infection or complications. The patient should maintain communication with the dialysis center regarding any changes in symptoms or lab results. For diabetes management, the patient is advised to monitor blood glucose levels closely, especially after dialysis sessions, to prevent hypoglycemic episodes. Currently being followed by Dr. Raya at [facility] and may need adjustments to insulin dosing may be necessary based on blood sugar readings. -Has been experiencing intermittent episodes of hypertension especially after recent dosage increase of carvedilol to 12.5 mg twice a day. Advised to inform his wire photo operator news, regarding these episodes, he was also placed on midodrine 10 mg to take 1 tablet once a day as needed for blood pressure falling below 100/60, by his wire photo operator news. - For the ear infection, the patient is prescribed ciprofloxacin and dexamethasone ear drops to be administered in the right ear. Follow-up is necessary to ensure resolution of the infection. The patient is encouraged to attend the upcoming dermatology appointment to address persistent pruritus, which may be related to dialysis. In the meantime, the use of prescribed topical treatments should continue. - For gastroesophageal reflux disease, famotidine is prescribed as needed, and dietary modifications are advised to prevent exacerbation of symptoms. Patient was informed and verbally consented to the use of an ambient scribe for clinic note documentation during this visit. Medications: New midodrine Blood pressure less than 100/6 10 mg PO ONCE PRN famotidine 40 mg PO DAILY PRN 30 tabs 0RF heartburn ciprofloxacin-dexamethasone 0.3-0.1 % Instill in right ear canal 4 drps otic (ears) Q12H 7.5 mL 0RF 7 days H66.90 - Otitis media, unspecified, unspecified ear
--- OUTSIDE RECORDS SUMMARY | 2025-02-13 10:13 | XMS_ITS | Encounter Summary ---
Author Organization [employer] [facility] Address [address] [place] [id number] Care Team Providers Care Sulfide Head Operator Name Role Phone Unavailable Primary Care Provider Unavailabl e Encounter Details Date Type Department Care Team (Latest Contact Info) Description 09/10/2020 Abstract C CONVERSIONS Dental, Provider, DDS Social History Tobacco [...]
--- OUTSIDE RECORDS SUMMARY | 2025-02-13 10:13 | XMS_ITS | Encounter Summary ---
Author Organization [facility] Address [address] [place] [address] Phone Care Team Providers Care Greaser Helper Name Role Phone Malou Cortes MD Primary Care Provider [phone] Reason for Visit * Reason Comments Med Refill Encounter Details Date Type Department Care Team (Late st Contact Info) Description 07/29/2022 Refill [facility] [address] [place] [id number] Rafael Shah MD Social History Tobacco Use [...] on filedocumented in this encounter Care Teams Greaser Helper Relationship Specialty Start Date End Date Malou Cortes MD [address] [place] [address] PCP - General 07/07/20 documented as of this encounter
--- OUTSIDE RECORDS SUMMARY | 2025-02-13 10:13 | XMS_ITS | Clinical Summary ---
Author Organization [facility] Address [address] [place] [address] Phone Care Team Providers Care General Milling Superintendent Name Role Phone Shereen Cortes MD Primary [...] apply route See Admin Instructions. Active blood-glucose meter,continuou s (Dexcom G7 Executive Team Leader) misc 1 Each by Does not apply [...] 12 HOURS MUST ADMINISTER WITH A MEAL/FOOD 12/11/19 23 Active cholecalciferol (VITAMIN D-3) 1,250 mcg (50,000 [...] TIMES A DAY FOR 14 DAYS Active sulfamethoxazol e-trimethoprim (BACTRIM DS,SEPTRA DS) 800-160 mg per tablet TAKE 1 TABLET BY MOUTH 2 TIMES A DAY STARTING DAY AFTER SURGERY Active tamsulosin (FLOMAX) 0.4 mg 24 hr capsule Active torsemide (DEMADEX) 20 mg tablet TAKE 2 TABLETS BY MOUTH EVERY DAY Active triamcinolone (KENALOG) 0.1 % lotion APPLY TO RASH TWICE DAILY FOR 3 MONTHS Active blood-glucose sensor ([employer] G7 Sensor) device Box = Kit = EA. Use one sensor every 10 days. 3 each 11 05/15/20 24 Active insulin glargine,hum.re c.anlog (Basaglar KwikPen U-100 Insulin) 100 unit/mL (3 mL) injection pen Inject 8-10 Units into the skin every morning. E11.59 05/15/20 24 Active insulin aspart (NovoLOG Flexpen U-100 Insulin) 100 unit/mL (3 mL) injection pen INJECT INTO THE SKIN 3 TIMES DAILY (BEFORE MEALS). SLIDING SCALE <100: 0 UNITS, 100-130: 3 UNITS, 131-159: 4 UNITS, 160-199: 6 UNITS, 200-229: 8 UNITS, 230-259: 10 UNITS, 260-299: 12 UNITS, 300-329: 14 UNITS, 330-359: 16 UNITS, 400-429: 18 UNITS, >429: CALL MO, MAX DOSE 54 UNITS PER DAY 15 mL 5 02/06/20 25 Active insulin aspart (NovoLOG Flexpen U-100 Insulin) 100 unit/mL (3 mL) injection pen INJECT INTO THE SKIN 3 TIMES DAILY (BEFORE MEALS). SLIDING SCALE <100: 0 UNITS 100-130: 4 UNITS 131-159: 5 UNITS 160-199: 6 UNITS 200-229: 8 UNITS 230-259: 10 UNITS 260-299: 12 UNITS 300-329: 14 UNITS 330-359: 16 UNITS 400-429: 18 UNITS >429: CALL MO - SUBCUTANEOUS 15 mL 2 05/15/20 24 2024 Discontinued Active Problems Problem Noted Date Diagnosed [...] wound of foot, complicated 08/31/2023 Severe obesity ([facility] V24, [facility] V28) 2023 Diabetes ([facility] V24, [facility] V28) 08/31/2023 ESRD (end stage renal disease) ([facility] V24, [facility] V28) 01/25/2023 Septic discitis of [...] in the future. Hypertension 08/10/2021 Diabetic retinopathy ([facility] V24, [facility] V28) 01/06/2021 Type 2 diabetes mellitus wit h eye manifestations ([facility] V24, [facility] V28) 01/06/2021 Diabetic neuropathy ([facility] V24, [facility] V28) 0 01/06/2021 Diabetic nephropathy ([facility] V24, [facility] V28) 01/06/2021 Osteoarthritis 01/06/2021 Celiac disease 01/06/2021 Chronic kidney disease (CKD) , stage III (moderate) ([facility] V24, [facility] V28) 01/06/2021 Gastroparesis 01/06/2021 Hyperlipidemia 01/06/2021 Multinodular goiter (nontoxic) 01/06/2021 Renal calculi 01/06/2021 Erectile dysfunction 01/06/2021 Inguinal hernia 01/06/2021 Overview (04/04/2024): bilateral Eating disorder 01/05/2021 S/P BKA (below knee amputati on), left ([facility] V24, [facility] V28) 01/05/2021 Overview (04/04/2024): 06/28/17, uses prosthetic leg CECIL on CPAP 08/05/2020 Overview (04/04/2024): SMS treatment polysomnogram 09/10/2021. AHI 280; BMI 40. Interpretation: Sleep apnea peers controlled at CPAP pressure of 20. There were periodic leg mid minutes of uncertain clinical significance. Type 2 diabetes mellitus ([facility] V24, [facility] V 28) 09/04/2005 Essential hypertension, benign 08/17/2005 Peripheral artery disease ([facility] V24) 08/17/19 06 Gout, unspecified 08/17/2005 Immunizations [...] kidney disease) stage 3, GFR 30-59 ml/min ([facility]/HCC V24, [facility]/HCC V28) 01/06/2021 DX:CKD (chronic kidney disea se) stage 3, GFR 30-59 ml/min ([facility]) Class 3 severe obesity due t o excess calories with serious comorbidity and body mass index (BMI) of 45.0 to 49.9 in adult ([facility]/HCC V24, [facility]/HCC V28) 08/05/2020 DX:Class 3 severe obesity due to excess calories with serious comorbidity and body mass index (BMI) of 45.0 to 49.9 in adult (HCC) Diabetic nephropathy ([facility]/ C V24, [facility]/HCC V28) 01/06/2021 DX:Diabetic nephropathy (HCC ) Diabetic neuropathy ([facility]/HCC V24, [facility]/HCC V28) 01/06/2021 DX:Diabetic neuropathy (HCC) Diabetic retinopathy ([facility]/ C V24, [facility]/HCC V28) 01/06/2021 DX:Diabetic retinopathy (HCC ) Eating [...] 01/06/2021 DX:Osteoarthriti s Peripheral artery disease ([facility] [place] V24) 08/17/2005 DX:Peripheral artery disease (HCC) Renal calculi 01/06/2021 DX:Renal calculi S/P BKA (below knee amputati on), left ([facility] V24, [facility] V28) 01/05/2021 DX:S/P BKA (below knee ampu tation), left ([facility]); COMMENT: 06/28/17, uses prosthetic leg Type 2 diabetes mellitus wit h eye manifestations ([facility] V24, [facility] V28) 01/06/2021 DX:Type 2 diabetes mellitus with eye manifestations (HCC) 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 ([facility] V24, [facility] V28) 09/04/2005 DX: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 (HCC) Type 2 diabetes mellitus wit h renal manifestations ([facility] V24, [facility] V28) 01/06/2021 DX:Type 2 diabetes mellitus with renal manifestations (HCC) Type 2 diabetes mellitus wit h vascular disease ([facility] V24, [facility] V28) 01/06/2021 DX:Type 2 diabetes [...] Value Date Recorded Sex Assigned at Male 11/14/2024 5:13 AM EDT Legal Sex Male 3:24 PM EST Gender Identity Male 11/14/2024 5:13 AM EDT Sexual Orientation Straight 11/14/2024 5: 13 AM EDT Obstetrics History Last Filed Vital Signs Vital Sign Reading Time Taken Comments Blood Pressure 121/68 05/15/2024 4:00 PM EST Pulse 96 05/15/2024 4:00 PM EST Temperature 36.2 C (97.2 F) 05/15/2024 4:00 PM EST Respiratory Rate - - Oxygen Saturation 99% 05/15/2024 4:00 PM EST Inhaled Oxygen Concentration - - Weight 125 kg (275 lb) 12/01/2023 2:17 PM EDT Height 180.3 cm (5' 11 ) 05/15/2024 4:00 PM EST Body Mass Index 38.35 12/01/2023 2:17 PM EDT Plan of Treatment Upcoming Encounters Date Type Department Care Team (Late st Contact Info) Description 05/28/2025 4:40 PM EST Office Visit Endocrinology - [place] [address] [place] [address] Khloe Raya PA [address] [place] [address] 06/13/2025 8:20 AM EST Office Visit Endocrinology - [place] [address] [place] [address] Khloe Raya PA [address] [place] [address] Health Maintenance Due Date Last Done Comments Diabetes: Annual Foot Exam 1977 Diabetes: Annual Retina Eye Exam 1977 Hepatitis B Vaccines (1 of 3 - 19+ 3-dose series) 1986 Pneumococcal Vaccine: 50+ Years (1 of 2 - PCV) 1986 Zoster Vaccines (2 of 2) 12/08/2021 10/13/2021 Colorectal Cancer Screening: Colonoscopy 06/05/2022 HIV Screening 06/05/2022 Medicare Annual Wellness Visit 06/05/2022 Social Influencers of Health Screening 06/05/2022 Diabetes: Annual Urine Albumin-Creatinine Ratio (uACR) 06/06/2022 04/23/2021 Diabetes: Annual GFR (Glomerular Filtration Rate) 10/30/2023 10/29/2022 Hypertension/CHF/CAD Annual BMP Blood Test 10/30/2023 10/29/2022 COVID-19 Vaccine ( season) 2024 06/14/2022, 10/13/2021, 09/25/2020, Additional history exists Depression Screening 06/27/2024 Diabetes: Blood Sugar Control Test (HGBA1C) 12/13/2024 06/14/2024, 06/14/2024, 2024, Additional history exists Influenza Vaccine (#1) 2025 , 04/16/2021, 08/12/2020, Additional history exists DTaP,Tdap,and Td [...] Results * Annual BMP Blood Test (10/29/2022) [facility] Annual BMP Blood Test abstracted us Historical Provider HEALTH MAINTENANCE Final Result * Hemoglobin A1c (10/29/2022) [facility] Hemoglobin A1C 5.8 <=6.5 % Blood Venous blood specimen / Unknown us Historical Provider LAB BLOOD ORDERABLES Elba l Result * Lipid panel (10/29/2022) [facility] LDL/HDL Ratio 3 0 - 4 Triglycerides 55 0 - 150 mg/dL Cholesterol 125 0 - 200 mg/dL HDL 51 >=40 mg/dL LDL Cholesterol 63 0 - 100 mg/dL Blood Venous blood specimen / Unknown Historical Provider LAB BLOOD ORDERABLES Elba l Result * Urine Albumin Creatinine Ratio (04/23/2021) Urine Albumin Creatinine Ratio abstracted Historical Provider HEALTH MAINTENANCE Final Result * Hepatitis C Screening (09/13/2000) Hepatitis C Screening abstracted Historical Provider HEALTH MAINTENANCE Final Result from Last 3 Months or Most Recently Relevant to Health Maintenance Insurance [employer] Member Subscriber Plan / Payer (Ef fective 2021-Present) Name:Moustapha Ruiz Sr. Relation to Subscriber:Self Name:Moustapha Ruiz Sr. Payer ID:[id number] Group ID:[id number] Type:Not on file Address: [place] [address] [id number] Care Teams General Milling Superintendent Relationship Specialty Start Date End Date Shereen Cortes MD [address] [place] [address] PCP - General Internal Medicine 08/10/21
== END 2025-02-13 12:13 | disposition home or self-care (01) ==
LOC: HO.HMCC 09:29
PROVIDERS: PCP Internal Medicine; Visit Provider Internal Medicine
DX: H65.01 Acute serous otitis media, right ear (principal); N18.5 Chronic kidney disease, stage 5; E11.21 Type 2 diabetes mellitus with diabetic nephropathy; Z79.4 Long term (current) use of insulin; F41.8 Other specified anxiety disorders

== ENCOUNTER → 2025-02-13 09:28 | Outpatient (BNVA) | payer OTHER, SELFPAY | PROVIDERS: PCP Internal Medicine; Visit Provider Internal Medicine | DX: E11.22 Type 2 diabetes mellitus with diabetic chronic kidney disease (principal); E11.21 Type 2 diabetes mellitus with diabetic nephropathy; I12.9 Hypertensive chronic kidney disease with stage 1 through stage 4 chronic kidney disease, or unspecified chronic kidney disease; N18.5 Chronic kidney disease, stage 5; H65.01 Acute serous otitis media, right ear; F41.8 Other specified anxiety disorders; Z99.2 Dependence on renal dialysis; Z79.4 Long term (current) use of insulin; Z89.512 Acquired absence of left leg below knee | CPT/HCPCS: 96127; 99212 ==

== ENCOUNTER 2025-05-15 15:39 | Outpatient (AMB) | payer MEDICAID, SELFPAY ==
--- OUTSIDE RECORDS SUMMARY | 2024-03-09 09:40 | XMS_ITS ---
Author Organization [facility] Address [address] [place] [address] Care Team Providers Care Ward Aide Name Role Phone Sebastian CASTRO, Shereen Primary Care Provider Donte Llamas [phone] REASON FOR VISIT Patient presents today for DYSPHAGIA, EPIGASTRIC PAIN Encounters Encounter Location Date Provider Diagnosis [facility] [address] [address] 03/09/2024 Donte Ching Plan Of Treatment No Information Progress Notes * PAKO MEDINADOB:[birth year] (60 yo M)Acc No.[id number]:03/09/2024 Progress Notes Patient: PAKO PRINCE Provider: Adriana Ching MD :1965 A ge:58 Y S ex:Male Date:03/09/2024 Address:[address] [place], [place] [id number] Pcp:Shereen Cortes MD Subjective: * Chief Complaints: * P atient presents today for DYSPHAGIA, EPIGASTRIC PAIN * The named appointment provid er may or may not be the originator of this progress note, and it is not deemed complete until electronically signed by the appointment provider. Sign off status: Pending * Provider: Adriana Ching MD Date: 0 03/09/2024 Generated for Printi ng/Faxing/eTransmitting on: 07/16/2024 04:15 AM EST
[2025-05-15 15:55] VITALS: BP 100/68; PULSE 86; RESP 16; TEMP 36.6; O2SAT 98; BMI 34.6
--- NOTE | 2025-05-15 15:55 | A.OFFPC_ITS ---
Vital Signs 05/15/25 15:55 Height 5 ft 11 in Weight 248 lb BMI 34.6 BP 100/68 Blood Pressure Location Rt brachial Position Sitting Respiration 16 Pulse 86 Pulse Source Pulse Oximeter Temp 97.8 F Temp Source Oral Pulse Oximetry (%) 98 Oxygen Delivery Method Room Air Intake Visit Reasons: Annual PE- needs A1C Intake Note: Pt is here today for his PE: Last colonoscopy 10/26/17: Last A1C 03/29/25 6.7 Allergies cephalexin (CEPHALEXIN) Allergy (Intermediate, Verified 02/13/25 10:05) UNABLE TO MOVE ENTIRE BODY, chills and fever, nausea, chills, fever, and nausea metformin (METFORMIN) Adverse Reaction (Intermediate, Verified 02/13/25 10:05) ADVISED NOT TO TAKE ANYMORE,SHAKEY,STOMACH PAINS, stomach upset, stomach upset Medication List - Last Reconciled 05/15/25 by Shereen Cortes MD acetaminophen mg PO allopurinol 100 mg PO DAILY atorvastatin 10 mg PO DAILY blood sugar diagnostic As directed bumetanide 1 mg PO BID carvedilol 12.5 mg PO Q12H diclofenac sodium 1% (Arthritis Pain (diclofenac)) 4 grams topical BID 30 days famotidine 40 mg PO DAILY PRN flash glucose sensor (FreeStyle Juanito 14 Day Sensor kit) As directed hydrocortisone 2.5% appl topical insulin aspart U-100 (Novolog FlexPen U-100 Insulin aspart) subcut insulin glargine (Lantus Solostar U-100 Insulin) 12 units subcut QAM [Left klqba-mun-yagq prosthetic As directed NS] [Mobility scooter As directed] pen needle, diabetic (BD Ultra-Fine Short Pen Needle) As directed [rollator As directed] sertraline 50 mg PO DAILY tamsulosin mg PO DAILY Tobacco use date assessed: 02/13/25 Dental Screening Dental Screen Date: 02/13/25 HPI Annual PE- needs A1C HPI Details The patient is a 60-year-old male presenting for physical exam The patient has a non-healing wound in the coccygeal area, which developed after his tailbone was removed due to an infection from a renal abscess. The wound has gotten smaller but has not closed completely. A wound VAC was previously attempted but was unsuccessful as it was evacuating stool due to the wound's proximity to the anus. Currently, the [facility]NA provides dressing changes daily, and he has an upcoming appointment with a new surgeon, Dr. Valdez, for further evaluation and management The patient has a history of type 2 diabetes with a recent A1C of 6.7 and uses a CGM. He is managed by an cargo tank mechanic, Dr. Raya at [facility], whom he will see next week. He reports good blood sugar control and has therefore stopped taking Lantus, though he continues to use NovoLog on a sliding scale. He had a diabetic eye exam last week which showed no change. The patient has end-stage renal disease and is on hemodialysis. He was on the kidney transplant list but has been on hold for nearly a year and a half due to the non-healing wound on his back. He has a new fistula that was placed last weekend. The patient's surgical history is significant for a left ecmey-pdc-dmyo amputation and amputation of all toes on his right foot. He sees a vascular specialist for his foot. Due to his amputations, he has difficulty with ambulation and is requesting a prescription for a mobility scooter. Other medical history includes benign prostatic hyperplasia, for which he takes tamsulosin, and a history of cholelithiasis, . [facility] Medical History (Updated 05/26/25 @ 22:04 by Shereen Cortes MD) History of rectal abscess Depression with anxiety Difficulty swallowing Epigastric pain syndrome Chronic right shoulder pain Spinal stenosis of lumbosacral region with radiculopathy Vitamin D deficiency Osteomyelitis of toe of right foot Chronic kidney disease, stage 5 Chronic low back pain Pericardial effusion Diabetes mellitus with retinopathy Diabetes mellitus with diabetic nephropathy, with long-term current use of insulin Dyslipidemia Diabetic gastroparesis associated with type 2 diabetes mellitus Celiac disease Diabetic neuropathy associated with type 2 diabetes mellitus Non-toxic multinodular goiter Hypertension Renal calculi Gastroparesis Hypercholesterolemia Peripheral vascular disease Surgical History Hx of BKA History of lumbar discectomy Status post amputation of lesser toe of right foot S/P laparoscopic sleeve gastrectomy Hx of colonoscopy History of below-knee amputation (~06/28/17) History of lobectomy of thyroid (~03/25/15) History of esophagogastroduodenoscopy (EGD) (~09/26/13) History of repair of ACL (~2004) History of skin graft (~1993) Family History Father Hypertension Diabetes Mother No problems noted. Sister Mental health disorder Social History Household Members: Spouse Housing: Apartment Do you presently have visiting nurse or other home services: No Alcohol intake: former Comment: refuses alarm Patient Tobacco Use Status: Never used Tobacco e-Cigarette/Vaping Use: Never Used service: No Current occupational status: disabled Cognitive needs: No Hearing needs: No Vision needs: No Questionnaire PHQ-9 Over the last 2 weeks, how often have you been bothered by any of the following problems? Depression Screening Interpretation: Positive (Currently on sertraline) Depression Screening Follow-up: Existing condition, In treatment and Community Mental Health Worker F/U Depression Screening Done: Yes Source: Developed by Drs. Donte Pope, Holly Wu, Gama So and colleagues, with an educational easton from [employer]. Thrive Questionnaire Date Thrive assessed: 02/06/25 I am a: Patient What is your living situation today?: I have a steady place to live Within the past 12 months, did the food you bought not last and you didn't have the money to get more?: Sometimes True Within the past 12 months, did you worry whether your food would run out before you got money to buy more?: Sometimes True Do you have trouble paying for medicines?: No Do you have trouble getting transportation to medical appointments?: No Do you have trouble paying your heating and electricity bill?: No Do you have trouble taking care of your child, family member or friend?: No Do you have trouble with day-to-day activities such as bathing, preparing meals, shopping, managing finances, etc.?: Yes Are you currently unemployed and looking for a job?: No Are you interested in more education?: No Please select the resources that you would like help with: None Currently or been in a relationship where the following occur: No concerns reported THRIVE Score: 2 SALUD-7 AMB Questionnaire SALUD-7 Date SALUD - 7 assessed: 02/13/25 Source: Developed by Drs. Donte Pope, Holly Wu, Gama So and colleagues, with an educational easton from [employer]. Review of Systems Const Denies chills, Denies fever(s), Denies headache(s) and Reports malaise Eyes Details: Goes to [facility] ENT Reports as per HPI, Reports dizziness and Denies headache(s) Card Denies chest pain, Denies dyspnea and Denies other (Palpitations) Resp Denies cough, Denies dyspnea, Denies wheezing and Denies other ( shortness of breath) GI Reports as per HPI Details: On hemodialysis 3 times a week Musc Details: See HPI Skin/Breast Denies rash Neuro Reports as per HPI, Reports dizziness, Denies headache(s) and Denies paresthesias Psych Reports no additional complaints and Reports as per HPI Endo Reports as per HPI Flakito/Lymph Reports no additional complaints Aller/Immun Denies wheezing Physical exam (Primary Care) Vital Signs: Last Vital Signs Temp 97.8 F 05/15/25 15:55 Pulse 86 05/15/25 15:55 Resp 16 05/15/25 15:55 BP 100/68 05/15/25 15:55 Pulse Ox 98 05/15/25 15:55 Oxygen Delivery Method Room Air 05/15/25 15:55 BMI result Body Mass Index 34.6 Tobacco/Smoking Status: Tobacco use Status Tobacco use date assessed 02/13/25 05/15/25 15:55 Patient Tobacco Use Status Never used Tobacco 05/15/25 15:55 e-Cigarette/Vaping Use Never Used 05/15/25 15:55 Depression Screening Interpretation: Positive (Currently on sertraline) Depression Screening Follow-up: Existing condition, In treatment and Community Mental Health Worker F/U Thrive Assessment: Date of Thrive Assessment Date Thrive assessed 02/06/25 05/15/25 15:55 Currently or been in a relationship where the following occur: No concerns reported Const General: alert Nutritional Appearance: obese morbidly obese Orientation/consciousness: patient oriented x3 HENMT Other: Ambulatory with assistance of his left leg prosthesis, in no acute distress, accompanying patient Face and sinus: Yes face symmetric Mouth: Normal oral and palatal mucosa present and moist mucous membranes Neck Neck: Yes full ROM, Yes no lymphadenopathy and Yes supple Resp Effort & Inspection: normal respiratory effort and able to speak in complete sentences Auscultation: clear to auscultation bilaterally Cardio Rate: regular rate Rhythm: regular rhythm Heart sounds: S1 normal heart sound present and S2 normal heart sound present GI Inspection: Yes obesity Palpation (GI): Soft to palpation, nontender and no guarding Auscultation: normoactive bowel sounds Skin Other: Dressing in place over coccygeal and anal area, dry with no seepage Neuro General: patient oriented x3 and no focal motor deficits Extrem Other: Left leg prosthesis intact, all toes amputated on right Psych Appearance: grossly normal and well kempt Mental Status: mental status grossly normal Speech and movement: Normal speech and movement present and Slowed movement present (Neuro) Affect: normal affect Coding Level of Care Code Est Pt Prev Care 40-64y(12200) Diagnoses Annual visit for general adult medical examination with abnormal findings Z 00.01 Hypertension I10 Dyslipidemia E78.5 Diabetes mellitus with diabetic nephropathy, with long-term current use of insulin E11.21; Z79.4 Chronic kidney disease, stage 5 N18.5 Lumbar radiculopathy M54.16 Recurrent falls while walking R29.6 Spinal stenosis of lumbosacral region with radiculopathy M48.07; M54.17 Depression with anxiety F41.8 Chronic wound T14.8XXA Assessment & Plan Assessment & Plan (1) Annual visit for general adult medical examination with abnormal findings: Code(s): Z00.01 - Encounter for general adult medical examination with abnormal findings Plan: Recent labs obtained during hemodialysis reviewed with patient . Continue with diabetes retinopathy screening yearly.. Last colonoscopy screening was done by Dr. Ching in 2018, repeat due again in 2027. Already received his Pneumovax 23 vaccination and Tdap, reminded to get flu and COVID vaccine but patient declined (2) Hypertension: Code(s): I10 - Essential (primary) hypertension Category: Medical Plan: Currently on carvedilol 12.5 mg daily and bumetanide 1 mg twice a day, on hemodialysis (3) Dyslipidemia: Code(s): E78.5 - Hyperlipidemia, unspecified Category: Medical Plan: Currently on atorvastatin 10 mg daily with latest fasting lipids drawn at hemodialysis showed results within normal limits (4) Diabetes mellitus with diabetic nephropathy, with long-term current use of insulin: Comment: [facility] Code(s): E11.21 - Type 2 diabetes mellitus with diabetic nephropathy; Z79.4 - adjunct faculty for medical terminology (current) use of insulin Category: Medical Plan: Followed at endocrine clinic in [place] with Dr. Raya only taking NovoLog FlexPen , patient states he stopped taking his Lantus as he has been getting hypoglycemic attacks (5) Chronic kidney disease, stage 5: Comment: Followed by Dr. Catalino Mancia Code(s): N18.5 - Chronic kidney disease, stage 5 Category: Medical Plan: Currently on hemodialysis 3 times a week, followed by Dr. Mancia (6) Lumbar radiculopathy: Code(s): M54.16 - Radiculopathy, lumbar region Category: Medical Plan: Takes acetaminophen as needed (7) Recurrent falls while walking: Code(s): R29.6 - Repeated falls Category: Medical Plan: Patient requests for mobility scooter, advised to check with medical supply store what kind of scooter he needs (8) Spinal stenosis of lumbosacral region with radiculopathy: Code(s): M48.07 - Spinal stenosis, lumbosacral region; M54.17 - Radiculopathy, lumbosacral region Category: Medical Plan: Patient only taking Tylenol as needed for pain control (9) Depression with anxiety: Code(s): F41.8 - Other specified anxiety disorders Category: Medical Plan: Continued on sertraline 50 mg daily (10) Chronic wound: Code(s): T14.8XXA - Other injury of unspecified body region, initial encounter Plan: The patient has a chronic, non-healing wound from a prior coccygectomy for a renal abscess. He is receiving daily dressing changes from the [facility]NA. This wound is preventing him from being active on the kidney transplant list. Patient has an upcoming appointment with Dr. Valdez for surgical evaluation and possible debridement to promote healing. Medications: New carvedilol must administer with a meal/food 12.5 mg PO Q12H
--- OUTSIDE RECORDS SUMMARY | 2025-05-16 04:15 | XMS_ITS | Clinical Summary ---
Author Organization [facility] Address [address] [place] [address] Phone Care Team Providers Care Cancer Program Coordinator Name Role Phone Malou Cortes MD Primary Care Provider [phone]- [phone] Allergies Active Allergy Reactions Criticality Noted Date Comments Cephalexin Other (see comments) 08/29/2020 Metformin Other (see comments) 08/29/2020 Medications Toumando SoloStar 300 UNIT/ML solution pen-injector INJECT 10 [...] 23 Active D3 Super Strength 50 MCG (1999 UT) capsule Take 1 capsule by mouth 1 (one) time each day 12/11/19 23 Active ketorolac (ACULAR) 0.5 % ophthalmic solution PUT 1 DROP IN LEFT EYE 4 TIMES A DAY 11/20/19 23 Active midodrine (PROAMATINE) 5 MG tablet Take 1 tablet (5 mg total) by mouth in the morning and 1 tablet (5 mg total) in the evening and 1 tablet (5 mg total) before bedtime. Hold if SBP is greater than 120.. 270 tablet 1 02/14/20 24 Active sevelamer carbonate (RENVELA) 800 MG tablet Take 2 tablets (1,600 mg total) by mouth 1 (one) time each day Swallow tablet whole; do not crush, break, or chew. 180 tablet 3 05/21/20 24 Active gabapentin (NEURONTIN) 300 MG capsule Take 1 capsule (300 mg total) by mouth in the morning. 30 capsule 11 11/09/19 25 026 Active B Yinmnvg-N-Jlmp c Acid (B complex-vitami n C-folic acid) 1 MG tablet Take 1 tablet by mouth 1 (one) time each day with breakfast 30 tablet 11 11/09/19 25 026 Active furosemide (LASIX) 80 MG tablet TAKE 1 TABLET BY MOUTH EVERY DAY 90 tablet 2 12/13/19 25 Active midodrine (PROAMATINE) 10 MG tablet TAKE 1 TABLET BY MOUTH EVERY 12 HOURS IF NEEDED (TAKE FOR SYSTOLIC BLOOD PRESSURE LESS THAN 100) 180 tablet 1 12/13/19 25 Active HumuLIN N 100 UNIT/ML injection INJECT 34 UNITS UNDER THE SKIN EVERY NIGHT 30 mL 1 02/12/20 25 Active allopurinol (ZYLOPRIM) 100 MG tablet TAKE 1 TABLET BY MOUTH EVERY DAY 90 tablet 1 03/11/20 25 Active amLODIPine (NORVASC) 5 MG tablet TAKE 1 TABLET BY MOUTH ONCE DAILY 90 tablet 3 03/11/20 25 Active carvedilol (COREG) 6.25 MG tablet TAKE 2 TABLETS BY MOUTH EVERY MORNING & 2 TABLETS EVERY EVENING WITH MEALS. 360 tablet 1 05/03/20 25 Active tamsulosin (Flomax) 0.4 MG 24 hr capsule Take 1 capsule (0.4 mg total) by mouth 1 (one) time each day 90 capsule 3 05/03/20 25 026 Active tamsulosin (Flomax) 0.4 MG 24 hr capsule Take 0.4 mg by mouth 1 (one) time each day 025 Discontinued(Re order (does not appear on AVS)) carvedilol (COREG) 6.25 MG tablet Take 2 tablets (12.5 mg total) by mouth in the morning and 2 tablets (12.5 mg total) in the evening. Take with meals. 180 tablet 3 10/05/19 25 025 Discontinued Active Problems Problem Noted Date [...] Encounters Date Type Department Care Team Description 05/15/2025 Treatment [facility] [address] [place] [phone] Gualberto Ruiz MD End stage renal disease; Dependence on renal dialysis 05/08/2025 Treatment [facility] [address] [place] [phone] Gualberto Ruiz MD End stage renal disease; Dependence on renal dialysis 05/03/2025 Treatment [facility] [address] [phone] Gualberto Ruiz MD End stage renal disease; Dependence on renal dialysis 05/03/2025 Orders Only [facility] [address] [place] [phone] Gualberto Ruiz MD 05/03/2025 Refill [facility] [address] [facility] [address] [place] [address] Gualberto Ruiz MD 04/22/2025 Treatment [facility] [place] [id number] [facility] [address] [place] [phone] Gualberto Ruiz MD End stage renal disease; Dependence on renal dialysis 04/15/2025 Treatment [facility] [address] [place] [phone] Gualberto Ruiz MD End stage renal disease; Dependence on renal dialysis 04/08/2025 Treatment [facility] [address] [address] Gualberto Ruiz MD End stage renal disease; Dependence on renal dialysis 04/01/2025 Treatment [facility] [address] [address] Gualberto Ruiz MD End stage renal disease; Dependence on renal dialysis 03/20/2025 Treatment [facility] [address] [phone] Gualberto Ruzi MD End stage renal disease; Dependence on renal dialysis 03/13/2025 Treatment [facility] [address] [address] Gualberto Ruiz MD End stage renal disease; Dependence on renal dialysis 03/10/2025 Refill [facility] [address] [address] Gualberto Ruiz MD 02/27/2025 Treatment [facility] [address] [address] Gualberto Ruiz MD End stage renal disease; Dependence on renal dialysis 02/22/2025 Orders Only [facility] [address] [facility] [address] [place] [address] Kiki Gayle RN 02/20/2025 Treatment [facility] [address] [address] Gualberto Ruiz MD End stage renal disease; Dependence on renal dialysis 02/13/2025 Treatment [facility] [address] [address] Gualberto Ruiz MD End stage renal disease; Dependence on renal dialysis from Last 3 Months Immunizations Immunization Administration [...] Exam 08/12/2024 Diabetes: Visual Foot Exam 08/12/2024 Influenza Vaccine (#1) 2025 04/16/2021, 2020 Diabetes: Hemoglobin A1C 06/27/2025 025, 01/02/2025, 09/25/2024, Additional history exists Procedures Procedure Name Priority Date/Time Associated Diagnosis Comments INCORRECT TUBE Routine 05/10/2025 3:00 AM EST HEPATITIS B SURFACE ANTIGEN W/REFL CONFIRM Routine 05/03/2025 3:00 AM EST FERRITIN Routine 05/03/2025 3:00 AM EST TRANSFERRIN SATURATION Routine 3:00 AM EST PROTEIN, TOTAL, SERUM Routine 05/03/2025 3:00 AM EST MAGNESIUM Routine 05/03/2025 3:00 AM EST ELECTROLYTE PANEL Routine 05/03/2025 3:0 0 AM EST LIH (HC) Routine 05/03/2025 3:00 AM EST LACTATE DEHYDROGENASE Routine 05/03/2025 3:00 AM EST CREATININE, SERUM Routine 05/03/2025 3:0 0 AM EST GLUCOSE, RANDOM Routine 05/03/2025 3:00 AM EST BUN/CREATININE RATIO Routine 05/03/2025 3:00 AM EST BILIRUBIN, TOTAL Routine 05/03/2025 3:00 AM EST AST Routine 05/03/2025 3:00 AM EST ALT Routine 05/03/2025 3:00 AM EST CALCIUM PHOSPHORUS PRODUCT, ADJUSTED (HC) Routine 05/03/2025 3:00 AM EST ALKALINE PHOSPHATASE Routine 05/03/2025 3:00 AM EST CBC AND DIFFERENTIAL Routine 05/03/2025 3:00 AM EST KT/V NATURAL LOG, URR (HC) Routine 05/03/2025 3:00 AM EST COLLECTION DATE (HC) Routine 05/03/2025 3:00 AM EST HEMOGLOBIN AND HEMATOCRIT, BLOOD Routine 04/10/2025 3:00 AM EDT LIH (HC) Routine 03/29/2025 3:00 AM EDT KT/V NATURAL LOG, URR (HC) Routine 03/29/2025 3:00 AM EDT UNSPUN TUBE (HC) Routine 03/27/2025 3:00 AM EDT HEPATITIS B SURFACE ANTIGEN W/REFL CONFIRM Routine 03/27/2025 3:00 AM EDT TRANSFERRIN SATURATION Routine 3:00 AM EDT PROTEIN, TOTAL, SERUM Routine 03/27/2025 3:00 AM EDT MAGNESIUM Routine 03/27/2025 3:00 AM EDT LIPID PANEL Routine 03/27/2025 3:00 AM EDT ELECTROLYTE PANEL Routine 03/27/2025 3:0 0 AM EDT LIH (HC) Routine 03/27/2025 3:00 AM EDT LACTATE DEHYDROGENASE Routine 03/27/2025 3:00 AM EDT GLUCOSE, RANDOM Routine 03/27/2025 3:00 AM EDT CREATININE, SERUM Routine 03/27/2025 3:0 0 AM EDT BUN/CREATININE RATIO Routine 03/27/2025 3:00 AM EDT AST Routine 03/27/2025 3:00 AM EDT BILIRUBIN, TOTAL Routine 03/27/2025 3:00 AM EDT ALT Routine 03/27/2025 3:00 AM EDT CALCIUM PHOSPHORUS PRODUCT, ADJUSTED (HC) Routine 03/27/2025 3:00 AM EDT ALKALINE PHOSPHATASE Routine 03/27/2025 3:00 AM EDT FERRITIN Routine 03/27/2025 3:00 AM EDT PTH, INTACT Routine 03/27/2025 3:00 AM EDT HEMOGLOBIN A1C Routine 03/27/2025 3:00 AM EDT CBC AND DIFFERENTIAL Routine 03/27/2025 3:00 AM EDT KT/V NATURAL LOG, URR (HC) Routine 03/27/2025 3:00 AM EDT HEMOGLOBIN Routine 03/25/2025 3:00 AM EDT HEMOGLOBIN Routine 03/20/2025 3:00 AM EDT HEMOGLOBIN AND HEMATOCRIT, BLOOD Routine 03/13/2025 3:00 AM EDT TRANSFERRIN SATURATION Routine 3:00 AM EDT PROTEIN, TOTAL, SERUM Routine 02/27/2025 3:00 AM EDT MAGNESIUM Routine 02/27/2025 3:00 AM EDT LIH (HC) Routine 02/27/2025 3:00 AM EDT ELECTROLYTE PANEL Routine 02/27/2025 3:0 0 AM EDT GLUCOSE, RANDOM Routine 02/27/2025 3:00 AM EDT LACTATE DEHYDROGENASE Routine 02/27/2025 3:00 AM EDT CREATININE, SERUM Routine 02/27/2025 3:0 0 AM EDT BUN/CREATININE RATIO Routine 02/27/2025 3:00 AM EDT BILIRUBIN, TOTAL Routine 02/27/2025 3:00 AM EDT AST Routine 02/27/2025 3:00 AM EDT ALT Routine 02/27/2025 3:00 AM EDT CALCIUM PHOSPHORUS PRODUCT, ADJUSTED (HC) Routine 02/27/2025 3:00 AM EDT ALKALINE PHOSPHATASE Routine 02/27/2025 3:00 AM EDT HEPATITIS B SURFACE ANTIGEN W/REFL CONFIRM Routine 02/27/2025 3:00 AM EDT FERRITIN Routine 02/27/2025 3:00 AM EDT CBC AND DIFFERENTIAL Routine 02/27/2025 3:00 AM EDT KT/V NATURAL LOG, URR (HC) Routine 02/27/2025 3:00 AM EDT HEMOGLOBIN AND HEMATOCRIT, BLOOD Routine 02/13/2025 3:00 AM EDT from Last 3 Months Results * Incorrect Tube (05/10/2025 3:00 AM EST) Incorrect Tube Lavender [facility] Comment: Received a lavender tube instead of a tall green tube. Unable to perform automated chemistry testing. 05/10/2025 3:00 AM EST us Gualberto Ruiz MD LAB BLOOD ORDERABLES Final Resul t [facility] [address] [place] [address] * Collection Date (05/03/2025 3:00 AM EST) Collection Date See Comment [facility] Comment: Patient sample received may exceed specimen stability, based on the collection date electronically provided. When reviewing patient results, verify collection information and consider specimen stability before acting on any critical or panic results. 05/03/2025 3:00 AM EST us Gualberto Ruiz MD LAB [id number] ICITED RESULTS Final Result Performing Organization Address [facility] de Phone Number [facility] [address] [place] [address] * LIH (05/03/2025 3:00 AM EST) Only the most recent of4 resultswithin the time period is included. Lipemia Normal Normal [facility] Icterus Normal Normal [facility] Hemolysis Normal Normal [facility] 05/03/2025 3:00 AM EST 05/06/2025 1:19 PM EST us Gualberto Ruiz MD LAB [id number] ICITED RESULTS Final Result Performing Organization Address [facility] de Phone Number [facility]PS [facility] [address] [place] [address] * (ABNORMAL) Kt/V Natural Log, URR (05/03/2025 3:00 AM EST) Only the most recent of4 resultswithin the time period is included. Treatment Time 246 min [facility] Pre-Weight, lb 113.3 kg [facility] Post-Weight, lb 109.0 kg [facility] Ultrafiltration Rate 10 <=13 mL/kg/hr [facility] Comment: Recommend achieving Ultrafiltration Rate (UFR) <=10 mL/kg/hr References: Yina SOSA et al. Kidney Int. 2010; 79(2):250-257 BUN 54(H) 7 - 25 mg/dL [facility] BUN Post Dialysis 15 7 - 25 mg/dL [facility] UREA REDUCTION RATIO (%) 72 >=65 % [facility] Kt/V Natural Log 1.53 >=1.2 [facility] 05/03/2025 3:00 AM EST 05/06/2025 1:19 PM EST us Gualberto Ruiz MD LAB [id number] ICITED RESULTS Final Result Performing Organization Address [facility] Co de Phone Number [facility] [address] [place] [address] * (ABNORMAL) Calcium Phosphorus Product, Adjusted (05/03/2025 3:00 AM EST) Only the most recent of3 resultswithin the time period is included. Albumin 4.2 3.6 - 5.4 g/dL [facility] Calcium 9.2 8.6 - 10.3 mg/dL [facility] Phosphorus, Serum 9.2(H) 2.5 - 5.0 mg/dL [facility] Ca*PO4 84.6(A) <55.0 mg2/dL2 [facility] Calcium, Adjusted Total 9.2 8.6 - 10.3 mg/dL [facility] CA*PO4 CORRCTD 84.6(A) <55.0 mg2/dL2 [facility] 05/03/2025 3:00 AM EST 05/06/2025 1:19 PM EST us Gualberto Ruiz MD LAB [id number] ICITED RESULTS Final Result Performing Organization Address [facility] de Phone Number [facility] [address] [place] [address] * Hepatitis B Surface Ag w/Reflex Confirmation (05/03/2025 3:00 AM EST) Only the most recent of3 resultswithin the time period is included. Hep B Surface Antigen Negative Negative [facility] 05/03/2025 3:00 AM EST 05/06/2025 1:19 PM EST us Gualberto Ruiz MD LAB BLOOD ORDERABLES Final Resul t Performing Organization Address [facility] Co de Phone Number [facility] [address] [place] [address] * BUN/CREATININE RATIO (05/03/2025 3:00 AM EST) Only the most recent of3 resultswithin the time period is included. Pathologist [facility] BUN/Creatinine Ratio 6.1 <=23.0 [facility] 05/03/2025 3:00 AM EST 05/06/2025 1:19 PM EST us Gualberto Ruiz MD LAB [id number] ICITED RESULTS Final Result Performing Organization Address [facility] de Phone Number [facility] [address] [place] [address] * (ABNORMAL) TSAT (05/03/2025 3:00 AM EST) Only the most recent of3 resultswithin the time period is included. Pathologist [facility] Iron 57(L) 65 - 175 ug/dL [facility] Transferrin 158(L) 215 - 365 mg/dL [facility] TIBC 221 211 - 406 ug/dL [facility] Iron Saturation (TSat) 26 22 - 52 % [facility] 05/03/2025 3:00 AM EST 05/06/2025 1:19 PM EST us Gualberto Ruiz MD LAB BLOOD ORDERABLES Final Resul t Performing Organization Address [facility] de Phone Number [facility] [address] [place] [address] * (ABNORMAL) CBC and Differential (05/03/2025 3:00 AM EST) Only the most recent of3 resultswithin the time period is included. Pathologist [facility] DIFFERENTIAL MANUAL, 2 Not Indicated [facility] White Blood Cells 7.6 4.2 - 9.1 K/uL [facility] RBC 3.80(L) 4.63 - 6.08 M/uL [facility] Hgb 11.5(L) 13.7 - 17.5 g/dL [facility] Hemoglobin x 3 34.5(L) 41.1 - 52.5 g/dL [facility] Hematocrit 37.6(L) 40.1 - 51.0 % [facility] MCV 98.9(H) 79.0 - 92.2 fL [facility] MCH 30.3 25.7 - 32.2 pg [facility] MCHC 30.6(L) 32.3 - 36.5 g/dL [facility] RDW 14.7(H) 11.6 - 14.4 % [facility] Platelets 185 163 - 337 K/uL [facility] MPV 12.9 9.1 - 13.0 fL [facility] Neutrophils Relative 60.7 34.0 - 67.9 % [facility] Lymphocytes Relative 26.9 21.8 - 53.1 % [facility] Monocytes 9.2 5.3 - 12.2 % [facility] Eosinophils Relative 0.8 0.8 - 7.0 % [facility] Basophils Relative 0.7 0.2 - 1.2 % [facility] Immature Granulocytes 1.7(H) 0.0 - 1.0 % [facility] 05/03/2025 3:00 AM EST 05/06/2025 1:24 PM EST us Gualberto Ruiz MD LAB BLOOD ORDERABLES Final Resul t Performing Organization Address [facility]/ZIP Co de Phone Number [facility] [address] [place] [address] * (ABNORMAL) ALT (05/03/2025 3:00 AM EST) Only the most recent of3 resultswithin the time period is included. ALT (SGPT) <7(L) 10 - 49 U/L [facility] 05/03/2025 3:00 AM EST 05/06/2025 1:19 PM EST us Gualberto Ruiz MD LAB BLOOD ORDERABLES Final Resul t [facility] [address] [place] [address] * AST (05/03/2025 3:00 AM EST) Only the most recent of3 resultswithin the time period is included. AST (SGOT) 10 <34 U/L [facility] 05/03/2025 3:00 AM EST 05/06/2025 1:19 PM EST us Gualberto Ruiz MD LAB BLOOD ORDERABLES Final Resul t Performing Organization Address [facility] Co de Phone Number [facility] [address] [place] [address] * Protein, total (05/03/2025 3:00 AM EST) Only the most recent of3 resultswithin the time period is included. Total Protein 7.7 6.4 - 8.9 g/dL [facility] 05/03/2025 3:00 AM EST 05/06/2025 1:19 PM EST us Gualberto Ruiz MD LAB BLOOD ORDERABLES Final Resul t Performing Organization Address [facility] de Phone Number [facility] [address] [place] [address] * Alkaline phosphatase (05/03/2025 3:00 AM EST) Only the most recent of3 resultswithin the time period is included. Alkaline Phosphatase 92 46 - 116 U/L [facility] 05/03/2025 3:00 AM EST 05/06/2025 1:19 PM EST us Gualberto Ruiz MD LAB BLOOD ORDERABLES Final Resul t Performing Organization Address [facility] de Phone Number [facility] [address] [place] [address] * Magnesium (05/03/2025 3:00 AM EST) Only the most recent of3 resultswithin the time period is included. Magnesium 2.4 1.9 - 2.7 mg/dL [facility] 05/03/2025 3:00 AM EST 05/06/2025 1:19 PM EST us Gualberto Ruiz MD LAB BLOOD ORDERABLES Final Resul t Performing Organization Address [facility] Co de Phone Number [facility] [address] [place] [address] * (ABNORMAL) Lactate dehydrogenase (05/03/2025 3:00 AM EST) Only the most recent of3 resultswithin the time period is included. LDH 262(H) 120 - 246 U/L [facility] 05/03/2025 3:00 AM EST 05/06/2025 1:19 PM EST us Gualberto Ruiz MD LAB BLOOD ORDERABLES Final Resul t Performing Organization Address [facility] de Phone Number [facility] [address] [place] [address] * Glucose, random (05/03/2025 3:00 AM EST) Only the most recent of3 resultswithin the time period is included. Glucose 99 70 - 99 mg/dL [facility] Comment: ADA guidelines outline the following fasting glucose ranges: Normal: <100 Prediabetes: 100-125 Diabetes: >125 05/03/2025 3:00 AM EST 05/06/2025 1:19 PM EST us Gualberto Ruiz MD LAB BLOOD ORDERABLES Final Resul t Performing Organization Address [facility] de Phone Number [facility] [address] [place] [address] * (ABNORMAL) Ferritin (05/03/2025 3:00 AM EST) Only the most recent of3 resultswithin the time period is included. Ferritin 644(H) 22 - 322 ng/mL [facility] 05/03/2025 3:00 AM EST 05/06/2025 1:19 PM EST us Gualberto Ruiz MD LAB BLOOD ORDERABLES Final Resul t Performing Organization Address [facility] de Phone Number [facility] [address] [place] [address] * (ABNORMAL) Creatinine, serum (05/03/2025 3:00 AM EST) Only the most recent of3 resultswithin the time period is included. Creatinine 8.79(H) 0.70 - 1.30 mg/dL [facility] 05/03/2025 3:00 AM EST 05/06/2025 1:19 PM EST us Gualberto Ruiz MD LAB BLOOD ORDERABLES Final Resul t Performing Organization Address [facility] de Phone Number [facility] [address] [place] [address] * Bilirubin, total (05/03/2025 3:00 AM EST) Only the most recent of3 resultswithin the time period is included. Total Bilirubin 0.4 0.3 - 1.2 mg/dL [facility] 05/03/2025 3:00 AM EST 05/06/2025 1:19 PM EST us Gualberto Ruiz MD LAB BLOOD ORDERABLES Final Resul t Performing Organization Address [facility] de Phone Number [facility] [address] [place] [address] * (ABNORMAL) Electrolyte panel (05/03/2025 3:00 AM EST) Only the most recent of3 resultswithin the time period is included. Sodium 139 136 - 145 mEq/L [facility] Potassium 5.8(H) 3.4 - 5.0 mEq/L [facility] Chloride 101 98 - 107 mEq/L [facility] Bicarbonate (CO2) 19(L) 21 - 31 mEq/L [facility] Anion Gap 19(H) 3 - 14 mEq/L [facility] 05/03/2025 3:00 AM EST 05/06/2025 1:19 PM EST us Gualberto Ruiz MD LAB BLOOD ORDERABLES Final Resul t Performing Organization Address [facility] de Phone Number [facility] [address] [place] [address] * (ABNORMAL) Hemoglobin and hematocrit (04/10/2025 3:00 AM EDT) Only the most recent of3 resultswithin the time period is included. Hgb 11.6(L) 13.7 - 17.5 g/dL [facility] Hematocrit 36.7(L) 40.1 - 51.0 % [facility] Hemoglobin x 3 34.8(L) 41.1 - 52.5 g/dL [facility] 04/10/2025 3:00 AM EDT 04/11/2025 1:35 PM EDT us Gualberto Ruiz MD LAB BLOOD ORDERABLES Final Resul t Performing Organization Address [facility] Co de Phone Number [facility] [address] [place] [address] * Unspun Tube (03/27/2025 3:00 AM EDT) Unspun Tube Post Gold/Whit e [facility] Comment:Received uncentrifug ed specimen. Unable to perform testing. 03/27/2025 3:00 AM EDT us Gualberto Ruiz MD LAB [id number] ICITED RESULTS Final Result Performing Organization Address [facility] de Phone Number [facility] [address] [place] [address] * (ABNORMAL) PTH, Intact (03/27/2025 3:00 AM EDT) PTH, Intact 757(H) 160 - 721 pg/mL [facility] Comment: Suggested (KDIGO) ESRD maintenance range is two to nine times the upper normal limit (80.1 pg/mL) for the laboratory. 03/27/2025 3:00 AM EDT 03/28/2025 2:16 PM EDT us Gualberto Ruiz MD LAB BLOOD ORDERABLES Final Resul t Performing Organization Address [facility] de Phone Number [facility] [address] [place] [address] * (ABNORMAL) Hemoglobin A1c (03/27/2025 3:00 AM EDT) Hemoglobin A1C 6.7(H) <5.7 % [facility] Comment: Methodology: Enzymatic Normal: <5.7% Prediabetes: 5.7-6.4% Diabetes: >6.4% Diabetic Glucose Control Evaluation: Therapeutic action suggested at >8.0% ADA recommends a glycemic goal of <7.0% 03/27/2025 3:00 AM EDT 03/28/2025 2:29 PM EDT Gualberto Ruiz MD LAB BLOOD ORDERABLES Final Resul t Performing Organization Address [facility] de Phone Number [facility] [address] [place] [address] * (ABNORMAL) Lipid panel (03/27/2025 3:00 AM EDT) Cholesterol 126 mg/dL [facility] Comment: Optimal: <200 Borderline: 200-239 High Risk: >239 Triglycerides 88 mg/dL [facility] Comment: Optimal: <150 Borderline: 150-200 High Risk: >200 HDL 48(L) mg/dL [facility] Comment: Optimal: >59 Borderline: 40-59 High Risk: <40 LDL-Calc 60 mg/dL [facility] Comment: Optimal: <100 Borderline: 100-159 High Risk: >159 VLDL Cholesterol Sukh 18 mg/dL [facility] Comment: Optimal: <30 Borderline: 30-40 High Risk: >40 Chol/HDL Ratio 2.6 [facility] Comment: Optimal: <3.3 High Risk: >6.2 03/27/2025 3:00 AM EDT 03/28/2025 2:16 PM EDT Gualberto Ruiz MD LAB BLOOD ORDERABLES Final Resul t Performing Organization Address [facility] de Phone Number [facility] [address] [place] [address] * (ABNORMAL) Hemoglobin (03/25/2025 3:00 AM EDT) Only the most recent of2 resultswithin the time period is included. Hgb 11.4(L) 13.7 - 17.5 g/dL [facility] Hemoglobin x 3 34.2(L) 41.1 - 52.5 g/dL [facility] 03/25/2025 3:00 AM EDT 03/27/2025 12:55 PM EDT us Gualberto Ruiz MD LAB BLOOD ORDERABLES Final Resul t TRISH ASCROSALINA [facility] [address] [place] [address] from Last 3 Months Insurance MCR ([id number]) [place] [id number] [facility] ([id number]) [place] [id number] Formerly [facility] Dual SNP ([id number]) [place] [id number] Care Teams Cancer Program Coordinator Relationship Specialty Start Date End Date Malou Cortes MD PCP - General 07/07/20
--- OUTSIDE RECORDS SUMMARY | 2025-05-16 04:15 | XMS_ITS | Encounter Summary ---
Author Organization [facility] Address [address] [place] [address] Phone Care Team Providers Care Tong Hooker Name Role Phone Malou Cortes MD Primary Care Provider [phone] Encounter Details Date Type Department Care Team (Late st Contact Info) Description 11/14/2024 Orders Only [facility] [address] [place] [id number] Adrianne Ness [address] [place] [phone] Social History Tobacco Use Types Packs/Day Years [...] on filedocumented in this encounter Care Teams Tong Hooker Relationship Specialty Start Date End Date Malou Cortes MD PCP - General 07/07/20 documented as of this encounter
--- OUTSIDE RECORDS SUMMARY | 2025-05-16 04:15 | XMS_ITS | Patient Health Record ---
Author Organization [facility] Address [address] [place] [address] Care Team Providers Care Didactic Program In Dietetics Director Name Role Phone hSereen Cortes MD Primary Care Provider Donte Llamas Unavailable [phone] Allergies Allergen (clinical drug ingredient) Drug/Non Drug Allergy documented on EMR Reaction Allergy Type Onset Date Status sudafedamine (uncoded) Unknown Allergy Active metformin Metformin HCl shakey /stomach pains Drug Allergy Active vancomycin Vancomycin HCl in NaCl Unknown Drug Allergy Active Reason For Referral No Information Medications Medication SIG (Take, Route, Frequency, Duration) Notes Start Date End Date Status Atorvastatin Calcium 40 MG Tablet 1 tablet Orally Once a day A ctive amLODIPine Besylate 10 MG Tablet 1 tablet Orally Once a day A ctive Lisinopril 10 MG Tablet 1 tablet Orally Once a day Active Lantus 100 UNIT/ML Solution 130 inits Subcutaneous daily Active Xifaxan 550 MG Tablet 1 tablet Orally Th ree times a day; Duration: 14 days 08/30/2017 Active Vitamin D3 Super Strength 2000 UNIT Tablet 1 tablet Orally Once a day Active Trulicity 1.5 MG/0.5ML Solution Pen-injector as directed Subcutaneous on Fridays Active Gabapentin 600 MG Tablet 1 tablet Orally Twice a day Active HumaLOG 100 UNIT/ML Solution 10-18 units Subcutaneous 10 minutes before meals Active Social History Social History Additional Details Category Social Info Options Details Miscellaneous: Marital status: Occupation: unemployed Section Notes: Nonsmoker; no sig alcohol Nonsmoker; no sig alcohol Nonsmoker; no sig alcohol Problems Problem Type SNOMED Code ICD Code Onset Dates Problem Status W/U Status Risk Notes Problem Screening for malignant neoplasm of colon (128821733) Encounter for screening for malignant neoplasm of colon (Z12.11) Active confirmed Problem Abdominal bloating (121686513) Abdominal bloating (R14.0) Active confirmed Problem Epigastric pain (75813790) Abdominal pain, epigastric (R10.13) Active confirmed Problem Left upper quadrant pain (733184404) Abdominal pain, left upper quadrant (R10.12) Active confirmed Problem Small bowel bacterial overgrowth syndrome (749799647) Small intestinal bacterial overgrowth (K63.89) Active confirmed Plan Of Treatment Pending Test Test Name [...] Insured Coverage Start Date Coverage End Date [facility] [address] [place] [address] [id number] PAKO MEDINA Self - patient is the insured Medical (General) History Medical History History ICD Code IDDM--sees Dr. Gaytan Hypertension Denies [place],CVA,Lung disease,renal disease Hyperlipidemia Neuropathy in LE's Sleep [...]
--- OUTSIDE RECORDS SUMMARY | 2025-05-16 04:15 | XMS_ITS | Encounter Summary ---
Author Organization [employer] [facility] Address [address] [facility] 7[address] h Floor [place] [id number] Care Team Providers Care Lubricating Specialist Name Role Phone Unavailable Primary Care Provider [...]
--- OUTSIDE RECORDS SUMMARY | 2025-05-16 04:15 | XMS_ITS | Encounter Summary ---
Author Organization [facility] Address [address] [address] Phone Care Team Providers Care Prn Physical Therapist Name Role Phone Malou Cortes MD Primary Care Provider +1- [phone] Encounter Details Date Type Department Care Team (Late st Contact Info) Description 01/02/2025 TCM in Dialysis Clinic [facility]. [address] [phone] Nataliia Metzger MD [address] [address] Social History Tobacco Use Types [...] on file documented as of this encounter Progress Notes * Nataliia Metzger MD - 01/02/2025 12:00 AM EDT Patient: Moustapha Ruiz : 1965 Note Type: Dialysis TCM Service Date: 01/02/2025 The patient was seen for a iyrv-xb-eryn visit as part of Transitional Care Management services. Attending Business Technology Teacher: NATALIIA METZGER MD Dialysis Location: [facility] Schedule: M-W-F Shift: 1 INTERACTIVE CONTACT This fptu-fn-wvte visit occurred within 2 business days of the patient?s discharge. HOSPITALIZATION SUMMARY Patient transitioned from: Hospital Patient transitioned to: Home Admit Date: 12/24/2024 Discharge Date: 12/31/2024 Discharged info reviewed: Followed-up on or reviewed need for pending tests/treatments as noted HOME MEDICATIONS Discharge med list reviewed and reconciled - no changes. Active treatment medication orders reviewed - no changes. PHYSICAL EXAM Exam not performed. DIALYSIS PRESCRIPTION Dry weight during admission reviewed - no change to EDW. CARE COORDINATION Post-discharge follow-up appointments reviewed with the patient. EDUCATION Education relevant to the discharge diagnosis provided to the patient or caregiver VISIT DIAGNOSES CPT Code 18340 - High complexity, seen within 7 days of discharge. N18.6 End stage renal disease Signed by: NATALIIA METZGER MD on 01/02/2025 at 09:49:32 AM Transcribed by: NATALIIA METZGER MD on 01/02/2025 at 09:49:32 AM documented in this encounter Plan of Treatment Not on file documented as of this encounter Visit Diagnoses Not on filedocumented in this encounter Care Teams Prn Physical Therapist Relationship Specialty Start Date End Date Malou Cortes MD PCP - General 07/07/20 documented as of this encounter
--- OUTSIDE RECORDS SUMMARY | 2025-05-16 04:15 | XMS_ITS | Data Portability ---
Author Organization [facility] [facility] Address [address] [place] [phone] Care Team Providers Care Build And Deployment Engineer Name Role Phone BRITTNEY FROST Primary Care Provider HIM CCA OTHER Assessment No assessment recorded. Plan of Treatment Reminders Order Date Submit Date Provider Last Modified By Organization Details Last Modified Time Details Appointments None recorded. Lab rapid strep group A, throat [address], [address] [place] [address], [id number] 3 18:31:39 rapid SARS CoV 2 Ag, QL IA, respiratory specimen [address], [address] [place] [address], [id number] 3 18:31:39 rapid flu (A+B) [address], [address] [place] [address], [id number] 3 18:31:39 Referral None recorded. Procedures None recorded. Surgeries None recorded. Imaging None recorded. Medication Orders None recorded. Patient TargetsNo targets recorded. Patient InstructionsNo instructions recorded. Reason for Referral None Reported. Results Created Date Observation Date Name Description Value Unit Range Abnormal Flag Note LastModifiedBy Organization Detail LastModifiedTime 04/08/2004/08/2023 rapid flu (A+B) Flu negati ve Not Available [facility] ed [address] [place] [address], [id number] 04/08/2023 18:31:21 04/08/2004/08/2023 rapid SARS CoV 2 Ag, QL IA, respi rator y speci men rapid SARS CoV 2 Ag, QL IA, respiratory specimen negati ve Not Available [facility] ed [address] [place] [address], [id number] 04/08/2023 18:31:20 04/08/20 23 04/08/2023 rapid strep group A, throa t Strep negati ve Not Available [facility] ed [address] [place] [address], [id number] 04/08/2023 18:31:18 Result Notes None recorded. Medical Equipment None Reported. Allergies Allergen ID Allergen Name Allergen Category Reaction Reaction Severity Criticality Documentation Date Start Date Code Code System Note Provider Name and Address Organization Details Recorded Time 9012 vancomyci n medicatio n Not available Not available Not available 04/24/2024 76316 RxNorm Not Available [facility] - production 03:48:28 [...] Available N ot Available Vitals Date Recorded Oxygen saturation Oxygen saturation in Arterial blood by Pulse oximetry Heart rate Body temperature Respiratory rate Systolic And Diastolic Provider Name and Address Organization Details Last Updated DateTime 3 95 % 95 % 85 /min 97.8 [degF] 20 /min 172/87 mm[Hg] Not Available [facility] 3 15:38:56 Date Recorded Body temperature Respiratory rate Oxygen saturation Oxygen saturation in Arterial blood by Pulse oximetry Heart rate Systolic And Diastolic Provider Name and Address Organization Details Last Updated DateTime 3 98.1 [degF] 16 /min 99 % 99 % 86 /min 93/54 mm[Hg] Not Available [facility] 3 18:30:42 Social History None recorded. Functional Status None recorded. Mental Status None recorded. Family History Nothing Reported. Medical History No medical history recorded. Past Encounters Encounter ID Performer Location Encounter Start Date Encounter Closed Date Diagnosis/Indication Diagnosis SNOMED-CT Code Diagnosis ICD10 Code Diagnosis IMO Codes Diagnosis Note [id number] Milan Ma MD Main - [facility] [address] [place] [phone] 09/13/2022 15:38:50 09/15/2022 09:13:27 Acute kidney injury [id number] N17.9 This 57-year-ol d male was hospitaliz ed a month ago with CHF and stage 3 CKD. He called today because of increasing dyspnea and weakness. His BUN was 55 and his creatinine was 4.9. I recommende d that he go to the [facility] ER for evaluation of his acute renal failure. The patient agreed with this plan. [id number] Tangela Cerrato MD Main - [facility] [address] [place] [phone] 04/08/2023 18:30:34 04/12/2023 10:52:07 Sore throat [id number] J02.9 Health Concerns Section Related Observation LastModified by Organization Detai ls LastModified Time None Recorded Concern Status LastModified by Organization Details LastModified Time None Recorded Advance Directives Directive None Recorded Payers Insurance Date Sequence Insurance Name Policy Number Policy Castro Covered Member ID Castro Member ID Guarantor Name 04/08/2023 1 [facility] - DOS PRIOR TO 2022 - DUAL ELIGIBLE (MEDICARE REPLACEMENT/ADV ANTAGE - HMO) Moustapha Ruiz [id number] Moustapha Ruiz 12/16/2023 1 [facility] - DOS ON OR AFTER 2022 - DUAL ELIGIBLE - [employer] OPTIONS AND ONE CARE (MEDICARE REPLACEMENT/ADV ANTAGE - HMO) Moustapha Ruiz [id number] Moustapha Ruiz Notes Date Note Type Note Provider Name and Address Organization Details Recorded Time 09/13/2022 text/html ROS as noted in the HPI CRC Nursing Assessment: Patient Reports: Cough; Shortness of breath with exertion Chief Complaints: Syncope/Dizziness/Lig htheadedness PMH: Diabetes, Other Allergies: Vancomycin Comments: Member calling with request for [facility] for eval for SOB and fluid retention x 1 month +fatigue. s/p hospitalization 1 month ago HX CKD VSS per [facility] nurse with member. No acute distress. Discuss if symptoms progress to seek 911-verblaize understanding. Verify member name/ ..................... ..................... ..................... ..................... ..................... ..................... ............... Data Collection Associate Note From Lily Quinones: [facility] Data Collection Associate AleshiaDon Quinones Sc6 dispatched to a red for a 57 yom C/O SOB. Upon arrival, the pt was ambulatory w/ obvious SOB, 1-2 word dyspnea. He was awake and alert, LARA X4, not in acute distress. He stated that he was discharged from [facility] 1 month prior, and that he had become increasingly short of breath on exertion since then. He stated he had stage 3 CKD, and was taking 20 mg torsemide daily. Rales heard in lower mancera. CMP acquired-results in insted. [facility] consulted; due to critically high BUN and creatinine levels, it was recommended to the pt that he seek hospitalization immediately. The pt refused 911 transport, stating his would drive him to [facility]. Data Collection Associate Allergies: Vancomycin ..................... ..................... ..................... ..................... ..................... ..................... ............... Disposition: Fulfilled Milan Ma MD [address] [facility], [place], [address], [employer] - [employer] 09/13/2022 15:43:25 04/08/2023 text/html HPI: mbr with complaints of sore throat, mbr was recently intubated for an abdominal procedure states ever since he had this done he increasingly developed sore throat, states feeling as if he had streptococcal pharyngitis. requesting [facility] visit. Protocol Used: Sore Throat Protocol-Based [...] ..................... ..................... ..................... ..................... ..................... ..................... ............... Data Collection Associate Note From Virgil Perez: Pt reports sore throat after intubation, on Tuesday for abd ax. States that since then the sore throat has been getting worse and states that today he has been feeling well. States that he had HD done and after has been tired. On scene vs taken and COVID and flu done. [facility] was called and cleared. Data Collection Associate Allergies: Vancomycin ..................... ..................... ..................... ..................... ..................... ..................... ............... Disposition: Fulfilled Tangela Cerrato MD [address], [place], [address], BENJI - JUAN ANTONIO VITALE 07/06/2023 18:36:26
--- OUTSIDE RECORDS SUMMARY | 2025-05-16 04:15 | XMS_ITS | Encounter Summary ---
Author Organization [facility] Address [address] [place] [address] Phone Care Team Providers Care Solid Waste Manager Name Role Phone Malou Cortes MD Primary Care Provider +1- [phone] Encounter Details Date Type Department Care Team (Late st Contact Info) Description 12/08/2022 Telephone [facility] [address] [place] [address] Shruti Chi Social History Tobacco [...] can be done for this PT. Ambreen: [phone] documented in this encounter Plan of Treatment Not on file documented as of this encounter Visit Diagnoses Not on filedocumented in this encounter Care Teams Solid Waste Manager Relationship Specialty Start Date End Date Malou Cortes MD PCP - General 07/07/20 documented as of this encounter
--- OUTSIDE RECORDS SUMMARY | 2025-05-16 04:15 | XMS_ITS | Encounter Summary ---
Author Organization [facility] Address [address] [address] Phone Care Team Providers Care Heel Trimmer Name Role Phone Malou Cortes MD Primary Care Provider +1- [phone] Encounter Details Date Type Department Care Team (Late st Contact Info) Description 05/15/2025 Treatment [facility] [address] [phone] Nataliia Metzger MD [address] [phone] End stage renal disease; Dependence on renal dialysis Social History Tobacco Use Types Packs/Day Years [...] Dialysis Note - Nataliia Metzger MD - 05/15/2025 12:00 AM EST BASIC NOTE Patient: Moustapha Ruiz : 1965 Note Author: NATALIIA METZGER MD Service Date: 05/15/2025 This patient was personally seen pjrp-bp-zoma for a basic visit as part of routine monthly dialysis care for end stage renal disease. Attending Design Draftsman: NATALIIA METZGER MD Dialysis Location: [facility] Schedule: Shift: 1 HOME MEDICATIONS Current [facility] Outpatient Medications allopurinol (ZYLOPRIM) 100 MG tablet TAKE 1 TABLET BY MOUTH EVERY DAY Start Date: 03/11/2025 amLODIPine (NORVASC) 5 MG tablet TAKE 1 TABLET BY MOUTH ONCE DAILY Start Date: 03/11/2025 atorvastatin (LIPITOR) 10 MG tablet Take 10 mg by mouth 1 (one) time each day Start Date: B Alidyxv-Q-Jbvsp Acid (B complex-vitamin C-folic acid) 1 MG tablet Take 1 tablet by mouth 1 (one) time each day with breakfast Start Date: 11/08/2024 bumetanide (BUMEX) 1 MG tablet Take 3 tablets (3 mg total) by mouth in the morning and 3 tablets (3 mg total) in the evening. Start Date: 11/03/2022 carvedilol (COREG) 6.25 MG tablet TAKE 2 TABLETS BY MOUTH EVERY MORNING & 2 TABLETS EVERY EVENING WITH MEALS. Start Date: 05/03/2025 D3 Super Strength 50 MCG (2000 UT) capsule Take 1 capsule by mouth 1 (one) time each day Start Date: 12/10/2022 furosemide (LASIX) 80 MG tablet TAKE 1 TABLET BY MOUTH EVERY DAY Start Date: 12/12/2024 gabapentin (NEURONTIN) 300 MG capsule Take 1 capsule (300 mg total) by mouth in the morning. Start Date: 11/08/2024 HumuLIN N 100 UNIT/ML injection INJECT 34 UNITS UNDER THE SKIN EVERY NIGHT Start Date: 02/11/2025 ketorolac (ACULAR) 0.5 % ophthalmic solution PUT 1 DROP IN LEFT EYE 4 TIMES A DAY Start Date: 11/19/2022 midodrine (PROAMATINE) 10 MG tablet TAKE 1 TABLET BY MOUTH EVERY 12 HOURS IF NEEDED (TAKE FOR SYSTOLIC BLOOD PRESSURE LESS THAN 100) Start Date: 12/12/2024 midodrine (PROAMATINE) 5 MG tablet Take 1 tablet (5 mg total) by mouth in the morning and 1 tablet (5 mg total) in the evening and 1 tablet (5 mg total) before bedtime. Hold if SBP is greater than 120.. Start Date: 02/14/2024 NovoLOG FLEXPEN 100 UNIT/ML injection PLEASE SEE ATTACHED FOR DETAILED DIRECTIONS Start Date: 11/01/2022 sevelamer carbonate (RENVELA) 800 MG tablet Take 2 tablets (1,600 mg total) by mouth 1 (one) time each day Swallow tablet whole; do not crush, break, or chew. Start Date: 05/21/2024 tamsulosin (Flomax) 0.4 MG 24 hr capsule Take 1 capsule (0.4 mg total) by mouth 1 (one) time each day Start Date: 05/03/2025 Toana SoloStar 300 UNIT/ML solution pen-injector INJECT 10 UNITS INTO THE SKIN AT BEDTIME. Start Date: 09/02/2021 Current [facility] Allergies Allergen: CEPHALEXIN Reaction: Other (see comments) Allergen: METFORMIN Reaction: Other (see comments) ADEQUACY ASSESSMENT Kt/V, Natural Log 1.53 (05/03/25) 1.90 (03/29/25) 1.50 (02/27/25) Dial KT/V 1.42 (10/02/24) 1.11 (07/06/24) UREA REDUCTION RATIO (%) 72 (05/03/25) 81 (03/29/25) 74 (02/27/25) BUN 54 (05/03/25) 26 (03/29/25) 35 (03/27/25) BUN Post Dialysis 15 (05/03/25) 5 (03/29/25) Test Canceled (03/27/25) Creatinine 8.79 (05/03/25) 5.96 (03/27/25) 7.85 (02/27/25) Bicarbonate (CO2) 19 (05/03/25) 25 (03/27/25) 21 (02/27/25) Sodium 139 (05/03/25) 139 (03/27/25) 136 (02/27/25) ANEMIA ASSESSMENT Hgb 11.5 (05/03/25) 11.6 (04/10/25) 11.8 (03/27/25) Iron Saturation (TSat) 26 (05/03/25) 30 (03/27/25) 18 (02/27/25) Ferritin 644 (05/03/25) 729 (03/27/25) 675 (02/27/25) Iron 57 (05/03/25) 60 (03/27/25) 35 (02/27/25) TIBC 221 (05/03/25) 202 (03/27/25) 199 (02/27/25) MCV 98.9 (05/03/25) 94.2 (03/27/25) 94.1 (02/27/25) Platelets 185 (05/03/25) 194 (03/27/25) 222 (02/27/25) BMM ASSESSMENT Calcium, Adjusted Total 9.2 05/03/25 9.3 03/27/25 9.1 02/27/25 Calcium 9.2 05/03/25 9.3 03/27/25 9.1 02/27/25 Phosphorus, Serum 9.2 05/03/25 6.7 03/27/25 7.6 02/27/25 Ca*PO4 84.6 05/03/25 62.3 03/27/25 69.2 02/27/25 PTH, Intact 757 03/27/25 532 01/02/25 277 11/30/24 Vitamin D, 25-Hydroxy 47 01/02/25 45 06/14/24 Magnesium 2.4 05/03/25 2.3 03/27/25 2.1 02/27/25 Alkaline Phosphatase 92 05/03/25 111 03/27/25 98 02/27/25 Aluminum 5 01/02/25 6 07/06/24 NUTRITION ASSESSMENT Albumin 4.2 05/03/25 4.3 03/27/25 4.2 02/27/25 Potassium 5.8 05/03/25 4.2 03/27/25 4.7 02/27/25 Glucose 99 05/03/25 139 03/27/25 106 02/27/25 Hemoglobin A1C 6.7 03/27/25 6.4 01/02/25 5.6 09/25/24 ADDITIONAL LABS White Blood Cells 7.6 (05/03/25) 7.6 (03/27/25) 9.8 (02/27/25) Cholesterol 126 (03/27/25) 151 (01/02/25) 118 (09/25/24) HDL 48 (03/27/25) 51 (01/02/25) 49 (09/25/24) LDL-Calc 60 (03/27/25) 79 (01/02/25) 55 (09/25/24) Triglycerides 88 (03/27/25) 104 (01/02/25) 68 (09/25/24) Hep B Surface Antibody 6 (01/02/25) Uric Acid 7.1 (01/02/25) 6.6 (07/06/24) 6.8 (06/14/24) Chol/HDL Ratio 2.6 (03/27/25) 3.0 (01/02/25) 2.4 (09/25/24) ALT (SGPT) ?7 (05/03/25) 7 (03/27/25) 9 (02/27/25) AST (SGOT) 10 (05/03/25) 14 (03/27/25) 10 (02/27/25) Signed by: NATALIIA METZGER MD on 05/15/2025 at 07:59:08 AM Transcribed by: NATALIIA METZGER MD on 05/15/2025 at 07:59:08 AM documented in this encounter Plan of Treatment Not on file documented as of this encounter Visit Diagnoses Diagnosis End stage renal disease Dependence on renal dialysis documented in this encounter Care Teams Heel Trimmer Relationship Specialty Start Date End Date Malou Cortes MD PCP - General 07/07/20 documented as of this encounter
--- OUTSIDE RECORDS SUMMARY | 2025-05-16 04:15 | XMS_ITS | Encounter Summary ---
Author Organization [facility] Address [address] [place] [address] Phone Care Team Providers Care Education Courses Sales Representative Name Role Phone Malou Cortes MD Primary Care Provider +1- [phone] Reason for Visit * Reason Comments Med Refill Encounter Details Date Type Department Care Team (Late st Contact Info) Description 07/29/2022 Refill [facility] [address] [place] [phone] Rafael Shah MD Social History Tobacco Use [...] on filedocumented in this encounter Care Teams Education Courses Sales Representative Relationship Specialty Start Date End Date Malou Cortes MD PCP - General 07/07/20 documented as of this encounter
--- OUTSIDE RECORDS SUMMARY | 2025-05-16 04:15 | XMS_ITS | Clinical Summary ---
Author Organization [employer] Address [address] [facility] [address] [place] [address] Care Team Providers Care Brake Adjuster Name Role Phone Unavailable Primary Care Provider [...] FOBT 1965 Lipid Panel 1965 Sigmoidoscopy 1965 Disability Screening 1965 Alcohol/Substance Use Screening 1979 Tobacco Screening 1979 DTaP/Tdap/Td Vaccines (1 - Tdap) 1986 Hepatitis B Vaccines (1 of 3 - 19+ 3-dose series) 1986 Pneumococcal Vaccine: 50+ Ye ars (1 of 1 - PCV) 2017 Zoster Vaccines (1 of 2) 2017 COVID-19 Vaccine ( - 2024-2 6 season) 2025 Influenza Vaccine (#1) 2025 RSV Patients and Pa tients Aged 60 [...]
--- OUTSIDE RECORDS SUMMARY | 2025-05-16 04:15 | XMS_ITS | Encounter Summary ---
Author Organization [facility] Address [address] [place] [address] Phone Care Team Providers Care Ice Cream Dispenser Name Role Phone Malou Cortes MD Primary Care Provider +1- [phone] Reason for Visit * Reason Comments Med Refill Encounter Details Date Type Department Care Team (Late st Contact Info) Description 08/06/2020 Refill [facility] [address] [place] [phone] Catalino Mancia MD [address] [place] [address] Social History Tobacco Use Types Packs/Day Years [...] on filedocumented in this encounter Care Teams Ice Cream Dispenser Relationship Specialty Start Date End Date Malou Cortes MD PCP - General 07/07/20 documented as of this encounter
--- OUTSIDE RECORDS SUMMARY | 2025-05-16 04:15 | XMS_ITS | Encounter Summary ---
Author Organization [facility] Address [address] [place] [address] Phone Care Team Providers Care Manager Group Name Role Phone Malou Cortes MD Primary Care Provider [phone]- [phone] Encounter Details Date Type Department Care Team (Late st Contact Info) Description 11/06/2024 Orders Only [facility] [address] [place] [phone] Mary Conti RN [address] [place] [phone] Social History Tobacco Use Types Packs/Day Years [...] on file documented as of this encounter Procedures Procedure Name Priority Date/Time Associated Diagnosis Comments BODY FLUID CELL COUNT Routine 11/06/2024 3:00 AM EDT documented in this encounter Results * Body fluid cell count (11/06/2024 3:00 AM EDT) Fluid Type PD Fluid [facility] Appearance, Fluid Clear [facility] Color, Fluid Colorless [facility] Fluid WBC Count <50 See Comment WBC/uL [facility] Comment: An effluent cell count with WBC >100/uL (after a dwell time of at least 2 hr), with >50% Polymorphonuclear Cells (PMNs), is highly suggestive of peritonitis (ISPD Peritonitis Guideline Recommendations: 2021 Update on Prevention and Treatment. Perit Dial Int 2021;42(2):110-153). 11/06/2024 3:00 AM EDT 11/07/2024 2:25 PM EDT Gualberto Ruiz MD LAB BODY FLUIDS AND STOOLS ORDER SAJAN Final Result APS [facility] [address] [place] [address] documented in this encounter Visit Diagnoses Not on filedocumented in this encounter Care Teams Manager Group Relationship Specialty Start Date End Date Malou Cortes MD PCP - General 07/07/20 documented as of this encounter
--- OUTSIDE RECORDS SUMMARY | 2025-05-16 04:15 | XMS_ITS | Encounter Summary ---
Author Organization [facility] Address [address] [place] [address] Phone Care Team Providers Care Scuba Diver Name Role Phone Malou Cortes MD Primary Care Provider [phone]- [phone] Encounter Details Date Type Department Care Team (Late st Contact Info) Description 11/08/2024 Orders Only [facility] [address] [place] [phone] Mary Conti, ALEAH [address] [place] [phone] Social History Tobacco Use Types Packs/Day Years [...] on filedocumented in this encounter Care Teams Scuba Diver Relationship Specialty Start Date End Date Malou Cortes MD PCP - General 07/07/20 documented as of this encounter
== END 2025-05-15 16:50 | disposition home or self-care (01) ==
PROVIDERS: PCP Internal Medicine; Visit Provider Internal Medicine
DX: Z00.01 Encounter for general adult medical examination with abnormal findings (principal); I12.0 Hypertensive chronic kidney disease with stage 5 chronic kidney disease or end stage renal disease; E11.21 Type 2 diabetes mellitus with diabetic nephropathy; Z79.4 Long term (current) use of insulin; N18.5 Chronic kidney disease, stage 5; E78.5 Hyperlipidemia, unspecified; M54.16 Radiculopathy, lumbar region; R29.6 Repeated falls; M48.07 Spinal stenosis, lumbosacral region; M54.17 Radiculopathy, lumbosacral region; F41.8 Other specified anxiety disorders; T14.8XXA Other injury of unspecified body region, initial encounter

== ENCOUNTER → 2025-05-15 15:39 | Outpatient (BNVA) | payer OTHER, SELFPAY | PROVIDERS: PCP Internal Medicine; Visit Provider Internal Medicine | DX: E11.21 Type 2 diabetes mellitus with diabetic nephropathy (principal); E11.22 Type 2 diabetes mellitus with diabetic chronic kidney disease; I12.9 Hypertensive chronic kidney disease with stage 1 through stage 4 chronic kidney disease, or unspecified chronic kidney disease; N18.5 Chronic kidney disease, stage 5; M54.16 Radiculopathy, lumbar region; E78.5 Hyperlipidemia, unspecified; R29.6 Repeated falls; M48.07 Spinal stenosis, lumbosacral region; M54.17 Radiculopathy, lumbosacral region; F41.8 Other specified anxiety disorders; S31.000A Unspecified open wound of lower back and pelvis without penetration into retroperitoneum, initial encounter; Z79.4 Long term (current) use of insulin | CPT/HCPCS: 99396 ==